=== PATIENT | female | born 1940 | race Caucasian/White ===

== ENCOUNTER 2016-07-31 11:21 | Inpatient (IN) | payer MEDICARE ==
[~2016-07-31] VITALS: Ht 157.5 cm; Wt 71.5 kg
[~2016-07-31 11:21] MED LIST: *ANUSOI PR; /MOM400 PO; ACET65TA OR; ALTA10CA OR; ALTA10CA PO; ALTA5CAP OR; ANALCR TOP; ASPI81TA83 OR; CALCTAB93 OR; CARI350T OR; CIPR250T3 OR; CLOP75TA2 PO; COLA100C2 OR; COLA50CA3 PO; CYCL5TA PO; CYCLOBENZAPRINE PO; DIABETES PILL; DULC10SU2 PO; DULC10SU9 PR; FLEEENE4 PR; FLEXERIL OR; GLUC500T PO; LEVO100T OR; LIPI10TA OR; LIPI20TA OR; LOPR50TA OR; LOPR50TA PO; LYRI100C10 PO; LYRI200C PO; METH4PACK PO; MIRA255PW PO; MIRALEX PO; NEUR300C OR; OMEP40CA2 PO; OXY IR PO; OXYC-274 PO; OXYC10TA97 OR; OXYC20TA2 PO; OXYC20TA21 PO; OXYC30TA4 PO; OXYC5CAP4 OR; OXYCO5TA PO; PERCOCET PO; PLAV75TA2 OR; PREG100CA OR; PRIL40CA OR; PROT1TAB2 PO; RANI150T PO; ROBA500T OR; ROBA500T PO; SENO8.6T5 PO; SENO8.6T9 PO; SOMA350T PO; TYLE325T5 PO; VICODINES TAB OR; ZOFR4TAB3 PO; [UNRECOGNIZED DRUG - CODE] PO; morphine sulfate IR PO; pennsaid TOP; prochlorperazine OR
[2016-07-31 12:15] LABS: MEAN CORPUSCULAR HEMOGLOBIN 31.1 pg (27.0-33.0); MEAN CORPUSCULAR HGB CONC 33.2 g/dl (32.0-36.5); MEAN CORPUSCULAR VOLUME 93.8 fl (80.0-96.0); PLATELET COUNT, AUTOMATED 213 k/mm3 (150-450); RED CELL DISTRIBUTION WIDTH 13.3 % (11.5-14.5); WHITE BLOOD COUNT 13.1 K/mm3 (4.0-10.0)
[2016-07-31] MEDS ORDERED: ACETAMINOPHEN 325 MG TAB As Ordered ONE (12:22)
[2016-07-31] MEDS ORDERED: ONDANSETRON 4MG/2ML VIAL (J2405) As Ordered ONE (12:23)
[2016-07-31] MEDS ORDERED: MORPHINE 4 MG/ML 1ML SYRINGE As Ordered ONE ×6 (12:23→22:30)
[2016-07-31 12:53] LABS: ANION GAP 10 MEQ/L (8-16); BLOOD UREA NITROGEN 14 MG/DL (7-18); CALCIUM LEVEL 9.1 MG/DL (8.8-10.2); CARBON DIOXIDE LEVEL 25 MEQ/L (21-32); CHLORIDE LEVEL 105 MEQ/L (98-107); CREATININE FOR GFR 0.88 MG/DL (0.55-1.02); GLOMERULAR FILTRATION RATE > 60.0 (>39); GLUCOSE, FASTING 155 MG/DL (83-110); POTASSIUM SERUM 3.8 MEQ/L (3.5-5.1); SODIUM LEVEL 140 MEQ/L (136-145)
--- NOTE | 2016-07-31 15:08 | REP ---
RENAL AND BLADDER ULTRASOUND: Real-time sonographic evaluation of the kidneys performed and demonstrates both kidneys to be normal in size and echotexture, right kidney measuring 11.0 x 4.6 x 3.8 cm and left kidney 12.6 x 5.6 x 5.0 cm. There is no hydronephrosis. No renal stone is seen. Urinary bladder is mildly distended with no gross abnormality. IMPRESSION: Negative renal ultrasound. Signed by James Funez MD 07/31/2016 04:13 P
[2016-07-31] MEDS ORDERED: GASTROGRAFIN SOLUTION 30ML (Q9963) As Ordered ONE (16:38)
--- NOTE | 2016-07-31 17:15 | REP ---
Abdominal series: Three views: History: Abdominal pain. Comparison chest x-ray is from 03/22/2014. Findings: Upright chest radiograph shows no evidence of infiltrate or free subdiaphragmatic air. Heart is not enlarged. The aorta is calcific. The pleural angles are sharp. Supine erect views of the abdomen demonstrate air and stool in a nondistended colon. No evidence of obstruction is seen. Phleboliths are noted in the pelvis. No mass or organomegaly is seen. Impression: Negative abdominal series. Signed by Vj Clark MD 08/01/2016 09:39 A
[2016-07-31] MEDS ORDERED: ISOVUE-370 76% 100ML VIAL (Q9967) As Ordered ONE (17:54)
--- NOTE | 2016-07-31 19:20 | REPUSA ---
CLINICAL HISTORY: Abdominal pain. TECHNIQUE: Multiple axial, sagittal and coronal CT images were obtained through the abdomen and pelvi s after administration of oral and intravenous contrast material. COMMENTS: The liver is of uniform attenuation without mass or defect. There is no intra or extrahepatic biliary ductal dilatation. The spleen is normal. The gallbladder is within normal limits. The pancreas is at rophic and partially fatty-replaced.. There is no evidence of adrenal mass. Both kidneys demonstrate prompt and equal nephrograms. The kidneys are normal in size, shape and conf iguration. There is no evidence of renal or ureteral mass. No renal or ureteral calculi are identifie d. There is no hydroureter or hydronephrosis. No evidence for appendicitis. There is no bowel wall thickening. No evidence for small or large yevgeniy l obstruction. There is no evidence of abdominal ascites or lymphadenopathy. There is no evidence of intrinsic or extrinsic bladder mass. There is no pelvic ascites or lymphadeno dar. Status post complete hysterectomy. Images of the lung bases show no evidence of pleural or parenchymal mass. There are no pleural effusi ons. The bony structures are free of lytic or blastic lesions. Multilevel degenerative changes are seen in volving the thoracolumbar spine. Scattered calcifications are seen involving the aorta and major bran ches compatible with atherosclerosis. IMPRESSION: No evidence of acute abdominal or pelvic pathology. Thank you for your kind referral of this patient.
[2016-07-31] MEDS ORDERED: CIPROFLOXACIN/D5W 400 MG/200 ML BAG (J0744) As Ordered ONE (19:24)
[2016-07-31] MEDS ORDERED: RAMI10CA PO (19:44)
[2016-07-31] MEDS ORDERED: PRED10TA PO (19:44)
[2016-07-31] MEDS ORDERED: LEVO100T5 PO (19:44)
[2016-07-31] MEDS ORDERED: METF500T PO (19:44)
[2016-07-31] MEDS ORDERED: POTA99TA PO (19:44)
[2016-07-31] MEDS ORDERED: ACETAMINOPHEN TAB 650MG DOSE (2X325MG) PO PRN (20:30)
[2016-07-31] MEDS ORDERED: GLUCOSE 4 GM CHEW TABLET PO PRN (20:30)
[2016-07-31] MEDS ORDERED: DEXTROSE 50% 50 ML SYRINGE IV PRN (20:30)
[2016-07-31] MEDS ORDERED: GLUCAGON FOR INJ 1 MG VIAL (J1610) SC PRN (20:30)
[2016-07-31] MEDS ORDERED: PERCOCET 5MG/325MG TAB As Ordered ONE (20:36)
[2016-07-31] MEDS ORDERED: MORPHINE 2 MG/ML 1ML SYRINGE As Ordered ONE (20:38)
[2016-07-31] MEDS ORDERED: VENLAFAXINE 37.5 MG TAB PO SCH (21:00)
--- NOTE | 2016-07-31 23:56 | HPE ---
DATE OF ADMISSION: 07/31/2016 PRIMARY CARE PHYSICIAN: Dr. Jakub Burgess PAIN MANAGEMENT: Dr. Moreno CHIEF COMPLAINT: Severe lower back pain with radiation to the right lower extremity. HISTORY OF THE PRESENT ILLNESS: Ms. Pollard is a 75-year-old female with multiple past medical history who presented due to experiencing severe lower back pain with radiation to the right lower extremity. The patient expressed that she has been having back pain for the past year and has been following with Dr. Moreno for pain management. The patient expressed that she received a spine injection for pain control which was performed by Dr. Moreno about 10 days ago. The patient expressed that for the past 10 days she was asymptomatic. However, yesterday, when she was reading the newspaper, she noticed excruciating back pain which was about 10/10 sharp with radiation to the right lower extremity. The patient expressed that the pain was so severe that she cannot ambulate independently and she was walking with the help of her . The patient expressed that yesterday she did not come to the hospital because she thought that the pain would decrease. Patient denies losing bowel or bladder control or numbness in the medial side of her lower extremities bilaterally. The patient also had one episode of night sweats and also patient had chills and felt warm; however, she did not take her temperature. In the morning, the patient expressed that she could not tolerate the pain anymore and that is the reason she came to the hospital. The patient expressed that she does not drive and her brought her to the hospital. The patient also experienced nausea when the pain started, and the patient had two episodes of vomiting. However, the patient also denies seeing any blood in the vomit. The patient denies lightheadedness and dizziness. The patient also denies any sick contact. The patient expressed that any movement increased her pain tremendously. However, if the patient laid down, the pain will be constant and nothing decreases it. At the emergency room (ER), the patient received acetaminophen and four doses of morphine 4 mg IV. The patient also received one dose of ceftriaxone due to having abnormal UA and hospitalist was called to admit the patient. ALLERGIES: SULFA. HOME MEDICATIONS: - Synthroid 100 mcg by mouth daily - metformin 500 mg by mouth twice a day - potassium 99 mg by mouth twice a day - prednisone 10 mg by mouth daily - ramipril 10mg by mouth daily PAST MEDICAL HISTORY: Diabetes mellitus, type 2. Transient ischemic attack (TIA). Hypertension. Vertebral artery stenosis. MRA which was done on 04/18 shows vertebral and basilar pattern, mild intracranial stenosis. Hypothyroidism. Recurrent nephrolithiasis since she was 17 years old. 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 The patient is following with Dr. Moreno (pain management). The patient was followed with [facility] 06/18. Continue conservative management. Peptic ulcer disease. Left ophthalmic artery aneurysm. MRA of the brain shows 1.8 mm on 02/18/2012. MRA of 04/18, no changes. Mild aneurysmal dilation. Cataract surgery in both eyes performed in 2012. T12 compression fracture. PAST SURGICAL HISTORY: Left wrist fracture when she was a child. Appendectomy at 16 years old. Open removal of the kidney stones two times. Left tibia fracture in 1970. Exploratory laparotomy. Hysterectomy. Left breast lumpectomy, benign. Right carpal tunnel release. Both eyes cataract lens implantation in 2012. Colonoscopy, unremarkable, which was done 12/2011. Esophagogastroduodenoscopy (EGD). Pyloric channel mentions of ulcer in 2011. SOCIAL HISTORY: The patient lives with her . The patient has not traveled outside of the [place]. The patient had five children. However, her daughter . However, she does not know what caused her . The patient, at this moment, has two sons and three daughters who are healthy for their age. The patient denies alcohol use. The patient denies history of illicit drug use or smoking. The patient has one dog. FAMILY HISTORY: The patient had one brother who had a massive heart attack and 15 years ago. The patient's father due to laryngeal cancer. The patient's mother due to heart failure at age 86. REVIEW OF SYSTEMS: The patient expressed that she has been experiencing night sweats and chills and the patient expressed that she feels warm; however, she did not take her temperature. HEENT: The patient denies acute vision or hearing changes. However, the patient expressed that she has been sensitive to light for many years. The patient denies problems with chewing food. The patient denies sinusitis. NECK: The patient denies lumps, bumps, or decreased range of motion of her neck. However, the patient expressed that she has neck pain every time that she has back pain and this is a problem for the past year. HEART: The patient denies chest pain, palpitations, racing or skipping heartbeat. LUNGS: The patient denies shortness of breath, wheezing. BACK: The patient experienced severe back pain on the lower back bilaterally with radiation to the right lower extremity. The patient expressed that palpation of the area as well as any movement increases the pain. However, the pain does not decrease by anything. ABDOMEN: The patient expressed that she has been nauseated since yesterday, possibly secondary to pain. The patient had two episodes of vomiting. However, the patient denies emesis, hemoptysis. The patient also denies melena, hematochezia. NEUROLOGIC: The patient had a history of transient ischemic attack (TIA). However, the patient denies a history of seizure-type activities. PHYSICAL EXAMINATION: VITAL SIGNS: Blood pressure 175/102, pulse 132, respiratory rate 20, temperature 101.6, pulse oximetry 94% on room air. Weight 72.57 kg. Height 157.48 cm. Body mass index (BMI) 29.26. GENERAL APPEARANCE: The patient was lying in bed in acute distress due to pain. The patient was awake, alert and oriented to time, place and person. HEENT: Normocephalic, atraumatic. Pupils are equal. Oral mucosa is moist. NECK: Soft, supple. No lymphadenopathy. No thyromegaly. The patient has mild pain with the palpation of the neck, posterior side of the neck. HEART: Tachycardia. Normal S1, S2. LUNGS: Clear breath sounds bilaterally. Good air movement. ABDOMEN: Soft, nontender. Positive bowel sounds in all quadrants. BACK: The patient has tenderness to palpation in the thoracic and lumbar area. The patient has mild range of motion of her back secondary to the pain. EXTREMITIES: No lower extremity edema. +2 pulses in both lower extremities. 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 The patient has normal left lower extremity range of motion; however, range of motion of the right lower extremity was decreased secondary to pain. Also, the patient has 5/5 strength of the left lower extremity and 4/5 strength in the right lower extremity. However, the patient has normal sensation in both lower extremities. NEUROLOGIC: Cranial nerves II-XII intact. Kernig and Brudzinski sign was negative. LABORATORY DATA: White blood cells 13.1, red blood cells 4.16, hemoglobin 12.9, hematocrit 39, MCV 93.8, MCH 31.1, MCHC 33.2, RDW 13.3, platelet count 213, neutrophils 68, lymphocytes 28, monocytes 4, platelet estimate normal, red blood cell morphology normal. Sodium 140, potassium 3.8, chloride 105, carbon dioxide 25, anion gap 10, BUN 14, creatinine 0.88, glomerular filtration rate more than 60, fasting glucose 155, lactic acid 109, calcium 9.1, C-reactive protein 6.76. Urine color yellow, urine appearance hazy, urine pH 0, urine specific gravity 1.019, urine protein 1+, urine glucose 1+, urine ketones negative, urine blood 2+, urine nitrite negative, urine bilirubin negative, urine urobilinogen 0.2, urine leukocyte esterase 3+, urine white blood cells 141, urine red blood cells 27, urine hyaline cast 0, urine bacteria 2+, urine squamous epithelial cells 1. Blood culture is pending. Urine culture is pending. Renal ultrasound: Negative. Abdomen and chest x-ray: Negative abdominal series. CT of the abdomen and pelvis with contrast, which shows no evidence of acute abdominal or pelvic pathology. ASSESSMENT AND PLAN: 1. Lower back pain with radiation to the right lower extremity. The patient has been diagnosed with spinal stenosis and has been following with Dr. Moreno (pain management) for the past year. The patient received a spine injection about 10 days ago. Due to possibility of epidural abscess versus neuropathy I have ordered MRI and the result is pending at this time. Also, we are managing the pain with Percocet, morphine. Due to the patient having a history of recurrent nephrolithiasis, renal ultrasound as well as abdominal x-ray and abdomen and pelvic CT were performed and they were negative for any new findings. Patient denies acute photophobia however has been having sensitivity to light for the past year. Also, the patient expressed that she has neck pain every time that she has back pain. The patient's Kernig and Brudzinski sign were negative. However, we have started the patient on ceftriaxone due to possibility of urinary tract infection (UTI). Also, the patient is on prednisone 10 mg by mouth daily. The patient expressed that she has been taking this medication. She has been taking it for back pain. This is a questionable medication. However, I did not stop this medication since the patient has been taking it for a long time. Further investigation required. 2. Abnormal urinalysis. The urine result indicating UTI; however, the urine culture is pending. Therefore, we have started the patient on ceftriaxone and we will continue to monitor the patient for any abnormal symptoms. 3. Diabetes mellitus, type 2. At home, the patient is on metformin. However, we have stopped metformin and started the patient on sliding scale and continue with a consistent carbohydrate diet. 4. Deep vein thrombosis (DVT) prophylaxis. We will continue the patient on heparin 5000 units subcu every 8 hours. 5. Hypothyroidism. We will continue the patient on Synthroid. 6. Hypertension. We will continue the patient on ramipril 10 mg by mouth daily. 7. Recurrent nephrolithiasis. This is a chronic issue. Abdominal x-ray, renal US and abdomen and pelvis CT were negative for new finding. My preceptor for this patient encounter was Dr. Ag Peraza. The preceptor was physically present in the building during the encounter and was fully available. As needed, all aspects of the patient interview, examination, medical decision making process, and medical care plan development were reviewed and approved by the preceptor. The preceptor is aware and concurs with the plan as stated in the body of this note and will attest to such by his/her cosignature. I, Jessica Peraza, have both independently examined this patient as well as reviewed the documentation. I have discussed in detail with the resident the findings and plan of treatment as documented in the residents documentation. I will continue to follow the patient and offer further guidance to the patients care as necessary during this hospital stay. FELICIA
[2016-08-01] VITALS (8 sets, daily range): BP systolic 100–194; BP diastolic 42–99
[2016-08-01] MEDS ORDERED: cefTRIAXone SOD 1 GM in D5W MINI-BAG PLUS 50 ML IV SCH ×2
[2016-08-01] MEDS ORDERED: PERCOCET 5MG/325MG TAB As Ordered ONE (00:04)
[2016-08-01] MEDS ORDERED: MORPHINE 2 MG/ML 1ML SYRINGE As Ordered ONE (00:04)
--- NOTE | 2016-08-01 00:43 | EDDOCDS ---
Physician Documentation [facility] Name: Ynes Pollard Age: 75 yrs Sex: Female : 1940 Arrival Date: 07/31/2016 Time: 11:21 Bed 17 Private MD: Jakub Burgess Disposition: 07/31 19:22 Critical Care: Critical care not applicable. pc Disposition: 07/31/16 19:29 Hospitalization ordered by Joselito Peraza for Inpatient Admission. 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 - Bed requested for 5 Vizcarra. - Status is Inpatient Admission. cf2 - Condition is Stable. - Problem is new. - Symptoms have improved. HPI: 12:24 This 75 yrs old Female presents to ER via Wheelchair with complaints of pc Abdominal Pain. 12:24 The history is obtained from the patient. The patient presents with abdominal pain, pc right lower quadrant. 12:29 The symptoms began gradually 17 hr. ago, and became worse this morning. Symptoms are pc ongoing and are worsening. She developed right sided abdominal pain last night, without any nausea, vomiting or bowel changes. She developed chills throughout the night, which has caused her chronic low back pain to flare up. She was seen at her [facility] today and was sent here for evaluation. She is one week s/p epidural injection by Dr. Moreno, with no post-procedure complications and with improved back pain. At its worst, the symptoms were a 10 out of 10. In the emergency department, the symptoms are a 10 out of 10. The pain is described as "pain". The is primarily located right lower quadrant. It does not radiate. The pain was associated with fever, chills, loss of appetite. The symptoms are aggravated by movement, are alleviated by nothing. The patient has not experienced similar symptoms in the past. Historical: - Allergies: SULFA (SULFONAMIDES); - Home Meds: 1. metformin 500 mg Oral tab 2 times per day 2. Ramipril Oral once daily 3. prednisone 10 mg Oral tab once daily 4. levothyroxine 100 mcg Oral cap 1 cap once daily 5. 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 - Social history: Smoking status: Patient states was never smoker of tobacco. No barriers to communication noted, The patient speaks fluent Kiswahili. - : The pt / caregiver states he / she is not on anticoagulants. Home medication list is obtained from the patient, family members. - Hospitalizations: : No recent hospitalization is reported. - Exposure Risk Screening:: None identified. - Immunization history:: All immunizations up-to-date. - Family history: Not pertinent. - Social history:: the patient is a non-smoker, the patient does not drink alcohol. ROS: 12:29 All systems are negative except if listed. The constitutional, cardiovascular, pc respiratory and neurological components are also addressed in the HPI. Exam: 12:29 General Appearance: alert, moderate distress, anxious. pc 12:29 ENT: ear, nose and throat normal, pharynx normal. 12:29 Neck: The exam reveals no acute abnormalities. ROM is normal and painless. No nuchal rigidity is noted.. 12:29 Respiratory: no respiratory distress, normal breath sounds. 12:29 Cardiovascular: regular pulse rate, regular heart rhythm, normal heart sounds, equal and full pulses bilaterally. 12:29 Abdomen: soft, no organomegaly, normal bowel sounds, moderate tenderness in the right upper quadrant, severe tenderness in the right lower quadrant, with rebound, voluntary guarding is not appreciated, involuntary guarding is elicited in the right upper quadrant and right lower quadrant. 12:29 Back: Pain is noted in the lumbar area, There is no skin color changes or swelling to suggest post injection infection. 12:29 Skin: skin color is normal, warm, dry. 12:29 Extremities: The extremities have a grossly normal appearance, are non-tender, without acute ROM abnormalities. 12:29 Neuro: oriented x 3, cranial nerves normal as tested, no motor deficits, no sensory deficits. 12:29 Psych: mood is normal. Vital Signs: 11:23 BP 175 / 102; Pulse 132; Resp 20 S; Temp 101.6(O); Pulse Ox 94% on R/A; Weight 72.57 kg dd6 / 159.99 lbs (R); Height 5 ft. 2 in. (157.48 cm) (R); 15:04 BP 146 / 65 (auto/); nr1 15:57 Resp 22; Pulse Ox 90% on R/A; Pain 7/10; nr1 16:26 BP 152 / 70 (auto/); nr1 16:26 Resp 16; Pulse Ox 97% ; nr1 17:21 BP 171 / 73 (auto/); nr1 17:21 Pulse 101; Resp 20; Temp 98.4(O); Pulse Ox 97% ; nr1 18:19 BP 164 / 74; Pulse 115; Resp 16; Temp 98.4(O); Pulse Ox 95% on R/A; Pain 10/10; nr1 20:45 Pulse Ox 94% ; cf2 20:45 BP 142 / 88; Pulse 92; Resp 20; Temp 98.0; Pain 8/10; cf2 21:04 Pulse Ox 95% ; cf2 22:01 Pulse Ox 95% ; cf2 22:18 Pulse Ox 94% ; cf2 22:29 Pulse Ox 92% ; cf2 22:40 Pulse Ox 92% ; cf2 22:49 Pulse Ox 94% ; cf2 22:59 Pulse Ox 94% ; cf2 23:08 Pulse Ox 95% ; cf2 23:19 Pulse Ox 95% ; cf2 23:28 Pulse Ox 96% ; cf2 23:38 Pulse Ox 96% ; cf2 23:45 Pulse Ox 96% ; cf2 23:53 Pulse Ox 95% ; cf2 23:58 Pulse Ox 95% ; cf2 11:23 Body Mass Index 29.26 (72.57 kg, 157.48 cm) dd6 MDM: 11:41 IV Saline Lock ordered. pc 11:41 -Blood Culture (Adults Only), peripheral from different site, or from device/port/PICC pc etc. if present ordered. 11:41 CBC with Diff Ordered. EDMS 11:41 MED Profile Ordered. EDMS 11:41 Lactic Acid (Funez tube on ice) Ordered. EDMS 11:42 C Reactive Protein Ordered. EDMS 11:42 -Blood Culture Ordered. EDMS 11:43 NOTHING BY MOUTH+DIET ordered. EDMS 11:50 -Blood Culture (Adults Only), peripheral from different site, or from device/port/PICC lbd etc. if present complete. 11:52 BLOOD CULTURES Ordered. EDMS 12:16 DIFFERENTIAL NO CHARGE Ordered. EDMS 12:16 PLATELET ESTIMATE Ordered. EDMS 12:20 Acetaminophen Tablet 650 mg PO once ordered. pc 12:21 Urinalysis Ordered. EDMS 12:21 Urine Culture Ordered. EDMS 12:21 morphine 4 mg IVP once ordered. pc 12:21 Ondansetron 4 mg IVP once ordered. pc 12:22 CBC with Diff Reviewed. pc 12:29 Differential diagnosis: cholecystitis, perforated viscous, Peritonitis, pc Ureterolithiasis, chronic back pain with acute exacerbation. Plan: meds, labs, imaging. 12:52 CBC with Diff Reviewed. pc 12:52 Lactic Acid (Funez tube on ice) Reviewed. pc 12:52 PLATELET ESTIMATE Reviewed. pc 13:30 MED Profile Reviewed. pc 13:30 C Reactive Protein Reviewed. pc 13:43 Urinalysis Reviewed. pc 13:44 morphine 4 mg IVP every 30 minutes; Document pain score/vitals after each dose (Hold if pc SBP < 90mmHg) x2 ordered. 13:46 Ultrasound, Renal Ordered. EDMS 13:58 Financial registration complete. jls1 13:59 [facility] Payment Agreement was scanned into [employer] and attached to record. jls1 14:37 Abdomen, Flat\\E\\Upright,PA Chest Ordered. EDMS 16:08 Ultrasound, Renal Reviewed. pc 16:10 CT ABD & PELVIS: IV and Oral Contrast Ordered. EDMS 18:22 morphine 4 mg IVP every 30 minutes; Document pain score/vitals after each dose (Hold if pc SBP < 90mmHg) x2 ordered. 19:17 Ultrasound, Renal Reviewed. pc 19:17 Abdomen, Flat\\E\\Upright,PA Chest Reviewed. pc 19:21 Ciprofloxacin 400 mg IVPB at 200 mL/hr once over 60 mins ordered. pc 19:22 BED REQUEST+ADM ordered. EDMS 19:22 Data reviewed: old medical records, vital signs, nurses notes. Test interpretation: LAB pc - all labs as ordered have been reviewed, interpreted and considered in the overall management of the clinical presentation; X-RAY - Test interpretation: interpreted by Radiologist and personally reviewed, Abdomen/Pelvis CT; no acute disease. The patient has been re-examined and re-evaluated. The patient's symptoms have mildly improved after treatment. Disposition: The historical points, examination findings, and any diagnostic results supporting the provided diagnosis, were discussed with the patient or legal guardian. The need for further work-up and/or treatment in the hospital was explained. 19:28 Physician consultation: Dr. Joselito Peraza MD was contacted at 19:28, regarding admission, mm11 and will see patient in ED, shortly. 19:29 NS 0.9% 1000 ml IV at 100 mL/hr continuous ordered. mm11 20:17 MRI Screening Tool - Place on chart, inform RN ordered. ss12 20:18 -MRI-Spine, Lumbar with contrast Ordered. EDMS 20:22 PHYSICAL THERAPY EVAL & TREAT ordered. EDMS 20:22 CONSISTENT CARBOHYDRATES ordered. EDMS 20:24 CBC WITH DIFFERENTIAL Ordered. EDMS 20:24 COMPLETE COMPHRENSIVE METABOLI Ordered. EDMS 20:25 -MRI-Spine, Lumbar without contrast Ordered. EDMS 20:53 MRI Screening Tool - Place on chart, inform RN complete. tmm1 21:31 oxyCODONE-acetaminophen 5 mg-325 mg 1 tabs PO once ordered. cf2 21:32 morphine 2 mg IVP once ordered. cf2 22:27 Admission / Observation Status ordered. EDMS 22:28 Written Provider Order was scanned into [employer] and attached to record. tmm1 22:51 morphine 5 mg IVP once ordered. cf2 08/01 00:13 oxyCODONE-acetaminophen 5 mg-325 mg 1 tabs PO once ordered. cf2 00:13 morphine 2 mg IVP once ordered. cf2 Administered Medications: 07/31 12:54 Drug: Acetaminophen 650 mg [acetaminophen 325 mg tablet (2 tabs)] Route: PO; nr1 12:54 Drug: morphine 4 mg [morphine 4 mg/mL intravenous cartridge (1 mL)] Route: IVP; Site: nr1 left antecubital; 12:54 Drug: Ondansetron 4 mg [ondansetron HCl 2 mg/mL intravenous solution (2 mL)] Route: nr1 IVP; Site: left antecubital; 13:51 Drug: morphine 4 mg [morphine 4 mg/mL intravenous cartridge (1 mL)] Route: IVP; Site: nr1 left antecubital; 15:09 Drug: morphine 4 mg [morphine 4 mg/mL intravenous cartridge (1 mL)] Route: IVP; Site: nr1 left forearm; 18:32 Drug: morphine 4 mg [morphine 4 mg/mL intravenous cartridge (1 mL)] Route: IVP; Site: nr1 left antecubital; 19:27 Drug: Ciprofloxacin 400 mg [ciprofloxacin 400 mg/200 mL in 5 % dextrose intravenous cf2 piggyback] Route: IVPB; Rate: 200 mL/hr; Infused Over: 60 mins; Site: left antecubital; 19:54 Drug: morphine 4 mg [morphine 4 mg/mL intravenous cartridge (1 mL)] Route: IVP; Site: cf2 left antecubital; 19:54 Drug: NS 0.9% 1000 ml [sodium chloride 0.9 % intravenous solution] Route: IV; Rate: 100 cf2 mL/hr; Site: left antecubital; 20:40 Drug: oxyCODONE-acetaminophen 1 tabs [oxycodone-acetaminophen 5 mg-325 mg tablet (1 cf2 tabs)] Route: PO; 21:33 Follow up: Response: Pain is resolved cf2 20:40 Drug: morphine 2 mg [morphine 2 mg/mL intravenous cartridge (1 mL)] Route: IVP; Site: cf2 left antecubital; 21:33 Follow up: Response: Pain is increased cf2 22:35 Drug: morphine 5 mg [morphine 4 mg/mL intravenous cartridge (1.25 mL)] Route: IVP; cf2 Site: left antecubital; 08/01 00:13 Drug: morphine 2 mg Route: IVP; Site: left antecubital; cf2 00:14 Follow up: Response: Pain is decreased cf2 00:14 Drug: oxyCODONE-acetaminophen 1 tabs [oxycodone-acetaminophen 5 mg-325 mg tablet (1 cf2 tabs)] Route: PO; 00:14 Follow up: Response: Pain is decreased cf2 Signatures: Dispatcher [employer] EDMS Andrea Cali MD MD pc Daly, Linda, Crime Scene Technician Unit lbd Tony Pinzon DO DO mm11 Haris Alejandre ss12 McLDiana sanchez, INDEPENDENT CONTRACTOR INDEPENDENT CONTRACTOR tmm1 Yeny An RN RN mk4 Tierra Pitt RN RN [place] jls1 Adele Perales RN RN cf2 Jamaal Saravia RN RN sa The chart was reviewed and I authenticate all verbal orders and agree with the evaluation and treatment provided.Attachments: 07/31 13:59 [facility] Payment Agreement jls1 22:28 Written Provider Order tmm1 MTDD
[2016-08-01] MEDS: HEPARIN SOD (PORCINE) 5000 UNITS/ML VIAL SC SCH ×4 (01:18→21:16)
[2016-08-01] MEDS: MORPHINE 2 MG/ML 1ML SYRINGE IV PRN ×6 (01:18→23:45)
[2016-08-01] MEDS: HumaLOG INSULIN (NovoLOG) PER UNIT SC SCH ×5 (01:22→20:43)
[2016-08-01] MEDS: LEVOTHYROXINE 0.1 MG TAB (100 MCG) PO SCH (05:36)
[2016-08-01 06:59] LABS: BASO # 0.2 K/mm3 (0.0-0.2); EOS # 0.1 K/mm3 (0.0-0.50); EOS % 0.4 % (0.0-3.0); LARGE UNSTAINED CELL # 0.3 K/mm3 (0.0-0.4); LARGE UNSTAINED CELL % 1.9 % (0.0-4.0); LYMPH # 2.9 K/mm3 (1.5-4.5); LYMPH % 16.8 % (24.0-44.0); MEAN CORPUSCULAR HEMOGLOBIN 30.3 pg (27.0-33.0); MEAN CORPUSCULAR HGB CONC 33.6 g/dl (32.0-36.5); MEAN CORPUSCULAR VOLUME 90.3 fl (80.0-96.0); MONO # 1.1 K/mm3 (0.0-0.8); MONO % 7.3 % (0.0-5.0); NEUTROPHILS # 11.2 K/mm3 (1.8-7.7); NEUTROPHILS % 72.6 % (36.0-66.0); PLATELET COUNT, AUTOMATED 167 k/mm3 (150-450); RED CELL DISTRIBUTION WIDTH 14.2 % (11.5-14.5); WHITE BLOOD COUNT 15.4 K/mm3 (4.0-10.0)
[2016-08-01 07:16] LABS: ALBUMIN 3.1 GM/DL (3.2-5.2); ALBUMIN/GLOBULIN RATIO 0.82 (1.00-1.93); ALKALINE PHOSPHATASE 48 U/L (45-117); ALT/SGPT 19 U/L (12-78); ANION GAP 9 MEQ/L (8-16); AST/SGOT 11 U/L (15-37); BILIRUBIN,TOTAL 0.5 MG/DL (0.2-1.0); BLOOD UREA NITROGEN 9 MG/DL (7-18); CARBON DIOXIDE LEVEL 26 MEQ/L (21-32); CHLORIDE LEVEL 104 MEQ/L (98-107); CREATININE FOR GFR 0.66 MG/DL (0.55-1.02); GLOMERULAR FILTRATION RATE > 60.0 (>39); GLUCOSE, FASTING 153 MG/DL (83-110); POTASSIUM SERUM 3.7 MEQ/L (3.5-5.1); SODIUM LEVEL 139 MEQ/L (136-145); TOTAL PROTEIN 6.9 GM/DL (6.4-8.2)
[2016-08-01] MEDS: RAMIPRIL 5 MG CAP PO SCH (08:04)
[2016-08-01] MEDS: predniSONE 10 MG TAB PO SCH (08:05)
[2016-08-01] MEDS: PERCOCET 5MG/325MG TAB PO PRN ×2 (08:06→13:23)
[2016-08-01] MEDS ORDERED: SODIUM CHLORIDE 0.9% 1000 ML IV SCH (08:15)
--- NOTE | 2016-08-01 08:56 | PHACANCOPD ---
PHARMACY VANCOMYCIN DOSING Pt Demographics Demographics Patient Age:75 , Weight:72.300 , Gender: female Adjusted Body Weight Date: 08/01/16, Adjusted Body Weight: Kg Events Past 24 Hours Events Past 24 Hours: YES: Elevation in WBC, NO: Change in CrCl, Dialysis, Diuretic Therapy, Fever, Other, Pending Diagnostics, Pending Procedures Vancomycin Vancomycin indication: SEPSIS Vancomycin Target Ranges: 15-20 mcg/ml Vancomycin Load Y/N: Yes Load Dose Date Time Vancomycin Load Dose: 1500MG Date: 08/01 Time: 0900 Vancomycin Dose Date: 08/01/16. Current Vancomycin Dose: Intermittent Dosing?: No Labs Labs Vital Signs Label Value Date Time Patient Temperature 98.7 degrees F 08/01/16 0600 Temperature Source Tympanic 08/01/16 0600 Item Value Date Time White Blood Count 13.1 K/mm3 H 07/31/16 1158 White Blood Count 15.4 K/mm3 H 08/01/16 0640 Creatinine 0.66 MG/DL 08/01/16 0640 Micro Microbiology 08/01/16 Blood Culture, Received Pending 07/31/16 Blood Culture - Preliminary, Resulted 07/31/16 Blood Culture, Received Pending 07/31/16 Urine Culture, Received Pending Creatinine Clearance Date:08/01/16. Creatinine Clearance: . Assessment and Plan Maintaining Current Dose?: Yes Reason for dose change: No Dose Change Pharmacist Note Pharmacist Note Date: 08/01/16. Pharmacist note: Patient was started on Vancomycin for sepsis. She has no history of Vancomycin use at our facility and no history of MRSA. She has 1 set of blood cultures that are showing preliminary gram + cocci in clusters. Patient was loaded on Vancomycin 1500mg then continued on 1 gram q18h. We will continue to monitor and make adjustments as necessary. KENJI POE PHARMACY Aug 01, 2016 08:56
[2016-08-01] MEDS: PIPERACILLIN/TAZOBACTAM SOD 3.375 GM in D5W MINI-BAG PLUS 50 ML IV SCH ×3 (08:57→21:15)
[2016-08-01 09:35] LABS: VENOUS BASE EXCESS -1.8 (-2.0-2.0); VENOUS O2 SATURATION 52.2 % (60.0-80.0); VENOUS PARTIAL PRESSURE CO2 58.1 mmHg (38.0-50.0); VENOUS PARTIAL PRESSURE O2 29.1 mmHg (30.0-50.0); VENOUS TOTAL CO2 27.8 MEQ/L (24.0-28.0)
[2016-08-01] MEDS: VANCOMYCIN HCL 1,000 MG, VIAL MATE ADAPTER 1 EACH in D5W 250 ML IV SCH (09:41)
[2016-08-01] MEDS ORDERED: VANCOMYCIN HCL 500 MG in D5W MINI-BAG PLUS 100 ML IV ONE (10:00)
--- NOTE | 2016-08-01 10:28 | REP ---
PORTABLE CHEST X-RAY: Single view. HISTORY: Possible pneumonia. Comparison chest x-ray July 31, 2016. FINDINGS: The lungs are symmetrically aerated and remain clear. The pleural angles are sharp. Cardiomediastinal silhouette is unchanged. There is a dextroconvex thoracic curvature again noted. IMPRESSION: No infiltrate seen. Signed by Vj Clark MD 08/01/2016 02:42 P
[2016-08-01] MEDS: SODIUM CHLORIDE 0.9% 1000 ML IV SCH (10:37)
[2016-08-01] MEDS ORDERED: NYSTATIN 100,000 UNITS/GM TOPICAL PWD 15 GM TOP PRN (12:30)
[2016-08-01] MEDS ORDERED: LORazepam 2 MG/ML VIAL (J2060) IV ONE (13:45)
--- NOTE | 2016-08-01 15:45 | IPNPDOC ---
Text Note Date of Service The patient was seen on 08/01/16 at 15:35. NOTE Subjective: Pt states she still has lumbar pain with radiculopathy to the RLE. Objective: Vitals: (see below) General: No acute distress, laying comfortably in bed. HEENT: Moist mucous membranes. Neck: No JVD or lymphadenopathy Cardiac: Tachycardic. regular rhythm. No murmurs Pulm: Clear to auscultation b/l. No wheezing, rhonchi Abd: RLQ tenderness. No rebound/guarding/rigidity. ND + BS. Obese Ext: No edema or cyanosis. Neuro: Strength 5/5 LUE/LLE. 3/5 RLE/RUE. Tremor in b/l upper extremities. CN 2-12 intact. Negative pronator drift. Negative Babinki. DTR 2+ throughout. Labs (see below) Images: Renal u/s 07/31/16 IMPRESSION: Negative renal ultrasound. CT abd/pelvis 07/31/16 The liver is of uniform attenuation without mass or defect. There is no intra or extrahepatic biliary ductal dilatation. The spleen is normal. The gallbladder is within normal limits. The pancreas is atrophic and partially fatty-replaced.. There is no evidence of adrenal mass. Both kidneys demonstrate prompt and equal nephrograms. The kidneys are normal in size, shape and configuration. There is no evidence of renal or ureteral mass. No renal or ureteral calculi are identified. There is no hydroureter or hydronephrosis. No evidence for appendicitis. There is no bowel wall thickening. No evidence for small or large bowel obstruction. There is no evidence of abdominal ascites or lymphadenopathy. There is no evidence of intrinsic or extrinsic bladder mass. There is no pelvic ascites or lymphadenopathy. Status post complete hysterectomy. Images of the lung bases show no evidence of pleural or parenchymal mass. There are no pleural effusions. The bony structures are free of lytic or blastic lesions. Multilevel degenerative changes are seen involving the thoracolumbar spine. Scattered calcifications are seen involving the aorta and major branches compatible with atherosclerosis. IMPRESSION: No evidence of acute abdominal or pelvic pathology. CXR 07/31/16 IMPRESSION: No infiltrate seen. Assessment/Plan 1. Sepsis 2/2 Gram + bacteremia. Recent spine injection 1.5 weeks ago. Patient also has a positive UA. Cultures are pending. Given that the patient is complaining of pretty significant lumbar pain with tremors in the upper extremities, and right-sided weakness, we will obtain MRIs of the spine with contrast to rule out abscess. Patient states she also has history of CVA however she appears weaker on the right than she normally is. Patient will also be having an MRI of the brain to rule out acute/subacute CVA. In the meantime patient is on broad-spectrum antibiotics. IV fluids. 2. Diabetes mellitus - continue to hold metformin. Sliding scale insulin 3. Hypothyroidism- continue Synthroid 4. Hypertension- continue ramipril 5. History of Recurrent nephrolithiasis CT negative- DVT prophy: Heparin subcutaneous VS,Fishbone, I+O VS, Fishbone, I+O Laboratory Tests 08/01/16 06:40 Calcium Level 8.0 L, Aspartate Amino Transf (AST/SGOT) 11 L, Alanine Aminotransferase (ALT/SGPT) 19, Alkaline Phosphatase 48, Total Bilirubin 0.5, Total Protein 6.9, Albumin 3.1 L, Red Blood Count 3.60 L, Mean Corpuscular Volume 90.3, Mean Corpuscular Hemoglobin 30.3, Mean Corpuscular Hemoglobin Concent 33.6, Red Cell Distribution Width 14.2, Neutrophils (%) (Auto) 72.6 H, Lymphocytes (%) (Auto) 16.8 L, Monocytes (%) (Auto) 7.3 H, Eosinophils (%) (Auto ) 0.4, Basophils (%) (Auto) 1.0, Neutrophils # (Auto) 11.2 H, Lymphocytes # ( Auto) 2.9, Monocytes # (Auto) 1.1 H, Eosinophils # (Auto) 0.1, Basophils # (Auto ) 0.2 Vital Signs Date Time Temp Pulse Resp B/P Pulse Ox O2 Delivery O2 Flow Rate FiO2 08/01/16 14:53 Room Air 08/01/16 13:53 16 08/01/16 13:16 99.2 106 127/58 96 08/01/16 06:00 2.0 I&O- Last 24 Hours up to 6 AM 08/01/16 05:59 Output Total 100 ml Balance -100 ml ARABELLA PULLIAM MD Aug 01, 2016 15:45
[2016-08-01] MEDS: CYCLOBENZAPRINE 5MG TABLET PO PRN (20:32)
--- NOTE | 2016-08-01 20:40 | REPUSA ---
CLINICAL HISTORY: Headaches. CVA. TECHNIQUE: MRI of the brain was performed without administration of intravenous contrast material. T1 spine echo, T2 fast spin echo, DWI and FLAIR sequences were obtained in sagittal, axial and coronal planes. FINDINGS: The sella and parasellar regions are unremarkable in appearance. The corpus callosum and cerebellar t onsils are of normal configuration and position. There are no intra or extra-axial collections. There is no mass effect or midline shift. There is no evidence of hematoma formation. There is no hydrocep halus. The brain stem shows no mass effects, infarcts or hemorrhage. There are no cerebellopontine tumors. T he acoustic nerves are symmetrical. No cerebellar intra-axial pathology delineated. The fourth ventri rahul and aqueduct are normal. No abnormalities of the optic nerves are identified. No dural or subdura l masses or collections are detected. No evidence of restricted diffusion. There is evidence for generalized symmetrical dilatation of the ventricles and cortical sulci consist ent with parenchymal atrophy. There are bilateral periventricular and subcortical T2 and FLAIR hyperintensities compatible with chr onic white matter ischemic disease. The visualized arterial structures demonstrate normal appearing flow voids. The VII and VIII nerve bu ndles are visualized and are unremarkable in appearance. Mucosal thickening is seen involving bilateral ethmoid and maxillary sinuses compatible with chronic sinusitis. IMPRESSION: 1. Generalized age-appropriate parenchymal atrophy. 2. Bilateral periventricular and subcortical white matter chronic ischemic changes. 3. Chronic ethmoid and maxillary sinusitis. 4. No evidence of acute intracranial pathology. Thank you for your kind referral of this patient.
--- NOTE | 2016-08-01 21:00 | REPUSA ---
CLINICAL HISTORY: Rule out abscess. TECHNIQUE: MRI of the cervical spine was performed utilizing multiple sequences in axial and sagitta l planes without and with IV contrast material. COMMENTS: The visualized osseous elements are intact with no evidence of fracture or dislocation. The marrow s ignals are within normal limits. The cervical cord is of normal uniform signal intensity without gavin dence of focal expansion. There is no evidence for tonsilar herniation. Limited views of the unarmed security guard ior fossa reveal no abnormalities. Post gadolinium sequences reveal no evidence for abnormal enhancement. Straightening of cervical lordosis is compatible with muscle spasm. Grade 1 anterolisthesis of C3 ov er C4 measures 2.5 mm. Grade 1 retrolisthesis of C5 over C6 measures 2 mm. There is moderate loss o f disc space height noted at C5-C6. Evaluation of individual levels presents the following: At C2-C3, there is no disc herniation or bulge present. Canal and foramina are patent. At C3-C4, 1 mm bulge indents the ventral thecal sac. Canal and foramina are patent. At C4-C5, central herniated disc measures 7 x 1.5 mm indent the ventral thecal sac. Canal and forami na are patent. At C5-C6, broad based herniated disc is seen across the disc space measures 20 x 3 mm in contact with the cord. Canal is stenotic. There is moderate bilateral foraminal stenosis. Spondylolisthesis an d uncovertebral joint hypertrophy contribute. At C6-C7, 1 mm bulge indents the ventral thecal sac. Canal and foramina are patent. C7-T1 level is unremarkable. There is no evidence of an abscess or abnormal enhancement. IMPRESSION: 1. At C3-C4, 1 mm bulge indents the ventral thecal sac. Canal and foramina are patent. 2. At C4-C5, central herniated disc measures 7 x 1.5 mm indent the ventral thecal sac. Canal and fo ramina are patent. 3. At C5-C6, broad based herniated disc is seen across the disc space measures 20 x 3 mm in contact with the cord. Canal is stenotic. There is moderate bilateral foraminal stenosis. Spondylolisthesi s and uncovertebral joint hypertrophy contribute. 4. At C6-C7, 1 mm bulge indents the ventral thecal sac. Canal and foramina are patent. 5. Multilevel spondylolisthesis. 6. Straightening of cervical lordosis is compatible with muscle spasm. Thank you for your kind referral of this patient. We appreciate the opportunity to participate in thi s patient's care.
--- NOTE | 2016-08-01 21:20 | REPUSA ---
CLINICAL HISTORY: Rule out abscess. TECHNIQUE: MRI of the thoracic spine was performed utilizing multiple sequences in axial, coronal an d sagittal planes without and with IV contrast material. COMMENTS: The visualized osseous elements are intact and in normal alignment with no evidence of dislocation. The marrow signals are within normal limits. The visualized posterior elements are normal and the th oracic curvature is well maintained. The thoracic cord is of uniform signal intensity without eviden ce of focal expansion. There is no attenuation of disc agent. The discs appear normally hydrated wi thout evidence of desiccation. There is no evidence of herniation or bulge. Advanced degenerative spondylosis is present. There is multilevel desiccation, Schmorl's nodes and M odic change is present. There is evidence of a mild compression fracture deformity involving L1 vertebral body likely chronic . No acute fractures. Note is made of herniated discs at T11-T12 and T12-L1 centrally which in cont act with the cord with canal stenosis. Foramina are patent. Mild bulging is present in mid to lower thoracic levels without canal or foraminal stenosis. There is no evidence of abnormal enhancement a nd no evidence of an abscess. IMPRESSION: 1. There is evidence of a mild compression fracture deformity involving L1 vertebral body likely chr onic. 2. Herniated discs at T11-T12 and T12-L1 centrally which in contact with the cord with canal stenosi s. Foramina are patent. 3. There is no evidence of abnormal enhancement and no evidence of an abscess. Thank you for your kind referral of this patient. We appreciate the opportunity to participate in thi s patient's care.
--- NOTE | 2016-08-01 21:30 | REPUSA ---
CLINICAL HISTORY: Rule out abscess. TECHNIQUE: MRI of the lumbar spine was performed utilizing multiple sequences in axial and sagittal planes without and with IV contrast material. COMMENTS: The visualized osseous elements are intact with no evidence of spondylolisthesis. The marrow signals are within normal limits. The normal lordotic curvature of the lumbar spine is well maintained. Th e conus medullaris and cauda equina are within normal limits. There is mild chronic anterior posterior compression fracture deformity noted involving L1 vertebral body. No acute fractures are present. Multilevel degenerative spondylosis is present. Evaluation of individual levels presents the following: At L5-S1, central herniated disc indents the ventral thecal sac. There is superimposed bulge. Both foramina are narrowed. Canal is mildly stenotic. Hypertrophic facet disease and ligamentum flavum h ypertrophy contribute. Left facet joint effusion is present. At L4-L5, diffuse bulge is seen. There is mild to moderate bilateral foraminal stenosis and mild to moderate central canal stenosis. Hypertrophic facet disease and ligamentum flavum hypertrophy contri bute. Left facet joint effusion is present. At L3-L4, bilobed bulge is seen. Both foramina are narrowed. Canal is patent. Hypertrophic facet d isease is seen. L1-L2 and L2-L3 levels are unremarkable. No evidence of an abscess. No abnormal enhancement is demonstrated. IMPRESSION: 1. Chronic compression fracture involving L1 vertebral body. No acute fractures. 2. No evidence of an abscess. No abnormal enhancement is demonstrated. 3. At L5-S1, central herniated disc indents the ventral thecal sac. There is superimposed bulge. B oth foramina are narrowed. Canal is mildly stenotic. Hypertrophic facet disease and ligamentum flav um hypertrophy contribute. Left facet joint effusion is present. 4. At L4-L5, diffuse bulge is seen. There is mild to moderate bilateral foraminal stenosis and mild to moderate central canal stenosis. Hypertrophic facet disease and ligamentum flavum hypertrophy co ntribute. Left facet joint effusion is present. 5. At L3-L4, bilobed bulge is seen. Both foramina are narrowed. Canal is patent. Hypertrophic fac et disease is seen. Thank you for your kind referral of this patient. We appreciate the opportunity to participate in thi s patient's care.
[2016-08-02] VITALS (7 sets, daily range): BP systolic 112–142; BP diastolic 53–70
[2016-08-02] MEDS: VANCOMYCIN HCL 1,000 MG, VIAL MATE ADAPTER 1 EACH in D5W 250 ML IV SCH ×2 (03:27→21:53)
[2016-08-02] MEDS: MORPHINE 2 MG/ML 1ML SYRINGE IV PRN (04:28)
[2016-08-02] MEDS: PIPERACILLIN/TAZOBACTAM SOD 3.375 GM in D5W MINI-BAG PLUS 50 ML IV SCH ×4 (05:04→20:28)
[2016-08-02 05:56] LABS: BASO % 0.3 % (0.0-1.0); EOS # 0.1 K/mm3 (0.0-0.50); EOS % 0.7 % (0.0-3.0); LARGE UNSTAINED CELL # 0.2 K/mm3 (0.0-0.4); LARGE UNSTAINED CELL % 2.4 % (0.0-4.0); LYMPH # 1.8 K/mm3 (1.5-4.5); LYMPH % 18.9 % (24.0-44.0); MEAN CORPUSCULAR HEMOGLOBIN 30.6 pg (27.0-33.0); MEAN CORPUSCULAR HGB CONC 32.7 g/dl (32.0-36.5); MEAN CORPUSCULAR VOLUME 93.6 fl (80.0-96.0); MONO # 0.5 K/mm3 (0.0-0.8); MONO % 5.3 % (0.0-5.0); NEUTROPHILS % 72.5 % (36.0-66.0); PLATELET COUNT, AUTOMATED 148 k/mm3 (150-450); WHITE BLOOD COUNT 9.7 K/mm3 (4.0-10.0)
[2016-08-02 06:11] LABS: ALBUMIN 2.5 GM/DL (3.2-5.2); ALBUMIN/GLOBULIN RATIO 0.74 (1.00-1.93); ALKALINE PHOSPHATASE 40 U/L (45-117); ALT/SGPT 16 U/L (12-78); ANION GAP 6 MEQ/L (8-16); AST/SGOT 10 U/L (15-37); BILIRUBIN,TOTAL 0.3 MG/DL (0.2-1.0); BLOOD UREA NITROGEN 9 MG/DL (7-18); CALCIUM LEVEL 7.7 MG/DL (8.8-10.2); CARBON DIOXIDE LEVEL 29 MEQ/L (21-32); CHLORIDE LEVEL 106 MEQ/L (98-107); CREATININE FOR GFR 0.78 MG/DL (0.55-1.02); GLOMERULAR FILTRATION RATE > 60.0 (>39); GLUCOSE, FASTING 170 MG/DL (83-110); POTASSIUM SERUM 3.4 MEQ/L (3.5-5.1); SODIUM LEVEL 141 MEQ/L (136-145); TOTAL PROTEIN 5.9 GM/DL (6.4-8.2)
[2016-08-02] MEDS: HEPARIN SOD (PORCINE) 5000 UNITS/ML VIAL SC SCH ×3 (06:31→21:54)
[2016-08-02] MEDS: LEVOTHYROXINE 0.1 MG TAB (100 MCG) PO SCH (06:31)
[2016-08-02] MEDS: HumaLOG INSULIN (NovoLOG) PER UNIT SC SCH ×4 (07:51→20:28)
[2016-08-02] MEDS ORDERED: POTASSIUM CHLORIDE 10 MEQ SR TABLET PO ONE (09:00)
[2016-08-02] MEDS ORDERED: PNEUMOCOCCAL VACCINE 0.5ML SYRINGE(90732) PNEUMOVAX 23 IM SCH (09:00)
[2016-08-02] MEDS: RAMIPRIL 5 MG CAP PO SCH (09:43)
[2016-08-02] MEDS: predniSONE 10 MG TAB PO SCH (09:43)
[2016-08-02] MEDS: PERCOCET 5MG/325MG TAB PO PRN ×2 (12:15→18:43)
[2016-08-02] MEDS: CYCLOBENZAPRINE 5MG TABLET PO PRN ×2 (12:15→18:43)
--- NOTE | 2016-08-02 15:11 | REP ---
ABDOMINAL WALL ULTRASOUND: Real-time sonographic evaluation of the abdominal wall performed in the region of redness. There is no underlying fluid collection. No other underlying soft tissue abnormality is seen. Signed by James Funez MD 08/02/2016 04:55 P
--- NOTE | 2016-08-02 16:30 | IPNPDOC ---
Text Note Date of Service The patient was seen on 08/02/16 at 16:19. NOTE Subjective: Pt states she still has lumbar pain, however it is improved. She also notes that she's been having some purulent drainage from the prior hysterectomy site. Objective: Vitals: (see below) General: No acute distress, laying comfortably in bed. HEENT: Moist mucous membranes. Neck: No JVD or lymphadenopathy Cardiac: Tachycardic. regular rhythm. No murmurs Pulm: Clear to auscultation b/l. No wheezing, rhonchi Abd: Mild RLQ tenderness and erythema alongside a horizontal scar that appears to have purulent drainage. This was the region of her prior hysterectomy. No rebound/guarding/rigidity. ND + BS. Obese Ext: No edema or cyanosis. Neuro: Strength 5/5 LUE/LLE. 3/5 RLE/RUE. Tremor in b/l upper extremities. CN 2-12 intact. Negative pronator drift. Negative Babinki. DTR 2+ throughout. Labs (see below) Images: Renal u/s 07/31/16 IMPRESSION: Negative renal ultrasound. CT abd/pelvis 07/31/16 The liver is of uniform attenuation without mass or defect. There is no intra or extrahepatic biliary ductal dilatation. The spleen is normal. The gallbladder is within normal limits. The pancreas is atrophic and partially fatty-replaced.. There is no evidence of adrenal mass. Both kidneys demonstrate prompt and equal nephrograms. The kidneys are normal in size, shape and configuration. There is no evidence of renal or ureteral mass. No renal or ureteral calculi are identified. There is no hydroureter or hydronephrosis. No evidence for appendicitis. There is no bowel wall thickening. No evidence for small or large bowel obstruction. There is no evidence of abdominal ascites or lymphadenopathy. There is no evidence of intrinsic or extrinsic bladder mass. There is no pelvic ascites or lymphadenopathy. Status post complete hysterectomy. Images of the lung bases show no evidence of pleural or parenchymal mass. There are no pleural effusions. The bony structures are free of lytic or blastic lesions. Multilevel degenerative changes are seen involving the thoracolumbar spine. Scattered calcifications are seen involving the aorta and major branches compatible with atherosclerosis. IMPRESSION: No evidence of acute abdominal or pelvic pathology. CXR 07/31/16 IMPRESSION: No infiltrate seen. Abd wall u/s 08/02/16 ABDOMINAL WALL ULTRASOUND: Real-time sonographic evaluation of the abdominal wall performed in the region of redness. There is no underlying fluid collection. No other underlying soft tissue abnormality is seen. MRI Brain 08/01/16 FINDINGS: The sella and parasellar regions are unremarkable in appearance. The corpus callosum and cerebellar tonsils are of normal configuration and position. There are no intra or extra-axial collections. There is no mass effect or midline shift. There is no evidence of hematoma formation. There is no hydrocephalus. The brain stem shows no mass effects, infarcts or hemorrhage. There are no cerebellopontine tumors. The acoustic nerves are symmetrical. No cerebellar intra-axial pathology delineated. The fourth ventricle and aqueduct are normal. No abnormalities of the optic nerves are identified. No dural or subdural masses or collections are detected. No evidence of restricted diffusion. There is evidence for generalized symmetrical dilatation of the ventricles and cortical sulci consistent with parenchymal atrophy. There are bilateral periventricular and subcortical T2 and FLAIR hyperintensities compatible with chronic white matter ischemic disease. The visualized arterial structures demonstrate normal appearing flow voids. The VII and VIII nerve bundles are visualized and are unremarkable in appearance. Mucosal thickening is seen involving bilateral ethmoid and maxillary sinuses compatible with chronic sinusitis. IMPRESSION: 1. Generalized age-appropriate parenchymal atrophy. 2. Bilateral periventricular and subcortical white matter chronic ischemic changes. 3. Chronic ethmoid and maxillary sinusitis. 4. No evidence of acute intracranial pathology. MRI Cervical spine 08/01/16 IMPRESSION: 1. At C3-C4, 1 mm bulge indents the ventral thecal sac. Canal and foramina are patent. 2. At C4-C5, central herniated disc measures 7 x 1.5 mm indent the ventral thecal sac. Canal and foramina are patent. 3. At C5-C6, broad based herniated disc is seen across the disc space measures 20 x 3 mm in contact with the cord. Canal is stenotic. There is moderate bilateral foraminal stenosis. Spondylolisthesis and uncovertebral joint hypertrophy contribute. 4. At C6-C7, 1 mm bulge indents the ventral thecal sac. Canal and foramina are patent. 5. Multilevel spondylolisthesis. 6. Straightening of cervical lordosis is compatible with muscle spasm. MRI Lumbar spine 08/01/16 IMPRESSION: 1. Chronic compression fracture involving L1 vertebral body. No acute fractures. 2. No evidence of an abscess. No abnormal enhancement is demonstrated. 3. At L5-S1, central herniated disc indents the ventral thecal sac. There is superimposed bulge. Both foramina are narrowed. Canal is mildly stenotic. Hypertrophic facet disease and ligamentum flavum hypertrophy contribute. Left facet joint effusion is present. 4. At L4-L5, diffuse bulge is seen. There is mild to moderate bilateral foraminal stenosis and mild to moderate central canal stenosis. Hypertrophic facet disease and ligamentum flavum hypertrophy contribute. Left facet joint effusion is present. 5. At L3-L4, bilobed bulge is seen. Both foramina are narrowed. Canal is patent. Hypertrophic facet disease is seen. MRI Thoracic spine 08/01/16 IMPRESSION: 1. There is evidence of a mild compression fracture deformity involving L1 vertebral body likely chronic. 2. Herniated discs at T11-T12 and T12-L1 centrally which in contact with the cord with canal stenosis. Foramina are patent. 3. There is no evidence of abnormal enhancement and no evidence of an abscess. Assessment/Plan 1. Sepsis 2/2 staph aureus. Final cultures are pending. MRIs of the cervical/ lumbar/thoracic spine negative for abscess. Echocardiogram pending. I did speak with Dr. Arnold regarding her CAT scan of the abdomen and pelvis however he does not notes an abscess adjacent to the hysterectomy scar. He does note that there is a possible carbuncle versus cyst on the left kidney which will need a repeat CAT scan once the patient's bacteremia has resolved. I also spoke with Dr. Segura who also believes that this may be a cyst however a repeat CAT scan would be warranted to ensure resolution. 2. History of CVA with baseline weakness on the right side. MRI of the brain negative for acute cva. In the meantime patient is on broad-spectrum antibiotics. IV fluids. 3. Diabetes mellitus - continue to hold metformin. Sliding scale insulin 4. Hypothyroidism- continue Synthroid 5. Hypertension- continue ramipril 6. History of Recurrent nephrolithiasis 7. 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 DVT prophy: Heparin subcutaneous VS,Fishbone, I+O VS, Fishbone, I+O Laboratory Tests 08/02/16 05:40 Calcium Level 7.7 L, Aspartate Amino Transf (AST/SGOT) 10 L, Alanine Aminotransferase (ALT/SGPT) 16, Alkaline Phosphatase 40 L, Total Bilirubin 0.3, Total Protein 5.9 L, Albumin 2.5 L, Red Blood Count 3.14 L, Mean Corpuscular Volume 93.6, Mean Corpuscular Hemoglobin 30.6, Mean Corpuscular Hemoglobin Concent 32.7, Red Cell Distribution Width 13.0, Neutrophils (%) (Auto) 72.5 H, Lymphocytes (%) (Auto) 18.9 L, Monocytes (%) (Auto) 5.3 H, Eosinophils (%) (Auto ) 0.7, Basophils (%) (Auto) 0.3, Neutrophils # (Auto) 7.0, Lymphocytes # (Auto) 1.8, Monocytes # (Auto) 0.5, Eosinophils # (Auto) 0.1, Basophils # (Auto) 0.0 Vital Signs Date Time Temp Pulse Resp B/P Pulse Ox O2 Delivery O2 Flow Rate FiO2 08/02/16 13:00 18 Room Air 08/02/16 09:43 126/60 08/02/16 08:00 98.1 109 100 2.0 I&O- Last 24 Hours up to 6 AM 08/02/16 05:59 Intake Total 3776 ml Output Total 2625 ml Balance 1151 ml ARABELLA PULLIAM MD Aug 02, 2016 16:30
--- NOTE | 2016-08-02 21:10 | ECHO ---
DATE OF PROCEDURE: 08/02/2016 REFERRING PHYSICIAN: Dr. Russell Maria PATIENT LOCATION: Room 3230 REASON FOR ECHOCARDIOGRAM: Bacteremia. 2D MEASUREMENTS: IVS: 0.98 cm LV: 4.0 cm LVPW: 1.0 cm LA: 3.7 cm Aorta: 2.9 cm DOPPLER MEASUREMENTS: Peak velocity across the aortic valve: 1.7 m/s Peak velocity across the LVOT: 0.97 m/s Mitral E: 0.88, Mitral A: 0.83, with a ratio of 1.1 Maximum tricuspid valve velocity: 2.5 m/s 2D COMMENTS: 1. Normal left ventricular size, wall thickness and normal global left ventricular systolic function. The estimated global left ventricular systolic ejection fraction is 65 to 70%. 2. Normal left atrium. Normal right atrium and right ventricle. 3. The atrial septum appeared to be normal without evidence of defect or shunt. 4. Normal aortic root. 5. No pericardial effusion seen. 6. Minimally calcified aortic valve. Leaflet excursion appeared to be normal. Mildly calcified mitral annulus with normal anterior mitral valve leaflet motion. Normal tricuspid valve and pulmonic valve. The proximal pulmonary artery branches were not well visualized. 7. The inferior vena cava appeared to be mildly enlarged in limited views. DOPPLER: It detects trace mitral regurgitation and trace to mild tricuspid regurgitation. The calculated pulmonary artery systolic pressure varies between 30 to 40 mmHg. Abnormal relaxation pattern was noted across the mitral valve annulus consistent with a pseudo-normal pattern, left ventricular end-diastolic pressure might be elevated. IMPRESSION: 1. Normal global left ventricular systolic function. There are some features of left ventricular diastolic dysfunction that might be related to artifact. 2. Aortic valve sclerosis with trivial aortic stenosis, but no aortic regurgitation. 2. Mitral annulus calcification with trace mitral regurgitation. 3. Trace to mild tricuspid regurgitation with mild pulmonary hypertension. 4. No vegetations was noted in this transthoracic echocardiogram. If any concern , consider a transesophageal echocardiogram. MTDD
--- NOTE | 2016-08-03 01:43 | EDDOCDS ---
Nurse's Notes [facility] Name: Ynes Pollard Age: 75 yrs Sex: Female : 1940 Arrival Date: 07/31/2016 Time: 11:21 Bed 17 Private MD: Jakub Burgess Diagnosis: Acute tubulo-interstitial nephritis Presentation: 07/31 11:24 Red Flag criteria, patient assessed and taken directly to a bed. dy 11:28 Presenting complaint: Patient states: last evening she started with tremors and pain in mk4 lower back excruciating , buttock and down legs which has been well controlled at Pain clinic with injections , was sent here for eval. Adult Sepsis Screening: The patient does not have new or worsening altered mentation. Patient's respiratory rate is less than 22. Systolic blood pressure is greater than 100. Patient has a qSOFA score of 0- Negative Sepsis Screen. Suicide/Homicide risk assessment- the patient denies having any suicidal and/or homicidal ideations and does not present with any other emotional, behavioral or mental health complaints. Status: Patient is not a resident services manager or dependent. Transition of care: patient was not received from another setting of care. 11:28 Acuity: PEDRO PABLO Level 3 mk4 11:28 Method Of Arrival: Wheelchair mk4 Triage Assessment: 11:34 General: Appears distressed, ill. Pain: Location: left lower back and right lower back. mk4 Historical: - Allergies: SULFA (SULFONAMIDES); - Home Meds: 1. metformin 500 mg Oral tab 2 times per day 2. Ramipril Oral once daily 3. prednisone 10 mg Oral tab once daily 4. levothyroxine 100 mcg Oral cap 1 cap once daily 5. 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 - Social history: Smoking status: Patient states was never smoker of tobacco. No barriers to communication noted, The patient speaks fluent Uzbek. - : The pt / caregiver states he / she is not on anticoagulants. Home medication list is obtained from the patient, family members. - Hospitalizations: : No recent hospitalization is reported. - Exposure Risk Screening:: None identified. - Immunization history:: All immunizations up-to-date. - Family history: Not pertinent. - Social history:: the patient is a non-smoker, the patient does not drink alcohol. Screenin:21 Screening information is obtained from the patient. Fall risk: At risk due to age. nr1 Assistance ADL's: requires no assistance with activities of daily living. Abuse/DV Screen: The patient / caregiver reports he/she is: not in a situation that causes fear, pain or injury. Nutritional screening: No deficits noted. Advance Directives: There is no active DNR order. home support is adequate. Assessment: 12:17 General: Appears distressed, uncomfortable, Behavior is crying, restless. Pain: nr1 Location: right lower quadrant Pain currently is 10 out of 10 on a pain scale. Respiratory: Airway is patent Respiratory effort is even, unlabored, Respiratory pattern is regular, symmetrical. GI: Abdomen is obese, Abd is soft Abd is tender to palpation. Derm: Skin is intact, is healthy with good turgor, Skin is pink, warm & dry. 13:30 General: Patient restless in bed with right arm tremor. Per patient "this is worse pain nr1 I have ever been in." MD aware. New medication ordered. requesting to use BSC. One person assist. UA collected. Tolerated well. Back to bed without incidence. Will continue to monitor patient. . 14:43 Reassessment: Patient states symptoms have not improved. nr1 15:52 Reassessment: Patient asleep in bed resting. Respirations even and unlabored. No signs nr1 or symptoms of distress noted. Will continue to monitor patient. . 16:21 General: Appears to be sleeping. Behavior is. Respiratory: Airway is patent Respiratory nr1 effort is even, unlabored, Respiratory pattern is regular, symmetrical, Breath sounds are clear bilaterally. Patient SpO2 86% RA. Patient sleeping. 2L O2 applied. Will continue to monitor patient. 17:32 General: Appears comfortable, Behavior is pleasant. Pain: Location: lumbar area and nr1 right upper quadrant and right lower quadrant Pain currently is 7 out of 10 on a pain scale. Neurological: Level of Consciousness is alert, obeys commands, Oriented to person, place, time, Cardiovascular: Rhythm is sinus tachycardia No ectopy. Chest pain is denied. Respiratory: Airway is patent Respiratory effort is even, unlabored, Respiratory pattern is regular, symmetrical. GI: Abdomen is obese, Abd is soft Abd is tender to palpation. Derm: Skin is intact, is healthy with good turgor, Skin is pink, warm & dry. 18:33 General: Appears distressed, uncomfortable, Behavior is crying, restless. Pain: nr1 Location: abdomen Pain currently is 10 out of 10 on a pain scale. back, Quality of pain is described as shooting, stabbing. Neurological: Level of Consciousness is awake, alert, obeys commands, Oriented to person, place, time, Cardiovascular: Rhythm is sinus tachycardia No ectopy. Chest pain. 18:33 Respiratory: Airway is patent Respiratory effort is even, unlabored, Respiratory nr1 pattern is regular, symmetrical, Breath sounds are clear bilaterally. GI: Abdomen is obese, Bowel sounds present X 4 quads. Abd is soft Abd is tender to palpation Reports nausea, Denies. Derm: Skin is intact, is healthy with good turgor, Skin is pink, warm & dry. 20:40 General: Patient crying and rocking back and for the with tremors noted. Patient states cf2 increased pain to back and abdomen. States normally gets epidural pain shots for increased pain and has not received them in approx 6 months. Patient was medicated per md admission orders with Morphine 2mg IVP and Percocet 5/325 1 tab. . 22:52 General: Patient calmer at present time. Tremors have decreased. Patient able to talk cf2 better. Will continue to monitor. Awaiting arrival of MRI . 22:55 General: Patient with no relief in symptoms. Dr Peraza was paged. Per Dr Peraza, he will cf2 assess patient. No new orders were received. 22:56 General: Dr Peraza again called as patient continues to cry and rock back and for the cf2 with tremors. Orders received for Morphine Sulfate 5mg IVP. Patient medicated per MD orders. . 08/01 00:15 General: Patient with pain increasing, patient with tremors again and crying out. cf2 Patient medicated with Morphine 2 mg IVP and Percocet 5/325 1 tab po per admission orders. . 00:15 Adult Sepsis Screening: The patient does not have new or worsening altered mentation. cf2 Patient's respiratory rate is less than 22. Systolic blood pressure is greater than 100. Patient has a qSOFA score of 0- Negative Sepsis Screen. Vital Signs: 07/31 11:23 BP 175 / 102; Pulse 132; Resp 20 S; Temp 101.6(O); Pulse Ox 94% on R/A; Weight 72.57 kg dd6 (R); Height 5 ft. 2 in. (157.48 cm) (R); 15:04 BP 146 / 65 (auto/); nr1 15:57 Resp 22; Pulse Ox 90% on R/A; Pain 7/10; nr1 16:26 BP 152 / 70 (auto/); nr1 16:26 Resp 16; Pulse Ox 97% ; nr1 17:21 BP 171 / 73 (auto/); nr1 17:21 Pulse 101; Resp 20; Temp 98.4(O); Pulse Ox 97% ; nr1 18:19 BP 164 / 74; Pulse 115; Resp 16; Temp 98.4(O); Pulse Ox 95% on R/A; Pain 10/10; nr1 20:45 Pulse Ox 94% ; cf2 20:45 BP 142 / 88; Pulse 92; Resp 20; Temp 98.0; Pain 8/10; cf2 21:04 Pulse Ox 95% ; cf2 22:01 Pulse Ox 95% ; cf2 22:18 Pulse Ox 94% ; cf2 22:29 Pulse Ox 92% ; cf2 22:40 Pulse Ox 92% ; cf2 22:49 Pulse Ox 94% ; cf2 22:59 Pulse Ox 94% ; cf2 23:08 Pulse Ox 95% ; cf2 23:19 Pulse Ox 95% ; cf2 23:28 Pulse Ox 96% ; cf2 23:38 Pulse Ox 96% ; cf2 23:45 Pulse Ox 96% ; cf2 23:53 Pulse Ox 95% ; cf2 23:58 Pulse Ox 95% ; cf2 11:23 Body Mass Index 29.26 (72.57 kg, 157.48 cm) dd6 Vitals: 11:23 Log In Time: July 31, 2016 at 11:21. RN notified that patient meets Red Flag dd6 criteria. ED Course: 11: Patient visited by Jorge Reza PCA. dd6 11:23 Jakub Burgess is Private Physician. dd6 11:23 Patient moved to Waiting dd6 11: Patient moved to Pre RCE dd6 11:31 Tierra Pitt RN is Primary Nurse. dy 11:31 Triage Initiated mk4 11:31 Patient moved to 17 dy 11:36 Andrea Cali MD is Attending Physician. pc 11:50 Patient visited by Andrea Cali MD. pc 12:18 Inserted saline lock: 20 gauge in left forearm and blood collected. The patient mlb1 tolerated the procedure well. 12:22 DIFFERENTIAL NO CHARGE Sent. pc 12:52 Patient visited by Andrea Cali MD. pc 12:54 Urine Culture Sent. nr1 12:54 Urinalysis Sent. nr1 13:59 [facility] Payment Agreement was scanned into [employer] and attached to record. jls1 14:10 Patient visited by Andrea Cali MD. pc 14:19 Patient moved to Ultrasound am10 14:31 Patient moved to 17 am10 14:46 Patient visited by Tierra Pitt RN. nr1 15:17 Ultrasound, Renal Returned. EDMS 15:54 Patient visited by Tierra Pitt RN. nr1 16:28 Patient visited by Tierra Pitt RN. nr1 16:41 Ultrasound, Renal Returned. EDMS 17:21 The patient / caregiver is instructed regarding the plan of care and ED course. Patient nr1 has correct armband on for positive identification. Placed in gown. Bed in low position. Call light in reach. Side rails up X 1. Pulse ox on. NIBP on. 17:25 Abdomen, Flat\\E\\Upright,PA Chest Returned. EDMS 17:35 Patient visited by Tierra Pitt RN. nr1 18:37 Patient visited by Andrea Cali MD. pc 19:20 Primary Nurse role handed off by Tierra Pitt RN cf2 19:20 Adele Perales,SHERRI is Primary Nurse. cf2 19:20 Patient visited by Adele Perales RN. cf2 19:28 Joselito Peraza MD is Hospitalizing Provider. mm11 19:42 CT ABD & PELVIS: IV and Oral Contrast Returned. EDMS 19:54 Patient visited by Adele Perales,SHERRI. cf2 19:55 Patient visited by Adele Perales,SHERRI. cf2 20:09 Patient visited by Adele Perales RN. cf2 20:20 Patient visited by Adele Perales RN. cf2 20:30 Patient visited by Adele Perales RN. cf2 20:34 Patient visited by Adele Perales RN. cf2 20:45 No procedures done that require assistance. cf2 21:29 Patient visited by Adele Perales RN. cf2 22:28 Written Provider Order was scanned into [employer] and attached to record. tmm1 22:50 Patient visited by Adele Perales RN. cf2 22:55 Patient visited by Adele Perales RN. cf2 23:55 Patient visited by Adele Perales RN. cf2 08/01 00:12 Patient visited by Adele Perales RN. cf2 Administered Medications: 07/31 12:54 Drug: Acetaminophen 650 mg [acetaminophen 325 mg tablet (2 tabs)] Route: PO; nr1 12:54 Drug: morphine 4 mg [morphine 4 mg/mL intravenous cartridge (1 mL)] Route: IVP; Site: nr1 left antecubital; 12:54 Drug: Ondansetron 4 mg [ondansetron HCl 2 mg/mL intravenous solution (2 mL)] Route: nr1 IVP; Site: left antecubital; 13:51 Drug: morphine 4 mg [morphine 4 mg/mL intravenous cartridge (1 mL)] Route: IVP; Site: nr1 left antecubital; 15:09 Drug: morphine 4 mg [morphine 4 mg/mL intravenous cartridge (1 mL)] Route: IVP; Site: nr1 left forearm; 18:32 Drug: morphine 4 mg [morphine 4 mg/mL intravenous cartridge (1 mL)] Route: IVP; Site: nr1 left antecubital; 19:27 Drug: Ciprofloxacin 400 mg [ciprofloxacin 400 mg/200 mL in 5 % dextrose intravenous cf2 piggyback] Route: IVPB; Rate: 200 mL/hr; Infused Over: 60 mins; Site: left antecubital; 19:54 Drug: morphine 4 mg [morphine 4 mg/mL intravenous cartridge (1 mL)] Route: IVP; Site: cf2 left antecubital; 19:54 Drug: NS 0.9% 1000 ml [sodium chloride 0.9 % intravenous solution] Route: IV; Rate: 100 cf2 mL/hr; Site: left antecubital; 20:40 Drug: oxyCODONE-acetaminophen 1 tabs [oxycodone-acetaminophen 5 mg-325 mg tablet (1 cf2 tabs)] Route: PO; 21:33 Follow up: Response: Pain is resolved cf2 20:40 Drug: morphine 2 mg [morphine 2 mg/mL intravenous cartridge (1 mL)] Route: IVP; Site: cf2 left antecubital; 21:33 Follow up: Response: Pain is increased cf2 22:35 Drug: morphine 5 mg [morphine 4 mg/mL intravenous cartridge (1.25 mL)] Route: IVP; cf2 Site: left antecubital; 08/01 00:13 Drug: morphine 2 mg Route: IVP; Site: left antecubital; cf2 00:14 Follow up: Response: Pain is decreased cf2 00:14 Drug: oxyCODONE-acetaminophen 1 tabs [oxycodone-acetaminophen 5 mg-325 mg tablet (1 cf2 tabs)] Route: PO; 00:14 Follow up: Response: Pain is decreased cf2 Order Results: Lab Order: CBC with Diff; SPEC'M 07/31/16 11:58 Test: WHITE BLOOD COUNT; Value: 13.1; Range: 4.0-10.0; Abnormal: Above high normal; Units: K/mm3; Status: F Test: RED BLOOD COUNT; Value: 4.16; Range: 4.00-5.40; Units: M/mm3; Status: F Test: HEMOGLOBIN; Value: 12.9; Range: 12.0-16.0; Units: g/dl; Status: F Test: HEMATOCRIT; Value: 39.0; Range: 36.0-47.0; Units: %; Status: F Test: MEAN CORPUSCULAR VOLUME; Value: 93.8; Range: 80.0-96.0; Units: fl; Status: F Test: MEAN CORPUSCULAR HEMOGLOBIN; Value: 31.1; Range: 27.0-33.0; Units: pg; Status: F Test: MEAN CORPUSCULAR HGB CONC; Value: 33.2; Range: 32.0-36.5; Units: g/dl; Status: F Test: RED CELL DISTRIBUTION WIDTH; Value: 13.3; Range: 11.5-14.5; Units: %; Status: F Test: PLATELET COUNT, AUTOMATED; Value: 213; Range: 150-450; Units: k/mm3; Status: F Test: NEUTROPHILS; Value: 68; Range: 35-75; Units: %; Status: F Test: LYMPHOCYTES; Value: 28; Range: 16-52; Units: %; Status: F Test: MONOCYTES; Value: 4; Range: 0-8; Units: %; Status: F Test: RBC MORPHOLOGY; Value: NORMAL; Status: F Lab Order: MED Profile; SPEC'M 07/31/16 11:58 Test: GLUCOSE, FASTING; Value: 155; Range: 83-110; Abnormal: Above high normal; Units: MG/DL; Status: F Test: BLOOD UREA NITROGEN; Value: 14; Range: 7-18; Units: MG/DL; Status: F Test: CREATININE FOR GFR; Value: 0.88; Range: 0.55-1.02; Units: MG/DL; Status: F Test: GLOMERULAR FILTRATION RATE; Value: > 60.0; Range: >39; Status: F Test: SODIUM LEVEL; Value: 140; Range: 136-145; Units: MEQ/L; Status: F Test: POTASSIUM SERUM; Value: 3.8; Range: 3.5-5.1; Units: MEQ/L; Status: F Test: CHLORIDE LEVEL; Value: 105; Range: 98-107; Units: MEQ/L; Status: F Test: CARBON DIOXIDE LEVEL; Value: 25; Range: 21-32; Units: MEQ/L; Status: F Test: ANION GAP; Value: 10; Range: 8-16; Units: MEQ/L; Status: F Test: CALCIUM LEVEL; Value: 9.1; Range: 8.8-10.2; Units: MG/DL; Status: F Test Note: ; Units are mL/min/1.73 m2 Chronic Kidney Disease Staging per NKF: Stage I & II GFR >=60 Normal to Mildly Decreased Stage III GFR 30-59 Moderately Decreased Stage IV GFR 15-29 Severely Decreased Stage V GFR <15 Very Little GFR Left ESRD GFR <15 on COUPLER Lab Order: Lactic Acid (Funez tube on ice); SPEC'M 07/31/16 11:58 Test: LACTIC ACID LEVEL, LACTATE; Value: 1.9; Range: 0.4-2.0; Units: MMOL/L; Status: F Lab Order: C Reactive Protein; [facility] 07/31/16 11:58 Test: C REACTIVE PROTEIN QUANTITATIV; Value: 6.76; Range: 0.00-0.30; Abnormal: Above high normal; Units: MG/DL; Status: F Lab Order: PLATELET ESTIMATE; [facility] 07/31/16 11:58 Test: PLATELET ESTIMATE; Value: NORMAL; Range: NORMAL; Status: F Lab Order: Urinalysis; [facility] 07/31/16 12:41 Test: APPEARANCE, URINE; Value: HAZY; Range: CLEAR; Status: F Test: COLOR, URINE; Value: YELLOW; Range: YELLOW; Status: F Test: PH,URINE; Value: 5.0; Range: 5.0-9.0; Units: UNITS; Status: F Test: SPECIFIC GRAVITY URINE AUTO; Value: 1.019; Range: 1.002-1.035; Status: F Test: PROTEIN, URINE AUTO; Value: 1+; Range: NEGATIVE; Abnormal: Above high normal; Units: mg/dL; Status: F Test: GLUCOSE, URINE (UA) AUTO; Value: 1+; Range: NEGATIVE; Abnormal: Above high normal; Units: mg/dL; Status: F Test: KETONE, URINE AUTO; Value: NEGATIVE; Range: NEGATIVE; Units: mg/dL; Status: F Test: UROBILINOGEN, URINE AUTO; Value: 0.2; Range: 0.0-2.0; Units: mg/dL; Status: F Test: BILIRUBIN, URINE AUTO; Value: NEGATIVE; Range: NEGATIVE; Status: F Test: NITRITE, URINE AUTO; Value: NEGATIVE; Range: NEGATIVE; Status: F Test: LEUKOCYTE ESTERASE, URINE AUTO; Value: 3+; Range: NEGATIVE; Abnormal: Above high normal; Status: F Test: BLOOD, URINE BLOOD; Value: 2+; Range: NEGATIVE; Abnormal: Above high normal; Status: F Test: WBC, URINE AUTO; Value: 141; Range: 0-3; Abnormal: Above high normal; Units: /HPF; Status: F Test: RBC, URINE AUTO; Value: 27; Range: 0-3; Abnormal: Above high normal; Units: /HPF; Status: F Test: BACTERIA, URINE AUTO; Value: 2+; Range: NEGATIVE; Abnormal: Above high normal; Status: F Test: SQUAMOUS EPITHELIAL CELL UR AU; Value: 1; Range: 0-6; Units: /HPF; Status: F Test: MUCUS, URINE; Value: SMALL; Range: NEGATIVE; Status: F Test: HYALINE CAST, URINE AUTO; Value: 0; Range: 0-1; Units: /LPF; Status: F Radiology Order: Ultrasound, Renal Test: Ultrasound, Renal REASON FOR EXAMINATION: ?right hydronephrosis; RENAL AND BLADDER ULTRASOUND:; ; Real-time sonographic evaluation of the kidneys performed and demonstrates both; kidneys to be normal in size and echotexture, right kidney measuring 11.0 x 4.6 x; 3.8 cm and left kidney 12.6 x 5.6 x 5.0 cm. There is no hydronephrosis. No renal; stone is seen. Urinary bladder is mildly distended with no gross abnormality.; ; IMPRESSION:; ; Negative renal ultrasound.; ; ; Signed by; James Funez MD 07/31/2016 04:13 P; Radiology Order: Abdomen, Flat\\E\\Upright,PA Chest Test: Abdomen, Flat\\E\\Upright,PA Chest REASON FOR EXAMINATION: Abdomen Pain; Abdominal series: Three views:; ; History: Abdominal pain.; ; Comparison chest x-ray is from 03/22/2014.; ; Findings: Upright chest radiograph shows no evidence of infiltrate or free; subdiaphragmatic air. Heart is not enlarged. The aorta is calcific. The; pleural angles are sharp.; ; Supine erect views of the abdomen demonstrate air and stool in a nondistended; colon. No evidence of obstruction is seen. Phleboliths are noted in the pelvis.; No mass or organomegaly is seen.; ; Impression:; Negative abdominal series.; ; ; ; ; ; Unreviewed; Radiology Order: CT ABD & PELVIS: IV and Oral Contrast Test: CT ABD & PELVIS: IV and Oral Contrast REASON FOR EXAMINATION: Diverticulitis; ; CLINICAL HISTORY: Abdominal pain.; TECHNIQUE: Multiple axial, sagittal and coronal CT images were obtained through the abdomen and pelvi; s after administration of oral and intravenous contrast material.; COMMENTS:; The liver is of uniform attenuation without mass or defect. There is no intra or extrahepatic biliary; ductal dilatation. The spleen is normal. The gallbladder is within normal limits. The pancreas is at; rophic and partially fatty-replaced.. There is no evidence of adrenal mass.; Both kidneys demonstrate prompt and equal nephrograms. The kidneys are normal in size, shape and conf; iguration. There is no evidence of renal or ureteral mass. No renal or ureteral calculi are identifie; d. There is no hydroureter or hydronephrosis.; No evidence for appendicitis. There is no bowel wall thickening. No evidence for small or large yevgeniy; l obstruction. There is no evidence of abdominal ascites or lymphadenopathy.; There is no evidence of intrinsic or extrinsic bladder mass. There is no pelvic ascites or lymphadeno; dar. Status post complete hysterectomy.; Images of the lung bases show no evidence of pleural or parenchymal mass. There are no pleural effusi; ons.; The bony structures are free of lytic or blastic lesions. Multilevel degenerative changes are seen in; volving the thoracolumbar spine. Scattered calcifications are seen involving the aorta and major bran; ches compatible with atherosclerosis.; IMPRESSION:; No evidence of acute abdominal or pelvic pathology.; Thank you for your kind referral of this patient.; ; Outcome: 07/31 19:29 Decision to Hospitalize by Provider. mm11 20:45 Discharge Assessment: Patient awake, alert and oriented x 3. No cognitive and/or cf2 functional deficits noted. Patient verbalized understanding of disposition instructions. Patient awake and alert. patient administered narcotics - yes. The following High Risk Discharge criteria are identified: None. Admitted to Floor via stretcher. Condition: unchanged. CT Study completed. Property :Personal belongings accompany Pt. 08/01 00:42 Patient left the ED. cf2 Signatures: Dispatcher [employer] EDMS Andrea Cali MD MD pc Youngs, David RN Luis Finley RN RN mlb1 Tony Pinzon DO DO mm11 Shital Peoples am10 Jorge Reza, JR. JAVA DEVELOPER JR. JAVA DEVELOPER dd6 Diana Hennessy, JR. JAVA DEVELOPER JR. JAVA DEVELOPER tmm1 Yeny An RN RN mk4 Tierra Pitt,RN RN nr1 Phyllis Sheehan jls1 Familetti-Manuel,Adele,RN RN cf2 Chart Complete MTDD
--- NOTE | 2016-08-03 01:43 | EDDOCDS ---
Physician Documentation [facility] Name: Ynes Pollard Age: 75 yrs Sex: Female : 1940 Arrival Date: 07/31/2016 Time: 11:21 Bed 17 Private MD: Jakub Burgess Disposition: 07/31 19:22 Critical Care: Critical care not applicable. pc Disposition: 07/31/16 19:29 Hospitalization ordered by Joselito Peraza for Inpatient Admission. 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 - Bed requested for 5 Vizcarra. - Status is Inpatient Admission. cf2 - Condition is Stable. - Problem is new. - Symptoms have improved. HPI: 12:24 This 75 yrs old Female presents to ER via Wheelchair with complaints of pc Abdominal Pain. 12:24 The history is obtained from the patient. The patient presents with abdominal pain, pc right lower quadrant. 12:29 The symptoms began gradually 17 hr. ago, and became worse this morning. Symptoms are pc ongoing and are worsening. She developed right sided abdominal pain last night, without any nausea, vomiting or bowel changes. She developed chills throughout the night, which has caused her chronic low back pain to flare up. She was seen at her [facility] today and was sent here for evaluation. She is one week s/p epidural injection by Dr. Moreno, with no post-procedure complications and with improved back pain. At its worst, the symptoms were a 10 out of 10. In the emergency department, the symptoms are a 10 out of 10. The pain is described as "pain". The is primarily located right lower quadrant. It does not radiate. The pain was associated with fever, chills, loss of appetite. The symptoms are aggravated by movement, are alleviated by nothing. The patient has not experienced similar symptoms in the past. Historical: - Allergies: SULFA (SULFONAMIDES); - Home Meds: 1. metformin 500 mg Oral tab 2 times per day 2. Ramipril Oral once daily 3. prednisone 10 mg Oral tab once daily 4. levothyroxine 100 mcg Oral cap 1 cap once daily 5. 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 - Social history: Smoking status: Patient states was never smoker of tobacco. No barriers to communication noted, The patient speaks fluent Hungarian. - : The pt / caregiver states he / she is not on anticoagulants. Home medication list is obtained from the patient, family members. - Hospitalizations: : No recent hospitalization is reported. - Exposure Risk Screening:: None identified. - Immunization history:: All immunizations up-to-date. - Family history: Not pertinent. - Social history:: the patient is a non-smoker, the patient does not drink alcohol. ROS: 12:29 All systems are negative except if listed. The constitutional, cardiovascular, pc respiratory and neurological components are also addressed in the HPI. Exam: 12:29 General Appearance: alert, moderate distress, anxious. pc 12:29 ENT: ear, nose and throat normal, pharynx normal. 12:29 Neck: The exam reveals no acute abnormalities. ROM is normal and painless. No nuchal rigidity is noted.. 12:29 Respiratory: no respiratory distress, normal breath sounds. 12:29 Cardiovascular: regular pulse rate, regular heart rhythm, normal heart sounds, equal and full pulses bilaterally. 12:29 Abdomen: soft, no organomegaly, normal bowel sounds, moderate tenderness in the right upper quadrant, severe tenderness in the right lower quadrant, with rebound, voluntary guarding is not appreciated, involuntary guarding is elicited in the right upper quadrant and right lower quadrant. 12:29 Back: Pain is noted in the lumbar area, There is no skin color changes or swelling to suggest post injection infection. 12:29 Skin: skin color is normal, warm, dry. 12:29 Extremities: The extremities have a grossly normal appearance, are non-tender, without acute ROM abnormalities. 12:29 Neuro: oriented x 3, cranial nerves normal as tested, no motor deficits, no sensory deficits. 12:29 Psych: mood is normal. Vital Signs: 11:23 BP 175 / 102; Pulse 132; Resp 20 S; Temp 101.6(O); Pulse Ox 94% on R/A; Weight 72.57 kg dd6 / 159.99 lbs (R); Height 5 ft. 2 in. (157.48 cm) (R); 15:04 BP 146 / 65 (auto/); nr1 15:57 Resp 22; Pulse Ox 90% on R/A; Pain 7/10; nr1 16:26 BP 152 / 70 (auto/); nr1 16:26 Resp 16; Pulse Ox 97% ; nr1 17:21 BP 171 / 73 (auto/); nr1 17:21 Pulse 101; Resp 20; Temp 98.4(O); Pulse Ox 97% ; nr1 18:19 BP 164 / 74; Pulse 115; Resp 16; Temp 98.4(O); Pulse Ox 95% on R/A; Pain 10/10; nr1 20:45 Pulse Ox 94% ; cf2 20:45 BP 142 / 88; Pulse 92; Resp 20; Temp 98.0; Pain 8/10; cf2 21:04 Pulse Ox 95% ; cf2 22:01 Pulse Ox 95% ; cf2 22:18 Pulse Ox 94% ; cf2 22:29 Pulse Ox 92% ; cf2 22:40 Pulse Ox 92% ; cf2 22:49 Pulse Ox 94% ; cf2 22:59 Pulse Ox 94% ; cf2 23:08 Pulse Ox 95% ; cf2 23:19 Pulse Ox 95% ; cf2 23:28 Pulse Ox 96% ; cf2 23:38 Pulse Ox 96% ; cf2 23:45 Pulse Ox 96% ; cf2 23:53 Pulse Ox 95% ; cf2 23:58 Pulse Ox 95% ; cf2 11:23 Body Mass Index 29.26 (72.57 kg, 157.48 cm) dd6 MDM: 11:41 IV Saline Lock ordered. pc 11:41 -Blood Culture (Adults Only), peripheral from different site, or from device/port/PICC pc etc. if present ordered. 11:41 CBC with Diff Ordered. EDMS 11:41 MED Profile Ordered. EDMS 11:41 Lactic Acid (Funez tube on ice) Ordered. EDMS 11:42 C Reactive Protein Ordered. EDMS 11:42 -Blood Culture Ordered. EDMS 11:43 NOTHING BY MOUTH+DIET ordered. EDMS 11:50 -Blood Culture (Adults Only), peripheral from different site, or from device/port/PICC lbd etc. if present complete. 11:52 BLOOD CULTURES Ordered. EDMS 12:16 DIFFERENTIAL NO CHARGE Ordered. EDMS 12:16 PLATELET ESTIMATE Ordered. EDMS 12:20 Acetaminophen Tablet 650 mg PO once ordered. pc 12:21 Urinalysis Ordered. EDMS 12:21 Urine Culture Ordered. EDMS 12:21 morphine 4 mg IVP once ordered. pc 12:21 Ondansetron 4 mg IVP once ordered. pc 12:22 CBC with Diff Reviewed. pc 12:29 Differential diagnosis: cholecystitis, perforated viscous, Peritonitis, pc Ureterolithiasis, chronic back pain with acute exacerbation. Plan: meds, labs, imaging. 12:52 CBC with Diff Reviewed. pc 12:52 Lactic Acid (Funez tube on ice) Reviewed. pc 12:52 PLATELET ESTIMATE Reviewed. pc 13:30 MED Profile Reviewed. pc 13:30 C Reactive Protein Reviewed. pc 13:43 Urinalysis Reviewed. pc 13:44 morphine 4 mg IVP every 30 minutes; Document pain score/vitals after each dose (Hold if pc SBP < 90mmHg) x2 ordered. 13:46 Ultrasound, Renal Ordered. EDMS 13:58 Financial registration complete. jls1 13:59 [facility] Payment Agreement was scanned into [employer] and attached to record. jls1 14:37 Abdomen, Flat\\E\\Upright,PA Chest Ordered. EDMS 16:08 Ultrasound, Renal Reviewed. pc 16:10 CT ABD & PELVIS: IV and Oral Contrast Ordered. EDMS 18:22 morphine 4 mg IVP every 30 minutes; Document pain score/vitals after each dose (Hold if pc SBP < 90mmHg) x2 ordered. 19:17 Ultrasound, Renal Reviewed. pc 19:17 Abdomen, Flat\\E\\Upright,PA Chest Reviewed. pc 19:21 Ciprofloxacin 400 mg IVPB at 200 mL/hr once over 60 mins ordered. pc 19:22 BED REQUEST+ADM ordered. EDMS 19:22 Data reviewed: old medical records, vital signs, nurses notes. Test interpretation: LAB pc - all labs as ordered have been reviewed, interpreted and considered in the overall management of the clinical presentation; X-RAY - Test interpretation: interpreted by Radiologist and personally reviewed, Abdomen/Pelvis CT; no acute disease. The patient has been re-examined and re-evaluated. The patient's symptoms have mildly improved after treatment. Disposition: The historical points, examination findings, and any diagnostic results supporting the provided diagnosis, were discussed with the patient or legal guardian. The need for further work-up and/or treatment in the hospital was explained. 19:28 Physician consultation: Dr. Joselito Peraza MD was contacted at 19:28, regarding admission, mm11 and will see patient in ED, shortly. 19:29 NS 0.9% 1000 ml IV at 100 mL/hr continuous ordered. mm11 20:17 MRI Screening Tool - Place on chart, inform RN ordered. ss12 20:18 -MRI-Spine, Lumbar with contrast Ordered. EDMS 20:22 PHYSICAL THERAPY EVAL & TREAT ordered. EDMS 20:22 CONSISTENT CARBOHYDRATES ordered. EDMS 20:24 CBC WITH DIFFERENTIAL Ordered. EDMS 20:24 COMPLETE COMPHRENSIVE METABOLI Ordered. EDMS 20:25 -MRI-Spine, Lumbar without contrast Ordered. EDMS 20:53 MRI Screening Tool - Place on chart, inform RN complete. tmm1 21:31 oxyCODONE-acetaminophen 5 mg-325 mg 1 tabs PO once ordered. cf2 21:32 morphine 2 mg IVP once ordered. cf2 22:27 Admission / Observation Status ordered. EDMS 22:28 Written Provider Order was scanned into [employer] and attached to record. tmm1 22:51 morphine 5 mg IVP once ordered. cf2 08/01 00:13 oxyCODONE-acetaminophen 5 mg-325 mg 1 tabs PO once ordered. cf2 00:13 morphine 2 mg IVP once ordered. cf2 Administered Medications: 07/31 12:54 Drug: Acetaminophen 650 mg [acetaminophen 325 mg tablet (2 tabs)] Route: PO; nr1 12:54 Drug: morphine 4 mg [morphine 4 mg/mL intravenous cartridge (1 mL)] Route: IVP; Site: nr1 left antecubital; 12:54 Drug: Ondansetron 4 mg [ondansetron HCl 2 mg/mL intravenous solution (2 mL)] Route: nr1 IVP; Site: left antecubital; 13:51 Drug: morphine 4 mg [morphine 4 mg/mL intravenous cartridge (1 mL)] Route: IVP; Site: nr1 left antecubital; 15:09 Drug: morphine 4 mg [morphine 4 mg/mL intravenous cartridge (1 mL)] Route: IVP; Site: nr1 left forearm; 18:32 Drug: morphine 4 mg [morphine 4 mg/mL intravenous cartridge (1 mL)] Route: IVP; Site: nr1 left antecubital; 19:27 Drug: Ciprofloxacin 400 mg [ciprofloxacin 400 mg/200 mL in 5 % dextrose intravenous cf2 piggyback] Route: IVPB; Rate: 200 mL/hr; Infused Over: 60 mins; Site: left antecubital; 19:54 Drug: morphine 4 mg [morphine 4 mg/mL intravenous cartridge (1 mL)] Route: IVP; Site: cf2 left antecubital; 19:54 Drug: NS 0.9% 1000 ml [sodium chloride 0.9 % intravenous solution] Route: IV; Rate: 100 cf2 mL/hr; Site: left antecubital; 20:40 Drug: oxyCODONE-acetaminophen 1 tabs [oxycodone-acetaminophen 5 mg-325 mg tablet (1 cf2 tabs)] Route: PO; 21:33 Follow up: Response: Pain is resolved cf2 20:40 Drug: morphine 2 mg [morphine 2 mg/mL intravenous cartridge (1 mL)] Route: IVP; Site: cf2 left antecubital; 21:33 Follow up: Response: Pain is increased cf2 22:35 Drug: morphine 5 mg [morphine 4 mg/mL intravenous cartridge (1.25 mL)] Route: IVP; cf2 Site: left antecubital; 08/01 00:13 Drug: morphine 2 mg Route: IVP; Site: left antecubital; cf2 00:14 Follow up: Response: Pain is decreased cf2 00:14 Drug: oxyCODONE-acetaminophen 1 tabs [oxycodone-acetaminophen 5 mg-325 mg tablet (1 cf2 tabs)] Route: PO; 00:14 Follow up: Response: Pain is decreased cf2 Signatures: Dispatcher [employer] EDMS Andrea Cali MD MD pc Daly, Linda, Personal Injury Legal Assistant Unit lbd Tony Pinzon DO DO mm11 Haris Alejandre ss12 McLDiana sanchez, LENS GRINDER APPRENTICE LENS GRINDER APPRENTICE tmm1 Yeny An RN RN mk4 Tierra Pitt RN RN [place] jls1 Adele Perales RN RN cf2 Jamaal Saravia RN RN sa The chart was reviewed and I authenticate all verbal orders and agree with the evaluation and treatment provided.Attachments: 07/31 13:59 [facility] Payment Agreement [email or web address] 22:28 Written Provider Order tmm1 Chart Complete MTDD
[2016-08-03] MEDS: CYCLOBENZAPRINE 5MG TABLET PO PRN ×3 (02:34→23:31)
[2016-08-03] MEDS: PIPERACILLIN/TAZOBACTAM SOD 3.375 GM in D5W MINI-BAG PLUS 50 ML IV SCH ×2 (02:34→09:22)
[2016-08-03] MEDS: PERCOCET 5MG/325MG TAB PO PRN ×3 (02:35→23:31)
[2016-08-03 04:45] VITALS: BP 141/75
[2016-08-03 05:41] LABS: BASO % 0.3 % (0.0-1.0); EOS # 0.1 K/mm3 (0.0-0.50); EOS % 0.9 % (0.0-3.0); LARGE UNSTAINED CELL # 0.2 K/mm3 (0.0-0.4); LARGE UNSTAINED CELL % 2.3 % (0.0-4.0); LYMPH # 2.4 K/mm3 (1.5-4.5); LYMPH % 29.5 % (24.0-44.0); MEAN CORPUSCULAR HEMOGLOBIN 30.9 pg (27.0-33.0); MEAN CORPUSCULAR VOLUME 90.9 fl (80.0-96.0); MONO # 0.5 K/mm3 (0.0-0.8); MONO % 5.5 % (0.0-5.0); NEUTROPHILS % 61.4 % (36.0-66.0); PLATELET COUNT, AUTOMATED 156 k/mm3 (150-450); RED CELL DISTRIBUTION WIDTH 12.9 % (11.5-14.5); WHITE BLOOD COUNT 8.1 K/mm3 (4.0-10.0)
[2016-08-03 06:14] LABS: ALBUMIN 2.5 GM/DL (3.2-5.2); ALBUMIN/GLOBULIN RATIO 0.69 (1.00-1.93); ALKALINE PHOSPHATASE 45 U/L (45-117); ALT/SGPT 22 U/L (12-78); ANION GAP 7 MEQ/L (8-16); AST/SGOT 12 U/L (15-37); BILIRUBIN,TOTAL 0.4 MG/DL (0.2-1.0); BLOOD UREA NITROGEN 13 MG/DL (7-18); CARBON DIOXIDE LEVEL 28 MEQ/L (21-32); CHLORIDE LEVEL 107 MEQ/L (98-107); CREATININE FOR GFR 0.78 MG/DL (0.55-1.02); GLOMERULAR FILTRATION RATE > 60.0 (>39); GLUCOSE, FASTING 111 MG/DL (83-110); POTASSIUM SERUM 3.8 MEQ/L (3.5-5.1); SODIUM LEVEL 142 MEQ/L (136-145); TOTAL PROTEIN 6.1 GM/DL (6.4-8.2)
[2016-08-03] MEDS: HEPARIN SOD (PORCINE) 5000 UNITS/ML VIAL SC SCH ×3 (07:43→21:56)
[2016-08-03] MEDS: HumaLOG INSULIN (NovoLOG) PER UNIT SC SCH ×4 (07:45→20:25)
[2016-08-03 08:00] VITALS: BP 134/70
[2016-08-03] MEDS: predniSONE 10 MG TAB PO SCH (08:10)
[2016-08-03] MEDS: RAMIPRIL 5 MG CAP PO SCH (08:11)
[2016-08-03] MEDS: SLF 3 ML SYR IV PRN ×2 (09:21→18:04)
[2016-08-03] MEDS: LEVOTHYROXINE 0.1 MG TAB (100 MCG) PO SCH (10:12)
[2016-08-03 12:00] VITALS: BP 130/70
--- NOTE | 2016-08-03 14:50 | IPNPDOC ---
Text Note Date of Service The patient was seen on 08/03/16 at 14:43. NOTE Subjective: Pt denies any current complaints. States the drainage from her lower abdomen has significantly improved. Objective: Vitals: (see below) General: No acute distress, laying comfortably in bed. HEENT: Moist mucous membranes. Neck: No JVD or lymphadenopathy Cardiac: RRR. 3/6 Systolic murmur loudest at the 2nd RICS. Pulm: Clear to auscultation b/l. No wheezing, rhonchi Abd: Horizontal scar of prior hysterectomy with no drainage today. NT/ND + BS. Obese Ext: No edema or cyanosis. Neuro: Strength 5/5 LUE/LLE. 3/5 RLE/RUE. Tremor in b/l upper extremities. CN 2-12 intact. Negative pronator drift. Negative Babinki. DTR 2+ throughout. Labs (see below) Images: Renal u/s 07/31/16 IMPRESSION: Negative renal ultrasound. CT abd/pelvis 07/31/16 The liver is of uniform attenuation without mass or defect. There is no intra or extrahepatic biliary ductal dilatation. The spleen is normal. The gallbladder is within normal limits. The pancreas is atrophic and partially fatty-replaced.. There is no evidence of adrenal mass. Both kidneys demonstrate prompt and equal nephrograms. The kidneys are normal in size, shape and configuration. There is no evidence of renal or ureteral mass. No renal or ureteral calculi are identified. There is no hydroureter or hydronephrosis. No evidence for appendicitis. There is no bowel wall thickening. No evidence for small or large bowel obstruction. There is no evidence of abdominal ascites or lymphadenopathy. There is no evidence of intrinsic or extrinsic bladder mass. There is no pelvic ascites or lymphadenopathy. Status post complete hysterectomy. Images of the lung bases show no evidence of pleural or parenchymal mass. There are no pleural effusions. The bony structures are free of lytic or blastic lesions. Multilevel degenerative changes are seen involving the thoracolumbar spine. Scattered calcifications are seen involving the aorta and major branches compatible with atherosclerosis. IMPRESSION: No evidence of acute abdominal or pelvic pathology. CXR 07/31/16 IMPRESSION: No infiltrate seen. Abd wall u/s 08/02/16 ABDOMINAL WALL ULTRASOUND: Real-time sonographic evaluation of the abdominal wall performed in the region of redness. There is no underlying fluid collection. No other underlying soft tissue abnormality is seen. MRI Brain 08/01/16 FINDINGS: The sella and parasellar regions are unremarkable in appearance. The corpus callosum and cerebellar tonsils are of normal configuration and position. There are no intra or extra-axial collections. There is no mass effect or midline shift. There is no evidence of hematoma formation. There is no hydrocephalus. The brain stem shows no mass effects, infarcts or hemorrhage. There are no cerebellopontine tumors. The acoustic nerves are symmetrical. No cerebellar intra-axial pathology delineated. The fourth ventricle and aqueduct are normal. No abnormalities of the optic nerves are identified. No dural or subdural masses or collections are detected. No evidence of restricted diffusion. There is evidence for generalized symmetrical dilatation of the ventricles and cortical sulci consistent with parenchymal atrophy. There are bilateral periventricular and subcortical T2 and FLAIR hyperintensities compatible with chronic white matter ischemic disease. The visualized arterial structures demonstrate normal appearing flow voids. The VII and VIII nerve bundles are visualized and are unremarkable in appearance. Mucosal thickening is seen involving bilateral ethmoid and maxillary sinuses compatible with chronic sinusitis. IMPRESSION: 1. Generalized age-appropriate parenchymal atrophy. 2. Bilateral periventricular and subcortical white matter chronic ischemic changes. 3. Chronic ethmoid and maxillary sinusitis. 4. No evidence of acute intracranial pathology. MRI Cervical spine 08/01/16 IMPRESSION: 1. At C3-C4, 1 mm bulge indents the ventral thecal sac. Canal and foramina are patent. 2. At C4-C5, central herniated disc measures 7 x 1.5 mm indent the ventral thecal sac. Canal and foramina are patent. 3. At C5-C6, broad based herniated disc is seen across the disc space measures 20 x 3 mm in contact with the cord. Canal is stenotic. There is moderate bilateral foraminal stenosis. Spondylolisthesis and uncovertebral joint hypertrophy contribute. 4. At C6-C7, 1 mm bulge indents the ventral thecal sac. Canal and foramina are patent. 5. Multilevel spondylolisthesis. 6. Straightening of cervical lordosis is compatible with muscle spasm. MRI Lumbar spine 08/01/16 IMPRESSION: 1. Chronic compression fracture involving L1 vertebral body. No acute fractures. 2. No evidence of an abscess. No abnormal enhancement is demonstrated. 3. At L5-S1, central herniated disc indents the ventral thecal sac. There is superimposed bulge. Both foramina are narrowed. Canal is mildly stenotic. Hypertrophic facet disease and ligamentum flavum hypertrophy contribute. Left facet joint effusion is present. 4. At L4-L5, diffuse bulge is seen. There is mild to moderate bilateral foraminal stenosis and mild to moderate central canal stenosis. Hypertrophic facet disease and ligamentum flavum hypertrophy contribute. Left facet joint effusion is present. 5. At L3-L4, bilobed bulge is seen. Both foramina are narrowed. Canal is patent. Hypertrophic facet disease is seen. MRI Thoracic spine 08/01/16 IMPRESSION: 1. There is evidence of a mild compression fracture deformity involving L1 vertebral body likely chronic. 2. Herniated discs at T11-T12 and T12-L1 centrally which in contact with the cord with canal stenosis. Foramina are patent. 3. There is no evidence of abnormal enhancement and no evidence of an abscess. Assessment/Plan 1. Sepsis 2/2 MSSA. Abx changed to Nafcillin. MRIs of the cervical/lumbar/ thoracic spine negative for abscess. Echocardiogram negative for vegetations. However, given murmur that is new and prominent today, I have spoken to Dr. Hernandes who will eval for possible GAIL. CT abdomen and pelvis with possible carbuncle versus cyst on the left kidney which will need a repeat CAT scan once the patient's bacteremia has resolved. I also spoke with Dr. Segura who also believes that this may be a cyst however a repeat CAT scan would be warranted to ensure resolution. 2. History of CVA with baseline weakness on the right side. MRI of the brain negative for acute cva. In the meantime patient is on broad-spectrum antibiotics. IV fluids. 3. Diabetes mellitus - continue to hold metformin. Sliding scale insulin 4. Hypothyroidism- continue Synthroid 5. Hypertension- continue ramipril 6. History of Recurrent nephrolithiasis 7. 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 DVT prophy: Heparin subcutaneous VS,Fishbone, I+O VS, Fishbone, I+O Laboratory Tests 08/03/16 05:30 Calcium Level 8.0 L, Aspartate Amino Transf (AST/SGOT) 12 L, Alanine Aminotransferase (ALT/SGPT) 22, Alkaline Phosphatase 45, Total Bilirubin 0.4, Total Protein 6.1 L, Albumin 2.5 L, Red Blood Count 3.26 L, Mean Corpuscular Volume 90.9, Mean Corpuscular Hemoglobin 30.9, Mean Corpuscular Hemoglobin Concent 34.0, Red Cell Distribution Width 12.9, Neutrophils (%) (Auto) 61.4, Lymphocytes (%) (Auto) 29.5, Monocytes (%) (Auto) 5.5 H, Eosinophils (%) (Auto) 0.9, Basophils (%) (Auto) 0.3, Neutrophils # (Auto) 5.0, Lymphocytes # (Auto) 2.4, Monocytes # (Auto) 0.5, Eosinophils # (Auto) 0.1, Basophils # (Auto) 0.0 Vital Signs Date Time Temp Pulse Resp B/P Pulse Ox O2 Delivery O2 Flow Rate FiO2 08/03/16 08:11 141/75 08/03/16 08:00 96.8 88 18 95 Room Air 08/02/16 08:00 2.0 I&O- Last 24 Hours up to 6 AM 08/03/16 06:00 Intake Total 1070 ml Output Total 2325 ml Balance -1255 ml ARABELLA PULLIAM MD Aug 03, 2016 14:50
[2016-08-03] MEDS: NAFCILLIN SOD 2 GM in D5W MINI-BAG PLUS 100 ML IV SCH ×3 (15:15→21:56)
[2016-08-03] MEDS: SLF 3 ML SYR IV SCH ×2 (15:17→21:56)
[2016-08-03 16:00] VITALS: BP 160/78
[2016-08-03 20:00] VITALS: BP 164/75
[2016-08-03 23:59] VITALS: BP 136/87
[2016-08-04] VITALS (7 sets, daily range): BP systolic 146–180; BP diastolic 62–89
[2016-08-04] MEDS: NAFCILLIN SOD 2 GM in D5W MINI-BAG PLUS 100 ML IV SCH ×6 (01:26→21:13)
[2016-08-04] MEDS: PERCOCET 5MG/325MG TAB PO PRN ×3 (04:02→21:21)
[2016-08-04] MEDS: SLF 3 ML SYR IV SCH ×3 (05:25→19:43)
[2016-08-04] MEDS: HEPARIN SOD (PORCINE) 5000 UNITS/ML VIAL SC SCH ×3 (05:25→21:13)
[2016-08-04] MEDS: LEVOTHYROXINE 0.1 MG TAB (100 MCG) PO SCH (05:25)
[2016-08-04 05:32] LABS: BASO # 0.1 K/mm3 (0.0-0.2); EOS # 0.1 K/mm3 (0.0-0.50); EOS % 1.1 % (0.0-3.0); LARGE UNSTAINED CELL # 0.2 K/mm3 (0.0-0.4); LARGE UNSTAINED CELL % 2.4 % (0.0-4.0); LYMPH # 3.8 K/mm3 (1.5-4.5); LYMPH % 41.2 % (24.0-44.0); MEAN CORPUSCULAR HEMOGLOBIN 31.1 pg (27.0-33.0); MEAN CORPUSCULAR HGB CONC 34.2 g/dl (32.0-36.5); MONO # 0.6 K/mm3 (0.0-0.8); MONO % 6.9 % (0.0-5.0); NEUTROPHILS # 4.1 K/mm3 (1.8-7.7); NEUTROPHILS % 47.3 % (36.0-66.0); PLATELET COUNT, AUTOMATED 188 k/mm3 (150-450); WHITE BLOOD COUNT 8.7 K/mm3 (4.0-10.0)
[2016-08-04 05:48] LABS: ALBUMIN 2.7 GM/DL (3.2-5.2); ALBUMIN/GLOBULIN RATIO 0.73 (1.00-1.93); ALKALINE PHOSPHATASE 54 U/L (45-117); ALT/SGPT 36 U/L (12-78); ANION GAP 10 MEQ/L (8-16); AST/SGOT 26 U/L (15-37); BILIRUBIN,TOTAL 0.6 MG/DL (0.2-1.0); BLOOD UREA NITROGEN 15 MG/DL (7-18); CALCIUM LEVEL 8.5 MG/DL (8.8-10.2); CARBON DIOXIDE LEVEL 29 MEQ/L (21-32); CHLORIDE LEVEL 104 MEQ/L (98-107); CREATININE FOR GFR 0.75 MG/DL (0.55-1.02); GLOMERULAR FILTRATION RATE > 60.0 (>39); GLUCOSE, FASTING 119 MG/DL (83-110); POTASSIUM SERUM 3.6 MEQ/L (3.5-5.1); SODIUM LEVEL 143 MEQ/L (136-145); TOTAL PROTEIN 6.4 GM/DL (6.4-8.2)
[2016-08-04] MEDS: CYCLOBENZAPRINE 5MG TABLET PO PRN ×3 (06:52→23:09)
[2016-08-04] MEDS: predniSONE 10 MG TAB PO SCH (08:25)
[2016-08-04] MEDS: HumaLOG INSULIN (NovoLOG) PER UNIT SC SCH ×4 (08:25→21:00)
[2016-08-04] MEDS: RAMIPRIL 5 MG CAP PO SCH (08:25)
--- NOTE | 2016-08-04 10:28 | IPNPDOC ---
Text Note Date of Service The patient was seen on 08/04/16 at 10:24. NOTE Subjective: Pt denies any current complaints. No acute changes overnight. Objective: Vitals: (see below) General: No acute distress, laying comfortably in bed. HEENT: Moist mucous membranes. Neck: No JVD or lymphadenopathy Cardiac: RRR. 3/6 Systolic murmur loudest at the 2nd RICS. Pulm: Clear to auscultation b/l. No wheezing, rhonchi Abd: Horizontal scar of prior hysterectomy with no drainage today. NT/ND + BS. Obese Ext: No edema or cyanosis. Neuro: Strength 5/5 LUE/LLE. 4/5 RLE/RUE. Tremor in b/l upper extremities. CN 2-12 intact. Negative pronator drift. Negative Babinki. DTR 2+ throughout. Labs (see below) Images: Renal u/s 07/31/16 IMPRESSION: Negative renal ultrasound. CT abd/pelvis 07/31/16 The liver is of uniform attenuation without mass or defect. There is no intra or extrahepatic biliary ductal dilatation. The spleen is normal. The gallbladder is within normal limits. The pancreas is atrophic and partially fatty-replaced.. There is no evidence of adrenal mass. Both kidneys demonstrate prompt and equal nephrograms. The kidneys are normal in size, shape and configuration. There is no evidence of renal or ureteral mass. No renal or ureteral calculi are identified. There is no hydroureter or hydronephrosis. No evidence for appendicitis. There is no bowel wall thickening. No evidence for small or large bowel obstruction. There is no evidence of abdominal ascites or lymphadenopathy. There is no evidence of intrinsic or extrinsic bladder mass. There is no pelvic ascites or lymphadenopathy. Status post complete hysterectomy. Images of the lung bases show no evidence of pleural or parenchymal mass. There are no pleural effusions. The bony structures are free of lytic or blastic lesions. Multilevel degenerative changes are seen involving the thoracolumbar spine. Scattered calcifications are seen involving the aorta and major branches compatible with atherosclerosis. IMPRESSION: No evidence of acute abdominal or pelvic pathology. CXR 07/31/16 IMPRESSION: No infiltrate seen. Abd wall u/s 08/02/16 ABDOMINAL WALL ULTRASOUND: Real-time sonographic evaluation of the abdominal wall performed in the region of redness. There is no underlying fluid collection. No other underlying soft tissue abnormality is seen. MRI Brain 08/01/16 FINDINGS: The sella and parasellar regions are unremarkable in appearance. The corpus callosum and cerebellar tonsils are of normal configuration and position. There are no intra or extra-axial collections. There is no mass effect or midline shift. There is no evidence of hematoma formation. There is no hydrocephalus. The brain stem shows no mass effects, infarcts or hemorrhage. There are no cerebellopontine tumors. The acoustic nerves are symmetrical. No cerebellar intra-axial pathology delineated. The fourth ventricle and aqueduct are normal. No abnormalities of the optic nerves are identified. No dural or subdural masses or collections are detected. No evidence of restricted diffusion. There is evidence for generalized symmetrical dilatation of the ventricles and cortical sulci consistent with parenchymal atrophy. There are bilateral periventricular and subcortical T2 and FLAIR hyperintensities compatible with chronic white matter ischemic disease. The visualized arterial structures demonstrate normal appearing flow voids. The VII and VIII nerve bundles are visualized and are unremarkable in appearance. Mucosal thickening is seen involving bilateral ethmoid and maxillary sinuses compatible with chronic sinusitis. IMPRESSION: 1. Generalized age-appropriate parenchymal atrophy. 2. Bilateral periventricular and subcortical white matter chronic ischemic changes. 3. Chronic ethmoid and maxillary sinusitis. 4. No evidence of acute intracranial pathology. MRI Cervical spine 08/01/16 IMPRESSION: 1. At C3-C4, 1 mm bulge indents the ventral thecal sac. Canal and foramina are patent. 2. At C4-C5, central herniated disc measures 7 x 1.5 mm indent the ventral thecal sac. Canal and foramina are patent. 3. At C5-C6, broad based herniated disc is seen across the disc space measures 20 x 3 mm in contact with the cord. Canal is stenotic. There is moderate bilateral foraminal stenosis. Spondylolisthesis and uncovertebral joint hypertrophy contribute. 4. At C6-C7, 1 mm bulge indents the ventral thecal sac. Canal and foramina are patent. 5. Multilevel spondylolisthesis. 6. Straightening of cervical lordosis is compatible with muscle spasm. MRI Lumbar spine 08/01/16 IMPRESSION: 1. Chronic compression fracture involving L1 vertebral body. No acute fractures. 2. No evidence of an abscess. No abnormal enhancement is demonstrated. 3. At L5-S1, central herniated disc indents the ventral thecal sac. There is superimposed bulge. Both foramina are narrowed. Canal is mildly stenotic. Hypertrophic facet disease and ligamentum flavum hypertrophy contribute. Left facet joint effusion is present. 4. At L4-L5, diffuse bulge is seen. There is mild to moderate bilateral foraminal stenosis and mild to moderate central canal stenosis. Hypertrophic facet disease and ligamentum flavum hypertrophy contribute. Left facet joint effusion is present. 5. At L3-L4, bilobed bulge is seen. Both foramina are narrowed. Canal is patent. Hypertrophic facet disease is seen. MRI Thoracic spine 08/01/16 IMPRESSION: 1. There is evidence of a mild compression fracture deformity involving L1 vertebral body likely chronic. 2. Herniated discs at T11-T12 and T12-L1 centrally which in contact with the cord with canal stenosis. Foramina are patent. 3. There is no evidence of abnormal enhancement and no evidence of an abscess. Assessment/Plan 1. Sepsis 2/2 MSSA. Abx changed to Nafcillin. MRIs of the cervical/lumbar/ thoracic spine negative for abscess. Echocardiogram negative for vegetations. However, given murmur that is new, I have spoken to Dr. Hernandes who will eval for possible GAIL. CT abdomen and pelvis with possible carbuncle versus cyst on the left kidney which will need a repeat CAT scan once the patient's bacteremia has resolved. I also spoke with Dr. Segura who also believes that this may be a cyst however a repeat CAT scan would be warranted to ensure resolution. 2. History of CVA with baseline weakness on the right side. MRI of the brain negative for acute cva. In the meantime patient is on broad-spectrum antibiotics. IV fluids. 3. Diabetes mellitus - continue to hold metformin. Sliding scale insulin 4. Hypothyroidism- continue Synthroid 5. Hypertension- continue ramipril 6. History of Recurrent nephrolithiasis 7. 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 DVT prophy: Heparin subcutaneous VS,Fishbone, I+O VS, Fishbone, I+O Laboratory Tests 08/04/16 04:32 Calcium Level 8.5 L, Aspartate Amino Transf (AST/SGOT) 26, Alanine Aminotransferase (ALT/SGPT) 36, Alkaline Phosphatase 54, Total Bilirubin 0.6, Total Protein 6.4, Albumin 2.7 L, Red Blood Count 3.45 L, Mean Corpuscular Volume 91.0, Mean Corpuscular Hemoglobin 31.1, Mean Corpuscular Hemoglobin Concent 34.2, Red Cell Distribution Width 14.0, Neutrophils (%) (Auto) 47.3, Lymphocytes (%) (Auto) 41.2, Monocytes (%) (Auto) 6.9 H, Eosinophils (%) (Auto) 1.1, Basophils (%) (Auto) 1.0, Neutrophils # (Auto) 4.1, Lymphocytes # (Auto) 3.8, Monocytes # (Auto) 0.6, Eosinophils # (Auto) 0.1, Basophils # (Auto) 0.1 Vital Signs Date Time Temp Pulse Resp B/P Pulse Ox O2 Delivery O2 Flow Rate FiO2 08/04/16 08:25 166/89 08/04/16 05:27 20 08/04/16 04:00 96.6 67 95 Room Air 08/02/16 08:00 2.0 I&O- Last 24 Hours up to 6 AM 08/04/16 06:00 Intake Total 1730 ml Output Total 1000 ml Balance 730 ml ARABELLA PULLIAM MD Aug 04, 2016 10:28
[2016-08-04] MEDS: MORPHINE 2 MG/ML 1ML SYRINGE IV PRN (19:42)
[2016-08-05] MEDS: NAFCILLIN SOD 2 GM in D5W MINI-BAG PLUS 100 ML IV SCH ×6 (00:42→20:22)
[2016-08-05] MEDS: PERCOCET 5MG/325MG TAB PO PRN ×4 (01:29→16:48)
[2016-08-05 04:00] VITALS: BP 144/63
[2016-08-05 05:09] LABS: BASO % 0.4 % (0.0-1.0); EOS # 0.1 K/mm3 (0.0-0.50); EOS % 1.1 % (0.0-3.0); LARGE UNSTAINED CELL # 0.2 K/mm3 (0.0-0.4); LARGE UNSTAINED CELL % 3.2 % (0.0-4.0); LYMPH # 3.1 K/mm3 (1.5-4.5); LYMPH % 47.5 % (24.0-44.0); MEAN CORPUSCULAR HEMOGLOBIN 30.4 pg (27.0-33.0); MEAN CORPUSCULAR VOLUME 91.9 fl (80.0-96.0); MONO # 0.4 K/mm3 (0.0-0.8); MONO % 6.1 % (0.0-5.0); NEUTROPHILS # 2.7 K/mm3 (1.8-7.7); NEUTROPHILS % 41.8 % (36.0-66.0); PLATELET COUNT, AUTOMATED 199 k/mm3 (150-450); RED CELL DISTRIBUTION WIDTH 13.4 % (11.5-14.5); WHITE BLOOD COUNT 6.4 K/mm3 (4.0-10.0)
[2016-08-05] MEDS: HEPARIN SOD (PORCINE) 5000 UNITS/ML VIAL SC SCH ×3 (05:15→20:22)
[2016-08-05] MEDS: LEVOTHYROXINE 0.1 MG TAB (100 MCG) PO SCH (05:15)
[2016-08-05] MEDS: CYCLOBENZAPRINE 5MG TABLET PO PRN ×3 (05:16→18:13)
[2016-08-05] MEDS: SLF 3 ML SYR IV SCH ×3 (05:16→20:23)
[2016-08-05 05:25] LABS: ALBUMIN 2.7 GM/DL (3.2-5.2); ALBUMIN/GLOBULIN RATIO 0.68 (1.00-1.93); ALKALINE PHOSPHATASE 60 U/L (45-117); ALT/SGPT 43 U/L (12-78); ANION GAP 10 MEQ/L (8-16); AST/SGOT 26 U/L (15-37); BILIRUBIN,TOTAL 0.5 MG/DL (0.2-1.0); BLOOD UREA NITROGEN 16 MG/DL (7-18); CALCIUM LEVEL 8.2 MG/DL (8.8-10.2); CARBON DIOXIDE LEVEL 27 MEQ/L (21-32); CHLORIDE LEVEL 106 MEQ/L (98-107); CREATININE FOR GFR 0.82 MG/DL (0.55-1.02); GLOMERULAR FILTRATION RATE > 60.0 (>39); GLUCOSE, FASTING 116 MG/DL (83-110); POTASSIUM SERUM 3.4 MEQ/L (3.5-5.1); SODIUM LEVEL 143 MEQ/L (136-145); TOTAL PROTEIN 6.7 GM/DL (6.4-8.2)
[2016-08-05] MEDS: RAMIPRIL 5 MG CAP PO SCH (08:31)
[2016-08-05] MEDS: predniSONE 10 MG TAB PO SCH (08:35)
[2016-08-05] MEDS: HumaLOG INSULIN (NovoLOG) PER UNIT SC SCH ×4 (08:35→21:00)
[2016-08-05] MEDS ORDERED: POTASSIUM CHLORIDE 10 MEQ SR TABLET PO ONE (09:00)
[2016-08-05] MEDS: MORPHINE 2 MG/ML 1ML SYRINGE IV PRN ×2 (09:09→20:23)
[2016-08-05] MEDS: KETOROLAC 30 MG/ML VIAL (J1885) IV PRN ×2 (10:45→16:48)
--- NOTE | 2016-08-05 11:12 | IPNPDOC ---
Text Note Date of Service The patient was seen on 08/05/16 at 11:03. NOTE Subjective: Pt c/o increased lower back pain and upper extremities and right sided spasms. Objective: Vitals: (see below) General: No acute distress, laying comfortably in bed. HEENT: Moist mucous membranes. Neck: No JVD or lymphadenopathy Cardiac: RRR. 3/6 Systolic murmur loudest at the 2nd RICS. Pulm: Clear to auscultation b/l. No wheezing, rhonchi Abd: Horizontal scar of prior hysterectomy with no drainage today. NT/ND + BS. Obese Ext: No edema or cyanosis. Neuro: Strength 5/5 LUE/LLE. 4/5 RLE/RUE. Spasms in b/l upper extremities have increased today. CN 2-12 intact. Negative pronator drift. Negative Babinki. DTR 2+ throughout. Labs (see below) Images: Renal u/s 07/31/16 IMPRESSION: Negative renal ultrasound. CT abd/pelvis 07/31/16 The liver is of uniform attenuation without mass or defect. There is no intra or extrahepatic biliary ductal dilatation. The spleen is normal. The gallbladder is within normal limits. The pancreas is atrophic and partially fatty-replaced.. There is no evidence of adrenal mass. Both kidneys demonstrate prompt and equal nephrograms. The kidneys are normal in size, shape and configuration. There is no evidence of renal or ureteral mass. No renal or ureteral calculi are identified. There is no hydroureter or hydronephrosis. No evidence for appendicitis. There is no bowel wall thickening. No evidence for small or large bowel obstruction. There is no evidence of abdominal ascites or lymphadenopathy. There is no evidence of intrinsic or extrinsic bladder mass. There is no pelvic ascites or lymphadenopathy. Status post complete hysterectomy. Images of the lung bases show no evidence of pleural or parenchymal mass. There are no pleural effusions. The bony structures are free of lytic or blastic lesions. Multilevel degenerative changes are seen involving the thoracolumbar spine. Scattered calcifications are seen involving the aorta and major branches compatible with atherosclerosis. IMPRESSION: No evidence of acute abdominal or pelvic pathology. CXR 07/31/16 IMPRESSION: No infiltrate seen. Abd wall u/s 08/02/16 ABDOMINAL WALL ULTRASOUND: Real-time sonographic evaluation of the abdominal wall performed in the region of redness. There is no underlying fluid collection. No other underlying soft tissue abnormality is seen. MRI Brain 08/01/16 FINDINGS: The sella and parasellar regions are unremarkable in appearance. The corpus callosum and cerebellar tonsils are of normal configuration and position. There are no intra or extra-axial collections. There is no mass effect or midline shift. There is no evidence of hematoma formation. There is no hydrocephalus. The brain stem shows no mass effects, infarcts or hemorrhage. There are no cerebellopontine tumors. The acoustic nerves are symmetrical. No cerebellar intra-axial pathology delineated. The fourth ventricle and aqueduct are normal. No abnormalities of the optic nerves are identified. No dural or subdural masses or collections are detected. No evidence of restricted diffusion. There is evidence for generalized symmetrical dilatation of the ventricles and cortical sulci consistent with parenchymal atrophy. There are bilateral periventricular and subcortical T2 and FLAIR hyperintensities compatible with chronic white matter ischemic disease. The visualized arterial structures demonstrate normal appearing flow voids. The VII and VIII nerve bundles are visualized and are unremarkable in appearance. Mucosal thickening is seen involving bilateral ethmoid and maxillary sinuses compatible with chronic sinusitis. IMPRESSION: 1. Generalized age-appropriate parenchymal atrophy. 2. Bilateral periventricular and subcortical white matter chronic ischemic changes. 3. Chronic ethmoid and maxillary sinusitis. 4. No evidence of acute intracranial pathology. MRI Cervical spine 08/01/16 IMPRESSION: 1. At C3-C4, 1 mm bulge indents the ventral thecal sac. Canal and foramina are patent. 2. At C4-C5, central herniated disc measures 7 x 1.5 mm indent the ventral thecal sac. Canal and foramina are patent. 3. At C5-C6, broad based herniated disc is seen across the disc space measures 20 x 3 mm in contact with the cord. Canal is stenotic. There is moderate bilateral foraminal stenosis. Spondylolisthesis and uncovertebral joint hypertrophy contribute. 4. At C6-C7, 1 mm bulge indents the ventral thecal sac. Canal and foramina are patent. 5. Multilevel spondylolisthesis. 6. Straightening of cervical lordosis is compatible with muscle spasm. MRI Lumbar spine 08/01/16 IMPRESSION: 1. Chronic compression fracture involving L1 vertebral body. No acute fractures. 2. No evidence of an abscess. No abnormal enhancement is demonstrated. 3. At L5-S1, central herniated disc indents the ventral thecal sac. There is superimposed bulge. Both foramina are narrowed. Canal is mildly stenotic. Hypertrophic facet disease and ligamentum flavum hypertrophy contribute. Left facet joint effusion is present. 4. At L4-L5, diffuse bulge is seen. There is mild to moderate bilateral foraminal stenosis and mild to moderate central canal stenosis. Hypertrophic facet disease and ligamentum flavum hypertrophy contribute. Left facet joint effusion is present. 5. At L3-L4, bilobed bulge is seen. Both foramina are narrowed. Canal is patent. Hypertrophic facet disease is seen. MRI Thoracic spine 08/01/16 IMPRESSION: 1. There is evidence of a mild compression fracture deformity involving L1 vertebral body likely chronic. 2. Herniated discs at T11-T12 and T12-L1 centrally which in contact with the cord with canal stenosis. Foramina are patent. 3. There is no evidence of abnormal enhancement and no evidence of an abscess. Assessment/Plan 1. Sepsis 2/2 MSSA. Abx changed to Nafcillin. MRIs of the cervical/lumbar/ thoracic spine negative for abscess. Echocardiogram negative for vegetations. I have spoken to Dr. Hernandes given murmur, with recommended holding off on a GAIL as pt is afebrile with negative repeat blood cx. CT abdomen and pelvis with possible carbuncle versus cyst on the left kidney which will need a repeat CAT scan once the patient's bacteremia has resolved. I also spoke with Dr. Segura who also believes that this may be a cyst however a repeat CAT scan would be warranted to ensure resolution. 2. History of CVA with baseline weakness on the right side. MRI of the brain negative for acute cva. In the meantime patient is on broad-spectrum antibiotics. IV fluids. 3. Diabetes mellitus - continue to hold metformin. Sliding scale insulin 4. Hypothyroidism- continue Synthroid 5. Hypertension- continue ramipril 6. History of Recurrent nephrolithiasis 7. 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 I have placed a call out to Dr. Will, the orthopedic senior engineering specialist who review the MRI's and requested a repeat MRI cervical spine without contrast, however would like to hold off until tomorrow, and would like our sample case porter to check and see if her insurance will approve it. DVT prophy: Heparin subcutaneous VS,Fishbone, I+O VS, Fishbone, I+O Laboratory Tests 08/05/16 04:38 Calcium Level 8.2 L, Aspartate Amino Transf (AST/SGOT) 26, Alanine Aminotransferase (ALT/SGPT) 43, Alkaline Phosphatase 60, Total Bilirubin 0.5, Total Protein 6.7, Albumin 2.7 L, Red Blood Count 3.36 L, Mean Corpuscular Volume 91.9, Mean Corpuscular Hemoglobin 30.4, Mean Corpuscular Hemoglobin Concent 33.0, Red Cell Distribution Width 13.4, Neutrophils (%) (Auto) 41.8, Lymphocytes (%) (Auto) 47.5 H, Monocytes (%) (Auto) 6.1 H, Eosinophils (%) (Auto ) 1.1, Basophils (%) (Auto) 0.4, Neutrophils # (Auto) 2.7, Lymphocytes # (Auto) 3.1, Monocytes # (Auto) 0.4, Eosinophils # (Auto) 0.1, Basophils # (Auto) 0.0 Vital Signs Date Time Temp Pulse Resp B/P Pulse Ox O2 Delivery O2 Flow Rate FiO2 08/05/16 09:20 18 08/05/16 08:31 144/63 08/05/16 04:00 97.6 78 94 Room Air 08/02/16 08:00 2.0 I&O- Last 24 Hours up to 6 AM 08/05/16 06:00 Intake Total 2060 ml Output Total 1475 ml Balance 585 ml ARABELLA PULLIAM MD Aug 05, 2016 11:12
[2016-08-05 12:00] VITALS: BP 120/78
[2016-08-05 16:00] VITALS: BP 140/64
[2016-08-05 20:00] VITALS: BP 145/69
[2016-08-06] VITALS (7 sets, daily range): BP systolic 131–177; BP diastolic 58–84
[2016-08-06] MEDS: NAFCILLIN SOD 2 GM in D5W MINI-BAG PLUS 100 ML IV SCH ×6 (00:03→21:06)
[2016-08-06] MEDS: KETOROLAC 30 MG/ML VIAL (J1885) IV PRN ×3 (00:04→21:07)
[2016-08-06] MEDS: PERCOCET 5MG/325MG TAB PO PRN ×5 (00:04→22:43)
[2016-08-06 05:21] LABS: BASO # 0.1 K/mm3 (0.0-0.2); BASO % 0.9 % (0.0-1.0); EOS # 0.2 K/mm3 (0.0-0.50); EOS % 2.1 % (0.0-3.0); LARGE UNSTAINED CELL # 0.2 K/mm3 (0.0-0.4); LARGE UNSTAINED CELL % 2.8 % (0.0-4.0); LYMPH # 3.7 K/mm3 (1.5-4.5); LYMPH % 46.7 % (24.0-44.0); MEAN CORPUSCULAR HEMOGLOBIN 30.2 pg (27.0-33.0); MEAN CORPUSCULAR HGB CONC 32.6 g/dl (32.0-36.5); MEAN CORPUSCULAR VOLUME 92.5 fl (80.0-96.0); MONO # 0.5 K/mm3 (0.0-0.8); NEUTROPHILS % 40.6 % (36.0-66.0); PLATELET COUNT, AUTOMATED 211 k/mm3 (150-450); RED CELL DISTRIBUTION WIDTH 14.3 % (11.5-14.5); WHITE BLOOD COUNT 7.5 K/mm3 (4.0-10.0)
[2016-08-06 05:37] LABS: ALBUMIN 2.6 GM/DL (3.2-5.2); ALBUMIN/GLOBULIN RATIO 0.72 (1.00-1.93); ALKALINE PHOSPHATASE 60 U/L (45-117); ALT/SGPT 39 U/L (12-78); ANION GAP 9 MEQ/L (8-16); AST/SGOT 18 U/L (15-37); BILIRUBIN,TOTAL 0.3 MG/DL (0.2-1.0); BLOOD UREA NITROGEN 14 MG/DL (7-18); CALCIUM LEVEL 7.9 MG/DL (8.8-10.2); CARBON DIOXIDE LEVEL 27 MEQ/L (21-32); CHLORIDE LEVEL 108 MEQ/L (98-107); CREATININE FOR GFR 0.82 MG/DL (0.55-1.02); GLOMERULAR FILTRATION RATE > 60.0 (>39); GLUCOSE, FASTING 113 MG/DL (83-110); POTASSIUM SERUM 3.8 MEQ/L (3.5-5.1); SODIUM LEVEL 144 MEQ/L (136-145); TOTAL PROTEIN 6.2 GM/DL (6.4-8.2)
[2016-08-06] MEDS: HEPARIN SOD (PORCINE) 5000 UNITS/ML VIAL SC SCH ×3 (05:48→21:06)
[2016-08-06] MEDS: SLF 3 ML SYR IV SCH ×3 (05:48→21:08)
[2016-08-06] MEDS: CYCLOBENZAPRINE 5MG TABLET PO PRN ×2 (05:48→17:21)
[2016-08-06] MEDS: LEVOTHYROXINE 0.1 MG TAB (100 MCG) PO SCH (05:48)
[2016-08-06] MEDS: HumaLOG INSULIN (NovoLOG) PER UNIT SC SCH ×4 (07:30→21:00)
[2016-08-06] MEDS: predniSONE 10 MG TAB PO SCH (08:00)
[2016-08-06] MEDS: RAMIPRIL 5 MG CAP PO SCH (08:00)
[2016-08-06] MEDS ORDERED: LORazepam 2 MG/ML VIAL (J2060) IV ONE (10:15)
[2016-08-06] MEDS ORDERED: POTASSIUM CHLORIDE 10 MEQ SR TABLET PO ONE (10:45)
[2016-08-06 10:55] LABS: MAGNESIUM LEVEL 2.1 MG/DL (1.8-2.4)
[2016-08-06] MEDS: METOPROLOL TART 25 MG TABLET PO SCH ×2 (12:17→21:06)
--- NOTE | 2016-08-06 14:47 | IPNPDOC ---
Text Note Date of Service The patient was seen on 08/06/16 at 14:43. NOTE Subjective: Pt has right sided spasms, which are increasing today Objective: Vitals: (see below) General: No acute distress, laying comfortably in bed. HEENT: Moist mucous membranes. Neck: No JVD or lymphadenopathy Cardiac: RRR. 3/6 Systolic murmur loudest at the 2nd RICS. Pulm: Clear to auscultation b/l. No wheezing, rhonchi Abd: Horizontal scar of prior hysterectomy with no drainage today. NT/ND + BS. Obese Ext: No edema or cyanosis. Neuro: Strength 5/5 LUE/LLE. 4/5 RLE/RUE. Spasms in Right upper extremity. CN 2-12 intact. Negative pronator drift. Negative Babinki. DTR 2+ throughout. RUE dysmetria. Labs (see below) Images: Renal u/s 07/31/16 IMPRESSION: Negative renal ultrasound. CT abd/pelvis 07/31/16 The liver is of uniform attenuation without mass or defect. There is no intra or extrahepatic biliary ductal dilatation. The spleen is normal. The gallbladder is within normal limits. The pancreas is atrophic and partially fatty-replaced.. There is no evidence of adrenal mass. Both kidneys demonstrate prompt and equal nephrograms. The kidneys are normal in size, shape and configuration. There is no evidence of renal or ureteral mass. No renal or ureteral calculi are identified. There is no hydroureter or hydronephrosis. No evidence for appendicitis. There is no bowel wall thickening. No evidence for small or large bowel obstruction. There is no evidence of abdominal ascites or lymphadenopathy. There is no evidence of intrinsic or extrinsic bladder mass. There is no pelvic ascites or lymphadenopathy. Status post complete hysterectomy. Images of the lung bases show no evidence of pleural or parenchymal mass. There are no pleural effusions. The bony structures are free of lytic or blastic lesions. Multilevel degenerative changes are seen involving the thoracolumbar spine. Scattered calcifications are seen involving the aorta and major branches compatible with atherosclerosis. IMPRESSION: No evidence of acute abdominal or pelvic pathology. CXR 07/31/16 IMPRESSION: No infiltrate seen. Abd wall u/s 08/02/16 ABDOMINAL WALL ULTRASOUND: Real-time sonographic evaluation of the abdominal wall performed in the region of redness. There is no underlying fluid collection. No other underlying soft tissue abnormality is seen. MRI Brain 08/01/16 FINDINGS: The sella and parasellar regions are unremarkable in appearance. The corpus callosum and cerebellar tonsils are of normal configuration and position. There are no intra or extra-axial collections. There is no mass effect or midline shift. There is no evidence of hematoma formation. There is no hydrocephalus. The brain stem shows no mass effects, infarcts or hemorrhage. There are no cerebellopontine tumors. The acoustic nerves are symmetrical. No cerebellar intra-axial pathology delineated. The fourth ventricle and aqueduct are normal. No abnormalities of the optic nerves are identified. No dural or subdural masses or collections are detected. No evidence of restricted diffusion. There is evidence for generalized symmetrical dilatation of the ventricles and cortical sulci consistent with parenchymal atrophy. There are bilateral periventricular and subcortical T2 and FLAIR hyperintensities compatible with chronic white matter ischemic disease. The visualized arterial structures demonstrate normal appearing flow voids. The VII and VIII nerve bundles are visualized and are unremarkable in appearance. Mucosal thickening is seen involving bilateral ethmoid and maxillary sinuses compatible with chronic sinusitis. IMPRESSION: 1. Generalized age-appropriate parenchymal atrophy. 2. Bilateral periventricular and subcortical white matter chronic ischemic changes. 3. Chronic ethmoid and maxillary sinusitis. 4. No evidence of acute intracranial pathology. MRI Cervical spine 08/01/16 IMPRESSION: 1. At C3-C4, 1 mm bulge indents the ventral thecal sac. Canal and foramina are patent. 2. At C4-C5, central herniated disc measures 7 x 1.5 mm indent the ventral thecal sac. Canal and foramina are patent. 3. At C5-C6, broad based herniated disc is seen across the disc space measures 20 x 3 mm in contact with the cord. Canal is stenotic. There is moderate bilateral foraminal stenosis. Spondylolisthesis and uncovertebral joint hypertrophy contribute. 4. At C6-C7, 1 mm bulge indents the ventral thecal sac. Canal and foramina are patent. 5. Multilevel spondylolisthesis. 6. Straightening of cervical lordosis is compatible with muscle spasm. MRI Lumbar spine 08/01/16 IMPRESSION: 1. Chronic compression fracture involving L1 vertebral body. No acute fractures. 2. No evidence of an abscess. No abnormal enhancement is demonstrated. 3. At L5-S1, central herniated disc indents the ventral thecal sac. There is superimposed bulge. Both foramina are narrowed. Canal is mildly stenotic. Hypertrophic facet disease and ligamentum flavum hypertrophy contribute. Left facet joint effusion is present. 4. At L4-L5, diffuse bulge is seen. There is mild to moderate bilateral foraminal stenosis and mild to moderate central canal stenosis. Hypertrophic facet disease and ligamentum flavum hypertrophy contribute. Left facet joint effusion is present. 5. At L3-L4, bilobed bulge is seen. Both foramina are narrowed. Canal is patent. Hypertrophic facet disease is seen. MRI Thoracic spine 08/01/16 IMPRESSION: 1. There is evidence of a mild compression fracture deformity involving L1 vertebral body likely chronic. 2. Herniated discs at T11-T12 and T12-L1 centrally which in contact with the cord with canal stenosis. Foramina are patent. 3. There is no evidence of abnormal enhancement and no evidence of an abscess. Assessment/Plan 1. Sepsis 2/2 MSSA. Abx changed to Nafcillin. MRIs of the cervical/lumbar/ thoracic spine negative for abscess. Echocardiogram negative for vegetations. I have spoken to Dr. Hernandes given murmur, with recommended holding off on a GAIL as pt is afebrile with negative repeat blood cx. CT abdomen and pelvis with possible carbuncle versus cyst on the left kidney which will need a repeat CAT scan once the patient's bacteremia has resolved. I also spoke with Dr. Segura who also believes that this may be a cyst however a repeat CAT scan would be warranted to ensure resolution. Will need ID consult, which will be available tomorrow. 2. History of CVA with baseline weakness on the right side. MRI of the brain negative for acute cva. In the meantime patient is on broad-spectrum antibiotics. IV fluids. 3. Diabetes mellitus - continue to hold metformin. Sliding scale insulin 4. Hypothyroidism- continue Synthroid 5. Hypertension- continue ramipril 6. History of Recurrent nephrolithiasis 7. 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 I have placed a call out to Dr. Will, the orthopedic water rights specialist who review the MRI's and requested a repeat MRI cervical spine without contrast, which will be done. 8. RUE spasms, pt was already on Flexeril. Dysmetria on exam. Recent MRI brain negative. I have called Dr. Dyson (neuro) who will evaluate patient today. DVT prophy: Heparin subcutaneous VS,Fishbone, I+O VS, Fishbone, I+O Laboratory Tests 08/06/16 04:20 Calcium Level 7.9 L, Aspartate Amino Transf (AST/SGOT) 18, Alanine Aminotransferase (ALT/SGPT) 39, Alkaline Phosphatase 60, Total Bilirubin 0.3, Total Protein 6.2 L, Albumin 2.6 L, Red Blood Count 3.28 L, Mean Corpuscular Volume 92.5, Mean Corpuscular Hemoglobin 30.2, Mean Corpuscular Hemoglobin Concent 32.6, Red Cell Distribution Width 14.3, Neutrophils (%) (Auto) 40.6, Lymphocytes (%) (Auto) 46.7 H, Monocytes (%) (Auto) 7.0 H, Eosinophils (%) (Auto ) 2.1, Basophils (%) (Auto) 0.9, Neutrophils # (Auto) 3.0, Lymphocytes # (Auto) 3.7, Monocytes # (Auto) 0.5, Eosinophils # (Auto) 0.2, Basophils # (Auto) 0.1 Vital Signs Date Time Temp Pulse Resp B/P Pulse Ox O2 Delivery O2 Flow Rate FiO2 08/06/16 12:47 18 08/06/16 12:17 94 174/82 08/06/16 11:44 97.5 94 Room Air 08/02/16 08:00 2.0 I&O- Last 24 Hours up to 6 AM 08/06/16 06:00 Intake Total 1960 ml Output Total 1000 ml Balance 960 ml ARABELLA PULLIAM MD Aug 06, 2016 14:47
[2016-08-06] MEDS: MORPHINE 2 MG/ML 1ML SYRINGE IV PRN ×2 (16:26→21:07)
[2016-08-06] MEDS: amLODIPine 5 MG TAB PO SCH (16:26)
[2016-08-07 00:07] VITALS: BP 154/69
[2016-08-07] MEDS: NAFCILLIN SOD 2 GM in D5W MINI-BAG PLUS 100 ML IV SCH ×6 (00:09→21:37)
--- NOTE | 2016-08-07 03:21 | CR ---
DATE OF CONSULTATION: 08/05/2016 CONSULTATION REPORT FOR: Russell Maria MD. REASON FOR CONSULTATION: Bacteremia, possible endocarditis. HISTORY OF PRESENT ILLNESS: 75-year-old woman well known by the office with a history of hypertension, hyperlipidemia, diabetes mellitus, and peripheral artery disease, as well as arthritis, has been doing well from a cardiac point of view. She has been seeing Dr. Moreno for pain management for her arthritis, degenerative joint disease and degenerative disc disease. About 10 days prior to the hospitalization, she had an injection and after that became asymptomatic, but on the day prior to admission, she started with excruciating back pain with radiation to the legs and on a scale of 0-10, it was a 10. At the same time, she was having chills at home. Because she was not getting better, she came to the hospital for further evaluation. Upon arrival, her vital signs revealed a blood pressure of 175/102, pulse 132, respirations 20, temperature 101.6 degrees Fahrenheit and her oxygen saturation was 94% on room air. She weighed 72.57 kg and she is 5.2. She was admitted for further management and monitoring and culture workup. On 07/31, grew Staphylococcus aureus, methicillin sensitive. She had an echocardiogram done and no vegetation was seen. Cardiology consult was called for possible transesophageal echocardiogram (GAIL) looking for vegetations. When I saw Mrs. Ynes Pollard, she was resting supine in bed in no acute distress. She was having back pain, but her symptoms have improved. She has not been having any fever and other blood work done on 08/01 has been negative. She denies any chest pain or palpitations. No nausea, vomiting, diarrhea, melena or hematemesis. She has no focal manifestation. 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 She has also had a compression fracture at the level of T12. There is no history of coronary artery disease, significant valvular heart disease, cardiomyopathy, sudden cardiac , lung disease. PAST SURGICAL HISTORY: Positive for appendectomy at the age of 16, exploratory laparotomy, hysterectomy, left breast lumpectomy, as well as left wrist fracture as a child, abdominal surgery for kidney stones, left carpal tunnel release, bilateral cataract extraction in 2012. MEDICATIONS AT HOME: - metformin 500 mg by mouth twice a day - ramipril 10 mg by mouth daily - prednisone 10 mg by mouth daily - Synthroid 100 mcg by mouth daily - metoprolol tartrate 25 mg by mouth twice a day FAMILY HISTORY: Positive for coronary artery disease and heart failure. SOCIAL HISTORY: Patient lives with her and she is a former smoker. She denies any ethyl alcohol (EtOH) abuse. She has five children, healthy. She has one dog. ADVANCED DIRECTIVES: The patient is FULL CODE. PHYSICAL EXAMINATION: Patient is alert and oriented, in no acute distress at rest. Examination of the head, ears, eyes, nose and throat: Atraumatic. Neck is supple. No jugular venous distention (JVD). No carotid bruits. The lungs were clear bilaterally on auscultation without any wheezing or crackles. Heart examination revealed normal S1 and S2 without gallops. The point of maximal impulse (PMI) is not displaced. There is no rub. There was a systolic murmur grade 1-2 over 6 at the lower left sternal border without any radiation. Abdomen is soft and nontender. Bowel sounds are active. Extremities reveal trace ankle edema. No cyanosis or clubbing. Neurological examination was limited, but no focal deficit noted in the upper extremities. LABORATORIES: CBC on 08/04/2016 revealed a WBC of 8.7, hemoglobin 10.7, hematocrit 31.4, and platelets 188,000. BMP on 08/04/2016 revealed a sodium of 143, potassium 3.6, chloride 104, CO2 29, BUN 15, creatinine 0.75, GFR 60, fasting glucose 119, calcium 8.5. Liver enzymes reveal a total bilirubin of 0.6, AST 26, ALT 36, alkaline phosphatase 54, total protein 6.4, albumin 2.7. Urinalysis on admission was positive for protein, glucose, blood, WBCs and RBCs, bacteria, and leukocyte esterase. Urine culture grew Staphylococcus aureus on 07/31/2016. Blood culture also grew Staphylococcus aureus, both methicillin sensitive. Echocardiogram done on 08/02/2016 revealed a normal global ventricular systolic function at 65-70%, mildly calcified aortic valve and mitral annulus, trace mitral regurgitation, trace to mild tricuspid regurgitation, mild pulmonary hypertension. There are some features of left ventricular diastolic dysfunction. No vegetations noted in that transthoracic echocardiogram. Renal ultrasound on admission was a negative study. Bladder was mildly distended, but no gross abnormalities. Chest x-ray on admission revealed no acute disease. CT of the abdomen and pelvis revealed no evidence of acute abdominal or pelvic pathology. Lumbar spine MRI revealed compression fracture at the level of L1, no evidence of abscess. Herniated disc was noted at the level of L5 and S1, diffuse bulge noted at the level of L4 and L5 and bilevel bulge noted at level of L3 and L4. Cervical spine MRI revealed multilevel spondylolisthesis, herniated disc and disc bulging. No evidence of abscess. Thoracic spine MRI revealed mild compression fracture at the level of L1, herniated disc at multi levels, but no evidence of abscess or abnormal enhancement. Brain MRI on 08/01/2016 revealed generalized atrophy, chronic ethmoidal and maxillary sinusitis and no evidence of acute intracranial pathology. Abdominal ultrasound on 08/02/2016 was negative. IMPRESSION: 75-year-old woman with above medical problems admitted with back pain and was found to have urosepsis with urine and blood positive for methicillin-susceptible Staphylococcus aureus. Patient has been stable and has been afebrile. Repeated culture, blood culture have been negative. Her transthoracic echocardiogram was not convincing of vegetation and there was a concern that patient would be having endocarditis. Infectious disease (ID) consult is pending until this coming 08/07/2016. Due to the fact that patient seems to be improving, I recommend to hold on the transesophageal echocardiogram until after being seen and evaluated by ID, Dr. Charles. This has been discussed with Dr. Leija and he will follow all that when he is back this coming Saturday. In the meantime, I will continue to monitor this admission as needed. Case was discussed with hospitalist and also the patient.
[2016-08-07] MEDS: ONDANSETRON 4MG/2ML VIAL (J2405) IV PRN (03:55)
[2016-08-07] MEDS: SLF 3 ML SYR IV SCH ×3 (03:56→21:38)
[2016-08-07] MEDS: CYCLOBENZAPRINE 5MG TABLET PO PRN ×2 (03:56→15:12)
[2016-08-07] MEDS: HEPARIN SOD (PORCINE) 5000 UNITS/ML VIAL SC SCH ×3 (03:56→21:38)
[2016-08-07] MEDS: LEVOTHYROXINE 0.1 MG TAB (100 MCG) PO SCH (03:56)
[2016-08-07 05:35] LABS: BASO # 0.1 K/mm3 (0.0-0.2); BASO % 1.5 % (0.0-1.0); EOS # 0.1 K/mm3 (0.0-0.50); EOS % 1.6 % (0.0-3.0); LARGE UNSTAINED CELL # 0.3 K/mm3 (0.0-0.4); LARGE UNSTAINED CELL % 4.5 % (0.0-4.0); LYMPH # 3.4 K/mm3 (1.5-4.5); LYMPH % 46.8 % (24.0-44.0); MEAN CORPUSCULAR HEMOGLOBIN 30.8 pg (27.0-33.0); MEAN CORPUSCULAR HGB CONC 32.4 g/dl (32.0-36.5); MEAN CORPUSCULAR VOLUME 94.9 fl (80.0-96.0); MONO # 0.4 K/mm3 (0.0-0.8); MONO % 6.4 % (0.0-5.0); NEUTROPHILS # 2.6 K/mm3 (1.8-7.7); NEUTROPHILS % 39.2 % (36.0-66.0); PLATELET COUNT, AUTOMATED 189 k/mm3 (150-450); RED CELL DISTRIBUTION WIDTH 14.4 % (11.5-14.5); WHITE BLOOD COUNT 6.5 K/mm3 (4.0-10.0)
[2016-08-07 05:58] VITALS: BP 140/67
[2016-08-07] MEDS: PERCOCET 5MG/325MG TAB PO PRN ×3 (06:08→20:35)
[2016-08-07 06:49] LABS: ALBUMIN 2.8 GM/DL (3.2-5.2); ALBUMIN/GLOBULIN RATIO 0.85 (1.00-1.93); ALKALINE PHOSPHATASE 50 U/L (45-117); ALT/SGPT 35 U/L (12-78); ANION GAP 10 MEQ/L (8-16); AST/SGOT 22 U/L (15-37); BILIRUBIN,TOTAL 0.7 MG/DL (0.2-1.0); BLOOD UREA NITROGEN 15 MG/DL (7-18); CALCIUM LEVEL 8.1 MG/DL (8.8-10.2); CARBON DIOXIDE LEVEL 27 MEQ/L (21-32); CHLORIDE LEVEL 102 MEQ/L (98-107); CREATININE FOR GFR 0.88 MG/DL (0.55-1.02); GLOMERULAR FILTRATION RATE > 60.0 (>39); GLUCOSE, FASTING 133 MG/DL (83-110); POTASSIUM SERUM 4.1 MEQ/L (3.5-5.1); SODIUM LEVEL 139 MEQ/L (136-145); TOTAL PROTEIN 6.1 GM/DL (6.4-8.2)
[2016-08-07] MEDS: HumaLOG INSULIN (NovoLOG) PER UNIT SC SCH ×4 (07:30→21:00)
[2016-08-07 08:00] VITALS: BP 162/68
[2016-08-07] MEDS: RAMIPRIL 5 MG CAP PO SCH (09:40)
[2016-08-07] MEDS: amLODIPine 5 MG TAB PO SCH (09:40)
[2016-08-07] MEDS: predniSONE 10 MG TAB PO SCH (09:40)
[2016-08-07] MEDS: METOPROLOL TART 25 MG TABLET PO SCH ×2 (09:40→21:37)
[2016-08-07 11:48] VITALS: BP 108/58
[2016-08-07] MEDS: KETOROLAC 30 MG/ML VIAL (J1885) IV PRN (12:18)
--- NOTE | 2016-08-07 14:25 | IPNPDOC ---
Text Note Date of Service The patient was seen on 08/07/16 at 14:07. NOTE Subjective: Patient is a 75 year old female with a PMHx of DM2, TIA, HTN, Hypothyroidism, Recurrent Nephrolithiasis, DDD, PUD who presented to the Er wtih severe lower back pain radiating to the R lower extremity. Patient follows Dr. Moreno for pain management. 10 days ago she received a corticosteroid injection which provided relief. She noted that after the effects wore off, her pain returned and was excruciating - preventing her from ambulating. Patient was also suspected of having a UTI in the ER and was given a dose of Ceftriaxone. Patient was found to have MSSA bacteremia from a urinary tract infection. TT ECHO was done and was negative. Repeat blood cultures were negative. Patient was seen and examined at the bedside. Has no acute complaints today. Objective Vitals (See below) General: Lying in bed, no acute distress, AAOx3 HEENT: NC, AT CVS: RRR, + S1S2 Lungs: Fair air entry b/l, - W/R/R Abdomen: Soft, ND, NT, +BSx4 Extremities: + PPx4, - edema, - calf tenderness Assessment and plan: 1. Sepsis 2/2 MSSA bacteremai 2/2 Urinary tract infection, vs. possible carbuncle? on L kidney - Clinically has no complaints, no fever / chills - MRI of cervical / lumbar / thoracic spine reveals no abscess - Blood culture 07/31: MSSA; Urine culture 07/31: Staph aureus - TT ECHO is negative for vegetations - Dr. Cecilio scott - no need for TE ECHO at this time, given patient is afebrile and repeat cultures negative - Repeat blood cultures 08/01 negative - CT abdomen / pelvis after infection clears to evaluate renal carbuncle vs. cyst - c/w Nafcillin - Will consult ID (Dr. Charles) today 2. History of CVA - baseline weakness on right side 3. DM2 - c/w insulin sliding scale 4. Hypothyroidism - c/w synthroid 5. HTN - c/w BP medications with holding parameters 6. History of recurrent nephrolithiasis 7. Spinal stenosis - Patient states she does know about her stenosis which was noted on the MRIs a - She prefers to follow-up outpatient with her spine surgeon rather than consulting our neurosurgeon - Discussed with Dr. Will, the orthopedic video production specialist who review the MRI; may need MRI with sedation or CT myelogram 8. RUE spasms - possibly 2/2 essential tremor or radiculopathy - evaluated by Neurology (Dr. Dyson) - appreciate their input 9. DVT prophylaxis - c/w heparin VS,Fishbone, I+O VS, Fishbone, I+O Laboratory Tests 08/07/16 04:59 Red Blood Count 3.22 L, Mean Corpuscular Volume 94.9, Mean Corpuscular Hemoglobin 30.8, Mean Corpuscular Hemoglobin Concent 32.4, Red Cell Distribution Width 14.4, Neutrophils (%) (Auto) 39.2, Lymphocytes (%) (Auto) 46.8 H, Monocytes (%) (Auto) 6.4 H, Eosinophils (%) (Auto) 1.6, Basophils (%) ( Auto) 1.5 H, Neutrophils # (Auto) 2.6, Lymphocytes # (Auto) 3.4, Monocytes # ( Auto) 0.4, Eosinophils # (Auto) 0.1, Basophils # (Auto) 0.1 08/07/16 06:14 Calcium Level 8.1 L, Aspartate Amino Transf (AST/SGOT) 22, Alanine Aminotransferase (ALT/SGPT) 35, Alkaline Phosphatase 50, Total Bilirubin 0.7 #, Total Protein 6.1 L, Albumin 2.8 L Vital Signs Date Time Temp Pulse Resp B/P Pulse Ox O2 Delivery O2 Flow Rate FiO2 08/07/16 12:17 20 08/07/16 11:48 97.0 88 108/58 94 Room Air 08/02/16 08:00 2.0 I&O- Last 24 Hours up to 6 AM 08/07/16 06:00 Intake Total 1080 ml Output Total 1625 ml Balance -545 ml KEON HERNANDEZ MD Aug 07, 2016 14:09
--- NOTE | 2016-08-07 15:08 | REP ---
MRI CERVICAL SPINE WITHOUT CONTRAST: HISTORY: Rule out abscess. COMPARISON: 08/01/2016 A disc bulge is present at the C3-4 level. There are 1.5 mm of anterior subluxation of C3 on C4. There is minimal effacement of the thecal sac without spinal cord compression. The C3 neural foramina are patent. A disc bulge is present at the C4-5 level. There is minimal effacement of the thecal sac without spinal cord compression. The C4 neural foramina are patent. A disc bulge with associated osteophyte formation is present at the C5-6 level. There is moderate effacement of the thecal sac without spinal cord compression. Bilateral uncinate process hypertrophy is present. This produces minimal and mild narrowing of the right and left C5 neural foramina respectively. A disc bulge is present at the C6-7 level. There is minimal effacement of the thecal sac without spinal cord compression. Uncinate process hypertrophy is present on the left. This produces minimal narrowing on the left C6 neural foramen. The right C6 neural foramen is patent. There is no other disc bulge or herniation. The remaining neural foramina are patent. The spinal cord is normal in signal intensity. There is no intradural extramedullary lesion. The C5-6 intervertebral disc is decreased in height consistent with disc degeneration. Normal signal intensity is present in the cervical vertebral bodies. IMPRESSION: There is cervical spondylosis at the C3-4 through C6-7 levels without spinal cord compression. There is no change compared to the previous study. Signed by Kingsley Blackmon MD 08/07/2016 03:11 P
[2016-08-07 16:00] VITALS: BP 136/62
[2016-08-07] MEDS: MORPHINE 2 MG/ML 1ML SYRINGE IV PRN ×2 (17:58→21:37)
--- NOTE | 2016-08-07 19:53 | CR ---
DATE OF CONSULTATION: August 06, 2016. REFERRING PHYSICIAN: Dr. Russell Maria. REASON FOR CONSULTATION: Right arm spasms. HISTORY OF PRESENT ILLNESS: Ynes Pollard is a 75-year-old woman with history of chronic low back pain and pain radiating down her right leg, who had epidural injection by Dr. Moreno 10 days ago. The patient stated that for 10 days she was asymptomatic. However, yesterday she was reading newspaper and felt 10/10 back pain radiating down her right leg. Her back pain has been going on for the last two years. She felt that pain was so severe that she could not walk. The patient denies any urinary or bowel incontinence. She denies any neck pain. She has occasional mild headaches. For the last one year, she has spasms of her right arm along with shaking. Her right arm spasm and shaking are aggravated by pain and stress. Her right arm spasm and shaking have been getting worse. She had on a daily basis for the last one week. She denies any falls or loss of consciousness, head injuries, dysphagia, dysarthria, diplopia or urinary incontinence. DIAGNOSTIC STUDIES: Her MRI scan of brain showed small vessel ischemic disease of brain. MRI cervical spine, thoracic spine and lumbosacral spine showed multilevel degenerative disc disease and mild to moderate cervical stenosis and lumbosacral stenosis. She has bilateral foraminal narrowing at C5-C6, L4-L5 levels. PAST MEDICAL/SURGICAL HISTORY: 1. Type 2 diabetes. 2. History of stroke four years ago which affected right side of her body. 3. Hypertension. 4. Kidney stones. 5. Chronic low back pain due to thoracic and lumbosacral disc disease for which she was seen by pain management and [facility]. 6. Peptic ulcer disease. 7. Left ophthalmic artery aneurysm. 8. T12 compression fracture. 9. Left wrist fracture. 10. Appendectomy. 11. Removal of kidney stones by surgery. 12. Left tibial fracture. 13. Hysterectomy. 14. Breast lumpectomy on left side. 15. Cataract surgery. SOCIAL HISTORY: She lives with . She denies smoking, alcohol or illicit drugs. FAMILY HISTORY: Brother had heart disease. Father had laryngeal cancer. Mother had congestive heart failure. ALLERGIES: SULFA. HOME MEDICATIONS: - Synthroid 100 mcg by mouth daily - metformin 500 mg by mouth twice a day - prednisone 10 mg by mouth daily - ramipril 10 mg by mouth daily - potassium 99 mg by mouth twice a day per electronic medical record, but I am not sure about this dose REVIEW OF SYSTEMS: All systems were reviewed and found to be noncontributory except as mentioned in history of present illness. PHYSICAL EXAMINATION: VITAL SIGNS: Temperature 98.1, pulse 101, respiratory 18, blood pressure 177/74, 94% saturation on room air. HEART: Regular rate and rhythm. LUNGS: Clear to auscultation. ABDOMEN: Soft, nontender, nondistended. NEUROLOGIC EXAMINATION: The patient is awake, alert, oriented to place, person and time. Normal speech comprehension and repetition. Extraocular muscles are intact. No facial weakness. Tongue and uvula are midline. 5/5 strength in all four extremities except right upper extremity and lower extremity where she has intermittent activation with pain. Deeper reflexes 2+ throughout except ankles where they are absent. She has decreased cold, pinprick, vibration sensation. There is no dysmetria. She has bilateral arm postural and action tremor. ASSESSMENT: 1. Benign essential tremor. 2. Multilevel cervical, thoracic and lumbosacral degenerative disc disease. 3. Possible right cervical and lumbosacral radiculopathy. 4. Suspected peripheral neuropathy. 5. Chronic low back pain. 6. History of stroke which affected her right side of her body four years ago. She may have mild residual symptoms. PLAN 1. The patient will see orthopedic surgery for her cervical spine. She is already follows at pain management and has seen orthopedics at [facility] in the past. 2. If her essential tremor persists despite adequate treatment of her pain, we may consider primidone 25 mg by mouth twice a day and this dose can be slowly increased. 3. Aspirin 81 mg by mouth daily should be considered due to history of her previous stroke and transient ischemic attack (TIA). She also has history of diabetes. 4.Physical and occupational therapy. She should continue pain management with Dr. Moreno.
[2016-08-07 20:55] VITALS: BP 144/65
[2016-08-08 00:45] VITALS: BP 154/67
[2016-08-08] MEDS: NAFCILLIN SOD 2 GM in D5W MINI-BAG PLUS 100 ML IV SCH ×4 (00:45→12:59)
[2016-08-08] MEDS: MORPHINE 2 MG/ML 1ML SYRINGE IV PRN ×8 (00:46→23:52)
[2016-08-08] MEDS: ONDANSETRON 4MG/2ML VIAL (J2405) IV PRN (00:53)
[2016-08-08] MEDS: CYCLOBENZAPRINE 5MG TABLET PO PRN ×3 (01:54→21:11)
[2016-08-08 04:05] VITALS: BP 141/64
--- NOTE | 2016-08-08 04:32 | CR ---
DATE OF CONSULTATION: 08/07/2016 CONSULTATION REPORT FOR: Hospitalist Service REASON FOR CONSULTATION: Evaluation of Staphylococcus aureus bacteremia with severe low back pain radiating to right lower extremity. HISTORY OF PRESENT ILLNESS: Mrs. Pollard is a 75-year-old female with a history of degenerative disc disease and chronic pain who follows up at the pain clinic with Dr. Moreno and received epidural injections. Most recently about 10 days ago, she had received from what she describes to me an injection into her right hip, seems to me like it is a sacroiliac joint. She had complete relief for about six days of pain, but the day of admission the patient had excruciating pain along with fever and pain was radiating down to her right leg and was 10/ 10. It was worse than any pain she has had before. She could not ambulate. She had some fevers. The patient denied any loss of bladder or bowel control. No numbness. She complained of chills, sweats and had a fever of 101.1. The patient was started on IV antibiotic on admission. Blood cultures were obtained, they were positive for MSSA on 07/31. Urine cultures were positive as well. Urinalysis had 141 white cells. On 08/01, the next day, blood cultures were repeated and were negative. Her white count the first two days of admission ranged between 13 and 15,000, but then has normalized since then. CRP was 6.76. The patient was switched from vancomycin and Zosyn on admission to nafcillin on 08/03 which she has received since then. She has had multiple imaging studies including a lumbar MRI, thoracic MRI, cervical MRI all showed surgical spondylosis, degenerative disc disease, but no evidence of infection. The patient also complains of a new tremor of the right arm which she states was not there before her hospitalization although she has had a stroke in the past, but she has no control over her right arm, myoclonic jerks, and tremors. She has not been seen by neurology although she sees Dr. Garvey as an outpatient for her stroke. She has been treated for a renal carbuncle. According to review of a CT abdomen done an addendum was added by Dr. Clark who felt that she had a 2.7 cm left kidney low-density lesion that could be an abscess or pyelonephritis and a followup was recommended. She denied any fever or chills or pain in the left flank. She states she has had kidney stones on the right side. PAST MEDICAL HISTORY: Significant for hypertension, diabetes, hypothyroidism, history of TIA, vertebral artery stenosis, MRA done on 04/18 shows vertebral and basilar intracranial stenosis, hypothyroidism, recurrent nephrolithiasis since the age of 17, degenerative disc disease, thoracic and lumbar spine, peptic ulcer disease, left ophthalmic artery aneurysm, MRA in 2011 shows a 1.8 mm aneurysm, and cataract surgery both eyes in 2012. PAST SURGICAL HISTORY: T12 compression fracture, left wrist fracture, appendectomy, removal of kidney stones, left tibia fracture, exploratory laparotomy and hysterectomy, left breast lumpectomy, right carpal tunnel release. Colonoscopy 2012 and endoscopy unremarkable. SOCIAL HISTORY: She lives with her has not traveled. She has five children. She does not smoke or drink. FAMILY HISTORY: Coronary artery disease in a brother and laryngeal cancer in the father. REVIEW OF SYSTEMS: The patient complains still of severe back pain mostly in the sacroiliac joint radiating to the right leg to the ankle which seems to be worse for her than her usual. She denies any flank pain, urinary symptoms. No nausea , vomiting or diarrhea. No abdominal pain. She also complained of significant tremor of the right hand. PHYSICAL EXAMINATION: VITAL SIGNS: Temperature is 97.9, pulse 83, respirations 18, blood pressure 132/62, O2 sat 93% on room air. T-max on 08/01 was 101.1. Heart: Normal S1-S2 with a faint systolic ejection murmur 1/6. Lungs are clear. No wheezes or rhonchi. Abdomen: Soft, obese, nontender. No visceromegaly. Back: No CVA or lumbosacral tenderness. She has excruciating right sacral iliac tenderness. Extremities: Trace ankle edema. Hip joint normal range of motion. Knee joints normal range of motion. Neurologic: Exam she has a faint tight facial droop. She has a significant tremor of the right upper extremity. She has a right weak grasp. A mild stutter. LABORATORY DATA: O 07/31, two sets of blood cultures were positive for MSSA. Urine culture was positive for MSSA on . Two sets of blood cultures were negative. Transthoracic echocardiogram was done by Dr. Hernandes showed normal left ventricular size, normal left atrial size. No pericardial effusion and minimal calcified aortic valve and superior vena cava mildly enlarged. There was no suggestion of vegetation and he saw the patient in consultation and he did not feel that a transesophageal echo was needed. ALLERGIES: SULFA. MEDICATIONS: - metoprolol 25 mg by mouth twice a day - Norvasc 5 mg by mouth daily - Percocet two tablets by mouth every four hours as needed - nafcillin 2 grams IV every four hours - cyclobenzaprine 5 mg by mouth every six hours as needed - nystatin to the abdominal area twice a day - prednisone 10 mg by mouth daily - ramipril 10 mg daily - insulin sliding scale - thyroxine 0.1 mg daily - Tylenol as needed - Zofran as needed Urinalysis had 141 white cells on admission, and 27 red cells. IMAGING STUDIES: Brain MRI shows generalized age appropriate atrophy, bilateral periventricular and subcortical white matter changes, chronic ethmoid and maxillary sinusitis no evidence of acute pathology. Abdominal ultrasound done on 08/02 shows no underlying focal election and no other soft tissue abnormalities. Cervical MRI shows multiple disc bulges C3-C4, 1 mm bulge C4-C5, broad-based herniated disc C6-7, 1 mL bulge multiple level spondylosis. MRI of the lumbar spine showed no evidence of diskitis. No abscess noted. Normal enhancement; was done with contrast. There is chronic compression fracture at L1 and the central herniated disc at L5-S1 and some disc bulge at L3, L4 and L5. IMPRESSION: This is a 75-year-old female who was admitted with sepsis Staphylococcus aureus positive cultures on urine and blood MSSA. The patient has responded appropriately to IV antibiotics currently on nafcillin 2 grams every four hours. The source of infection is felt to be related to a carbuncle on the right kidney, although her pain is mostly localized to her right hip, and at this infection happened after she had an injection into her possibly sacral iliac joint. She describes the injections in her right hip at Dr. Moreno's office. This is a place of tenderness that she still has significant symptoms. She has been on IV antibiotics for seven days with marked improvement. Her CRP has dropped to from 62 and her blood cultures have returned negative. Her white count is normal. She is afebrile. PLAN: I am still concerned about the hip pain and the source of infection there. I would continue with IV nafcillin. I would suggest continuing two weeks of antibiotics intravenously and the patient is ready for discharge. She could be switched to Rocephin 2 grams daily or Kefzol 2 grams IV every eight hours if more convenient for home IV antibiotics OR She could be kept on nafcillin to a continuous infusion with a PICC line. I will discuss that with her primary care provider or the hospitalist on board. I will review CT imaging and MRI with radiology tomorrow as I am still worried about the source of infection on her back pain. I will obtain records from Dr. Moreno of her most recent visit regarding what kind of injection she has received at her last visit. Obtain sed rate in the morning. MTDD
[2016-08-08] MEDS: HEPARIN SOD (PORCINE) 5000 UNITS/ML VIAL SC SCH ×3 (05:41→21:11)
[2016-08-08] MEDS: LEVOTHYROXINE 0.1 MG TAB (100 MCG) PO SCH (05:41)
[2016-08-08] MEDS: SLF 3 ML SYR IV SCH ×3 (05:42→21:12)
[2016-08-08 07:30] VITALS: BP 159/70
[2016-08-08] MEDS: HumaLOG INSULIN (NovoLOG) PER UNIT SC SCH ×4 (07:30→21:00)
[2016-08-08] MEDS: KETOROLAC 30 MG/ML VIAL (J1885) IV PRN (08:12)
[2016-08-08] MEDS: predniSONE 10 MG TAB PO SCH (09:06)
[2016-08-08] MEDS: RAMIPRIL 5 MG CAP PO SCH (09:07)
[2016-08-08] MEDS: amLODIPine 5 MG TAB PO SCH (09:07)
[2016-08-08] MEDS: METOPROLOL TART 25 MG TABLET PO SCH ×2 (09:07→21:12)
[2016-08-08 12:00] VITALS: BP 148/70
[2016-08-08] MEDS: PERCOCET 5MG/325MG TAB PO PRN ×3 (12:10→19:53)
--- NOTE | 2016-08-08 13:53 | IPNPDOC ---
Text Note Date of Service The patient was seen on 08/08/16 at 13:48. NOTE Subjective: Patient is a 75 year old female with a PMHx of DM2, TIA, HTN, Hypothyroidism, Recurrent Nephrolithiasis, DDD, PUD who presented to the Er wtih severe lower back pain radiating to the R lower extremity. Patient follows Dr. Moreno for pain management. 10 days ago she received a corticosteroid injection which provided relief. She noted that after the effects wore off, her pain returned and was excruciating - preventing her from ambulating. Patient was also suspected of having a UTI in the ER and was given a dose of Ceftriaxone. Patient was found to have MSSA bacteremia from a urinary tract infection. TT ECHO was done and was negative. Repeat blood cultures were negative. Patient was seen and examined at the bedside. Is complaining of right back / buttock pain that is radiating down her leg. Objective Vitals (See below) General: Lying in bed, no acute distress, AAOx3 HEENT: NC, AT CVS: RRR, + S1S2 Lungs: Fair air entry b/l, - W/R/R Abdomen: Soft, ND, NT, +BSx4 Extremities: + PPx4, - edema, - calf tenderness Back: no paravertebral tenderness, tenderness at spinous process of L5, tenderness at right ischial tuberosity, Assessment and plan: 1. Sepsis 2/2 MSSA bacteremia 2/2 Urinary tract infection, possibly 2/2 diskitis ? - Complaints of back pain, no fever / chills - MRI of cervical / lumbar / thoracic spine reveals no abscess - Blood culture 07/31: MSSA; Urine culture 07/31: Staph aureus - TT ECHO is negative for vegetations - Dr. Hernandes following - no need for TE ECHO at this time, given patient is afebrile and repeat cultures negative - Repeat blood cultures 08/01 negative - CT abdomen / pelvis after infection clears to evaluate renal carbuncle vs. cyst - c/w Nafcillin - ID on consult (Dr. Charles) - appreciate their input --- Plan for review of radiology with Dr. Moreno and if not signs of infection, will need to get GAIL --- will need Antibiotics for 2 weeks with Ceftriaxone 2g q24h --- will need PICC line placement; awaiting possibility of GAIL 2. History of CVA - baseline weakness on right side 3. DM2 - c/w insulin sliding scale 4. Hypothyroidism - c/w synthroid 5. HTN - c/w BP medications with holding parameters 6. History of recurrent nephrolithiasis 7. Spinal stenosis - Patient states she does know about her stenosis which was noted on the MRIs a - She prefers to follow-up outpatient with her spine surgeon rather than consulting our neurosurgeon - Discussed with Dr. Will, the orthopedic credit risk specialist who review the MRI; may need MRI with sedation or CT myelogram 8. RUE spasms - possibly 2/2 essential tremor or radiculopathy - evaluated by Neurology (Dr. Dyson) - appreciate their input 9. DVT prophylaxis - c/w heparin VS,Fishbone, I+O VS, Fishbone, I+O Vital Signs Date Time Temp Pulse Resp B/P Pulse Ox O2 Delivery O2 Flow Rate FiO2 08/08/16 12:10 20 08/08/16 09:07 84 08/08/16 09:07 157/74 08/08/16 07:52 Room Air 08/08/16 07:30 97.0 97 08/02/16 08:00 2.0 I&O- Last 24 Hours up to 6 AM 08/08/16 06:00 Intake Total 1360 ml Output Total 1250 ml Balance 110 ml KEON HERNANDEZ MD Aug 08, 2016 13:53
[2016-08-08 16:00] VITALS: BP 162/68
[2016-08-08] MEDS: levETIRAcetam 750 MG in D5W 100 ML IV SCH (16:12)
[2016-08-08 20:00] VITALS: BP 138/61
--- NOTE | 2016-08-08 20:00 | IPN ---
DATE: 08/08/2015 Mrs. Pollard was very upset today because she was supposed to have a peripherally inserted central catheter (PICC) line for home intravenous (IV) antibiotics. That was cancelled. Her transesophageal echocardiogram (GAIL) was also cancelled. She was upset about her plan of care. Not sure about her treatment. She also is having uncontrollable hand movement. While Dr. Garvey was rounding, I asked him to see the patient again for a second opinion. He felt that that could be related to a partial seizure and therefore has ordered an electroencephalogram (EEG) and IV Keppra. The patient lost her IV and has been a difficult venous access. A PICC line has been ordered. The patient continues complaining of severe right hip pain, which has gotten worse through this admission over the past week. I have obtained her records from Dr. Moreno's office. The patient had a sacroiliac injection of the right hip joint on July 20. 40 mg of Solu-Medrol and 5 mL of bupivacaine were injected into the right hip joint. Patient stated that she had 1 week of relief, but then the pain has come back excruciating worse than ever before. She was seen in followup on July [address] Moreno's physician client account assistant, who asked her to go to the emergency room. That pain has continued to get worse. PHYSICAL EXAMINATION: Temperature is 96.8, respirations 28, blood pressure stable. HEART: Normal S1, S2. No murmurs. LUNGS: Clear. No wheezes, rales, or rhonchi. ABDOMEN: Obese, soft, nontender. Right buttock: severe tenderness along the sacroiliac joint. Hip flexion is normal. Knee flexion is normal. EXTREMITIES: Trace edema right arm. Uncontrollable tremors with myoclonic jerks. LABORATORY DATA: Sed rate is 58. Sodium was 39, potassium 4.1, chloride 102, bicarbonate 27, BUN 15, creatinine 0.8, CRP 2.46. IMPRESSION: 1. Staphylococcus aureus sepsis. Methicillin-sensitive Staphylococcus aureus (MSSA) with positive urine culture, but the patient did not have urinary symptoms. I doubt the patient has pyelonephritis. I am still very concerned about her right buttock pain and a possibility of an abscess, possibly in the sacroiliac joint. I have discussed case with Dr. Clark, who has reviewed her CT abdomen and pelvis as well as MRI of the lumbar spine, and he recommended a followup MRI of the sacroiliac joint to rule out this possibility. 2. Right arm tremors and myoclonic jerks, rule out partial seizure. Dr. Garvey has ordered an electroencephalogram (EEG) and intravenous (IV) Keppra PLAN: PICC line was ordered for today. IV nafcillin was switched to cephazolin 2 grams every 8 hours in case she goes home. That would make it easier for discharge and more convenient for the patient and less costly. Transesophageal echo is currently on hold, as I am not convinced the patient has endocarditis but more of sacroiliac source of the infection. The bacteremia was transient and resolved within less than 24 hours, which is not consistent with endocarditis. MRI of the sacroiliac joint will be scheduled for tomorrow
[2016-08-08] MEDS: PREPARATION H SUPP (HEMORRHOID) PR SCH (21:00)
[2016-08-09] VITALS (7 sets, daily range): BP systolic 134–180; BP diastolic 59–92
[2016-08-09] MEDS: PERCOCET 5MG/325MG TAB PO PRN ×4 (00:51→20:56)
[2016-08-09] MEDS: MORPHINE 2 MG/ML 1ML SYRINGE IV PRN ×7 (01:49→19:43)
[2016-08-09] MEDS: levETIRAcetam 750 MG in D5W 100 ML IV SCH ×2 (03:58→15:22)
[2016-08-09] MEDS: CYCLOBENZAPRINE 5MG TABLET PO PRN ×2 (03:59→19:43)
[2016-08-09] MEDS: LEVOTHYROXINE 0.1 MG TAB (100 MCG) PO SCH (05:28)
[2016-08-09] MEDS: HEPARIN SOD (PORCINE) 5000 UNITS/ML VIAL SC SCH ×3 (05:29→20:57)
[2016-08-09] MEDS: SLF 3 ML SYR IV SCH ×3 (05:30→20:57)
[2016-08-09] MEDS ORDERED: LORazepam 2 MG/ML VIAL (J2060) IV ONE (08:00)
[2016-08-09 08:14] LABS: BASO # 0.1 K/mm3 (0.0-0.2); BASO % 1.2 % (0.0-1.0); EOS # 0.2 K/mm3 (0.0-0.50); EOS % 1.8 % (0.0-3.0); LARGE UNSTAINED CELL # 0.5 K/mm3 (0.0-0.4); LARGE UNSTAINED CELL % 5.5 % (0.0-4.0); LYMPH # 4.3 K/mm3 (1.5-4.5); LYMPH % 47.3 % (24.0-44.0); MEAN CORPUSCULAR VOLUME 93.8 fl (80.0-96.0); MONO # 0.4 K/mm3 (0.0-0.8); MONO % 4.4 % (0.0-5.0); NEUTROPHILS # 3.3 K/mm3 (1.8-7.7); NEUTROPHILS % 39.9 % (36.0-66.0); PLATELET COUNT, AUTOMATED 250 k/mm3 (150-450); RED CELL DISTRIBUTION WIDTH 14.9 % (11.5-14.5); WHITE BLOOD COUNT 8.2 K/mm3 (4.0-10.0)
[2016-08-09] MEDS: HumaLOG INSULIN (NovoLOG) PER UNIT SC SCH ×4 (08:28→20:56)
[2016-08-09] MEDS: METOPROLOL TART 25 MG TABLET PO SCH ×2 (08:29→20:56)
[2016-08-09] MEDS: amLODIPine 5 MG TAB PO SCH (08:29)
[2016-08-09] MEDS: RAMIPRIL 5 MG CAP PO SCH (08:29)
[2016-08-09] MEDS: predniSONE 10 MG TAB PO SCH (08:30)
[2016-08-09] MEDS: PREPARATION H SUPP (HEMORRHOID) PR SCH ×3 (08:30→20:56)
[2016-08-09 08:35] LABS: ALBUMIN 2.6 GM/DL (3.2-5.2); ALBUMIN/GLOBULIN RATIO 0.72 (1.00-1.93); ALKALINE PHOSPHATASE 51 U/L (45-117); ALT/SGPT 28 U/L (12-78); ANION GAP 8 MEQ/L (8-16); AST/SGOT 16 U/L (15-37); BILIRUBIN,TOTAL 0.3 MG/DL (0.2-1.0); BLOOD UREA NITROGEN 13 MG/DL (7-18); CALCIUM LEVEL 8.2 MG/DL (8.8-10.2); CARBON DIOXIDE LEVEL 28 MEQ/L (21-32); CHLORIDE LEVEL 105 MEQ/L (98-107); CREATININE FOR GFR 0.86 MG/DL (0.55-1.02); GLOMERULAR FILTRATION RATE > 60.0 (>39); GLUCOSE, FASTING 114 MG/DL (83-110); MAGNESIUM LEVEL 2.1 MG/DL (1.8-2.4); SODIUM LEVEL 141 MEQ/L (136-145); TOTAL PROTEIN 6.2 GM/DL (6.4-8.2)
--- NOTE | 2016-08-09 12:22 | IPNPDOC ---
Text Note Date of Service The patient was seen on 08/09/16 at 12:10. NOTE Subjective: Patient is a 75 year old female with a PMHx of DM2, TIA, HTN, Hypothyroidism, Recurrent Nephrolithiasis, DDD, PUD who presented to the Er wtih severe lower back pain radiating to the R lower extremity. Patient follows Dr. Moreno for pain management. 10 days ago she received a corticosteroid injection which provided relief. She noted that after the effects wore off, her pain returned and was excruciating - preventing her from ambulating. Patient was also suspected of having a UTI in the ER and was given a dose of Ceftriaxone. Patient was found to have MSSA bacteremia from a urinary tract infection. TT ECHO was done and was negative. Repeat blood cultures were negative. Patient was seen and examined at the bedside. Today she noted she has been starting to experience R lower abdominal pain in addition to her right back / buttock pain. Objective Vitals (See below) General: Lying in bed, no acute distress, AAOx3 HEENT: NC, AT CVS: RRR, + S1S2 Lungs: Fair air entry b/l, - W/R/R Abdomen: Soft, ND, Tenderness at R lower quadrant, +BSx4 Extremities: + PPx4, - edema, - calf tenderness Back: no paravertebral tenderness, tenderness at spinous process of L5, tenderness at right ischial tuberosity, Assessment and plan: 1. Sepsis 2/2 MSSA bacteremia 2/2 Urinary tract infection, possibly 2/2 diskitis / abscess - from injection - Complaints of back pain, no fever / chills - MRI of cervical / thoracic / lumbar spine reveals no abscess - Blood culture 07/31: MSSA; Urine culture 07/31: Staph aureus - TT ECHO is negative for vegetations - Dr. Hernandes following - no need for TE ECHO at this time, given patient is afebrile and repeat cultures negative - Repeat blood cultures 08/01 negative - CT abdomen / pelvis after infection clears to evaluate renal carbuncle vs. cyst - c/w Nafcillin - ID on consult (Dr. Charles) - appreciate their input --- Imaging was reviewed; will go for MRI of right sacroiliac joint for evaluation of abscess --- If imaging negative will repeat CT abdomen with contrast (re: R lower quadrant abdominal pain) --- will need Antibiotics for 2 weeks with Ceftriaxone 2g q24h / Cefazolin 2g IV q8h --- will have PICC line placed today 2. History of CVA - baseline weakness on right side 3. DM2 - c/w insulin sliding scale 4. Hypothyroidism - c/w Synthroid 5. HTN - BP elevated today; possibly 2/2 pain - c/w metoprolol and ramipril with holding parameters - will re-assess BP after morning doses and adjust if still elevated 6. History of recurrent nephrolithiasis - complains of R lower quadrant pain - will check urinalysis for RBC 7. Spinal stenosis - Patient states she does know about her stenosis which was noted on the MRIs a - She prefers to follow-up outpatient with her spine surgeon rather than consulting our neurosurgeon - Discussed with Dr. Will, the orthopedic economic specialist who review the MRI; may need MRI with sedation or CT myelogram 8. RUE spasms - possibly 2/2 partial seizure, essential tremor or radiculopathy - evaluated by Neurology (Dr. Dyson) - appreciate their input - will go for EEG 9. DVT prophylaxis - c/w heparin VS,Fishbone, I+O VS, Fishbone, I+O Laboratory Tests 08/09/16 07:59 Calcium Level 8.2 L, Aspartate Amino Transf (AST/SGOT) 16, Alanine Aminotransferase (ALT/SGPT) 28, Alkaline Phosphatase 51, Total Bilirubin 0.3 #, Total Protein 6.2 L, Albumin 2.6 L, Red Blood Count 3.13 L, Mean Corpuscular Volume 93.8, Mean Corpuscular Hemoglobin 30.0, Mean Corpuscular Hemoglobin Concent 32.0, Red Cell Distribution Width 14.9 H, Neutrophils (%) (Auto) 39.9, Lymphocytes (%) (Auto) 47.3 H, Monocytes (%) (Auto) 4.4, Eosinophils (%) (Auto) 1.8, Basophils (%) (Auto) 1.2 H, Neutrophils # (Auto) 3.3, Lymphocytes # (Auto) 4.3, Monocytes # (Auto) 0.4, Eosinophils # (Auto) 0.2, Basophils # (Auto) 0.1 Vital Signs Date Time Temp Pulse Resp B/P Pulse Ox O2 Delivery O2 Flow Rate FiO2 08/09/16 10:42 18 Room Air 08/09/16 09:00 166/65 08/09/16 08:29 80 08/09/16 08:00 97.5 95 I&O- Last 24 Hours up to 6 AM 08/09/16 06:00 Intake Total 970 ml Output Total 600 ml Balance 370 ml KEON HERNANDEZ MD Aug 09, 2016 12:19
--- NOTE | 2016-08-09 15:07 | REP ---
MRI PELVIS WITH AND WITHOUT CONTRAST: TECHNIQUE: Axial T1, T2, fat sat, coronal T1, STIR, Sagittal T2 fat sat, post IV gadolinium axial and coronal T1 fat sat with the intravenous administration of 14 mL of gadolinium. The visualized osseous structures demonstrate normal marrow signal There is no bone marrow edema. Minimal increased signal is seen at the sacroiliac joints without significant enhancement compatible with mild arthritic change. I do not see abnormal enhancement of any of the pelvic bones, with no evidence of osteomyelitis. There is mild to moderate soft tissue edema posterior to the lower lumbar spine and sacrum with some mild scattered subtle enhancement suggesting dependent edema. No abscess is seen. No pelvic adenopathy or mass is seen. . The urinary bladder appears unremarkable. No free fluid is seen in the pelvis. IMPRESSION: Mild to moderate soft tissue edema in a subcutaneous location posterior to the lower lumbar spine and sacrum. No abscess or evidence of osteomyelitis. Signed by James Funez MD 08/09/2016 03:25 P
[2016-08-09] MEDS ORDERED: NS 1,000 ML IV SCH (16:30)
[2016-08-09] MEDS ORDERED: GASTROGRAFIN SOLUTION 30ML PO ONE (16:30)
[2016-08-09] MEDS: SODIUM CHLORIDE 0.9% INJ 10 ML SYR IV SCH (16:53)
[2016-08-09] MEDS ORDERED: GASTROGRAFIN SOLUTION 30ML (Q9963) PO ONE (17:00)
--- NOTE | 2016-08-09 17:16 | IPN ---
DATE: 08/09/2016 INFECTIOUS DISEASE PROGRESS NOTE Mrs. Pollard is doing much better today. She went down for a peripherally inserted central catheter (PICC) line insertion which was uneventful and had also a pelvic MRI which only showed dependent edema. There was no evidence of infection or abscess. The patient still complains of significant low back pain, mostly in the right hip area radiating to the leg. She states that she is not able to go home with this significant amount of pain. Usually at the pain clinic she does not receive any narcotics. She is not on any chronic pain medication except for muscle relaxant and anti-inflammatories as needed. She does not take gabapentin or Lyrica. Here, she has taken at least 3-4 Percocet a day and morphine 12 mg along with Flexeril 5 mg four times a day. Since she has been started on Keppra IV, her right arm myoclonic jerks have greatly improved. She has no fever or chills. No nausea, vomiting or diarrhea. LABORATORY DATA: White count is 8.2, hemoglobin 9.4, hematocrit 29.4, platelets 250. Sodium 141, potassium 4, chloride 105, bicarbonate 28, BUN 13, creatinine 0.86, glucose 114, calcium 8.2, AST 16, ALT 28, total protein 6.2, albumin 2.6. Blood cultures on 07/31/2016 were positive at 12:41, and they were negative at 9:00 a.m. on 08/01/2016. Pelvic MRI showed mild to moderate soft tissue edema in a subcutaneous location posterior to the lower lumbar spine and sacrum, more suggestive of dependent edema. No abscess or evidence of osteomyelitis. IMPRESSION: 1. Staphylococcus aureus sepsis, methicillin-sensitive Staphylococcus aureus (MSSA) with positive urine culture and evidence of a renal carbuncle, most likely source is kidney. At this point, there is no evidence of infection in the lower back in spite of this significant back pain. Transient bacteremia for less than 24 hours does not suggest endocarditis. The patient had cultures that were negative within 18 hours of admission. 2. History of degenerative disc disease and sacroiliac joint pain with worsening pain since the past 2 weeks when she had a steroid injection in the right sacroiliac joint. I would suggest consulting with the pain clinic for pain management and add gabapentin to her medication as the patient has needed a lot of narcotics, which is something she does not usually take and wants to avoid. 3. 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 On Keppra, followed up by neurology. 4. History of recurrent nephrolithiasis with increasing abdominal pain. Today, she states that this is similar to her pain that she gets with kidney stones. PLAN: Continue IV Kefzol; end of treatment if everything continues to be negative would be 08/15/2016. Will obtain CRP and sedimentation rate in the morning. I would not pursue a transesophageal echocardiogram (GAIL) as her bacteremia was transient, especially if ESR and CRP continued to improve. MTDD
[2016-08-10] VITALS (7 sets, daily range): BP systolic 137–173; BP diastolic 62–80
[2016-08-10] MEDS: MORPHINE 2 MG/ML 1ML SYRINGE IV PRN ×7 (00:19→20:48)
[2016-08-10] MEDS: PERCOCET 5MG/325MG TAB PO PRN ×4 (01:28→23:24)
[2016-08-10] MEDS: levETIRAcetam 750 MG in D5W 100 ML IV SCH ×2 (04:25→15:17)
[2016-08-10] MEDS: SLF 3 ML SYR IV SCH ×3 (06:06→20:47)
[2016-08-10] MEDS: LEVOTHYROXINE 0.1 MG TAB (100 MCG) PO SCH (06:06)
[2016-08-10] MEDS: HEPARIN SOD (PORCINE) 5000 UNITS/ML VIAL SC SCH ×3 (06:07→20:47)
[2016-08-10] MEDS: SODIUM CHLORIDE 0.9% INJ 10 ML SYR IV SCH ×2 (06:07→17:23)
[2016-08-10 06:23] LABS: BASO # 0.1 K/mm3 (0.0-0.2); BASO % 0.7 % (0.0-1.0); EOS # 0.2 K/mm3 (0.0-0.50); EOS % 2.6 % (0.0-3.0); LARGE UNSTAINED CELL # 0.4 K/mm3 (0.0-0.4); LYMPH # 3.9 K/mm3 (1.5-4.5); LYMPH % 46.7 % (24.0-44.0); MEAN CORPUSCULAR HGB CONC 32.1 g/dl (32.0-36.5); MEAN CORPUSCULAR VOLUME 93.7 fl (80.0-96.0); MONO # 0.4 K/mm3 (0.0-0.8); MONO % 5.1 % (0.0-5.0); NEUTROPHILS # 3.3 K/mm3 (1.8-7.7); NEUTROPHILS % 39.9 % (36.0-66.0); PLATELET COUNT, AUTOMATED 237 k/mm3 (150-450); RED CELL DISTRIBUTION WIDTH 14.2 % (11.5-14.5); WHITE BLOOD COUNT 8.4 K/mm3 (4.0-10.0)
[2016-08-10 06:40] LABS: ERYTHROCYTE SEDIMENTATION RATE 44 mm/hr (0-30)
[2016-08-10 06:46] LABS: ALBUMIN 2.7 GM/DL (3.2-5.2); ALBUMIN/GLOBULIN RATIO 0.79 (1.00-1.93); ALKALINE PHOSPHATASE 47 U/L (45-117); ALT/SGPT 20 U/L (12-78); ANION GAP 5 MEQ/L (8-16); AST/SGOT 9 U/L (15-37); BILIRUBIN,TOTAL 0.3 MG/DL (0.2-1.0); BLOOD UREA NITROGEN 12 MG/DL (7-18); CALCIUM LEVEL 7.7 MG/DL (8.8-10.2); CARBON DIOXIDE LEVEL 32 MEQ/L (21-32); CHLORIDE LEVEL 104 MEQ/L (98-107); CREATININE FOR GFR 0.71 MG/DL (0.55-1.02); GLOMERULAR FILTRATION RATE > 60.0 (>39); GLUCOSE, FASTING 109 MG/DL (83-110); MAGNESIUM LEVEL 1.7 MG/DL (1.8-2.4); POTASSIUM SERUM 3.9 MEQ/L (3.5-5.1); SODIUM LEVEL 141 MEQ/L (136-145); TOTAL PROTEIN 6.1 GM/DL (6.4-8.2)
[2016-08-10] MEDS: HumaLOG INSULIN (NovoLOG) PER UNIT SC SCH ×4 (08:02→22:42)
[2016-08-10] MEDS: SODIUM CHLORIDE 0.9% INJ 10 ML SYR IV PRN (08:03)
[2016-08-10] MEDS: RAMIPRIL 5 MG CAP PO SCH (08:10)
[2016-08-10] MEDS: predniSONE 10 MG TAB PO SCH (08:10)
[2016-08-10] MEDS: amLODIPine 5 MG TAB PO SCH (08:10)
[2016-08-10] MEDS: METOPROLOL TART 25 MG TABLET PO SCH ×2 (08:10→20:47)
[2016-08-10] MEDS: CYCLOBENZAPRINE 5MG TABLET PO PRN ×2 (08:14→15:17)
[2016-08-10] MEDS: PREPARATION H SUPP (HEMORRHOID) PR SCH ×2 (08:18→20:47)
--- NOTE | 2016-08-10 13:33 | REP ---
Procedure: PICC line insertion with Ange-Regis The procedure was performed under the direct supervision of Dr. Funez. The risks and benefits of the procedure were explained to the patient and informed consent was obtained. The right basilic vein was localized using ultrasound guidance. The skin was prepped and draped in a sterile fashion. 2% lidocaine was used as a local anesthetic. Using ultrasound guidance the basilic vein was cannulated and a 0.018 guidewire was inserted and advanced to the SVC using fluoroscopic guidance. The needle was removed and a 4.5 [place] dilator and peel-away sheath was inserted over the guide wire. A 4.5 [place] single lumen catheter was cut to length of 40 cm. The dilator was removed and the catheter was inserted over the guide wire with the tip ending in the SVC. The peel-away sheath was removed and the catheter was flushed with heparinized saline as per Hospital protocol. The catheter was affixed to the skin and a sterile dressing was applied. The the patient tolerated the procedure well and there were no immediate complications. 14 seconds of fluoro time was utilized for this procedure. Reviewed by MARLIN Manzano 08/09/2016 04:28 PSigned by James Funez MD 08/10/2016 01:25 P
--- NOTE | 2016-08-10 14:26 | IPNPDOC ---
Text Note Date of Service The patient was seen on 08/10/16 at 14:16. NOTE Subjective: Patient is a 75 year old female with a PMHx of DM2, TIA, HTN, Hypothyroidism, Recurrent Nephrolithiasis, DDD, PUD who presented to the Er wtih severe lower back pain radiating to the R lower extremity. Patient follows Dr. Moreno for pain management. 10 days ago she received a corticosteroid injection which provided relief. She noted that after the effects wore off, her pain returned and was excruciating - preventing her from ambulating. Patient was also suspected of having a UTI in the ER and was given a dose of Ceftriaxone. Patient was found to have MSSA bacteremia from a urinary tract infection. TT ECHO was done and was negative. Repeat blood cultures were negative. Patient was seen and examined at the bedside. She notes that her Right abdominal pain has shown some improvement. Objective Vitals (See below) General: Lying in bed, no acute distress, AAOx3 HEENT: NC, AT CVS: RRR, + S1S2 Lungs: Fair air entry b/l, - W/R/R Abdomen: Soft, ND, Tenderness at R lower quadrant, +BSx4 Extremities: + PPx4, - edema, - calf tenderness Back: no paravertebral tenderness, tenderness at spinous process of L5, tenderness at right ischial tuberosity, Assessment and plan: 1. Sepsis 2/2 MSSA bacteremia 2/2 Urinary tract infection vs. carbuncle on left kidney - Complaints of back pain, no fever / chills - MRI of cervical / thoracic / lumbar spine reveals no abscess - Blood culture 07/31: MSSA; Urine culture 07/31: Staph aureus - TT ECHO is negative for vegetations - Dr. Cecilio scott - no need for TE ECHO at this time, given patient is afebrile and repeat cultures negative - Repeat blood cultures 08/01 negative - CT abdomen / pelvis after infection clears to evaluate renal carbuncle vs. cyst - MRI of R sacroiliac joint does not reveal any osteomyelitis or abscess - c/w Cefazolin 2g IV q8h - s/p PICC line placement - ID on consult (Dr. Charles) - appreciate their input 2. Severe Right lower back pain - possibly 2/2 foraminal stenosis and herniated disc - as an outpatient is usually not on any narcotics - currently requiring high dose narcotics - will get pain management consult 3. History of CVA - baseline weakness on right side 4. DM2 - c/w insulin sliding scale 5. Hypothyroidism - c/w Synthroid 6. HTN - BP elevated today; possibly 2/2 pain - c/w metoprolol and ramipril with holding parameters - will re-assess BP after morning doses and adjust if still elevated 7. History of recurrent nephrolithiasis - complains of R lower quadrant pain - will check urinalysis for RBC 8. Spinal stenosis - Patient states she does know about her stenosis which was noted on the MRIs a - She prefers to follow-up outpatient with her spine surgeon rather than consulting our neurosurgeon - Discussed with Dr. Will, the orthopedic helpdesk specialist who review the MRI; may need MRI with sedation or CT myelogram 9. RUE spasms - possibly 2/2 partial seizure, essential tremor or radiculopathy - evaluated by Neurology (Dr. Dyson) - appreciate their input - s/p EEG - official report pending 10. DVT prophylaxis - c/w heparin VS,Fishbone, I+O VS, Fishbone, I+O Laboratory Tests 08/10/16 06:11 Calcium Level 7.7 L, Aspartate Amino Transf (AST/SGOT) 9 L, Alanine Aminotransferase (ALT/SGPT) 20, Alkaline Phosphatase 47, Total Bilirubin 0.3, Total Protein 6.1 L, Albumin 2.7 L, Red Blood Count 3.04 L, Mean Corpuscular Volume 93.7, Mean Corpuscular Hemoglobin 30.0, Mean Corpuscular Hemoglobin Concent 32.1, Red Cell Distribution Width 14.2, Neutrophils (%) (Auto) 39.9, Lymphocytes (%) (Auto) 46.7 H, Monocytes (%) (Auto) 5.1 H, Eosinophils (%) (Auto ) 2.6, Basophils (%) (Auto) 0.7, Neutrophils # (Auto) 3.3, Lymphocytes # (Auto) 3.9, Monocytes # (Auto) 0.4, Eosinophils # (Auto) 0.2, Basophils # (Auto) 0.1 Vital Signs Date Time Temp Pulse Resp B/P Pulse Ox O2 Delivery O2 Flow Rate FiO2 08/10/16 13:19 20 Room Air 08/10/16 08:10 73 08/10/16 08:10 148/82 08/10/16 08:00 97.8 96 I&O- Last 24 Hours up to 6 AM 08/10/16 05:59 Intake Total 1777.5 ml Output Total 1500 ml Balance 277.5 ml KEON HERNANDEZ MD Aug 10, 2016 14:26
--- NOTE | 2016-08-10 17:29 | CR ---
DATE OF CONSULTATION: 08/10/2016 CHIEF COMPLAINT: 1. Right low back pain. 2. Right leg pain. REFERRING PROVIDER: Dr. Peraza HISTORY OF PRESENT ILLNESS: Ynes is a 75-year-old female with a long history of chronic right-sided low back pain, right leg pain who has been responding well to injection therapy at Dr. Moreno's pain practice here locally. Had a right sacroiliac joint injection approximately 10 days prior to admission and states that she had no pain postprocedure. Approximately 6 days postprocedure, she developed severe pain just sitting in a chair at home and it became excruciating to the point where she was not able to walk. Presented to the emergency room. She was diagnosed with sepsis and admitted. Pain has not been under control during the hospital stay. This is despite morphine 2 mg IV every 2 hours as needed and Flexeril 5 mg as needed as well as Percocet 5-325 two tablets as needed. Reporting pain level as a 10 over 10. Also having right arm tremors and dyskinetic movements. The patient states that she has been having this over the past month. States it is worse when her pain is uncontrolled. Has been evaluated by neurology. MRI imaging this hospital stay of her brain, cervical, and lumbar sacral spine without evidence of mass lesion etc. She has chronic degenerative changes of the spine. Denies bowel or bladder incontinence. Reporting normal bowel and bladder movements today. Does report recent fever and shaking episodes at home prior to admission. Denies sudden weight loss. PAST MEDICAL HISTORY: Diabetes mellitus, type 2. Transient ischemic attack (TIA). Hypertension. Vertebral artery stenosis. MRA which was done on 04/2014 shows vertebral and basilar pattern, mild intracranial stenosis. Hypothyroidism. Recurrent nephrolithiasis since she was 17 years old. Degenerative disc disease of thoracic and lumbar spine. Patient following with Dr. Moreno, Pain Management, locally. Follows with [facility]. Peptic ulcer disease. Left ophthalmic artery aneurysm. MRA of the brain shows 1.8 mm on 02/18/2012. MRA of 04/2014, no changes. Mild aneurysmal dilation. Cataract surgery on both eyes performed in 2012. T12 compression fracture. PAST SURGICAL HISTORY: Left wrist fracture when she was a child. Appendectomy at age 16. Open removal of kidney stones times two. Left tibial fracture 1970. Exploratory lap. Hysterectomy. Left breast lumpectomy, benign. Right carpal tunnel release. Both cataract lens implantations in 2013. Colonoscopy. Esophagogastroduodenoscopy (EGD). SOCIAL HISTORY: Lives with her who is basically wheelchair dependent. She has not traveled outside of the [place]. She has five children. One daughter . Denies alcohol use. Denies smoking history. FAMILY HISTORY: One brother who had a massive myocardial infarction ([place]) and 15 years ago. Father due to laryngeal cancer. Mother heart failure, age 86. REVIEW OF SYSTEMS: Constitutional - denies recent weight loss. Reports recent episode of shaking and fever. HEENT - denies double vision or hearing disturbance. Neck - Reports chronic neck pain. Cardiac - denies chest pain or shortness of breath. History of TIA. Lungs - denies shortness of breath. Denies chronic cough. Gastrointestinal - denies bowel incontinence. Denies chronic diarrhea. Denies nausea. Neurologic - denies history of seizures. Denies chronic headaches. The patient reports onset of right arm tremors and dyskinetic movements times 1 month. PHYSICAL EXAMINATION: Awake, alert, pleasant. Appears in no acute distress. Vital signs: Temperature 98.8, pulse 97, respiratory rate 18, blood pressure 170/80, oxygen saturation 94% on room air. Cardiac - S1-S2. Normal rate and rhythm. Respiratory - lung sounds clear. Respirations nonlabored. Abdomen - soft and nontender. Musculoskeleta: Inspection of spine - marked tenderness to light palpation over LS axis. Specific exquisite tenderness noted over right lumbar paraspinal right sacroiliac joint, right piriformis musculature. Nontender over right hip joint. Lower extremities - warm to touch. No swelling noted. No redness. Pedal pulses palpable bilaterally. Neuromuscular - muscle strength of the upper and lower extremities is 5/5. Reporting normal sensation to light touch upper and lower extremities. It should be noted that during the visit, the patient's right arm with tremors noted. DIAGNOSTIC DATA: Thoracic spine MRI 08/01/2016: Chronic mild compression fracture deformity involving L1 vertebral body. T11-12/T12-L1 herniated discs centrally which are in contact with the cord with canal stenosis. Foramen are patent. There is no evidence of abnormal enhancement and no evidence of an abscess. Lumbar spine MRI 08/01/2016: Chronic compression fracture involving L1 vertebral body. No acute fractures. No evidence of an abscess. No abnormal enhancement is demonstrated. L5-S1 central herniated disc noted. Hypertrophic facet disease noted. At L4-5, diffuse bulge. Hypertrophic facet disease noted. L3-4 showing facet disease. Cervical spine MRI dated 08/01/2016: Large central herniated disc at C4-5 measuring 7 x 1.5 mm. At C5-6, broad-based herniated disc is seen across the disc space measuring 20 x 30 mm in contact with the cord. Multilevel spondylolisthesis. Brain MRI 08/01/2016: No significant abnormalities noted. Cervical spine without contrast 08/06/2016: Cervical spondylosis at the C3-4 through C6-7 levels without spinal cord compression. No change compared to the previous study. ASSESSMENT: 1. Acute on chronic right low back pain. 2. Right sacroiliac joint pain. 3. Right piriformis musculature pain. PLAN: Due to the fact that the patient is receiving antibiotics for sepsis, injection therapy would be contraindicated. Recommend discontinuing Flexeril 5 mg as needed and a trial of Soma 350 mg three times a day. May consider a trial of Lyrica 50 mg to 100 mg twice a day. Continue current use of morphine 2 mg every 2 hours as needed and Percocet 5-325 two tablets as needed for acute pain flare-ups. Would recommend that she continues to follow with Dr. Moreno after discharge for pain management. Continue with physical and occupational therapy efforts. May consider acute rehabilitation as an inpatient. Thank you for allowing us to participate in the care of your patient Ynes Pollard. Should you have any questions or concerns, please do not hesitate to contact me. Sincerely, Jillian Hernandez, Family Nurse Practitioner [facility], [facility]
--- NOTE | 2016-08-10 19:46 | IPN ---
DATE: 08/10/2016 SUBJECTIVE: Ynes seems to be doing better today. She still complains of significant low back pain mostly on the right side. Tremor of the right arm has improved. She has remained afebrile. OBJECTIVE: VITAL SIGNS: Temperature is 97.8, pulse 80, respirations 18, blood of pressure 166/78, oxygen saturation 96% on room air. HEART: Normal S1, S2 with no murmurs. LUNGS: Clear. No wheezes, rales or rhonchi. ABDOMEN: Obese, soft, tender in the right lower quadrant. BACK: Right costovertebral angle tenderness. Right hip tenderness especially in the sacroiliac joint. EXTREMITIES: No clubbing, cyanosis or edema. No calf tenderness. LABORATORY DATA: White count is 8.4, hemoglobin 9.1, hematocrit 28.5, platelets 237, 40% neutrophils, 47% lymphocytes, 5% monocytes. ESR is 44 down from 58. Sodium 141, potassium 3.9, chloride 104, bicarb 32, BUN 12, creatinine 0.7, glucose 109, calcium 7.6, magnesium 1.7. CRP 1.18 down from 6.76. Total protein 6.1, albumin 2.7. IMPRESSION: 1. Staphylococcus aureus sepsis, methicillin-sensitive with positive urine culture and renal carbuncle most likely source is of kidney origin. Continue intravenous (IV) cefazolin for total of two weeks. End of therapy would be 08/15. If the patient is not able to go home with IV cephazolin because every eight hours infusion, she could be switched to IV Rocephin 2 grams daily. 2. History of degenerative disc disease and severe sacroiliitis with worsening pain since she had a steroid injection. I have reviewed her medical record and in 2013, she had a similar admission for intractable pain. I suggest adding gabapentin for pain management, possibly obtaining a pain management consult. 3. History of cerebrovascular accident (CVA) and right arm tremor. Again this seems to have been a problem in the past. In 2013, she had an MRI, MRA for similar symptoms. 4. History of recurrent nephrolithiasis with increasing abdominal pain that could be passing of a stone. PLAN: Continue IV Kefzol or Rocephin until 08/15. C-reactive protein and sedimentation rate are improving. There is no need for transesophageal echocardiogram.
[2016-08-10] MEDS: SLF 3 ML SYR IV PRN (23:24)
[2016-08-11] VITALS (7 sets, daily range): BP systolic 108–165; BP diastolic 53–80
[2016-08-11] MEDS: LEVOTHYROXINE 0.1 MG TAB (100 MCG) PO SCH (05:22)
[2016-08-11] MEDS: HEPARIN SOD (PORCINE) 5000 UNITS/ML VIAL SC SCH ×3 (05:23→20:32)
[2016-08-11] MEDS: levETIRAcetam 750 MG in D5W 100 ML IV SCH ×2 (05:23→16:41)
[2016-08-11] MEDS: PERCOCET 5MG/325MG TAB PO PRN ×2 (05:23→16:41)
[2016-08-11] MEDS: SLF 3 ML SYR IV SCH ×2 (05:24→14:00)
[2016-08-11] MEDS: SODIUM CHLORIDE 0.9% INJ 10 ML SYR IV SCH ×2 (05:24→17:26)
[2016-08-11 05:44] LABS: BASO % 0.6 % (0.0-1.0); EOS # 0.2 K/mm3 (0.0-0.50); LARGE UNSTAINED CELL # 0.4 K/mm3 (0.0-0.4); LARGE UNSTAINED CELL % 4.2 % (0.0-4.0); LYMPH # 4.3 K/mm3 (1.5-4.5); LYMPH % 45.7 % (24.0-44.0); MEAN CORPUSCULAR HEMOGLOBIN 30.7 pg (27.0-33.0); MEAN CORPUSCULAR HGB CONC 32.7 g/dl (32.0-36.5); MONO # 0.4 K/mm3 (0.0-0.8); MONO % 4.5 % (0.0-5.0); NEUTROPHILS # 4.1 K/mm3 (1.8-7.7); NEUTROPHILS % 43.1 % (36.0-66.0); PLATELET COUNT, AUTOMATED 299 k/mm3 (150-450); RED CELL DISTRIBUTION WIDTH 14.4 % (11.5-14.5); WHITE BLOOD COUNT 9.4 K/mm3 (4.0-10.0)
[2016-08-11] MEDS: MORPHINE 2 MG/ML 1ML SYRINGE IV PRN ×3 (05:54→21:51)
[2016-08-11 06:07] LABS: ALBUMIN 2.8 GM/DL (3.2-5.2); ALBUMIN/GLOBULIN RATIO 0.72 (1.00-1.93); ALKALINE PHOSPHATASE 56 U/L (45-117); ALT/SGPT 21 U/L (12-78); ANION GAP 8 MEQ/L (8-16); AST/SGOT 11 U/L (15-37); BILIRUBIN,TOTAL 0.4 MG/DL (0.2-1.0); BLOOD UREA NITROGEN 12 MG/DL (7-18); CALCIUM LEVEL 8.7 MG/DL (8.8-10.2); CARBON DIOXIDE LEVEL 29 MEQ/L (21-32); CHLORIDE LEVEL 104 MEQ/L (98-107); CREATININE FOR GFR 0.78 MG/DL (0.55-1.02); GLOMERULAR FILTRATION RATE > 60.0 (>39); GLUCOSE, FASTING 127 MG/DL (83-110); MAGNESIUM LEVEL 1.8 MG/DL (1.8-2.4); POTASSIUM SERUM 3.7 MEQ/L (3.5-5.1); SODIUM LEVEL 141 MEQ/L (136-145); TOTAL PROTEIN 6.7 GM/DL (6.4-8.2)
[2016-08-11] MEDS: HumaLOG INSULIN (NovoLOG) PER UNIT SC SCH ×4 (07:39→20:49)
[2016-08-11] MEDS: predniSONE 10 MG TAB PO SCH (07:40)
[2016-08-11] MEDS: METOPROLOL TART 25 MG TABLET PO SCH ×2 (07:40→20:31)
[2016-08-11] MEDS: amLODIPine 5 MG TAB PO SCH (07:40)
[2016-08-11] MEDS: RAMIPRIL 5 MG CAP PO SCH (07:41)
[2016-08-11] MEDS: PREPARATION H SUPP (HEMORRHOID) PR SCH ×2 (07:41→20:32)
[2016-08-11] MEDS: ONDANSETRON 4MG/2ML VIAL (J2405) IV PRN (09:09)
[2016-08-11] MEDS: CARISOPRODOL 350 MG TAB PO SCH ×3 (09:09→20:31)
--- NOTE | 2016-08-11 14:36 | IPNPDOC ---
Text Note Date of Service The patient was seen on 08/11/16 at 14:31. NOTE Subjective: Patient is a 75 year old female with a PMHx of DM2, TIA, HTN, Hypothyroidism, Recurrent Nephrolithiasis, DDD, PUD who presented to the Er wtih severe lower back pain radiating to the R lower extremity. Patient follows Dr. Moreno for pain management. 10 days ago she received a corticosteroid injection which provided relief. She noted that after the effects wore off, her pain returned and was excruciating - preventing her from ambulating. Patient was also suspected of having a UTI in the ER and was given a dose of Ceftriaxone. Patient was found to have MSSA bacteremia from a urinary tract infection. TT ECHO was done and was negative. Repeat blood cultures were negative. Patient was seen and examined at the bedside. She reports her abdominal pain remains, but has become more tolerable Objective Vitals (See below) General: Lying in bed, no acute distress, AAOx3 HEENT: NC, AT CVS: RRR, + S1S2 Lungs: Fair air entry b/l, - W/R/R Abdomen: Soft, ND, Tenderness at R lower quadrant, +BSx4 Extremities: + PPx4, - edema, - calf tenderness Back: no paravertebral tenderness, tenderness at spinous process of L5, tenderness at right ischial tuberosity, Assessment and plan: 1. Sepsis 2/2 MSSA bacteremia 2/2 Urinary tract infection vs. carbuncle on left kidney - Complaints of back pain, no fever / chills - MRI of cervical / thoracic / lumbar spine reveals no abscess - Blood culture 07/31: MSSA; Urine culture 07/31: Staph aureus - TT ECHO is negative for vegetations - Dr. Cecilio scott - no need for TE ECHO at this time, given patient is afebrile and repeat cultures negative - Repeat blood cultures 08/01 negative - CT abdomen / pelvis after infection clears to evaluate renal carbuncle vs. cyst - MRI of R sacroiliac joint does not reveal any osteomyelitis or abscess - c/w Cefazolin 2g IV q8h - s/p PICC line placement - ID on consult (Dr. Charles) - appreciate their input 2. Severe Right lower back pain - possibly 2/2 foraminal stenosis and herniated disc - as an outpatient is usually not on any narcotics - currently requiring high dose narcotics - Pain management evaluation - will change Flexeril to Soma - Will c/w physical therapy as tolerated 3. History of CVA - baseline weakness on right side 4. DM2 - c/w insulin sliding scale 5. Hypothyroidism - c/w Synthroid 6. HTN - BP elevated today; possibly 2/2 pain - c/w metoprolol and ramipril with holding parameters - will re-assess BP after morning doses and adjust if still elevated 7. History of recurrent nephrolithiasis - complains of R lower quadrant pain - UA with few RBCs 8. Spinal stenosis - Patient states she does know about her stenosis which was noted on the MRIs a - She prefers to follow-up outpatient with her spine surgeon rather than consulting our neurosurgeon - Discussed with Dr. Will, the orthopedic accreditation specialist who review the MRI; may need MRI with sedation or CT myelogram 9. RUE spasms - possibly 2/2 partial seizure, essential tremor or radiculopathy - evaluated by Neurology (Dr. Dyson) - appreciate their input - s/p EEG - official report pending 10. DVT prophylaxis - c/w heparin VS,Fishbone, I+O VS, Fishbone, I+O Laboratory Tests 08/11/16 05:29 Calcium Level 8.7 L, Aspartate Amino Transf (AST/SGOT) 11 L, Alanine Aminotransferase (ALT/SGPT) 21, Alkaline Phosphatase 56, Total Bilirubin 0.4, Total Protein 6.7, Albumin 2.8 L, Red Blood Count 3.17 L, Mean Corpuscular Volume 94.0, Mean Corpuscular Hemoglobin 30.7, Mean Corpuscular Hemoglobin Concent 32.7, Red Cell Distribution Width 14.4, Neutrophils (%) (Auto) 43.1, Lymphocytes (%) (Auto) 45.7 H, Monocytes (%) (Auto) 4.5, Eosinophils (%) (Auto) 2.0, Basophils (%) (Auto) 0.6, Neutrophils # (Auto) 4.1, Lymphocytes # (Auto) 4.3, Monocytes # (Auto) 0.4, Eosinophils # (Auto) 0.2, Basophils # (Auto) 0.0 Vital Signs Date Time Temp Pulse Resp B/P Pulse Ox O2 Delivery O2 Flow Rate FiO2 08/11/16 14:23 18 Room Air 08/11/16 12:00 97.9 86 108/53 96 I&O- Last 24 Hours up to 6 AM 08/11/16 06:00 Intake Total 890 ml Output Total 2750 ml Balance -1860 ml KEON HERNANDEZ MD Aug 11, 2016 14:36
[2016-08-11] MEDS: SODIUM CHLORIDE 0.9% INJ 10 ML SYR IV PRN (21:52)
[2016-08-12] MEDS: PERCOCET 5MG/325MG TAB PO PRN (01:00)
[2016-08-12] MEDS: MORPHINE 2 MG/ML 1ML SYRINGE IV PRN ×3 (04:29→19:26)
[2016-08-12] MEDS: levETIRAcetam 750 MG in D5W 100 ML IV SCH ×2 (04:30→16:49)
[2016-08-12] MEDS: SODIUM CHLORIDE 0.9% INJ 10 ML SYR IV SCH ×2 (04:30→17:29)
[2016-08-12] MEDS: HEPARIN SOD (PORCINE) 5000 UNITS/ML VIAL SC SCH ×3 (04:30→20:46)
[2016-08-12] MEDS: LEVOTHYROXINE 0.1 MG TAB (100 MCG) PO SCH (04:30)
[2016-08-12 04:45] VITALS: BP 135/62
[2016-08-12 04:50] LABS: BASO # 0.1 K/mm3 (0.0-0.2); BASO % 0.8 % (0.0-1.0); EOS # 0.2 K/mm3 (0.0-0.50); EOS % 1.8 % (0.0-3.0); LARGE UNSTAINED CELL # 0.3 K/mm3 (0.0-0.4); LARGE UNSTAINED CELL % 2.7 % (0.0-4.0); LYMPH # 4.3 K/mm3 (1.5-4.5); LYMPH % 41.1 % (24.0-44.0); MEAN CORPUSCULAR HEMOGLOBIN 30.5 pg (27.0-33.0); MEAN CORPUSCULAR VOLUME 95.2 fl (80.0-96.0); MONO # 0.4 K/mm3 (0.0-0.8); MONO % 4.5 % (0.0-5.0); NEUTROPHILS # 4.9 K/mm3 (1.8-7.7); NEUTROPHILS % 49.2 % (36.0-66.0); PLATELET COUNT, AUTOMATED 292 k/mm3 (150-450); RED CELL DISTRIBUTION WIDTH 15.6 % (11.5-14.5); WHITE BLOOD COUNT 9.9 K/mm3 (4.0-10.0)
[2016-08-12 05:08] LABS: ALBUMIN 2.7 GM/DL (3.2-5.2); ALBUMIN/GLOBULIN RATIO 0.73 (1.00-1.93); ALKALINE PHOSPHATASE 58 U/L (45-117); ALT/SGPT 15 U/L (12-78); ANION GAP 9 MEQ/L (8-16); AST/SGOT 13 U/L (15-37); BILIRUBIN,TOTAL 0.3 MG/DL (0.2-1.0); BLOOD UREA NITROGEN 17 MG/DL (7-18); CALCIUM LEVEL 8.3 MG/DL (8.8-10.2); CARBON DIOXIDE LEVEL 30 MEQ/L (21-32); CHLORIDE LEVEL 105 MEQ/L (98-107); CREATININE FOR GFR 0.82 MG/DL (0.55-1.02); GLOMERULAR FILTRATION RATE > 60.0 (>39); GLUCOSE, FASTING 125 MG/DL (83-110); MAGNESIUM LEVEL 1.8 MG/DL (1.8-2.4); POTASSIUM SERUM 3.7 MEQ/L (3.5-5.1); SODIUM LEVEL 144 MEQ/L (136-145); TOTAL PROTEIN 6.4 GM/DL (6.4-8.2)
[2016-08-12] MEDS: ONDANSETRON 4MG/2ML VIAL (J2405) IV PRN (07:41)
[2016-08-12] MEDS: HumaLOG INSULIN (NovoLOG) PER UNIT SC SCH ×4 (07:44→20:36)
[2016-08-12] MEDS: predniSONE 10 MG TAB PO SCH (07:46)
[2016-08-12] MEDS: PREPARATION H SUPP (HEMORRHOID) PR SCH ×3 (07:46→21:00)
[2016-08-12] MEDS: amLODIPine 5 MG TAB PO SCH (07:47)
[2016-08-12] MEDS: METOPROLOL TART 25 MG TABLET PO SCH ×2 (07:47→20:46)
[2016-08-12] MEDS: RAMIPRIL 5 MG CAP PO SCH (07:47)
[2016-08-12] MEDS: CARISOPRODOL 350 MG TAB PO SCH ×3 (07:48→20:46)
[2016-08-12 08:00] VITALS: BP 140/70
[2016-08-12] MEDS: PREGABALIN 50 MG CAP (LYRICA) PO SCH ×2 (10:32→20:46)
[2016-08-12 11:55] VITALS: BP 133/66
[2016-08-12] MEDS: SINEMET 25-100 MG TAB PO SCH ×3 (12:09→20:45)
--- NOTE | 2016-08-12 15:33 | IPNPDOC ---
Text Note Date of Service The patient was seen on 08/12/16 at 15:30. NOTE Subjective: Patient is a 75 year old female with a PMHx of DM2, TIA, HTN, Hypothyroidism, Recurrent Nephrolithiasis, DDD, PUD who presented to the Er wtih severe lower back pain radiating to the R lower extremity. Patient follows Dr. Moreno for pain management. 10 days ago she received a corticosteroid injection which provided relief. She noted that after the effects wore off, her pain returned and was excruciating - preventing her from ambulating. Patient was also suspected of having a UTI in the ER and was given a dose of Ceftriaxone. Patient was found to have MSSA bacteremia from a urinary tract infection. TT ECHO was done and was negative. Repeat blood cultures were negative. Patient was seen and examined at the bedside. She notes that she has been making progress with physical therapy. Objective Vitals (See below) General: Lying in bed, no acute distress, AAOx3 HEENT: NC, AT CVS: RRR, + S1S2 Lungs: Fair air entry b/l, - W/R/R Abdomen: Soft, ND, Tenderness at R lower quadrant, +BSx4 Extremities: + PPx4, - edema, - calf tenderness Back: no paravertebral tenderness, tenderness at spinous process of L5, tenderness at right ischial tuberosity, Assessment and plan: 1. Sepsis 2/2 MSSA bacteremia 2/2 Urinary tract infection vs. carbuncle on left kidney - Complaints of back pain, no fever / chills - MRI of cervical / thoracic / lumbar spine reveals no abscess - Blood culture 07/31: MSSA; Urine culture 07/31: Staph aureus - TT ECHO is negative for vegetations - Dr. Cecilio scott - no need for TE ECHO at this time, given patient is afebrile and repeat cultures negative - Repeat blood cultures 08/01 negative - CT abdomen / pelvis after infection clears to evaluate renal carbuncle vs. cyst - MRI of R sacroiliac joint does not reveal any osteomyelitis or abscess - c/w Cefazolin 2g IV q8h - s/p PICC line placement - ID on consult (Dr. Charles) - appreciate their input 2. Severe Right lower back pain - possibly 2/2 foraminal stenosis and herniated disc - as an outpatient is usually not on any narcotics - currently requiring high dose narcotics - but has been going down on frequency - Pain management evaluation - c/w Soma, will add Lyrica - Will c/w physical therapy as tolerated - has been making advances 3. History of CVA - baseline weakness on right side 4. DM2 - c/w insulin sliding scale 5. Hypothyroidism - c/w Synthroid 6. HTN - BP well controlled - c/w metoprolol and ramipril with holding parameters 7. History of recurrent nephrolithiasis - complains of R lower quadrant pain - UA with few RBCs 8. Spinal stenosis - Patient states she does know about her stenosis which was noted on the MRIs a - She prefers to follow-up outpatient with her spine surgeon rather than consulting our neurosurgeon - Discussed with Dr. Will, the orthopedic podiatric foot and ankle specialist who review the MRI; may need MRI with sedation or CT myelogram 9. RUE spasms - possibly 2/2 partial seizure, essential tremor or radiculopathy - evaluated by Neurology (Dr. Dyson) - appreciate their input - s/p EEG - official report pending 10. DVT prophylaxis - c/w heparin VS,Fishbone, I+O VS, Fishbone, I+O Laboratory Tests 08/12/16 04:35 Calcium Level 8.3 L, Aspartate Amino Transf (AST/SGOT) 13 L, Alanine Aminotransferase (ALT/SGPT) 15, Alkaline Phosphatase 58, Total Bilirubin 0.3, Total Protein 6.4, Albumin 2.7 L, Red Blood Count 3.17 L, Mean Corpuscular Volume 95.2, Mean Corpuscular Hemoglobin 30.5, Mean Corpuscular Hemoglobin Concent 32.0, Red Cell Distribution Width 15.6 H, Neutrophils (%) (Auto) 49.2, Lymphocytes (%) (Auto) 41.1, Monocytes (%) (Auto) 4.5, Eosinophils (%) (Auto) 1.8, Basophils (%) (Auto) 0.8, Neutrophils # (Auto) 4.9, Lymphocytes # (Auto) 4.3, Monocytes # (Auto) 0.4, Eosinophils # (Auto) 0.2, Basophils # (Auto) 0.1 Vital Signs Date Time Temp Pulse Resp B/P Pulse Ox O2 Delivery O2 Flow Rate FiO2 08/12/16 14:58 18 Room Air 1/8/17 11:55 97.7 111 133/66 94 I&O- Last 24 Hours up to 6 AM 08/12/16 05:59 Intake Total 1928 ml Output Total 1700 ml Balance 228 ml KEON HERNANDEZ MD Aug 12, 2016 15:33
[2016-08-12 16:00] VITALS: BP 123/56
[2016-08-12 19:45] VITALS: BP 142/65
[2016-08-12] MEDS: PRIMIDONE 50 MG TAB PO SCH (20:45)
[2016-08-12 23:59] VITALS: BP 145/69
[2016-08-13 04:00] VITALS: BP 139/61
[2016-08-13] MEDS: levETIRAcetam 750 MG in D5W 100 ML IV SCH ×2 (04:02→15:14)
[2016-08-13] MEDS: HEPARIN SOD (PORCINE) 5000 UNITS/ML VIAL SC SCH ×3 (04:59→20:56)
[2016-08-13] MEDS: SODIUM CHLORIDE 0.9% INJ 10 ML SYR IV SCH ×2 (04:59→14:02)
[2016-08-13] MEDS: LEVOTHYROXINE 0.1 MG TAB (100 MCG) PO SCH (05:00)
[2016-08-13 05:32] LABS: BASO % 0.3 % (0.0-1.0); EOS # 0.1 K/mm3 (0.0-0.50); EOS % 1.4 % (0.0-3.0); LARGE UNSTAINED CELL # 0.3 K/mm3 (0.0-0.4); LARGE UNSTAINED CELL % 3.2 % (0.0-4.0); LYMPH # 3.8 K/mm3 (1.5-4.5); LYMPH % 39.9 % (24.0-44.0); MEAN CORPUSCULAR HEMOGLOBIN 31.5 pg (27.0-33.0); MEAN CORPUSCULAR HGB CONC 33.5 g/dl (32.0-36.5); MONO # 0.5 K/mm3 (0.0-0.8); MONO % 5.2 % (0.0-5.0); NEUTROPHILS # 4.8 K/mm3 (1.8-7.7); NEUTROPHILS % 50.1 % (36.0-66.0); PLATELET COUNT, AUTOMATED 269 k/mm3 (150-450); RED CELL DISTRIBUTION WIDTH 14.9 % (11.5-14.5); WHITE BLOOD COUNT 9.6 K/mm3 (4.0-10.0)
[2016-08-13] MEDS: MORPHINE 2 MG/ML 1ML SYRINGE IV PRN ×4 (05:35→20:55)
[2016-08-13 05:51] LABS: ALBUMIN 2.7 GM/DL (3.2-5.2); ALBUMIN/GLOBULIN RATIO 0.73 (1.00-1.93); ALKALINE PHOSPHATASE 51 U/L (45-117); ALT/SGPT 8 U/L (12-78); ANION GAP 9 MEQ/L (8-16); AST/SGOT 12 U/L (15-37); BILIRUBIN,TOTAL 0.4 MG/DL (0.2-1.0); BLOOD UREA NITROGEN 14 MG/DL (7-18); CALCIUM LEVEL 7.9 MG/DL (8.8-10.2); CARBON DIOXIDE LEVEL 29 MEQ/L (21-32); CHLORIDE LEVEL 103 MEQ/L (98-107); CREATININE FOR GFR 0.73 MG/DL (0.55-1.02); GLOMERULAR FILTRATION RATE > 60.0 (>39); GLUCOSE, FASTING 104 MG/DL (83-110); MAGNESIUM LEVEL 1.8 MG/DL (1.8-2.4); POTASSIUM SERUM 4.1 MEQ/L (3.5-5.1); SODIUM LEVEL 141 MEQ/L (136-145); TOTAL PROTEIN 6.4 GM/DL (6.4-8.2)
[2016-08-13 08:00] VITALS: BP 153/72
[2016-08-13] MEDS: HumaLOG INSULIN (NovoLOG) PER UNIT SC SCH ×4 (08:14→22:15)
[2016-08-13] MEDS: PREPARATION H SUPP (HEMORRHOID) PR SCH ×2 (09:22→20:54)
[2016-08-13] MEDS: METOPROLOL TART 25 MG TABLET PO SCH ×2 (09:23→20:55)
[2016-08-13] MEDS: predniSONE 10 MG TAB PO SCH (09:23)
[2016-08-13] MEDS: SINEMET 25-100 MG TAB PO SCH ×4 (09:23→20:56)
[2016-08-13] MEDS: RAMIPRIL 5 MG CAP PO SCH (09:23)
[2016-08-13] MEDS: PREGABALIN 50 MG CAP (LYRICA) PO SCH ×2 (09:24→20:56)
[2016-08-13] MEDS: amLODIPine 5 MG TAB PO SCH (09:24)
[2016-08-13] MEDS: CARISOPRODOL 350 MG TAB PO SCH ×3 (09:24→20:56)
[2016-08-13] MEDS: ONDANSETRON 4MG/2ML VIAL (J2405) IV PRN ×2 (10:30→17:14)
[2016-08-13 12:00] VITALS: BP 156/62
[2016-08-13] MEDS: PERCOCET 5MG/325MG TAB PO PRN (15:14)
[2016-08-13 16:00] VITALS: BP 133/61
--- NOTE | 2016-08-13 16:06 | IPNPDOC ---
Text Note Date of Service The patient was seen on 08/13/16 at 16:03. NOTE Subjective: Patient is a 75 year old female with a PMHx of DM2, TIA, HTN, Hypothyroidism, Recurrent Nephrolithiasis, DDD, PUD who presented to the Er wtih severe lower back pain radiating to the R lower extremity. Patient follows Dr. Moreno for pain management. 10 days ago she received a corticosteroid injection which provided relief. She noted that after the effects wore off, her pain returned and was excruciating - preventing her from ambulating. Patient was also suspected of having a UTI in the ER and was given a dose of Ceftriaxone. Patient was found to have MSSA bacteremia from a urinary tract infection. TT ECHO was done and was negative. Repeat blood cultures were negative. Patient was seen and examined at the bedside. She reports that she continues to ambulate. Objective Vitals (See below) General: Lying in bed, no acute distress, AAOx3 HEENT: NC, AT CVS: RRR, + S1S2 Lungs: Fair air entry b/l, - W/R/R Abdomen: Soft, ND, Tenderness at R lower quadrant, +BSx4 Extremities: + PPx4, - edema, - calf tenderness Assessment and plan: 1. Sepsis 2/2 MSSA bacteremia 2/2 Urinary tract infection vs. carbuncle on left kidney - Complaints of back pain, no fever / chills - MRI of cervical / thoracic / lumbar spine reveals no abscess - Blood culture 07/31: MSSA; Urine culture 07/31: Staph aureus - TT ECHO is negative for vegetations - Dr. Hernandes following - no need for TE ECHO at this time, given patient is afebrile and repeat cultures negative - Repeat blood cultures 08/01 negative - CT abdomen / pelvis after infection clears to evaluate renal carbuncle vs. cyst - MRI of R sacroiliac joint does not reveal any osteomyelitis or abscess - c/w Cefazolin 2g IV q8h - completion of therapy will be 08/15 - s/p PICC line placement - ID on consult (Dr. Charles) - appreciate their input 2. Severe Right lower back pain - possibly 2/2 foraminal stenosis and herniated disc - as an outpatient is usually not on any narcotics - currently requiring high dose narcotics - but has been going down on frequency - Pain management evaluation - c/w Soma, will add Lyrica - c/w physical therapy as tolerated - has been making advances 3. History of CVA - baseline weakness on right side 4. DM2 - c/w insulin sliding scale 5. Hypothyroidism - c/w Synthroid 6. HTN - BP well controlled - c/w metoprolol and ramipril with holding parameters 7. History of recurrent nephrolithiasis - complains of R lower quadrant pain - UA with few RBCs 8. Spinal stenosis - Patient states she does know about her stenosis which was noted on the MRIs a - She prefers to follow-up outpatient with her spine surgeon rather than consulting our neurosurgeon 9. RUE spasms - possibly 2/2 partial seizure, essential tremor or radiculopathy - evaluated by Neurology (Dr. Dyson) - appreciate their input - s/p EEG - official report pending 10. DVT prophylaxis - c/w heparin Disposition - Will require completion of antibiotics on 08/15 - Awaiting clearance by PT/OT VS,Alice, I+O VS, Alice I+O Laboratory Tests 08/13/16 05:01 Calcium Level 7.9 L, Aspartate Amino Transf (AST/SGOT) 12 L, Alanine Aminotransferase (ALT/SGPT) 8 L, Alkaline Phosphatase 51, Total Bilirubin 0.4, Total Protein 6.4, Albumin 2.7 L, Red Blood Count 3.02 L, Mean Corpuscular Volume 94.0, Mean Corpuscular Hemoglobin 31.5, Mean Corpuscular Hemoglobin Concent 33.5, Red Cell Distribution Width 14.9 H, Neutrophils (%) (Auto) 50.1, Lymphocytes (%) (Auto) 39.9, Monocytes (%) (Auto) 5.2 H, Eosinophils (%) (Auto) 1.4, Basophils (%) (Auto) 0.3, Neutrophils # (Auto) 4.8, Lymphocytes # (Auto) 3.8, Monocytes # (Auto) 0.5, Eosinophils # (Auto) 0.1, Basophils # (Auto) 0.0 Vital Signs Date Time Temp Pulse Resp B/P Pulse Ox O2 Delivery O2 Flow Rate FiO2 08/13/16 15:14 98.5 80 20 156/62 99 Room Air 2.0 I&O- Last 24 Hours up to 6 AM 08/13/16 06:00 Intake Total 170 ml Output Total 700 ml Balance -530 ml KEON HERNANDEZ MD Aug 13, 2016 16:06
[2016-08-13 20:20] VITALS: BP 132/61
[2016-08-13] MEDS: PRIMIDONE 50 MG TAB PO SCH (20:56)
--- NOTE | 2016-08-13 22:37 | IPN ---
DATE: 08/13/2016 Mrs. Pollard seems to be doing much better. She still complained of significant pain in her right hip this morning but she is doing better. She is ambulating, she gets out of bed with her walker, walks around the nurses station. She is anxious to go home. She has no nausea, vomiting or diarrhea. She was seen by the pain clinic who adjusted her medication. She was started on Lyrica 50 mg twice a day, Mysoline 50 mg by mouth nightly, Sinemet 0.5 by mouth four times a day, Soma 350 mg by mouth three times a day. She continues on cefazolin 2 grams IV every 8 hours. LABORATORY DATA: White count is 9.6, hemoglobin 9.5, hematocrit 28.4, platelets 269, 50% neutrophils, 40% lymphocytes, 5% monocytes. Sodium 141, potassium 4.1, chloride 103, bicarbonate 29, BUN 14, creatinine 0.73, glucose 104, calcium 7.9, magnesium 1.8, AST 12, ALT 18, CRP 0.72. Blood culture and urine culture were positive on 07/31/2016, negative on 08/01/2016. IMPRESSION: 1. Staphylococcus aureus sepsis, most likely of renal origin, CT showed a carbuncle. 2. Severe sacroiliitis on the right side status post Depo-Medrol injection with improving pain with pain management. Most recent pelvis MRI was done on 08/09/2016, showed mild to moderate soft tissue edema in a subcutaneous location with no evidence of abscess or osteomyelitis. PLAN: Antibiotic will be discontinued after three doses tomorrow, and if the patient is stable and ambulatory and independent with physical therapy (PT), she could be discharged home from an infectious disease standpoint.
[2016-08-13 23:59] VITALS: BP 121/58
[2016-08-14 04:00] VITALS: BP 149/62
[2016-08-14] MEDS: levETIRAcetam 750 MG in D5W 100 ML IV SCH ×2 (04:24→15:48)
[2016-08-14] MEDS: SODIUM CHLORIDE 0.9% INJ 10 ML SYR IV SCH ×2 (04:53→16:47)
[2016-08-14 05:08] LABS: BASO % 0.3 % (0.0-1.0); EOS # 0.1 K/mm3 (0.0-0.50); EOS % 1.1 % (0.0-3.0); LARGE UNSTAINED CELL # 0.2 K/mm3 (0.0-0.4); LARGE UNSTAINED CELL % 2.8 % (0.0-4.0); LYMPH # 3.4 K/mm3 (1.5-4.5); LYMPH % 40.7 % (24.0-44.0); MEAN CORPUSCULAR HEMOGLOBIN 32.7 pg (27.0-33.0); MEAN CORPUSCULAR HGB CONC 34.7 g/dl (32.0-36.5); MEAN CORPUSCULAR VOLUME 94.2 fl (80.0-96.0); MONO # 0.4 K/mm3 (0.0-0.8); MONO % 5.1 % (0.0-5.0); NEUTROPHILS # 4.1 K/mm3 (1.8-7.7); NEUTROPHILS % 49.9 % (36.0-66.0); PLATELET COUNT, AUTOMATED 274 k/mm3 (150-450); RED CELL DISTRIBUTION WIDTH 14.8 % (11.5-14.5); WHITE BLOOD COUNT 8.2 K/mm3 (4.0-10.0)
[2016-08-14 05:35] LABS: ALBUMIN 2.8 GM/DL (3.2-5.2); ALBUMIN/GLOBULIN RATIO 0.78 (1.00-1.93); ALKALINE PHOSPHATASE 54 U/L (45-117); ALT/SGPT 6 U/L (12-78); ANION GAP 9 MEQ/L (8-16); AST/SGOT 11 U/L (15-37); BILIRUBIN,TOTAL 0.4 MG/DL (0.2-1.0); BLOOD UREA NITROGEN 14 MG/DL (7-18); CALCIUM LEVEL 8.2 MG/DL (8.8-10.2); CARBON DIOXIDE LEVEL 30 MEQ/L (21-32); CHLORIDE LEVEL 101 MEQ/L (98-107); CREATININE FOR GFR 0.72 MG/DL (0.55-1.02); GLOMERULAR FILTRATION RATE > 60.0 (>39); GLUCOSE, FASTING 125 MG/DL (83-110); MAGNESIUM LEVEL 1.7 MG/DL (1.8-2.4); POTASSIUM SERUM 3.9 MEQ/L (3.5-5.1); SODIUM LEVEL 140 MEQ/L (136-145); TOTAL PROTEIN 6.4 GM/DL (6.4-8.2)
[2016-08-14] MEDS: HEPARIN SOD (PORCINE) 5000 UNITS/ML VIAL SC SCH ×3 (06:34→22:54)
[2016-08-14] MEDS: ONDANSETRON 4MG/2ML VIAL (J2405) IV PRN ×3 (06:35→20:19)
[2016-08-14] MEDS: LEVOTHYROXINE 0.1 MG TAB (100 MCG) PO SCH (06:35)
[2016-08-14] MEDS: MORPHINE 2 MG/ML 1ML SYRINGE IV PRN ×5 (06:35→20:19)
[2016-08-14] MEDS: SODIUM CHLORIDE 0.9% INJ 10 ML SYR IV PRN ×2 (06:36→20:20)
--- NOTE | 2016-08-14 07:33 | EEG ---
DATE OF PROCEDURE: 08/10/2016 REFERRING PHYSICIAN: Dr. Russell Maria EEG NUMBER: [id number] DIAGNOSIS: Tremor. HISTORY: Patient is a 75-year-old woman with history of chronic back pain who was admitted at [facility] due to severe back pain and was also noted to have right arm spasms and shaking. She has tremor of both hands. This EEG was done to rule out epileptic potential and partial seizures. She is currently on Kefzol, Keppra, ramipril, prednisone, amlodipine, Sinemet, primidone etc. TECHNICAL DESCRIPTION: This digital EEG was recorded by 21 scalp, ear and two EKG electrodes and was reviewed in bipolar and referential montages following reformatting in 10-20 international electrode placement system. INTERPRETATION: Patient was noted to be in awake and drowsy states during this EEG. Resting awake background consisted of well-formed posterior dominant rhythm with anterior/posterior gradient comprising of 9 Hz alpha activity measuring 15-40 microvolts in amplitude, which was symmetric and reactive to eye opening. Attenuation of posterior dominant rhythm was seen during transition into drowsiness. Stage I and II sleep was reviewed and were symmetric bilaterally. Hyperventilation could not be performed. Photic stimulation remained unremarkable. EKG revealed normal sinus rhythm with few PACs. No focal, lateralizing or epileptiform abnormalities were seen. No clinical or electrographic seizures were recorded. CONCLUSION: This EEG in awake, drowsy states, stage I and II sleep is within normal limits.
[2016-08-14] MEDS: HumaLOG INSULIN (NovoLOG) PER UNIT SC SCH ×4 (07:43→22:00)
[2016-08-14] MEDS: PERCOCET 5MG/325MG TAB PO PRN (07:44)
[2016-08-14 08:00] VITALS: BP 163/75
[2016-08-14] MEDS: RAMIPRIL 5 MG CAP PO SCH (09:23)
[2016-08-14] MEDS: amLODIPine 5 MG TAB PO SCH (09:23)
[2016-08-14] MEDS: PREGABALIN 50 MG CAP (LYRICA) PO SCH ×2 (09:23→20:17)
[2016-08-14] MEDS: predniSONE 10 MG TAB PO SCH (09:23)
[2016-08-14] MEDS: CARISOPRODOL 350 MG TAB PO SCH ×3 (09:23→20:17)
[2016-08-14] MEDS: METOPROLOL TART 25 MG TABLET PO SCH ×2 (09:23→20:18)
[2016-08-14] MEDS: PREPARATION H SUPP (HEMORRHOID) PR SCH ×2 (09:24→20:17)
[2016-08-14] MEDS: SINEMET 25-100 MG TAB PO SCH ×4 (09:24→20:18)
[2016-08-14 12:00] VITALS: BP 148/76
[2016-08-14 16:00] VITALS: BP 150/70
--- NOTE | 2016-08-14 16:37 | IPNPDOC ---
Text Note Date of Service The patient was seen on 08/14/16 at 16:32. NOTE Subjective: Patient states her right upper extremity spasms have significantly improved since she was started on the antiepileptic agent. Objective: Vitals: (see below) General: No acute distress, laying comfortably in bed. HEENT: Moist mucous membranes. Neck: No JVD or lymphadenopathy Cardiac: RRR. 3/6 Systolic murmur loudest at the 2nd RICS. Pulm: Clear to auscultation b/l. No wheezing, rhonchi Abd: Horizontal scar of prior hysterectomy with no drainage today. NT/ND + BS. Obese Ext: No edema or cyanosis. Neuro: Strength 5/5 LUE/LLE. 4/5 RLE/RUE. CN 2-12 intact. Negative pronator drift. Negative Babinki. DTR 2+ throughout. Laboratory with the lady was having spasm Labs (see below) Images: Renal u/s 07/31/16 IMPRESSION: Negative renal ultrasound. CT abd/pelvis 07/31/16 The liver is of uniform attenuation without mass or defect. There is no intra or extrahepatic biliary ductal dilatation. The spleen is normal. The gallbladder is within normal limits. The pancreas is atrophic and partially fatty-replaced.. There is no evidence of adrenal mass. Both kidneys demonstrate prompt and equal nephrograms. The kidneys are normal in size, shape and configuration. There is no evidence of renal or ureteral mass. No renal or ureteral calculi are identified. There is no hydroureter or hydronephrosis. No evidence for appendicitis. There is no bowel wall thickening. No evidence for small or large bowel obstruction. There is no evidence of abdominal ascites or lymphadenopathy. There is no evidence of intrinsic or extrinsic bladder mass. There is no pelvic ascites or lymphadenopathy. Status post complete hysterectomy. Images of the lung bases show no evidence of pleural or parenchymal mass. There are no pleural effusions. The bony structures are free of lytic or blastic lesions. Multilevel degenerative changes are seen involving the thoracolumbar spine. Scattered calcifications are seen involving the aorta and major branches compatible with atherosclerosis. IMPRESSION: No evidence of acute abdominal or pelvic pathology. CXR 07/31/16 IMPRESSION: No infiltrate seen. Abd wall u/s 08/02/16 ABDOMINAL WALL ULTRASOUND: Real-time sonographic evaluation of the abdominal wall performed in the region of redness. There is no underlying fluid collection. No other underlying soft tissue abnormality is seen. MRI Brain 08/01/16 FINDINGS: The sella and parasellar regions are unremarkable in appearance. The corpus callosum and cerebellar tonsils are of normal configuration and position. There are no intra or extra-axial collections. There is no mass effect or midline shift. There is no evidence of hematoma formation. There is no hydrocephalus. The brain stem shows no mass effects, infarcts or hemorrhage. There are no cerebellopontine tumors. The acoustic nerves are symmetrical. No cerebellar intra-axial pathology delineated. The fourth ventricle and aqueduct are normal. No abnormalities of the optic nerves are identified. No dural or subdural masses or collections are detected. No evidence of restricted diffusion. There is evidence for generalized symmetrical dilatation of the ventricles and cortical sulci consistent with parenchymal atrophy. There are bilateral periventricular and subcortical T2 and FLAIR hyperintensities compatible with chronic white matter ischemic disease. The visualized arterial structures demonstrate normal appearing flow voids. The VII and VIII nerve bundles are visualized and are unremarkable in appearance. Mucosal thickening is seen involving bilateral ethmoid and maxillary sinuses compatible with chronic sinusitis. IMPRESSION: 1. Generalized age-appropriate parenchymal atrophy. 2. Bilateral periventricular and subcortical white matter chronic ischemic changes. 3. Chronic ethmoid and maxillary sinusitis. 4. No evidence of acute intracranial pathology. MRI Cervical spine 08/01/16 IMPRESSION: 1. At C3-C4, 1 mm bulge indents the ventral thecal sac. Canal and foramina are patent. 2. At C4-C5, central herniated disc measures 7 x 1.5 mm indent the ventral thecal sac. Canal and foramina are patent. 3. At C5-C6, broad based herniated disc is seen across the disc space measures 20 x 3 mm in contact with the cord. Canal is stenotic. There is moderate bilateral foraminal stenosis. Spondylolisthesis and uncovertebral joint hypertrophy contribute. 4. At C6-C7, 1 mm bulge indents the ventral thecal sac. Canal and foramina are patent. 5. Multilevel spondylolisthesis. 6. Straightening of cervical lordosis is compatible with muscle spasm. MRI Lumbar spine 08/01/16 IMPRESSION: 1. Chronic compression fracture involving L1 vertebral body. No acute fractures. 2. No evidence of an abscess. No abnormal enhancement is demonstrated. 3. At L5-S1, central herniated disc indents the ventral thecal sac. There is superimposed bulge. Both foramina are narrowed. Canal is mildly stenotic. Hypertrophic facet disease and ligamentum flavum hypertrophy contribute. Left facet joint effusion is present. 4. At L4-L5, diffuse bulge is seen. There is mild to moderate bilateral foraminal stenosis and mild to moderate central canal stenosis. Hypertrophic facet disease and ligamentum flavum hypertrophy contribute. Left facet joint effusion is present. 5. At L3-L4, bilobed bulge is seen. Both foramina are narrowed. Canal is patent. Hypertrophic facet disease is seen. MRI Thoracic spine 08/01/16 IMPRESSION: 1. There is evidence of a mild compression fracture deformity involving L1 vertebral body likely chronic. 2. Herniated discs at T11-T12 and T12-L1 centrally which in contact with the cord with canal stenosis. Foramina are patent. 3. There is no evidence of abnormal enhancement and no evidence of an abscess. Assessment/Plan 1. Sepsis 2/2 MSSA. Patient will be completing her antibiotics today. Appreciate Dr. Charles's input. MRIs of the cervical/lumbar/thoracic spine negative for abscess. Echocardiogram negative for vegetations. I have spoken to Dr. Hernandes given murmur, with recommended holding off on a GAIL as pt is afebrile with negative repeat blood cx. CT abdomen and pelvis with possible carbuncle left kidney which will need a repeat CAT scan once the patient's bacteremia has resolved. I also spoke with Dr. Segura who also believes that this may be a cyst however a repeat CAT scan would be warranted to ensure resolution. 2. History of CVA with baseline weakness on the right side. MRI of the brain negative for acute cva. In the meantime patient is on broad-spectrum antibiotics. IV fluids. 3. Diabetes mellitus - continue to hold metformin. Sliding scale insulin 4. Hypothyroidism- continue Synthroid 5. Hypertension- continue ramipril 6. History of Recurrent nephrolithiasis 7. 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 I have placed a call out to Dr. Will, the orthopedic sales product specialist who review the MRI's and requested a repeat MRI cervical spine without contrast, which will be done. 8. Seizures- patient was having right upper extremity spasm-like motions which have since subsided since starting Keppra. Patient's currently on Sinemet and Keppra per neurology DVT prophy: Heparin subcutaneous Patient's the lower back pain is improving however is not optimized. Will increase her pain medications in the hopes that she will have increased participation with physical therapy. Plan to discharge the 24-48 hours. VS,Fishbone, I+O VS, Fishbone, I+O Laboratory Tests 08/14/16 04:52 Calcium Level 8.2 L, Aspartate Amino Transf (AST/SGOT) 11 L, Alanine Aminotransferase (ALT/SGPT) 6 L, Alkaline Phosphatase 54, Total Bilirubin 0.4, Total Protein 6.4, Albumin 2.8 L, Red Blood Count 3.06 L, Mean Corpuscular Volume 94.2, Mean Corpuscular Hemoglobin 32.7, Mean Corpuscular Hemoglobin Concent 34.7, Red Cell Distribution Width 14.8 H, Neutrophils (%) (Auto) 49.9, Lymphocytes (%) (Auto) 40.7, Monocytes (%) (Auto) 5.1 H, Eosinophils (%) (Auto) 1.1, Basophils (%) (Auto) 0.3, Neutrophils # (Auto) 4.1, Lymphocytes # (Auto) 3.4, Monocytes # (Auto) 0.4, Eosinophils # (Auto) 0.1, Basophils # (Auto) 0.0 Vital Signs Date Time Temp Pulse Resp B/P Pulse Ox O2 Delivery O2 Flow Rate FiO2 08/14/16 14:09 18 Room Air 08/14/16 12:00 96.6 72 148/76 97 08/13/16 15:45 2.0 I&O- Last 24 Hours up to 6 AM 08/14/16 06:00 Intake Total 1815 ml Output Total 820 ml Balance 995 ml ARABELLA PULLIAM MD Aug 14, 2016 16:37
[2016-08-14 20:00] VITALS: BP 150/70
[2016-08-14] MEDS: PRIMIDONE 50 MG TAB PO SCH (20:17)
[2016-08-15] VITALS (7 sets, daily range): BP systolic 103–155; BP diastolic 55–87
[2016-08-15] MEDS: PERCOCET 5MG/325MG TAB PO PRN ×5 (00:55→22:34)
[2016-08-15] MEDS: levETIRAcetam 750 MG in D5W 100 ML IV SCH ×2 (03:37→18:04)
[2016-08-15] MEDS: MORPHINE 2 MG/ML 1ML SYRINGE IV PRN ×4 (03:37→21:14)
[2016-08-15] MEDS: ONDANSETRON 4MG/2ML VIAL (J2405) IV PRN ×2 (03:38→12:29)
[2016-08-15] MEDS: SODIUM CHLORIDE 0.9% INJ 10 ML SYR IV SCH ×2 (05:12→18:04)
[2016-08-15] MEDS: LEVOTHYROXINE 0.1 MG TAB (100 MCG) PO SCH (05:12)
[2016-08-15] MEDS: HEPARIN SOD (PORCINE) 5000 UNITS/ML VIAL SC SCH ×3 (05:12→21:11)
[2016-08-15 05:39] LABS: BASO % 0.2 % (0.0-1.0); EOS # 0.1 K/mm3 (0.0-0.50); EOS % 1.2 % (0.0-3.0); LARGE UNSTAINED CELL # 0.2 K/mm3 (0.0-0.4); LARGE UNSTAINED CELL % 2.4 % (0.0-4.0); LYMPH # 3.5 K/mm3 (1.5-4.5); LYMPH % 39.9 % (24.0-44.0); MEAN CORPUSCULAR HEMOGLOBIN 31.1 pg (27.0-33.0); MEAN CORPUSCULAR VOLUME 94.1 fl (80.0-96.0); MONO # 0.5 K/mm3 (0.0-0.8); NEUTROPHILS # 4.4 K/mm3 (1.8-7.7); NEUTROPHILS % 50.2 % (36.0-66.0); PLATELET COUNT, AUTOMATED 274 k/mm3 (150-450); WHITE BLOOD COUNT 8.8 K/mm3 (4.0-10.0)
[2016-08-15 05:55] LABS: ALBUMIN/GLOBULIN RATIO 0.86 (1.00-1.93); ALKALINE PHOSPHATASE 57 U/L (45-117); ALT/SGPT 7 U/L (12-78); ANION GAP 10 MEQ/L (8-16); AST/SGOT 6 U/L (15-37); BILIRUBIN,TOTAL 0.4 MG/DL (0.2-1.0); BLOOD UREA NITROGEN 15 MG/DL (7-18); CALCIUM LEVEL 8.2 MG/DL (8.8-10.2); CARBON DIOXIDE LEVEL 30 MEQ/L (21-32); CHLORIDE LEVEL 100 MEQ/L (98-107); GLOMERULAR FILTRATION RATE > 60.0 (>39); GLUCOSE, FASTING 113 MG/DL (83-110); MAGNESIUM LEVEL 1.9 MG/DL (1.8-2.4); POTASSIUM SERUM 4.4 MEQ/L (3.5-5.1); SODIUM LEVEL 140 MEQ/L (136-145); TOTAL PROTEIN 6.5 GM/DL (6.4-8.2)
[2016-08-15] MEDS: amLODIPine 5 MG TAB PO SCH (08:21)
[2016-08-15] MEDS: SINEMET 25-100 MG TAB PO SCH ×4 (08:21→21:13)
[2016-08-15] MEDS: RAMIPRIL 5 MG CAP PO SCH (08:21)
[2016-08-15] MEDS: predniSONE 10 MG TAB PO SCH (08:22)
[2016-08-15] MEDS: CARISOPRODOL 350 MG TAB PO SCH ×3 (08:22→21:11)
[2016-08-15] MEDS: HumaLOG INSULIN (NovoLOG) PER UNIT SC SCH ×4 (08:22→21:00)
[2016-08-15] MEDS: PREGABALIN 50 MG CAP (LYRICA) PO SCH ×2 (08:22→21:13)
[2016-08-15] MEDS: PREPARATION H SUPP (HEMORRHOID) PR SCH ×2 (08:23→21:00)
[2016-08-15] MEDS: METOPROLOL TART 25 MG TABLET PO SCH (08:25)
[2016-08-15] MEDS ORDERED: MAG SULF 1GM/100ML (MAG RUN) 1 GM in APPROPRIATE DILUENT 1 EA IV ONE (13:45)
--- NOTE | 2016-08-15 15:58 | IPNPDOC ---
Text Note Date of Service The patient was seen on 08/15/16 at 15:53. NOTE Subjective: Patient states her right upper extremity spasm has increased today. Objective: Vitals: (see below) General: No acute distress, laying comfortably in bed. HEENT: Moist mucous membranes. Neck: No JVD or lymphadenopathy Cardiac: RRR. 3/6 Systolic murmur loudest at the 2nd RICS. Pulm: Clear to auscultation b/l. No wheezing, rhonchi Abd: Horizontal scar of prior hysterectomy with no drainage today. NT/ND + BS. Obese Ext: No edema or cyanosis. Neuro: Strength 5/5 LUE/LLE. 4/5 RLE/RUE. RUE spasm. CN 2-12 intact. Negative pronator drift. Negative Babinki. DTR 2+ throughout. Laboratory with the lady was having spasm Labs (see below) Images: Renal u/s 07/31/16 IMPRESSION: Negative renal ultrasound. CT abd/pelvis 07/31/16 The liver is of uniform attenuation without mass or defect. There is no intra or extrahepatic biliary ductal dilatation. The spleen is normal. The gallbladder is within normal limits. The pancreas is atrophic and partially fatty-replaced.. There is no evidence of adrenal mass. Both kidneys demonstrate prompt and equal nephrograms. The kidneys are normal in size, shape and configuration. There is no evidence of renal or ureteral mass. No renal or ureteral calculi are identified. There is no hydroureter or hydronephrosis. No evidence for appendicitis. There is no bowel wall thickening. No evidence for small or large bowel obstruction. There is no evidence of abdominal ascites or lymphadenopathy. There is no evidence of intrinsic or extrinsic bladder mass. There is no pelvic ascites or lymphadenopathy. Status post complete hysterectomy. Images of the lung bases show no evidence of pleural or parenchymal mass. There are no pleural effusions. The bony structures are free of lytic or blastic lesions. Multilevel degenerative changes are seen involving the thoracolumbar spine. Scattered calcifications are seen involving the aorta and major branches compatible with atherosclerosis. IMPRESSION: No evidence of acute abdominal or pelvic pathology. CXR 07/31/16 IMPRESSION: No infiltrate seen. Abd wall u/s 08/02/16 ABDOMINAL WALL ULTRASOUND: Real-time sonographic evaluation of the abdominal wall performed in the region of redness. There is no underlying fluid collection. No other underlying soft tissue abnormality is seen. MRI Brain 08/01/16 FINDINGS: The sella and parasellar regions are unremarkable in appearance. The corpus callosum and cerebellar tonsils are of normal configuration and position. There are no intra or extra-axial collections. There is no mass effect or midline shift. There is no evidence of hematoma formation. There is no hydrocephalus. The brain stem shows no mass effects, infarcts or hemorrhage. There are no cerebellopontine tumors. The acoustic nerves are symmetrical. No cerebellar intra-axial pathology delineated. The fourth ventricle and aqueduct are normal. No abnormalities of the optic nerves are identified. No dural or subdural masses or collections are detected. No evidence of restricted diffusion. There is evidence for generalized symmetrical dilatation of the ventricles and cortical sulci consistent with parenchymal atrophy. There are bilateral periventricular and subcortical T2 and FLAIR hyperintensities compatible with chronic white matter ischemic disease. The visualized arterial structures demonstrate normal appearing flow voids. The VII and VIII nerve bundles are visualized and are unremarkable in appearance. Mucosal thickening is seen involving bilateral ethmoid and maxillary sinuses compatible with chronic sinusitis. IMPRESSION: 1. Generalized age-appropriate parenchymal atrophy. 2. Bilateral periventricular and subcortical white matter chronic ischemic changes. 3. Chronic ethmoid and maxillary sinusitis. 4. No evidence of acute intracranial pathology. MRI Cervical spine 08/01/16 IMPRESSION: 1. At C3-C4, 1 mm bulge indents the ventral thecal sac. Canal and foramina are patent. 2. At C4-C5, central herniated disc measures 7 x 1.5 mm indent the ventral thecal sac. Canal and foramina are patent. 3. At C5-C6, broad based herniated disc is seen across the disc space measures 20 x 3 mm in contact with the cord. Canal is stenotic. There is moderate bilateral foraminal stenosis. Spondylolisthesis and uncovertebral joint hypertrophy contribute. 4. At C6-C7, 1 mm bulge indents the ventral thecal sac. Canal and foramina are patent. 5. Multilevel spondylolisthesis. 6. Straightening of cervical lordosis is compatible with muscle spasm. MRI Lumbar spine 08/01/16 IMPRESSION: 1. Chronic compression fracture involving L1 vertebral body. No acute fractures. 2. No evidence of an abscess. No abnormal enhancement is demonstrated. 3. At L5-S1, central herniated disc indents the ventral thecal sac. There is superimposed bulge. Both foramina are narrowed. Canal is mildly stenotic. Hypertrophic facet disease and ligamentum flavum hypertrophy contribute. Left facet joint effusion is present. 4. At L4-L5, diffuse bulge is seen. There is mild to moderate bilateral foraminal stenosis and mild to moderate central canal stenosis. Hypertrophic facet disease and ligamentum flavum hypertrophy contribute. Left facet joint effusion is present. 5. At L3-L4, bilobed bulge is seen. Both foramina are narrowed. Canal is patent. Hypertrophic facet disease is seen. MRI Thoracic spine 08/01/16 IMPRESSION: 1. There is evidence of a mild compression fracture deformity involving L1 vertebral body likely chronic. 2. Herniated discs at T11-T12 and T12-L1 centrally which in contact with the cord with canal stenosis. Foramina are patent. 3. There is no evidence of abnormal enhancement and no evidence of an abscess. Assessment/Plan 1. Sepsis 2/2 MSSA. Patient will be completing her antibiotics 08/14/16. Appreciate Dr. Charles's input. MRIs of the cervical/lumbar/thoracic spine negative for abscess. Echocardiogram negative for vegetations. I have spoken to Dr. Hernandes given murmur, with recommended holding off on a GAIL as pt is afebrile with negative repeat blood cx. CT abdomen and pelvis with possible carbuncle left kidney which will need a repeat CAT scan once the patient's bacteremia has resolved. I also spoke with Dr. Segura who also believes that this may be a cyst however a repeat CAT scan would be warranted to ensure resolution. 2. History of CVA with baseline weakness on the right side. MRI of the brain negative for acute cva. 3. Diabetes mellitus - continue to hold metformin. Sliding scale insulin 4. Hypothyroidism- continue Synthroid 5. Hypertension- continue ramipril 6. History of Recurrent nephrolithiasis 7. 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 8. Seizures- patient was having right upper extremity spasm-like increased today. On sinemet, Keppra, and primidone per neurology. Spoke with Dr. Dyson, with rec. to increase primidone to 50mg BID and he will see pt today. DVT prophy: Heparin subcutaneous VS,Fishbone, I+O VS, Fishbone, I+O Laboratory Tests 08/15/16 05:20 Calcium Level 8.2 L, Aspartate Amino Transf (AST/SGOT) 6 L, Alanine Aminotransferase (ALT/SGPT) 7 L, Alkaline Phosphatase 57, Total Bilirubin 0.4, Total Protein 6.5, Albumin 3.0 L, Red Blood Count 3.26 L, Mean Corpuscular Volume 94.1, Mean Corpuscular Hemoglobin 31.1, Mean Corpuscular Hemoglobin Concent 33.0, Red Cell Distribution Width 15.0 H, Neutrophils (%) (Auto) 50.2, Lymphocytes (%) (Auto) 39.9, Monocytes (%) (Auto) 6.0 H, Eosinophils (%) (Auto) 1.2, Basophils (%) (Auto) 0.2, Neutrophils # (Auto) 4.4, Lymphocytes # (Auto) 3.5, Monocytes # (Auto) 0.5, Eosinophils # (Auto) 0.1, Basophils # (Auto) 0.0 Vital Signs Date Time Temp Pulse Resp B/P Pulse Ox O2 Delivery O2 Flow Rate FiO2 08/15/16 15:24 18 08/15/16 12:00 97.5 72 120/63 94 Room Air 08/13/16 15:45 2.0 I&O- Last 24 Hours up to 6 AM 08/15/16 05:59 Intake Total 2640 ml Output Total 1590 ml Balance 1050 ml ARABELLA PULLIAM MD Aug 15, 2016 15:58
[2016-08-15] MEDS: METOPROLOL TART 50 MG TAB PO SCH (21:12)
[2016-08-15] MEDS: PRIMIDONE 50 MG TAB PO SCH (21:13)
[2016-08-16 04:41] VITALS: BP 129/61
[2016-08-16] MEDS: levETIRAcetam 750 MG in D5W 100 ML IV SCH (05:03)
[2016-08-16] MEDS: HEPARIN SOD (PORCINE) 5000 UNITS/ML VIAL SC SCH ×2 (05:05→12:32)
[2016-08-16] MEDS: SODIUM CHLORIDE 0.9% INJ 10 ML SYR IV SCH (05:06)
[2016-08-16] MEDS: PERCOCET 5MG/325MG TAB PO PRN ×3 (05:07→15:41)
[2016-08-16] MEDS: LEVOTHYROXINE 0.1 MG TAB (100 MCG) PO SCH (05:07)
[2016-08-16 06:21] LABS: BASO % 0.3 % (0.0-1.0); EOS # 0.1 K/mm3 (0.0-0.50); EOS % 1.6 % (0.0-3.0); LARGE UNSTAINED CELL # 0.2 K/mm3 (0.0-0.4); LARGE UNSTAINED CELL % 2.3 % (0.0-4.0); LYMPH # 3.8 K/mm3 (1.5-4.5); LYMPH % 47.9 % (24.0-44.0); MEAN CORPUSCULAR HEMOGLOBIN 31.6 pg (27.0-33.0); MEAN CORPUSCULAR HGB CONC 33.5 g/dl (32.0-36.5); MEAN CORPUSCULAR VOLUME 94.2 fl (80.0-96.0); MONO # 0.5 K/mm3 (0.0-0.8); MONO % 6.6 % (0.0-5.0); NEUTROPHILS # 3.3 K/mm3 (1.8-7.7); NEUTROPHILS % 41.4 % (36.0-66.0); PLATELET COUNT, AUTOMATED 265 k/mm3 (150-450); RED CELL DISTRIBUTION WIDTH 15.1 % (11.5-14.5); WHITE BLOOD COUNT 7.9 K/mm3 (4.0-10.0)
[2016-08-16 06:26] LABS: ALBUMIN/GLOBULIN RATIO 0.75 (1.00-1.93); ALKALINE PHOSPHATASE 53 U/L (45-117); ALT/SGPT 10 U/L (12-78); ANION GAP 7 MEQ/L (8-16); AST/SGOT 16 U/L (15-37); BILIRUBIN,TOTAL 0.6 MG/DL (0.2-1.0); BLOOD UREA NITROGEN 13 MG/DL (7-18); CALCIUM LEVEL 8.1 MG/DL (8.8-10.2); CARBON DIOXIDE LEVEL 31 MEQ/L (21-32); CHLORIDE LEVEL 99 MEQ/L (98-107); CREATININE FOR GFR 0.78 MG/DL (0.55-1.02); GLOMERULAR FILTRATION RATE > 60.0 (>39); GLUCOSE, FASTING 118 MG/DL (83-110); MAGNESIUM LEVEL 1.9 MG/DL (1.8-2.4); POTASSIUM SERUM 3.7 MEQ/L (3.5-5.1); SODIUM LEVEL 137 MEQ/L (136-145)
[2016-08-16 07:52] VITALS: BP 182/79
[2016-08-16 08:07] VITALS: BP 148/74
[2016-08-16] MEDS: METOPROLOL TART 50 MG TAB PO SCH (08:07)
[2016-08-16] MEDS: amLODIPine 5 MG TAB PO SCH (08:07)
[2016-08-16] MEDS: PREGABALIN 50 MG CAP (LYRICA) PO SCH (08:07)
[2016-08-16] MEDS: predniSONE 10 MG TAB PO SCH (08:07)
[2016-08-16] MEDS: CARISOPRODOL 350 MG TAB PO SCH ×2 (08:07→15:40)
[2016-08-16] MEDS: RAMIPRIL 5 MG CAP PO SCH (08:08)
[2016-08-16] MEDS: HumaLOG INSULIN (NovoLOG) PER UNIT SC SCH ×2 (08:08→12:32)
[2016-08-16] MEDS: PREPARATION H SUPP (HEMORRHOID) PR SCH (08:08)
[2016-08-16] MEDS: SINEMET 25-100 MG TAB PO SCH ×2 (08:08→13:00)
[2016-08-16] MEDS: PRIMIDONE 50 MG TAB PO SCH (08:08)
[2016-08-16 10:19] VITALS: BP 142/68
[2016-08-16 12:00] VITALS: BP 110/57
[2016-08-16] MEDS ORDERED: CARB25TA PO (13:53)
[2016-08-16] MEDS ORDERED: MYSO50TA5 PO (13:53)
[2016-08-16] MEDS ORDERED: KEPP1TAB2 PO (13:53)
[2016-08-16] MEDS ORDERED: LOPR50TA PO (13:53)
[2016-08-16] MEDS ORDERED: PERCOCET PO (13:53)
[2016-08-16] MEDS ORDERED: AMLO5TAB2 PO (13:53)
--- NOTE | 2016-08-16 18:15 | DS.PDOC ---
Discharge Summary General Date of Admission Jul 31, 2016 at 22:24 Date of Discharge Aug 16, 2016 at 16:33 Attending Physician: ARABELLA PULLIAM MD Specialist/Consultants Involve: Yuliya Charles MD Specialist/Consultants Involve Dr. Yuko Larkin Discharge Summary PROCEDURES PERFORMED DURING STAY: None. COMPLICATIONS/CHIEF COMPLAINT: Hypotension,Low Back Pain ADMISSION/DISCHARGE DIAGNOSES: 1. Sepsis secondary to MSSA bacteremia likely from renal carbuncle 2. Likely partial seizure with right upper extremity spasms 3. History of CVA with baseline right-sided weakness 4. Diabetes mellitus 5. Hypothyroidism 6. Hypertension 7. Recurrent nephrolithiasis 8. Spinal stenosis with degenerative disc disease HISTORY OF PRESENT ILLNESS/HOSPITAL COURSE: This is a 75-year-old female with a past medical history of CVA with baseline right-sided weakness, diabetes, hypothyroidism, degenerative disc disease and stenosis who presents with intractable back pain after recently having a spinal injection for pain control by Dr. Moreno 10 days prior to admission. Patient had been noted to have sepsis secondary to MSSA bacteremia. On closer look of further imaging of the patient was noted to likely have a renal carbuncle. Dr. Charles's input was appreciated and the patient completed her course of antibiotics. The patient also had MRIs of her spine which were negative for abscess. During the course of hospitalization patient also had tremors of her right upper extremity, evaluated by neurology and thought to be possibly secondary to partial seizure. Patient was maintained on Keppra as well as primidone, and Sinemet per neurology. Her doses were increased and the tremor has significantly resolved. The patient's dyspnea with physical therapy and has been cleared for discharge. DISCHARGE MEDICATIONS: Please see below. ALLERGIES: Please see below. PHYSICAL EXAMINATION ON DISCHARGE: VITAL SIGNS: Please see below. General: No acute distress, laying comfortably in bed. HEENT: Moist mucous membranes. Neck: No JVD or lymphadenopathy Cardiac: RRR. 3/6 Systolic murmur loudest at the 2nd RICS. Pulm: Clear to auscultation b/l. No wheezing, rhonchi Abd: Horizontal scar of prior hysterectomy with no drainage today. NT/ND + BS. Obese Ext: No edema or cyanosis. Neuro: Strength 5/5 LUE/LLE. 4/5 RLE/RUE. No RUE spasm. CN 2-12 intact. Negative pronator drift. Negative Babinki. DTR 2+ throughout. LABORATORY DATA: Please see below. IMAGING: Renal u/s 07/31/16 IMPRESSION: Negative renal ultrasound. CT abd/pelvis 07/31/16 The liver is of uniform attenuation without mass or defect. There is no intra or extrahepatic biliary ductal dilatation. The spleen is normal. The gallbladder is within normal limits. The pancreas is atrophic and partially fatty-replaced.. There is no evidence of adrenal mass. Both kidneys demonstrate prompt and equal nephrograms. The kidneys are normal in size, shape and configuration. There is no evidence of renal or ureteral mass. No renal or ureteral calculi are identified. There is no hydroureter or hydronephrosis. No evidence for appendicitis. There is no bowel wall thickening. No evidence for small or large bowel obstruction. There is no evidence of abdominal ascites or lymphadenopathy. There is no evidence of intrinsic or extrinsic bladder mass. There is no pelvic ascites or lymphadenopathy. Status post complete hysterectomy. Images of the lung bases show no evidence of pleural or parenchymal mass. There are no pleural effusions. The bony structures are free of lytic or blastic lesions. Multilevel degenerative changes are seen involving the thoracolumbar spine. Scattered calcifications are seen involving the aorta and major branches compatible with atherosclerosis. IMPRESSION: No evidence of acute abdominal or pelvic pathology. CXR 07/31/16 IMPRESSION: No infiltrate seen. Abd wall u/s 08/02/16 ABDOMINAL WALL ULTRASOUND: Real-time sonographic evaluation of the abdominal wall performed in the region of redness. There is no underlying fluid collection. No other underlying soft tissue abnormality is seen. MRI Brain 08/01/16 FINDINGS: The sella and parasellar regions are unremarkable in appearance. The corpus callosum and cerebellar tonsils are of normal configuration and position. There are no intra or extra-axial collections. There is no mass effect or midline shift. There is no evidence of hematoma formation. There is no hydrocephalus. The brain stem shows no mass effects, infarcts or hemorrhage. There are no cerebellopontine tumors. The acoustic nerves are symmetrical. No cerebellar intra-axial pathology delineated. The fourth ventricle and aqueduct are normal. No abnormalities of the optic nerves are identified. No dural or subdural masses or collections are detected. No evidence of restricted diffusion. There is evidence for generalized symmetrical dilatation of the ventricles and cortical sulci consistent with parenchymal atrophy. There are bilateral periventricular and subcortical T2 and FLAIR hyperintensities compatible with chronic white matter ischemic disease. The visualized arterial structures demonstrate normal appearing flow voids. The VII and VIII nerve bundles are visualized and are unremarkable in appearance. Mucosal thickening is seen involving bilateral ethmoid and maxillary sinuses compatible with chronic sinusitis. IMPRESSION: 1. Generalized age-appropriate parenchymal atrophy. 2. Bilateral periventricular and subcortical white matter chronic ischemic changes. 3. Chronic ethmoid and maxillary sinusitis. 4. No evidence of acute intracranial pathology. MRI Cervical spine 08/01/16 IMPRESSION: 1. At C3-C4, 1 mm bulge indents the ventral thecal sac. Canal and foramina are patent. 2. At C4-C5, central herniated disc measures 7 x 1.5 mm indent the ventral thecal sac. Canal and foramina are patent. 3. At C5-C6, broad based herniated disc is seen across the disc space measures 20 x 3 mm in contact with the cord. Canal is stenotic. There is moderate bilateral foraminal stenosis. Spondylolisthesis and uncovertebral joint hypertrophy contribute. 4. At C6-C7, 1 mm bulge indents the ventral thecal sac. Canal and foramina are patent. 5. Multilevel spondylolisthesis. 6. Straightening of cervical lordosis is compatible with muscle spasm. MRI Lumbar spine 08/01/16 IMPRESSION: 1. Chronic compression fracture involving L1 vertebral body. No acute fractures. 2. No evidence of an abscess. No abnormal enhancement is demonstrated. 3. At L5-S1, central herniated disc indents the ventral thecal sac. There is superimposed bulge. Both foramina are narrowed. Canal is mildly stenotic. Hypertrophic facet disease and ligamentum flavum hypertrophy contribute. Left facet joint effusion is present. 4. At L4-L5, diffuse bulge is seen. There is mild to moderate bilateral foraminal stenosis and mild to moderate central canal stenosis. Hypertrophic facet disease and ligamentum flavum hypertrophy contribute. Left facet joint effusion is present. 5. At L3-L4, bilobed bulge is seen. Both foramina are narrowed. Canal is patent. Hypertrophic facet disease is seen. MRI Thoracic spine 08/01/16 IMPRESSION: 1. There is evidence of a mild compression fracture deformity involving L1 vertebral body likely chronic. 2. Herniated discs at T11-T12 and T12-L1 centrally which in contact with the cord with canal stenosis. Foramina are patent. 3. There is no evidence of abnormal enhancement and no evidence of an abscess. VTE Prophylaxis ordered?: Yes DISCHARGE CONDITION: Stable DISPOSITION: Home Health Service ACTIVITY: As tolerated DIET: As tolerated DISCHARGE PLAN AND INSTRUCTIONS: 1. Follow-up with PCP, cardiology, orthopedics, in 1-2 weeks. TIME SPENT ON DISCHARGE: Greater than 30 minutes. Vital Signs/I&Os Vital Signs Date Time Temp Pulse Resp B/P Pulse Ox O2 Delivery O2 Flow Rate FiO2 08/16/16 16:11 18 08/16/16 12:00 97.1 64 110/57 92 Room Air 08/13/16 15:45 2.0 I&O- Last 24 Hours up to 6 AM 08/16/16 06:00 Intake Total 1050 ml Output Total 550 ml Balance 500 ml Laboratory Data Labs 24H Laboratory Tests 2 08/15/16 20:54: Bedside Glucose (Misc Panel) 156H 08/16/16 05:48: Blood Urea Nitrogen 13, Creatinine 0.78, Sodium Level 137, Potassium Level 3.7, Chloride Level 99, Carbon Dioxide Level 31, Calcium Level 8.1L, Aspartate Amino Transf (AST/SGOT) 16, Alanine Aminotransferase (ALT/SGPT) 10L, Alkaline Phosphatase 53, Total Bilirubin 0.6, Total Protein 7.0, Albumin 3.0L, Albumin/ Globulin Ratio 0.75L, Anion Gap 7L, White Blood Count 7.9, Red Blood Count 3.08L , Hemoglobin 9.7L, Hematocrit 29.1L, Mean Corpuscular Volume 94.2, Mean Corpuscular Hemoglobin 31.6, Mean Corpuscular Hemoglobin Concent 33.5, Red Cell Distribution Width 15.1H, Platelet Count 265, Neutrophils (%) (Auto) 41.4, Lymphocytes (%) (Auto) 47.9H, Monocytes (%) (Auto) 6.6H, Eosinophils (%) (Auto) 1.6, Basophils (%) (Auto) 0.3, Neutrophils # (Auto) 3.3, Lymphocytes # (Auto) 3.8, Monocytes # (Auto) 0.5, Eosinophils # (Auto) 0.1, Basophils # (Auto) 0.0, C -Reactive Protein, Quantitative 0.88H, Glomerular Filtration Rate > 60.0, Large Unclassified Cells # 0.2, Large Unclassified Cells % 2.3, Magnesium Level 1.9 08/16/16 11:49: Bedside Glucose (Misc Panel) 170H CBC/BMP Laboratory Tests 08/16/16 05:48 Calcium Level 8.1 L, Aspartate Amino Transf (AST/SGOT) 16, Alanine Aminotransferase (ALT/SGPT) 10 L, Alkaline Phosphatase 53, Total Bilirubin 0.6, Total Protein 7.0, Albumin 3.0 L, Red Blood Count 3.08 L, Mean Corpuscular Volume 94.2, Mean Corpuscular Hemoglobin 31.6, Mean Corpuscular Hemoglobin Concent 33.5, Red Cell Distribution Width 15.1 H, Neutrophils (%) (Auto) 41.4, Lymphocytes (%) (Auto) 47.9 H, Monocytes (%) (Auto) 6.6 H, Eosinophils (%) (Auto ) 1.6, Basophils (%) (Auto) 0.3, Neutrophils # (Auto) 3.3, Lymphocytes # (Auto) 3.8, Monocytes # (Auto) 0.5, Eosinophils # (Auto) 0.1, Basophils # (Auto) 0.0 FSBS Laboratory Tests Test 08/15/16 20:54 08/16/16 11:49 Range/Units Bedside Glucose (Misc Panel) 156 170 83-110 MG/DL Medications Scheduled Amlodipine Besylate (Amlodipine Besylate) 5 Mg Tab 5 MG PO DAILY Carbidopa/Levodopa (Carbidopa/Levodopa 25-100 mg) 1 Tab Tab 0.5 TAB PO QID Levetiracetam (Keppra) 750 Mg Tab 750 MG PO BID Levothyroxine Sodium (Synthroid) 100 Mcg Tab 100 MCG PO DAILY Metformin Hydrochloride (Metformin HCl) 500 Mg Tab 500 MG PO BID Metoprolol Tartrate (Lopressor) 50 Mg Tab 50 MG PO BID Prednisone (Prednisone) 10 Mg Tab 10 MG PO DAILY Primidone (Mysoline) 50 Mg Tab 50 MG PO BID Ramipril (Ramipril) 10 Mg Cap 10 MG PO DAILY Scheduled PRN Oxycodone/Acetaminophen (Percocet 5MG/325MG Tablet) 1 Tab Tab 2 TAB PO Q4HP PRN PRN MILD/MODERATE PAIN (PS 1-7) Allergies Coded Allergies: Sulfa Drugs (Verified Allergy, Intermediate, HIVES, 11/10/12) Sulfa Drugs Cross Reactors (Verified Allergy, Intermediate, HIVES, 11/10/12) ARABELLA PULLIAM MD Aug 16, 2016 18:15
== END 2016-08-16 16:33 | disposition home health service (06) | DRG 871 ==
LOC: M ED 11:21 → M ED INP 22:24 → M MS5PR 08-01 00:45 → M PCU 08-01 14:35 → M RR INP 08-07 13:49 → M PCU 08-07 13:57
PROVIDERS: ADMIT Internal Medicine; ATTEND Internal Medicine
PROC: 05HB33Z Insertion of Infusion Device into Right Basilic Vein, Percutaneous Approach (ICD-10-PCS; principal; 2016-08-09)
DX: A41.01 Sepsis due to Methicillin susceptible Staphylococcus aureus (principal); N15.1 Renal and perinephric abscess; N39.0 Urinary tract infection, site not specified; I69.351 Hemiplegia and hemiparesis following cerebral infarction affecting right dominant side; M48.56XA Collapsed vertebra, not elsewhere classified, lumbar region, initial encounter for fracture; M48.06 Spinal stenosis, lumbar region; I10 Essential (primary) hypertension; E03.9 Hypothyroidism, unspecified; M51.34 Other intervertebral disc degeneration, thoracic region; I67.2 Cerebral atherosclerosis; I73.9 Peripheral vascular disease, unspecified; M51.14 Intervertebral disc disorders with radiculopathy, thoracic region; M51.16 Intervertebral disc disorders with radiculopathy, lumbar region; J01.01 Acute recurrent maxillary sinusitis; I72.8 Aneurysm of other specified arteries; E66.9 Obesity, unspecified; J01.21 Acute recurrent ethmoidal sinusitis; G25.0 Essential tremor; M50.10 Cervical disc disorder with radiculopathy, unspecified cervical region; G25.3 Myoclonus; M46.1 Sacroiliitis, not elsewhere classified; I27.2 Other secondary pulmonary hypertension; E11.9 Type 2 diabetes mellitus without complications; Z87.442 Personal history of urinary calculi; Z79.84 Long term (current) use of oral hypoglycemic drugs; Z79.899 Other long term (current) drug therapy; Z79.52 Long term (current) use of systemic steroids; Z90.710 Acquired absence of both cervix and uterus; Z68.29 Body mass index [BMI] 29.0-29.9, adult

== ENCOUNTER → 2016-10-01 | Outpatient (REF) | payer MEDICARE ==
[~2016-10-01] MED LIST changes: +AMLO5TAB2 PO; +CARB25TA PO; +KEPP1TAB2 PO; +LEVO100T5 PO; +LOPR1TAB6 PO; +METF500T PO; +MYSO50TA5 PO; +OXYC-517 PO; -OXYCO5TA PO; +POTA99TA PO; +PRED10TA PO; +RAMI10CA PO
[2016-10-01 17:40] LABS: BASO % 0.4 % (0.0-1.0); EOS # 0.1 K/mm3 (0.0-0.50); EOS % 2.2 % (0.0-3.0); LARGE UNSTAINED CELL # 0.1 K/mm3 (0.0-0.4); LARGE UNSTAINED CELL % 2.2 % (0.0-4.0); LYMPH # 3.2 K/mm3 (1.5-4.5); LYMPH % 56.7 % (24.0-44.0); MEAN CORPUSCULAR HEMOGLOBIN 31.9 pg (27.0-33.0); MEAN CORPUSCULAR VOLUME 93.9 fl (80.0-96.0); MONO # 0.4 K/mm3 (0.0-0.8); NEUTROPHILS # 1.8 K/mm3 (1.8-7.7); NEUTROPHILS % 31.6 % (36.0-66.0); PLATELET COUNT, AUTOMATED 201 k/mm3 (150-450); RED CELL DISTRIBUTION WIDTH 13.3 % (11.5-14.5); WHITE BLOOD COUNT 5.6 K/mm3 (4.0-10.0)
[2016-10-01 17:57] LABS: ALBUMIN 3.9 GM/DL (3.2-5.2); ALBUMIN/GLOBULIN RATIO 1.05 (1.00-1.93); ALKALINE PHOSPHATASE 68 U/L (45-117); ALT/SGPT 18 U/L (12-78); ANION GAP 11 MEQ/L (8-16); AST/SGOT 16 U/L (15-37); BILIRUBIN,TOTAL 0.2 MG/DL (0.2-1.0); BLOOD UREA NITROGEN 11 MG/DL (7-18); CALCIUM LEVEL 8.9 MG/DL (8.8-10.2); CARBON DIOXIDE LEVEL 25 MEQ/L (21-32); CHLORIDE LEVEL 106 MEQ/L (98-107); CREATININE FOR GFR 0.83 MG/DL (0.55-1.02); GLOMERULAR FILTRATION RATE > 60.0 (>39); GLUCOSE, FASTING 103 MG/DL (83-110); SODIUM LEVEL 142 MEQ/L (136-145); TOTAL PROTEIN 7.6 GM/DL (6.4-8.2)
== END ==
LOC: M SFHCPLAZ 15:25
PROVIDERS: ATTEND Nurse Practitioner Family
DX: G25.2 Other specified forms of tremor (principal); A09 Infectious gastroenteritis and colitis, unspecified

== ENCOUNTER 2016-10-10 17:49 | Inpatient (IN) | payer MEDICARE ==
[~2016-10-10] VITALS: Ht 157.5 cm; Wt 68.2 kg
[2016-10-10] MEDS ORDERED: CITA20TA4 PO (18:15)
[2016-10-10] MEDS ORDERED: RISP0.5T3 PO (18:15)
[2016-10-10] MEDS ORDERED: LORazepam 2 MG/ML VIAL (J2060) IM STA (19:45)
[2016-10-10] MEDS ORDERED: diphenhydrAMINE INJ 50MG/ML VIAL (J1200) IM STA ×2 (19:45→22:32)
--- NOTE | 2016-10-10 20:50 | REPUSA ---
CLINICAL HISTORY: AMS. TECHNIQUE: Multiple axial CT images were obtained through the brain without IV contrast material. COMMENTS: There is normal configuration of sella turcica. There are no intra or extra-axial collections. There is no mass effect or midline shift. There is no evidence of hematoma formation. No hydrocephalus is p resent. The ventricles are symmetrical. No abnormal calcifications are present. There is diffuse age-appropriate cerebellar and cerebral atrophy with proportionally dilated ventricl es and cortical sulci. There are bilateral periventricular and subcortical white matter hypolucencies compatible with mild c hronic microvascular disease. Otherwise, no significant focal abnormalities are seen either in the posterior fossa or supratentoria l compartment. IMPRESSION: 1. Age-appropriate cerebellar and cerebral atrophy. 2. Mild chronic microvascular disease. 3. No evidence of acute intracranial pathology. Thank you for your kind referral of this patient.
[2016-10-10 21:12] LABS: ALBUMIN 3.9 GM/DL (3.2-5.2); ALBUMIN/GLOBULIN RATIO 1.11 (1.00-1.93); ALKALINE PHOSPHATASE 69 U/L (45-117); ALT/SGPT 18 U/L (12-78); ANION GAP 11 MEQ/L (8-16); AST/SGOT 17 U/L (15-37); BILIRUBIN,DIRECT < 0.1 MG/DL (0.0-0.2); BILIRUBIN,TOTAL 0.2 MG/DL (0.2-1.0); BLOOD UREA NITROGEN 12 MG/DL (7-18); CALCIUM LEVEL 8.4 MG/DL (8.8-10.2); CARBON DIOXIDE LEVEL 25 MEQ/L (21-32); CHLORIDE LEVEL 107 MEQ/L (98-107); GLOMERULAR FILTRATION RATE > 60.0 (>39); GLUCOSE, FASTING 113 MG/DL (83-110); POTASSIUM SERUM 3.5 MEQ/L (3.5-5.1); SODIUM LEVEL 143 MEQ/L (136-145); TOTAL PROTEIN 7.4 GM/DL (6.4-8.2)
[2016-10-10 21:22] LABS: MEAN CORPUSCULAR HEMOGLOBIN 31.8 pg (27.0-33.0); MEAN CORPUSCULAR HGB CONC 34.1 g/dl (32.0-36.5); MEAN CORPUSCULAR VOLUME 93.2 fl (80.0-96.0); WHITE BLOOD COUNT 7.7 K/mm3 (4.0-10.0)
[2016-10-10] MEDS ORDERED: METOCLOPRAMIDE 10 MG TAB PO ONE (23:00)
[2016-10-10] MEDS ORDERED: PRIM50TA6 PO (23:27)
[2016-10-11 00:41] LABS: METHADONE URINE NEGATIVE (NEGATIVE)
[2016-10-11 01:14] LABS: ANION GAP 11 MEQ/L (8-16); BLOOD UREA NITROGEN 10 MG/DL (7-18); CALCIUM LEVEL 8.3 MG/DL (8.8-10.2); CARBON DIOXIDE LEVEL 26 MEQ/L (21-32); CHLORIDE LEVEL 104 MEQ/L (98-107); CREATININE FOR GFR 0.71 MG/DL (0.55-1.02); GLOMERULAR FILTRATION RATE > 60.0 (>39); GLUCOSE, FASTING 101 MG/DL (83-110); POTASSIUM SERUM 3.4 MEQ/L (3.5-5.1); SODIUM LEVEL 141 MEQ/L (136-145)
[2016-10-11] MEDS ORDERED: ONDANSETRON 4MG/2ML VIAL (J2405) IV PRN (02:30)
--- NOTE | 2016-10-11 02:31 | HPEPDOC ---
General Date of Admission 10/11/2016 Primary Care Physician: Jakub Burgess MD Attending Physician: JF DOUGHERTY MD Chief Complaint The patient is a 76-year-old female admitted with a reason for visit of Psych Problem. Source: Patient, Family, RN notes reviewed, Old records Exam Limitations: Clinical conditions Timing/Duration: This afternoon Severity: Moderate Associated Symptoms: Headaches, Nausea History of Present Illness Ms. Pollard is a 76 year old female who presents to [facility]'s emergency Department with increasing tremors. She is accompanied by her and grandson. Her provides much of the history. Past medical history significant for chronic pain, arthritis, hypothyroidism, hypertension, tremors (likely partial seizures), diabetes mellitus, depression, vertebral artery stenosis, transient ischemic attack resulting in persistent right-sided weakness, degenerative disc disease, and MSSA septicemia secondary to carbuncle on her kidney. states that patient is having worsening of her tremors that started today. Patient was recently started on risperidone and started taking the medication on Saturday. notes that patient's tremors decreased significantly starting on Saturday and into Saturday at noon. However, tremors seemed to worsen Saturday afternoon. states that patient called him and her grandson and they could tell that something was not bright and that the patient was not herself. states that he manages patient's daily medications and organizes them in a pill counter. They both take her daily medicines in the morning and evening. Patient states that she did have a fall this afternoon while trying to put on her trousers. She states that she did not bump her head or lose consciousness. The family seems to indicate that they think the tremors are secondary to a multitude of reasons, including her transient ischemic attack, her spinal stenosis from degenerative disc disease, and the stress of losing her daughters (one to suicide and one to an apparent drug interaction). Patient admits to a headache, nausea, abdominal pain described as a "hurt like pain" that radiates from her back around her right flank, diarrhea, painful bowel movements, and restlessness. Other review of systems not listed above are negative. Hospitalist was consulted and patient was subsequently admitted to the hospital. Home Medications Scheduled (Risperidone) 0.5 Mg Tab 0.25 MG PO BID (Reported) TAKES HALF A TABLET BID UNTIL SATURDAY, THEN DOSE INCREASES 1 TABLET BID Citalopram Hydrobromide (Citalopram Hydrobromide) 20 Mg Tab 20 MG PO DAILY ( Reported) Levothyroxine Sodium (Synthroid) 100 Mcg Tab 100 MCG PO QAM (Reported) Metformin Hydrochloride (Metformin HCl) 500 Mg Tab 500 MG PO BID (Reported) Primidone (Primidone) 50 Mg Tab 100 MG PO BID (Reported) Ramipril (Ramipril) 10 Mg Cap 10 MG PO DAILY (Reported) Allergies Coded Allergies: Sulfa Drugs (Verified Allergy, Intermediate, HIVES, 11/10/12) Sulfa Drugs Cross Reactors (Verified Allergy, Intermediate, HIVES, 11/10/12) Past Medical History Medical History 1. Chronic pain 2. Arthritis 3. Degenerative disc disease 4. Hypothyroidism 5. Hypertension 6. 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 Diabetes mellitus 8. Depression 9. History of MSSA septicemia secondary to carbuncle and kidney 10. Vertebral artery stenosis 11. Transient ischemic attack with persistent right-sided weakness 12. Recurrent nephrolithiasis 13. Spinal stenosis Surgical History 1. Left wrist fracture 2. Appendectomy 3. Urinary cystoscopy 4. Tibia fracture 5. Exploratory laparotomy 6. Left breast lumpectomy 7. Right carpal tunnel release 8. Bilateral cataracts Family History Significant Family History: Cancer (father, esophageal), Heart disease (mother , myocardial infarction) Social History * Smoker: Denies Alcohol: Denies Drugs: denies Recent Travel/Sick Contacts: Denies: Recent sick contacts, Recent travel Review of Symptoms Constitutional: Denies: Chills, Fever, Night Sweats Eyes: Denies: Vision change ENT: Reports: Head Aches, Denies: Sore Throat Skin: Denies: Lesions, Rash Pulmonary: Denies: Cough, Dyspnea Cardiovascular: Denies: Chest Pain, Edema Gastrointestinal: Reports: Abdominal Pain, Diarrhea, Nausea, Denies: Constipation, Hematochezia, Melena, Vomiting Genitourinary: Reports: Other Symptoms (urinary urgency), Denies: Hematuria Musculoskeletal: Reports: Back Pain Physical Examination General Exam: Positive: Cooperative Eye Exam: Positive: Conjunctiva & lids normal, Other Eye Symptoms (ocular hyperreflexia) ENT Exam: Positive: Atraumatic, Tongue Midline, Negative: Mucous membr. moist/pink Neck Exam: Positive: Supple, Negative: JVD, Lymphadenopathy, thyromegaly Chest Exam: Positive: Clear to auscultation, Normal air movement Heart Exam: Positive: Normal S1, Normal S2, Tachycardic Telemetry: Positive: Tachycardia Abdomen Exam: Positive: Normal bowel sounds, Soft, Tenderness (right lower quadrant) Extremity Exam: Positive: Normal pulses, Other (random, involuntary tremulous motions of upper and lower extremities), Negative: Clubbing, Cyanosis, Edema, Swelling Skin Exam: Positive: Nl turgor and temperature Neuro Exam: Negative: Normal Speech, Normal Tone Vital Signs T 98.4 HR 101 RR 22 BP 171/79 O2 94% on room air Height (in): 62 Weight (kg): 70.307 BMI (kg): 28.3 Laboratory Data Labs 24H Laboratory Tests 2 10/10/16 20:32: Acetaminophen Level < 2.0L, Aspartate Amino Transf (AST/SGOT) 17, Alanine Aminotransferase (ALT/SGPT) 18, Alkaline Phosphatase 69, Total Bilirubin 0.2, Direct Bilirubin < 0.1, Albumin 3.9, Albumin/Globulin Ratio 1.11, Anion Gap 11, Calcium Level 8.4L, Ethyl Alcohol Level < 0.003, Glomerular Filtration Rate > 60.0, Salicylates Level < 1.7L, Thyroid Stimulating Hormone (TSH) 0.691, Total Protein 7.4 10/10/16 23:49: Urine Amphetamines Screen NEGATIVE, Urine Benzodiazepines Screen NEGATIVE, Urine Opiates Screen NEGATIVE, Urine Barbiturates Screen POSITIVEH, Urine Cannabinoids Screen NEGATIVE, Urine Cocaine Metabolite Screen NEGATIVE, Urine Methadone Screen NEGATIVE, Urine Phencyclidine Screen NEGATIVE CBC/BMP Laboratory Tests 10/10/16 20:32 Red Blood Count 3.51 L, Mean Corpuscular Volume 93.2, Mean Corpuscular Hemoglobin 31.8, Mean Corpuscular Hemoglobin Concent 34.1, Red Cell Distribution Width 13.0 RAD Interpretation STUDY: head CT: Age-related atrophy and microvascular disease Rad Actions: Report Reviewed Assessment/Plan 76-year-old female who initially presents with worsening involuntary tremors likely secondary to medication interaction, adverse medication reaction , or serotonin syndrome Problems (1) Abnormal involuntary movement Status: Acute Problem Text: Patient is tachycardic with heart rate of 101, tachypnea with respiratory rate of 22, and hypertensive with a blood pressure 171/79 Patient is hyperreflexive with ocular hyperreflexia Patient was recently started on risperidone and citalopram - Question adverse drug reaction to risperidone - Question possible serotonin syndrome Other possibilities include underlying Parkinson's disease - Consult neurology Prescribed Ativan 1 mg every 6 hours as needed for agitation Prescribe Benadryl Continue patient on home medication - Primidone (2) Diabetes mellitus Status: Chronic Problem Text: Patient's blood glucose at presentation was 113 Will manage while inpatient with sliding scale and fingersticks before meals and at night (3) Hypothyroidism Status: Chronic Problem Text: Continue patient on home medication - Levothyroxine (4) Hypertension Status: Chronic Problem Text: Patient's blood pressure was 171/79 Continue patient on her medication - Ramipril Plan / VTE VTE Prophylaxis Ordered?: Yes (Lovenox 40 mg subcutaneous daily) Plan Plan Discontinue risperidone and citalopram Prescribe Benadryl Prescribe Ativan 1 mg every 6 when necessary for agitation Monitor vital signs and adjust Ativan dosage if tachycardia, tachypnea, hypertension arise Consult neurology Question about whether or not there is underlying Parkinson's disease I have both independently examined this patient as well as reviewed the record. I have discussed in detail with the resident the findings and plan of treatment as documented in the resident's note and discussed with the patient. Disposition Admit to PCU Anticipated hospitalization: 2 nights Diet: Continue Current Activity: Continue Current Diagnostics: Check Labs, Repeat Labs in AM Anticipated Discharge: Home CRISTOFER CARCAMO Oct 11, 2016 02:01 JF DOUGHERTY MD Oct 27, 2016 13:26
[2016-10-11 07:35] VITALS: BP 121/56
[2016-10-11] MEDS: PRIMIDONE 50 MG TAB PO SCH ×2 (09:00→20:54)
[2016-10-11 11:45] VITALS: BP 178/80
[2016-10-11] MEDS: RAMIPRIL 5 MG CAP PO SCH (12:38)
[2016-10-11] MEDS: LEVOTHYROXINE 0.1 MG TAB (100 MCG) PO SCH (12:38)
[2016-10-11] MEDS: ENOXAPARIN 40 MG/0.4 ML SYRINGE (J1650) SC SCH (12:38)
[2016-10-11] MEDS: ACETAMINOPHEN 500 MG TAB PO PRN (12:39)
[2016-10-11] MEDS: LIDOCAINE 5% (LIDODERM) PATCH TD SCH (13:19)
--- NOTE | 2016-10-11 14:29 | IPNPDOC ---
Subjective Date Seen The patient was seen on 10/11/16. Subjective Chief Complaint/HPI The patient is a 76-year-old female admitted with a reason for visit of Serotonin Syndrome. Events since last encounter Patient states she feels better today than upon presentation to ED yesterday. She denies falling. She states that she has a baseline tremor that was being treated with risperidone - this worked very well for 4 days, and then yesterday her tremor became suddenly much worse. She states tremor today is much worse than baseline. She follows with Dr. Dyson for this. She is also c/o worsening of her chronic lower back pain. General: Denies: Chills Constitutional: Denies: Fever, Malaise ENT: Denies: Head Aches Skin: Denies: Rash Pulmonary: Denies: Cough, Dyspnea Cardiovascular: Denies: Chest Pain, Palpitations Gastrointestinal: Denies: Abdominal Pain, Nausea, Vomiting Genitourinary: Denies: Dysuria Musculoskeletal: Reports: Back Pain (chronic low back pain) Neurological: Reports: Incoordination, Other Symptoms (full body tremors), Denies: Change in speech, Confusion, Numbness, Weakness Psych: Reports: Mood Normal Objective Physical Examination General Exam: Positive: Cooperative Eye Exam: Positive: Conjunctiva & lids normal ENT Exam: Positive: Atraumatic, Tongue Midline, Negative: Mucous membr. moist/pink Neck Exam: Positive: Supple, Negative: JVD, thyromegaly Chest Exam: Positive: Clear to auscultation, Normal air movement Heart Exam: Positive: Normal S1, Normal S2, Rate Normal, Regular Rhythm, Negative: Murmurs Telemetry: Positive: Tachycardia Abdomen Exam: Positive: Normal bowel sounds, Soft, Negative: Tenderness Extremity Exam: Positive: Normal pulses, Other (random, involuntary tremulous motions of upper and lower extremities at rest; occasional head bobbing motions) , Negative: Clubbing, Cyanosis, Edema, Swelling Skin Exam: Positive: Nl turgor and temperature Neuro Exam: Negative: Normal Speech, Normal Tone Assessment /Plan Problems (1) Abnormal involuntary movement Status: Acute Problem Text: Patient was recently started on risperidone and citalopram - Question adverse drug reaction to risperidone - Question possible serotonin syndrome Other possibilities include underlying Parkinson's disease - Neurology is consulted and will see patient today Prescribed Ativan 1 mg every 6 hours as needed for agitation; has not needed this since last night Prescribe Benadryl Continue patient on home medication - Primidone (2) Diabetes mellitus Status: Chronic Problem Text: Continue sliding scale insulin and chemsticks QACHS (3) Hypothyroidism Status: Chronic Problem Text: Continue patient on home medication - Levothyroxine (4) Hypertension Status: Chronic Problem Text: Patient's blood pressure better controlled this afternoon. Continue patient on her medication - Ramipril (5) Chronic low back pain Status: Chronic Problem Text: Made worse by tremor and hospital bed; acetaminophen added and lidoderm 5% patch ordered. Plan/VTE VTE Prophylaxis Ordered?: Yes (Lovenox 40 mg subcutaneous daily) Plan Diet: Continue Current Activity: Continue Current Diagnostics: Check Labs, Repeat Labs in AM Anticipated Discharge: Home VS, I&O, 24H, [facility] Vital Signs/I&O Vital Signs Date Time Temp Pulse Resp B/P Pulse Ox O2 Delivery O2 Flow Rate FiO2 10/11/16 12:38 148/78 10/11/16 11:45 97.6 109 20 92 Room Air Laboratory Data 24H LABS Laboratory Tests 2 10/10/16 20:32: Acetaminophen Level < 2.0L, Aspartate Amino Transf (AST/SGOT) 17, Alanine Aminotransferase (ALT/SGPT) 18, Alkaline Phosphatase 69, Total Bilirubin 0.2, Direct Bilirubin < 0.1, Albumin 3.9, Albumin/Globulin Ratio 1.11, Anion Gap 11, Calcium Level 8.4L, Ethyl Alcohol Level < 0.003, Glomerular Filtration Rate > 60.0, Salicylates Level < 1.7L, Thyroid Stimulating Hormone (TSH) 0.691, Total Protein 7.4 10/10/16 23:49: Urine Amphetamines Screen NEGATIVE, Urine Benzodiazepines Screen NEGATIVE, Urine Opiates Screen NEGATIVE, Urine Barbiturates Screen POSITIVEH, Urine Cannabinoids Screen NEGATIVE, Urine Cocaine Metabolite Screen NEGATIVE, Urine Methadone Screen NEGATIVE, Urine Phencyclidine Screen NEGATIVE CBC/BMP Laboratory Tests 10/10/16 20:32 Red Blood Count 3.51 L, Mean Corpuscular Volume 93.2, Mean Corpuscular Hemoglobin 31.8, Mean Corpuscular Hemoglobin Concent 34.1, Red Cell Distribution Width 13.0 TAMIKA TRAN MD Oct 11, 2016 14:29
[2016-10-11 16:00] VITALS: BP 137/68
[2016-10-11] MEDS ORDERED: QUEtiapine FUMARATE 25 MG TAB PO ONE (18:45)
[2016-10-11] MEDS ORDERED: PERCOCET 5MG/325MG TAB PO ONE (20:00)
[2016-10-11 20:11] VITALS: BP 128/80
[2016-10-11] MEDS: **NOTE PATIENT COMMENT** MISC XX SCH (21:00)
[2016-10-11 23:41] VITALS: BP 122/64
[2016-10-12] MEDS ORDERED: SLF 3 ML SYR IV PRN (00:30)
[2016-10-12] MEDS ORDERED: GLUCAGON FOR INJ 1 MG VIAL (J1610) SC PRN (03:00)
[2016-10-12] MEDS ORDERED: DEXTROSE 50% 50 ML SYRINGE IV PRN (03:00)
[2016-10-12] MEDS ORDERED: GLUCOSE 4 GM CHEW TABLET PO PRN (03:00)
[2016-10-12 04:47] VITALS: BP 142/70
[2016-10-12] MEDS: SLF 3 ML SYR IV SCH ×3 (05:03→22:26)
[2016-10-12] MEDS: LEVOTHYROXINE 0.1 MG TAB (100 MCG) PO SCH (05:03)
[2016-10-12 06:17] LABS: MEAN CORPUSCULAR HEMOGLOBIN 32.3 pg (27.0-33.0); MEAN CORPUSCULAR HGB CONC 34.5 g/dl (32.0-36.5); MEAN CORPUSCULAR VOLUME 93.7 fl (80.0-96.0); RED CELL DISTRIBUTION WIDTH 13.3 % (11.5-14.5); WHITE BLOOD COUNT 4.6 K/mm3 (4.0-10.0)
[2016-10-12 06:27] LABS: ANION GAP 10 MEQ/L (8-16); BLOOD UREA NITROGEN 11 MG/DL (7-18); CALCIUM LEVEL 8.1 MG/DL (8.8-10.2); CARBON DIOXIDE LEVEL 27 MEQ/L (21-32); CHLORIDE LEVEL 104 MEQ/L (98-107); CREATININE FOR GFR 0.74 MG/DL (0.55-1.02); GLOMERULAR FILTRATION RATE > 60.0 (>39); GLUCOSE, FASTING 115 MG/DL (83-110); POTASSIUM SERUM 3.2 MEQ/L (3.5-5.1); SODIUM LEVEL 141 MEQ/L (136-145)
[2016-10-12 07:55] VITALS: BP 136/78
--- NOTE | 2016-10-12 08:50 | IPNPDOC ---
Subjective Date Seen The patient was seen on 10/12/16. Subjective Chief Complaint/HPI Pt denies any improvement in her tremor overnight. She is quite discouraged. General: Denies: Fatigue Constitutional: Denies: Chills, Fever ENT: Denies: Head Aches Pulmonary: Denies: Cough, Dyspnea Cardiovascular: Denies: Chest Pain, Palpitations Gastrointestinal: Denies: Diarrhea, Nausea, Vomiting Neurological: Reports: Other Symptoms (tremor BUE), Weakness Psych: Reports: Depression Objective Physical Examination General Exam: Positive: Alert, Cooperative, Mild Distress Neck Exam: Positive: Supple Chest Exam: Positive: Clear to auscultation, Normal air movement Heart Exam: Positive: Normal S1, Normal S2, Rate Normal, Regular Rhythm, Negative: Murmurs Telemetry: Positive: Sinus Abdomen Exam: Positive: Normal bowel sounds, Soft, Negative: Tenderness Extremity Exam: Positive: Normal pulses, Other (random, involuntary tremulous motions of upper and lower extremities at rest; occasional head bobbing motions) , Negative: Clubbing, Cyanosis, Edema, Swelling Skin Exam: Positive: Nl turgor and temperature Neuro Exam: Negative: Normal Speech, Normal Tone Psych Exam: Positive: Oriented x 3, Other (depressed), Negative: Mood NL Assessment /Plan Problems (1) Abnormal involuntary movement Status: Acute Problem Text: 10/12 Attending Note: Tremor now significantly improved; no tremor in legs and tremor in arms and head improved somewhat. 10/12 - Neuro following, started on Seroquel 12.5 last night per Neuro, symptoms really are unchanged per pt 10/11 Patient was recently started on risperidone and citalopram - Question adverse drug reaction to risperidone - Question possible serotonin syndrome Other possibilities include underlying Parkinson's disease - Neurology is consulted and will see patient today Prescribed Ativan 1 mg every 6 hours as needed for agitation; has not needed this since last night Prescribe Benadryl Continue patient on home medication - Primidone (2) Diabetes mellitus Status: Chronic Problem Text: Continue sliding scale insulin and FSBS QACHS (3) Hypothyroidism Status: Chronic Problem Text: Continue patient on home medication - Levothyroxine (4) Hypertension Status: Chronic Problem Text: Patient's blood pressure better controlled this afternoon. Continue ramipril. (5) Chronic low back pain Status: Chronic Problem Text: Made worse by tremor and hospital bed; currently receiving oxycodone/acetaminophen Q6H PRN and lidoderm 5% patch. Plan/VTE VTE Prophylaxis Ordered?: Yes (Lovenox 40 mg subcutaneous daily) Plan/Urinary Catheter Reason for insertion/continuin: Other-document below Plan Diet: Continue Current Activity: Continue Current Diagnostics: Check Labs, Repeat Labs in AM Anticipated Discharge: Home Family Medicine Attending Note: Patient seen and examined this afternoon; I d/w RICHARD Jamison and I agree with her note above. Patient states tremor is much better this afternoon - leg tremor has resolved; head and arm tremors have improved but are still present. This could be related to seroquel or to risperidone washing out of her system. Continue seroquel per neurology recommendations. IVF started this morning due to concern that patient could develop rhabdo with significant tremors; CK was normal - will recheck in the morning. K+ was a bit low this morning - she is receiving KCl in her IVF and I will also add PO potassium. (KES) VS, I&O, 24H, [facility] Vital Signs/I&O Vital Signs Date Time Temp Pulse Resp B/P Pulse Ox O2 Delivery O2 Flow Rate FiO2 10/12/16 07:59 Room Air 10/12/16 04:47 97.0 88 18 142/70 92 I&O- Last 24 Hours up to 6 AM 10/12/16 05:59 Intake Total 600 ml Output Total 1975 ml Balance -1375 ml Laboratory Data 24H LABS Laboratory Tests 2 10/12/16 04:50: Bedside Glucose (Misc Panel) 123H 10/12/16 05:40: Anion Gap 10, Blood Urea Nitrogen 11, Creatinine 0.74, Sodium Level 141, Potassium Level 3.2L, Chloride Level 104, Carbon Dioxide Level 27, Calcium Level 8.1L, Glomerular Filtration Rate > 60.0 CBC/BMP Laboratory Tests 10/12/16 05:40 Calcium Level 8.1 L 10/12/16 05:41 Red Blood Count 3.41 L, Mean Corpuscular Volume 93.7, Mean Corpuscular Hemoglobin 32.3, Mean Corpuscular Hemoglobin Concent 34.5, Red Cell Distribution Width 13.3 ARIELLA BURRIS PA-C Oct 12, 2016 08:49 TAMIKA TRAN MD Oct 12, 2016 15:00
[2016-10-12] MEDS ORDERED: QUEtiapine FUMARATE 12.5 MG HALF-TAB PO SCH (09:00)
[2016-10-12] MEDS: HumaLOG INSULIN (NovoLOG) PER UNIT SC SCH ×4 (09:21→21:00)
[2016-10-12] MEDS: PRIMIDONE 50 MG TAB PO SCH ×2 (09:21→22:25)
[2016-10-12] MEDS: RAMIPRIL 5 MG CAP PO SCH (09:21)
[2016-10-12] MEDS: ENOXAPARIN 40 MG/0.4 ML SYRINGE (J1650) SC SCH (09:22)
[2016-10-12] MEDS: LIDOCAINE 5% (LIDODERM) PATCH TD SCH (09:22)
[2016-10-12] MEDS: KCL 20MEQ in NS 1000ML 1,000 ML IV SCH (11:45)
[2016-10-12] MEDS: PERCOCET 5MG/325MG TAB PO PRN ×2 (12:38→18:40)
[2016-10-12 14:00] VITALS: BP 110/58
[2016-10-12 22:00] VITALS: BP 128/77
[2016-10-12] MEDS: POTASSIUM CHLORIDE 10 MEQ SR TABLET PO SCH (22:25)
[2016-10-12] MEDS: QUEtiapine FUMARATE 25 MG TAB PO SCH (22:25)
[2016-10-12] MEDS: **NOTE PATIENT COMMENT** MISC XX SCH (22:26)
[2016-10-13 00:06] LABS: CK TOTAL 119 U/L (24-173)
[2016-10-13] MEDS: KCL 20MEQ in NS 1000ML 1,000 ML IV SCH ×2 (01:23→14:10)
[2016-10-13] MEDS: PERCOCET 5MG/325MG TAB PO PRN ×3 (03:22→17:18)
[2016-10-13 05:55] LABS: MEAN CORPUSCULAR HEMOGLOBIN 32.3 pg (27.0-33.0); MEAN CORPUSCULAR HGB CONC 33.9 g/dl (32.0-36.5); MEAN CORPUSCULAR VOLUME 95.3 fl (80.0-96.0); RED CELL DISTRIBUTION WIDTH 12.9 % (11.5-14.5); WHITE BLOOD COUNT 4.3 K/mm3 (4.0-10.0)
[2016-10-13 06:00] VITALS: BP 152/67
[2016-10-13] MEDS: SLF 3 ML SYR IV SCH ×3 (06:05→21:05)
[2016-10-13] MEDS: LEVOTHYROXINE 0.1 MG TAB (100 MCG) PO SCH (06:05)
[2016-10-13 06:12] LABS: ANION GAP 10 MEQ/L (8-16); BLOOD UREA NITROGEN 11 MG/DL (7-18); CALCIUM LEVEL 7.6 MG/DL (8.8-10.2); CARBON DIOXIDE LEVEL 23 MEQ/L (21-32); CHLORIDE LEVEL 111 MEQ/L (98-107); CREATININE FOR GFR 0.65 MG/DL (0.55-1.02); GLOMERULAR FILTRATION RATE > 60.0 (>39); GLUCOSE, FASTING 107 MG/DL (83-110); POTASSIUM SERUM 4.3 MEQ/L (3.5-5.1); SODIUM LEVEL 144 MEQ/L (136-145)
[2016-10-13] MEDS: LIDOCAINE 5% (LIDODERM) PATCH TD SCH (10:05)
[2016-10-13] MEDS: ENOXAPARIN 40 MG/0.4 ML SYRINGE (J1650) SC SCH (10:06)
[2016-10-13] MEDS: PRIMIDONE 50 MG TAB PO SCH (10:06)
[2016-10-13] MEDS: HumaLOG INSULIN (NovoLOG) PER UNIT SC SCH ×4 (10:06→21:00)
[2016-10-13] MEDS: QUEtiapine FUMARATE 25 MG TAB PO SCH ×2 (10:07→21:04)
[2016-10-13] MEDS: POTASSIUM CHLORIDE 10 MEQ SR TABLET PO SCH ×2 (10:07→21:04)
[2016-10-13] MEDS: RAMIPRIL 5 MG CAP PO SCH (10:07)
--- NOTE | 2016-10-13 11:30 | IPNPDOC ---
Subjective Date Seen The patient was seen on 10/13/16. Subjective Chief Complaint/HPI The patient is a 76-year-old female admitted with a reason for visit of Seretonin Syndrome. General: Reports: Other Symptoms (believes her tremor is a bit better than yesterday) Objective Physical Examination General Exam: Positive: Alert, Cooperative, No Acute Distress Neck Exam: Positive: Supple Chest Exam: Positive: Clear to auscultation, Normal air movement Heart Exam: Positive: Normal S1, Normal S2, Rate Normal, Regular Rhythm, Negative: Murmurs Telemetry: Positive: Sinus Extremity Exam: Positive: Normal pulses, Other (random, involuntary tremulous motions of upper and lower extremities at rest; occasional head bobbing motions) , Negative: Clubbing, Cyanosis, Edema, Swelling Skin Exam: Positive: Nl turgor and temperature Neuro Exam: Positive: Other (large motor tremor of Right upper extremity and also left, but left is much less notable than right. strength seems to be normal.), Sensation Intact, Negative: Normal Speech, Normal Tone Psych Exam: Positive: Oriented x 3, Other (does not vocalize low mood today.), Negative: Mood NL Assessment /Plan Problems (1) Abnormal involuntary movement Status: Acute Problem Text: 10/12 Attending Note: Tremor now significantly improved; no tremor in legs and tremor in arms and head improved somewhat. 10/12 - Neuro following, started on Seroquel 12.5 last night per Neuro, symptoms really are unchanged per pt 10/11 Patient was recently started on risperidone and citalopram - Question adverse drug reaction to risperidone - Question possible serotonin syndrome Other possibilities include underlying Parkinson's disease - Neurology is consulted and will see patient today Prescribed Ativan 1 mg every 6 hours as needed for agitation; has not needed this since last night Prescribe Benadryl Continue patient on home medication - Primidone (2) Diabetes mellitus Status: Chronic Problem Text: Continue sliding scale insulin and FSBS QACHS (3) Hypothyroidism Status: Chronic Problem Text: Continue patient on home medication - Levothyroxine (4) Hypertension Status: Chronic Problem Text: Patient's blood pressure better controlled this afternoon. Continue ramipril. (5) Chronic low back pain Status: Chronic Problem Text: Made worse by tremor and hospital bed; currently receiving oxycodone/acetaminophen Q6H PRN and lidoderm 5% patch. Plan/VTE VTE Prophylaxis Ordered?: Yes (Josuéx 40 mg subcutaneous daily) Plan/Urinary Catheter Reason for insertion/continuin: Other-document below Plan Diet: Continue Current Activity: Continue Current Diagnostics: Check Labs, Repeat Labs in AM Anticipated Discharge: Home VS, I&O, 24H, [facility] Vital Signs/I&O Vital Signs Date Time Temp Pulse Resp B/P Pulse Ox O2 Delivery O2 Flow Rate FiO2 10/13/16 10:52 Room Air 10/13/16 10:38 18 10/13/16 10:07 152/67 10/13/16 06:00 97.4 80 92 I&O- Last 24 Hours up to 6 AM 10/13/16 06:00 Intake Total 600 ml Output Total 900 ml Balance -300 ml Laboratory Data 24H LABS Laboratory Tests 2 10/12/16 11:44: Total Creatine Kinase 92 10/12/16 12:30: Bedside Glucose (Misc Panel) 122H 10/12/16 16:50: Bedside Glucose (Misc Panel) 149H 10/12/16 19:28: Bedside Glucose (Misc Panel) 140H 10/13/16 05:36: Anion Gap 10, Blood Urea Nitrogen 11, Creatinine 0.65, Sodium Level 144, Potassium Level 4.3#, Chloride Level 111H, Carbon Dioxide Level 23, Calcium Level 7.6L, Glomerular Filtration Rate > 60.0 CBC/BMP Laboratory Tests 10/13/16 05:36 Calcium Level 7.6 L, Red Blood Count 3.14 L, Mean Corpuscular Volume 95.3, Mean Corpuscular Hemoglobin 32.3, Mean Corpuscular Hemoglobin Concent 33.9, Red Cell Distribution Width 12.9 Bruno Hollingsworth MD Oct 13, 2016 11:30
[2016-10-13 14:00] VITALS: BP 136/77
[2016-10-13] MEDS: **NOTE PATIENT COMMENT** MISC XX SCH (21:00)
[2016-10-13] MEDS: PRIMIDONE 125MG PER 1/2 TABLET PO SCH (21:04)
[2016-10-13 22:00] VITALS: BP 165/74
[2016-10-14] MEDS: KCL 20MEQ in NS 1000ML 1,000 ML IV SCH (03:30)
[2016-10-14] MEDS: LEVOTHYROXINE 0.1 MG TAB (100 MCG) PO SCH (05:15)
[2016-10-14] MEDS: SLF 3 ML SYR IV SCH ×3 (05:16→20:13)
[2016-10-14 06:00] VITALS: BP 153/78
[2016-10-14 06:01] LABS: ANION GAP 7 MEQ/L (8-16); BLOOD UREA NITROGEN 7 MG/DL (7-18); CALCIUM LEVEL 7.8 MG/DL (8.8-10.2); CARBON DIOXIDE LEVEL 28 MEQ/L (21-32); CHLORIDE LEVEL 109 MEQ/L (98-107); CREATININE FOR GFR 0.65 MG/DL (0.55-1.02); GLOMERULAR FILTRATION RATE > 60.0 (>39); GLUCOSE, FASTING 116 MG/DL (83-110); POTASSIUM SERUM 4.1 MEQ/L (3.5-5.1); SODIUM LEVEL 144 MEQ/L (136-145)
[2016-10-14 06:06] LABS: MEAN CORPUSCULAR HEMOGLOBIN 32.5 pg (27.0-33.0); MEAN CORPUSCULAR HGB CONC 33.7 g/dl (32.0-36.5); MEAN CORPUSCULAR VOLUME 96.3 fl (80.0-96.0); RED CELL DISTRIBUTION WIDTH 13.2 % (11.5-14.5)
[2016-10-14] MEDS: POTASSIUM CHLORIDE 10 MEQ SR TABLET PO SCH ×2 (07:55→20:13)
[2016-10-14] MEDS: HumaLOG INSULIN (NovoLOG) PER UNIT SC SCH ×4 (07:55→20:13)
[2016-10-14] MEDS: ENOXAPARIN 40 MG/0.4 ML SYRINGE (J1650) SC SCH (07:55)
[2016-10-14] MEDS: LIDOCAINE 5% (LIDODERM) PATCH TD SCH (07:55)
[2016-10-14] MEDS: RAMIPRIL 5 MG CAP PO SCH (07:56)
[2016-10-14] MEDS: PERCOCET 5MG/325MG TAB PO PRN ×2 (07:56→15:17)
[2016-10-14] MEDS: QUEtiapine FUMARATE 25 MG TAB PO SCH ×2 (07:56→20:13)
[2016-10-14] MEDS: PRIMIDONE 125MG PER 1/2 TABLET PO SCH ×2 (07:56→20:12)
[2016-10-14 14:00] VITALS: BP 148/86
--- NOTE | 2016-10-14 14:07 | IPNPDOC ---
Subjective Date Seen The patient was seen on 10/14/16. Subjective Chief Complaint/HPI Pt with resolution of her tremors as of 3 AM today. She is feeling well. Pulmonary: Denies: Dyspnea Cardiovascular: Denies: Chest Pain, Palpitations Psych: Reports: Mood Normal Objective Physical Examination General Exam: Positive: Alert, Cooperative, No Acute Distress Neck Exam: Positive: Supple Chest Exam: Positive: Clear to auscultation, Normal air movement Heart Exam: Positive: Normal S1, Normal S2, Rate Normal, Regular Rhythm, Negative: Murmurs Telemetry: Positive: Sinus Extremity Exam: Positive: Clubbing, Cyanosis, Normal pulses, Negative: Edema Skin Exam: Positive: Nl turgor and temperature Neuro Exam: Positive: Sensation Intact, Negative: Normal Speech Psych Exam: Positive: Oriented x 3, Other (does not vocalize low mood today.), Negative: Mood NL Assessment /Plan Problems (1) Abnormal involuntary movement Status: Acute Problem Text: 10/14 - Tremor resolved, Per Neuro Seroquel 25 mg po BID, anticipate d/c in AM. 10/12 Attending Note: Tremor now significantly improved; no tremor in legs and tremor in arms and head improved somewhat. 10/12 - Neuro following, started on Seroquel 12.5 last night per Neuro, symptoms really are unchanged per pt 10/11 Patient was recently started on risperidone and citalopram - Question adverse drug reaction to risperidone - Question possible serotonin syndrome Other possibilities include underlying Parkinson's disease - Neurology is consulted and will see patient today Prescribed Ativan 1 mg every 6 hours as needed for agitation; has not needed this since last night Prescribe Benadryl Continue patient on home medication - Primidone (2) Diabetes mellitus Status: Chronic Problem Text: Continue sliding scale insulin and FSBS QACHS (3) Hypothyroidism Status: Chronic Problem Text: Continue patient on home medication - Levothyroxine (4) Hypertension Status: Chronic Problem Text: Patient's blood pressure better controlled this afternoon. Continue ramipril. (5) Chronic low back pain Status: Chronic Problem Text: Made worse by tremor and hospital bed; currently receiving oxycodone/acetaminophen Q6H PRN and lidoderm 5% patch. Plan/VTE VTE Prophylaxis Ordered?: Yes (Lovenox 40 mg subcutaneous daily) Plan/Urinary Catheter Reason for insertion/continuin: Other-document below Plan Diet: Continue Current Activity: Continue Current Diagnostics: Check Labs, Repeat Labs in AM Anticipated Discharge: Home VS, I&O, 24H, [facility] Vital Signs/I&O Vital Signs Date Time Temp Pulse Resp B/P Pulse Ox O2 Delivery O2 Flow Rate FiO2 10/14/16 08:45 18 10/14/16 07:56 153/78 10/14/16 07:45 Room Air 10/14/16 06:00 97.0 80 96 I&O- Last 24 Hours up to 6 AM 10/14/16 06:00 Intake Total 1080 ml Output Total 0 ml Balance 1080 ml Laboratory Data 24H LABS Laboratory Tests 2 10/13/16 16:31: Bedside Glucose (Misc Panel) 179H 10/13/16 20:24: Bedside Glucose (Misc Panel) 138H 10/14/16 05:28: Anion Gap 7L, Blood Urea Nitrogen 7, Creatinine 0.65, Sodium Level 144, Potassium Level 4.1, Chloride Level 109H, Carbon Dioxide Level 28, Calcium Level 7.8L, Glomerular Filtration Rate > 60.0 10/14/16 11:28: Bedside Glucose (Misc Panel) 128H CBC/BMP Laboratory Tests 10/14/16 05:28 Calcium Level 7.8 L, Red Blood Count 3.33 L, Mean Corpuscular Volume 96.3 H, Mean Corpuscular Hemoglobin 32.5, Mean Corpuscular Hemoglobin Concent 33.7, Red Cell Distribution Width 13.2 Attending Note Attending Note Patient doing well. Dyskinesia has stopped. Will plan D/C in am if symptoms remain controlled overnight. ARIELLA BURRIS PA-C Oct 14, 2016 14:07 Bruno Hollingsworth MD Oct 14, 2016 14:08
[2016-10-14] MEDS: **NOTE PATIENT COMMENT** MISC XX SCH (20:13)
[2016-10-14 22:00] VITALS: BP 179/84
[2016-10-15] MEDS: LEVOTHYROXINE 0.1 MG TAB (100 MCG) PO SCH (05:10)
[2016-10-15] MEDS: SLF 3 ML SYR IV SCH ×3 (05:11→20:13)
[2016-10-15 06:00] VITALS: BP 161/75
[2016-10-15 07:18] LABS: MEAN CORPUSCULAR HEMOGLOBIN 32.7 pg (27.0-33.0); MEAN CORPUSCULAR HGB CONC 34.2 g/dl (32.0-36.5); MEAN CORPUSCULAR VOLUME 95.7 fl (80.0-96.0); RED CELL DISTRIBUTION WIDTH 13.2 % (11.5-14.5); WHITE BLOOD COUNT 5.6 K/mm3 (4.0-10.0)
[2016-10-15 07:29] LABS: ANION GAP 8 MEQ/L (8-16); BLOOD UREA NITROGEN 9 MG/DL (7-18); CALCIUM LEVEL 8.2 MG/DL (8.8-10.2); CARBON DIOXIDE LEVEL 27 MEQ/L (21-32); CHLORIDE LEVEL 105 MEQ/L (98-107); GLOMERULAR FILTRATION RATE > 60.0 (>39); GLUCOSE, FASTING 111 MG/DL (83-110); POTASSIUM SERUM 4.1 MEQ/L (3.5-5.1); SODIUM LEVEL 140 MEQ/L (136-145)
[2016-10-15] MEDS: HumaLOG INSULIN (NovoLOG) PER UNIT SC SCH ×4 (07:55→20:13)
[2016-10-15] MEDS: PRIMIDONE 125MG PER 1/2 TABLET PO SCH ×2 (07:59→20:12)
[2016-10-15] MEDS: RAMIPRIL 5 MG CAP PO SCH (07:59)
[2016-10-15] MEDS: ENOXAPARIN 40 MG/0.4 ML SYRINGE (J1650) SC SCH (08:00)
[2016-10-15] MEDS: QUEtiapine FUMARATE 25 MG TAB PO SCH (08:00)
[2016-10-15] MEDS: LIDOCAINE 5% (LIDODERM) PATCH TD SCH (08:01)
[2016-10-15] MEDS: POTASSIUM CHLORIDE 10 MEQ SR TABLET PO SCH ×2 (08:01→20:13)
[2016-10-15] MEDS: PERCOCET 5MG/325MG TAB PO PRN ×2 (08:06→16:53)
[2016-10-15] MEDS: LORazepam 1 MG TAB PO PRN (12:00)
--- NOTE | 2016-10-15 12:06 | IPNPDOC ---
Subjective Date Seen The patient was seen on 10/15/16. Subjective Chief Complaint/HPI The patient is a 76-year-old female admitted with a reason for visit of Seretonin Syndrome. Events since last encounter started with involuntary movements within the last 45 minutes. unable to recall precipitating factor. Prior to this, was tremor free for approximately 24 hours. Constitutional: Denies: Chills, Fever, Night Sweats ENT: Denies: Dysphagia, Ear Pain, Head Aches Pulmonary: Denies: Cough, Dyspnea Cardiovascular: Denies: Chest Pain, Lt Headedness, Orthopnea, Palpitations, Paroxysmal Noc. Dyspnea Gastrointestinal: Denies: Abdominal Pain, Constipation, Diarrhea, Nausea, Vomiting Neurological: Reports: Other Symptoms (tremor, involuntary movements of limbs: upper and lower extremties) Psych: Reports: Mood Normal, Denies: Depression, Memory Issues Objective Physical Examination General Exam: Positive: Alert, Cooperative, No Acute Distress Neck Exam: Positive: Supple Chest Exam: Positive: Clear to auscultation, Normal air movement Heart Exam: Positive: Normal S1, Normal S2, Rate Normal, Regular Rhythm, Negative: Murmurs Telemetry: Positive: Sinus Extremity Exam: Positive: Clubbing, Cyanosis, Normal pulses, Negative: Edema Skin Exam: Positive: Nl turgor and temperature Neuro Exam: Positive: Other (noted involuntary movement of BUE and BLE. Legs kicking, moving, posturing. ), Sensation Intact, Negative: Normal Speech Psych Exam: Positive: Oriented x 3, Other (does not vocalize low mood today.), Negative: Mood NL Assessment /Plan Problems (1) Abnormal involuntary movement Status: Acute Problem Text: 10/15/2016: recurrence of episode. HOLD DC. call placed into on- call Neurology: Dr. Dyson. 10/14 - Tremor resolved, Per Neuro Seroquel 25 mg po BID, anticipate d/c in AM. 10/12 Attending Note: Tremor now significantly improved; no tremor in legs and tremor in arms and head improved somewhat. 10/12 - Neuro following, started on Seroquel 12.5 last night per Neuro, symptoms really are unchanged per pt 10/11 Patient was recently started on risperidone and citalopram - Question adverse drug reaction to risperidone - Question possible serotonin syndrome Other possibilities include underlying Parkinson's disease - Neurology is consulted and will see patient today Prescribed Ativan 1 mg every 6 hours as needed for agitation; has not needed this since last night Prescribe Benadryl Continue patient on home medication - Primidone (2) Diabetes mellitus Status: Chronic Problem Text: Continue sliding scale insulin and FSBS QACHS (3) Hypothyroidism Status: Chronic Problem Text: Continue patient on home medication - Levothyroxine (4) Hypertension Status: Chronic Problem Text: Patient's blood pressure better controlled this afternoon. Continue ramipril. (5) Chronic low back pain Status: Chronic Problem Text: Made worse by tremor and hospital bed; currently receiving oxycodone/acetaminophen Q6H PRN and lidoderm 5% patch. Plan/VTE VTE Prophylaxis Ordered?: Yes (Lovenox 40 mg subcutaneous daily) Plan/Urinary Catheter Reason for insertion/continuin: Other-document below Plan Diet: Continue Current Activity: Continue Current Diagnostics: Check Labs, Repeat Labs in AM Anticipated [facility] Vital Signs Date Time Temp Pulse Resp B/P Pulse Ox O2 Delivery O2 Flow Rate FiO2 10/15/16 10:11 16 10/15/16 08:00 Room Air 10/15/16 07:59 161/75 10/15/16 06:00 98.5 74 90 I&O- Last 24 Hours up to 6 AM 10/15/16 06:00 Intake Total 1980 ml Output Total 600 ml Balance 1380 ml Laboratory Data 24H LABS Laboratory Tests 2 10/14/16 16:27: Bedside Glucose (Misc Panel) 89 10/14/16 20:01: Bedside Glucose (Misc Panel) 166H 10/15/16 06:46: Anion Gap 8, Blood Urea Nitrogen 9, Creatinine 0.70, Sodium Level 140, Potassium Level 4.1, Chloride Level 105, Carbon Dioxide Level 27, Calcium Level 8.2L, Glomerular Filtration Rate > 60.0 CBC/BMP Laboratory Tests 10/15/16 06:46 Calcium Level 8.2 L, Red Blood Count 3.25 L, Mean Corpuscular Volume 95.7, Mean Corpuscular Hemoglobin 32.7, Mean Corpuscular Hemoglobin Concent 34.2, Red Cell Distribution Width 13.2 Sherlyn Moore [employer] Oct 15, 2016 12:06
[2016-10-15 12:43] LABS: FREE T4 0.94 NG/DL (0.76-1.46)
[2016-10-15 14:00] VITALS: BP 139/75
[2016-10-15] MEDS: **NOTE PATIENT COMMENT** MISC XX SCH (20:13)
[2016-10-15] MEDS: QUEtiapine FUMARATE 50 MG TAB PO SCH (20:13)
[2016-10-15 22:00] VITALS: BP 163/78
[2016-10-16] MEDS: LEVOTHYROXINE 0.1 MG TAB (100 MCG) PO SCH (05:11)
[2016-10-16] MEDS: SLF 3 ML SYR IV SCH ×3 (05:11→20:42)
[2016-10-16 06:00] VITALS: BP 134/86
[2016-10-16 07:11] LABS: MEAN CORPUSCULAR HEMOGLOBIN 33.1 pg (27.0-33.0); MEAN CORPUSCULAR HGB CONC 34.9 g/dl (32.0-36.5); RED CELL DISTRIBUTION WIDTH 13.1 % (11.5-14.5); WHITE BLOOD COUNT 5.1 K/mm3 (4.0-10.0)
[2016-10-16 07:35] LABS: ANION GAP 8 MEQ/L (8-16); BLOOD UREA NITROGEN 12 MG/DL (7-18); CALCIUM LEVEL 8.4 MG/DL (8.8-10.2); CARBON DIOXIDE LEVEL 28 MEQ/L (21-32); CHLORIDE LEVEL 102 MEQ/L (98-107); CREATININE FOR GFR 0.73 MG/DL (0.55-1.02); GLOMERULAR FILTRATION RATE > 60.0 (>39); GLUCOSE, FASTING 118 MG/DL (83-110); POTASSIUM SERUM 4.4 MEQ/L (3.5-5.1); SODIUM LEVEL 138 MEQ/L (136-145)
[2016-10-16] MEDS: RAMIPRIL 5 MG CAP PO SCH (08:07)
[2016-10-16] MEDS: POTASSIUM CHLORIDE 10 MEQ SR TABLET PO SCH ×2 (08:08→20:41)
[2016-10-16] MEDS: PRIMIDONE 125MG PER 1/2 TABLET PO SCH ×2 (08:08→20:41)
[2016-10-16] MEDS: QUEtiapine FUMARATE 25 MG TAB PO SCH (08:08)
[2016-10-16] MEDS: LIDOCAINE 5% (LIDODERM) PATCH TD SCH (08:09)
[2016-10-16] MEDS: HumaLOG INSULIN (NovoLOG) PER UNIT SC SCH ×4 (08:10→20:43)
[2016-10-16] MEDS ORDERED: HYDROCORTISONE 0.5% EXT PRN (08:15)
[2016-10-16] MEDS: PERCOCET 5MG/325MG TAB PO PRN ×3 (08:16→20:41)
--- NOTE | 2016-10-16 08:18 | IPNPDOC ---
Subjective Date Seen The patient was seen on 10/16/16. Subjective Chief Complaint/HPI The patient is a 76-year-old female admitted with a reason for visit of Seretonin Syndrome. Events since last encounter Medications adjusted by Neurology. Patient noting significant slowing of tremors , yet feelign sluggish, fatigued. Also c/o hemorrhoids relieved at home with suppository medication. Noting rash to chest and back related to anxiety/ nervousness. + itching. Constitutional: Denies: Chills, Fever, Night Sweats Skin: Denies: Breakdown, Lesions, Rash Pulmonary: Denies: Cough, Dyspnea Cardiovascular: Denies: Chest Pain, Lt Headedness, Orthopnea, Palpitations, Paroxysmal Noc. Dyspnea Gastrointestinal: Denies: Abdominal Pain, Constipation, Diarrhea, Nausea, Vomiting Genitourinary: Denies: Dysuria, Frequency, Incontinence, Retention Psych: Reports: Mood Normal, Denies: Depression, Memory Issues Objective Physical Examination General Exam: Positive: Alert, Cooperative, No Acute Distress Neck Exam: Positive: Supple Chest Exam: Positive: Clear to auscultation, Normal air movement Heart Exam: Positive: Normal S1, Normal S2, Rate Normal, Regular Rhythm, Negative: Murmurs Telemetry: Positive: Sinus Extremity Exam: Positive: Clubbing, Cyanosis, Normal pulses, Negative: Edema Skin Exam: Positive: Nl turgor and temperature Neuro Exam: Positive: Other (finer tremors. sluggish in repsonse and ambulation. mildly shuffling gait. Sitting on her right hand and arm to restrain unwanted movements.), Sensation Intact, Negative: Normal Speech Psych Exam: Positive: Oriented x 3, Other (does not vocalize low mood today.), Negative: Mood NL Assessment /Plan Problems (1) Abnormal involuntary movement Status: Acute Problem Text: 10/16/16: improved with Change in medication dosing. Continue with neuro. Consider DC home in am if tremors remain fine and stable. 10/15/2016: recurrence of episode. HOLD DC. call placed into on-call Neurology: Dr. Dyson. 10/14 - Tremor resolved, Per Neuro Seroquel 25 mg po BID, anticipate d/c in AM. 10/12 Attending Note: Tremor now significantly improved; no tremor in legs and tremor in arms and head improved somewhat. 10/12 - Neuro following, started on Seroquel 12.5 last night per Neuro, symptoms really are unchanged per pt 10/11 Patient was recently started on risperidone and citalopram - Question adverse drug reaction to risperidone - Question possible serotonin syndrome Other possibilities include underlying Parkinson's disease - Neurology is consulted and will see patient today Prescribed Ativan 1 mg every 6 hours as needed for agitation; has not needed this since last night Prescribe Benadryl Continue patient on home medication - Primidone (2) Diabetes mellitus Status: Chronic Problem Text: Continue sliding scale insulin and FSBS QACHS (3) Hypothyroidism Status: Chronic Problem Text: Continue patient on home medication - Levothyroxine (4) Hypertension Status: Chronic Problem Text: Patient's blood pressure better controlled this afternoon. Continue ramipril. (5) Chronic low back pain Status: Chronic Problem Text: Made worse by tremor and hospital bed; currently receiving oxycodone/acetaminophen Q6H PRN and lidoderm 5% patch. Plan/VTE VTE Prophylaxis Ordered?: Yes (Lovenox 40 mg subcutaneous daily) Plan/Urinary Catheter Reason for insertion/continuin: Other-document below Plan Diet: Continue Current Activity: Continue Current Diagnostics: Check Labs, Repeat Labs in AM Anticipated Discharge: Home VS, I&O, 24H, [facility] Vital Signs/I&O Vital Signs Date Time Temp Pulse Resp B/P Pulse Ox O2 Delivery O2 Flow Rate FiO2 10/16/16 06:00 100.0 79 18 134/86 93 Room Air I&O- Last 24 Hours up to 6 AM 10/16/16 06:00 Intake Total 900 ml Output Total 2300 ml Balance -1400 ml Laboratory Data 24H LABS Laboratory Tests 2 10/15/16 11:49: Bedside Glucose (Misc Panel) 105 10/15/16 16:38: Bedside Glucose (Misc Panel) 107 10/15/16 20:02: Bedside Glucose (Misc Panel) 155H 10/16/16 06:33: Anion Gap 8, Blood Urea Nitrogen 12, Creatinine 0.73, Sodium Level 138, Potassium Level 4.4, Chloride Level 102, Carbon Dioxide Level 28, Calcium Level 8.4L, Glomerular Filtration Rate > 60.0 CBC/BMP Laboratory Tests 10/16/16 06:33 Calcium Level 8.4 L, Red Blood Count 3.34 L, Mean Corpuscular Volume 95.0, Mean Corpuscular Hemoglobin 33.1 H, Mean Corpuscular Hemoglobin Concent 34.9, Red Cell Distribution Width 13.1 Attending Note Attending Note Patient examined. Agree with findings and plan as noted by Ms. Moore. Primary management per Dr. Garvey. Should be able to discharge once she is safe. Sherlyn Moore Oct 16, 2016 08:18 Bruno Hollingsworth MD Oct 16, 2016 09:29
[2016-10-16] MEDS: ENOXAPARIN 40 MG/0.4 ML SYRINGE (J1650) SC SCH (09:00)
[2016-10-16] MEDS: ANUSOL HC 25MG SUPP PR SCH ×3 (11:16→20:42)
[2016-10-16 14:00] VITALS: BP 127/63
[2016-10-16] MEDS: LORazepam 1 MG TAB PO PRN (19:39)
[2016-10-16] MEDS: QUEtiapine FUMARATE 50 MG TAB PO SCH (20:41)
[2016-10-16] MEDS: **NOTE PATIENT COMMENT** MISC XX SCH (20:43)
[2016-10-16 22:00] VITALS: BP 158/74
[2016-10-17] MEDS: SLF 3 ML SYR IV SCH ×3 (05:44→21:52)
[2016-10-17] MEDS: LEVOTHYROXINE 0.1 MG TAB (100 MCG) PO SCH (05:45)
[2016-10-17] MEDS: ANUSOL HC 25MG SUPP PR SCH ×3 (05:45→20:14)
[2016-10-17] MEDS: PERCOCET 5MG/325MG TAB PO PRN ×3 (05:48→20:15)
[2016-10-17 06:00] VITALS: BP 162/74
[2016-10-17 07:09] LABS: MEAN CORPUSCULAR HEMOGLOBIN 31.6 pg (27.0-33.0); MEAN CORPUSCULAR HGB CONC 33.1 g/dl (32.0-36.5); MEAN CORPUSCULAR VOLUME 95.4 fl (80.0-96.0); RED CELL DISTRIBUTION WIDTH 12.9 % (11.5-14.5); WHITE BLOOD COUNT 5.2 K/mm3 (4.0-10.0)
[2016-10-17] MEDS: LORazepam 1 MG TAB PO PRN ×3 (07:27→20:13)
[2016-10-17] MEDS: HumaLOG INSULIN (NovoLOG) PER UNIT SC SCH ×4 (07:30→20:20)
[2016-10-17 07:37] LABS: ANION GAP 10 MEQ/L (8-16); BLOOD UREA NITROGEN 18 MG/DL (7-18); CALCIUM LEVEL 8.5 MG/DL (8.8-10.2); CARBON DIOXIDE LEVEL 28 MEQ/L (21-32); CHLORIDE LEVEL 101 MEQ/L (98-107); CREATININE FOR GFR 0.79 MG/DL (0.55-1.02); GLOMERULAR FILTRATION RATE > 60.0 (>39); GLUCOSE, FASTING 123 MG/DL (83-110); POTASSIUM SERUM 4.6 MEQ/L (3.5-5.1); SODIUM LEVEL 139 MEQ/L (136-145)
[2016-10-17] MEDS: PRIMIDONE 125MG PER 1/2 TABLET PO SCH ×2 (09:05→20:14)
[2016-10-17] MEDS: QUEtiapine FUMARATE 25 MG TAB PO SCH (09:05)
[2016-10-17] MEDS: POTASSIUM CHLORIDE 10 MEQ SR TABLET PO SCH ×2 (09:06→20:13)
[2016-10-17] MEDS: LIDOCAINE 5% (LIDODERM) PATCH TD SCH (09:06)
[2016-10-17] MEDS: RAMIPRIL 5 MG CAP PO SCH (09:07)
[2016-10-17] MEDS: ENOXAPARIN 40 MG/0.4 ML SYRINGE (J1650) SC SCH (09:07)
--- NOTE | 2016-10-17 10:19 | IPNPDOC ---
Subjective Date Seen The patient was seen on 10/17/16. Subjective Chief Complaint/HPI The patient is a 76-year-old female admitted with a reason for visit of Seretonin Syndrome. Events since last encounter Tremors continue to improve on Current medications. Had new RX ordered by Neurology that comes in to [facility] today. PT eval completed today, not safe for DC home. Constitutional: Denies: Chills, Fever, Night Sweats Skin: Denies: Breakdown, Lesions, Rash Pulmonary: Denies: Cough, Dyspnea Cardiovascular: Denies: Chest Pain, Lt Headedness, Orthopnea, Palpitations, Paroxysmal Noc. Dyspnea Gastrointestinal: Denies: Abdominal Pain, Constipation, Diarrhea, Nausea, Vomiting Genitourinary: Denies: Dysuria, Frequency, Incontinence, Retention Psych: Reports: Mood Normal, Denies: Depression, Memory Issues Objective Physical Examination General Exam: Positive: Alert, Cooperative, No Acute Distress Neck Exam: Positive: Supple Chest Exam: Positive: Clear to auscultation, Normal air movement Heart Exam: Positive: Normal S1, Normal S2, Rate Normal, Regular Rhythm, Negative: Murmurs Telemetry: Positive: Sinus Extremity Exam: Positive: Clubbing, Cyanosis, Normal pulses, Negative: Edema Skin Exam: Positive: Nl turgor and temperature Neuro Exam: Positive: Other (fine tremors. mostly to right side. Ambulating with PT. RIght foot shows lag when ambulating. ), Sensation Intact, Negative: Normal Speech Psych Exam: Positive: Oriented x 3, Other (does not vocalize low mood today.), Negative: Mood NL Assessment /Plan Problems (1) Abnormal involuntary movement Status: Acute Problem Text: 10/17/2016: nursing staff to attempt to have medication from Pharmacy delivered to statr today. Unsafe for DC home, re-eval in am. 10/16/16: improved with Change in medication dosing. Continue with neuro. Consider DC home in am if tremors remain fine and stable. 10/15/2016: recurrence of episode. HOLD DC. call placed into on-call Neurology: Dr. Dyson. 10/14 - Tremor resolved, Per Neuro Seroquel 25 mg po BID, anticipate d/c in AM. 10/12 Attending Note: Tremor now significantly improved; no tremor in legs and tremor in arms and head improved somewhat. 10/12 - Neuro following, started on Seroquel 12.5 last night per Neuro, symptoms really are unchanged per pt 10/11 Patient was recently started on risperidone and citalopram - Question adverse drug reaction to risperidone - Question possible serotonin syndrome Other possibilities include underlying Parkinson's disease - Neurology is consulted and will see patient today Prescribed Ativan 1 mg every 6 hours as needed for agitation; has not needed this since last night Prescribe Benadryl Continue patient on home medication - Primidone (2) Diabetes mellitus Status: Chronic Problem Text: Continue sliding scale insulin and FSBS QACHS (3) Hypothyroidism Status: Chronic Problem Text: Continue patient on home medication - Levothyroxine (4) Hypertension Status: Chronic Problem Text: Patient's blood pressure better controlled this afternoon. Continue ramipril. (5) Chronic low back pain Status: Chronic Problem Text: Made worse by tremor and hospital bed; currently receiving oxycodone/acetaminophen Q6H PRN and lidoderm 5% patch. Plan/VTE VTE Prophylaxis Ordered?: Yes (Lovenox 40 mg subcutaneous daily) Plan/Urinary Catheter Reason for insertion/continuin: Other-document below Plan Diet: Continue Current Activity: Continue Current Diagnostics: Check Labs, Repeat Labs in AM Anticipated Discharge: Home VS, I&O, 24H, [facility] Vital Signs/I&O Vital Signs Date Time Temp Pulse Resp B/P Pulse Ox O2 Delivery O2 Flow Rate FiO2 10/17/16 09:07 162/74 10/17/16 06:18 18 Room Air 10/17/16 06:00 98.5 78 95 I&O- Last 24 Hours up to 6 AM 10/17/16 06:00 Intake Total 1160 ml Output Total 1900 ml Balance -740 ml Laboratory Data 24H LABS Laboratory Tests 2 10/16/16 12:08: Bedside Glucose (Misc Panel) 105 10/16/16 16:55: Bedside Glucose (Misc Panel) 125H 10/16/16 20:35: Bedside Glucose (Misc Panel) 136H 10/17/16 06:46: Anion Gap 10, Blood Urea Nitrogen 18, Creatinine 0.79, Sodium Level 139, Potassium Level 4.6, Chloride Level 101, Carbon Dioxide Level 28, Calcium Level 8.5L, Glomerular Filtration Rate > 60.0 CBC/BMP Laboratory Tests 10/17/16 06:46 Calcium Level 8.5 L, Red Blood Count 3.48 L, Mean Corpuscular Volume 95.4, Mean Corpuscular Hemoglobin 31.6, Mean Corpuscular Hemoglobin Concent 33.1, Red Cell Distribution Width 12.9 Sherlyn Moore [facility] Oct 17, 2016 10:19
[2016-10-17 14:00] VITALS: BP 121/58
[2016-10-17] MEDS: QUEtiapine FUMARATE 50 MG TAB PO SCH (20:13)
[2016-10-17] MEDS: **NOTE PATIENT COMMENT** MISC XX SCH (20:20)
[2016-10-17 22:00] VITALS: BP 132/61
[2016-10-18] MEDS: PERCOCET 5MG/325MG TAB PO PRN ×3 (05:11→20:50)
[2016-10-18] MEDS: LORazepam 1 MG TAB PO PRN ×2 (05:11→19:24)
[2016-10-18] MEDS: ANUSOL HC 25MG SUPP PR SCH ×3 (05:11→20:48)
[2016-10-18] MEDS: LEVOTHYROXINE 0.1 MG TAB (100 MCG) PO SCH (05:11)
[2016-10-18 06:00] VITALS: BP 110/56
[2016-10-18] MEDS: SLF 3 ML SYR IV SCH ×3 (06:00→20:48)
[2016-10-18 07:24] LABS: MEAN CORPUSCULAR HEMOGLOBIN 32.2 pg (27.0-33.0); MEAN CORPUSCULAR HGB CONC 33.7 g/dl (32.0-36.5); MEAN CORPUSCULAR VOLUME 95.6 fl (80.0-96.0); RED CELL DISTRIBUTION WIDTH 13.1 % (11.5-14.5); WHITE BLOOD COUNT 5.5 K/mm3 (4.0-10.0)
[2016-10-18 07:38] LABS: ANION GAP 9 MEQ/L (8-16); BLOOD UREA NITROGEN 18 MG/DL (7-18); CALCIUM LEVEL 8.7 MG/DL (8.8-10.2); CARBON DIOXIDE LEVEL 27 MEQ/L (21-32); CHLORIDE LEVEL 102 MEQ/L (98-107); CREATININE FOR GFR 0.77 MG/DL (0.55-1.02); GLOMERULAR FILTRATION RATE > 60.0 (>39); GLUCOSE, FASTING 118 MG/DL (83-110); POTASSIUM SERUM 4.5 MEQ/L (3.5-5.1); SODIUM LEVEL 138 MEQ/L (136-145)
[2016-10-18 07:53] VITALS: BP 179/59
[2016-10-18] MEDS: QUEtiapine FUMARATE 25 MG TAB PO SCH (08:26)
[2016-10-18] MEDS: HumaLOG INSULIN (NovoLOG) PER UNIT SC SCH ×4 (08:27→20:48)
[2016-10-18] MEDS: RAMIPRIL 5 MG CAP PO SCH (08:28)
[2016-10-18] MEDS: ENOXAPARIN 40 MG/0.4 ML SYRINGE (J1650) SC SCH (08:28)
[2016-10-18] MEDS: LIDOCAINE 5% (LIDODERM) PATCH TD SCH (08:29)
[2016-10-18] MEDS: PRIMIDONE 125MG PER 1/2 TABLET PO SCH ×2 (08:29→20:48)
[2016-10-18] MEDS: POTASSIUM CHLORIDE 10 MEQ SR TABLET PO SCH ×2 (08:29→20:47)
[2016-10-18 08:45] LABS: VENOUS BASE EXCESS 2.2 (-2.0-2.0); VENOUS PARTIAL PRESSURE CO2 44.4 mmHg (38.0-50.0); VENOUS PARTIAL PRESSURE O2 81.8 mmHg (30.0-50.0); VENOUS STANDARD HCO3 26.4 MEQ/L; VENOUS TOTAL CO2 28.7 MEQ/L (24.0-28.0)
--- NOTE | 2016-10-18 09:17 | IPNPDOC ---
Subjective Date Seen The patient was seen on 10/18/16. Subjective Chief Complaint/HPI The patient is a 76-year-old female admitted with a reason for visit of Seretonin Syndrome. Events since last encounter Called by nursing staff: patient with right leg weakness: "giving out" of RLE with OT this am. Vital signs taken, patient hypertensive with tachycardia and irregular HR. EKG ordered. CIP and troponin ordered. Patient c/o midsternal CP. States has been present on and off, never admitted to it, thought it was anxiety. Admits to Right side weakness since this am. Denies difficulty swallowing. + slight confusion. STAT CT ordered. VBG, CIP with troponin, prolactin, serotonin level, all pending. CBC and CMP from this am negative. Constitutional: Denies: Chills, Fever, Night Sweats Eyes: Denies: Pain, Vision change ENT: Denies: Dysphagia, Ear Pain, Head Aches Pulmonary: Denies: Cough, Dyspnea Cardiovascular: Reports: Chest Pain, Denies: Edema, Lt Headedness, Orthopnea, Other Symptoms, Palpitations, Paroxysmal Noc. Dyspnea Gastrointestinal: Denies: Abdominal Pain, Constipation, Diarrhea, Nausea, Vomiting Genitourinary: Denies: Dysuria, Frequency, Incontinence, Retention Musculoskeletal: Reports: Spasms (involuntary movements to RUE, RLE), Denies: Back Pain, Joint Pain, Muscle Pain, Neck Pain Neurological: Reports: Change in speech, Confusion, Incoordination, Weakness ( RUE and RLE), Denies: Numbness, Seizures Psych: Reports: Anxiety, Memory Issues, Denies: Thoughts of Self Harm Objective Physical Examination General Exam: Positive: Cooperative Eye Exam: Positive: Conjunctiva & lids normal, Other Eye Symptoms (ocular hyperreflexia) ENT Exam: Positive: Atraumatic, Tongue Midline, Negative: Mucous membr. moist/pink Neck Exam: Positive: Supple, Negative: JVD, Lymphadenopathy, thyromegaly Chest Exam: Positive: Clear to auscultation, Normal air movement Heart Exam: Positive: Normal S1, Normal S2, Tachycardic Telemetry: Positive: Tachycardia Abdomen Exam: Positive: Normal bowel sounds, Soft, Tenderness (right lower quadrant) Extremity Exam: Positive: Normal pulses, Other (random, involuntary tremulous motions of upper and lower extremities), Negative: Clubbing, Cyanosis, Edema, Swelling Skin Exam: Positive: Nl turgor and temperature Neuro Exam: Positive: Normal Speech, Normal Tone, Other (tongue deviates to right side, RUE and RLE 1-2/5 in strength, answers questions, appears vague) Psych Exam: Positive: Oriented x 3, Other (does not vocalize low mood today.), Negative: Mood NL Assessment /Plan Problems (1) Abnormal involuntary movement Status: Acute Problem Text: 10/17/2016: nursing staff to attempt to have medication from Pharmacy delivered to statr today. Unsafe for DC home, re-eval in am. 10/16/16: improved with Change in medication dosing. Continue with neuro. Consider DC home in am if tremors remain fine and stable. 10/15/2016: recurrence of episode. HOLD DC. call placed into on-call Neurology: Dr. Dyson. 10/14 - Tremor resolved, Per Neuro Seroquel 25 mg po BID, anticipate d/c in AM. 10/12 Attending Note: Tremor now significantly improved; no tremor in legs and tremor in arms and head improved somewhat. 10/12 - Neuro following, started on Seroquel 12.5 last night per Neuro, symptoms really are unchanged per pt 10/11 Patient was recently started on risperidone and citalopram - Question adverse drug reaction to risperidone - Question possible serotonin syndrome Other possibilities include underlying Parkinson's disease - Neurology is consulted and will see patient today Prescribed Ativan 1 mg every 6 hours as needed for agitation; has not needed this since last night Prescribe Benadryl Continue patient on home medication - Primidone (2) Diabetes mellitus Status: Chronic Problem Text: Continue sliding scale insulin and FSBS QACHS (3) Hypothyroidism Status: Chronic Problem Text: Continue patient on home medication - Levothyroxine (4) Hypertension Status: Chronic Problem Text: Patient's blood pressure better controlled this afternoon. Continue ramipril. (5) Chronic low back pain Status: Chronic Problem Text: Made worse by tremor and hospital bed; currently receiving oxycodone/acetaminophen Q6H PRN and lidoderm 5% patch. (6) Chest pain Status: Acute Problem Text: EKG: CIP pending. Transfer to PCU for monitoring 10/18 1015: CIP negative. repeat q 6 hrs with EKG (7) Right sided weakness Status: Acute Problem Specific Plan: Consult Specialist Problem Text: D/W Dr. Dyson. Plan for CT scan brain. Will call [facility] Neuro for stroke consult pending CT results. Received Lovenox at 0830 this am. [employer]CH[employer]ICIAN will have increased bleeding risk. 1015: S/p telemed with Campbell Becerra,Dr. Kalyani Ulrich. Patient with low NIH stroke scale. Patient seems to be improving. TPA not indicated at this time. MRI /MRA of brain ordered. MRA carotids ordered. Patient to be transferred to PCU for monitoring to r/o cardiac arrhythmia. Echo is up to date. Neurology will follow patient. Plan/VTE VTE Prophylaxis Ordered?: Yes (Lovenox 40 mg subcutaneous daily) Plan/Urinary Catheter Reason for insertion/continuin: Other-document below Plan Diet: Continue Current Activity: Continue Current Diagnostics: Check Labs, Repeat Labs in AM Anticipated Discharge: Home VS, I&O, 24H, [facility] Vital Signs/I&O Vital Signs Date Time Temp Pulse Resp B/P Pulse Ox O2 Delivery O2 Flow Rate FiO2 10/18/16 08:28 150/80 10/18/16 07:53 99.2 64 20 92 Room Air I&O- Last 24 Hours up to 6 AM 10/18/16 05:59 Intake Total 1320 ml Output Total 1100 ml Balance 220 ml Laboratory Data 24H LABS Laboratory Tests 2 10/17/16 11:44: Bedside Glucose (Misc Panel) 116H 10/17/16 17:04: Bedside Glucose (Misc Panel) 155H 10/17/16 20:11: Bedside Glucose (Misc Panel) 157H 10/18/16 07:00: Anion Gap 9, Blood Urea Nitrogen 18, Creatinine 0.77, Sodium Level 138, Potassium Level 4.5, Chloride Level 102, Carbon Dioxide Level 27, Calcium Level 8.7L, Glomerular Filtration Rate > 60.0 10/18/16 08:37: Blood Gas Bicarbonate Standard 26.4, Venous Blood Base Excess 2.2H, Venous Blood pH 7.407, Venous Blood Partial Pressure CO2 44.4, Venous Blood Partial Pressure O2 81.8H, Venous Blood Total Carbon Dioxide 28.7H, Venous Blood HCO3 27.3H, Venous Blood Oxygen Saturation 96.0H 10/18/16 08:46: CBC/BMP Laboratory Tests 10/18/16 07:00 Calcium Level 8.7 L, Red Blood Count 3.43 L, Mean Corpuscular Volume 95.6, Mean Corpuscular Hemoglobin 32.2, Mean Corpuscular Hemoglobin Concent 33.7, Red Cell Distribution Width 13.1 Sherlyn Moore [facility] Oct 18, 2016 09:17
[2016-10-18 09:28] LABS: INR 1.04
--- NOTE | 2016-10-18 09:52 | REP ---
CT BRAIN WITHOUT CONTRAST: 10/18/2016 COMPARISON: CT brain 10/10/2016, MRI brain 08/01/2016. CLINICAL HISTORY: Altered mental status, possible stroke. FINDINGS: Ventricles are midline, symmetric and their size proportionate to the diffuse cerebral atrophy which is all age appropriate. No midline shift. The third and fourth ventricles also intact. There is some mild heterogeneous appearance to the white matter tracts bilaterally suggesting some chronic small vessel white matter ischemic change and stable appearance. Basal ganglia is symmetric and intact. Cortical stripe shows atrophy but no vascular territory infarct, hemorrhage, mass or mass effect. Brainstem preserved. The cerebellum shows no bleed or mass. There is some mild cerebellar atrophy. The basal cisterns are intact. Mastoids and visualized sinuses intact. The calvarium and skull base are without fracture or focal lesion. There are vascular calcifications in the carotid siphons. IMPRESSION: 1. Chronic small vessel white matter ischemic changes of aging and mild cerebral atrophy and proportionate ventricular size normal for age. 2. No intracranial hemorrhage, acute infarct, mass or edema. No mass effect. 3. Vascular calcifications in the carotid siphons with the visualized sinuses and mastoids clear. Skull base and calvarium intact. Stable exam. Signed by Edwardo Mota MD 10/18/2016 10:46 A
[2016-10-18 11:00] VITALS: BP 133/69
[2016-10-18 17:00] VITALS: BP 120/74
--- NOTE | 2016-10-18 18:27 | ECGEPIP ---
Stationary ECG Study [facility] Test Date: 2016-10-18 Pat Name: MARIAH BARAJAS Department: Room: [place] [address] Gender: F Gluten Settling Tender: DOLORES : 1940 Requested By: Sherlyn MCGRATH Order Number: [id number] Reading MD: Santosh Hernandes Measurements Intervals [place] Rate: 127 P: 69 SD: 158 QRS: 8 QRSD: 79 T: 28 QT: 296 QTc: 432 Interpretive Statements SINUS TACHYCARDIA WITH FREQUENT VENTRICULAR PREMATURE COMPLEXES IN TRIGEMINY LOW QRS VOLTAGE IN PRECORDIAL LEADS PROBABLE INFERIOR MYOCARDIAL INFARCTION, PROBABLY OLD WITH POSTERIOR EXTENSION INTERPRETATION BASED ON A DEFAULT AGE OF 40 YEARS COMPARED TO THE LAST 2 TRACINGS IN 2012, PVCs ARE NEW. THERE WAS ARTIFACT MASKING THE BASELINE Electronically Signed On 10-18-2016 18:26:57 EDT by Santosh Hernandes
--- NOTE | 2016-10-18 18:36 | ECGEPIP ---
Stationary ECG Study [facility] Test Date: 2016-10-18 Pat Name: MARIAH BARAJAS Department: Room: [place] [address] Gender: F Licensed Home Inspector: DOLORES : 1940 Requested By: Sherlyn MCGRATH Order Number: [id number] Reading MD: Santosh Hernandes Measurements Intervals [place] Rate: 97 P: 54 ME: 153 QRS: -4 QRSD: 78 T: 21 QT: 313 QTc: 398 Interpretive Statements SINUS RHYTHM WITH FREQUENT VENTRICULAR PREMATURE COMPLEXES. MICKYINRowan NOW NOTED LOW QRS VOLTAGE IN PRECORDIAL LEADS POSSIBLE INFERIOR MYOCARDIAL INFARCTION, PROBABLY OLD WITH POSTERIOR EXTENSION LAST TRACING ON 10/18/2016 AT 8:20:52, HEART RATE IS NOW SLOWER OTHERWISE NO SIGNIFICANT CHANGES Electronically Signed On 10-18-2016 18:36:29 EDT by Santosh Hernandes
--- NOTE | 2016-10-18 18:47 | ECGEPIP ---
Stationary ECG Study [facility] Test Date: 2016-10-18 Pat Name: MARIAH BARAJAS Department: Room: [place] [address] Gender: F Clinical Supervisor: ANGELICA : 1940 Requested By: Sherlyn MCGRATH Order Number: [id number] Reading MD: Santosh Hernandes Measurements Intervals [place] Rate: 91 P: 64 DE: 151 QRS: 1 QRSD: 81 T: 40 QT: 367 QTc: 453 Interpretive Statements SINUS RHYTHM WITH FREQUENT VENTRICULAR PREMATURE COMPLEXES LOW QRS VOLTAGE IN PRECORDIAL LEADS ABNORMAL RHYTHM ECG NO DEFINITIVE MANIFESTATION OF PRIOR INFERIOR WALL INFARCT IN THIS TRACING COMPARED TO THE LAST 2 TRACINGS DONE EARLIER ON THE SAME DAY, PREMATURE VENTRICULAR CONTRACTIONS ARE NEW PER TODAY Electronically Signed On 10-18-2016 18:47:24 EDT by Santosh Hernandes
[2016-10-18] MEDS: ASPIRIN 81 MG ENTERIC TAB PO SCH (18:57)
[2016-10-18 20:00] VITALS: BP 151/80
[2016-10-18] MEDS: METOPROLOL TART 25 MG TABLET PO SCH (20:47)
[2016-10-18] MEDS: ISOSORBIDE MON. (IMDUR) 30 MG XR TAB PO SCH (20:47)
[2016-10-18] MEDS: QUEtiapine FUMARATE 50 MG TAB PO SCH (20:47)
[2016-10-18] MEDS: **NOTE PATIENT COMMENT** MISC XX SCH (20:48)
[2016-10-18 23:42] LABS: MAGNESIUM LEVEL 1.8 MG/DL (1.8-2.4)
--- NOTE | 2016-10-18 23:49 | ECGEPIP ---
Stationary ECG Study [facility] Test Date: 2016-10-18 Pat Name: MARIAH BARAJAS Department: Room: [place] [address] Gender: F Material Movers: BULL : 1940 Requested By: Sherlyn MCGRATH Order Number: [id number] Reading MD: Santosh Hernandes Measurements Intervals [place] Rate: 89 P: 60 PA: 145 QRS: 11 QRSD: 77 T: 42 QT: 360 QTc: 440 Interpretive Statements SINUS RHYTHM WITH FREQUENT VENTRICULAR PREMATURE COMPLEXES ABNORMAL RHYTHM ECG Compared to the last tracing on 10/18/2016 at 17:27:04, No significant changes Electronically Signed On 10-18-2016 23:48:39 EDT by Santosh Hernandes
[2016-10-19] VITALS (7 sets, daily range): BP systolic 101–154; BP diastolic 63–85
[2016-10-19] MEDS: PERCOCET 5MG/325MG TAB PO PRN ×3 (04:35→20:29)
[2016-10-19] MEDS: ANUSOL HC 25MG SUPP PR SCH ×3 (05:41→20:31)
[2016-10-19] MEDS: LEVOTHYROXINE 0.1 MG TAB (100 MCG) PO SCH (05:42)
[2016-10-19] MEDS: SLF 3 ML SYR IV SCH ×3 (05:42→20:30)
[2016-10-19 06:05] LABS: MEAN CORPUSCULAR HEMOGLOBIN 31.9 pg (27.0-33.0); MEAN CORPUSCULAR HGB CONC 33.2 g/dl (32.0-36.5); WHITE BLOOD COUNT 5.9 K/mm3 (4.0-10.0)
--- NOTE | 2016-10-19 08:41 | REP ---
MRI BRAIN WITHOUT AND WITH CONTRAST: 10/19/2015 CLINICAL HISTORY: Right-sided weakness. COMPARISON: CT brain 10/18/2016, MRI brain 08/01/2016. TECHNIQUE: Sagittal T1 with axial T1, T2, FLAIR, gradient echo, diffusion-weighted images and ADC mapping sequences. After infusion of 20 mL of ProHance, axial and coronal T1 sequences were provided. Ventricles are midline and symmetric and without displacement. Their size is proportionate to the mild diffuse cerebral atrophy. Basal ganglia are symmetric and grossly intact. There are some periventricular white matter changes and punctate hyperintense T2 and FLAIR foci in the subcortical and deep centrum semiovale white matter. There also two small foci of hyperintense signal in the thalami, one on each side. None of these show T1 hypointensity. There is no signal abnormality on the diffusion weighted images or ADC mapping sequences that would clearly define acute ischemia. Brainstem and cerebellum show no signal abnormality, hemorrhage or mass. There is atrophy in both cerebral hemispheres, age appropriate. Basal cisterns are intact. Seventh/eighth cranial nerve complexes and mastoids are intact. The ethmoid sinuses are clear. The orbits and contents are symmetric and normal. The corpus callosum, optic chiasm and suprasellar cistern are intact. There is a partially empty sella evident. There is no evidence of cerebellar tonsillar ectopia. After contrast administration, there is no abnormal meningeal enhancement, gyriform enhancement or vascular lesion. No enhancing mass. There is hyperostosis frontalis interna as a benign finding in this age group. IMPRESSION: 1. Chronic small vessel ischemic changes in the periventricular, subcortical and some in the deep white matter tracts unchanged. There is no enhancement of any of these areas. 2. No acute infarct, hemorrhage, mass or mass effect. 3. Mild atrophy with ventricular size in proportion and all age appropriate. Stable exam compared to the 08/01/2016 study. Signed by Edwardo Mota MD 10/19/2016 10:47 A
[2016-10-19] MEDS: LIDOCAINE 5% (LIDODERM) PATCH TD SCH (08:51)
[2016-10-19] MEDS: HumaLOG INSULIN (NovoLOG) PER UNIT SC SCH ×4 (08:52→20:21)
[2016-10-19] MEDS: ENOXAPARIN 40 MG/0.4 ML SYRINGE (J1650) SC SCH (08:52)
[2016-10-19] MEDS: LORazepam 1 MG TAB PO PRN (08:53)
[2016-10-19] MEDS: QUEtiapine FUMARATE 25 MG TAB PO SCH (08:53)
[2016-10-19] MEDS: PRIMIDONE 125MG PER 1/2 TABLET PO SCH ×2 (08:53→20:28)
[2016-10-19] MEDS: RAMIPRIL 5 MG CAP PO SCH (08:53)
[2016-10-19] MEDS: ASPIRIN 81 MG ENTERIC TAB PO SCH (08:54)
[2016-10-19] MEDS: ISOSORBIDE MON. (IMDUR) 30 MG XR TAB PO SCH (08:54)
[2016-10-19] MEDS: POTASSIUM CHLORIDE 10 MEQ SR TABLET PO SCH ×2 (08:54→20:30)
[2016-10-19] MEDS: METOPROLOL TART 25 MG TABLET PO SCH (08:55)
--- NOTE | 2016-10-19 08:56 | REP ---
MRA CAROTID WITHOUT AND WITH CONTRAST: 10/18/2016 CLINICAL HISTORY: right-sided weakness. COMPARISON: 02/18/2012 TECHNIQUE: 3D rkvq-kv-slznlq gradient echo by infusion of 20 mL ProHance with the rescanning and MIP reformatting of the volume acquisition rotated about the longitudinal axis of the neck. All source images are reviewed. FINDINGS: The study again shows mild stenosis of the origin of the right internal carotid, less than 30%. The remainder of the internal carotid artery is unremarkable. The right common carotid artery shows no stenosis or aneurysm. The course of the right ICA to the skull base was intact. The left common carotid artery was also unremarkable. Left internal carotid shows no significant stenosis or plaque at its origin. The course of the left internal carotid is unremarkable and without aneurysm. Left common carotid artery grossly unremarkable. There are fairly symmetric contributions to the basilar artery from the bilateral vertebral arteries. The caliber of those vessels are symmetric. There is some mild stenosis of the distal right vertebral near the junction. There were no acute findings. IMPRESSION: 1. Mild stenosis less than 30% at the origin of the right ICA. The left ICA unremarkable. No significant stenosis or aneurysm. 2. The bilateral vertebral arteries are symmetric in size and contribution of the basilar artery with some stenosis distal right vertebral artery noted at the junction. No significant change from 2011. Signed by Edwardo Mota MD 10/19/2016 10:49 A
--- NOTE | 2016-10-19 09:43 | REP ---
MRA BRAIN WITHOUT CONTRAST: 10/18/2016 CLINICAL HISTORY: Right-sided weakness. TECHNIQUE: 3D occy-rh-nbusan gradient echo MR images with MIP reformatting rotated about the longitudinal and horizontal axis of the brain. All source images are reviewed. COMPARISON: 04/27/2014, 02/18/2012. FINDINGS: The bilateral vertebral artery shows symmetric contribution to the basilar artery. The mild stenosis suggested on the MR carotids at the junction of the vertebrals is less apparent on the direct MRA brain. There is no basilar stenosis or aneurysm. There is symmetric normal origin of the posterior cerebral arteries from the basilar tip. On the right internal carotid through the skull base to the carotid siphon shows no stenosis or aneurysm. There is some atherosclerotic plaque in the siphon. Supraclinoid carotid was intact. The A1 segment on the right is smaller than on the left as on the previous study but has an anatomic variant. The M1 segment and trifurcation vessels on the right are normal. The anterior cerebral branches on the right are unremarkable on this image set. The left internal carotid from the skull base to the carotid siphon is grossly intact with small amounts of plaque in the carotid siphon. There is a tiny schwartz aneurysm at the origin of the ophthalmic artery from the internal carotid less than 2 mm, unchanged. The A1 segment on the left is slightly larger than on the right and the anterior cerebral branches on the left are unremarkable. The M1 segment and branches are unchanged. IMPRESSION: 1. 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 No significant finding. Otherwise and no interval change of any of the intracranial circulation. Signed by Edwardo Mota MD 10/19/2016 10:50 A
--- NOTE | 2016-10-19 12:02 | IPNPDOC ---
Subjective Date Seen The patient was seen on 10/19/16. Subjective Chief Complaint/HPI The patient is a 76-year-old female admitted with a reason for visit of Seretonin Syndrome. Events since last encounter tremors now limited to fine in nature. States feeling better. Continues with Right sided weakness. Constitutional: Denies: Chills, Fever, Night Sweats Skin: Denies: Breakdown, Lesions, Rash Pulmonary: Denies: Cough, Dyspnea Cardiovascular: Denies: Chest Pain, Lt Headedness, Orthopnea, Palpitations, Paroxysmal Noc. Dyspnea Gastrointestinal: Denies: Abdominal Pain, Constipation, Diarrhea, Nausea, Vomiting Neurological: Denies: Change in speech, Confusion, Numbness, Weakness Psych: Reports: Mood Normal, Denies: Depression, Memory Issues Objective Physical Examination General Exam: Positive: Cooperative Eye Exam: Positive: Conjunctiva & lids normal, Other Eye Symptoms (ocular hyperreflexia) ENT Exam: Positive: Atraumatic, Tongue Midline, Negative: Mucous membr. moist/pink Neck Exam: Positive: Supple, Negative: JVD, Lymphadenopathy, thyromegaly Chest Exam: Positive: Clear to auscultation, Normal air movement Heart Exam: Positive: Normal S1, Normal S2, Tachycardic Telemetry: Positive: Tachycardia Abdomen Exam: Positive: Normal bowel sounds, Soft, Tenderness (right lower quadrant) Extremity Exam: Positive: Normal pulses, Other (random, involuntary tremulous motions of upper and lower extremities), Negative: Clubbing, Cyanosis, Edema, Swelling Skin Exam: Positive: Nl turgor and temperature Neuro Exam: Positive: Normal Speech, Normal Tone, Other (tongue deviates to right side, RUE and RLE 1-2/5 in strength, answers questions, appears vague) Psych Exam: Positive: Oriented x 3, Other (does not vocalize low mood today.), Negative: Mood NL Assessment /Plan Problems (1) Abnormal involuntary movement Status: Acute Problem Text: 10/19/16: per Neuro. 10/17/2016: nursing staff to attempt to have medication from Pharmacy delivered to statr today. Unsafe for DC home, re-eval in am. 10/16/16: improved with Change in medication dosing. Continue with neuro. Consider DC home in am if tremors remain fine and stable. 10/15/2016: recurrence of episode. HOLD DC. call placed into on-call Neurology: Dr. Dyson. 10/14 - Tremor resolved, Per Neuro Seroquel 25 mg po BID, anticipate d/c in AM. 10/12 Attending Note: Tremor now significantly improved; no tremor in legs and tremor in arms and head improved somewhat. 10/12 - Neuro following, started on Seroquel 12.5 last night per Neuro, symptoms really are unchanged per pt 10/11 Patient was recently started on risperidone and citalopram - Question adverse drug reaction to risperidone - Question possible serotonin syndrome Other possibilities include underlying Parkinson's disease - Neurology is consulted and will see patient today Prescribed Ativan 1 mg every 6 hours as needed for agitation; has not needed this since last night Prescribe Benadryl Continue patient on home medication - Primidone (2) Diabetes mellitus Status: Chronic Problem Text: Continue sliding scale insulin and FSBS QACHS (3) Hypothyroidism Status: Chronic Problem Text: Continue patient on home medication - Levothyroxine (4) Hypertension Status: Chronic Problem Text: Patient's blood pressure better controlled this afternoon. Continue ramipril. (5) Chronic low back pain Status: Chronic Problem Text: Made worse by tremor and hospital bed; currently receiving oxycodone/acetaminophen Q6H PRN and lidoderm 5% patch. (6) Chest pain Status: Acute Problem Text: EKG: bigeminy CIP pending. Transfer to PCU for monitoring 10/18 1015: CIP negative. repeat q 6 hrs with EKG (7) Right sided weakness Status: Acute Problem Specific Plan: Consult Specialist Problem Text: 10/19/16: MRI/MRA negative. Monitor symptoms. D/W Dr. Dyson. Plan for CT scan brain. Will call [facility] for stroke consult pending CT results. Received Lovenox at 0830 this am. FULFILLMENT MAIL CLERK will have increased bleeding risk. 1015: S/p telemed with [facility],Dr. Kalyani Ulrich. Patient with low NIH stroke scale. Patient seems to be improving. TPA not indicated at this time. MRI /MRA of brain ordered. MRA carotids ordered. Patient to be transferred to PCU for monitoring to r/o cardiac arrhythmia. Echo is up to date. Neurology will follow patient. (8) Arrhythmia Status: Acute Problem Specific Plan: Consult Specialist Problem Text: Sinus tachycardia with PVCs noted. Cardiology consulted. Consult note unavailable. Plan/VTE VTE Prophylaxis Ordered?: Yes (Lovenox 40 mg subcutaneous daily) Plan/Urinary Catheter Reason for insertion/continuin: Other-document below Plan Diet: Continue Current Activity: Continue Current Diagnostics: Check Labs, Repeat Labs in AM Anticipated Discharge[facility] VS[facility] Signs/I&O Vital Signs Date Time Temp Pulse Resp B/P Pulse Ox O2 Delivery O2 Flow Rate FiO2 10/19/16 08:55 76 123/68 10/19/16 08:16 Nasal Cannula 2.0 10/19/16 07:15 96.9 20 100 I&O- Last 24 Hours up to 6 AM 10/19/16 06:00 Intake Total 640 ml Output Total 2200 ml Balance -1560 ml Laboratory Data 24H LABS Laboratory Tests 2 10/18/16 17:10: Creatine Kinase MB 1.0, Creatine Kinase MB Relative Index 2.94, Total Creatine Kinase 34, Troponin I 0.05 10/18/16 17:11: 10/18/16 22:39: Creatine Kinase MB 1.0, Creatine Kinase MB Relative Index 1.28, Total Creatine Kinase 78#, Troponin I 0.04, Magnesium Level 1.8 CBC/BMP Laboratory Tests 10/19/16 05:39 Red Blood Count 3.41 L, Mean Corpuscular Volume 96.0, Mean Corpuscular Hemoglobin 31.9, Mean Corpuscular Hemoglobin Concent 33.2, Red Cell Distribution Width 13.0 Sherlyn Moore LOSS CONTROL MANAGER Oct 19, 2016 12:01
[2016-10-19] MEDS: QUEtiapine FUMARATE 50 MG TAB PO SCH (20:29)
[2016-10-19] MEDS: METOPROLOL TART 50 MG TAB PO SCH (20:29)
[2016-10-19] MEDS: **NOTE PATIENT COMMENT** MISC XX SCH (20:30)
--- NOTE | 2016-10-19 20:47 | IPN ---
DATE: 10/19/2016 SUBJECTIVE: Mrs. Ynes Pollard was seen initially yesterday in the evening because of cardiac arrhythmias and also she was complaining of chest pain. She was started on small dose of metoprolol tartrate and a small dose of long-acting nitrate. She was evaluated last fall because of chest pain, and at that time, she had an echocardiogram as well as a nuclear stress test, they were benign. This time, she was admitted on 10/11/2016, with increasing tremors, and she is being monitored by neurology. 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 The immediate plan is to refer her to [facility] for movement disorders clinic. Yesterday, she developed right lower extremity weakness, but patient thinks that she was having the same problem she was having in the right upper extremity. At the same time, she was complaining of chest pain and she was found to have isolated premature ventricular contractions (PVCs) and some were in bigeminy. When I saw Mrs. Ynes Pollard, she was lying supine in bed in no acute distress at rest, and she thinks she is feeling better. She denies any chest pain at this present time, and she has no orthopnea or paroxysmal nocturnal dyspnea (PND). She continued to have isolated PVCs on telemetry and sometimes in bigeminy. Her serum magnesium was normal. There is no report of bleeding. OBJECTIVE: On physical examination, the patient is alert and oriented, in no acute distress at rest, and her vital signs early this afternoon were reported to be 139/63 and when I was at bedside and it was checked by the nurse, it was reported to be 154/85 with a pulse of about 100 including the PVCs, respirations 18, and her maximum temperature was 98.6 degrees Fahrenheit with an oxygen saturation of 92% on room air. HEENT: Examination of the head, ears, eyes, nose and throat: Atraumatic. NECK: Supple, no jugular venous distention (JVD) or carotid bruits. LUNGS: Did not reveal any wheezing or crackles. HEART: The heart examination revealed normal S1, S2 without gallops. The point of maximum impulse (PMI) is not displaced. There is no rub. ABDOMEN: Soft and nontender. EXTREMITIES: Reveal no pedal edema. Peripheral pulses, dorsalis pedis are +2 on ankle. NEUROLOGIC: Negative for focal deficit. IMPRESSION: 1. Chest pain in this 76-year-old woman with multiple risk factors for coronary artery disease (CAD) including family history. The patient seems to be stable and her serum troponin remains negative. She continues to have PVCs, and I will increase the beta debo, this also will help with her blood pressure. As mentioned above, she had a nuclear stress test as well as an echocardiogram last fall, and there was no ischemia or infarction, left ventricular ejection fraction (LVEF) was normal. She will need further cardiac workup such as a cardiac catheterization once her symptoms improve, and that can be arranged as outpatient. 2. Isolated premature ventricular contractions (PVCs), symptomatic at times, and will continue current medications and as mentioned above, I have today increased the beta debo, and she will be monitored. We will keep her on telemetry. 3. Hypertension. We will see how she responds to the higher dose of the beta debo. She is also on angiotension-converting enzyme (CHRISTINA) inhibitor/Ramipril. As mentioned above, long-acting nitrate/Imdur can be increased if she complains of chest pain. 4. Diabetes mellitus, is being addressed. 5. Choreoathetosis/hemiballismus, and she is being monitored by her primary and neurology. It was a pleasure to participate in the care of Mrs. Ynes Polalrd for her underlying cardiac condition. I will continue to monitor her along with you as needed while in the hospital. Dr. Ramon Germain will be covering this weekend. Please do not hesitate to call if any questions. FELICIA
[2016-10-20 04:29] VITALS: BP 148/73
[2016-10-20] MEDS: PERCOCET 5MG/325MG TAB PO PRN ×2 (04:47→17:28)
[2016-10-20] MEDS: SLF 3 ML SYR IV SCH ×3 (06:40→20:47)
[2016-10-20] MEDS: LORazepam 1 MG TAB PO PRN ×3 (06:40→17:27)
[2016-10-20] MEDS: LEVOTHYROXINE 0.1 MG TAB (100 MCG) PO SCH (06:40)
[2016-10-20] MEDS: ANUSOL HC 25MG SUPP PR SCH ×3 (06:40→22:48)
[2016-10-20 08:00] VITALS: BP 144/73
[2016-10-20] MEDS: HumaLOG INSULIN (NovoLOG) PER UNIT SC SCH ×4 (08:00→21:00)
[2016-10-20] MEDS: ENOXAPARIN 40 MG/0.4 ML SYRINGE (J1650) SC SCH (08:00)
[2016-10-20] MEDS: QUEtiapine FUMARATE 25 MG TAB PO SCH (08:01)
[2016-10-20] MEDS: POTASSIUM CHLORIDE 10 MEQ SR TABLET PO SCH ×2 (08:02→20:45)
[2016-10-20] MEDS: RAMIPRIL 5 MG CAP PO SCH (08:04)
[2016-10-20] MEDS: PRIMIDONE 125MG PER 1/2 TABLET PO SCH ×2 (08:04→22:48)
[2016-10-20] MEDS: ISOSORBIDE MON. (IMDUR) 30 MG XR TAB PO SCH (08:04)
[2016-10-20] MEDS: ASPIRIN 81 MG ENTERIC TAB PO SCH (08:04)
[2016-10-20] MEDS: LIDOCAINE 5% (LIDODERM) PATCH TD SCH (08:05)
[2016-10-20] MEDS: METOPROLOL TART 50 MG TAB PO SCH ×2 (08:05→20:46)
--- NOTE | 2016-10-20 10:01 | IPNPDOC ---
Subjective Date Seen The patient was seen on 10/20/16. Subjective Chief Complaint/HPI The patient is a 76-year-old female admitted with a reason for visit of Seretonin Syndrome. Events since last encounter no tremors overnight. per nursing, patient developed significant anxiety with worsening of RUE tremor. Tremors completely resolved with Ativan prn. Deemed unsafe for DC home yesterday with PT. Constitutional: Denies: Chills, Fever, Night Sweats Pulmonary: Denies: Cough, Dyspnea Cardiovascular: Denies: Chest Pain, Lt Headedness, Orthopnea, Palpitations, Paroxysmal Noc. Dyspnea Gastrointestinal: Denies: Abdominal Pain, Constipation, Diarrhea, Nausea, Vomiting Neurological: Reports: Incoordination (RLE, RUE) Psych: Reports: Anxiety (relieved with ativan prn) Objective Physical Examination General Exam: Positive: Cooperative Eye Exam: Positive: Conjunctiva & lids normal, Other Eye Symptoms (ocular hyperreflexia) ENT Exam: Positive: Atraumatic, Tongue Midline, Negative: Mucous membr. moist/pink Neck Exam: Positive: Supple, Negative: JVD, Lymphadenopathy, thyromegaly Chest Exam: Positive: Clear to auscultation, Normal air movement Heart Exam: Positive: Normal S1, Normal S2, Tachycardic Telemetry: Positive: Tachycardia Abdomen Exam: Positive: Normal bowel sounds, Soft, Negative: Tenderness Extremity Exam: Positive: Normal pulses, Other (random, involuntary tremulous motions of upper and lower extremities), Negative: Clubbing, Cyanosis, Edema, Swelling Skin Exam: Positive: Nl turgor and temperature Neuro Exam: Positive: Normal Speech, Normal Tone, Other (tongue deviates to right side, RUE and RLE 1-2/5 in strength, answers questions, appears vague) Psych Exam: Positive: Oriented x 3, Other (does not vocalize low mood today.), Negative: Mood NL Assessment /Plan Problems (1) Abnormal involuntary movement Status: Acute Problem Text: 10/20/16: no visible tremor today. Will have HSE completed and decide on DC home. If deemed unsafe, consider SNF and plan for potential rehab. 10/19/16: per Neuro. 10/17/2016: nursing staff to attempt to have medication from Pharmacy delivered to statr today. Unsafe for DC home, re-eval in am. 3/14/17: improved with Change in medication dosing. Continue with neuro. Consider DC home in am if tremors remain fine and stable. 10/15/2016: recurrence of episode. HOLD DC. call placed into on-call Neurology: Dr. Dyson. 10/14 - Tremor resolved, Per Neuro Seroquel 25 mg po BID, anticipate d/c in AM. 10/12 Attending Note: Tremor now significantly improved; no tremor in legs and tremor in arms and head improved somewhat. 10/12 - Neuro following, started on Seroquel 12.5 last night per Neuro, symptoms really are unchanged per pt 10/11 Patient was recently started on risperidone and citalopram - Question adverse drug reaction to risperidone - Question possible serotonin syndrome Other possibilities include underlying Parkinson's disease - Neurology is consulted and will see patient today Prescribed Ativan 1 mg every 6 hours as needed for agitation; has not needed this since last night Prescribe Benadryl Continue patient on home medication - Primidone (2) Diabetes mellitus Status: Chronic Problem Text: Continue sliding scale insulin and FSBS QACHS (3) Hypothyroidism Status: Chronic Problem Text: Continue patient on home medication - Levothyroxine (4) Hypertension Status: Chronic Problem Text: Patient's blood pressure better controlled this afternoon. Continue ramipril. (5) Chronic low back pain Status: Chronic Problem Text: Made worse by tremor and hospital bed; currently receiving oxycodone/acetaminophen Q6H PRN and lidoderm 5% patch. (6) Chest pain Status: Acute Problem Text: EKG: bigeminy CIP pending. Transfer to PCU for monitoring 10/18 1015: CIP negative. repeat q 6 hrs with EKG (7) Right sided weakness Status: Acute Problem Specific Plan: Consult Specialist Problem Text: 10/19/16: MRI/MRA negative. Monitor symptoms. D/W Dr. Dyson. Plan for CT scan brain. Will call [facility] for stroke consult pending CT results. Received Lovenox at [address] [employer] will have increased bleeding risk. 1015: S/p telemed with Campbell Becerra,Dr. Kalyani Ulrich. Patient with low NIH stroke scale. Patient seems to be improving. TPA not indicated at this time. MRI /MRA of brain ordered. MRA carotids ordered. Patient to be transferred to PCU for monitoring to r/o cardiac arrhythmia. Echo is up to date. Neurology will follow patient. (8) Arrhythmia Status: Acute Problem Specific Plan: Consult Specialist Problem Text: Sinus tachycardia with PVCs noted. Cardiology consulted. Consult note unavailable. Plan/VTE VTE Prophylaxis Ordered?: Yes (Lovenox 40 mg subcutaneous daily) Plan/Urinary Catheter Reason for insertion/continuin: Other-document below Plan Diet: Continue Current Activity: Continue Current Diagnostics: Check Labs, Repeat Labs in AM Anticipated Discharge: Home VS, I&O, 24H, [facility] Vital Signs/I&O Vital Signs Date Time Temp Pulse Resp B/P Pulse Ox O2 Delivery O2 Flow Rate FiO2 10/20/16 08:05 89 144/73 10/20/16 08:00 98.1 18 94 Room Air 10/19/16 12:30 I&O- Last 24 Hours up to 6 AM 10/20/16 06:00 Intake Total 1200 ml Output Total 1075 ml Balance 125 ml Laboratory Data 24H LABS Laboratory Tests 2 10/19/16 11:59: Bedside Glucose (Misc Panel) 106 10/19/16 12:11: 10/19/16 16:49: Bedside Glucose (Misc Panel) 130H 10/19/16 20:15: Bedside Glucose (Misc Panel) 130H Sherlyn Moore [employer] Oct 20, 2016 10:01
[2016-10-20 12:00] VITALS: BP 117/60
[2016-10-20 12:18] LABS: BASO % 0.4 % (0.0-1.0); EOS # 0.2 K/mm3 (0.0-0.50); EOS % 3.7 % (0.0-3.0); LARGE UNSTAINED CELL # 0.2 K/mm3 (0.0-0.4); LARGE UNSTAINED CELL % 2.9 % (0.0-4.0); LYMPH # 2.5 K/mm3 (1.5-4.5); LYMPH % 46.3 % (24.0-44.0); MEAN CORPUSCULAR HEMOGLOBIN 31.7 pg (27.0-33.0); MEAN CORPUSCULAR HGB CONC 32.8 g/dl (32.0-36.5); MEAN CORPUSCULAR VOLUME 96.5 fl (80.0-96.0); MONO # 0.4 K/mm3 (0.0-0.8); MONO % 7.3 % (0.0-5.0); NEUTROPHILS % 39.6 % (36.0-66.0); PLATELET COUNT, AUTOMATED 211 k/mm3 (150-450); WHITE BLOOD COUNT 5.1 K/mm3 (4.0-10.0)
[2016-10-20 12:57] LABS: ALBUMIN 3.5 GM/DL (3.2-5.2); ALBUMIN/GLOBULIN RATIO 0.97 (1.00-1.93); ALKALINE PHOSPHATASE 61 U/L (45-117); ALT/SGPT 18 U/L (12-78); ANION GAP 10 MEQ/L (8-16); AST/SGOT 14 U/L (15-37); BILIRUBIN,TOTAL 0.3 MG/DL (0.2-1.0); BLOOD UREA NITROGEN 19 MG/DL (7-18); CALCIUM LEVEL 8.5 MG/DL (8.8-10.2); CARBON DIOXIDE LEVEL 28 MEQ/L (21-32); CHLORIDE LEVEL 101 MEQ/L (98-107); CREATININE FOR GFR 0.94 MG/DL (0.55-1.02); GLOMERULAR FILTRATION RATE > 60.0 (>39); GLUCOSE, FASTING 135 MG/DL (83-110); POTASSIUM SERUM 4.2 MEQ/L (3.5-5.1); SODIUM LEVEL 139 MEQ/L (136-145); TOTAL PROTEIN 7.1 GM/DL (6.4-8.2)
[2016-10-20 17:45] VITALS: BP 128/72
[2016-10-20] MEDS: QUEtiapine FUMARATE 50 MG TAB PO SCH (20:46)
[2016-10-20] MEDS: **NOTE PATIENT COMMENT** MISC XX SCH (20:47)
[2016-10-20 22:00] VITALS: BP 139/93
[2016-10-21 00:06] LABS: IgG P18 AB Absent (.); IgG P23 AB Absent (.); IgG P28 AB Absent (.); IgG P30 AB Absent (.); IgG P41 AB Present (.); IgG P45 AB Absent (.); IgG P58 AB Absent (.); IgG P66 AB Absent (.); IgG P93 AB Absent (.); IgM P39 AB Absent (.); IgM P41 AB Absent (.)
[2016-10-21] MEDS: LEVOTHYROXINE 0.1 MG TAB (100 MCG) PO SCH (05:32)
[2016-10-21] MEDS: ANUSOL HC 25MG SUPP PR SCH ×3 (05:32→21:11)
[2016-10-21] MEDS: SLF 3 ML SYR IV SCH ×3 (05:38→20:27)
[2016-10-21 06:00] VITALS: BP 131/58
[2016-10-21] MEDS: HumaLOG INSULIN (NovoLOG) PER UNIT SC SCH ×4 (07:30→20:52)
[2016-10-21] MEDS: ISOSORBIDE MON. (IMDUR) 30 MG XR TAB PO SCH (08:48)
[2016-10-21] MEDS: PERCOCET 5MG/325MG TAB PO PRN ×2 (08:49→20:26)
[2016-10-21] MEDS: PRIMIDONE 125MG PER 1/2 TABLET PO SCH ×2 (08:49→20:20)
[2016-10-21] MEDS: POTASSIUM CHLORIDE 10 MEQ SR TABLET PO SCH ×2 (08:49→20:20)
[2016-10-21] MEDS: ASPIRIN 81 MG ENTERIC TAB PO SCH (08:50)
[2016-10-21] MEDS: RAMIPRIL 5 MG CAP PO SCH (08:50)
[2016-10-21] MEDS: LIDOCAINE 5% (LIDODERM) PATCH TD SCH (08:50)
[2016-10-21] MEDS: LORazepam 1 MG TAB PO PRN ×2 (08:50→20:20)
[2016-10-21] MEDS: METOPROLOL TART 50 MG TAB PO SCH ×2 (08:50→20:25)
[2016-10-21] MEDS: QUEtiapine FUMARATE 25 MG TAB PO SCH (08:50)
[2016-10-21] MEDS: ENOXAPARIN 40 MG/0.4 ML SYRINGE (J1650) SC SCH (08:51)
--- NOTE | 2016-10-21 10:09 | IPNPDOC ---
Subjective Date Seen The patient was seen on 10/21/16. Subjective Chief Complaint/HPI The patient is a 76-year-old female admitted with a reason for visit of Seretonin Syndrome. Events since last encounter Progressively worsening in physical function. Dragging RLE. 2 assist with a walker to BR. Per nursing: very weak, plans on bedside commode for better safety. patient c/o RLQ pain and difficulty initiating urine stream and feels incomplete emptying of bladder. Constitutional: Denies: Chills, Fever, Night Sweats ENT: Denies: Dysphagia, Ear Pain, Head Aches Pulmonary: Denies: Cough, Dyspnea Cardiovascular: Denies: Chest Pain, Lt Headedness, Orthopnea, Palpitations, Paroxysmal Noc. Dyspnea Gastrointestinal: Reports: Abdominal Pain, Denies: Constipation, Diarrhea, Nausea, Vomiting Genitourinary: Reports: Dysuria, Other Symptoms (difficulty initiating urine stream) Musculoskeletal: Denies: Back Pain, Joint Pain, Muscle Pain, Neck Pain, Spasms Psych: Reports: Mood Normal, Denies: Depression, Memory Issues Objective Physical Examination General Exam: Positive: Cooperative Eye Exam: Positive: Conjunctiva & lids normal, Other Eye Symptoms (ocular hyperreflexia) ENT Exam: Positive: Atraumatic, Tongue Midline, Negative: Mucous membr. moist/pink Neck Exam: Positive: Supple, Negative: JVD, Lymphadenopathy, thyromegaly Chest Exam: Positive: Clear to auscultation, Normal air movement Heart Exam: Positive: Normal S1, Normal S2, Tachycardic Telemetry: Positive: Tachycardia Abdomen Exam: Positive: Normal bowel sounds, Soft, Tenderness (RLQ and right flank pain) Extremity Exam: Positive: Normal pulses, Other (random, involuntary tremulous motions of upper and lower extremities), Negative: Clubbing, Cyanosis, Edema, Swelling Skin Exam: Positive: Nl turgor and temperature Neuro Exam: Positive: Normal Speech, Normal Tone, Other (fine tremor noted. ) Psych Exam: Positive: Oriented x 3, Other (does not vocalize low mood today.), Negative: Mood NL Assessment /Plan Problems (1) Abnormal involuntary movement Status: Acute Problem Text: 10/21/2016: fine tremor today. progressive dysfunction in RLE, dragging Right foot. Plan for potential LTC placement for rehab. 10/20/16: no visible tremor today. Will have HSE completed and decide on DC home. If deemed unsafe, consider SNF and plan for potential rehab. 10/19/16: per Neuro. 10/17/2016: nursing staff to attempt to have medication from Pharmacy delivered to statr today. Unsafe for DC home, re-eval in am. 10/16/16: improved with Change in medication dosing. Continue with neuro. Consider DC home in am if tremors remain fine and stable. 10/15/2016: recurrence of episode. HOLD DC. call placed into on-call Neurology: Dr. Dyson. 10/14 - Tremor resolved, Per Neuro Seroquel 25 mg po BID, anticipate d/c in AM. 10/12 Attending Note: Tremor now significantly improved; no tremor in legs and tremor in arms and head improved somewhat. 10/12 - Neuro following, started on Seroquel 12.5 last night per Neuro, symptoms really are unchanged per pt 10/11 Patient was recently started on risperidone and citalopram - Question adverse drug reaction to risperidone - Question possible serotonin syndrome Other possibilities include underlying Parkinson's disease - Neurology is consulted and will see patient today Prescribed Ativan 1 mg every 6 hours as needed for agitation; has not needed this since last night Prescribe Benadryl Continue patient on home medication - Primidone (2) Diabetes mellitus Status: Chronic Problem Text: Continue sliding scale insulin and FSBS QACHS (3) Hypothyroidism Status: Chronic Problem Text: Continue patient on home medication - Levothyroxine (4) Hypertension Status: Chronic Problem Text: Patient's blood pressure better controlled this afternoon. Continue ramipril. (5) Chronic low back pain Status: Chronic Problem Text: Made worse by tremor and hospital bed; currently receiving oxycodone/acetaminophen Q6H PRN and lidoderm 5% patch. (6) Chest pain Status: Acute Problem Text: EKG: bigeminy CIP pending. Transfer to PCU for monitoring 10/18 1015: CIP negative. repeat q 6 hrs with EKG (7) Right sided weakness Status: Acute Problem Specific Plan: Consult Specialist Problem Text: 10/19/16: MRI/MRA negative. Monitor symptoms. D/W Dr. Dyson. Plan for CT scan brain. Will call [facility] for stroke consult pending CT results. Received Lovenox at 0830 this am. [employer] will have increased bleeding risk. 1015: S/p telemed with Campbell Becerra,Dr. Kalyani Ulrich. Patient with low NIH stroke scale. Patient seems to be improving. TPA not indicated at this time. MRI /MRA of brain ordered. MRA carotids ordered. Patient to be transferred to PCU for monitoring to r/o cardiac arrhythmia. Echo is up to date. Neurology will follow patient. (8) Arrhythmia Status: Acute Problem Specific Plan: Consult Specialist Problem Text: Sinus tachycardia with PVCs noted. Cardiology consulted. Consult note unavailable. (9) Abdominal pain Status: Acute Problem Text: Eval renal US today. Plan/VTE VTE Prophylaxis Ordered?: Yes (Lovenox 40 mg subcutaneous daily) Plan/Urinary Catheter Reason for insertion/continuin: Other-document below Plan Diet: Continue Current Activity: Continue Current Diagnostics: Check Labs, Repeat Labs in AM Anticipated Discharge: Home VS, I&O, 24H, [facility] Vital Signs/I&O Vital Signs Date Time Temp Pulse Resp B/P Pulse Ox O2 Delivery O2 Flow Rate FiO2 10/21/16 08:49 18 10/21/16 08:48 131/58 10/21/16 06:00 97.8 64 96 Room Air 10/19/16 12:30 I&O- Last 24 Hours up to 6 AM 10/21/16 06:00 Intake Total 1195 ml Output Total 200 ml Balance 995 ml Laboratory Data 24H LABS Laboratory Tests 2 10/20/16 11:48: Bedside Glucose (Misc Panel) 149H 10/20/16 12:02: Blood Urea Nitrogen 19H, Creatinine 0.94, Sodium Level 139, Potassium Level 4.2 , Chloride Level 101, Carbon Dioxide Level 28, Calcium Level 8.5L, Aspartate Amino Transf (AST/SGOT) 14L, Alanine Aminotransferase (ALT/SGPT) 18, Alkaline Phosphatase 61, Total Bilirubin 0.3, Total Protein 7.1, Albumin 3.5, Albumin/ Globulin Ratio 0.97L, Anion Gap 10, White Blood Count 5.1, Red Blood Count 3.56L , Hemoglobin 11.3L, Hematocrit 34.4L, Mean Corpuscular Volume 96.5H, Mean Corpuscular Hemoglobin 31.7, Mean Corpuscular Hemoglobin Concent 32.8, Red Cell Distribution Width 13.0, Platelet Count 211, Neutrophils (%) (Auto) 39.6, Lymphocytes (%) (Auto) 46.3H, Monocytes (%) (Auto) 7.3H, Eosinophils (%) (Auto) 3.7H, Basophils (%) (Auto) 0.4, Neutrophils # (Auto) 2.0, Lymphocytes # (Auto) 2.5, Monocytes # (Auto) 0.4, Eosinophils # (Auto) 0.2, Basophils # (Auto) 0.0, Glomerular Filtration Rate > 60.0, Large Unclassified Cells # 0.2, Large Unclassified Cells % 2.9 10/20/16 17:21: Bedside Glucose (Misc Panel) 120H 10/20/16 20:26: Bedside Glucose (Misc Panel) 124H 10/21/16 07:30: Bedside Glucose (Misc Panel) 108 CBC/BMP Laboratory Tests 10/20/16 12:02 Calcium Level 8.5 L, Aspartate Amino Transf (AST/SGOT) 14 L, Alanine Aminotransferase (ALT/SGPT) 18, Alkaline Phosphatase 61, Total Bilirubin 0.3, Total Protein 7.1, Albumin 3.5, Red Blood Count 3.56 L, Mean Corpuscular Volume 96.5 H, Mean Corpuscular Hemoglobin 31.7, Mean Corpuscular Hemoglobin Concent 32.8, Red Cell Distribution Width 13.0, Neutrophils (%) (Auto) 39.6, Lymphocytes (%) (Auto) 46.3 H, Monocytes (%) (Auto) 7.3 H, Eosinophils (%) (Auto ) 3.7 H, Basophils (%) (Auto) 0.4, Neutrophils # (Auto) 2.0, Lymphocytes # (Auto ) 2.5, Monocytes # (Auto) 0.4, Eosinophils # (Auto) 0.2, Basophils # (Auto) 0.0 Sherlyn Moore [facility] Oct 21, 2016 10:09
[2016-10-21 11:08] LABS: ALBUMIN 3.5 GM/DL (3.2-5.2); ALBUMIN/GLOBULIN RATIO 0.92 (1.00-1.93); ALKALINE PHOSPHATASE 64 U/L (45-117); ALT/SGPT 22 U/L (12-78); ANION GAP 11 MEQ/L (8-16); AST/SGOT 21 U/L (15-37); BILIRUBIN,TOTAL 0.2 MG/DL (0.2-1.0); BLOOD UREA NITROGEN 18 MG/DL (7-18); CALCIUM LEVEL 8.7 MG/DL (8.8-10.2); CARBON DIOXIDE LEVEL 28 MEQ/L (21-32); CHLORIDE LEVEL 100 MEQ/L (98-107); CREATININE FOR GFR 0.88 MG/DL (0.55-1.02); GLOMERULAR FILTRATION RATE > 60.0 (>39); GLUCOSE, FASTING 138 MG/DL (83-110); POTASSIUM SERUM 4.2 MEQ/L (3.5-5.1); SODIUM LEVEL 139 MEQ/L (136-145); TOTAL PROTEIN 7.3 GM/DL (6.4-8.2)
--- NOTE | 2016-10-21 12:15 | REP ---
Urinary tract sonography: History: Right lower quadrant pain. History of renal calculi. Comparison is made with CT study of the abdomen and pelvis from July 31, 2016. Findings: Scanning at the level of the urinary bladder shows no abnormality. Emptying ureteral jets are confirmed on color Doppler interrogation of the bladder lumen bilaterally. There is normal renal cortical echogenicity pattern. Renal contours are smooth. No hydronephrosis is seen on either side. The right kidney measures 11.4 x 4.0 x 4.4 cm. Left renal dimensions are 11.2 x 5.1 x 4.7 cm. There is some lobation visible in the left lower pole region. No cyst or mass is appreciated. Impression: No cyst, mass, or calculus. No hydronephrosis seen. No significant abnormality. Signed by Vj Clark MD 10/21/2016 01:14 P
[2016-10-21 14:00] VITALS: BP 115/60
[2016-10-21] MEDS: QUEtiapine FUMARATE 50 MG TAB PO SCH (20:21)
[2016-10-21] MEDS: **NOTE PATIENT COMMENT** MISC XX SCH (20:27)
[2016-10-21 22:00] VITALS: BP 160/70
[2016-10-21] MEDS ORDERED: MORPHINE 2 MG/ML 1ML SYRINGE IV ONE (23:30)
[2016-10-22] MEDS: ACETAMINOPHEN 500 MG TAB PO PRN (00:39)
[2016-10-22] MEDS: PERCOCET 5MG/325MG TAB PO PRN ×3 (02:45→20:05)
[2016-10-22 06:00] VITALS: BP 142/71
[2016-10-22] MEDS: SLF 3 ML SYR IV SCH ×3 (06:14→21:44)
[2016-10-22] MEDS: LEVOTHYROXINE 0.1 MG TAB (100 MCG) PO SCH (06:14)
[2016-10-22 06:15] LABS: MEAN CORPUSCULAR HEMOGLOBIN 31.8 pg (27.0-33.0); MEAN CORPUSCULAR HGB CONC 32.7 g/dl (32.0-36.5); MEAN CORPUSCULAR VOLUME 97.4 fl (80.0-96.0); WHITE BLOOD COUNT 6.5 K/mm3 (4.0-10.0)
[2016-10-22] MEDS: ANUSOL HC 25MG SUPP PR SCH ×3 (06:15→21:42)
--- NOTE | 2016-10-22 08:00 | CR ---
DATE OF CONSULTATION: 10/18/2016 REFERRING PHYSICIAN: Sherlyn Moore NP REASON FOR CONSULTATION: Abnormal EKG, chest pain. HISTORY OF PRESENT ILLNESS: 76-year-old woman well known by the office with a history of hypertension, hyperlipidemia, diabetes mellitus, arthritis, hypothyroidism and history of CVA was admitted on 10/11/2016 with increasing tremor that was thought to be related to side effects of her medications. She is being monitored by neurology and the plan was to discharge home, but this morning, she developed right-sided weakness and she did complain of chest pain. Her EKG revealed isolated premature ventricular contractions (PVCs). Cardiology consult was called. When I saw Mrs. Ynes Pollard this evening she was supine in bed, in no acute distress. It seems that lately she has been having palpitations on and off which she describes as isolated heart beats and she also complained of chest discomfort with activities, relieved with rest. She underwent an echocardiogram as well as a nuclear stress test in June of 2016 and there was no ischemia or infarction, left ventricular ejection fraction (LVEF) was reported to be 64%. There was no significant valvular heart disease. She denies any orthopnea or paroxysmal nocturnal dyspnea (PND), syncope or near-syncope. Lately her neurological condition has deteriorating as well as her arthritis with frequent hospitalizations. There is no report of bleeding. There is no nausea, vomiting, diarrhea, melena or hematemesis. Regarding her tremors and involuntary movements , the immediate plan is to refer to a special neurologic clinic in [place], [place]. PAST SURGICAL HISTORY: Positive for appendectomy, repair of left wrist and tibia fracture, exploratory laparotomy, left breast lumpectomy, right carpal tunnel release surgery, bilateral cataract extraction, and urinary cystoscopy. FAMILY HISTORY: Positive for cancer and heart disease. She recently lost a daughter who is about 50 years old from sudden cardiac . CURRENT MEDICATIONS: - aspirin 81 mg by mouth daily - Seroquel 25 mg by mouth every a.m. - Lovenox 40 mg subcutaneous daily - hydrocortisone cream applied to the chest every 4 hours as needed for itching - Anusol HC suppository 25 mg every 8 hours as needed - Seroquel 50 mg by mouth nightly - primidone 125 mg by mouth twice a day - regular insulin coverage - potassium chloride 10 mEq by mouth twice a day - oxycodone/acetaminophen 5/325 mg tablet, two tablets every 6 hours as needed for severe pain - Tylenol 1000 mg every 6 hours as needed for pain or fever - ramipril 10 mg by mouth daily - lidocaine patch daily - levothyroxine 0.1 mg by mouth daily - ondansetron 4 mg IV every 6 hours for nausea or vomiting - lorazepam 1 mg by mouth every 6 hours as needed for agitation SOCIAL HISTORY: The patient lives with her and there is no report of smoking or ETOH abuse. ALLERGIES: SULFA. ADVANCED DIRECTIVES: The patient is a FULL CODE. PHYSICAL EXAMINATION: The patient is alert and oriented, in no acute distress. Her vital signs when I saw her revealed a blood pressure of 161/80 with a pulse of 94, respiratory rate 18 and her maximum temperature was 97.9 degrees Fahrenheit with an oxygen saturation of 96% on 2 liters nasal cannula. She was in positive fluid balance of about 620 mL on 10/17/2016. Examination of the head is normocephalic, atraumatic. Neck is supple. No jugular venous distention (JVD) or carotid bruits. The lungs were clear bilaterally without any wheezing or crackles. The heart examination revealed normal S1, S2, without gallops. Premature beats heard. The point of maximal impulse (PMI) is not displaced. There is no rub. There is a systolic murmur, grade 1/6 at the base at the heart/aortic valve without any significant radiation. Abdomen is unremarkable. Extremities reveal no acute edema. Neurological examination is negative for focal deficit. LABS: CBC done today revealed a WBC of 5.5, hemoglobin 11.0, hematocrit 32.8, and platelet 190,000. BMP revealed a sodium of 138, potassium 4.5, chloride 102, CO2 27, BUN 18, creatinine 0.77. GFR more than 60, fasting glucose 118, and calcium 8.7. Serum troponin was 0.05 and 0.5, respectively, #1 and #2. Total cholesterol revealed a lipid profile elevated with cholesterol of 239 with a total cholesterol of 464, LDL 158, HDL 50. PT today was 13.7 with an INR of 1.04 and PTT of 25.7. EKG was reviewed and revealed normal sinus rhythm with isolated premature atrial contractions (PACs) and at times was in bigeminy as well as trigeminy and possible prior inferior-posterior infarct. Telemetry was reviewed and revealed normal sinus rhythm with isolated PVCs, in trigeminy. IMPRESSION: 76-year-old woman with above medical problems was thought to be having a left CVA this morning with right-sided weakness that upon talking to her it seemed that her symptoms were related to the same involuntary movements she is having in her right upper extremity. She does complain of chest pain and shortness of breath with activities and her EKG revealed normal sinus rhythm with isolated PVCs. She has a family story of sudden cardiac , she has recently lost her daughter suddenly, who was a 50 year old. She might be having underlying coronary artery disease even though her nuclear stress test last June was negative for ischemia or infarction and her LVEF is normal. Her blood pressure is not quite under control and she was started on small dose of short acting beta debo with metoprolol tartrate and this can be increased as needed in order to better control her blood pressure and also control her angina as well as her premature beats. She also was started on a small dose of long-acting nitrate. She will be monitored. Her serum troponin so far has been negative. I will continue to monitor her along with you while in the hospital and upon discharge as necessary. She may need a cardiac catheterization in the future. It is a pleasure to participate in the care in the Mrs. Ynes Pollard for her underlying cardiac condition. Once again, I will continue to monitor her along with you. She appears to be stable from a cardiac point of view. Please do not hesitate to call if any questions. FELICIA
[2016-10-22] MEDS: ISOSORBIDE MON. (IMDUR) 30 MG XR TAB PO SCH (08:17)
[2016-10-22] MEDS: QUEtiapine FUMARATE 50 MG TAB PO SCH ×2 (08:17→21:44)
[2016-10-22] MEDS: PRIMIDONE 125MG PER 1/2 TABLET PO SCH ×2 (08:17→21:43)
[2016-10-22] MEDS: RAMIPRIL 5 MG CAP PO SCH (08:17)
[2016-10-22] MEDS: POTASSIUM CHLORIDE 10 MEQ SR TABLET PO SCH ×2 (08:17→21:43)
[2016-10-22] MEDS: METOPROLOL TART 50 MG TAB PO SCH ×2 (08:18→21:43)
[2016-10-22] MEDS: ENOXAPARIN 40 MG/0.4 ML SYRINGE (J1650) SC SCH (08:18)
[2016-10-22] MEDS: LIDOCAINE 5% (LIDODERM) PATCH TD SCH (08:19)
[2016-10-22] MEDS: HumaLOG INSULIN (NovoLOG) PER UNIT SC SCH ×4 (08:19→21:34)
[2016-10-22] MEDS: ASPIRIN 81 MG ENTERIC TAB PO SCH (08:19)
--- NOTE | 2016-10-22 09:53 | IPNPDOC ---
Subjective Date Seen The patient was seen on 10/22/16. Subjective Chief Complaint/HPI The patient is a 76-year-old female admitted with a reason for visit of Seretonin Syndrome. Events since last encounter Pt states she is about the same. States some abdominal discomfort about the same. Constitutional: Denies: Chills, Fever Pulmonary: Denies: Dyspnea Cardiovascular: Denies: Chest Pain Gastrointestinal: Reports: Abdominal Pain, Denies: Nausea, Vomiting Objective Physical Examination General Exam: Positive: Cooperative Eye Exam: Positive: Conjunctiva & lids normal, Other Eye Symptoms (ocular hyperreflexia) ENT Exam: Positive: Atraumatic, Tongue Midline, Negative: Mucous membr. moist/pink Neck Exam: Positive: Supple, Negative: JVD, Lymphadenopathy, thyromegaly Chest Exam: Positive: Clear to auscultation, Normal air movement Heart Exam: Positive: Normal S1, Normal S2, Tachycardic Telemetry: Positive: Tachycardia Abdomen Exam: Positive: Normal bowel sounds, Soft, Negative: Tenderness Extremity Exam: Positive: Normal pulses, Other (random, involuntary tremulous motions of upper and lower extremities), Negative: Clubbing, Cyanosis, Edema, Swelling Skin Exam: Positive: Nl turgor and temperature Neuro Exam: Positive: Normal Speech, Normal Tone, Other (fine tremor noted. ) Psych Exam: Positive: Oriented x 3, Other (does not vocalize low mood today.), Negative: Mood NL Assessment /Plan Problems (1) Abnormal involuntary movement Status: Acute Problem Text: 10/22 - Tremor RUE 10/21/2016: fine tremor today. progressive dysfunction in RLE, dragging Right foot. Plan for potential LTC placement for rehab. 10/20/16: no visible tremor today. Will have HSE completed and decide on DC home. If deemed unsafe, consider SNF and plan for potential rehab. 10/19/16: per Neuro. 10/17/2016: nursing staff to attempt to have medication from Pharmacy delivered to statr today. Unsafe for DC home, re-eval in am. 10/16/16: improved with Change in medication dosing. Continue with neuro. Consider DC home in am if tremors remain fine and stable. 10/15/2016: recurrence of episode. HOLD DC. call placed into on-call Neurology: Dr. Dyson. 10/14 - Tremor resolved, Per Neuro Seroquel 25 mg po BID, anticipate d/c in AM. 10/12 Attending Note: Tremor now significantly improved; no tremor in legs and tremor in arms and head improved somewhat. 10/12 - Neuro following, started on Seroquel 12.5 last night per Neuro, symptoms really are unchanged per pt 10/11 Patient was recently started on risperidone and citalopram - Question adverse drug reaction to risperidone - Question possible serotonin syndrome Other possibilities include underlying Parkinson's disease - Neurology is consulted and will see patient today Prescribed Ativan 1 mg every 6 hours as needed for agitation; has not needed this since last night Prescribe Benadryl Continue patient on home medication - Primidone (2) Diabetes mellitus Status: Chronic Problem Text: Continue sliding scale insulin and FSBS QACHS (3) Hypothyroidism Status: Chronic Problem Text: Continue patient on home medication - Levothyroxine (4) Hypertension Status: Chronic Problem Text: Patient's blood pressure better controlled this afternoon. Continue ramipril. (5) Chronic low back pain Status: Chronic Problem Text: Made worse by tremor and hospital bed; currently receiving oxycodone/acetaminophen Q6H PRN and lidoderm 5% patch. (6) Chest pain Status: Acute Problem Text: EKG: bigeminy CIP pending. Transfer to PCU for monitoring 10/18 1015: CIP negative. repeat q 6 hrs with EKG (7) Right sided weakness Status: Acute Problem Specific Plan: Consult Specialist Problem Text: 10/19/16: MRI/MRA negative. Monitor symptoms. D/W Dr. Dyson. Plan for CT scan brain. Will call [facility] for stroke consult pending CT results. Received Lovenox at 0830 this am. [facility] will have increased bleeding risk. 1015: S/p telemed with [facility],Dr. Kalyani Ulrich. Patient with low NIH stroke scale. Patient seems to be improving. TPA not indicated at this time. MRI /MRA of brain ordered. MRA carotids ordered. Patient to be transferred to PCU for monitoring to r/o cardiac arrhythmia. Echo is up to date. Neurology will follow patient. (8) Arrhythmia Status: Acute Problem Specific Plan: Consult Specialist Problem Text: Sinus tachycardia with PVCs noted. Cardiology consulted. Consult note unavailable. (9) Abdominal pain Status: Acute Problem Text: Eval renal US today. Plan/VTE VTE Prophylaxis Ordered?: Yes (Lovenox 40 mg subcutaneous daily) Plan/Urinary Catheter Reason for insertion/continuin: Other-document below Plan Diet: Continue Current Activity: Continue Current Diagnostics: Check Labs, Repeat Labs in AM Anticipated Discharge: Home VS, I&O, 24H, [facility] Vital Signs/I&O Vital Signs Date Time Temp Pulse Resp B/P Pulse Ox O2 Delivery O2 Flow Rate FiO2 10/22/16 08:17 142/71 10/22/16 06:00 97.4 70 18 94 Room Air 10/19/16 12:30 I&O- Last 24 Hours up to 6 AM 10/22/16 06:00 Intake Total 960 ml Output Total 750 ml Balance 210 ml Laboratory Data 24H LABS Laboratory Tests 2 10/21/16 10:15: Blood Urea Nitrogen 18, Creatinine 0.88, Sodium Level 139, Potassium Level 4.2, Chloride Level 100, Carbon Dioxide Level 28, Calcium Level 8.7L, Aspartate Amino Transf (AST/SGOT) 21, Alanine Aminotransferase (ALT/SGPT) 22, Alkaline Phosphatase 64, Total Bilirubin 0.2, Total Protein 7.3, Albumin 3.5, Albumin/ Globulin Ratio 0.92L, Anion Gap 11, Glomerular Filtration Rate > 60.0 10/21/16 11:27: Bedside Glucose (Misc Panel) 118H 10/21/16 16:23: Bedside Glucose (Misc Panel) 107 10/21/16 20:48: Bedside Glucose (Misc Panel) 144H 10/22/16 06:45: Bedside Glucose (Misc Panel) 121H CBC/BMP Laboratory Tests 10/21/16 10:15 Calcium Level 8.7 L, Aspartate Amino Transf (AST/SGOT) 21, Alanine Aminotransferase (ALT/SGPT) 22, Alkaline Phosphatase 64, Total Bilirubin 0.2, Total Protein 7.3, Albumin 3.5 10/22/16 05:33 Red Blood Count 3.67 L, Mean Corpuscular Volume 97.4 H, Mean Corpuscular Hemoglobin 31.8, Mean Corpuscular Hemoglobin Concent 32.7, Red Cell Distribution Width 13.0 Jae Lee RPA-C Oct 22, 2016 09:53
--- NOTE | 2016-10-22 13:59 | CR ---
DATE OF CONSULTATION: 10/22/2016 I was consulted on 10/21/2016 on Ms. Pollard, and the following information was given to me. This patient is a 76-year-old female with numerous neurological symptoms, who has been hospitalized for the last [address]. [address] Yu, she developed right-sided tremors since July. She has had numerous stressors. She had a citalopram 2 days prior to admission started by her PA. In treating her neurologic symptoms, she was also given Risperdal due to her tremor, choreoathetosis, and hemiballismus. She was admitted with uncontrolled movements of all extremities. Her symptoms have changed in the last 10 days. She had had a movement of all extremities, which changed to movement mostly of her right extremities, her arm swinging around. In addition, as discharge was mentioned and rehabilitation, she developed what appeared to be stroke-like symptoms. She has had residual weakness in her right arm and right leg. She also developed following discussion of rehabilitation, some belly pain. She is presently on doses of Seroquel and Ativan. I gained the following history from the patient. This is a 76-year-old white female, who stated her present symptoms as we spoke were that her right arm shakes and is out of control. She demonstrated it for me. Her right arm was demonstrating a tremor ; and then when she releases that right arm, it flies out of control. She also stated that her right leg drags and goes in the opposite direction that she intends it to go. She states it is difficult for her to get in and out of bed; and although she has used walkers erratically due to two previous strokes, she has had some difficulty using a walker. She described her two previous strokes occurring in perhaps 2003 and 2010. She was not quite sure of the dates. Following her 2003 stroke, she had lost upper right arm movement. Her speech was slurred. Her face was droopy, and she developed back pain after hitting her back on a coffee table. Her right arm use was returned following rehabilitation in 2010. Her next stroke resulted in loss of her right arm movement, a little slurring, some loss of sensory perception in her right arm, and that she was not moving as fast or rehabilitating as quickly. In this admission, she states the following. She states that in July during a [employer] dinner, she had some tremor and wild arm movements. She did not seek immediate attention, but when she did, she was treated, she states, by Dr. Dyson with Risperdal. She states Risperdal stopped the movements from flying around and that she felt significantly improved for 9 days. When the symptoms returned, he then placed her on citalopram. This differs from the historical information on the chart concerning her PA placing her on it 2 days prior to admission. She was admitted following uncontrolled movements of her arms and legs flying around. Apparently, Dr. Garvey, who was substituting for Dr. Dyson, saw a video of her with uncontrolled laughing and arms flailing around; and this is why she was admitted. She states when she sleeps, she has none of this movement. PSYCHIATRIC HISTORY: She has never had a psychiatric hospitalization or seen a psychiatrist. Stressors: The patient has five children. In March of 2016, her 42-year-old daughter for unknown reasons shot herself, and the patient has no information on that. Her 42-year-old daughter was but had no children. She has no information from her son-in-law on why that occurred. Her 50-year- old daughter in her sleep in September 2016, and had had an enlarged heart. As mentioned, 2015, the patient did have symptoms of shaking and right arm movement. This occurred prior to any of the medications previously mentioned. In examining the patient's mental state, the patient states her mood is a 2/10. She denies suicidal ideation. Although she denies auditory or visual hallucinations, she states she has not told anybody but is able to smell her daughter who , that being her 42-year-old daughter, who had shot herself. The patient was very tearful throughout the interview and expressed poor self-esteem. She expressed feelings of significant guilt about her first daughter's and has significant ruminations concerning that. The patient states she is frightened of losing her other children, who are far away. The patient seems to confuse some dates but states that she is on medication for memory. 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 She states that after her first daughter , she was reasonably strong, but after the of the second daughter, she has not been able to recover. Her appetite is poor. She states "I put on a good face." PRESENT MEDICATIONS: The patient is on: - Ativan for anxiety as an as needed - Seroquel 50 mg twice a day I read her neurological consult and her cardiology consult. IMPRESSION: This patient has a past history of numerous strokes and has an ongoing cardiac condition. In addition, she is demonstrating a number of symptoms of major depressive illness. RECOMMENDATIONS: The patient's hemiballismus should be treated as per neurology. The patient's tremors should be treated as per neurology. The patient's rather wild arm movements do not seem to be of a neurological nature and may be associated with the patient's depression or, as mentioned by Dr. Yu, could be seen as a conversion disorder. The suggestion, rehabilitation, as mentioned, should most likely still be continued; and I think this patient should be once again treated for major depressive illness, as I did not see any significant symptoms of serotonin syndrome. A choice of antidepressants can be discussed, perhaps renewal of citalopram at a significant and effective dose. PSYCHIATRIC DIAGNOSIS: Major depression. MTDD
[2016-10-22 14:00] VITALS: BP 126/70
[2016-10-22] MEDS: LORazepam 1 MG TAB PO PRN (21:43)
[2016-10-22] MEDS: **NOTE PATIENT COMMENT** MISC XX SCH (21:44)
[2016-10-22 22:00] VITALS: BP 141/67
[2016-10-22] MEDS ORDERED: MORPHINE 2 MG/ML 1ML SYRINGE IV ONE ×2 (23:15)
[2016-10-23] MEDS: PERCOCET 5MG/325MG TAB PO PRN ×3 (04:06→22:01)
[2016-10-23] MEDS: ANUSOL HC 25MG SUPP PR SCH ×3 (05:35→22:01)
[2016-10-23] MEDS: LEVOTHYROXINE 0.1 MG TAB (100 MCG) PO SCH (05:36)
[2016-10-23] MEDS: SLF 3 ML SYR IV SCH ×3 (05:36→22:02)
[2016-10-23 05:56] LABS: BASO % 0.3 % (0.0-1.0); EOS # 0.1 K/mm3 (0.0-0.50); LARGE UNSTAINED CELL # 0.2 K/mm3 (0.0-0.4); LARGE UNSTAINED CELL % 2.7 % (0.0-4.0); LYMPH # 3.2 K/mm3 (1.5-4.5); LYMPH % 55.2 % (24.0-44.0); MEAN CORPUSCULAR HEMOGLOBIN 31.8 pg (27.0-33.0); MEAN CORPUSCULAR HGB CONC 32.9 g/dl (32.0-36.5); MEAN CORPUSCULAR VOLUME 96.6 fl (80.0-96.0); MONO # 0.4 K/mm3 (0.0-0.8); MONO % 7.1 % (0.0-5.0); NEUTROPHILS # 1.8 K/mm3 (1.8-7.7); NEUTROPHILS % 32.8 % (36.0-66.0); PLATELET COUNT, AUTOMATED 226 k/mm3 (150-450); RED CELL DISTRIBUTION WIDTH 12.9 % (11.5-14.5); WHITE BLOOD COUNT 5.5 K/mm3 (4.0-10.0)
[2016-10-23 06:00] VITALS: BP 130/70
[2016-10-23 06:11] LABS: ALBUMIN 3.4 GM/DL (3.2-5.2); ALBUMIN/GLOBULIN RATIO 0.83 (1.00-1.93); ALKALINE PHOSPHATASE 67 U/L (45-117); ALT/SGPT 30 U/L (12-78); ANION GAP 8 MEQ/L (8-16); AST/SGOT 26 U/L (15-37); BILIRUBIN,TOTAL 0.1 MG/DL (0.2-1.0); BLOOD UREA NITROGEN 22 MG/DL (7-18); CALCIUM LEVEL 8.5 MG/DL (8.8-10.2); CARBON DIOXIDE LEVEL 26 MEQ/L (21-32); CHLORIDE LEVEL 104 MEQ/L (98-107); CREATININE FOR GFR 0.81 MG/DL (0.55-1.02); GLOMERULAR FILTRATION RATE > 60.0 (>39); GLUCOSE, FASTING 113 MG/DL (83-110); POTASSIUM SERUM 4.3 MEQ/L (3.5-5.1); SODIUM LEVEL 138 MEQ/L (136-145); TOTAL PROTEIN 7.5 GM/DL (6.4-8.2)
[2016-10-23] MEDS: HumaLOG INSULIN (NovoLOG) PER UNIT SC SCH ×4 (08:42→21:55)
[2016-10-23] MEDS: POTASSIUM CHLORIDE 10 MEQ SR TABLET PO SCH ×2 (08:43→22:01)
[2016-10-23] MEDS: QUEtiapine FUMARATE 50 MG TAB PO SCH ×2 (08:43→22:00)
[2016-10-23] MEDS: PRIMIDONE 125MG PER 1/2 TABLET PO SCH ×2 (08:43→21:59)
[2016-10-23] MEDS: LORazepam 1 MG TAB PO PRN ×2 (08:43→17:48)
[2016-10-23] MEDS: ASPIRIN 81 MG ENTERIC TAB PO SCH (08:44)
[2016-10-23] MEDS: RAMIPRIL 5 MG CAP PO SCH (08:45)
[2016-10-23] MEDS: METOPROLOL TART 50 MG TAB PO SCH ×2 (08:45→22:00)
[2016-10-23] MEDS: ISOSORBIDE MON. (IMDUR) 30 MG XR TAB PO SCH (08:45)
[2016-10-23] MEDS: LIDOCAINE 5% (LIDODERM) PATCH TD SCH (08:46)
[2016-10-23] MEDS: ENOXAPARIN 40 MG/0.4 ML SYRINGE (J1650) SC SCH (08:46)
[2016-10-23] MEDS: CitaloPRAM (CeleXA) 10 MG TABLET PO SCH (09:00)
[2016-10-23 14:00] VITALS: BP 130/63
--- NOTE | 2016-10-23 18:53 | IPNPDOC ---
Subjective Date Seen The patient was seen on 10/23/16. Subjective Chief Complaint/HPI The patient is a 76-year-old female admitted with a reason for visit of Seretonin Syndrome. Events since last encounter Evaluated by psychiatry. Recommending restarting SSRI, such as prev citalopram. Patient does not recall taking his medication in the past. However, she is amenable to starting treatment. She states that PT went well today, and the tremor in her right arm is better. Her only complaint today is abdominal and back pain. She states she has a history of kidney stones, and would like something for the pain. She states that she has previously been given something containing "hydrocodone and Tylenol." Nursing notes that she has Percocet ordered every 6 hours as needed. Constitutional: Denies: Chills, Fever, Malaise Pulmonary: Denies: Cough, Dyspnea Cardiovascular: Denies: Chest Pain Gastrointestinal: Reports: Abdominal Pain, Denies: Constipation, Nausea, Vomiting Genitourinary: Denies: Dysuria Psych: Reports: Depression, Denies: Thoughts of Harming Other, Thoughts of Self Harm Other systems 10 point review systems otherwise negative Objective Physical Examination General Exam: Positive: Cooperative, No Acute Distress Eye Exam: Positive: Conjunctiva & lids normal ENT Exam: Positive: Atraumatic, Negative: Mucous membr. moist/pink Neck Exam: Negative: JVD, Lymphadenopathy, thyromegaly Chest Exam: Positive: Clear to auscultation, Normal air movement Heart Exam: Positive: Normal S1, Normal S2, Rate Normal, Negative: Gallops, Murmurs, Rubs Abdomen Exam: Positive: Normal bowel sounds, Soft, Negative: Tenderness Extremity Exam: Positive: Normal pulses, Other (random, involuntary tremulous motions of upper and lower extremities), Negative: Clubbing, Cyanosis, Edema, Swelling Skin Exam: Positive: Nl turgor and temperature Neuro Exam: Positive: Normal Tone, Other (mild intention tremor of right hand) , Negative: Normal Speech (speech is slowed) Psych Exam: Positive: Oriented x 3, Other (decreased mood, denies suicidal ideations), Negative: Mood NL Assessment /Plan Problems (1) Abnormal involuntary movement Status: Acute Problem Text: 10-23 patient to spitting with rehabilitation and seems to be improving. Not yet safe for discharge. Plan for home with services 10/22 - Tremor RUE 10/21/2016: fine tremor today. progressive dysfunction in RLE, dragging Right foot. Plan for potential LTC placement for rehab. 10/20/16: no visible tremor today. Will have HSE completed and decide on DC home. If deemed unsafe, consider SNF and plan for potential rehab. 10/19/16: per Neuro. 10/17/2016: nursing staff to attempt to have medication from Pharmacy delivered to statr today. Unsafe for DC home, re-eval in am. 10/16/16: improved with Change in medication dosing. Continue with neuro. Consider DC home in am if tremors remain fine and stable. 10/15/2016: recurrence of episode. HOLD DC. call placed into on-call Neurology: Dr. Dyson. 10/14 - Tremor resolved, Per Neuro Seroquel 25 mg po BID, anticipate d/c in AM. 10/12 Attending Note: Tremor now significantly improved; no tremor in legs and tremor in arms and head improved somewhat. 10/12 - Neuro following, started on Seroquel 12.5 last night per Neuro, symptoms really are unchanged per pt 10/11 Patient was recently started on risperidone and citalopram - Question adverse drug reaction to risperidone - Question possible serotonin syndrome Other possibilities include underlying Parkinson's disease - Neurology is consulted and will see patient today Prescribed Ativan 1 mg every 6 hours as needed for agitation; has not needed this since last night Prescribe Benadryl Continue patient on home medication - Primidone (2) Diabetes mellitus Status: Chronic Problem Text: Continue sliding scale insulin and FSBS QACHS (3) Hypothyroidism Status: Chronic Problem Text: Continue patient on home medication - Levothyroxine (4) Hypertension Status: Chronic Problem Text: Blood pressure controlled. -Continue ramipril. (5) Chronic low back pain Status: Chronic Problem Text: Made worse by tremor and hospital bed; currently receiving oxycodone/acetaminophen Q6H PRN and lidoderm 5% patch. Would not recommend escalating any narcotic treatment. (6) Chest pain Status: Acute Problem Text: Previous EKG shows bigeminy. Patient also has bigeminy on exam. (7) Right sided weakness Status: Acute Problem Specific Plan: Consult Specialist Problem Text: Psychiatry consulted. Recommended continued physical therapy. : MRI/MRA negative. Stable 2 mm ophthalmic schwartz aneurysm. -Continue PT (8) Arrhythmia Status: Acute Problem Specific Plan: Consult Specialist Problem Text: Bigeminy on EKG, and on exam. Patient is currently asymmetric. -Cardiology started on low-dose metoprolol tartrate, and long-acting nitrate (9) Abdominal pain Status: Acute Problem Text: Eval renal US showed no stones Plan/VTE VTE Prophylaxis Ordered?: Yes (Lovenox 40 mg subcutaneous daily) Plan/Urinary Catheter Reason for insertion/continuin: Other-document below Plan Diet: Continue Current Activity: Continue Current Diagnostics: Check Labs, Repeat Labs in AM Anticipated Discharge: Home Disposition Discharge planning VS, I&O, 24H, [facility] Vital Signs/I&O Vital Signs Date Time Temp Pulse Resp B/P Pulse Ox O2 Delivery O2 Flow Rate FiO2 10/23/16 15:45 18 Room Air 10/23/16 14:00 98.3 60 130/63 99 10/19/16 12:30 I&O- Last 24 Hours up to 6 AM 10/23/16 06:00 Intake Total 600 ml Output Total 600 ml Balance 0 ml Laboratory Data 24H LABS Laboratory Tests 2 10/22/16 20:39: Bedside Glucose (Misc Panel) 141H 10/23/16 04:19: Urine Amorphous Sediment , Urine Appearance CLOUDYH, Urine Color YELLOW, Urine pH 5.0, Urine Specific [place] 1.019, Urine Protein NEGATIVE, Urine Glucose (UA ) NEGATIVE, Urine Ketones NEGATIVE, Urine Urobilinogen 0.2, Urine Bilirubin NEGATIVE, Urine Leukocyte Esterase 3+H, Urine Bacteria (Auto) 3+H, Urine Blood NEGATIVE, Urine Calcium Carbonate Cryst(Auto) , Urine Calcium Oxalate Cryst ( Auto) , Urine Calcium Phosphate [place] (Auto) , Urine Cellular Casts , Urine Cystine Crystals , Urine Granular Casts (Auto) , Urine Hyaline Casts (Auto) 0, Urine Leucine Crystals , Urine Mucus (Auto) SMALL, Urine Nitrite POSITIVE, Urine Oval Fat Bodies (Auto) , Urine RBC (Auto) 11H, Urine Renal Epithelial Cells , Urine Sperm (Auto) , Urine Squamous Epithelial Cells 1, Urine Transitional Epithelial Cells 1, Urine Trichomonas (Auto) , Urine Triple Phosphate Cryst (Auto) , Urine Tyrosine Crystals , Urine Uric Acid Crystals ( Auto) , Urine WBC (Auto) TNTCH, Urine Waxy Casts (Auto) , Urine Yeast-Like Cells (Auto) 10/23/16 05:04: Blood Urea Nitrogen 22H, Creatinine 0.81, Sodium Level 138, Potassium Level 4.3 , Chloride Level 104, Carbon Dioxide Level 26, Calcium Level 8.5L, Aspartate Amino Transf (AST/SGOT) 26, Alanine Aminotransferase (ALT/SGPT) 30, Alkaline Phosphatase 67, Total Bilirubin 0.1L, Total Protein 7.5, Albumin 3.4, Albumin/ Globulin Ratio 0.83L, Anion Gap 8, White Blood Count 5.5, Red Blood Count 3.57L , Hemoglobin 11.4L, Hematocrit 34.5L, Mean Corpuscular Volume 96.6H, Mean Corpuscular Hemoglobin 31.8, Mean Corpuscular Hemoglobin Concent 32.9, Red Cell Distribution Width 12.9, Platelet Count 226, Neutrophils (%) (Auto) 32.8L, Lymphocytes (%) (Auto) 55.2H, Monocytes (%) (Auto) 7.1H, Eosinophils (%) (Auto) 2.0, Basophils (%) (Auto) 0.3, Neutrophils # (Auto) 1.8, Lymphocytes # (Auto) 3.2, Monocytes # (Auto) 0.4, Eosinophils # (Auto) 0.1, Basophils # (Auto) 0.0, Glomerular Filtration Rate > 60.0, Large Unclassified Cells # 0.2, Large Unclassified Cells % 2.7 10/23/16 11:24: Bedside Glucose (Misc Panel) 137H 10/23/16 16:22: Bedside Glucose (Misc Panel) 121H CBC/BMP Laboratory Tests 10/23/16 05:04 Calcium Level 8.5 L, Aspartate Amino Transf (AST/SGOT) 26, Alanine Aminotransferase (ALT/SGPT) 30, Alkaline Phosphatase 67, Total Bilirubin 0.1 L, Total Protein 7.5, Albumin 3.4, Red Blood Count 3.57 L, Mean Corpuscular Volume 96.6 H, Mean Corpuscular Hemoglobin 31.8, Mean Corpuscular Hemoglobin Concent 32.9, Red Cell Distribution Width 12.9, Neutrophils (%) (Auto) 32.8 L, Lymphocytes (%) (Auto) 55.2 H, Monocytes (%) (Auto) 7.1 H, Eosinophils (%) (Auto ) 2.0, Basophils (%) (Auto) 0.3, Neutrophils # (Auto) 1.8, Lymphocytes # (Auto) 3.2, Monocytes # (Auto) 0.4, Eosinophils # (Auto) 0.1, Basophils # (Auto) 0.0 Microbiology Microbiology 10/23/16 Urine Culture, Received Pending IVELISSE VILLARREAL MD Oct 23, 2016 18:53
[2016-10-23 22:00] VITALS: BP 141/67
[2016-10-23] MEDS: **NOTE PATIENT COMMENT** MISC XX SCH (22:01)
[2016-10-24 06:00] VITALS: BP 157/75
[2016-10-24] MEDS: LEVOTHYROXINE 0.1 MG TAB (100 MCG) PO SCH (06:00)
[2016-10-24] MEDS: LORazepam 1 MG TAB PO PRN (06:00)
[2016-10-24] MEDS: ANUSOL HC 25MG SUPP PR SCH ×3 (06:00→21:22)
[2016-10-24] MEDS: SLF 3 ML SYR IV SCH ×3 (06:01→20:31)
[2016-10-24] MEDS: PERCOCET 5MG/325MG TAB PO PRN ×2 (06:02→21:22)
[2016-10-24] MEDS: HumaLOG INSULIN (NovoLOG) PER UNIT SC SCH ×4 (07:30→21:00)
[2016-10-24] MEDS: QUEtiapine FUMARATE 50 MG TAB PO SCH ×2 (10:07→20:29)
[2016-10-24] MEDS: METOPROLOL TART 50 MG TAB PO SCH ×2 (10:07→20:30)
[2016-10-24] MEDS: ASPIRIN 81 MG ENTERIC TAB PO SCH (10:07)
[2016-10-24] MEDS: PRIMIDONE 125MG PER 1/2 TABLET PO SCH ×2 (10:07→20:29)
[2016-10-24] MEDS: POTASSIUM CHLORIDE 10 MEQ SR TABLET PO SCH ×2 (10:08→20:30)
[2016-10-24] MEDS: CitaloPRAM (CeleXA) 10 MG TABLET PO SCH (10:08)
[2016-10-24] MEDS: RAMIPRIL 5 MG CAP PO SCH (10:08)
[2016-10-24] MEDS: LIDOCAINE 5% (LIDODERM) PATCH TD SCH (10:09)
[2016-10-24] MEDS: ENOXAPARIN 40 MG/0.4 ML SYRINGE (J1650) SC SCH (10:09)
[2016-10-24] MEDS: ISOSORBIDE MON. (IMDUR) 30 MG XR TAB PO SCH (10:09)
[2016-10-24 14:00] VITALS: BP 110/56
[2016-10-24] MEDS: **NOTE PATIENT COMMENT** MISC XX SCH (20:31)
[2016-10-24 22:00] VITALS: BP 111/58
--- NOTE | 2016-10-25 00:16 | IPNPDOC ---
Subjective Date Seen The patient was seen on 10/25/16. Subjective Chief Complaint/HPI The patient is a 76-year-old female admitted with a reason for visit of movement disorder. Events since last encounter Tremor improving today. Patient is doing a bit better with PT, though she seems to be transitioning to wheelchair more than ambulating. Reports that she moved her bowels well. Notes that her diet has ground meat, and wonders if her diet might be changed. Constitutional: Denies: Chills, Fever Pulmonary: Denies: Cough, Dyspnea Cardiovascular: Denies: Chest Pain, Palpitations Gastrointestinal: Reports: Abdominal Pain, Denies: Nausea, Vomiting Objective Physical Examination General Exam: Positive: Cooperative, No Acute Distress Eye Exam: Positive: Conjunctiva & lids normal ENT Exam: Positive: Atraumatic, Negative: Mucous membr. moist/pink Neck Exam: Negative: JVD, Lymphadenopathy, thyromegaly Chest Exam: Positive: Clear to auscultation, Normal air movement Heart Exam: Positive: Normal S1, Normal S2, Rate Normal, Negative: Gallops, Murmurs, Rubs Abdomen Exam: Positive: Normal bowel sounds, Soft, Negative: Tenderness Extremity Exam: Positive: Normal pulses, Other, Negative: Clubbing, Cyanosis, Edema, Swelling Skin Exam: Positive: Nl turgor and temperature Neuro Exam: Positive: Normal Tone, Other (mild intention tremor of right hand) , Negative: Normal Speech (speech is slowed) Psych Exam: Positive: Oriented x 3, Other (decreased mood, denies suicidal ideations), Negative: Mood NL Assessment /Plan Problems (1) Abnormal involuntary movement Status: Acute Problem Text: 10/24 --tremor RUE. Making progress with rehab, PT plans home with services at this time. If her daughter can, at least temporarily, move in with her mother, it would facilitate this. She may still require inpatient rehab. 10-23 patient to spitting with rehabilitation and seems to be improving. Not yet safe for discharge. Plan for home with services 10/22 - Tremor RUE 10/21/2016: fine tremor today. progressive dysfunction in RLE, dragging Right foot. Plan for potential LTC placement for rehab. 10/20/16: no visible tremor today. Will have HSE completed and decide on DC home. If deemed unsafe, consider SNF and plan for potential rehab. 10/19/16: per Neuro. 10/17/2016: nursing staff to attempt to have medication from Pharmacy delivered to statr today. Unsafe for DC home, re-eval in am. 10/16/16: improved with Change in medication dosing. Continue with neuro. Consider DC home in am if tremors remain fine and stable. 10/15/2016: recurrence of episode. HOLD DC. call placed into on-call Neurology: Dr. Dyson. 10/14 - Tremor resolved, Per Neuro Seroquel 25 mg po BID, anticipate d/c in AM. 10/12 Attending Note: Tremor now significantly improved; no tremor in legs and tremor in arms and head improved somewhat. 10/12 - Neuro following, started on Seroquel 12.5 last night per Neuro, symptoms really are unchanged per pt 10/11 Patient was recently started on risperidone and citalopram - Question adverse drug reaction to risperidone - Question possible serotonin syndrome Other possibilities include underlying Parkinson's disease - Neurology is consulted and will see patient today Prescribed Ativan 1 mg every 6 hours as needed for agitation; has not needed this since last night Prescribe Benadryl Continue patient on home medication - Primidone (2) Diabetes mellitus Status: Chronic Problem Text: Continue sliding scale insulin and FSBS QACHS (3) Hypothyroidism Status: Chronic Problem Text: Continue patient on home medication - Levothyroxine (4) Hypertension Status: Chronic Problem Text: Blood pressure controlled. -Continue ramipril. (5) Chronic low back pain Status: Chronic Problem Text: Made worse by tremor and hospital bed; currently receiving oxycodone/acetaminophen Q6H PRN and lidoderm 5% patch. Would not recommend escalating any narcotic treatment. (6) Chest pain Status: Resolved Problem Text: Previous EKG shows bigeminy. Patient also has bigeminy on exam. (7) Right sided weakness Status: Acute Problem Specific Plan: Consult Specialist Problem Text: Psychiatry consulted. Recommended continued physical therapy. 10/19/16: MRI/MRA negative. Stable 2 mm ophthalmic schwartz aneurysm. -Continue PT (8) Arrhythmia Status: Acute Problem Specific Plan: Consult Specialist Problem Text: Bigeminy on EKG, and on exam. Patient is currently asymmetric. -Cardiology started on low-dose metoprolol tartrate, and long-acting nitrate (9) Abdominal pain Status: Acute Problem Text: Eval renal US showed no stones Plan/VTE VTE Prophylaxis Ordered?: Yes (Lovenox 40 mg subcutaneous daily) Plan/Urinary Catheter Reason for insertion/continuin: Other-document below Plan Diet: Continue Current Activity: Continue Current Diagnostics: Check Labs, Repeat Labs in AM Anticipated Discharge: Home VS, I&O, 24H, [facility] Vital Signs/I&O Vital Signs Date Time Temp Pulse Resp B/P Pulse Ox O2 Delivery O2 Flow Rate FiO2 10/24/16 22:00 98.9 89 16 111/58 95 Room Air 10/19/16 12:30 I&O- Last 24 Hours up to 6 AM 10/25/16 06:00 Intake Total 600 ml Output Total 700 ml Balance -100 ml Laboratory Data 24H LABS Laboratory Tests 2 10/24/16 07:03: Bedside Glucose (Misc Panel) 113H 10/24/16 11:52: Bedside Glucose (Misc Panel) 112H 10/24/16 17:05: Bedside Glucose (Misc Panel) 135H 10/24/16 20:14: Bedside Glucose (Misc Panel) 159H Microbiology Microbiology 10/23/16 Urine Culture, Received Pending AFSANEH REILLY DO Oct 25, 2016 00:16
[2016-10-25] MEDS: ANUSOL HC 25MG SUPP PR SCH ×3 (05:39→21:42)
[2016-10-25] MEDS: LEVOTHYROXINE 0.1 MG TAB (100 MCG) PO SCH (05:39)
[2016-10-25] MEDS: SLF 3 ML SYR IV SCH ×3 (05:40→20:19)
[2016-10-25 06:00] VITALS: BP 125/56
[2016-10-25 06:14] LABS: BASO % 0.2 % (0.0-1.0); EOS # 0.2 K/mm3 (0.0-0.50); EOS % 2.9 % (0.0-3.0); LARGE UNSTAINED CELL # 0.2 K/mm3 (0.0-0.4); LARGE UNSTAINED CELL % 3.1 % (0.0-4.0); LYMPH # 3.2 K/mm3 (1.5-4.5); LYMPH % 56.4 % (24.0-44.0); MEAN CORPUSCULAR HEMOGLOBIN 31.2 pg (27.0-33.0); MEAN CORPUSCULAR HGB CONC 32.9 g/dl (32.0-36.5); MEAN CORPUSCULAR VOLUME 95.1 fl (80.0-96.0); MONO # 0.4 K/mm3 (0.0-0.8); MONO % 6.9 % (0.0-5.0); NEUTROPHILS # 1.7 K/mm3 (1.8-7.7); NEUTROPHILS % 30.5 % (36.0-66.0); PLATELET COUNT, AUTOMATED 233 k/mm3 (150-450); RED CELL DISTRIBUTION WIDTH 12.8 % (11.5-14.5); WHITE BLOOD COUNT 5.6 K/mm3 (4.0-10.0)
[2016-10-25 06:38] LABS: ALBUMIN 3.5 GM/DL (3.2-5.2); ALKALINE PHOSPHATASE 61 U/L (45-117); ALT/SGPT 25 U/L (12-78); ANION GAP 6 MEQ/L (8-16); AST/SGOT 17 U/L (15-37); BILIRUBIN,TOTAL 0.2 MG/DL (0.2-1.0); BLOOD UREA NITROGEN 23 MG/DL (7-18); CALCIUM LEVEL 8.6 MG/DL (8.8-10.2); CARBON DIOXIDE LEVEL 29 MEQ/L (21-32); CHLORIDE LEVEL 104 MEQ/L (98-107); CREATININE FOR GFR 0.77 MG/DL (0.55-1.02); GLOMERULAR FILTRATION RATE > 60.0 (>39); GLUCOSE, FASTING 101 MG/DL (83-110); POTASSIUM SERUM 4.3 MEQ/L (3.5-5.1); SODIUM LEVEL 139 MEQ/L (136-145); TOTAL PROTEIN 7.4 GM/DL (6.4-8.2)
[2016-10-25] MEDS: HumaLOG INSULIN (NovoLOG) PER UNIT SC SCH ×4 (08:50→21:00)
[2016-10-25] MEDS: ENOXAPARIN 40 MG/0.4 ML SYRINGE (J1650) SC SCH (08:51)
[2016-10-25] MEDS: PRIMIDONE 125MG PER 1/2 TABLET PO SCH ×2 (08:51→20:17)
[2016-10-25] MEDS: METOPROLOL TART 50 MG TAB PO SCH ×2 (08:52→20:19)
[2016-10-25] MEDS: CitaloPRAM (CeleXA) 10 MG TABLET PO SCH (08:53)
[2016-10-25] MEDS: POTASSIUM CHLORIDE 10 MEQ SR TABLET PO SCH ×2 (08:53→20:18)
[2016-10-25] MEDS: ASPIRIN 81 MG ENTERIC TAB PO SCH (08:54)
[2016-10-25] MEDS: QUEtiapine FUMARATE 50 MG TAB PO SCH ×2 (08:54→20:18)
[2016-10-25] MEDS: ISOSORBIDE MON. (IMDUR) 30 MG XR TAB PO SCH (08:54)
[2016-10-25] MEDS: RAMIPRIL 5 MG CAP PO SCH (08:54)
[2016-10-25] MEDS: LIDOCAINE 5% (LIDODERM) PATCH TD SCH (08:55)
[2016-10-25] MEDS: PERCOCET 5MG/325MG TAB PO PRN ×2 (10:26→20:18)
[2016-10-25] MEDS: **NOTE PATIENT COMMENT** MISC XX SCH (20:19)
--- NOTE | 2016-10-26 02:57 | IPNPDOC ---
Subjective Date Seen The patient was seen on 10/25/16. Subjective Chief Complaint/HPI The patient is a 76-year-old female admitted with a reason for visit of movement disorder. Events since last encounter States she did well with PT today, not just navigating in a wheelchair but walking. She states that she felt good walking, and thinks that she could have walked even further. She has also been ambulating to the bathroom. Nursing staff agree that she has been doing well, and will try to do some walking with her too. Constitutional: Denies: Chills, Fever Skin: Denies: Rash Pulmonary: Denies: Cough, Dyspnea Cardiovascular: Denies: Chest Pain Gastrointestinal: Denies: Constipation, Diarrhea, Nausea, Vomiting Objective Physical Examination General Exam: Positive: Cooperative, No Acute Distress Eye Exam: Positive: Conjunctiva & lids normal ENT Exam: Positive: Atraumatic, Negative: Mucous membr. moist/pink Neck Exam: Negative: JVD, Lymphadenopathy, thyromegaly Chest Exam: Positive: Clear to auscultation, Normal air movement Heart Exam: Positive: Normal S1, Normal S2, Rate Normal, Negative: Gallops, Murmurs, Rubs Abdomen Exam: Positive: Normal bowel sounds, Soft, Negative: Tenderness Extremity Exam: Positive: Normal pulses, Other, Negative: Clubbing, Cyanosis, Edema, Swelling Skin Exam: Positive: Nl turgor and temperature Neuro Exam: Positive: Normal Tone, Other (mild intention tremor of right hand) , Negative: Normal Speech (speech is slowed) Psych Exam: Positive: Oriented x 3, Other (decreased mood, denies suicidal ideations), Negative: Mood NL Assessment /Plan Problems (1) Abnormal involuntary movement Status: Acute Problem Text: 10/25 -- tremor RUE. improved ambulation today suggests better likelihood of DC to home. 10/24 --tremor RUE. Making progress with rehab, PT plans home with services at this time. If her daughter can, at least temporarily, move in with the patient , it would facilitate this. She may still require inpatient rehab. 10-23 patient to spitting with rehabilitation and seems to be improving. Not yet safe for discharge. Plan for home with services 10/22 - Tremor RUE 10/21/2016: fine tremor today. progressive dysfunction in RLE, dragging Right foot. Plan for potential LTC placement for rehab. 10/20/16: no visible tremor today. Will have HSE completed and decide on DC home. If deemed unsafe, consider SNF and plan for potential rehab. 10/19/16: per Neuro. 10/17/2016: nursing staff to attempt to have medication from Pharmacy delivered to statr today. Unsafe for DC home, re-eval in am. 10/16/16: improved with Change in medication dosing. Continue with neuro. Consider DC home in am if tremors remain fine and stable. 10/15/2016: recurrence of episode. HOLD DC. call placed into on-call Neurology: Dr. Dyson. 10/14 - Tremor resolved, Per Neuro Seroquel 25 mg po BID, anticipate d/c in AM. 10/12 Attending Note: Tremor now significantly improved; no tremor in legs and tremor in arms and head improved somewhat. 10/12 - Neuro following, started on Seroquel 12.5 last night per Neuro, symptoms really are unchanged per pt 10/11 Patient was recently started on risperidone and citalopram - Question adverse drug reaction to risperidone - Question possible serotonin syndrome Other possibilities include underlying Parkinson's disease - Neurology is consulted and will see patient today Prescribed Ativan 1 mg every 6 hours as needed for agitation; has not needed this since last night Prescribe Benadryl Continue patient on home medication - Primidone (2) Diabetes mellitus Status: Chronic Problem Text: Continue sliding scale insulin and FSBS QACHS (3) Hypothyroidism Status: Chronic Problem Text: Continue patient on home medication - Levothyroxine (4) Hypertension Status: Chronic Problem Text: Blood pressure controlled. -Continue ramipril. (5) Chronic low back pain Status: Chronic Problem Text: Made worse by tremor and hospital bed; currently receiving oxycodone/acetaminophen Q6H PRN and lidoderm 5% patch. Would not recommend escalating any narcotic treatment. (6) Chest pain Status: Resolved Problem Text: Previous EKG shows bigeminy. Patient also has bigeminy on exam. (7) Right sided weakness Status: Acute Problem Specific Plan: Consult Specialist Problem Text: Psychiatry consulted. Recommended continued physical therapy. 10/19/16: MRI/MRA negative. Stable 2 mm ophthalmic schwartz aneurysm. -Continue PT (8) Arrhythmia Status: Acute Problem Specific Plan: Consult Specialist Problem Text: Bigeminy on EKG, and on exam. Patient is currently asymmetric. -Cardiology started on low-dose metoprolol tartrate, and long-acting nitrate (9) Abdominal pain Status: Acute Problem Text: Eval renal US showed no stones Plan/VTE VTE Prophylaxis Ordered?: Yes (Lovenox 40 mg subcutaneous daily) Plan/Urinary Catheter Reason for insertion/continuin: Other-document below Plan Diet: Continue Current Activity: Continue Current Diagnostics: Check Labs, Repeat Labs in AM Anticipated Discharge: Home VS, I&O, 24H, [facility] Vital Signs/I&O Vital Signs Date Time Temp Pulse Resp B/P Pulse Ox O2 Delivery O2 Flow Rate FiO2 10/25/16 20:48 18 94 Room Air 10/25/16 20:19 84 130/80 10/25/16 06:00 97.1 I&O- Last 24 Hours up to 6 AM 10/26/16 06:00 Intake Total 895 ml Output Total 400 ml Balance 495 ml Laboratory Data 24H LABS Laboratory Tests 2 10/25/16 05:52: Blood Urea Nitrogen 23H, Creatinine 0.77, Sodium Level 139, Potassium Level 4.3 , Chloride Level 104, Carbon Dioxide Level 29, Calcium Level 8.6L, Aspartate Amino Transf (AST/SGOT) 17, Alanine Aminotransferase (ALT/SGPT) 25, Alkaline Phosphatase 61, Total Bilirubin 0.2#, Total Protein 7.4, Albumin 3.5, Albumin/ Globulin Ratio 0.90L, Anion Gap 6L, White Blood Count 5.6, Red Blood Count 3.58L , Hemoglobin 11.2L, Hematocrit 34.1L, Mean Corpuscular Volume 95.1, Mean Corpuscular Hemoglobin 31.2, Mean Corpuscular Hemoglobin Concent 32.9, Red Cell Distribution Width 12.8, Platelet Count 233, Neutrophils (%) (Auto) 30.5L, Lymphocytes (%) (Auto) 56.4H, Monocytes (%) (Auto) 6.9H, Eosinophils (%) (Auto) 2.9, Basophils (%) (Auto) 0.2, Neutrophils # (Auto) 1.7L, Lymphocytes # (Auto) 3.2, Monocytes # (Auto) 0.4, Eosinophils # (Auto) 0.2, Basophils # (Auto) 0.0, Glomerular Filtration Rate > 60.0, Large Unclassified Cells # 0.2, Large Unclassified Cells % 3.1 10/25/16 11:40: Bedside Glucose (Misc Panel) 113H 10/25/16 17:12: Bedside Glucose (Misc Panel) 136H CBC/BMP Laboratory Tests 10/25/16 05:52 Calcium Level 8.6 L, Aspartate Amino Transf (AST/SGOT) 17, Alanine Aminotransferase (ALT/SGPT) 25, Alkaline Phosphatase 61, Total Bilirubin 0.2 #, Total Protein 7.4, Albumin 3.5, Red Blood Count 3.58 L, Mean Corpuscular Volume 95.1, Mean Corpuscular Hemoglobin 31.2, Mean Corpuscular Hemoglobin Concent 32.9 , Red Cell Distribution Width 12.8, Neutrophils (%) (Auto) 30.5 L, Lymphocytes ( %) (Auto) 56.4 H, Monocytes (%) (Auto) 6.9 H, Eosinophils (%) (Auto) 2.9, Basophils (%) (Auto) 0.2, Neutrophils # (Auto) 1.7 L, Lymphocytes # (Auto) 3.2, Monocytes # (Auto) 0.4, Eosinophils # (Auto) 0.2, Basophils # (Auto) 0.0 Microbiology Microbiology 10/23/16 Urine Culture - Final, Complete Klebsiella Oxytoca AFSANEH REILLY DO Oct 26, 2016 02:57
[2016-10-26] MEDS: PERCOCET 5MG/325MG TAB PO PRN ×2 (03:18→21:37)
[2016-10-26] MEDS: ANUSOL HC 25MG SUPP PR SCH ×3 (05:53→21:38)
[2016-10-26] MEDS: LEVOTHYROXINE 0.1 MG TAB (100 MCG) PO SCH (05:53)
[2016-10-26] MEDS: SLF 3 ML SYR IV SCH ×3 (05:54→21:39)
[2016-10-26 06:00] VITALS: BP 135/71
[2016-10-26 06:35] LABS: BASO % 0.4 % (0.0-1.0); EOS # 0.2 K/mm3 (0.0-0.50); EOS % 3.4 % (0.0-3.0); LARGE UNSTAINED CELL # 0.1 K/mm3 (0.0-0.4); LARGE UNSTAINED CELL % 2.2 % (0.0-4.0); LYMPH # 2.8 K/mm3 (1.5-4.5); LYMPH % 50.5 % (24.0-44.0); MEAN CORPUSCULAR HEMOGLOBIN 31.2 pg (27.0-33.0); MEAN CORPUSCULAR HGB CONC 32.4 g/dl (32.0-36.5); MEAN CORPUSCULAR VOLUME 96.4 fl (80.0-96.0); MONO # 0.4 K/mm3 (0.0-0.8); MONO % 7.2 % (0.0-5.0); NEUTROPHILS # 1.9 K/mm3 (1.8-7.7); NEUTROPHILS % 36.3 % (36.0-66.0); PLATELET COUNT, AUTOMATED 237 k/mm3 (150-450); RED CELL DISTRIBUTION WIDTH 12.9 % (11.5-14.5); WHITE BLOOD COUNT 5.3 K/mm3 (4.0-10.0)
[2016-10-26 06:57] LABS: ALBUMIN 3.3 GM/DL (3.2-5.2); ALBUMIN/GLOBULIN RATIO 0.87 (1.00-1.93); ALKALINE PHOSPHATASE 64 U/L (45-117); ALT/SGPT 23 U/L (12-78); ANION GAP 8 MEQ/L (8-16); AST/SGOT 13 U/L (15-37); BILIRUBIN,TOTAL < 0.1 MG/DL (0.2-1.0); BLOOD UREA NITROGEN 20 MG/DL (7-18); CALCIUM LEVEL 8.5 MG/DL (8.8-10.2); CARBON DIOXIDE LEVEL 27 MEQ/L (21-32); CHLORIDE LEVEL 106 MEQ/L (98-107); CREATININE FOR GFR 0.75 MG/DL (0.55-1.02); GLOMERULAR FILTRATION RATE > 60.0 (>39); GLUCOSE, FASTING 117 MG/DL (83-110); POTASSIUM SERUM 4.5 MEQ/L (3.5-5.1); SODIUM LEVEL 141 MEQ/L (136-145); TOTAL PROTEIN 7.1 GM/DL (6.4-8.2)
[2016-10-26] MEDS: HumaLOG INSULIN (NovoLOG) PER UNIT SC SCH ×4 (09:49→21:28)
[2016-10-26] MEDS: ENOXAPARIN 40 MG/0.4 ML SYRINGE (J1650) SC SCH (09:51)
[2016-10-26] MEDS: POTASSIUM CHLORIDE 10 MEQ SR TABLET PO SCH ×2 (09:51→21:37)
[2016-10-26] MEDS: QUEtiapine FUMARATE 50 MG TAB PO SCH ×2 (09:52→21:38)
[2016-10-26] MEDS: CitaloPRAM (CeleXA) 10 MG TABLET PO SCH (09:52)
[2016-10-26] MEDS: ASPIRIN 81 MG ENTERIC TAB PO SCH (09:52)
[2016-10-26] MEDS: LIDOCAINE 5% (LIDODERM) PATCH TD SCH (09:55)
[2016-10-26] MEDS: RAMIPRIL 5 MG CAP PO SCH (09:55)
[2016-10-26] MEDS: ISOSORBIDE MON. (IMDUR) 30 MG XR TAB PO SCH (09:56)
[2016-10-26] MEDS: METOPROLOL TART 50 MG TAB PO SCH ×2 (09:56→21:38)
[2016-10-26] MEDS: PRIMIDONE 125MG PER 1/2 TABLET PO SCH ×2 (09:57→21:36)
[2016-10-26 14:00] VITALS: BP 128/64
--- NOTE | 2016-10-26 16:36 | IPN ---
DATE: 10/26/2016 Ynes is getting out of bed and progressing with physical therapy. They think her strength is improving. She feels the best today that she has "in a long time." PHYSICAL EXAMINATION: Afebrile, blood pressure 120/80. Lungs clear. Heart regular rhythm. Abdomen soft, nontender. She is working with physical therapist so I did not do a further exam. LABORATORY DATA: White count 5.3, hemoglobin 10.9, platelets 237. Sodium 141, potassium 4.5, BUN 20, creatinine 0.7, glucose 117. I note that she had a urine culture that is positive for Klebsiella 100,000 colonies. IMPRESSION: 1. Klebsiella urinary tract infection (UTI). Will start her on an oral antibiotic, Keflex, for this. 2. Neurologic event, questionable serotonin syndrome/abnormal movement. Waiting for neurology to reevaluate her. She is progressing in physical therapy. She will have apparently consideration of acute rehabilitation for which an assessment is planned on Saturday. The rest of her medical problems are stable.
[2016-10-26] MEDS: CEPHALEXIN 500 MG CAP PO SCH (21:36)
[2016-10-26] MEDS: **NOTE PATIENT COMMENT** MISC XX SCH (21:38)
[2016-10-26 22:00] VITALS: BP 145/65
[2016-10-27 05:59] LABS: BASO % 0.4 % (0.0-1.0); EOS # 0.1 K/mm3 (0.0-0.50); EOS % 2.2 % (0.0-3.0); LARGE UNSTAINED CELL # 0.2 K/mm3 (0.0-0.4); LARGE UNSTAINED CELL % 3.1 % (0.0-4.0); LYMPH # 3.4 K/mm3 (1.5-4.5); LYMPH % 50.9 % (24.0-44.0); MEAN CORPUSCULAR HEMOGLOBIN 32.4 pg (27.0-33.0); MEAN CORPUSCULAR HGB CONC 32.8 g/dl (32.0-36.5); MEAN CORPUSCULAR VOLUME 98.6 fl (80.0-96.0); MONO # 0.4 K/mm3 (0.0-0.8); MONO % 6.6 % (0.0-5.0); NEUTROPHILS # 2.3 K/mm3 (1.8-7.7); NEUTROPHILS % 36.8 % (36.0-66.0); PLATELET COUNT, AUTOMATED 246 k/mm3 (150-450); RED CELL DISTRIBUTION WIDTH 12.9 % (11.5-14.5); WHITE BLOOD COUNT 6.2 K/mm3 (4.0-10.0)
[2016-10-27 06:00] VITALS: BP 110/54
[2016-10-27] MEDS: SLF 3 ML SYR IV SCH ×3 (06:24→21:45)
[2016-10-27] MEDS: ANUSOL HC 25MG SUPP PR SCH ×3 (06:24→21:43)
[2016-10-27] MEDS: LEVOTHYROXINE 0.1 MG TAB (100 MCG) PO SCH (06:24)
[2016-10-27] MEDS: PERCOCET 5MG/325MG TAB PO PRN ×2 (06:24→21:44)
[2016-10-27 06:31] LABS: ALBUMIN 3.2 GM/DL (3.2-5.2); ALBUMIN/GLOBULIN RATIO 0.89 (1.00-1.93); ALKALINE PHOSPHATASE 66 U/L (45-117); ALT/SGPT 21 U/L (12-78); ANION GAP 4 MEQ/L (8-16); AST/SGOT 10 U/L (15-37); BILIRUBIN,TOTAL < 0.1 MG/DL (0.2-1.0); BLOOD UREA NITROGEN 21 MG/DL (7-18); CALCIUM LEVEL 8.4 MG/DL (8.8-10.2); CARBON DIOXIDE LEVEL 28 MEQ/L (21-32); CHLORIDE LEVEL 109 MEQ/L (98-107); CREATININE FOR GFR 0.73 MG/DL (0.55-1.02); GLOMERULAR FILTRATION RATE > 60.0 (>39); GLUCOSE, FASTING 111 MG/DL (83-110); POTASSIUM SERUM 4.4 MEQ/L (3.5-5.1); SODIUM LEVEL 141 MEQ/L (136-145); TOTAL PROTEIN 6.8 GM/DL (6.4-8.2)
[2016-10-27] MEDS: LIDOCAINE 5% (LIDODERM) PATCH TD SCH (08:04)
[2016-10-27] MEDS: ENOXAPARIN 40 MG/0.4 ML SYRINGE (J1650) SC SCH (08:04)
[2016-10-27] MEDS: HumaLOG INSULIN (NovoLOG) PER UNIT SC SCH ×4 (08:04→21:31)
[2016-10-27] MEDS: PRIMIDONE 125MG PER 1/2 TABLET PO SCH ×2 (08:05→21:43)
[2016-10-27] MEDS: QUEtiapine FUMARATE 50 MG TAB PO SCH ×2 (08:08→21:45)
[2016-10-27] MEDS: RAMIPRIL 5 MG CAP PO SCH (08:08)
[2016-10-27] MEDS: METOPROLOL TART 50 MG TAB PO SCH ×2 (08:08→21:45)
[2016-10-27] MEDS: CEPHALEXIN 500 MG CAP PO SCH ×2 (08:08→21:43)
[2016-10-27] MEDS: ISOSORBIDE MON. (IMDUR) 30 MG XR TAB PO SCH (08:09)
[2016-10-27] MEDS: ASPIRIN 81 MG ENTERIC TAB PO SCH (08:09)
[2016-10-27] MEDS: CitaloPRAM (CeleXA) 10 MG TABLET PO SCH (08:09)
[2016-10-27] MEDS: POTASSIUM CHLORIDE 10 MEQ SR TABLET PO SCH ×2 (08:09→21:45)
--- NOTE | 2016-10-27 13:30 | IPN ---
DATE: 10/27/2016 Ynes is seen [facility]. No real change from yesterday. She feels that she is getting stronger and is not sure that she wants to go to physical medicine and rehabilitation (PM and R) now. She is willing to stay through the weekend. PHYSICAL EXAMINATION: She still has a tremor; it is more the right hand than the left. She is alert, conversant, in no distress. Lungs are clear. Heart: Regular rhythm. Abdomen: Soft and nontender. PLAN: Continue physical therapy, make a decision about physical medicine and rehabilitation after their assessment. She is willing to wait until Saturday for them to see her.
[2016-10-27 14:00] VITALS: BP 148/78
[2016-10-27 20:00] VITALS: BP 165/71
[2016-10-27] MEDS: **NOTE PATIENT COMMENT** MISC XX SCH (21:45)
[2016-10-28 05:54] LABS: BASO % 0.3 % (0.0-1.0); EOS # 0.1 K/mm3 (0.0-0.50); EOS % 2.6 % (0.0-3.0); LARGE UNSTAINED CELL # 0.1 K/mm3 (0.0-0.4); LARGE UNSTAINED CELL % 2.5 % (0.0-4.0); LYMPH # 2.9 K/mm3 (1.5-4.5); LYMPH % 52.3 % (24.0-44.0); MEAN CORPUSCULAR HEMOGLOBIN 31.1 pg (27.0-33.0); MEAN CORPUSCULAR HGB CONC 32.9 g/dl (32.0-36.5); MEAN CORPUSCULAR VOLUME 94.8 fl (80.0-96.0); MONO # 0.4 K/mm3 (0.0-0.8); MONO % 7.8 % (0.0-5.0); NEUTROPHILS # 1.9 K/mm3 (1.8-7.7); NEUTROPHILS % 34.4 % (36.0-66.0); PLATELET COUNT, AUTOMATED 236 k/mm3 (150-450); RED CELL DISTRIBUTION WIDTH 12.8 % (11.5-14.5); WHITE BLOOD COUNT 5.5 K/mm3 (4.0-10.0)
[2016-10-28] MEDS: PERCOCET 5MG/325MG TAB PO PRN (05:56)
[2016-10-28] MEDS: LEVOTHYROXINE 0.1 MG TAB (100 MCG) PO SCH (05:56)
[2016-10-28] MEDS: ANUSOL HC 25MG SUPP PR SCH ×3 (05:56→21:01)
[2016-10-28] MEDS: SLF 3 ML SYR IV SCH ×3 (05:56→20:42)
[2016-10-28 06:00] VITALS: BP_SYST 137; BP_SYST 162; BP_DIAS 64; BP_DIAS 72
[2016-10-28 06:12] LABS: ALBUMIN 3.1 GM/DL (3.2-5.2); ALBUMIN/GLOBULIN RATIO 0.86 (1.00-1.93); ALKALINE PHOSPHATASE 59 U/L (45-117); ALT/SGPT 18 U/L (12-78); ANION GAP 7 MEQ/L (8-16); AST/SGOT 10 U/L (15-37); BILIRUBIN,TOTAL 0.1 MG/DL (0.2-1.0); BLOOD UREA NITROGEN 19 MG/DL (7-18); CALCIUM LEVEL 8.2 MG/DL (8.8-10.2); CARBON DIOXIDE LEVEL 27 MEQ/L (21-32); CHLORIDE LEVEL 108 MEQ/L (98-107); CREATININE FOR GFR 0.65 MG/DL (0.55-1.02); GLOMERULAR FILTRATION RATE > 60.0 (>39); GLUCOSE, FASTING 114 MG/DL (83-110); POTASSIUM SERUM 4.4 MEQ/L (3.5-5.1); SODIUM LEVEL 142 MEQ/L (136-145); TOTAL PROTEIN 6.7 GM/DL (6.4-8.2)
[2016-10-28] MEDS: HumaLOG INSULIN (NovoLOG) PER UNIT SC SCH ×4 (08:19→20:45)
[2016-10-28] MEDS: ENOXAPARIN 40 MG/0.4 ML SYRINGE (J1650) SC SCH (08:20)
[2016-10-28] MEDS: LIDOCAINE 5% (LIDODERM) PATCH TD SCH (08:20)
[2016-10-28] MEDS: ISOSORBIDE MON. (IMDUR) 30 MG XR TAB PO SCH (08:20)
[2016-10-28] MEDS: QUEtiapine FUMARATE 50 MG TAB PO SCH ×2 (08:21→20:39)
[2016-10-28] MEDS: PRIMIDONE 125MG PER 1/2 TABLET PO SCH ×2 (08:21→20:39)
[2016-10-28] MEDS: ASPIRIN 81 MG ENTERIC TAB PO SCH (08:21)
[2016-10-28] MEDS: CEPHALEXIN 500 MG CAP PO SCH ×2 (08:21→20:41)
[2016-10-28] MEDS: CitaloPRAM (CeleXA) 10 MG TABLET PO SCH (08:21)
[2016-10-28] MEDS: RAMIPRIL 5 MG CAP PO SCH (08:21)
[2016-10-28] MEDS: METOPROLOL TART 50 MG TAB PO SCH ×2 (08:22→20:41)
[2016-10-28] MEDS: POTASSIUM CHLORIDE 10 MEQ SR TABLET PO SCH ×2 (08:22→20:41)
[2016-10-28 14:00] VITALS: BP 103/55
--- NOTE | 2016-10-28 15:15 | IPN ---
DATE: 10/28/2016 Ynes is unchanged from yesterday. She is ambulating well. She thinks she can go home. PHYSICAL EXAMINATION: Vital signs are stable. She was not examined today. LABORATORIES: Her laboratory work was all stable. PLAN: Home safety evaluation tomorrow. Decide on Physical Medicine and Rehabilitation (PM R) versus discharge home. At this point, it looks as though she will probably be able to go home. Klebsiella urinary tract infection (UTI). She is on Keflex and responding well. Neurologic event, question serotonin syndrome. This is resolved. She has a tremor, which is at her baseline.
[2016-10-28] MEDS: **NOTE PATIENT COMMENT** MISC XX SCH (20:41)
[2016-10-28 22:00] VITALS: BP 145/67
[2016-10-29 05:43] LABS: BASO % 0.3 % (0.0-1.0); EOS # 0.2 K/mm3 (0.0-0.50); EOS % 2.6 % (0.0-3.0); LARGE UNSTAINED CELL # 0.1 K/mm3 (0.0-0.4); LARGE UNSTAINED CELL % 2.3 % (0.0-4.0); LYMPH # 2.9 K/mm3 (1.5-4.5); LYMPH % 51.5 % (24.0-44.0); MEAN CORPUSCULAR HEMOGLOBIN 31.3 pg (27.0-33.0); MEAN CORPUSCULAR HGB CONC 32.7 g/dl (32.0-36.5); MEAN CORPUSCULAR VOLUME 95.6 fl (80.0-96.0); MONO # 0.4 K/mm3 (0.0-0.8); MONO % 7.2 % (0.0-5.0); NEUTROPHILS % 36.1 % (36.0-66.0); PLATELET COUNT, AUTOMATED 226 k/mm3 (150-450); RED CELL DISTRIBUTION WIDTH 12.8 % (11.5-14.5); WHITE BLOOD COUNT 5.6 K/mm3 (4.0-10.0)
[2016-10-29 05:58] LABS: ALBUMIN 3.1 GM/DL (3.2-5.2); ALBUMIN/GLOBULIN RATIO 0.86 (1.00-1.93); ALKALINE PHOSPHATASE 55 U/L (45-117); ALT/SGPT 24 U/L (12-78); ANION GAP 8 MEQ/L (8-16); AST/SGOT 15 U/L (15-37); BILIRUBIN,TOTAL 0.1 MG/DL (0.2-1.0); BLOOD UREA NITROGEN 18 MG/DL (7-18); CALCIUM LEVEL 8.2 MG/DL (8.8-10.2); CARBON DIOXIDE LEVEL 26 MEQ/L (21-32); CHLORIDE LEVEL 107 MEQ/L (98-107); CREATININE FOR GFR 0.65 MG/DL (0.55-1.02); GLOMERULAR FILTRATION RATE > 60.0 (>39); GLUCOSE, FASTING 103 MG/DL (83-110); POTASSIUM SERUM 4.4 MEQ/L (3.5-5.1); SODIUM LEVEL 141 MEQ/L (136-145); TOTAL PROTEIN 6.7 GM/DL (6.4-8.2)
[2016-10-29] MEDS: ANUSOL HC 25MG SUPP PR SCH (05:59)
[2016-10-29] MEDS: LEVOTHYROXINE 0.1 MG TAB (100 MCG) PO SCH (05:59)
[2016-10-29 06:00] VITALS: BP 128/68
[2016-10-29] MEDS: SLF 3 ML SYR IV SCH (06:01)
[2016-10-29] MEDS ORDERED: PRIM125TAB PO (08:51)
[2016-10-29] MEDS ORDERED: CEPH500C PO (08:51)
[2016-10-29] MEDS ORDERED: ASPI81TAEC PO (08:51)
[2016-10-29] MEDS ORDERED: POTA10CA PO (08:51)
[2016-10-29] MEDS ORDERED: LIDO5TD TD (08:51)
[2016-10-29] MEDS ORDERED: QUET5TAB PO (08:51)
[2016-10-29] MEDS ORDERED: CELE10TA PO (08:51)
[2016-10-29] MEDS ORDERED: ISOS30TA4 PO (08:51)
[2016-10-29] MEDS ORDERED: ACET50TA PO (08:51)
[2016-10-29] MEDS ORDERED: LOPR1TAB6 PO (08:51)
[2016-10-29] MEDS: HumaLOG INSULIN (NovoLOG) PER UNIT SC SCH ×2 (09:05→12:00)
--- NOTE | 2016-10-29 09:24 | DSES ---
DATE OF ADMISSION: 10/11/2016 DATE OF DISCHARGE: 10/29/2016 PRIMARY CARE PROVIDER: Dr. Jakub Burgess ATTENDING PHYSICIAN: Dr. Sallie Johansen CONSULTANTS: Dr. Garvey HISTORY OF PRESENT ILLNESS: Ynes Pollard is a 76-year-old female patient of Dr. Burgess who presented to [facility] emergency department with increasing tremor. She had recently been started on risperidone and initially the tremors improved, but then started to become worse. She was admitted for further evaluation and treatment. Neurology was consulted. There was a question of adverse reaction to the risperidone or possible serotonin syndrome. She was initially started on Seroquel. Discharge was being planned; however, her tremor recurred. Neurology continued to titrate her medication and her primidone was increased to 125 mg twice a day. As noted, Seroquel was added. The patient was started back on a lower dose of Celexa. She was seen by psychiatry who felt the patient's symptoms should be treated as per neurology. The psychiatrist did feel the patient should be treated for depression and as noted Celexa was restarted, but at a lower dose. Plans initially were to discharge home versus physical medicine and rehabilitation (PM and R) and the patient did well over the weekend and it was felt most likely she would be able to be discharged home. She does have a home safety evaluation scheduled for today and will be discharged home if she passes the home safety evaluation. The patient had developed a urinary tract infection (UTI) and was started on Keflex. She will be discharged home on continued Keflex if she is discharged home today. It is noted the patient does have a history of hypertension and she was continued on metoprolol; however, Imdur was started. She was also continued on her home dose of ramipril. PHYSICAL EXAMINATION: Temperature 96.7, pulse 67, respiratory rate is 15, blood pressure is 128/68, pulse oximetry 94% on room air. The patient is alert and oriented times three in no acute distress. Chest: Clear to auscultation bilaterally. No wheezes, rales or rhonchi. Heart: Regular rate and rhythm. Abdomen: Positive bowel sounds, soft, nontender. Extremities: No edema. Neurologic: No tremor appreciated. LABORATORIES: WBC 5.6, hemoglobin 10.5, hematocrit 32.1, platelets 226. Sodium 141, potassium 4.4, chloride 107, carbon dioxide 26, BUN 18, creatinine 0.65, glucose 103, calcium 8.2, total bilirubin 0.1, AST 15, ALT 24, alkaline phosphatase 55, total protein 6.7, albumin 3.1. Urine culture with Klebsiella oxytoca. MEDICATIONS: - acetaminophen 1000 mg by mouth every 6 hours as needed pain or fever - aspirin 81 mg by mouth daily - Keflex 500 mg by mouth twice a day times 7 days - Celexa 10 mg by mouth daily - isosorbide mononitrate ER 30 mg by mouth daily - lidocaine patches one patch apply to affected area - can leave on for up to 12 hours, must remove for 12 hours - Lopressor 50 mg by mouth twice a day - potassium chloride 10 mEq by mouth twice a day - primidone 125 mg by mouth twice a day - Seroquel 50 mg by mouth twice a day - Synthroid 100 mcg by mouth daily - metformin 500 mg by mouth twice a day - ramipril 10 mg by mouth daily DISCHARGE INSTRUCTIONS: Followup with Dr. Burgess in a week. Followup with Dr. Garvey/Dr. Dyson in a week. Diet is consistent carbohydrate. Activity as tolerated. DISCHARGE DIAGNOSES: 1. Abnormal involuntary movements/tremor/neurologic event/question serotonin syndrome. 2. Diabetes mellitus. 3. Hypothyroidism. 4. Hypertension. 5. Chronic low back pain. 6. Klebsiella urinary tract infection. FELICIA
[2016-10-29] MEDS: CEPHALEXIN 500 MG CAP PO SCH (10:09)
[2016-10-29] MEDS: RAMIPRIL 5 MG CAP PO SCH (10:09)
[2016-10-29] MEDS: ASPIRIN 81 MG ENTERIC TAB PO SCH (10:10)
[2016-10-29] MEDS: CitaloPRAM (CeleXA) 10 MG TABLET PO SCH (10:10)
[2016-10-29] MEDS: ISOSORBIDE MON. (IMDUR) 30 MG XR TAB PO SCH (10:10)
[2016-10-29 10:11] VITALS: BP 144/70
[2016-10-29] MEDS: METOPROLOL TART 50 MG TAB PO SCH (10:11)
[2016-10-29] MEDS: POTASSIUM CHLORIDE 10 MEQ SR TABLET PO SCH (10:11)
[2016-10-29] MEDS: PRIMIDONE 125MG PER 1/2 TABLET PO SCH (10:12)
[2016-10-29] MEDS: QUEtiapine FUMARATE 50 MG TAB PO SCH (10:12)
[2016-10-29] MEDS: ENOXAPARIN 40 MG/0.4 ML SYRINGE (J1650) SC SCH (10:12)
[2016-10-29] MEDS: LIDOCAINE 5% (LIDODERM) PATCH TD SCH (10:13)
== END 2016-10-29 13:25 | disposition home health service (06) | DRG 57 ==
LOC: M ED 20:01 → M ED INP 10-11 02:01 → M PCU 10-11 11:45 → M MS5PR 10-12 13:22 → M PCU 10-18 10:51 → M MSPAV 10-20 17:38
PROVIDERS: ADMIT Internal Medicine; ATTEND Family Medicine
DX: G25.5 Other chorea (principal); N39.0 Urinary tract infection, site not specified; G89.29 Other chronic pain; E03.9 Hypothyroidism, unspecified; I10 Essential (primary) hypertension; E11.9 Type 2 diabetes mellitus without complications; F32.9 Major depressive disorder, single episode, unspecified; R19.7 Diarrhea, unspecified; M54.5 Low back pain; R21 Rash and other nonspecific skin eruption; R00.0 Tachycardia, unspecified; G25.0 Essential tremor; I49.3 Ventricular premature depolarization; B96.1 Klebsiella pneumoniae [K. pneumoniae] as the cause of diseases classified elsewhere; M62.81 Muscle weakness (generalized); R00.8 Other abnormalities of heart beat; I67.2 Cerebral atherosclerosis; T43.595A Adverse effect of other antipsychotics and neuroleptics, initial encounter; T41.3X5A Adverse effect of local anesthetics, initial encounter; M19.90 Unspecified osteoarthritis, unspecified site; Z79.84 Long term (current) use of oral hypoglycemic drugs; Z79.899 Other long term (current) drug therapy; Z88.2 Allergy status to sulfonamides; Z87.442 Personal history of urinary calculi

== ENCOUNTER → 2017-05-16 | Outpatient (REF) | payer MEDICARE ==
[~2017-05-16] MED LIST changes: +ACET50TA PO; +ASPI81TAEC PO; +CELE10TA PO; +CEPH500C PO; +CITA20TA4 PO; +ISOS30TA4 PO; +LIDO5TD TD; -LYRI100C10 PO; -METF500T PO; +METF500T13 PO; -OXYC20TA21 PO; +OXYC20TA40 PO; +POTA10CA PO; -PRED10TA PO; +PRED10TA2 PO; +PREG100CA PO; +PRIM125TAB PO; +PRIM50TA6 PO; +QUET5TAB PO; +RISP0.5T3 PO
== END ==
LOC: M SFHCPLAZ 13:15
PROVIDERS: ATTEND Family Medicine
DX: R30.0 Dysuria (principal)

== ENCOUNTER → 2017-05-22 | Outpatient (REF) | payer MEDICARE ==
[2017-05-22 16:01] LABS: BASO % 0.5 % (0.0-1.0); EOS # 0.1 10^3/uL (0.0-0.50); EOS % 2.3 % (0.0-3.0); IMMATURE GRANULOCYTE % 0.2 % (0-0); LYMPH # 3.3 10^3/uL (1.5-4.5); LYMPH % 52.8 % (24.0-44.0); MEAN CORPUSCULAR HEMOGLOBIN 31.2 pg (27.0-33.0); MEAN CORPUSCULAR HGB CONC 32.9 g/dl (32.0-36.5); MEAN CORPUSCULAR VOLUME 94.8 fl (80.0-96.0); MONO # 0.6 10^3/uL (0.0-0.8); MONO % 9.1 % (0.0-5.0); NEUTROPHILS # 2.2 10^3/uL (1.8-7.7); NEUTROPHILS % 35.1 % (36.0-66.0); PLATELET COUNT, AUTOMATED 222 10^3/uL (150-450); RED CELL DISTRIBUTION WIDTH 13.6 % (11.5-14.5); WHITE BLOOD COUNT 6.2 10^3/uL (4.0-10.0)
[2017-05-22 16:17] LABS: ALBUMIN 3.6 GM/DL (3.2-5.2); BILIRUBIN,TOTAL 0.1 MG/DL (0.2-1.0); CALCIUM LEVEL 8.8 MG/DL (8.8-10.2); CREATININE FOR GFR 1.05 MG/DL (0.55-1.02); GLOMERULAR FILTRATION RATE 54.2 (>39); POTASSIUM SERUM 4.1 MEQ/L (3.5-5.1); TOTAL PROTEIN 7.2 GM/DL (6.4-8.2)
== END ==
LOC: M SFHCPLAZ 13:56
PROVIDERS: ATTEND Nurse Practitioner Family
DX: R19.7 Diarrhea, unspecified (principal); R10.31 Right lower quadrant pain

== ENCOUNTER → 2017-12-05 | Outpatient (REF) | payer MEDICARE ==
[2017-12-05 13:33] LABS: BASO % 0.4 % (0.0-1.0); EOS # 0.2 10^3/uL (0.0-0.50); EOS % 2.6 % (0.0-3.0); HEMATOCRIT 32.1 % (36.0-47.0); HEMOGLOBIN 10.5 g/dl (12.0-15.5); IMMATURE GRANULOCYTE % 0.2 % (0-3.0); LYMPH # 4.1 10^3/uL (1.5-4.5); LYMPH % 51.6 % (24.0-44.0); MEAN CORPUSCULAR HEMOGLOBIN 30.4 pg (27.0-33.0); MEAN CORPUSCULAR HGB CONC 32.7 g/dl (32.0-36.5); MONO # 0.8 10^3/uL (0.0-0.8); MONO % 9.6 % (0.0-5.0); NEUTROPHILS # 2.9 10^3/uL (1.8-7.7); NEUTROPHILS % 35.6 % (36.0-66.0); PLATELET COUNT, AUTOMATED 198 10^3/uL (150-450); RED BLOOD COUNT 3.45 10^6/uL (4.00-5.40); RED CELL DISTRIBUTION WIDTH 14.3 % (11.5-14.5)
[2017-12-05 14:15] LABS: ALBUMIN 3.9 GM/DL (3.2-5.2); ALBUMIN/GLOBULIN RATIO 0.95 (1.00-1.93); ALKALINE PHOSPHATASE 76 U/L (45-117); ALT/SGPT 17 U/L (12-78); ANION GAP 8 MEQ/L (8-16); AST/SGOT 15 U/L (7-37); BILIRUBIN,TOTAL 0.1 MG/DL (0.2-1.0); BLOOD UREA NITROGEN 17 MG/DL (7-18); CALCIUM LEVEL 8.5 MG/DL (8.8-10.2); CARBON DIOXIDE LEVEL 26 MEQ/L (21-32); CHLORIDE LEVEL 105 MEQ/L (98-107); CREATININE FOR GFR 0.82 MG/DL (0.55-1.30); FERRITIN 20 NG/ML (8-252); GLOMERULAR FILTRATION RATE > 60.0 (>39); GLUCOSE, FASTING 96 MG/DL (70-100); IRON (FE) 70 UG/DL (50-170); PERCENT SATURATION 16.8 % (13.2-45.0); POTASSIUM SERUM 4.5 MEQ/L (3.5-5.1); SODIUM LEVEL 139 MEQ/L (136-145); TOTAL IRON BINDING CAPACITY 417 UG/DL (250-450)
== END ==
LOC: M SFHCPLAZ 11:39
DX: R19.7 Diarrhea, unspecified (principal); R35.0 Frequency of micturition; K64.8 Other hemorrhoids; K62.5 Hemorrhage of anus and rectum; N20.0 Calculus of kidney; N15.1 Renal and perinephric abscess; L08.9 Local infection of the skin and subcutaneous tissue, unspecified
CPT/HCPCS: 83550

== ENCOUNTER → 2017-12-11 | Outpatient (CLI) | payer MEDICARE | LOC: M RAD 15:58 | DX: N15.1 Renal and perinephric abscess (principal); N20.0 Calculus of kidney | CPT/HCPCS: 76775 ==

== ENCOUNTER → 2018-01-06 | Outpatient (REF) | payer MEDICARE | LOC: M SFHCPLAZ 09:20 | DX: R30.0 Dysuria (principal); R19.7 Diarrhea, unspecified ==

== ENCOUNTER → 2018-01-08 | Outpatient (CLI) | payer MEDICARE | LOC: M RAD 17:19 | DX: M16.11 Unilateral primary osteoarthritis, right hip (principal); R19.7 Diarrhea, unspecified; R30.0 Dysuria | CPT/HCPCS: 73502 ==

== ENCOUNTER → 2018-01-08 | Outpatient (REF) | payer MEDICARE ==
[2018-01-08 18:53] LABS: APPEARANCE, URINE HAZY (CLEAR); BACTERIA, URINE AUTO NEGATIVE (NEGATIVE); BILIRUBIN, URINE AUTO NEGATIVE (NEGATIVE); BLOOD, URINE BLOOD NEGATIVE (NEGATIVE); COLOR, URINE YELLOW (YELLOW); GLUCOSE, URINE (UA) AUTO NEGATIVE (NEGATIVE); KETONE, URINE AUTO NEGATIVE (NEGATIVE); LEUKOCYTE ESTERASE, URINE AUTO 2+ (NEGATIVE); MUCUS, URINE SMALL (NEGATIVE); NITRITE, URINE AUTO NEGATIVE (NEGATIVE); PROTEIN, URINE AUTO NEGATIVE (NEGATIVE); RBC, URINE AUTO 2 /HPF (0-3); SPECIFIC GRAVITY URINE AUTO 1.025 (1.002-1.035); SQUAMOUS EPITHELIAL CELL UR AU 3 /HPF (0-6); TRANSITIONAL EPITHELIAL AUTO <1 /HPF; UROBILINOGEN, URINE AUTO 0.2 mg/dL (0.0-2.0); WBC, URINE AUTO 4 /HPF (0-3)
== END ==
LOC: M SFHCPLAZ 17:33
DX: R19.7 Diarrhea, unspecified (principal); R30.0 Dysuria

== ENCOUNTER 2018-08-15 15:36 | Inpatient (IN) | payer MEDICARE ==
[~2018-08-15] VITALS: Ht 157.5 cm; Wt 72.4 kg
[~2018-08-15 15:36] MED LIST changes: -ACET50TA PO; -AMLO5TAB2 PO; +AMLO5TAB6 PO; -CARB25TA PO; +CARB25TA9 PO; +KLOR10TA76 PO; +MAPA500T2 PO; +NORCOTAB PO; -POTA10CA PO; -RAMI10CA PO; +RAMI1CAP26 PO; +ZOFR4TAB14 PO
[2018-08-15] MEDS ORDERED: diphenhydrAMINE INJ 50MG/ML VIAL (J1200) IV PRN (16:00)
[2018-08-15] MEDS ORDERED: NALBUPHINE HCL 10 MG/ML AMP (J2300) IV PRN (16:00)
[2018-08-15] MEDS ORDERED: ONDANSETRON 4MG/2ML VIAL (J2405) IV PRN (16:00)
[2018-08-15] MEDS ORDERED: NALOXONE INJ 0.4 MG/1 ML VIAL (J2310) IV PRN (16:00)
[2018-08-15] MEDS ORDERED: EPIDURAL/PCA KEYS XX PRN (16:00)
[2018-08-15] MEDS ORDERED: ACETAMINOPHEN 500 MG TAB PO PRN (16:15)
[2018-08-15 16:45] VITALS: BP 136/65
[2018-08-15] MEDS: GABAPENTIN 300 MG CAP PO SCH ×2 (17:09→23:01)
[2018-08-15] MEDS: KETOROLAC 30 MG/ML VIAL (J1885) IV SCH ×2 (17:09→23:02)
[2018-08-15] MEDS ORDERED: GLUCAGON FOR INJ 1 MG VIAL (J1610) SC PRN (17:30)
[2018-08-15] MEDS: HumaLOG INSULIN (NovoLOG) PER UNIT SC SCH ×2 (17:30→21:00)
[2018-08-15] MEDS ORDERED: DEXTROSE 50% 50 ML SYRINGE IV PRN (17:30)
[2018-08-15] MEDS ORDERED: NS 500 ML IV ONE (17:30)
[2018-08-15] MEDS ORDERED: GLUCOSE 4 GM CHEW TABLET PO PRN (17:30)
[2018-08-15] MEDS: MORPHINE 1MG/ML IN 0.9% NACL 100ML IV BAG IV PRN (17:31)
[2018-08-15] MEDS: NS 1,000 ML IV SCH ×2 (17:31→17:37)
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
[2018-08-15 17:54] LABS: BASO % 0.3 % (0.0-1.0); EOS # 0.2 10^3/uL (0.0-0.50); EOS % 2.3 % (0.0-3.0); HEMATOCRIT 33.7 % (36.0-47.0); HEMOGLOBIN 11.2 g/dl (12.0-15.5); LYMPH # 4.3 10^3/uL (1.5-4.5); LYMPH % 56.5 % (24.0-44.0); MEAN CORPUSCULAR HEMOGLOBIN 30.9 pg (27.0-33.0); MEAN CORPUSCULAR HGB CONC 33.2 g/dl (32.0-36.5); MEAN CORPUSCULAR VOLUME 93.1 fl (80.0-96.0); MONO # 0.7 10^3/uL (0.0-0.8); MONO % 8.6 % (0.0-5.0); NEUTROPHILS # 2.5 10^3/uL (1.8-7.7); PLATELET COUNT, AUTOMATED 202 10^3/uL (150-450); RED BLOOD COUNT 3.62 10^6/uL (4.00-5.40); WHITE BLOOD COUNT 7.7 10^3/uL (4.0-10.0)
[2018-08-15 18:00] VITALS: BP 142/78
[2018-08-15 18:26] LABS: ALBUMIN 3.6 GM/DL (3.2-5.2); ALT/SGPT 22 U/L (12-78); BILIRUBIN,TOTAL 0.2 MG/DL (0.2-1.0); BLOOD UREA NITROGEN 15 MG/DL (7-18); C REACTIVE PROTEIN QUANTITATIV 0.76 MG/DL (0.00-0.30); CALCIUM LEVEL 8.6 MG/DL (8.8-10.2); CARBON DIOXIDE LEVEL 24 MEQ/L (21-32); CHLORIDE LEVEL 104 MEQ/L (98-107); CREATININE FOR GFR 0.84 MG/DL (0.55-1.30); GLOMERULAR FILTRATION RATE > 60.0 (>39); GLUCOSE, FASTING 96 MG/DL (70-100); POTASSIUM SERUM 4.4 MEQ/L (3.5-5.1); SODIUM LEVEL 138 MEQ/L (136-145); TOTAL PROTEIN 7.2 GM/DL (6.4-8.2)
[2018-08-15 18:30] VITALS: BP 142/72
[2018-08-15 18:45] LABS: ERYTHROCYTE SEDIMENTATION RATE 27 mm/hr (0-30)
[2018-08-15 20:30] VITALS: BP 124/86
[2018-08-15] MEDS ORDERED: SYNT112T2 PO (20:55)
[2018-08-15] MEDS ORDERED: CITA-229 PO (20:55)
[2018-08-15] MEDS ORDERED: ASPI1TAB PO (20:55)
[2018-08-15] MEDS ORDERED: ISOS30TA4 PO (20:56)
[2018-08-15] MEDS ORDERED: OXYC1TAB23 PO (21:00)
[2018-08-15] MEDS ORDERED: POTA10TA16 PO (21:00)
[2018-08-15] MEDS ORDERED: PRIM50TA6 PO (21:00)
[2018-08-15] MEDS ORDERED: QUET5TAB PO (21:02)
[2018-08-15 21:30] VITALS: BP 130/80
[2018-08-15] MEDS ORDERED: LIDOCAINE 5% (LIDODERM) PATCH TD SCH (21:30)
[2018-08-15 22:30] VITALS: BP 135/85
--- NOTE | 2018-08-15 23:11 | REPVR ---
EXAM: MR Lumbar Spine Without Contrast. EXAM DATE/TIME: 08/15/2018 10:45 PM CLINICAL HISTORY: 77 years old, female; Pain; Lumbago with sciatica; Right; Patient HX: Intractable low back pain; RT sided sciatica, call dr partida [phone]. ; Additional info: Right sided sciatica, intractable, call dr. Partida [phone] TECHNIQUE: Multiplanar magnetic resonance images of the lumbar spine without intravenous contrast. COMPARISON: MRI-LS SPINE W/O FOLL WITH CON 08/01/2016 5:26 PM FINDINGS: There appear to be 5 lumbar type vertebral bodies with partial lumbarization of the S1 vertebral body. There is normal lumbar lordosis. There is an anterior and central compression deformity of L1 with loss of vertebral body height approximately 35%. This is similar to previous examination and likely chronic. Lumbar vertebral body heights are otherwise maintained. Disc spaces are maintained with prominent disc material at S1-S2. There is disc desiccation throughout the lumbar spine. Mild degenerative anterior osteophyte formation with no AP malalignment. Axial images are moderately degraded by patient motion. At the level of L1-L2 there is a small posterior disc osteophyte complex with no definite evidence of significant central canal or neural foraminal stenosis. At the level of L2-L3 there is a small posterior disc osteophyte complex. No definite evidence of significant central canal or neural foraminal stenosis. At the level of L3-L4, there is a diffuse disc bulge with superimposed broad-based disc protrusion measuring up to 3.5 mm in AP diameter. There is facet and ligamentous hypertrophy with overall mild to moderate central canal stenosis. Probable proximal right neural foraminal stenosis on the exiting L3 nerve root. At the level L4-L5, there is a diffuse disc bulge with superimposed broad-based disc protrusion measuring 4 mm in AP diameter. There is facet and ligamentous hypertrophy with overall moderate central canal stenosis. Probable proximal bilateral neural foraminal stenosis on the exiting L4 nerve roots. At the level of L5-S1, there is a broad-based disc protrusion measuring nearly 4.5 mm in AP diameter. Facet and ligamentous hypertrophy overall moderate central canal stenosis. Probable proximal neural foraminal stenosis on the exiting right L5 nerve root. IMPRESSION: Examination is moderately limited by patient motion. Multilevel spondylotic changes as described above. These have shown interval progression compared to previous examination. Electronically signed by: Ramon Santos On 08/15/2018 23:11:05 PM
[2018-08-16] VITALS (7 sets, daily range): BP systolic 111–175; BP diastolic 54–86
[2018-08-16] MEDS: KETOROLAC 30 MG/ML VIAL (J1885) IV SCH ×2 (05:41→11:11)
[2018-08-16] MEDS: LEVOTHYROXINE 112MCG TABLET (0.112MG) PO SCH (05:42)
[2018-08-16 06:03] LABS: HEMATOCRIT 33.4 % (36.0-47.0); HEMOGLOBIN 10.8 g/dl (12.0-15.5); MEAN CORPUSCULAR HGB CONC 32.3 g/dl (32.0-36.5); PLATELET COUNT, AUTOMATED 184 10^3/uL (150-450); RED BLOOD COUNT 3.48 10^6/uL (4.00-5.40); WHITE BLOOD COUNT 8.1 10^3/uL (4.0-10.0)
[2018-08-16 06:33] LABS: BLOOD UREA NITROGEN 19 MG/DL (7-18); CALCIUM LEVEL 7.9 MG/DL (8.8-10.2); CARBON DIOXIDE LEVEL 25 MEQ/L (21-32); CHLORIDE LEVEL 102 MEQ/L (98-107); CREATININE FOR GFR 0.88 MG/DL (0.55-1.30); GLOMERULAR FILTRATION RATE > 60.0 (>39); GLUCOSE, FASTING 119 MG/DL (70-100); POTASSIUM SERUM 4.6 MEQ/L (3.5-5.1); SODIUM LEVEL 137 MEQ/L (136-145)
[2018-08-16 06:40] LABS: FREE T4 0.7 NG/DL (0.76-1.46); MAGNESIUM LEVEL 1.8 MG/DL (1.8-2.4); THYROID STIMULATING HORMONE 3.66 uIU/ML (0.358-3.740)
[2018-08-16 06:46] LABS: ERYTHROCYTE SEDIMENTATION RATE 18 mm/hr (0-30)
[2018-08-16] MEDS: HumaLOG INSULIN (NovoLOG) PER UNIT SC SCH ×4 (07:30→20:54)
[2018-08-16] MEDS ORDERED: PREVNAR 13 VACCINE SYRINGE (CPT CODE:90670) IM ONE (09:00)
[2018-08-16] MEDS: RAMIPRIL 5 MG CAP PO SCH (09:00)
[2018-08-16] MEDS: **NOTE PATIENT COMMENT** MISC XX SCH (09:00)
[2018-08-16] MEDS: ISOSORBIDE MON. (IMDUR) 30 MG XR TAB PO SCH (09:10)
[2018-08-16] MEDS: CitaloPRAM (CeleXA) 10 MG TABLET PO SCH (09:10)
[2018-08-16] MEDS: GABAPENTIN 300 MG CAP PO SCH ×3 (09:11→20:15)
[2018-08-16] MEDS: QUEtiapine FUMARATE 50 MG TAB PO SCH ×2 (09:11→20:15)
[2018-08-16] MEDS: PRIMIDONE 50 MG TAB PO SCH ×2 (09:11→20:15)
[2018-08-16] MEDS: LIDOCAINE 5% (LIDODERM) PATCH TD SCH (20:15)
[2018-08-16] MEDS: NORCO, ANEXSIA 5/325MG TABLET (HYDROcodone/ACETAMINOPHEN) PO PRN (20:54)
[2018-08-16] MEDS: NS 1,000 ML IV SCH (22:44)
[2018-08-17 02:00] VITALS: BP 117/57
[2018-08-17] MEDS: NORCO, ANEXSIA 5/325MG TABLET (HYDROcodone/ACETAMINOPHEN) PO PRN (05:32)
[2018-08-17] MEDS: LEVOTHYROXINE 112MCG TABLET (0.112MG) PO SCH (05:33)
[2018-08-17 06:00] VITALS: BP 123/66
[2018-08-17] MEDS: RAMIPRIL 5 MG CAP PO SCH (07:35)
[2018-08-17] MEDS: QUEtiapine FUMARATE 50 MG TAB PO SCH ×2 (08:07→20:40)
[2018-08-17] MEDS: GABAPENTIN 300 MG CAP PO SCH ×3 (08:07→20:40)
[2018-08-17] MEDS: CitaloPRAM (CeleXA) 10 MG TABLET PO SCH (08:07)
[2018-08-17] MEDS: PRIMIDONE 50 MG TAB PO SCH ×2 (08:07→20:40)
[2018-08-17] MEDS: ISOSORBIDE MON. (IMDUR) 30 MG XR TAB PO SCH (08:07)
[2018-08-17] MEDS: HumaLOG INSULIN (NovoLOG) PER UNIT SC SCH ×2 (08:08→12:00)
[2018-08-17] MEDS: **NOTE PATIENT COMMENT** MISC XX SCH (08:08)
[2018-08-17 10:00] VITALS: BP 116/72
[2018-08-17 14:00] VITALS: BP 126/68
[2018-08-17] MEDS: metFORMIN (GLUCOPHAGE) 500 MG TAB PO SCH (17:05)
[2018-08-17 18:00] VITALS: BP 146/65
[2018-08-17] MEDS: LIDOCAINE 5% (LIDODERM) PATCH TD SCH (20:40)
[2018-08-17 22:00] VITALS: BP 138/65
[2018-08-18] VITALS (7 sets, daily range): BP systolic 78–149; BP diastolic 52–71
[2018-08-18] MEDS: LEVOTHYROXINE 112MCG TABLET (0.112MG) PO SCH (05:24)
[2018-08-18] MEDS: metFORMIN (GLUCOPHAGE) 500 MG TAB PO SCH ×2 (08:16→17:26)
[2018-08-18] MEDS: CitaloPRAM (CeleXA) 10 MG TABLET PO SCH (08:16)
[2018-08-18] MEDS: GABAPENTIN 300 MG CAP PO SCH ×3 (08:16→20:11)
[2018-08-18] MEDS: ISOSORBIDE MON. (IMDUR) 30 MG XR TAB PO SCH (08:17)
[2018-08-18] MEDS: **NOTE PATIENT COMMENT** MISC XX SCH (08:17)
[2018-08-18] MEDS: QUEtiapine FUMARATE 50 MG TAB PO SCH ×2 (08:17→20:10)
[2018-08-18] MEDS: PRIMIDONE 50 MG TAB PO SCH ×2 (08:17→20:11)
[2018-08-18] MEDS: RAMIPRIL 5 MG CAP PO SCH (08:18)
--- NOTE | 2018-08-18 11:03 | IPNPDOC ---
Subjective Date Seen The patient was seen on 08/18/18. Subjective Chief Complaint/HPI Pt this morning reports that her pain is better controlled. She wanted to reach her arm to where the pain was most bothersome to her. She has no other concerns today. She has family at bedside. General: Denies: Fatigue Constitutional: Denies: Chills, Fever ENT: Denies: Head Aches Pulmonary: Denies: Dyspnea, Cough Cardiovascular: Denies: Chest Pain, Palpitations Gastrointestinal: Denies: Nausea, Vomiting, Diarrhea Musculoskeletal: Reports: Back Pain, Leg Pain Neurological: Reports: Weakness; Denies: Numbness Psych: Reports: Anxiety Objective Physical Examination General Exam: Positive: Alert, No Acute Distress ENT Exam: Positive: Mucous membr. moist/pink Chest Exam: Positive: Clear to auscultation, Normal air movement Heart Exam: Positive: Rate Normal, Normal S1, Normal S2 Abdomen Exam: Positive: Normal bowel sounds, Soft; Negative: Tenderness Extremity Exam: Negative: Edema Neuro Exam: Positive: Normal Speech Psych Exam: Positive: Mental status NL, Mood NL Other physical findings Pain with gentle palpation at L spine paraspinal muscles as well as over the buttocks. Assessment /Plan Problems (1) Intractable low back pain Onset Date: 03/22/2014 Status: Acute Response to Treatment: Stable, Improving Problem Specific Plan: Monitor Clinically, Repeat Labs Problem Text: Pt no longer using SUPERVISOR BLAST FURNACE but controlled with [place]. Enc continued use, will start PT, pt and nursing aware. (2) Hypotension, iatrogenic Onset Date: 03/22/2014 Status: Acute Problem Specific Plan: Monitor Clinically Problem Text: asymptomatic, monitor. Plan/VTE VTE Prophylaxis Ordered?: Yes Plan Family Medicine Attending Note: I saw and examined Ms. Pollard, discussed with ANTOLIN Jamison. Agree with her note as documented. Unfortunately she had a setback from when Ariella saw her earlier in the day. She was hurting a lot more by noon time and was relying heavily on the SUPERVISOR BLAST FURNACE again. In fact I was called urgently to the floor to evaluate her because of an irregular heartbeat and hypotension. I believe that this was another vasovagal episode. I reviewed the sales and events coordinator strips and she was always in a sinus mechanism with reasonably frequent premature contractions. To confirm this I ordered a 12-lead EKG which showed normal sinus rhythm and a PVC. This patient has a history of vagaling down when she is in a lot of pain. I saw her again a second time at the end of the day. Her BP and heart rate were more steady. She had been able to take a nap for a few hours in the afternoon. It looked like she had actuated her SUPERVISOR BLAST FURNACE 5 ti mes in the previous 3 hours when I saw her. We will continue her current regimen and monitor. Perhaps we need to increase either the SUPERVISOR BLAST FURNACE dose or the basal rate, but I'd rather use orals as she was doing before today if it is possible. (electronic specialist) VS, I&O, 24H, Fishbone Vital Signs/I&O Vital Signs Date Time Temp Pulse Resp B/P (MAP) Pulse Ox O2 Delivery O2 Flow Rate FiO2 08/18/18 10:44 2.0 08/18/18 10:27 78/58 (65) 08/18/18 06:00 98.7 98 11 99 Nasal Cannula I&O- Last 24 Hours up to 6 AM 08/18/18 06:00 Intake Total 1690 ml Output Total 250 ml Balance 1440 ml Laboratory Data 24H LABS Laboratory Tests 2 08/17/18 11:33: Bedside Glucose (Misc Panel) 121H 08/17/18 16:41: Bedside Glucose (Misc Panel) 126H Microbiology Microbiology 08/15/18 Blood Culture - Preliminary, Resulted No Growth after 48 hours. All Specime... 08/15/18 Blood Culture - Preliminary, Resulted No Growth after 48 hours. All Specime... ARIELLA BURRIS PA-C Aug 18, 2018 11:03 Jakub Burgess MD Aug 18, 2018 21:31
--- NOTE | 2018-08-18 11:33 | IPN ---
DATE: 08/16/2018 Ynes was admitted with intractable back pain. She says her pain is now "workable 02/11" on patient controlled analgesia (WOOD FLOOR LAYER). PHYSICAL EXAM: Lying on her side, visiting with her son on the phone. Lungs clear. Heart: Regular rate and rhythm. Abdomen: Soft, nontender. Low back: As noted above. Moves arms and legs with equal strength. LABS: MRI scan showed no abscess, degenerative changes. IMPRESSION: Intractable back pain. PLAN: Continue WOOD FLOOR LAYER. Start physical therapy. She will probably be discharged early in a week.
--- NOTE | 2018-08-18 11:51 | IPN ---
DATE: 08/17/2018 Ynes is seen in [address] [place] [address]. She was admitted with intractable back pain. I do not know where the dictation from yesterday is, but the situation is unchanged today. I did get a call yesterday from the nursing staff. They were indicating that the patient did not seem capable of using her patient controlled analgesia (WRAPPER HAND). I asked the patient about this. She says that she knows how to use it, that she just "didn't need it." She then said she was having 8/10 pain. I met with the family, specifically the . He seemed puzzled about why she was having back pain. We had a discussion about her MRI scan that showed compression deformities, degenerative disc disease, degenerative joint disease, osteophyte formation, moderate spinal canal stenosis, and all of this is chronic and going to be a lifelong issue for her. He seemed unaware of her back problem. PHYSICAL EXAMINATION: She is resting comfortably. Family was in the room. VITAL SIGNS: Stable. When I went to examine her, I parted her gown on her lower back. She cried out in pain and arched her back. At this point, the only thing that I had touched was the garment and not her body, so I thought that was interesting. Full back does have tender spastic paravertebral muscles. IMPRESSION: Intractable back pain. PLAN: Patient wants to keep her patient controlled analgesia (WRAPPER HAND). I did start her on oral pain medicine tomorrow. Will order a home safety evaluation for tomorrow. Her behavior makes me think it might be hard to get her motivated to leave the hospital. Her blood sugars have remained under good control. She has required almost no insulin coverage, so we will stop the insulin coverage and fingersticks and just put her back on her metformin that she was taking as an outpatient.
[2018-08-18] MEDS: NS 1,000 ML IV SCH (16:12)
[2018-08-18] MEDS: LIDOCAINE 5% (LIDODERM) PATCH TD SCH (20:11)
[2018-08-18] MEDS: MORPHINE 1MG/ML IN 0.9% NACL 100ML IV BAG IV PRN (21:11)
[2018-08-19 02:00] VITALS: BP 144/64
[2018-08-19 06:00] VITALS: BP 145/66
[2018-08-19] MEDS: LEVOTHYROXINE 112MCG TABLET (0.112MG) PO SCH (06:00)
[2018-08-19 06:04] LABS: HEMATOCRIT 28.2 % (36.0-47.0); HEMOGLOBIN 8.9 g/dl (12.0-15.5); MEAN CORPUSCULAR HEMOGLOBIN 30.3 pg (27.0-33.0); MEAN CORPUSCULAR HGB CONC 31.6 g/dl (32.0-36.5); MEAN CORPUSCULAR VOLUME 95.9 fl (80.0-96.0); PLATELET COUNT, AUTOMATED 144 10^3/uL (150-450); RED BLOOD COUNT 2.94 10^6/uL (4.00-5.40); WHITE BLOOD COUNT 8.1 10^3/uL (4.0-10.0)
[2018-08-19 06:33] LABS: BLOOD UREA NITROGEN 13 MG/DL (7-18); CALCIUM LEVEL 8.1 MG/DL (8.8-10.2); CARBON DIOXIDE LEVEL 31 MEQ/L (21-32); CHLORIDE LEVEL 100 MEQ/L (98-107); CREATININE FOR GFR 0.81 MG/DL (0.55-1.30); GLOMERULAR FILTRATION RATE > 60.0 (>39); GLUCOSE, FASTING 128 MG/DL (70-100); POTASSIUM SERUM 3.9 MEQ/L (3.5-5.1); SODIUM LEVEL 137 MEQ/L (136-145)
[2018-08-19] MEDS: PRIMIDONE 50 MG TAB PO SCH ×2 (08:44→20:03)
[2018-08-19] MEDS: RAMIPRIL 5 MG CAP PO SCH (08:45)
[2018-08-19] MEDS: QUEtiapine FUMARATE 50 MG TAB PO SCH ×2 (08:46→20:03)
[2018-08-19] MEDS: ISOSORBIDE MON. (IMDUR) 30 MG XR TAB PO SCH (08:46)
[2018-08-19] MEDS: metFORMIN (GLUCOPHAGE) 500 MG TAB PO SCH ×2 (08:46→17:38)
[2018-08-19] MEDS: CitaloPRAM (CeleXA) 10 MG TABLET PO SCH (08:46)
[2018-08-19] MEDS: GABAPENTIN 300 MG CAP PO SCH ×3 (08:46→20:03)
[2018-08-19] MEDS: **NOTE PATIENT COMMENT** MISC XX SCH (08:50)
--- NOTE | 2018-08-19 09:02 | IPNPDOC ---
Subjective Date Seen The patient was seen on 08/19/18. Subjective Chief Complaint/HPI Pt this morning cont to c/o low back pain radiating into her bottom and leg. Her nurse reports that the pt is heavily dependent on her SOLDER MAKING LABORER. Yest I asked nursing to work to transition to more routine use of oral norco which wasn't done. General: Reports: Fatigue Constitutional: Denies: Chills, Fever ENT: Denies: Head Aches Skin: Denies: Rash Pulmonary: Denies: Dyspnea, Cough Cardiovascular: Denies: Chest Pain, Palpitations Gastrointestinal: Denies: Nausea, Vomiting, Diarrhea Neurological: Reports: Weakness Psych: Reports: Mood Normal Objective Physical Examination General Exam: Positive: Alert, No Acute Distress ENT Exam: Positive: Mucous membr. moist/pink Chest Exam: Positive: Clear to auscultation, Normal air movement Heart Exam: Positive: Rate Normal, Normal S1, Normal S2 Abdomen Exam: Positive: Normal bowel sounds, Soft; Negative: Tenderness Extremity Exam: Positive: Other (pain with palpation of L spine as well as L paraspinal muscles); Negative: Edema Neuro Exam: Positive: Normal Speech Psych Exam: Positive: Mental status NL, Mood NL Assessment /Plan Problems (1) Intractable low back pain Onset Date: 03/22/2014 Status: Acute Response to Treatment: Stable, Improving Problem Specific Plan: Monitor Clinically, Repeat Labs Problem Text: 08/19 pts SOLDER MAKING LABORER use increased yesterday and she wasn't given [place]. Will d/c SOLDER MAKING LABORER, and enc nursing to utilize [place]. PT to see today. 08/18 Pt no longer using SOLDER MAKING LABORER but controlled with [place]. Enc continued use, will start PT, pt and nursing aware. (2) Hypotension, iatrogenic Onset Date: 03/22/2014 Status: Acute Problem Specific Plan: Monitor Clinically Problem Text: asymptomatic, monitor. Plan/VTE VTE Prophylaxis Ordered?: Yes Plan Family Medicine Attending Note: I saw and examined Ms. Pollard, discussed with ANTOLIN Jamison. Agree with her note as documented. She seems to be tolerating the oral narcotics only just fine. Nursing staff reports they think she has been more motivated to move around the room once the SOLDER MAKING LABORER was d iscontinued. (transmission rebuilder) VS, I&O, 24H, Fishbone Vital Signs/I&O Vital Signs Date Time Temp Pulse Resp B/P (MAP) Pulse Ox O2 Delivery O2 Flow Rate FiO2 08/19/18 08:46 140/65 08/19/18 06:00 97.5 92 16 99 Nasal Cannula 2.0 I&O- Last 24 Hours up to 6 AM 08/19/18 06:00 Intake Total 1025 ml Output Total 495 ml Balance 530 ml Laboratory Data 24H LABS Laboratory Tests 2 08/18/18 11:41: Bedside Glucose (Misc Panel) 131H 08/18/18 16:56: Bedside Glucose (Misc Panel) 123H 08/18/18 20:00: Bedside Glucose (Misc Panel) 135H 08/19/18 05:27: Nucleated Red Blood Cells % (auto) 0.0, Anion Gap 6L, Glomerular Filtration Rate > 60.0, Blood Urea Nitrogen 13, Creatinine 0.81, Sodium Level 137, Potassium Level 3.9, Chloride Level 100, Carbon Dioxide Level 31, Calcium Level 8.1L CBC/BMP Laboratory Tests 08/19/18 05:27 Red Blood Count 2.94 L, Mean Corpuscular Volume 95.9, Mean Corpuscular Hemoglobin 30.3, Mean Corpuscular Hemoglobin Concent 31.6 L, Red Cell Distribution Width 14.0, Calcium Level 8.1 L Microbiology Microbiology 08/15/18 Blood Culture - Preliminary, Resulted No Growth after 72 hours. All specime... 08/15/18 Blood Culture - Preliminary, Resulted No Growth after 72 hours. All specime... ARIELLA BURRIS PA-C Aug 19, 2018 9:02 am Jakub Burgess MD Aug 19, 2018 11:34 pm
[2018-08-19] MEDS: NORCO, ANEXSIA 5/325MG TABLET (HYDROcodone/ACETAMINOPHEN) PO PRN (13:23)
[2018-08-19 14:00] VITALS: BP 98/47
[2018-08-19 18:00] VITALS: BP 143/68
[2018-08-19] MEDS: LIDOCAINE 5% (LIDODERM) PATCH TD SCH (20:03)
[2018-08-19 22:00] VITALS: BP 141/81
[2018-08-20] MEDS: NORCO, ANEXSIA 5/325MG TABLET (HYDROcodone/ACETAMINOPHEN) PO PRN ×4 (03:21→22:58)
[2018-08-20] MEDS: LEVOTHYROXINE 112MCG TABLET (0.112MG) PO SCH (05:14)
[2018-08-20 06:00] VITALS: BP 118/87
[2018-08-20] MEDS: GABAPENTIN 300 MG CAP PO SCH ×3 (08:03→20:21)
[2018-08-20] MEDS: CitaloPRAM (CeleXA) 10 MG TABLET PO SCH (08:04)
[2018-08-20] MEDS: PRIMIDONE 50 MG TAB PO SCH ×2 (08:04→20:21)
[2018-08-20] MEDS: ISOSORBIDE MON. (IMDUR) 30 MG XR TAB PO SCH (08:05)
[2018-08-20] MEDS: QUEtiapine FUMARATE 50 MG TAB PO SCH ×2 (08:05→20:21)
[2018-08-20] MEDS: metFORMIN (GLUCOPHAGE) 500 MG TAB PO SCH ×2 (08:05→17:43)
--- NOTE | 2018-08-20 08:05 | ECGEPIP ---
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
[2018-08-20] MEDS: **NOTE PATIENT COMMENT** MISC XX SCH (08:06)
[2018-08-20] MEDS: RAMIPRIL 5 MG CAP PO SCH (08:17)
--- NOTE | 2018-08-20 09:48 | IPNPDOC ---
Subjective Date Seen The patient was seen on 08/20/18. Subjective Chief Complaint/HPI [place] had been controlling her back pain, but this morning she reports severe right kidney pain. She states she passes some small gravel stones a few days ago. She states she has h/o kidney stones inthe past She also reports severe left great toe pain since admission. Unable to bear weight on this. Has had gout one other time and responded well to [place] Pulmonary: Denies: Dyspnea, Cough Cardiovascular: Denies: Chest Pain, Palpitations, Orthopnea Gastrointestinal: Denies: Nausea, Vomiting, Abdominal Pain, Diarrhea, Constipation Genitourinary: Reports: Dysuria, Other Symptoms (right kidney pain) Musculoskeletal: Reports: Back Pain, Foot Pain Objective Physical Examination General Exam: Positive: Alert, Mild Distress (pain tan movement -laying flat in bed this morning) ENT Exam: Positive: Mucous membr. moist/pink Chest Exam: Positive: Clear to auscultation, Normal air movement Heart Exam: Positive: Rate Normal, Irregular Rhythm (Frequent ectopic beats in regular pattern suggesting bigeminy), Normal S1, Normal S2 Abdomen Exam: Positive: Normal bowel sounds, Soft, Other (Right CVA tenderness); Negative: Tenderness Extremity Exam: Positive: Tenderness (Slightly swollen, erythematous, exquisitely tender, ); Negative: Edema Neuro Exam: Positive: Normal Speech Psych Exam: Positive: Mental status NL, Mood NL Assessment /Plan Problems (1) Intractable low back pain Onset Date: 03/22/2014 Status: Acute Response to Treatment: Stable, Improving Problem Specific Plan: Monitor Clinically, Repeat Labs Problem Text: 08/20 - Her back pain was working fairly well for her back pain. Getting PT later this am. May need pain management to revisit if [place] not co ntrolled 08/19 pts SCHEDULING ANALYST use increased yesterday and she wasn't given [place]. Will d/c SCHEDULING ANALYST, and enc nursing to utilize [place]. PT to see today. 08/18 Pt no longer using SCHEDULING ANALYST but controlled with [place]. Enc continued use, will start PT, pt and nursing aware. (2) Acute gout Status: Acute Problem Text: 08/20 - Acute Right great toe pain, tenderness, swelling, erythema - consistent with acute gout Start Colchicine (3) Kidney pain Status: Acute Problem Text: Right kidney pain, dysuria - h/o stones Get U/A, U/C Get labs today and consider renal US (4) Hypotension, iatrogenic Onset Date: 03/22/2014 Status: Resolved Problem Specific Plan: Monitor Clinically Problem Text: Lisinopril held - d/C this for now (5) Diabetes mellitus Status: Chronic Response to Treatment: Stable Problem Text: Metformin B/S stable - d/c FSBS (6) Irregular cardiac rhythm Status: Acute Problem Text: rate controlled - Exam suggests frequent ectopic beats - possibly bigeminy - Get EKG. labs including electrolytes ordered Plan/VTE VTE Prophylaxis Ordered?: Yes (start Lovenox) Plan Therapy: PT, OT Family Medicine Attending Note: I saw and examined Ms. Pollard, discussed with Rosa Ward PA-C agree with her note as documented. Her back may be getting a little better, she seems to have developed acute gout since yesterday. This is not too much is surprised that she has frequent uric acid kidney stones. We are treating her for gout and we'll see where we go from there. 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) VS, I&O, 24H, Fishbone Vital Signs/I&O Vital Signs Date Time Temp Pulse Resp B/P (MAP) Pulse Ox O2 Delivery O2 Flow Rate FiO2 08/20/18 08:17 120/82 08/20/18 08:04 18 08/20/18 06:00 96.9 84 99 Nasal Cannula 2.0 I&O- Last 24 Hours up to 6 AM 08/20/18 06:00 Intake Total 220 ml Output Total 650 ml Balance -430 ml Laboratory Data 24H LABS Laboratory Tests 2 08/19/18 12:13: Bedside Glucose (Misc Panel) 118H 08/19/18 16:54: Bedside Glucose (Misc Panel) 124H 08/19/18 20:03: Bedside Glucose (Misc Panel) 130H 08/20/18 05:50: Bedside Glucose (Misc Panel) 126H Microbiology Microbiology 08/15/18 Blood Culture - Preliminary, Resulted No Growth after 72 hours. All specime... 08/15/18 Blood Culture - Preliminary, Resulted No Growth after 72 hours. All specime... CORIN COX PA-C Aug 20, 2018 9:48 am Jakub Burgess MD Aug 22, 2018 2:39 pm
[2018-08-20 10:40] LABS: HEMATOCRIT 31.4 % (36.0-47.0); HEMOGLOBIN 10.2 g/dl (12.0-15.5); MEAN CORPUSCULAR HEMOGLOBIN 30.7 pg (27.0-33.0); MEAN CORPUSCULAR HGB CONC 32.5 g/dl (32.0-36.5); MEAN CORPUSCULAR VOLUME 94.6 fl (80.0-96.0); PLATELET COUNT, AUTOMATED 184 10^3/uL (150-450); RED BLOOD COUNT 3.32 10^6/uL (4.00-5.40); WHITE BLOOD COUNT 7.4 10^3/uL (4.0-10.0)
[2018-08-20] MEDS: COLCHICINE 0.6 MG TAB PO SCH ×2 (11:00→20:21)
[2018-08-20 11:09] LABS: ALBUMIN 3.2 GM/DL (3.2-5.2); ALT/SGPT 25 U/L (12-78); BILIRUBIN,TOTAL 0.6 MG/DL (0.2-1.0); BLOOD UREA NITROGEN 14 MG/DL (7-18); CALCIUM LEVEL 8.8 MG/DL (8.8-10.2); CARBON DIOXIDE LEVEL 32 MEQ/L (21-32); CHLORIDE LEVEL 98 MEQ/L (98-107); CREATININE FOR GFR 0.78 MG/DL (0.55-1.30); GLOMERULAR FILTRATION RATE > 60.0 (>39); GLUCOSE, FASTING 177 MG/DL (70-100); POTASSIUM SERUM 3.9 MEQ/L (3.5-5.1); SODIUM LEVEL 136 MEQ/L (136-145); TOTAL PROTEIN 6.8 GM/DL (6.4-8.2)
[2018-08-20 12:02] LABS: URIC ACID 4.5 MG/DL (2.6-6.0)
[2018-08-20 14:00] VITALS: BP 128/69
[2018-08-20] MEDS: LIDOCAINE 5% (LIDODERM) PATCH TD SCH (20:21)
[2018-08-20 22:00] VITALS: BP 154/69
[2018-08-21] MEDS: LEVOTHYROXINE 112MCG TABLET (0.112MG) PO SCH (05:34)
[2018-08-21] MEDS: NORCO, ANEXSIA 5/325MG TABLET (HYDROcodone/ACETAMINOPHEN) PO PRN ×3 (05:34→18:35)
[2018-08-21 06:00] VITALS: BP 144/63
[2018-08-21 06:25] LABS: BASO % 0.3 % (0.0-1.0); EOS # 0.3 10^3/uL (0.0-0.50); HEMATOCRIT 28.3 % (36.0-47.0); HEMOGLOBIN 9.1 g/dl (12.0-15.5); LYMPH # 2.8 10^3/uL (1.5-4.5); LYMPH % 47.1 % (24.0-44.0); MEAN CORPUSCULAR HGB CONC 32.2 g/dl (32.0-36.5); MEAN CORPUSCULAR VOLUME 93.4 fl (80.0-96.0); MONO # 0.8 10^3/uL (0.0-0.8); MONO % 12.7 % (0.0-5.0); NEUTROPHILS # 2.1 10^3/uL (1.8-7.7); NEUTROPHILS % 34.6 % (36.0-66.0); PLATELET COUNT, AUTOMATED 175 10^3/uL (150-450); RED BLOOD COUNT 3.03 10^6/uL (4.00-5.40)
[2018-08-21 06:47] LABS: ALBUMIN 2.7 GM/DL (3.2-5.2); BLOOD UREA NITROGEN 14 MG/DL (7-18); CALCIUM LEVEL 8.4 MG/DL (8.8-10.2); CARBON DIOXIDE LEVEL 31 MEQ/L (21-32); CHLORIDE LEVEL 100 MEQ/L (98-107); CREATININE FOR GFR 0.68 MG/DL (0.55-1.30); GLOMERULAR FILTRATION RATE > 60.0 (>39); GLUCOSE, FASTING 105 MG/DL (70-100); PHOSPHORUS LEVEL 2.9 MG/DL (2.5-4.9); POTASSIUM SERUM 3.7 MEQ/L (3.5-5.1); SODIUM LEVEL 138 MEQ/L (136-145); URIC ACID 3.7 MG/DL (2.6-6.0)
[2018-08-21] MEDS: **NOTE PATIENT COMMENT** MISC XX SCH (09:00)
[2018-08-21] MEDS: PRIMIDONE 50 MG TAB PO SCH ×2 (09:39→20:06)
[2018-08-21] MEDS: GABAPENTIN 300 MG CAP PO SCH ×3 (09:39→20:06)
[2018-08-21] MEDS: CitaloPRAM (CeleXA) 10 MG TABLET PO SCH (09:39)
[2018-08-21] MEDS: COLCHICINE 0.6 MG TAB PO SCH ×2 (09:39→20:06)
[2018-08-21] MEDS: QUEtiapine FUMARATE 50 MG TAB PO SCH ×2 (09:40→20:06)
[2018-08-21] MEDS: ISOSORBIDE MON. (IMDUR) 30 MG XR TAB PO SCH (09:40)
[2018-08-21] MEDS: metFORMIN (GLUCOPHAGE) 500 MG TAB PO SCH ×2 (09:40→17:10)
--- NOTE | 2018-08-21 09:47 | IPNPDOC ---
Subjective Date Seen The patient was seen on 08/21/18. Subjective Chief Complaint/HPI Pt reports that she is about the same today as yesterday. Her pain is better controlled than it was when she came in. She is also getting around a little better. She states that she did pretty well getting washed up in her bedside chair this morning. General: Denies: Fatigue Constitutional: Denies: Chills, Fever Skin: Denies: Rash Pulmonary: Denies: Dyspnea, Cough Cardiovascular: Denies: Chest Pain, Palpitations Gastrointestinal: Denies: Nausea, Vomiting, Diarrhea Musculoskeletal: Reports: Back Pain, Leg Pain; Denies: Neck Pain Neurological: Reports: Weakness Objective Physical Examination General Exam: Positive: Alert, Cooperative, No Acute Distress; Negative: Mild Distress ENT Exam: Positive: Mucous membr. moist/pink Chest Exam: Positive: Clear to auscultation, Normal air movement Heart Exam: Positive: Rate Normal, Irregular Rhythm (Frequent ectopic beats in regular pattern suggesting bigeminy), Normal S1, Normal S2 Abdomen Exam: Positive: Normal bowel sounds, Soft, Other (Right CVA tenderness); Negative: Tenderness Extremity Exam: Negative: Edema Neuro Exam: Positive: Normal Speech Psych Exam: Positive: Mental status NL, Mood NL Assessment /Plan Problems (1) Intractable low back pain Onset Date: 03/22/2014 Status: Acute Response to Treatment: Stable, Improving Problem Specific Plan: Monitor Clinically, Repeat Labs Problem Text: 08/21 Cont with [place] PO, she looks good this morning. She did well with PT yesterday who will see her again today. She has a ways to go in regards to strength recovery for d/c as she lives with her disabled , they have minimal home support. 08/20 - Her back pain was working fairly well for her back pain. Getting PT later this am. May need pain management to revisit if [place] not controlled 08/19 pts CASHIER HOST/HOSTESS use increased yesterday and she wasn't given [place]. Will d/c CASHIER HOST/HOSTESS, and enc nursing to utilize [place]. PT to see today. 08/18 Pt no longer using CASHIER HOST/HOSTESS but controlled with [place]. Enc continued use, will start PT, pt and nursing aware. (2) Acute gout Status: Acute Problem Text: 08/21 improved today. 08/20 - Acute Right great toe pain, tenderness, swelling, erythema - consistent with acute gout Start Colchicine (3) Kidney pain Status: Acute Problem Text: Right kidney pain, dysuria - h/o stones Get U/A, U/C Get labs today and consider renal US (4) Hypotension, iatrogenic Onset Date: 03/22/2014 Status: Resolved Problem Specific Plan: Monitor Clinically Problem Text: Lisinopril held - d/C this for now (5) Diabetes mellitus Status: Chronic Response to Treatment: Stable Problem Text: Metformin B/S stable - d/c FSBS (6) Irregular cardiac rhythm Status: Acute Problem Text: 08/21 she was on tele with frequent ectopy 08/20 rate controlled - Exam suggests frequent ectopic beats - possibly bigeminy - Get EKG. labs including electrolytes ordered Plan/VTE VTE Prophylaxis Ordered?: Yes (start Lovenox) Plan Therapy: PT, OT Family Medicine Attending Note: I saw and examined Ms. Pollard, discussed with ANTOLIN Tello. Agree with her note as documented. The patient's gout seems to be coming under control with the colchicine. She continues to have significant back pain, but is working through this to participate with therapy. The nurses are pleased with her functional improvement. I am concerned because the patient lives at home with her disabled . I do think she may need some rehabilitation before she goes home. 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) VS, I&O, 24H, Fishbone Vital Signs/I&O Vital Signs Date Time Temp Pulse Resp B/P (MAP) Pulse Ox O2 Delivery O2 Flow Rate FiO2 08/21/18 06:04 18 08/21/18 06:00 96.8 73 144/63 (90) 95 Room Air 08/20/18 14:00 2.0 I&O- Last 24 Hours up to 6 AM 08/21/18 05:59 Intake Total 1500 ml Output Total 1100 ml Balance 400 ml Laboratory Data 24H LABS Laboratory Tests 2 08/20/18 10:21: Nucleated Red Blood Cells % (auto) 0.0, Anion Gap 6L, Glomerular Filtration Rate > 60.0, Blood Urea Nitrogen 14, Creatinine 0.78, Sodium Level 136, Potassium Level 3.9, Chloride Level 98, Carbon Dioxide Level 32, Calcium Level 8.8, Aspa rtate Amino Transf (AST/SGOT) 23, Alanine Aminotransferase (ALT/SGPT) 25, Alkaline Phosphatase 71, Total Bilirubin 0.6, Uric Acid 4.5, Total Protein 6.8, Albumin 3.2, Albumin/Globulin Ratio 0.89L 08/20/18 11:44: Bedside Glucose (Misc Panel) 145H 08/20/18 16:55: Bedside Glucose (Misc Panel) 132H 08/21/18 05:36: Nucleated Red Blood Cells % (auto) 0.0, Anion Gap 7L, Glomerular Filtration Rate > 60.0, Blood Urea Nitrogen 14, Creatinine 0.68, Sodium Level 138, Potassium Level 3.7, Chloride Level 100, Carbon Dioxide Level 31, Calcium Level 8.4L, Uric Acid 3.7, Albumin 2.7L, Immature Granulocyte % (Auto) 0.3, White Blood Count 6.0, Red Blood Count 3.03L, Hemoglobin 9.1L, Hematocrit 28.3L, Mean Corpuscular Volume 93.4, Mean Corpuscular Hemoglobin 30.0, Mean Corpuscular Hemoglobin Concent 32.2, Red Cell Distribution Width 13.4, Platelet Count 175, Neutrophils (%) (Auto) 34.6L, Lymphocytes (%) (Auto) 47.1H, Monocytes (%) (Auto) 12.7H, Eosinophils (%) (Auto) 5.0H, Basophils (%) (Auto) 0.3, Neutrophils # (Auto) 2.1, Lymphocytes # (Auto) 2.8, Monocytes # (Auto) 0.8, Eosinophils # (Auto) 0.3, Basophils # (Auto) 0.0, Phosphorus Level 2.9 CBC/BMP Laboratory Tests 08/20/18 10:21 Red Blood Count 3.32 L, Mean Corpuscular Volume 94.6, Mean Corpuscular Hemoglobin 30.7, Mean Corpuscular Hemoglobin Concent 32.5, Red Cell Distribution Width 13.6, Calcium Level 8.8, Aspartate Amino Transf (AST/SGOT) 23, Alanine Aminotransferase (ALT/SGPT) 25, Alkaline Phosphatase 71, Total Bilirubin 0.6, Uric Acid 4.5, Total Protein 6.8, Albumin 3.2 08/21/18 05:36 Red Blood Count 3.03 L, Mean Corpuscular Volume 93.4, Mean Corpuscular Hemoglobin 30.0, Mean Corpuscular Hemoglobin Concent 32.2, Red Cell Distribution Width 13.4, Uric Acid 3.7, Neutrophils (%) (Auto) 34.6 L, Lymphocytes (%) (Auto) 47.1 H, Monocytes (%) (Auto) 12.7 H, Eosinophils (%) (Auto) 5.0 H, Basophils (%) (Auto) 0.3, Neutrophils # (Auto) 2.1, Lymphocytes # (Auto) 2.8, Monocytes # (Auto) 0.8, Eosinophils # (Auto) 0.3, Basophils # (Auto) 0.0, Anion Gap 7 L Microbiology Microbiology 08/15/18 Blood Culture - Final, Complete NO GROWTH AFTER 5 DAYS 08/15/18 Blood Culture - Final, Complete NO GROWTH AFTER 5 DAYS ARIELLA BURRIS PA-C Aug 21, 2018 9:47 am Jakub Burgess MD Aug 22, 2018 2:41 pm
--- NOTE | 2018-08-21 12:14 | ECGEPIP ---
Stationary ECG Study [facility] Test Date: 2018-08-20 Pat Name: MARIAH BARAJAS Department: Room: [place] [address] Gender: F Hand Tile Maker: julian : 1940 Requested By: Jakub Ambrose Order Number: [id number] Reading MD: Joe Mackenzie Measurements Intervals [place] Rate: 119 P: 81 [place]: 167 QRS: 56 QRSD: 79 T: 55 QT: 306 QTc: 431 Interpretive Statements SINUS TACHYCARDIA WITH FREQUENT SUPRAVENTRICULAR PREMATURE COMPLEXES rate increased from tracing done 08-20-18 No ventricular ectopy noted Nonspecific ST-T wave abnormalities Electronically Signed On 08-21-2018 12:07:09 EST by Joe Mackenzie
--- NOTE | 2018-08-21 12:14 | ECGEPIP ---
Stationary ECG Study [facility] Test Date: 2018-08-20 Pat Name: MARIAH BARAJAS Department: Room: [place] [address] Gender: F Addiction Specialist: ANGELICA : 1940 Requested By: CORIN Marx PA-C Order Number: [id number] Reading MD: Joe Mackenzie Measurements Intervals [place] Rate: 103 P: 54 [place]: 149 QRS: 25 QRSD: 84 T: 50 QT: 333 QTc: 436 Interpretive Statements SINUS TACHYCARDIA WITH FREQUENT VENTRICULAR PREMATURE COMPLEXES ABNORMAL RHYTHM ECG Lead V6 absent on tracing Electronically Signed On 08-21-2018 11:53:06 EST by Joe Mackenzie
[2018-08-21 14:00] VITALS: BP 154/92
[2018-08-21] MEDS: ENOXAPARIN 40 MG/0.4 ML SYRINGE (J1650) SC SCH (16:26)
[2018-08-21] MEDS: LIDOCAINE 5% (LIDODERM) PATCH TD SCH (20:06)
[2018-08-21 22:00] VITALS: BP 128/63
[2018-08-22] MEDS: NORCO, ANEXSIA 5/325MG TABLET (HYDROcodone/ACETAMINOPHEN) PO PRN ×4 (00:25→20:18)
[2018-08-22] MEDS: LEVOTHYROXINE 112MCG TABLET (0.112MG) PO SCH (05:02)
[2018-08-22 05:36] LABS: BILIRUBIN, URINE MANUAL NEGATIVE (NEGATIVE); GLUCOSE, URINE (UA) MANUAL NEGATIVE (NEGATIVE); KETONE, URINE MANUAL NEGATIVE (NEGATIVE); UROBILINOGEN, URINE MANUAL NORMAL (NORMAL)
[2018-08-22 05:46] LABS: BACTERIA, URINE LARGE AMOUNT; HYALINE CAST, URINE NONE SEEN /lpf (0-1); SQUAMOUS EPITHELIAL CELL URINE SMALL AMOUNT /hpf (SMALL AMT)
[2018-08-22 05:47] LABS: TRANSITIONAL EPI CELLS, URINE SMALL AMOUNT /hpf
[2018-08-22 06:00] VITALS: BP 138/60
[2018-08-22 07:01] LABS: HEMATOCRIT 28.4 % (36.0-47.0); HEMOGLOBIN 9.4 g/dl (12.0-15.5); MEAN CORPUSCULAR HEMOGLOBIN 31.4 pg (27.0-33.0); MEAN CORPUSCULAR HGB CONC 33.1 g/dl (32.0-36.5); PLATELET COUNT, AUTOMATED 203 10^3/uL (150-450); RED BLOOD COUNT 2.99 10^6/uL (4.00-5.40); WHITE BLOOD COUNT 5.8 10^3/uL (4.0-10.0)
[2018-08-22 07:11] LABS: BLOOD UREA NITROGEN 15 MG/DL (7-18); CALCIUM LEVEL 8.4 MG/DL (8.8-10.2); CARBON DIOXIDE LEVEL 31 MEQ/L (21-32); CHLORIDE LEVEL 101 MEQ/L (98-107); CREATININE FOR GFR 0.72 MG/DL (0.55-1.30); GLOMERULAR FILTRATION RATE > 60.0 (>39); GLUCOSE, FASTING 114 MG/DL (70-100); POTASSIUM SERUM 3.8 MEQ/L (3.5-5.1); SODIUM LEVEL 138 MEQ/L (136-145)
[2018-08-22] MEDS: metFORMIN (GLUCOPHAGE) 500 MG TAB PO SCH ×2 (08:10→17:39)
[2018-08-22] MEDS: ENOXAPARIN 40 MG/0.4 ML SYRINGE (J1650) SC SCH (08:10)
[2018-08-22] MEDS: COLCHICINE 0.6 MG TAB PO SCH ×3 (08:10→20:06)
[2018-08-22] MEDS: PRIMIDONE 50 MG TAB PO SCH ×2 (08:11→20:03)
[2018-08-22] MEDS: CitaloPRAM (CeleXA) 10 MG TABLET PO SCH (08:11)
[2018-08-22] MEDS: GABAPENTIN 300 MG CAP PO SCH ×3 (08:11→20:03)
[2018-08-22] MEDS: **NOTE PATIENT COMMENT** MISC XX SCH (08:12)
[2018-08-22] MEDS: ISOSORBIDE MON. (IMDUR) 30 MG XR TAB PO SCH (08:12)
[2018-08-22] MEDS: QUEtiapine FUMARATE 50 MG TAB PO SCH ×2 (08:14→20:05)
[2018-08-22] MEDS: CEPHALEXIN 500 MG CAP PO SCH ×2 (12:13→20:05)
[2018-08-22] MEDS: LIDOCAINE 5% (LIDODERM) PATCH TD SCH (20:06)
[2018-08-23] MEDS: LEVOTHYROXINE 112MCG TABLET (0.112MG) PO SCH (05:33)
[2018-08-23] MEDS: NORCO, ANEXSIA 5/325MG TABLET (HYDROcodone/ACETAMINOPHEN) PO PRN ×3 (05:35→23:12)
[2018-08-23 06:00] VITALS: BP 164/70
[2018-08-23] MEDS: CEPHALEXIN 500 MG CAP PO SCH ×2 (08:32→20:37)
[2018-08-23] MEDS: CitaloPRAM (CeleXA) 10 MG TABLET PO SCH (08:32)
[2018-08-23] MEDS: PRIMIDONE 50 MG TAB PO SCH ×2 (08:32→20:37)
[2018-08-23] MEDS: GABAPENTIN 300 MG CAP PO SCH ×3 (08:32→20:38)
[2018-08-23] MEDS: QUEtiapine FUMARATE 50 MG TAB PO SCH ×2 (08:32→20:37)
[2018-08-23] MEDS: **NOTE PATIENT COMMENT** MISC XX SCH (08:33)
[2018-08-23] MEDS: metFORMIN (GLUCOPHAGE) 500 MG TAB PO SCH ×2 (08:33→18:12)
[2018-08-23] MEDS: COLCHICINE 0.6 MG TAB PO SCH ×2 (08:33→20:37)
[2018-08-23] MEDS: ENOXAPARIN 40 MG/0.4 ML SYRINGE (J1650) SC SCH (08:33)
[2018-08-23] MEDS: ISOSORBIDE MON. (IMDUR) 30 MG XR TAB PO SCH (08:33)
[2018-08-23] MEDS ORDERED: NORCO, ANEXSIA 5/325MG TABLET (HYDROcodone/ACETAMINOPHEN) PO PRN (18:30)
[2018-08-23] MEDS ORDERED: NORCO, ANEXSIA 5/325MG TABLET (HYDROcodone/ACETAMINOPHEN) As Ordered ONE (18:43)
[2018-08-23] MEDS: LIDOCAINE 5% (LIDODERM) PATCH TD SCH (20:36)
[2018-08-24] MEDS: NORCO, ANEXSIA 5/325MG TABLET (HYDROcodone/ACETAMINOPHEN) PO PRN ×4 (05:46→20:01)
[2018-08-24] MEDS: LEVOTHYROXINE 112MCG TABLET (0.112MG) PO SCH (05:46)
[2018-08-24 06:00] VITALS: BP 117/56
[2018-08-24 06:43] LABS: HEMATOCRIT 30.2 % (36.0-47.0); HEMOGLOBIN 9.8 g/dl (12.0-15.5); MEAN CORPUSCULAR HEMOGLOBIN 30.8 pg (27.0-33.0); MEAN CORPUSCULAR HGB CONC 32.5 g/dl (32.0-36.5); PLATELET COUNT, AUTOMATED 243 10^3/uL (150-450); RED BLOOD COUNT 3.18 10^6/uL (4.00-5.40); WHITE BLOOD COUNT 6.5 10^3/uL (4.0-10.0)
[2018-08-24] MEDS: CitaloPRAM (CeleXA) 10 MG TABLET PO SCH (09:24)
[2018-08-24] MEDS: GABAPENTIN 300 MG CAP PO SCH ×3 (09:24→20:00)
[2018-08-24] MEDS: CEPHALEXIN 500 MG CAP PO SCH ×2 (09:25→20:01)
[2018-08-24] MEDS: QUEtiapine FUMARATE 50 MG TAB PO SCH ×2 (09:25→20:01)
[2018-08-24] MEDS: metFORMIN (GLUCOPHAGE) 500 MG TAB PO SCH ×2 (09:25→18:06)
[2018-08-24] MEDS: PRIMIDONE 50 MG TAB PO SCH ×2 (09:25→20:00)
[2018-08-24] MEDS: **NOTE PATIENT COMMENT** MISC XX SCH (09:26)
[2018-08-24] MEDS: ENOXAPARIN 40 MG/0.4 ML SYRINGE (J1650) SC SCH (09:26)
[2018-08-24] MEDS: ISOSORBIDE MON. (IMDUR) 30 MG XR TAB PO SCH (09:28)
[2018-08-24] MEDS: LIDOCAINE 5% (LIDODERM) PATCH TD SCH (20:00)
[2018-08-25] MEDS: NORCO, ANEXSIA 5/325MG TABLET (HYDROcodone/ACETAMINOPHEN) PO PRN ×6 (05:50→21:59)
[2018-08-25] MEDS: LEVOTHYROXINE 112MCG TABLET (0.112MG) PO SCH (05:50)
[2018-08-25 06:00] VITALS: BP 146/65
[2018-08-25 06:22] LABS: IRON (FE) 45 UG/DL (50-170); PERCENT SATURATION 14.7 % (13.2-45.0); TOTAL IRON BINDING CAPACITY 307 UG/DL (250-450); TOTAL PROTEIN 6.4 GM/DL (6.4-8.2)
[2018-08-25] MEDS: metFORMIN (GLUCOPHAGE) 500 MG TAB PO SCH ×2 (08:16→17:30)
[2018-08-25] MEDS: GABAPENTIN 300 MG CAP PO SCH ×3 (08:16→20:02)
[2018-08-25] MEDS: CEPHALEXIN 500 MG CAP PO SCH ×2 (08:16→20:02)
[2018-08-25] MEDS: ENOXAPARIN 40 MG/0.4 ML SYRINGE (J1650) SC SCH (08:16)
[2018-08-25] MEDS: PRIMIDONE 50 MG TAB PO SCH ×2 (08:17→20:02)
[2018-08-25] MEDS: ISOSORBIDE MON. (IMDUR) 30 MG XR TAB PO SCH (08:17)
[2018-08-25] MEDS: CitaloPRAM (CeleXA) 10 MG TABLET PO SCH (08:17)
[2018-08-25] MEDS: QUEtiapine FUMARATE 50 MG TAB PO SCH ×2 (08:17→20:02)
[2018-08-25] MEDS: **NOTE PATIENT COMMENT** MISC XX SCH (08:17)
--- NOTE | 2018-08-25 13:40 | DSES ---
[facility]AC[facility] (SNF) SUMMARY DATE OF ADMISSION: 08/15/2018 DATE OF SNF: 08/22/2018 DATE OF DISCHARGE: PRIMARY CARE PROVIDER: Jakub Burgess MD ATTENDING: Today is Jakub Burgess MD. HISTORY: This is a 77-year-old female patient who has a history of chronic back pain who presented to [facility] Emergency Room with intractable low back pain. She was seen in [place] [facility] over and Years for right-sided sciatica. She received Valium, morphine, promethazine and subsequently discharged with those prescriptions. She was then seen on 08/02/2018 for those same symptoms. This time, she was given Valium, intramuscular (IM) Toradol and prednisone, as well as Roxicet. She was sent home for further management and referral with Dr. Moreno. She had an appointment with him on 08/23/2018, although she was unable to remain home with adequate pain control and presented to [facility] Emergency Room, where she was admitted for intractable low back pain. She was continued on gabapentin and started on a patient-controlled analgesia (SAND CAR WORKER), as well as [place] during her hospitalization. She has remained mental status. Her pain has improved. She is actively working with physical therapy. Her SAND CAR WORKER has been discontinued, and she is on oral pain management. She is being placed alternate level of care (ALC) until she is safe to return home. She lives at home with her , who is wheelchair-bound, and she has limited supports at home. Her discharge diagnoses include intractable low back pain with degenerative disc disease, acute gout, kidney pain, hypotension, diabetes mellitus type 2. Discharge medications and plan will be summarized at time of discharge from the hospital. edited: 08/26/2018 0825 tkf MTDD
[2018-08-25] MEDS: LIDOCAINE 5% (LIDODERM) PATCH TD SCH (20:02)
[2018-08-26] MEDS: NORCO, ANEXSIA 5/325MG TABLET (HYDROcodone/ACETAMINOPHEN) PO PRN ×5 (03:59→22:26)
[2018-08-26] MEDS: LEVOTHYROXINE 112MCG TABLET (0.112MG) PO SCH (05:34)
[2018-08-26 06:00] VITALS: BP 99/53
[2018-08-26] MEDS: metFORMIN (GLUCOPHAGE) 500 MG TAB PO SCH ×2 (08:00→17:58)
[2018-08-26] MEDS: CitaloPRAM (CeleXA) 10 MG TABLET PO SCH (08:24)
[2018-08-26] MEDS: CEPHALEXIN 500 MG CAP PO SCH ×2 (08:24→19:46)
[2018-08-26] MEDS: GABAPENTIN 300 MG CAP PO SCH ×3 (08:24→19:46)
[2018-08-26] MEDS: PRIMIDONE 50 MG TAB PO SCH ×2 (08:24→19:47)
[2018-08-26] MEDS: QUEtiapine FUMARATE 50 MG TAB PO SCH ×2 (08:25→19:47)
[2018-08-26] MEDS: **NOTE PATIENT COMMENT** MISC XX SCH (08:25)
[2018-08-26] MEDS: ENOXAPARIN 40 MG/0.4 ML SYRINGE (J1650) SC SCH (08:25)
[2018-08-26] MEDS: ISOSORBIDE MON. (IMDUR) 30 MG XR TAB PO SCH (08:26)
[2018-08-26 10:23] LABS: ALBUMIN 3.23 GM/DL (3.29-5.55); ALBUMIN % 50.5 % (55.8-66.1); ALPHA-1-GLOBULIN % 5.7 % (2.9-4.9); ALPHA-1-GLOBULINS 0.36 GM/DL (0.17-0.41); ALPHA-2-GLOBULINS 1.02 GM/DL (0.42-0.99); BETA-1-GLOBULINS 0.44 GM/DL (0.28-0.60); BETA-1-GLOBULINS % 6.8 % (4.7-7.2); BETA-2-GLOBULINS 0.42 GM/DL (0.19-0.55); BETA-2-GLOBULINS % 6.5 % (3.2-6.5); GAMMA GLOBULIN % 14.5 % (11.1-18.8); GAMMA GLOBULINS 0.93 GM/DL (0.65-1.58)
--- NOTE | 2018-08-26 11:11 | IPNPDOC ---
Subjective Date Seen The patient was seen on 08/26/18. Subjective Chief Complaint/HPI Patient reports her pain remains 8-10/10. Severe in right low back and right hip radiating into buttock Constitutional: Denies: Chills, Fever Cardiovascular: Denies: Chest Pain, Palpitations Gastrointestinal: Denies: Nausea, Vomiting, Abdominal Pain, Diarrhea, Constipation Genitourinary: Reports: Dysuria (chronic intermittent dysuria - unchanged from baseline) Objective Physical Examination General Exam: Positive: Alert, Moderate Distress (laying on her side unable to move due to pain) ENT Exam: Positive: Mucous membr. moist/pink Chest Exam: Positive: Clear to auscultation, Normal air movement Heart Exam: Positive: Rate Normal, Irregular Rhythm (Frequent ectopic beats in regular pattern suggesting bigeminy), Normal S1, Normal S2 Abdomen Exam: Positive: Normal bowel sounds, Soft, Other (Right CVA tenderness); Negative: Tenderness Extremity Exam: Positive: Other (Tender right lower parispinal muscles and right hip and buttock. ) Skin Exam: Negative: Rash Neuro Exam: Positive: Normal Speech Psych Exam: Positive: Mental status NL, Mood NL Assessment /Plan Problems (1) Intractable low back pain Onset Date: 03/22/2014 Status: Acute Response to Treatment: Stable, Improving Problem Specific Plan: Monitor Clinically, Repeat Labs Problem Text: 08/26 - Right lower back pain severe this morning - Not controlled with [place] x 2 this am. ESR has risen to 60 (was normal 08/25) SPEP suggests inflammation GEt CBCD and follow ESR trend - consider B/C and repeat MRI spine I have requested pain clinic consult as her pain seems to be an exacerbation of her usual acute back pain issues 08/21 Cont with [place] PO, she looks good this morning. She did well with PT yesterday who will see her again today. She has a ways to go in regards to strength recovery for d/c as she lives with her disabled , they have minimal home support. 08/20 - Her back pain was working fairly well for her back pain. Getting PT later this am. May need pain management to revisit if [place] not controlled 08/19 pts ESTIMATING MANAGER use increased yesterday and she wasn't given [place]. Will d/c ESTIMATING MANAGER, and enc nursing to utilize [place]. PT to see today. 08/18 Pt no longer using ESTIMATING MANAGER but controlled with [place]. Enc continued use, will start PT, pt and nursing aware. (2) Acute gout Status: Acute Problem Text: 08/26 - Treated with Col[place]icine with improvment in toe pain 08/21 improved today. 08/20 - Acute Right great toe pain, tenderness, swelling, erythema - consistent with acute gout Start Colchicine (3) Kidney pain Status: Acute Problem Text: Right kidney pain, dysuria - h/o stones Get U/A, U/C Get labs today and consider renal US (4) Hypotension, iatrogenic Onset Date: 03/22/2014 Status: Resolved Problem Specific Plan: Monitor Clinically Problem Text: Imdur held this am Lisinopril held - d/C this for now (5) Diabetes mellitus Status: Chronic Response to Treatment: Stable Problem Text: Metformin B/S stable - d/c FSBS (6) Irregular cardiac rhythm Status: Acute Problem Text: 08/21 she was on tele with frequent ectopy 08/20 rate controlled - Exam suggests frequent ectopic beats - possibly bigeminy - Get EKG. labs including electrolytes ordered Plan/VTE VTE Prophylaxis Ordered?: Yes (start Lovenox) Plan Therapy: PT, OT VS, I&O, 24H, Fishbone Vital Signs/I&O Vital Signs Date Time Temp Pulse Resp B/P (MAP) Pulse Ox O2 Delivery O2 Flow Rate FiO2 08/26/18 08:55 16 08/26/18 08:26 99/53 08/26/18 06:00 96.6 74 95 Room Air 08/22/18 09:00 2.0 I&O- Last 24 Hours up to 6 AM 08/26/18 06:00 Intake Total 1890 ml Output Total 600 ml Balance 1290 ml Laboratory Data Microbiology Microbiology 08/22/18 Urine Culture - Final, Complete Escherichia Coli CORIN COX PA-C Aug 26, 2018 11:11
[2018-08-26 12:10] LABS: BASO % 0.2 % (0.0-1.0); EOS # 0.2 10^3/uL (0.0-0.50); EOS % 4.1 % (0.0-3.0); HEMATOCRIT 29.1 % (36.0-47.0); HEMOGLOBIN 9.6 g/dl (12.0-15.5); LYMPH # 2.8 10^3/uL (1.5-4.5); MEAN CORPUSCULAR HEMOGLOBIN 31.2 pg (27.0-33.0); MEAN CORPUSCULAR VOLUME 94.5 fl (80.0-96.0); MONO # 0.4 10^3/uL (0.0-0.8); MONO % 8.2 % (0.0-5.0); NEUTROPHILS # 1.9 10^3/uL (1.8-7.7); NEUTROPHILS % 35.3 % (36.0-66.0); PLATELET COUNT, AUTOMATED 258 10^3/uL (150-450); RED BLOOD COUNT 3.08 10^6/uL (4.00-5.40); WHITE BLOOD COUNT 5.4 10^3/uL (4.0-10.0)
[2018-08-26 12:34] LABS: ALBUMIN 2.9 GM/DL (3.2-5.2); ALT/SGPT 25 U/L (12-78); BILIRUBIN,TOTAL 0.1 MG/DL (0.2-1.0); BLOOD UREA NITROGEN 14 MG/DL (7-18); CALCIUM LEVEL 8.3 MG/DL (8.8-10.2); CARBON DIOXIDE LEVEL 29 MEQ/L (21-32); CHLORIDE LEVEL 103 MEQ/L (98-107); CREATININE FOR GFR 0.65 MG/DL (0.55-1.30); GLOMERULAR FILTRATION RATE > 60.0 (>39); GLUCOSE, FASTING 110 MG/DL (70-100); POTASSIUM SERUM 3.9 MEQ/L (3.5-5.1); SODIUM LEVEL 139 MEQ/L (136-145); TOTAL PROTEIN 6.6 GM/DL (6.4-8.2)
[2018-08-26 12:35] LABS: ERYTHROCYTE SEDIMENTATION RATE 58 mm/hr (0-30)
[2018-08-26 12:48] VITALS: BP 150/70
[2018-08-26] MEDS: LIDOCAINE 5% (LIDODERM) PATCH TD SCH (19:47)
[2018-08-27 00:06] LABS: ANA (HEP2) Negative (.); CYCLIC CITRULLINATED PEPTIDE 121 units (0-19)
[2018-08-27] MEDS: NORCO, ANEXSIA 5/325MG TABLET (HYDROcodone/ACETAMINOPHEN) PO PRN ×4 (03:31→17:03)
[2018-08-27] MEDS: LEVOTHYROXINE 112MCG TABLET (0.112MG) PO SCH (05:15)
[2018-08-27 06:00] VITALS: BP 164/70
[2018-08-27 06:01] LABS: HEMATOCRIT 30.3 % (36.0-47.0); HEMOGLOBIN 9.6 g/dl (12.0-15.5); MEAN CORPUSCULAR HEMOGLOBIN 30.6 pg (27.0-33.0); MEAN CORPUSCULAR HGB CONC 31.7 g/dl (32.0-36.5); MEAN CORPUSCULAR VOLUME 96.5 fl (80.0-96.0); PLATELET COUNT, AUTOMATED 266 10^3/uL (150-450); RED BLOOD COUNT 3.14 10^6/uL (4.00-5.40); WHITE BLOOD COUNT 5.6 10^3/uL (4.0-10.0)
[2018-08-27] MEDS: CEPHALEXIN 500 MG CAP PO SCH (08:20)
[2018-08-27] MEDS: QUEtiapine FUMARATE 50 MG TAB PO SCH ×2 (08:20→21:15)
[2018-08-27] MEDS: GABAPENTIN 300 MG CAP PO SCH ×3 (08:20→21:15)
[2018-08-27] MEDS: PRIMIDONE 50 MG TAB PO SCH ×2 (08:20→21:15)
[2018-08-27] MEDS: ENOXAPARIN 40 MG/0.4 ML SYRINGE (J1650) SC SCH (08:20)
[2018-08-27] MEDS: metFORMIN (GLUCOPHAGE) 500 MG TAB PO SCH ×2 (08:20→17:03)
[2018-08-27] MEDS: CitaloPRAM (CeleXA) 10 MG TABLET PO SCH (08:20)
[2018-08-27] MEDS: ISOSORBIDE MON. (IMDUR) 30 MG XR TAB PO SCH (08:21)
[2018-08-27] MEDS: **NOTE PATIENT COMMENT** MISC XX SCH (08:22)
--- NOTE | 2018-08-27 08:59 | IPNPDOC ---
Subjective Date Seen The patient was seen on 08/27/18. Subjective Chief Complaint/HPI Patient is examined at bedside. She reports she still has 10/10 sharp lower back pain on right lumbar region radiating all the way down to right buttock and right ankle. Reports pain at baseline only at lower back region rating 8-10 out of 10. Said movement makes pain worse; reports no medication helped with pain before. Upon questioning, she stated she received a back injection from Dr. Cobb a few years ago, pain decreased to 2/10, but only helped for about 2 months then pain returns. She also reports pain radiating to inguinal area. She reports the pain is similar to when she had nephrolithiasis before. Reports chills, urinary urgency, frequency, an dysuria. Denies fever, nausea, vomiting, abdominal pain.Pt also denies dysphagia General: Reports: Chills, Other Symptoms (Decreased appetitie); Denies: Normal Appetite Constitutional: Reports: Chills ENT: Reports: Head Aches (reports think it's d/t body pain); Denies: Dysphagia Pulmonary: Denies: Dyspnea, Pleuritic Chest Pain Cardiovascular: Denies: Chest Pain, Palpitations Gastrointestinal: Denies: Nausea, Vomiting, Abdominal Pain, Diarrhea Genitourinary: Reports: Dysuria, Frequency, Other Symptoms (urgency. Suprapbic pain) Musculoskeletal: Reports: Back Pain, Leg Pain, Foot Pain (bilateral) Neurological: Reports: Weakness (left upper and lower extremity weakness. LUE weakness d/t CVA sequalae; RLE weakness d/t pain); Denies: Change in speech Objective Physical Examination General Exam: Positive: Alert, Moderate Distress (laying on her side, minimal movement due to pain) Eye Exam: Positive: Conjunctiva & lids normal; Negative: Sclera icteric ENT Exam: Positive: Atraumatic, Mucous membr. moist/pink Chest Exam: Positive: Clear to auscultation, Normal air movement; Negative: Rales, Rhonchi, Wheezing Heart Exam: Positive: Rate Normal, Regular Rhythm, Normal S1, Normal S2; Negative: Irregular Rhythm Abdomen Exam: Positive: Normal bowel sounds, Soft, Other; Negative: Tenderness Extremity Exam: Positive: Other (Tender right lower parispinal muscles and right hip and buttock. ); Negative: Edema, Swelling Skin Exam: Positive: Nl turgor and temperature, Other skin issue (exposed tophi on left big toe. No erythema or warmth noted in bilateral lower extremities); Negative: Rash Neuro Exam: Positive: Normal Speech, Sensation Intact, Other (Numbness in right ankle region); Negative: Strength at 5/5 X4 ext (+4/5 in right upper extrmities. +4/5 in right lower extremity d/t pain. ) Psych Exam: Positive: Mental status NL, Mood NL, Memory Intact Other physical findings Right CVA tenderness. Tenderness to palpation in right gluteal region Assessment /Plan Problems (1) Intractable low back pain Onset Date: 03/22/2014 Status: Acute Response to Treatment: Stable, Improving Problem Specific Plan: Monitor Clinically, Repeat Labs Problem Text: 08/27 Maybe 09/06 to radiculopathy vs pyelonephritis vs nephrolithiasis. [facility] consult pending. ESR ordered for today to f/u. SPEP pattern indicates acute inflammation. On K-pad, [place], lidoderm patch, and gabapentin. F/u with ESR. Kidney US December 2017 no nephrolithiasis. Consider US kidney d/t UTI with right sided, CVA tenderness, and questionable nephrolithiasis. Not safe for d/c per PT; when safe, d/c to home with services and need home PT. 08/26 - Right lower back pain severe this morning - Not controlled with [place] x 2 this am. ESR has risen to 60 (was normal 08/25) SPEP suggests inflammation GEt CBCD and follow ESR trend - consider B/C and repeat MRI spine I have requested pain clinic consult as her pain seems to be an exacerbation of her usual acute back pain issues 08/21 Cont with [place] PO, she looks good this morning. She did well with PT yesterday who will see her again today. She has a ways to go in regards to strength recovery for d/c as she lives with her disabled , they have minimal home support. 08/20 - Her back pain was working fairly well for her back pain. Getting PT later this am. May need pain management to revisit if [place] not controlled 08/19 pts SENIOR INSPECTOR use increased yesterday and she wasn't given [place]. Will d/c SENIOR INSPECTOR, and enc nursing to utilize [place]. PT to see today. 08/18 Pt no longer using SENIOR INSPECTOR but controlled with [place]. Enc continued use, will start PT, pt and nursing aware. (2) Acute gout Status: Acute Response to Treatment: Controlled Problem Text: 08/27 Continue Colchicine. Tophi exposed. Non erythematous or warm noted. No to minimal swelling in left big toe. ESR ordered; cont to trend 08/26 - Treated with Colchicine with improvment in toe pain 08/21 improved today. 08/20 - Acute Right great toe pain, tenderness, swelling, erythema - consistent with acute gout Start Colchicine (3) Pyelonephritis Status: Acute Problem Text: 08/26 Right CVA tenderness with low back pain; with dysuria. Afebirle w/o leukocytosis; ESR elevated. UA and urine cx 08/22/18 indicates E- coli infection. Blood Cx ordered. Pt already on PO Cephalexin since 08/23/18. Discussed with lab and no Ca Oxalate crystal noted. PMH of recurrent nephrolithiasis since ; renal US December 2017 neg for stone. Day 6 Cephalexin. Renal US as pt questionable for nephrolithiasis. Repeat urine Cx (4) Hypotension, iatrogenic Onset Date: 03/22/2014 Status: Resolved Problem Specific Plan: Monitor Clinically Problem Text: BP 155/65 this morning. Imdur given. Will continue to f/u with vital signs. Lisinopril d/c 08/26 (5) Diabetes mellitus Status: Chronic Response to Treatment: Stable Problem Text: 08/27 Blood glucose stable on BMP, continue home med Metformin 08/26 Metformin B/S stable - d/c FSBS (6) Irregular cardiac rhythm Status: Resolved Response to Treatment: Stable Problem Text: 08/27 HR wnl. Regular rate and rhythm on physical exam 08/21 she was on tele with frequent ectopy 08/20 rate controlled - Exam suggests frequent ectopic beats - possibly bigeminy - Get EKG. labs including electrolytes ordered (7) Hypothyroidism Status: Chronic Problem Text: Free T4 low at 0.77 on08/17/18 with prior T4 wnl; TSH within nor mal range. PMH of hypothyroidism on home med 100 mcg daily since 2011, last picked up 2016. HPt reported being on 112mcg for about a year. Pt on 112 mcg currently. Recheck TSH and T4 Plan/VTE VTE Prophylaxis Ordered?: Yes (Lovenox) Plan Therapy: PT, OT Diagnostics: Repeat Labs in AM, Obtain Cultures Disposition Pain clinic consult pending. Renal US and urine Cx ordered. Still 10/10 lower back pain radiating down to left lower extremity; also radiating to left inguinal region. Exposed tophi on left great toe stable w/o erythema/warmth. VS, I&O, 24H, Fishbone Vital Signs/I&O Vital Signs Date Time Temp Pulse Resp B/P (MAP) Pulse Ox O2 Delivery O2 Flow Rate FiO2 08/27/18 08:22 19 08/27/18 08:21 155/65 08/27/18 06:00 97.0 69 93 08/27/18 04:01 Room Air 08/22/18 09:00 2.0 I&O- Last 24 Hours up to 6 AM 08/27/18 06:00 Intake Total 1050 ml Output Total 1000 ml Balance 50 ml Laboratory Data 24H LABS Laboratory Tests 2 08/26/18 11:40: Immature Granulocyte % (Auto) 0.2, White Blood Count 5.4, Red Blood Count 3.08L, Hemoglobin 9.6L, Hematocrit 29.1L, Mean Corpuscular Volume 94.5, Mean Corpuscular Hemoglobin 31.2, Mean Corpuscular Hemoglobin Concent 33.0, Red Cell Distribution Width 13.6, Platelet Count 258, Neutrophils (%) (Auto) 35.3L, Lymphocytes (%) (Auto) 52.0H, Monocytes (%) (Auto) 8.2H, Eosinophils (%) (Auto) 4.1H, Basophils (%) (Auto) 0.2, Neutrophils # (Auto) 1.9, Lymphocytes # (Auto) 2.8, Monocytes # (Auto) 0.4, Eosinophils # (Auto) 0.2, Basophils # (Auto) 0.0, Nucleated Red Blood Cells % (auto) 0.0, Erythrocyte Sedimentation Rate 58H, Anion Gap 7L, Glomerular Filtration Rate > 60.0, Blood Urea Nitrogen 14, Creatinine 0.65, Sodium Level 139, Potassium Level 3.9, Chloride Level 103, Carbon Dioxide Level 29, Calcium Level 8.3L, Aspartate Amino Transf (AST/SGOT) 19, Alanine Aminotransferase (ALT/SGPT) 25, Alkaline Phosphatase 70, Total Bilirubin 0.1L, Total Protein 6.6, Albumin 2.9L, Albumin/Globulin Ratio 0.78L 08/27/18 05:25: Nucleated Red Blood Cells % (auto) 0.0 CBC/BMP Laboratory Tests 08/26/18 11:40 Red Blood Count 3.08 L, Mean Corpuscular Volume 94.5, Mean Corpuscular Hemoglobin 31.2, Mean Corpuscular Hemoglobin Concent 33.0, Red Cell Distribution Width 13.6, Neutrophils (%) (Auto) 35.3 L, Lymphocytes (%) (Auto) 52.0 H, Monocytes (%) (Auto) 8.2 H, Eosinophils (%) (Auto) 4.1 H, Basophils (%) (Auto) 0.2, Neutrophils # (Auto) 1.9, Lymphocytes # (Auto) 2.8, Monocytes # (Auto) 0.4, Eosinophils # (Auto) 0.2, Basophils # (Auto) 0.0, Calcium Level 8.3 L, Aspartate Amino Transf (AST/SGOT) 19, Alanine Aminotransferase (ALT/SGPT) 25, Alkaline Phosphatase 70, Total Bilirubin 0.1 L, Total Protein 6.6, Albumin 2.9 L 08/27/18 05:25 Red Blood Count 3.14 L, Mean Corpuscular Volume 96.5 H, Mean Corpuscular Hemoglobin 30.6, Mean Corpuscular Hemoglobin Concent 31.7 L, Red Cell Distrib ution Width 13.6 Microbiology Microbiology 08/22/18 Urine Culture - Final, Complete Escherichia Coli SONIYA LILLY DO Aug 27, 2018 08:59
[2018-08-27 09:44] LABS: VITAMIN B12 LEVEL 297 PG/ML (232-1245)
[2018-08-27 10:24] LABS: FREE T4 0.92 NG/DL (0.76-1.46); THYROID STIMULATING HORMONE 0.458 uIU/ML (0.358-3.740)
[2018-08-27 10:43] LABS: ERYTHROCYTE SEDIMENTATION RATE 52 mm/hr (0-30)
--- NOTE | 2018-08-27 17:07 | REP ---
RENAL AND BLADDER ULTRASOUND: Real-time sonographic evaluation of the kidneys is performed and demonstrate both kidneys to be normal in size and echotexture, right kidney measuring 10.1 x 4.7 x 4.1 cm and left kidney 11.5 x 3.5 x 4.8 cm. There is no hydronephrosis bilaterally. There is an extrarenal pelvis on the left. No renal stones or mass seen. The urinary bladder is distended with no mass or calculus. There are bilateral ureteral jets in the urinary bladder with Doppler color evaluation. IMPRESSION: No hydronephrosis. Electronically Signed by James Funez MD 08/27/2018 05:22 P
--- NOTE | 2018-08-27 17:33 | CR ---
DATE OF CONSULTATION: 08/27/2018 REFERRING PHYSICIAN: RICHARD Ward CHIEF COMPLAINT: 1. Right low back pain. 2. Right leg pain. HISTORY OF PRESENT ILLNESS: Ynes is a 77-year-old female who was admitted for acute disabling right low back pain on 08/15/2018. The patient has a long history of chronic low back pain that was well controlled for the most part after having injection therapy with Dr. Moreno a few years ago, until she fell approximately 1 month ago and hit her low back on the bathtub. She was actually scheduled to be seen by Dr. Moreno this past week. She is very uncomfortable today. She reports only a half hour of improvement in pain with her current regimen of hydrocodone 10 mg every 4 hours. She is exquisitely tender over the right sacroiliac joint (SIJ). I did review her MRI imaging that was done recently. She has multilevel disc problems with subsequent spinal stenosis. Discussed medication and treatment options. REVIEW OF SYSTEMS: Denies recent fever or illness. She does report recent diagnosis of urinary tract infection (UTI). History of kidney stones. Has ultrasound of kidneys pending that was done today. CARDIAC: Denies chest pains or shortness of breath. RESPIRATORY: Denies cough or wheeze. GASTROINTESTINAL: Reporting normal bowel movements. GENITOURINARY: Reporting normal urination. NEUROLOGIC: Chronic tremor, right arm. Denies seizure disorder. Remaining 11-point review of systems is negative except as mentioned in history of present illness (HPI). PHYSICAL EXAMINATION: Awake, alert. Appears very uncomfortable. Pain is aggravated with movement. VITAL SIGNS: 97, 69, 20, blood pressure (BP) 164/70, oxygen saturation 93% on room air. CARDIAC: S1, S2, normal rate and rhythm. RESPIRATORY: Lung sounds are clear. Respirations nonlabored. Inspection of spine: Marked tenderness noted over right SIJ area. Muscle strength over right leg markedly weak compared to left. Reporting normal sensation to light touch, lower extremities. ASSESSMENT: 1. Right sacroiliitis. 2. Lumbar disc displacement. 3. Lumbar sacral spondylosis with subsequent spinal stenosis. PLAN: The patient will be nothing by mouth after breakfast on August 28. Hold Lovenox dose for August 28 at 9 a.m.. Have her to pain clinic for right sacroiliac joint steroid block at 2:30 p.m.. May have her morning medications with a sip of water. I have asked for a preoperative checklist to be sent along with the patient's medication listing to the pain center tomorrow. I at this point, due to her uncontrolled pain, would suggest a trial of morphine sulfate instant release 15 mg, one every 6 hours as needed for severe pain. Stop the hydrocodone. Consider addition of a muscle relaxer, i.e., Soma 350 morning and night. Thank you for allowing us to participate in the care of your patient, Ynes Pollard. Should you have any questions or concerns, please do not hesitate to contact me.
[2018-08-27] MEDS ORDERED: VITAMIN D 50,000 UNITS CAPSULE (ERGOCALCIFEROL 1.25MG) PO STA (17:35)
[2018-08-27] MEDS: LIDOCAINE 5% (LIDODERM) PATCH TD SCH (21:15)
[2018-08-28] MEDS: NORCO, ANEXSIA 5/325MG TABLET (HYDROcodone/ACETAMINOPHEN) PO PRN ×4 (02:54→20:34)
[2018-08-28] MEDS: LEVOTHYROXINE 112MCG TABLET (0.112MG) PO SCH (05:30)
[2018-08-28 06:00] VITALS: BP 122/56
[2018-08-28] MEDS: ISOSORBIDE MON. (IMDUR) 30 MG XR TAB PO SCH (08:46)
[2018-08-28] MEDS: QUEtiapine FUMARATE 50 MG TAB PO SCH ×2 (08:46→20:32)
[2018-08-28] MEDS: GABAPENTIN 300 MG CAP PO SCH ×3 (08:46→20:32)
[2018-08-28] MEDS: PRIMIDONE 50 MG TAB PO SCH ×2 (08:46→20:32)
[2018-08-28] MEDS: CitaloPRAM (CeleXA) 10 MG TABLET PO SCH (08:46)
[2018-08-28] MEDS: metFORMIN (GLUCOPHAGE) 500 MG TAB PO SCH ×2 (08:47→18:05)
[2018-08-28] MEDS: **NOTE PATIENT COMMENT** MISC XX SCH (08:48)
[2018-08-28] MEDS: ENOXAPARIN 40 MG/0.4 ML SYRINGE (J1650) SC SCH (08:48)
[2018-08-28] MEDS ORDERED: oxyCODONE 5MG TAB As Ordered ONE (15:52)
[2018-08-28] MEDS ORDERED: diazePAM 5 MG TAB As Ordered ONE (15:52)
[2018-08-28] MEDS ORDERED: LIDOCAINE 1% SDV INJ 30 ML VIAL As Ordered ONE (15:53)
[2018-08-28] MEDS ORDERED: ISOVUE-M 300 61% 15ML VIAL (Q9967) As Ordered ONE (15:53)
[2018-08-28] MEDS ORDERED: TRIAMCINOLONE ACETONIDE SUSP 40 MG/ML VIAL (J3301) As Ordered ONE (15:53)
[2018-08-28] MEDS ORDERED: BUPIVACAINE HCL 0.25% 30 ML VIAL As Ordered ONE (15:53)
[2018-08-28 18:09] VITALS: BP 165/82
[2018-08-28] MEDS: LIDOCAINE 5% (LIDODERM) PATCH TD SCH (20:32)
[2018-08-29] MEDS: NORCO, ANEXSIA 5/325MG TABLET (HYDROcodone/ACETAMINOPHEN) PO PRN ×3 (01:40→10:37)
[2018-08-29 02:55] VITALS: BP 121/78
[2018-08-29] MEDS: LEVOTHYROXINE 112MCG TABLET (0.112MG) PO SCH (05:40)
[2018-08-29 06:00] VITALS: BP 131/61
--- NOTE | 2018-08-29 08:49 | REP ---
PARTIAL SI JOINT SERIES: Four views. HISTORY: Injection procedure for pain. 17 seconds of fluoroscopy time is reported. FINDINGS: A sequence of four last image hold fluoroscopically obtained spot radiographs of the right SI joint document various needle positions associated with right SI joint injection. Electronically Signed by Vj Clark MD 08/29/2018 10:39 A
[2018-08-29] MEDS: metFORMIN (GLUCOPHAGE) 500 MG TAB PO SCH ×2 (08:53→17:05)
[2018-08-29] MEDS: QUEtiapine FUMARATE 50 MG TAB PO SCH ×2 (08:53→20:25)
[2018-08-29] MEDS: ENOXAPARIN 40 MG/0.4 ML SYRINGE (J1650) SC SCH (08:53)
[2018-08-29] MEDS: CitaloPRAM (CeleXA) 10 MG TABLET PO SCH (08:53)
[2018-08-29] MEDS: ISOSORBIDE MON. (IMDUR) 30 MG XR TAB PO SCH (08:54)
[2018-08-29] MEDS: GABAPENTIN 300 MG CAP PO SCH ×3 (08:54→20:25)
[2018-08-29] MEDS: **NOTE PATIENT COMMENT** MISC XX SCH (08:54)
[2018-08-29] MEDS: PRIMIDONE 50 MG TAB PO SCH ×2 (10:36→20:25)
--- NOTE | 2018-08-29 11:10 | IPNPDOC ---
Subjective Date Seen The patient was seen on 08/29/18. Subjective Chief Complaint/HPI Patient was examined at bedside. She reported that she was still having severe pain. She reported the pain in her lower back had improved after the injection, but her gluteal pain had not improved rating 10/10, and the pain radiates down posteriorly to her right lower extremity. General: Denies: Chills Constitutional: Denies: Chills, Fever Gastrointestinal: Denies: Nausea, Vomiting, Abdominal Pain Musculoskeletal: Reports: Other Symptoms (Low back pain, right sided gluteal pain, and right posterior thigh pain); Denies: Leg Pain Objective Physical Examination General Exam: Positive: Alert, Moderate Distress (laying on her side, minimal movement due to pain) Eye Exam: Positive: Conjunctiva & lids normal; Negative: Sclera icteric ENT Exam: Positive: Atraumatic, Mucous membr. moist/pink Chest Exam: Positive: Clear to auscultation, Normal air movement; Negative: Rales, Rhonchi, Wheezing Heart Exam: Positive: Rate Normal, Regular Rhythm, Normal S1, Normal S2; Negative: Irregular Rhythm Abdomen Exam: Positive: Normal bowel sounds, Soft, Other; Negative: Tenderness Extremity Exam: Positive: Other (Tender right lower parispinal muscles and right hip and buttock upon palpation); Negative: Edema, Swelling Skin Exam: Positive: Nl turgor and temperature, Other skin issue; Negative: Rash Neuro Exam: Positive: Normal Speech, Sensation Intact Psych Exam: Positive: Mental status NL, Mood NL, Memory Intact Assessment /Plan Problems (1) Intractable low back pain Onset Date: 03/22/2014 Status: Acute Response to Treatment: Stable, Improving Problem Specific Plan: Monitor Clinically, Repeat Labs Problem Text: 08/29 Start Soma and PO morphine; stop [place] per pain consult. Cont K-pad and lidoderm. Cont to f/u. Pt not cleared by PT to be d/c 08/27 Maybe 09/06 to radiculopathy vs pyelonephritis vs nephrolithiasis. [facility] consult pending. ESR ordered for today to f/u. SPEP pattern indicates acute inflammation. On K-pad, [place], lidoderm patch, and gabapentin. F/u with ESR. Kidney US December 2017 no nephrolithiasis. Consider US kidney d/t UTI with right sided, CVA tenderness, and questionable nephrolithiasis. Not safe for d/c per PT; when safe, d/c to home with services and need home PT. 08/26 - Right lower back pain severe this morning - Not controlled with [place] x 2 this am. ESR has risen to 60 (was normal 08/25) SPEP suggests inflammation GEt CBCD and follow ESR trend - consider B/C and repeat MRI spine I have requested pain clinic consult as her pain seems to be an exacerbation of her usual acute back pain issues 08/21 Cont with [place] PO, she looks good this morning. She did well with PT yesterday who will see her again today. She has a ways to go in regards to strength recovery for d/c as she lives with her disabled , they have minimal home support. 08/20 - Her back pain was working fairly well for her back pain. Getting PT later this am. May need pain management to revisit if [place] not controlled 08/19 pts RENAL TECHNICIAN use increased yesterday and she wasn't given [place]. Will d/c RENAL TECHNICIAN, and enc nursing to utilize [place]. PT to see today. 08/18 Pt no longer using RENAL TECHNICIAN but controlled with [place]. Enc continued use, will start PT, pt and nursing aware. (2) Acute gout Status: Acute Response to Treatment: Controlled Problem Text: 08/29 Colchicine d/c. Cont to monitor 08/27 Continue Colchicine. Tophi exposed. Non erythematous or warm noted. No to minimal swelling in left big toe. ESR ordered; cont to trend 08/26 - Treated with Colchicine with improvment in toe pain 08/21 improved today. 08/20 - Acute Right great toe pain, tenderness, swelling, erythema - consistent with acute gout Start Colchicine (3) Pyelonephritis Status: Resolved Problem Text: 08/29 S/P 6 days Cephalexin. Afebril w/o leukocytosis; Repeat urine Cx showed no growth 08/26 Right CVA tenderness with low back pain; with dysuria. Afebirle w/o leukocytosis; ESR elevated. UA and urine cx 08/22/18 indicates E-coli infection. Blood Cx ordered. Pt already on PO Cephalexin since 08/23/18. Discussed with lab and no Ca Oxalate crystal noted. PMH of recurrent nephrolithiasis since ; renal US December 2017 neg for stone. Day 6 Cephalexin. Renal US as pt questionable for nephrolithiasis. Repeat urine Cx (4) Hypotension, iatrogenic Onset Date: 03/22/2014 Status: Resolved Problem Specific Plan: Monitor Clinically Problem Text: BP 131/61 this morning. Will continue to f/u with vital signs. Lisinopril d/c 08/26 (5) Diabetes mellitus Status: Chronic Response to Treatment: Stable Problem Text: 08/29 No BMP; POC on 08/28 Wnl 08/27 Blood glucose stable on BMP, continue home med Metformin 08/26 Metformin B/S stable - d/c FSBS (6) Irregular cardiac rhythm Status: Resolved Response to Treatment: Stable Problem Text: 08/29 HR wnl. RRR on physical exam 08/27 HR wnl. Regular rate and rhythm on physical exam 08/21 she was on tele with frequent ectopy 08/20 rate controlled - Exam suggests frequent ectopic beats - possibly bigeminy - Get EKG. labs including electrolytes ordered (7) Hypothyroidism Status: Chronic Problem Text: Free T4 low at 0.77 on08/17/18 with prior T4 wnl; TSH within normal range. PMH of hypothyroidism on home med 100 mcg daily since 2011, last picked up 2016. HPt reported being on 112mcg for about a year. Pt on 112 mcg currently. Recheck TSH and T4 Plan/VTE VTE Prophylaxis Ordered?: Yes (Lovenox) Plan Therapy: PT, OT Diagnostics: Repeat Labs in AM, Obtain Cultures VS, I&O, 24H, Fishbone Vital Signs/I&O Vital Signs Date Time Temp Pulse Resp B/P (MAP) Pulse Ox O2 Delivery O2 Flow Rate FiO2 08/29/18 10:37 18 08/29/18 08:54 135/62 08/29/18 06:11 Room Air 08/29/18 06:00 98.0 83 95 I&O- Last 24 Hours up to 6 AM 08/29/18 06:00 Intake Total 600 ml Output Total 528 ml Balance 72 ml Laboratory Data 24H LABS Laboratory Tests 2 08/28/18 15:29: Bedside Glucose (Misc Panel) 101 08/29/18 05:30: Erythrocyte Sedimentation Rate 45H Microbiology Microbiology 08/27/18 Blood Culture - Preliminary, Resulted No Growth after 48 hours. All Specime... 08/27/18 Urine Culture - Final, Complete 08/22/18 Urine Culture - Final, Complete Escherichia Coli SONIYA LILLY DO Aug 29, 2018 11:09
[2018-08-29] MEDS ORDERED: PILL CRUSHER/CUTTER 1 EACH XX PRN (11:30)
[2018-08-29] MEDS: CARISOPRODOL 350 MG TAB PO SCH ×2 (12:09→20:25)
[2018-08-29] MEDS: MORPHINE 30 MG TAB **MSIR PO PRN ×2 (14:14→21:09)
[2018-08-29] MEDS: LIDOCAINE 5% (LIDODERM) PATCH TD SCH (20:24)
[2018-08-30] MEDS: MORPHINE 30 MG TAB **MSIR PO PRN ×4 (03:36→22:28)
[2018-08-30] MEDS: LEVOTHYROXINE 112MCG TABLET (0.112MG) PO SCH (05:34)
[2018-08-30 06:00] VITALS: BP 126/63
[2018-08-30 06:10] LABS: HEMATOCRIT 29.8 % (36.0-47.0); HEMOGLOBIN 9.4 g/dl (12.0-15.5); MEAN CORPUSCULAR HEMOGLOBIN 30.3 pg (27.0-33.0); MEAN CORPUSCULAR HGB CONC 31.5 g/dl (32.0-36.5); MEAN CORPUSCULAR VOLUME 96.1 fl (80.0-96.0); PLATELET COUNT, AUTOMATED 287 10^3/uL (150-450); WHITE BLOOD COUNT 7.2 10^3/uL (4.0-10.0)
[2018-08-30 06:53] LABS: ERYTHROCYTE SEDIMENTATION RATE 48 mm/hr (0-30)
[2018-08-30] MEDS: **NOTE PATIENT COMMENT** MISC XX SCH (09:00)
[2018-08-30] MEDS: ENOXAPARIN 40 MG/0.4 ML SYRINGE (J1650) SC SCH (09:07)
[2018-08-30] MEDS: ISOSORBIDE MON. (IMDUR) 30 MG XR TAB PO SCH (09:10)
[2018-08-30] MEDS: CARISOPRODOL 350 MG TAB PO SCH ×2 (09:11→20:50)
[2018-08-30] MEDS: PRIMIDONE 50 MG TAB PO SCH ×2 (09:11→20:50)
[2018-08-30] MEDS: QUEtiapine FUMARATE 50 MG TAB PO SCH ×2 (09:11→20:50)
[2018-08-30] MEDS: GABAPENTIN 300 MG CAP PO SCH ×3 (09:12→20:50)
[2018-08-30] MEDS: CitaloPRAM (CeleXA) 10 MG TABLET PO SCH (09:12)
[2018-08-30] MEDS: metFORMIN (GLUCOPHAGE) 500 MG TAB PO SCH ×2 (09:13→17:02)
[2018-08-30 14:00] VITALS: BP 138/62
[2018-08-30] MEDS: LIDOCAINE 5% (LIDODERM) PATCH TD SCH (20:50)
[2018-08-31] MEDS: LEVOTHYROXINE 112MCG TABLET (0.112MG) PO SCH (05:25)
[2018-08-31] MEDS: MORPHINE 30 MG TAB **MSIR PO PRN ×3 (05:25→18:07)
[2018-08-31 06:00] VITALS: BP 152/75
[2018-08-31] MEDS: metFORMIN (GLUCOPHAGE) 500 MG TAB PO SCH ×2 (08:28→16:54)
[2018-08-31] MEDS: GABAPENTIN 300 MG CAP PO SCH ×3 (08:28→21:20)
[2018-08-31] MEDS: CARISOPRODOL 350 MG TAB PO SCH ×2 (08:28→21:20)
[2018-08-31] MEDS: PRIMIDONE 50 MG TAB PO SCH ×2 (08:28→21:20)
[2018-08-31] MEDS: QUEtiapine FUMARATE 50 MG TAB PO SCH ×2 (08:30→21:20)
[2018-08-31] MEDS: **NOTE PATIENT COMMENT** MISC XX SCH (08:33)
[2018-08-31] MEDS: CitaloPRAM (CeleXA) 10 MG TABLET PO SCH (08:33)
[2018-08-31] MEDS: ISOSORBIDE MON. (IMDUR) 30 MG XR TAB PO SCH (08:33)
[2018-08-31] MEDS: ENOXAPARIN 40 MG/0.4 ML SYRINGE (J1650) SC SCH (08:33)
[2018-08-31] MEDS: LIDOCAINE 5% (LIDODERM) PATCH TD SCH (21:20)
[2018-09-01] MEDS: MORPHINE 30 MG TAB **MSIR PO PRN ×3 (01:05→17:18)
[2018-09-01] MEDS: LEVOTHYROXINE 112MCG TABLET (0.112MG) PO SCH (05:29)
[2018-09-01 06:00] VITALS: BP 123/63
[2018-09-01] MEDS: PRIMIDONE 50 MG TAB PO SCH ×2 (09:21→21:42)
[2018-09-01] MEDS: GABAPENTIN 300 MG CAP PO SCH ×3 (09:21→21:42)
[2018-09-01] MEDS: CitaloPRAM (CeleXA) 10 MG TABLET PO SCH (09:21)
[2018-09-01] MEDS: CARISOPRODOL 350 MG TAB PO SCH ×2 (09:21→21:43)
[2018-09-01] MEDS: QUEtiapine FUMARATE 50 MG TAB PO SCH ×2 (09:21→21:43)
[2018-09-01] MEDS: metFORMIN (GLUCOPHAGE) 500 MG TAB PO SCH ×2 (09:21→17:14)
[2018-09-01] MEDS: ENOXAPARIN 40 MG/0.4 ML SYRINGE (J1650) SC SCH (09:22)
[2018-09-01] MEDS: ISOSORBIDE MON. (IMDUR) 30 MG XR TAB PO SCH (09:22)
[2018-09-01] MEDS: **NOTE PATIENT COMMENT** MISC XX SCH (09:22)
[2018-09-01] MEDS ORDERED: HYDROMORPHONE HCL 0.5 MG/ 0.5 ML SYRINGE (J1170 PER 1) IV ONE (13:15)
[2018-09-01] MEDS ORDERED: HYDROmorphone HCL 2 MG/ML 1ML VIAL (J1170) IV ONE (13:15)
[2018-09-01] MEDS ORDERED: CARISOPRODOL 350 MG TAB PO ONE (13:15)
[2018-09-01] MEDS ORDERED: HYDROmorphone HCL 2 MG/ML 1ML VIAL (J1170) As Ordered ONE (13:23)
[2018-09-01] MEDS ORDERED: CARISOPRODOL 350 MG TAB PO SCH (16:00)
[2018-09-01] MEDS: LIDOCAINE 5% (LIDODERM) PATCH TD SCH (21:43)
[2018-09-02] MEDS: LEVOTHYROXINE 112MCG TABLET (0.112MG) PO SCH (05:43)
[2018-09-02] MEDS: MORPHINE 30 MG TAB **MSIR PO PRN ×3 (05:44→23:31)
[2018-09-02 06:13] LABS: HEMATOCRIT 28.7 % (36.0-47.0); MEAN CORPUSCULAR HGB CONC 31.4 g/dl (32.0-36.5); MEAN CORPUSCULAR VOLUME 95.7 fl (80.0-96.0); PLATELET COUNT, AUTOMATED 263 10^3/uL (150-450); WHITE BLOOD COUNT 6.6 10^3/uL (4.0-10.0)
[2018-09-02 06:34] LABS: ERYTHROCYTE SEDIMENTATION RATE 35 mm/hr (0-30)
[2018-09-02] MEDS: ENOXAPARIN 40 MG/0.4 ML SYRINGE (J1650) SC SCH (07:14)
[2018-09-02] MEDS: PRIMIDONE 50 MG TAB PO SCH ×2 (08:29→20:59)
[2018-09-02] MEDS: CitaloPRAM (CeleXA) 10 MG TABLET PO SCH (08:29)
[2018-09-02] MEDS: GABAPENTIN 300 MG CAP PO SCH ×3 (08:29→21:00)
[2018-09-02] MEDS: metFORMIN (GLUCOPHAGE) 500 MG TAB PO SCH ×2 (08:29→17:58)
[2018-09-02] MEDS: QUEtiapine FUMARATE 50 MG TAB PO SCH ×2 (08:29→21:00)
[2018-09-02] MEDS: CARISOPRODOL 350 MG TAB PO SCH ×3 (08:29→21:00)
[2018-09-02] MEDS: **NOTE PATIENT COMMENT** MISC XX SCH (08:30)
[2018-09-02] MEDS: ISOSORBIDE MON. (IMDUR) 30 MG XR TAB PO SCH (08:30)
--- NOTE | 2018-09-02 08:57 | CR ---
DATE OF CONSULTATION: 09/01/2018 CHIEF COMPLAINT: 1. Low back pain. 2. Right leg pain. We are seeing Ynes for a followup today. States that the right SIJ done last here at the pain center continues to help with low back pain but she is having unrelenting right leg pain especially with any ambulation. She is very uncomfortable at time of visit today. Rating pain level 10 over 10. States her pain feels like it did prior to hospital admission. Reviewed her MRI. Discussed coming over to the pain center tomorrow for ALAYNAAlysha. Imaging does reveal neural impingement that could be the cause of her right leg pain. She is receptive to this. PHYSICAL EXAMINATION: Awake, alert, sitting in a chair at bedside. Appears very, very uncomfortable. Weak over right leg. Normal sensation to light touch lower extremities. ASSESSMENT: 1. Lumbar disc displacement. 2. Lumbar radiculopathy. PLAN: The patient will be brought over to pain clinic on September 02 at the 9:00 a.m.. N.p.o. after midnight on 09/01. Today I have ordered a Dilaudid 0.6 mg IV dose stat for severe pain. I have also recommended that Soma be increased to every 8 hours three times daily. I have asked her to arrive at the pain clinic on a stretcher with preoperative checklist and medication list accompanying patient. Lovenox dose is to be held on September 02. cc: Svetlana Palomino PA-C
[2018-09-02] MEDS ORDERED: methylPREDNISolone SUSP 40 MG/ML (DEPO-medrol) VIAL (J1030) As Ordered ONE (10:07)
[2018-09-02] MEDS ORDERED: LIDOCAINE 1% SDV INJ 30 ML VIAL As Ordered ONE (10:07)
[2018-09-02] MEDS ORDERED: ISOVUE-M 300 61% 15ML VIAL (Q9967) As Ordered ONE (10:08)
[2018-09-02] MEDS ORDERED: oxyCODONE 5MG TAB As Ordered ONE (10:09)
[2018-09-02] MEDS ORDERED: diazePAM 5 MG TAB As Ordered ONE (10:10)
--- NOTE | 2018-09-02 12:56 | REP ---
C-ARM VIEW DURING PAIN INJECTION: Clinical history is pain. C-arm view is performed during injection by Dr. Bardales. Needle is seen at the L4-5 level and a small amount of contrast is injected. 17 seconds of fluoroscopy time utilized. Electronically Signed by James Funez MD 09/02/2018 01:45 P
[2018-09-02] MEDS: LIDOCAINE 5% (LIDODERM) PATCH TD SCH (21:00)
[2018-09-03 06:00] VITALS: BP 121/78
[2018-09-03] MEDS: LEVOTHYROXINE 112MCG TABLET (0.112MG) PO SCH (06:08)
[2018-09-03] MEDS: MORPHINE 30 MG TAB **MSIR PO PRN ×2 (06:10→14:21)
[2018-09-03] MEDS: **NOTE PATIENT COMMENT** MISC XX SCH (09:00)
--- NOTE | 2018-09-03 09:02 | IPNPDOC ---
Subjective Date Seen The patient was seen on 09/03/18. Subjective Chief Complaint/HPI Patient was examined at bedside. She reports still having 9/10 right sided gluteal pain radiating down all the way to her right ankle. Reported that the steroid injection helped relieved the back pain. She said she did not feel the epidural she received yesterday had helped yet. Described movement makes the pain 10/10. She also describes having dysuria(burning pain) with urgency that has been about the same for the past 2 months. Denies fever, chills, nausea, vomiting, or abdominal pain. Constitutional: Denies: Chills, Fever Gastrointestinal: Denies: Nausea, Vomiting, Abdominal Pain Objective Physical Examination General Exam: Positive: Alert, Moderate Distress (laying on her side, minimal movement due to pain) Eye Exam: Positive: Conjunctiva & lids normal; Negative: Sclera icteric ENT Exam: Positive: Atraumatic, Mucous membr. moist/pink Chest Exam: Positive: Clear to auscultation, Normal air movement; Negative: Rales, Rhonchi, Wheezing Heart Exam: Positive: Rate Normal, Regular Rhythm, Normal S1, Normal S2; Negative: Irregular Rhythm Abdomen Exam: Positive: Normal bowel sounds, Soft, Other; Negative: Tenderness Extremity Exam: Positive: Tenderness (Tenderness to palpation diffusely from right gluteal area to right ankle), Other (right great toe tophi not observed; healing wound); Negative: Edema, Swelling Skin Exam: Positive: Nl turgor and temperature; Negative: Rash Neuro Exam: Positive: Normal Speech, Strength at 5/5 X4 ext, Sensation Intact Psych Exam: Positive: Mental status NL, Mood NL, Memory Intact Assessment /Plan Problems (1) Intractable low back pain Onset Date: 03/22/2014 Status: Acute Response to Treatment: Stable, Improving Problem Specific Plan: Monitor Clinically, Repeat Labs Problem Text: 09/03 Pt s/p steroid injection and epidural; stating back pain relieved after steroid injection. Continue Morphine, Lidocaine, and Soma. Cont to monitor the pt 08/29 Start Soma and PO morphine; stop Prescott per pain consult. Cont K-pad and lidoderm. Cont to f/u. Pt not cleared by PT to be d/c 08/27 Maybe / to radiculopathy vs pyelonephritis vs nephrolithiasis. [facility] consult pending. ESR ordered for today to f/u. SPEP pattern indicates acute inflammation. On K-pad, Prescott, lidoderm patch, and gabapentin. F/u with ESR. Kidney US December 2017 no nephrolithiasis. Consider US kidney d/t UTI with right sided, CVA tenderness, and questionable nephrolithiasis. Not safe for d/c per PT; when safe, d/c to home with services and need home PT. 08/26 - Right lower back pain severe this morning - Not controlled with Prescott x 2 this am. ESR has risen to 60 (was normal 08/25) SPEP suggests inflammation GEt CBCD and follow ESR trend - consider B/C and repeat MRI spine I have requested pain clinic consult as her pain seems to be an exacerbation of her usual acute back pain issues 08/21 Cont with Prescott PO, she looks good this morning. She did well with PT yesterday who will see her again today. She has a ways to go in regards to [facility] for d/c as she lives with her disabled , they have minimal home support. 08/20 - Her back pain was working fairly well for her back pain. Getting PT later this am. May need pain management to revisit if Prescott not controlled 08/19 pts BILLPOSTER use increased yesterday and she wasn't given Prescott. Will d/c BILLPOSTER, and enc nursing to utilize Prescott. PT to see today. 08/18 Pt no longer using BILLPOSTER but controlled with Prescott. Enc continued use, will start PT, pt and nursing aware. (2) Acute gout Status: Acute Response to Treatment: Controlled Problem Text: 09/03Tophi not observed. Healing wound. Continue to monitor 08/29 Colchicine d/c. Cont to monitor 08/27 Continue Colchicine. Tophi exposed. Non erythematous or warm noted. No to minimal swelling in left big toe. ESR ordered; cont to trend 08/26 - Treated with Colchicine with improvment in toe pain 08/21 improved today. 08/20 - Acute Right great toe pain, tenderness, swelling, erythema - consistent with acute gout Start Colchicine (3) Pyelonephritis Status: Resolved Problem Text: 08/29 S/P 6 days Cephalexin. Afebril w/o leukocytosis; Repeat urine Cx showed no growth 08/26 Right CVA tenderness with low back pain; with dysuria. Afebirle w/o leukocytosis; ESR elevated. UA and urine cx 08/22/18 indicates E-coli infection. Blood Cx ordered. Pt already on PO Cephalexin since 08/23/18. Discussed with lab and no Ca Oxalate crystal noted. PMH of recurrent nephrolithiasis since ; renal US December 2017 neg for stone. Day 6 Cephalexin. Renal US as pt questionable for nephrolithiasis. Repeat urine Cx (4) Hypotension, iatrogenic Onset Date: 03/22/2014 Status: Resolved Problem Specific Plan: Monitor Clinically Problem Text: BP stable 121/78. Will continue to f/u with vital signs. Lisinopril d/c 08/26 (5) Diabetes mellitus Status: Chronic Response to Treatment: Stable Problem Text: 09/03 Most recent POC 125. On insulin sliding scale. Continue POC as scheduled. 08/29 No BMP; POC on 08/28 Wnl 08/27 Blood glucose stable on BMP, continue home med Metformin 08/26 Metformin B/S stable - d/c FSBS (6) Irregular cardiac rhythm Status: Resolved Response to Treatment: Stable Problem Text: 09/03 RRR on physical exam. 08/29 HR wnl. RRR on physical exam 08/27 HR wnl. Regular rate and rhythm on physical exam 08/21 she was on tele with frequent ectopy 08/20 rate controlled - Exam suggests frequent ectopic beats - possibly bigeminy - Get EKG. labs including electrolytes ordered (7) Hypothyroidism Status: Chronic Problem Text: Free T4 low at 0.77 on08/17/18 with prior T4 wnl; TSH within normal range. PMH of hypothyroidism on home med 100 mcg daily since 2011, last picked up 2016. HPt reported being on 112mcg for about a year. Pt on 112 mcg currently. Recheck TSH and T4 (8) Dysuria Status: Chronic Problem Text: Dysuria for about 2 months. Pt reported urgency today. Urine Cx pos for E-coli when first admitted questionable CVA tenderness; s/p 6 day Keflex. Will order UA to recheck. Vital signs as scheduled and cont to monitor pt. Plan/VTE VTE Prophylaxis Ordered?: Yes (Lovenox) Plan Therapy: PT, OT Diagnostics: Repeat Labs in AM, Obtain Cultures VS, I&O, 24H, Fishbone Vital Signs/I&O Vital Signs Date Time Temp Pulse Resp B/P (MAP) Pulse Ox O2 Delivery O2 Flow Rate FiO2 09/03/18 06:10 18 09/03/18 06:00 97.9 68 121/78 (92) 92 09/02/18 13:25 Room Air I&O- Last 24 Hours up to 6 AM 09/03/18 06:00 Intake Total 360 ml Output Total 850 ml Balance -490 ml Laboratory Data 24H LABS Laboratory Tests 2 09/03/18 05:38: Erythrocyte Sedimentation Rate 32H Microbiology Microbiology 08/27/18 Blood Culture - Final, Complete NO GROWTH AFTER 5 DAYS 08/27/18 Urine Culture - Final, Complete SONIYA LILLY DO Sep 03, 2018 09:02
[2018-09-03] MEDS: GABAPENTIN 300 MG CAP PO SCH ×3 (09:28→20:43)
[2018-09-03] MEDS: QUEtiapine FUMARATE 50 MG TAB PO SCH ×2 (09:28→20:43)
[2018-09-03] MEDS: CitaloPRAM (CeleXA) 10 MG TABLET PO SCH (09:28)
[2018-09-03] MEDS: ISOSORBIDE MON. (IMDUR) 30 MG XR TAB PO SCH (09:29)
[2018-09-03] MEDS: PRIMIDONE 50 MG TAB PO SCH ×2 (09:29→20:43)
[2018-09-03] MEDS: metFORMIN (GLUCOPHAGE) 500 MG TAB PO SCH ×2 (09:29→17:06)
[2018-09-03] MEDS: CARISOPRODOL 350 MG TAB PO SCH ×3 (09:29→20:43)
[2018-09-03] MEDS: ENOXAPARIN 40 MG/0.4 ML SYRINGE (J1650) SC SCH (09:30)
[2018-09-03] MEDS: LIDOCAINE 5% (LIDODERM) PATCH TD SCH (20:43)
[2018-09-03 22:00] VITALS: BP 125/74
[2018-09-04 06:00] VITALS: BP 123/94
[2018-09-04] MEDS: LEVOTHYROXINE 112MCG TABLET (0.112MG) PO SCH (06:00)
[2018-09-04] MEDS: MORPHINE 30 MG TAB **MSIR PO PRN ×2 (06:01→22:41)
[2018-09-04] MEDS: CARISOPRODOL 350 MG TAB PO SCH ×3 (08:14→20:52)
[2018-09-04] MEDS: metFORMIN (GLUCOPHAGE) 500 MG TAB PO SCH ×2 (08:14→17:10)
[2018-09-04] MEDS: GABAPENTIN 300 MG CAP PO SCH ×3 (08:14→20:52)
[2018-09-04] MEDS: PRIMIDONE 50 MG TAB PO SCH ×2 (08:14→20:52)
[2018-09-04] MEDS: CitaloPRAM (CeleXA) 10 MG TABLET PO SCH (08:14)
[2018-09-04] MEDS: QUEtiapine FUMARATE 50 MG TAB PO SCH ×2 (08:14→20:52)
[2018-09-04] MEDS: ENOXAPARIN 40 MG/0.4 ML SYRINGE (J1650) SC SCH (08:14)
[2018-09-04] MEDS: ISOSORBIDE MON. (IMDUR) 30 MG XR TAB PO SCH (08:14)
[2018-09-04] MEDS: **NOTE PATIENT COMMENT** MISC XX SCH (08:16)
--- NOTE | 2018-09-04 10:32 | IPNPDOC ---
Subjective Date Seen The patient was seen on 09/04/18. Subjective Chief Complaint/HPI Patient was examined at bedside. She reported that her right gluteal pain has improved, now 7/10 sharp pain. She stated that the pain now radiates from right gluteal region all the way down to her foot. She admitted that the back pain had resolved. General: Denies: Chills Constitutional: Denies: Chills, Fever ENT: Denies: Head Aches Pulmonary: Denies: Dyspnea, Cough Cardiovascular: Denies: Palpitations Gastrointestinal: Denies: Nausea, Abdominal Pain, Diarrhea, Constipation (right leg and foot pain) Musculoskeletal: Reports: Leg Pain, Foot Pain, Other Symptoms (Right gluteal pain) Neurological: Reports: Numbness Objective Physical Examination General Exam: Positive: Alert, Moderate Distress (laying supine, minimal movement due to pain) Eye Exam: Positive: Conjunctiva & lids normal; Negative: Sclera icteric ENT Exam: Positive: Atraumatic, Mucous membr. moist/pink Chest Exam: Positive: Clear to auscultation, Normal air movement; Negative: Rales, Rhonchi, Wheezing Heart Exam: Positive: Rate Normal, Regular Rhythm, Normal S1, Normal S2; Negative: Irregular Rhythm Abdomen Exam: Positive: Normal bowel sounds, Soft; Negative: Tenderness Extremity Exam: Positive: Tenderness (Tenderness to palpation diffusely from right gluteal area to right foot. At least 3 trigger point identified); Negative: Edema, Swelling Skin Exam: Positive: Nl turgor and temperature; Negative: Rash Neuro Exam: Positive: Normal Speech, Strength at 5/5 X4 ext, Sensation Intact Psych Exam: Positive: Mental status NL, Mood NL, Memory Intact Assessment /Plan Problems (1) Gluteal pain Status: Acute Response to Treatment: Improving Problem Text: 09/04 TENS ordered. Discussed with pain clinic, they will re- evaluate the pt for trigger point injection. Cont other current pain management. Cont to monitor the pt Right sided gluteal pain radiating down right lower extremity that had been present since admission. S/p spinal steroid injection and epidural. As of 09/03 she had been rating the pain 10/10 (2) Intractable low back pain Onset Date: 03/22/2014 Status: Resolved Response to Treatment: Stable, Improving Problem Specific Plan: Monitor Clinically, Repeat Labs Problem Text: 09/04 Discussed with pain clinic, they will re-evaluate the pt for trigger point injection. Cont current pain management. Cont to monitor the pt 09/03 Pt s/p steroid injection and epidural; stating back pain relieved after steroid injection. Continue Morphine, Lidocaine patch, and Soma. Cont to monitor the pt 08/29 Start Soma and PO morphine; stop Atkinson per pain consult. Cont K-pad and lidoderm. Cont to f/u. Pt not cleared by PT to be d/c 08/27 Maybe 2/2 to radiculopathy vs pyelonephritis vs nephrolithiasis. [facility] consult pending. ESR ordered for today to f/u. SPEP pattern indicates acute inflammation. On K-pad, Atkinson, lidoderm patch, and gabapentin. F/u with ESR. Kidney US December 2017 no nephrolithiasis. Consider US kidney d/t UTI with right sided, CVA tenderness, and questionable nephrolithiasis. Not safe for d/c per PT; when safe, d/c to home with services and need home PT. 08/26 - Right lower back pain severe this morning - Not controlled with Atkinson x 2 this am. ESR has risen to 60 (was normal 08/25) SPEP suggests inflammation GEt CBCD and follow ESR trend - consider B/C and repeat MRI spine I have requested pain clinic consult as her pain seems to be an exacerbation of her usual acute back pain issues 08/21 Cont with Atkinson PO, she looks good this morning. She did well with PT yesterday who will see her again today. She has a ways to go in regards to strength recovery for d/c as she lives with her disabled , they have minimal home support. 08/20 - Her back pain was working fairly well for her back pain. Getting PT later this am. May need pain management to revisit if Atkinson not controlled 08/19 pts COPYIST use increased yesterday and she wasn't given Atkinson. Will d/c COPYIST, and enc nursing to utilize Atkinson. PT to see today. 08/18 Pt no longer using COPYIST but controlled with Atkinson. Enc continued use, will start PT, pt and nursing aware. (3) Acute gout Status: Resolved Response to Treatment: Controlled Problem Text: 09/03Tophi not observed. Healing wound. Continue to monitor 08/29 Colchicine d/c. Cont to monitor 08/27 Continue Colchicine. Tophi exposed. Non erythematous or warm noted. No to minimal swelling in left big toe. ESR ordered; cont to trend 08/26 - Treated with Colchicine with improvment in toe pain 08/21 improved today. 08/20 - Acute Right great toe pain, tenderness, swelling, erythema - consistent with acute gout Start Colchicine (4) Pyelonephritis Status: Resolved Problem Text: 08/29 S/P 6 days Cephalexin. Afebril w/o leukocytosis; Repeat urine Cx showed no growth 08/26 Right CVA tenderness with low back pain; with dysuria. Afebirle w/o leukocytosis; ESR elevated. UA and urine cx 08/22/18 indicates E-coli infection. Blood Cx ordered. Pt already on PO Cephalexin since 08/23/18. Discussed with lab and no Ca Oxalate crystal noted. PMH of recurrent nephrolithiasis since ; renal US December 2017 neg for stone. Day 6 Cephalexin. Renal US as pt questionable for nephrolithiasis. Repeat urine Cx (5) Hypotension, iatrogenic Onset Date: 03/22/2014 Status: Resolved Problem Specific Plan: Monitor Clinically Problem Text: BP stable 121/78. Will continue to f/u with vital signs. Lisinopril d/c 08/26 (6) Diabetes mellitus Status: Chronic Response to Treatment: Stable Problem Text: 09/04 Most recent POC 125 on 09/02. Cont insulin sliding scale. Cont POC as scheduled 09/03 Most recent POC 125. On insulin sliding scale. Continue POC as scheduled. 08/29 No BMP; POC on 08/28 Wnl 08/27 Blood glucose stable on BMP, continue home med Metformin 08/26 Metformin B/S stable - d/c FSBS (7) Irregular cardiac rhythm Status: Resolved Response to Treatment: Stable Problem Text: 09/04 RRR on physical exam 09/03 RRR on physical exam. 08/29 HR wnl. RRR on physical exam 08/27 HR wnl. Regular rate and rhythm on physical exam 08/21 she was on tele with frequent ectopy 08/20 rate controlled - Exam suggests frequent ectopic beats - possibly bigeminy - Get EKG. labs including electrolytes ordered (8) Hypothyroidism Status: Chronic Problem Text: Free T4 low at 0.77 on08/17/18 with prior T4 wnl; TSH within normal range. PMH of hypothyroidism on home med 100 mcg daily since 2011, last picked up 2016. HPt reported being on 112mcg for about a year. Pt on 112 mcg currently. Recheck TSH and T4 (9) Dysuria Status: Chronic Problem Text: 09/04 Urine Cx neg. Continue to monitor the pt. Vital signs as scheduled 09/03 Dysuria for about 2 months. Pt reported urgency today. Urine Cx pos for E- coli when first admitted questionable CVA tenderness; s/p 6 day Keflex. Will order UA to recheck. Vital signs as scheduled and cont to monitor pt. Plan/VTE VTE Prophylaxis Ordered?: Yes (Lovenox) Plan Therapy: PT, OT Diagnostics: Repeat Labs in AM, Obtain Cultures VS, I&O, 24H, Fishbone Vital Signs/I&O Vital Signs Date Time Temp Pulse Resp B/P (MAP) Pulse Ox O2 Delivery O2 Flow Rate FiO2 09/04/18 08:14 123/94 09/04/18 06:31 18 09/04/18 06:00 98.4 68 93 09/02/18 13:25 Room Air I&O- Last 24 Hours up to 6 AM 09/04/18 06:00 Intake Total 810 ml Output Total 1950 ml Balance -1140 ml Laboratory Data Microbiology Microbiology 08/27/18 Blood Culture - Final, Complete NO GROWTH AFTER 5 DAYS 08/27/18 Urine Culture - Final, Complete SONIYA LILLY DO Sep 04, 2018 10:32
[2018-09-04] MEDS: VITAMIN D 50,000 UNITS CAPSULE (ERGOCALCIFEROL 1.25MG) PO SCH (17:10)
[2018-09-04] MEDS: LIDOCAINE 5% (LIDODERM) PATCH TD SCH (20:53)
[2018-09-05] MEDS: LEVOTHYROXINE 112MCG TABLET (0.112MG) PO SCH (05:52)
[2018-09-05] MEDS: MORPHINE 30 MG TAB **MSIR PO PRN ×4 (05:53→22:52)
[2018-09-05 06:00] VITALS: BP 173/80
[2018-09-05] MEDS: ISOSORBIDE MON. (IMDUR) 30 MG XR TAB PO SCH (07:54)
[2018-09-05] MEDS: ENOXAPARIN 40 MG/0.4 ML SYRINGE (J1650) SC SCH (08:31)
[2018-09-05] MEDS: metFORMIN (GLUCOPHAGE) 500 MG TAB PO SCH ×2 (08:31→18:11)
[2018-09-05] MEDS: **NOTE PATIENT COMMENT** MISC XX SCH (08:31)
[2018-09-05] MEDS: CARISOPRODOL 350 MG TAB PO SCH ×3 (08:31→20:53)
[2018-09-05] MEDS: GABAPENTIN 300 MG CAP PO SCH ×3 (08:31→20:53)
[2018-09-05] MEDS: QUEtiapine FUMARATE 50 MG TAB PO SCH ×2 (08:31→20:53)
[2018-09-05] MEDS: CitaloPRAM (CeleXA) 10 MG TABLET PO SCH (08:31)
[2018-09-05] MEDS: PRIMIDONE 50 MG TAB PO SCH ×2 (08:31→20:53)
[2018-09-05 08:36] VITALS: BP 148/88
[2018-09-05 14:00] VITALS: BP 145/75
--- NOTE | 2018-09-05 15:50 | IPNPDOC ---
Subjective Date Seen The patient was seen on 09/05/18. Subjective Chief Complaint/HPI Pt received 4 trigger point injections at right gluteal region at pain clinic. She reported that she felt the right gluteal sharp pain improved; right gluteal pain still radiates down to her right foot. She reported having right sided lower back pain 6/10 today, but reported that she feels the pain improved after the steroid injection General: Denies: Chills, Night Sweats Constitutional: Denies: Chills, Fever, Night Sweats Pulmonary: Denies: Dyspnea, Cough Cardiovascular: Denies: Chest Pain, Palpitations Gastrointestinal: Denies: Nausea, Vomiting, Abdominal Pain, Diarrhea, Constipation Musculoskeletal: Reports: Back Pain (low back pain), Leg Pain, Foot Pain, Other Symptoms (right gluteal pain) Neurological: Denies: Weakness, Numbness Objective Physical Examination General Exam: Positive: Alert, Mild Distress Eye Exam: Positive: Conjunctiva & lids normal; Negative: Sclera icteric ENT Exam: Positive: Atraumatic, Mucous membr. moist/pink Chest Exam: Positive: Clear to auscultation, Normal air movement; Negative: Rales, Rhonchi, Wheezing Heart Exam: Positive: Rate Normal, Regular Rhythm, Normal S1, Normal S2; Negative: Irregular Rhythm Abdomen Exam: Positive: Normal bowel sounds, Soft; Negative: Tenderness Extremity Exam: Positive: Tenderness (Tenderness to palpation diffusely from right gluteal area to right foot. Tenderness on right sided lumbar area upon palpation); Negative: Edema, Swelling Skin Exam: Positive: Nl turgor and temperature; Negative: Rash Neuro Exam: Positive: Normal Speech, Sensation Intact Psych Exam: Positive: Mental status NL, Mood NL, Memory Intact Assessment /Plan Problems (1) Gluteal pain Status: Acute Response to Treatment: Improving Problem Text: 09/05 s/p 4 trigger point injections on right gluteal region. Pt reported pain improved. Cont to monitor the pt 09/04 TENS ordered. Discussed with pain clinic, they will re-evaluate the pt for trigger point injection. Cont other current pain management. Cont to monitor the pt Right sided gluteal pain radiating down right lower extremity that had been present since admission. S/p spinal steroid injection and epidural. As of 09/03 she had been rating the pain 10/10 (2) Intractable low back pain Onset Date: 03/22/2014 Status: Acute Response to Treatment: Stable, Improving Problem Specific Plan: Monitor Clinically, Repeat Labs Problem Text: 09/05 S/p 4 trigger point injections at pain clinic. Cont to monitor the pt 09/04 Discussed with pain clinic, they will re-evaluate the pt for trigger point injection. Cont current pain management. Cont to monitor the pt 09/03 Pt s/p steroid injection and epidural; stating back pain relieved after steroid injection. Continue Morphine, Lidocaine patch, and Soma. Cont to monitor the pt 08/29 Start Soma and PO morphine; stop Paradise per pain consult. Cont K-pad and lidoderm. Cont to f/u. Pt not cleared by PT to be d/c 08/27 Maybe 09/06 to radiculopathy vs pyelonephritis vs nephrolithiasis. [facility] consult pending. ESR ordered for today to f/u. SPEP pattern indicates acute inflammation. On K-pad, Paradise, lidoderm patch, and gabapentin. F/u with ESR. Kidney US December 2017 no nephrolithiasis. Consider US kidney d/t UTI with right sided, CVA tenderness, and questionable nephrolithiasis. Not safe for d/c per PT; when safe, d/c to home with services and need home PT. 08/26 - Right lower back pain severe this morning - Not controlled with Paradise x 2 this am. ESR has risen to 60 (was normal 08/25) SPEP suggests inflammation GEt CBCD and follow ESR trend - consider B/C and repeat MRI spine I have requested pain clinic consult as her pain seems to be an exacerbation of her usual acute back pain issues 08/21 Cont with Paradise PO, she looks good this morning. She did well with PT yesterday who will see her again today. She has a ways to go in regards to strength recovery for d/c as she lives with her disabled , they have minimal home support. 08/20 - Her back pain was working fairly well for her back pain. Getting PT later this am. May need pain management to revisit if Paradise not controlled 08/19 pts CUT TOBACCO BULKER use increased yesterday and she wasn't given Paradise. Will d/c CUT TOBACCO BULKER, and enc nursing to utilize Paradise. PT to see today. 08/18 Pt no longer using CUT TOBACCO BULKER but controlled with Paradise. Enc continued use, will start PT, pt and nursing aware. (3) Acute gout Status: Resolved Response to Treatment: Controlled Problem Text: 09/03Tophi not observed. Healing wound. Continue to monitor 08/29 Colchicine d/c. Cont to monitor 08/27 Continue Colchicine. Tophi exposed. Non erythematous or warm noted. No to minimal swelling in left big toe. ESR ordered; cont to trend 08/26 - Treated with Colchicine with improvment in toe pain 08/21 improved today. 08/20 - Acute Right great toe pain, tenderness, swelling, erythema - consistent with acute gout Start Colchicine (4) Pyelonephritis Status: Resolved Problem Text: 08/29 S/P 6 days Cephalexin. Afebril w/o leukocytosis; Repeat urine Cx showed no growth 08/26 Right CVA tenderness with low back pain; with dysuria. Afebirle w/o leukocytosis; ESR elevated. UA and urine cx 08/22/18 indicates E-coli infection. Blood Cx ordered. Pt already on PO Cephalexin since 08/23/18. Discussed with lab and no Ca Oxalate crystal noted. PMH of recurrent nephrolithiasis since ; renal US December 2017 neg for stone. Day 6 Cephalexin. Renal US as pt questionable for nephrolithiasis. Repeat urine Cx (5) Hypotension, iatrogenic Onset Date: 03/22/2014 Status: Resolved Problem Specific Plan: Monitor Clinically Problem Text: BP elevated 170s/80s this morning, later decreased to 140s/80s w/o BP meds. Will continue to f/u with vital signs. Resume home med Ramipril with holding parameters (6) Diabetes mellitus Status: Chronic Response to Treatment: Stable Problem Text: 09/05 Most recent POC 109. Cont insulin sliding scale. Cont POC as scheduled 08/26 Metformin B/S stable - d/c FSBS (7) Irregular cardiac rhythm Status: Resolved Response to Treatment: Stable Problem Text: 09/05 RRR on physical exam 08/21 she was on tele with frequent ectopy 08/20 rate controlled - Exam suggests frequent ectopic beats - possibly bigeminy - Get EKG. labs including electrolytes ordered (8) Hypothyroidism Status: Chronic Problem Text: Free T4 low at 0.77 on08/17/18 with prior T4 wnl; TSH within normal range. PMH of hypothyroidism on home med 100 mcg daily since 2011, last picked up 2016. HPt reported being on 112mcg for about a year. Pt on 112 mcg currently. Recheck TSH and T4 (9) Dysuria Status: Chronic Response to Treatment: Stable Problem Text: 09/04 Urine Cx neg. Continue to monitor the pt. Vital signs as scheduled 09/03 Dysuria for about 2 months. Pt reported urgency today. Urine Cx pos for E- coli when first admitted questionable CVA tenderness; s/p 6 day Keflex. Will order UA to recheck. Vital signs as scheduled and cont to monitor pt. Plan/VTE VTE Prophylaxis Ordered?: Yes (Lovenox) Plan Therapy: PT, OT Diagnostics: Repeat Labs in AM, Obtain Cultures VS, I&O, 24H, Fishbone Vital Signs/I&O Vital Signs Date Time Temp Pulse Resp B/P (MAP) Pulse Ox O2 Delivery O2 Flow Rate FiO2 09/05/18 13:53 18 09/05/18 08:36 148/88 (108) 09/05/18 06:00 97.4 66 95 09/02/18 13:25 Room Air I&O- Last 24 Hours up to 6 AM 09/05/18 06:00 Intake Total 1160 ml Output Total 1250 ml Balance -90 ml Laboratory Data 24H LABS Laboratory Tests 2 09/05/18 05:45: Urine Color YELLOW, Urine Appearance CLEAR, Urine pH 7.0, Urine Specific [place] 1.018, Urine Protein NEGATIVE, Urine Glucose (UA) NEGATIVE, Urine Ketones NEGATIVE, Urine Blood NEGATIVE, Urine Nitrite NEGATIVE, Urine Bilirubin NEGATIVE, Urine Urobilinogen 0.2, Urine Leukocyte Esterase NEGATIVE, Urine WBC (Auto) 1, Urine RBC (Auto) 2, Urine Hyaline Casts (Auto) 0, Urine Bacteria (Auto) NEGATIVE, Urine Squamous Epithelial Cells 0, Urine Sperm (Auto) Microbiology Microbiology 08/27/18 Blood Culture - Final, Complete NO GROWTH AFTER 5 DAYS 08/27/18 Urine Culture - Final, Complete SONIYA LILLY DO Sep 05, 2018 15:50
[2018-09-05] MEDS: LIDOCAINE 5% (LIDODERM) PATCH TD SCH (20:53)
[2018-09-06] MEDS: MORPHINE 30 MG TAB **MSIR PO PRN ×4 (04:48→18:15)
[2018-09-06] MEDS: LEVOTHYROXINE 112MCG TABLET (0.112MG) PO SCH (05:42)
[2018-09-06 06:00] VITALS: BP 130/61
[2018-09-06] MEDS: ENOXAPARIN 40 MG/0.4 ML SYRINGE (J1650) SC SCH (08:21)
[2018-09-06] MEDS: RAMIPRIL 5 MG CAP PO SCH (08:21)
[2018-09-06] MEDS: QUEtiapine FUMARATE 50 MG TAB PO SCH ×2 (08:22→20:10)
[2018-09-06] MEDS: CARISOPRODOL 350 MG TAB PO SCH ×3 (08:22→20:10)
[2018-09-06] MEDS: GABAPENTIN 300 MG CAP PO SCH ×3 (08:22→20:10)
[2018-09-06] MEDS: PRIMIDONE 50 MG TAB PO SCH ×2 (08:22→20:10)
[2018-09-06] MEDS: metFORMIN (GLUCOPHAGE) 500 MG TAB PO SCH ×2 (08:22→17:18)
[2018-09-06] MEDS: CitaloPRAM (CeleXA) 10 MG TABLET PO SCH (08:22)
[2018-09-06] MEDS: ISOSORBIDE MON. (IMDUR) 30 MG XR TAB PO SCH (08:23)
[2018-09-06] MEDS: **NOTE PATIENT COMMENT** MISC XX SCH (08:24)
[2018-09-06 14:00] VITALS: BP 105/62
[2018-09-06] MEDS: LIDOCAINE 5% (LIDODERM) PATCH TD SCH (20:10)
[2018-09-07] MEDS: MORPHINE 30 MG TAB **MSIR PO PRN ×5 (02:09→21:24)
[2018-09-07 06:00] VITALS: BP 129/60
[2018-09-07] MEDS: LEVOTHYROXINE 112MCG TABLET (0.112MG) PO SCH (06:27)
[2018-09-07] MEDS: **NOTE PATIENT COMMENT** MISC XX SCH (09:00)
[2018-09-07] MEDS: PRIMIDONE 50 MG TAB PO SCH ×2 (09:03→20:01)
[2018-09-07] MEDS: GABAPENTIN 300 MG CAP PO SCH ×3 (09:03→20:01)
[2018-09-07] MEDS: RAMIPRIL 5 MG CAP PO SCH (09:04)
[2018-09-07] MEDS: metFORMIN (GLUCOPHAGE) 500 MG TAB PO SCH ×2 (09:05→17:21)
[2018-09-07] MEDS: QUEtiapine FUMARATE 50 MG TAB PO SCH ×2 (09:05→20:01)
[2018-09-07] MEDS: CARISOPRODOL 350 MG TAB PO SCH ×3 (09:06→20:01)
[2018-09-07] MEDS: ENOXAPARIN 40 MG/0.4 ML SYRINGE (J1650) SC SCH (09:06)
[2018-09-07] MEDS: ISOSORBIDE MON. (IMDUR) 30 MG XR TAB PO SCH (09:06)
[2018-09-07] MEDS: CitaloPRAM (CeleXA) 10 MG TABLET PO SCH (09:06)
[2018-09-07] MEDS: LIDOCAINE 5% (LIDODERM) PATCH TD SCH (20:01)
[2018-09-08] MEDS: MORPHINE 30 MG TAB **MSIR PO PRN ×4 (03:33→18:14)
[2018-09-08] MEDS: LEVOTHYROXINE 112MCG TABLET (0.112MG) PO SCH (05:14)
[2018-09-08 06:00] VITALS: BP 138/71
[2018-09-08] MEDS: metFORMIN (GLUCOPHAGE) 500 MG TAB PO SCH ×2 (08:28→18:14)
[2018-09-08] MEDS: QUEtiapine FUMARATE 50 MG TAB PO SCH ×2 (08:28→20:19)
[2018-09-08] MEDS: CARISOPRODOL 350 MG TAB PO SCH ×3 (08:28→20:19)
[2018-09-08] MEDS: RAMIPRIL 5 MG CAP PO SCH (08:29)
[2018-09-08] MEDS: GABAPENTIN 300 MG CAP PO SCH ×3 (08:29→20:19)
[2018-09-08] MEDS: ISOSORBIDE MON. (IMDUR) 30 MG XR TAB PO SCH (08:30)
[2018-09-08] MEDS: PRIMIDONE 50 MG TAB PO SCH ×2 (08:32→20:19)
[2018-09-08] MEDS: CitaloPRAM (CeleXA) 10 MG TABLET PO SCH (08:32)
[2018-09-08] MEDS: **NOTE PATIENT COMMENT** MISC XX SCH (08:33)
[2018-09-08] MEDS: ENOXAPARIN 40 MG/0.4 ML SYRINGE (J1650) SC SCH (08:33)
[2018-09-08 14:00] VITALS: BP 98/47
[2018-09-08 15:00] VITALS: BP 110/54
[2018-09-08] MEDS: LIDOCAINE 5% (LIDODERM) PATCH TD SCH (20:19)
[2018-09-09] MEDS: LEVOTHYROXINE 112MCG TABLET (0.112MG) PO SCH (05:04)
[2018-09-09] MEDS: MORPHINE 30 MG TAB **MSIR PO PRN ×4 (05:04→21:48)
[2018-09-09 06:00] VITALS: BP 130/59
[2018-09-09] MEDS: metFORMIN (GLUCOPHAGE) 500 MG TAB PO SCH ×2 (10:01→17:27)
[2018-09-09] MEDS: GABAPENTIN 300 MG CAP PO SCH ×3 (10:01→21:04)
[2018-09-09] MEDS: RAMIPRIL 5 MG CAP PO SCH (10:01)
[2018-09-09] MEDS: CitaloPRAM (CeleXA) 10 MG TABLET PO SCH (10:02)
[2018-09-09] MEDS: QUEtiapine FUMARATE 50 MG TAB PO SCH ×2 (10:02→21:04)
[2018-09-09] MEDS: ISOSORBIDE MON. (IMDUR) 30 MG XR TAB PO SCH (10:02)
[2018-09-09] MEDS: ENOXAPARIN 40 MG/0.4 ML SYRINGE (J1650) SC SCH (10:03)
[2018-09-09] MEDS: CARISOPRODOL 350 MG TAB PO SCH ×3 (10:06→21:04)
[2018-09-09] MEDS: PRIMIDONE 50 MG TAB PO SCH ×2 (10:07→21:04)
[2018-09-09] MEDS: **NOTE PATIENT COMMENT** MISC XX SCH (10:08)
[2018-09-09 14:00] VITALS: BP 132/58
[2018-09-09] MEDS: LIDOCAINE 5% (LIDODERM) PATCH TD SCH (21:04)
[2018-09-10] MEDS: LEVOTHYROXINE 112MCG TABLET (0.112MG) PO SCH (05:35)
[2018-09-10 06:00] VITALS: BP 130/71
[2018-09-10] MEDS: **NOTE PATIENT COMMENT** MISC XX SCH (09:00)
[2018-09-10] MEDS: CitaloPRAM (CeleXA) 10 MG TABLET PO SCH (09:14)
[2018-09-10] MEDS: MORPHINE 30 MG TAB **MSIR PO PRN ×3 (09:15→20:33)
[2018-09-10] MEDS: PRIMIDONE 50 MG TAB PO SCH ×2 (09:15→20:31)
[2018-09-10] MEDS: GABAPENTIN 300 MG CAP PO SCH ×3 (09:16→20:31)
[2018-09-10] MEDS: RAMIPRIL 5 MG CAP PO SCH (09:16)
[2018-09-10] MEDS: metFORMIN (GLUCOPHAGE) 500 MG TAB PO SCH ×2 (09:16→18:31)
[2018-09-10] MEDS: CARISOPRODOL 350 MG TAB PO SCH ×3 (09:16→20:32)
[2018-09-10] MEDS: VITAMIN D 50,000 UNITS CAPSULE (ERGOCALCIFEROL 1.25MG) PO SCH (09:16)
[2018-09-10] MEDS: QUEtiapine FUMARATE 50 MG TAB PO SCH ×2 (09:17→20:32)
[2018-09-10] MEDS: ENOXAPARIN 40 MG/0.4 ML SYRINGE (J1650) SC SCH (09:17)
[2018-09-10] MEDS: ISOSORBIDE MON. (IMDUR) 30 MG XR TAB PO SCH (09:17)
[2018-09-10] MEDS: LIDOCAINE 5% (LIDODERM) PATCH TD SCH (20:32)
[2018-09-11] MEDS: MORPHINE 30 MG TAB **MSIR PO PRN ×5 (00:59→21:05)
[2018-09-11 06:00] VITALS: BP 143/67
[2018-09-11] MEDS: LEVOTHYROXINE 112MCG TABLET (0.112MG) PO SCH (06:23)
[2018-09-11] MEDS: GABAPENTIN 300 MG CAP PO SCH ×3 (08:13→21:03)
[2018-09-11] MEDS: ENOXAPARIN 40 MG/0.4 ML SYRINGE (J1650) SC SCH (08:14)
[2018-09-11] MEDS: PRIMIDONE 50 MG TAB PO SCH ×2 (08:14→21:03)
[2018-09-11] MEDS: RAMIPRIL 5 MG CAP PO SCH (08:16)
[2018-09-11] MEDS: ISOSORBIDE MON. (IMDUR) 30 MG XR TAB PO SCH (08:17)
[2018-09-11] MEDS: metFORMIN (GLUCOPHAGE) 500 MG TAB PO SCH ×2 (08:17→18:07)
[2018-09-11] MEDS: CitaloPRAM (CeleXA) 10 MG TABLET PO SCH (08:17)
[2018-09-11] MEDS: QUEtiapine FUMARATE 50 MG TAB PO SCH ×2 (08:17→21:03)
[2018-09-11] MEDS: CARISOPRODOL 350 MG TAB PO SCH ×3 (08:17→21:03)
[2018-09-11] MEDS: **NOTE PATIENT COMMENT** MISC XX SCH (08:18)
[2018-09-11] MEDS: LIDOCAINE 5% (LIDODERM) PATCH TD SCH (21:04)
[2018-09-12] MEDS: LEVOTHYROXINE 112MCG TABLET (0.112MG) PO SCH (05:50)
[2018-09-12] MEDS: MORPHINE 30 MG TAB **MSIR PO PRN ×5 (05:51→22:40)
[2018-09-12 06:00] VITALS: BP 141/61
[2018-09-12 06:46] LABS: HEMATOCRIT 34.7 % (36.0-47.0); HEMOGLOBIN 10.9 g/dl (12.0-15.5); MEAN CORPUSCULAR HGB CONC 31.4 g/dl (32.0-36.5); MEAN CORPUSCULAR VOLUME 98.6 fl (80.0-96.0); PLATELET COUNT, AUTOMATED 171 10^3/uL (150-450); RED BLOOD COUNT 3.52 10^6/uL (4.00-5.40)
[2018-09-12 07:11] LABS: ALBUMIN 3.2 GM/DL (3.2-5.2); ALT/SGPT 20 U/L (12-78); BILIRUBIN,TOTAL 0.2 MG/DL (0.2-1.0); BLOOD UREA NITROGEN 29 MG/DL (7-18); CALCIUM LEVEL 8.6 MG/DL (8.8-10.2); CARBON DIOXIDE LEVEL 29 MEQ/L (21-32); CHLORIDE LEVEL 103 MEQ/L (98-107); CREATININE FOR GFR 0.82 MG/DL (0.55-1.30); GLOMERULAR FILTRATION RATE > 60.0 (>39); GLUCOSE, FASTING 149 MG/DL (70-100); POTASSIUM SERUM 4.9 MEQ/L (3.5-5.1); SODIUM LEVEL 138 MEQ/L (136-145); TOTAL PROTEIN 6.9 GM/DL (6.4-8.2)
[2018-09-12] MEDS: **NOTE PATIENT COMMENT** MISC XX SCH (09:00)
[2018-09-12] MEDS: QUEtiapine FUMARATE 50 MG TAB PO SCH ×2 (09:02→20:20)
[2018-09-12] MEDS: CARISOPRODOL 350 MG TAB PO SCH ×3 (09:02→20:20)
[2018-09-12] MEDS: ENOXAPARIN 40 MG/0.4 ML SYRINGE (J1650) SC SCH (09:02)
[2018-09-12] MEDS: metFORMIN (GLUCOPHAGE) 500 MG TAB PO SCH ×2 (09:02→17:38)
[2018-09-12] MEDS: PRIMIDONE 50 MG TAB PO SCH ×2 (09:03→20:20)
[2018-09-12] MEDS: CitaloPRAM (CeleXA) 10 MG TABLET PO SCH (09:03)
[2018-09-12] MEDS: ISOSORBIDE MON. (IMDUR) 30 MG XR TAB PO SCH (09:03)
[2018-09-12] MEDS: GABAPENTIN 300 MG CAP PO SCH ×3 (09:03→20:20)
[2018-09-12] MEDS: RAMIPRIL 5 MG CAP PO SCH (09:04)
--- NOTE | 2018-09-12 09:11 | IPNPDOC ---
Subjective Date Seen The patient was seen on 09/12/18. Subjective Chief Complaint/HPI Reports pain "9/10" this am, but appears comfortable and states that overall she thinks she is doing more. able to roll over in bed without significant signs of pain. c/O pain at site of epidural injection. No further left great toe pain where she previously had her gout attack. Constitutional: Denies: Chills, Fever Pulmonary: Denies: Dyspnea, Cough Cardiovascular: Denies: Chest Pain, Palpitations Gastrointestinal: Denies: Nausea, Vomiting, Abdominal Pain, Diarrhea, Constipation Objective Physical Examination General Exam: Positive: Alert, Mild Distress Eye Exam: Positive: Conjunctiva & lids normal; Negative: Sclera icteric ENT Exam: Positive: Atraumatic, Mucous membr. moist/pink Chest Exam: Positive: Clear to auscultation, Normal air movement; Negative: Rales, Rhonchi, Wheezing Heart Exam: Positive: Rate Normal, Regular Rhythm, Normal S1, Normal S2; Negative: Irregular Rhythm Abdomen Exam: Positive: Normal bowel sounds, Soft; Negative: Tenderness Extremity Exam: Positive: Tenderness (Tenderness to palpation diffusely from right gluteal area to right foot. Tenderness on right sided lumbar area upon palpation); Negative: Edema, Swelling Skin Exam: Positive: Nl turgor and temperature; Negative: Rash Neuro Exam: Positive: Normal Speech, Sensation Intact Psych Exam: Positive: Mental status NL, Mood NL, Memory Intact Other physical findings sacral fat pad firm and tender at site of epidural injection without warmth or erythema or drainage. Assessment /Plan Problems (1) Intractable low back pain Onset Date: 03/22/2014 Status: Acute Response to Treatment: Stable, Improving Problem Specific Plan: Monitor Clinically, Repeat Labs Problem Text: 09/12 - Now with pain at site of epidural injection - No fever. WBC normal. Sacral fat pad tender and firm - not flocculent. Get Us to r/o fluid collection but clinically abscess seems unlikely. Cont pain control otherwise with MSIR Q4P, Soma 350 TID, Gabapentin 300 TID, Lidoderm patches Cont PT/OT Remains stable for subacute rehab 09/05 S/p 4 trigger point injections at pain clinic. Cont to monitor the pt 09/04 Discussed with pain clinic, they will re-evaluate the pt for trigger point injection. Cont current pain management. Cont to monitor the pt 09/03 Pt s/p steroid injection and epidural; stating back pain relieved after steroid injection. Continue Morphine, Lidocaine patch, and Soma. Cont to monitor the pt 08/29 Start Soma and PO morphine; stop [place] per pain consult. Cont K-pad and lidoderm. Cont to f/u. Pt not cleared by PT to be d/c 08/27 Maybe 09/06 to radiculopathy vs pyelonephritis vs nephrolithiasis. [facility] consult pending. ESR ordered for today to f/u. SPEP pattern indicates acute inflammation. On K-pad, [place], lidoderm patch, and gabapentin. F/u with ESR. Kidney US December 2017 no nephrolithiasis. Consider US kidney d/t UTI with right sided, CVA tenderness, and questionable nephrolithiasis. Not safe for d/c per PT; when safe, d/c to home with services and need home PT. 08/26 - Right lower back pain severe this morning - Not controlled with [place] x 2 this am. ESR has risen to 60 (was normal 08/25) SPEP suggests inflammation GEt CBCD and follow ESR trend - consider B/C and repeat MRI spine I have requested pain clinic consult as her pain seems to be an exacerbation of her usual acute back pain issues 08/21 Cont with [place] PO, she looks good this morning. She did well with PT yesterday who will see her again today. She has a ways to go in regards to strength recovery for d/c as she lives with her disabled , they have minimal home support. 08/20 - Her back pain was working fairly well for her back pain. Getting PT later this am. May need pain management to revisit if [place] not controlled 08/19 pts SEPARATOR TENDER use increased yesterday and she wasn't given [place]. Will d/c SEPARATOR TENDER, and enc nursing to utilize [place]. PT to see today. 08/18 Pt no longer using SEPARATOR TENDER but controlled with [place]. Enc continued use, will start PT, pt and nursing aware. (2) Gluteal pain Status: Acute Response to Treatment: Improving Problem Text: 09/05 s/p 4 trigger point injections on right gluteal region. Pt reported pain improved. Cont to monitor the pt 09/04 TENS ordered. Discussed with pain clinic, they will re-evaluate the pt for trigger point injection. Cont other current pain management. Cont to monitor the pt Right sided gluteal pain radiating down right lower extremity that had been present since admission. S/p spinal steroid injection and epidural. As of 09/03 she had been rating the pain 10/10 (3) Acute gout Status: Resolved Response to Treatment: Controlled Problem Text: 09/03Tophi not observed. Healing wound. Continue to monitor 08/29 Colchicine d/c. Cont to monitor 08/27 Continue Colchicine. Tophi exposed. Non erythematous or warm noted. No to minimal swelling in left big toe. ESR ordered; cont to trend 08/26 - Treated with Colchicine with improvment in toe pain 08/21 improved today. 08/20 - Acute Right great toe pain, tenderness, swelling, erythema - consistent with acute gout Start Colchicine (4) Pyelonephritis Status: Resolved Problem Text: 08/29 S/P 6 days Cephalexin. Afebril w/o leukocytosis; Repeat urine Cx showed no growth 08/26 Right CVA tenderness with low back pain; with dysuria. Afebirle w/o leukocytosis; ESR elevated. UA and urine cx 08/22/18 indicates E-coli infection. Blood Cx ordered. Pt already on PO Cephalexin since 08/23/18. Discussed with lab and no Ca Oxalate crystal noted. PMH of recurrent nephrolithiasis since ; renal US December 2017 neg for stone. Day 6 Cephalexin. Renal US as pt questionable for nephrolithiasis. Repeat urine Cx (5) Hypotension, iatrogenic Onset Date: 03/22/2014 Status: Resolved Problem Specific Plan: Monitor Clinically Problem Text: BP elevated 170s/80s this morning, later decreased to 140s/80s w/o BP meds. Will continue to f/u with vital signs. Resume home med Ramipril with holding parameters (6) Diabetes mellitus Status: Chronic Response to Treatment: Stable Problem Text: 09/05 Most recent POC 109. Cont insulin sliding scale. Cont POC as scheduled 08/26 Metformin B/S stable - d/c FSBS (7) Irregular cardiac rhythm Status: Resolved Response to Treatment: Stable Problem Text: 2 RRR on physical exam 08/21 she was on tele with frequent ectopy 08/20 rate controlled - Exam suggests frequent ectopic beats - possibly bigeminy - Get EKG. labs including electrolytes ordered (8) Hypothyroidism Status: Chronic Problem Text: Free T4 low at 0.77 on08/17/18 with prior T4 wnl; TSH within normal range. PMH of hypothyroidism on home med 100 mcg daily since 2011, last picked up 2017. HPt reported being on 112mcg for about a year. Pt on 112 mcg currently. Recheck TSH and T4 (9) Dysuria Status: Chronic Response to Treatment: Stable Problem Text: 09/04 Urine Cx neg. Continue to monitor the pt. Vital signs as scheduled 09/03 Dysuria for about 2 months. Pt reported urgency today. Urine Cx pos for E- coli when first admitted questionable CVA tenderness; s/p 6 day Keflex. Will order UA to recheck. Vital signs as scheduled and cont to monitor pt. Plan/VTE VTE Prophylaxis Ordered?: Yes (Lovenox) Plan Therapy: PT, OT Diagnostics: Repeat Labs in AM, Obtain Cultures VS, I&O, 24H, Fishbone Vital Signs/I&O Vital Signs Date Time Temp Pulse Resp B/P (MAP) Pulse Ox O2 Delivery O2 Flow Rate FiO2 09/12/18 06:25 18 09/12/18 06:00 98.1 61 141/61 (87) 98 I&O- Last 24 Hours up to 6 AM 09/12/18 06:00 Intake Total 470 ml Output Total 700 ml Balance -230 ml Laboratory Data 24H LABS Laboratory Tests 2 09/12/18 06:20: Nucleated Red Blood Cells % (auto) 0.0, Anion Gap 6L, Glomerular Filtration Rate > 60.0, Blood Urea Nitrogen 29H, Creatinine 0.82, Sodium Level 138, Potassium Level 4.9, Chloride Level 103, Carbon Dioxide Level 29, Calcium Level 8.6L, Aspartate Amino Transf (AST/SGOT) 17, Alanine Aminotransferase (ALT/SGPT) 20, Alkaline Phosphatase 84, Total Bilirubin 0.2, Total Protein 6.9, Albumin 3.2, Albumin/Globulin Ratio 0.86L CBC/BMP Laboratory Tests 09/12/18 06:20 Red Blood Count 3.52 L, Mean Corpuscular Volume 98.6 H, Mean Corpuscular Hemoglobin 31.0, Mean Corpuscular Hemoglobin Concent 31.4 L, Red Cell Distribution Width 14.7 H, Calcium Level 8.6 L, Aspartate Amino Transf (AST/SGOT) 17, Alanine Aminotransferase (ALT/SGPT) 20, Alkaline Phosphatase 84, Total Bilirubin 0.2, Total Protein 6.9, Albumin 3.2 CORIN COX PA-C Sep 12, 2018 09:11
--- NOTE | 2018-09-12 11:28 | REP ---
Soft-tissue ultrasound posterior sacral region. History: Question abscess. Findings: Transverse and sagittal scanning is seen in the retro sacral region in the area pain and area of injection. No soft tissue fluid collection is seen. Normal subcutaneous and muscular tissues are noted. Impression: Negative ultrasound. No evidence of abscess or other abnormal fluid collection. Electronically Signed by Vj Clark MD 09/12/2018 11:20 A
[2018-09-12] MEDS: LIDOCAINE 5% (LIDODERM) PATCH TD SCH (20:20)
[2018-09-13] MEDS: MORPHINE 30 MG TAB **MSIR PO PRN ×4 (05:23→20:05)
[2018-09-13] MEDS: LEVOTHYROXINE 112MCG TABLET (0.112MG) PO SCH (05:23)
[2018-09-13 06:00] VITALS: BP 136/67
[2018-09-13] MEDS: **NOTE PATIENT COMMENT** MISC XX SCH (09:00)
[2018-09-13] MEDS: GABAPENTIN 300 MG CAP PO SCH ×3 (09:04→20:05)
[2018-09-13] MEDS: PRIMIDONE 50 MG TAB PO SCH ×2 (09:05→20:05)
[2018-09-13] MEDS: metFORMIN (GLUCOPHAGE) 500 MG TAB PO SCH ×2 (09:05→17:36)
[2018-09-13] MEDS: RAMIPRIL 5 MG CAP PO SCH (09:07)
[2018-09-13] MEDS: CitaloPRAM (CeleXA) 10 MG TABLET PO SCH (09:08)
[2018-09-13] MEDS: ISOSORBIDE MON. (IMDUR) 30 MG XR TAB PO SCH (09:08)
[2018-09-13] MEDS: QUEtiapine FUMARATE 50 MG TAB PO SCH ×2 (09:08→20:04)
[2018-09-13] MEDS: CARISOPRODOL 350 MG TAB PO SCH ×3 (09:09→20:04)
[2018-09-13] MEDS: ENOXAPARIN 40 MG/0.4 ML SYRINGE (J1650) SC SCH (09:09)
[2018-09-13] MEDS: LIDOCAINE 5% (LIDODERM) PATCH TD SCH (20:04)
[2018-09-14] MEDS: LEVOTHYROXINE 112MCG TABLET (0.112MG) PO SCH (05:14)
[2018-09-14] MEDS: MORPHINE 30 MG TAB **MSIR PO PRN ×5 (05:14→23:59)
[2018-09-14 06:00] VITALS: BP 149/70
[2018-09-14] MEDS: **NOTE PATIENT COMMENT** MISC XX SCH (09:00)
[2018-09-14] MEDS: ENOXAPARIN 40 MG/0.4 ML SYRINGE (J1650) SC SCH (09:07)
[2018-09-14] MEDS: PRIMIDONE 50 MG TAB PO SCH ×2 (09:07→19:58)
[2018-09-14] MEDS: QUEtiapine FUMARATE 50 MG TAB PO SCH ×2 (09:07→19:58)
[2018-09-14] MEDS: CitaloPRAM (CeleXA) 10 MG TABLET PO SCH (09:07)
[2018-09-14] MEDS: CARISOPRODOL 350 MG TAB PO SCH ×3 (09:07→19:58)
[2018-09-14] MEDS: ISOSORBIDE MON. (IMDUR) 30 MG XR TAB PO SCH (09:08)
[2018-09-14] MEDS: metFORMIN (GLUCOPHAGE) 500 MG TAB PO SCH ×2 (09:08→18:40)
[2018-09-14] MEDS: GABAPENTIN 300 MG CAP PO SCH ×3 (09:08→19:58)
[2018-09-14] MEDS: RAMIPRIL 5 MG CAP PO SCH (09:08)
[2018-09-14] MEDS: LIDOCAINE 5% (LIDODERM) PATCH TD SCH (19:58)
[2018-09-15] MEDS: MORPHINE 30 MG TAB **MSIR PO PRN ×4 (05:01→22:22)
[2018-09-15] MEDS: LEVOTHYROXINE 112MCG TABLET (0.112MG) PO SCH (05:01)
[2018-09-15 06:00] VITALS: BP 131/63
[2018-09-15] MEDS: **NOTE PATIENT COMMENT** MISC XX SCH (09:00)
[2018-09-15] MEDS: PRIMIDONE 50 MG TAB PO SCH ×2 (09:14→22:20)
[2018-09-15] MEDS: ENOXAPARIN 40 MG/0.4 ML SYRINGE (J1650) SC SCH (09:14)
[2018-09-15] MEDS: RAMIPRIL 5 MG CAP PO SCH (09:15)
[2018-09-15] MEDS: CARISOPRODOL 350 MG TAB PO SCH ×3 (09:15→22:20)
[2018-09-15] MEDS: GABAPENTIN 300 MG CAP PO SCH ×3 (09:16→22:20)
[2018-09-15] MEDS: QUEtiapine FUMARATE 50 MG TAB PO SCH ×2 (09:16→22:20)
[2018-09-15] MEDS: ISOSORBIDE MON. (IMDUR) 30 MG XR TAB PO SCH (09:16)
[2018-09-15] MEDS: CitaloPRAM (CeleXA) 10 MG TABLET PO SCH (09:16)
[2018-09-15] MEDS: metFORMIN (GLUCOPHAGE) 500 MG TAB PO SCH ×2 (09:16→17:49)
[2018-09-15] MEDS: LIDOCAINE 5% (LIDODERM) PATCH TD SCH (22:20)
[2018-09-16 06:00] VITALS: BP 130/61
[2018-09-16] MEDS: LEVOTHYROXINE 112MCG TABLET (0.112MG) PO SCH (06:09)
[2018-09-16] MEDS: GABAPENTIN 300 MG CAP PO SCH ×3 (08:53→21:58)
[2018-09-16] MEDS: PRIMIDONE 50 MG TAB PO SCH ×2 (08:53→21:58)
[2018-09-16] MEDS: QUEtiapine FUMARATE 50 MG TAB PO SCH ×2 (08:54→21:58)
[2018-09-16] MEDS: CitaloPRAM (CeleXA) 10 MG TABLET PO SCH (08:54)
[2018-09-16] MEDS: ISOSORBIDE MON. (IMDUR) 30 MG XR TAB PO SCH (08:54)
[2018-09-16] MEDS: RAMIPRIL 5 MG CAP PO SCH (08:55)
[2018-09-16] MEDS: CARISOPRODOL 350 MG TAB PO SCH ×3 (08:56→21:58)
[2018-09-16] MEDS: MORPHINE 30 MG TAB **MSIR PO PRN ×3 (08:56→17:28)
[2018-09-16] MEDS: metFORMIN (GLUCOPHAGE) 500 MG TAB PO SCH ×2 (08:56→17:02)
[2018-09-16] MEDS: ENOXAPARIN 40 MG/0.4 ML SYRINGE (J1650) SC SCH (08:57)
[2018-09-16] MEDS: **NOTE PATIENT COMMENT** MISC XX SCH (08:57)
--- NOTE | 2018-09-16 16:24 | IPN ---
DATE: 09/16/2018 CHIEF COMPLAINT: Right low back pain. REFERRING PROVIDER: Dr. Jakub Burgess HISTORY OF PRESENT ILLNESS: Ynes is a 78-year-old female, well known to our practice, who has been over on three occasions for three injection trials to try to help with her pain situation. She had trigger point injections, right low back, on 09/03/2018, lumbar epidural steroid injection on September 02, and a right sacroiliac joint (SIJ) injection on August 28. Continues with significant pain without reduction, although patient states that she did get better after each of these injections. Continues to require morphine 15 mg on a regular basis. The patient states that it only helps for about an hour. History of multiple medication trials, both narcotic and nonnarcotic, to help with her pain without improvement over the course of the past month. Dr. Burgess had noted a significant tender area over her right gluteal bursal region. Again, she is very tender over this area. We will bring her over tomorrow, on September 17, for a right gluteal bursal steroid injection. I would recommend a trial of Nucynta 50 mg every 6 hours if needed for severe pain as opposed to morphine 15 mg. Thank you for allowing us to participate in the care of your patient. FELICIA
[2018-09-16] MEDS ORDERED: TAPENTADOL 50 MG TABLET (NUCYNTA) PO PRN (21:00)
[2018-09-16] MEDS: LIDOCAINE 5% (LIDODERM) PATCH TD SCH (21:59)
[2018-09-17] MEDS: metFORMIN (GLUCOPHAGE) 500 MG TAB PO SCH ×2 (01:08→08:00)
[2018-09-17] MEDS: LEVOTHYROXINE 112MCG TABLET (0.112MG) PO SCH (05:42)
[2018-09-17 06:00] VITALS: BP 117/58
[2018-09-17] MEDS: RAMIPRIL 5 MG CAP PO SCH (08:44)
[2018-09-17] MEDS: CitaloPRAM (CeleXA) 10 MG TABLET PO SCH (08:45)
[2018-09-17] MEDS: VITAMIN D 50,000 UNITS CAPSULE (ERGOCALCIFEROL 1.25MG) PO SCH (08:45)
[2018-09-17] MEDS: ISOSORBIDE MON. (IMDUR) 30 MG XR TAB PO SCH (08:46)
[2018-09-17] MEDS: PRIMIDONE 50 MG TAB PO SCH ×2 (08:46→20:26)
[2018-09-17] MEDS: GABAPENTIN 300 MG CAP PO SCH ×3 (08:46→20:26)
[2018-09-17] MEDS: QUEtiapine FUMARATE 50 MG TAB PO SCH ×2 (08:46→20:26)
[2018-09-17] MEDS: CARISOPRODOL 350 MG TAB PO SCH ×3 (08:47→20:26)
[2018-09-17] MEDS: **NOTE PATIENT COMMENT** MISC XX SCH (09:00)
--- NOTE | 2018-09-17 09:00 | IPNPDOC ---
Subjective Date Seen The patient was seen on 09/17/18. Subjective Chief Complaint/HPI Patient sitting comfortably in bed as I entered the room. She denies any back pain at present. Constitutional: Denies: Chills, Fever Pulmonary: Denies: Dyspnea, Cough Cardiovascular: Denies: Chest Pain, Palpitations Gastrointestinal: Denies: Nausea, Vomiting, Diarrhea, Constipation Musculoskeletal: Reports: Other Symptoms (Chronic low back pain ) Psych: Reports: Mood Normal Objective Physical Examination General Exam: Positive: Alert, Mild Distress Eye Exam: Positive: Conjunctiva & lids normal; Negative: Sclera icteric ENT Exam: Positive: Atraumatic, Mucous membr. moist/pink Chest Exam: Positive: Clear to auscultation, Normal air movement; Negative: Rales, Rhonchi, Wheezing Heart Exam: Positive: Rate Normal, Regular Rhythm, Normal S1, Normal S2; Negative: Irregular Rhythm Abdomen Exam: Positive: Normal bowel sounds, Soft; Negative: Tenderness Extremity Exam: Negative: Edema, Tenderness, Swelling Skin Exam: Positive: Nl turgor and temperature; Negative: Rash Neuro Exam: Positive: Normal Speech, Sensation Intact Psych Exam: Positive: Mental status NL, Mood NL, Memory Intact Assessment /Plan Problems (1) Intractable low back pain Onset Date: 03/22/2014 Status: Acute Response to Treatment: Stable, Improving Problem Specific Plan: Monitor Clinically, Repeat Labs Problem Text: 09/17/18: Patient is scheduled for a right gluteal bursal steroid injection today by Jillian Hernandez. Patient is currently awaiting a bed for rehab. She will continue with pain control measures. Jillian Hernandez recommended Nucynta 50 mg every 6 hours if needed for severe pain as opposed to morphine 15 mg. This was started 09/16/18 with one dose administered yesterday at 23:00 09/12 - Now with pain at site of epidural injection - No fever. WBC normal. Sacral fat pad tender and firm - not flocculent. Get Us to r/o fluid collection but clinically abscess seems unlikely. Cont pain control otherwise with MSIR Q4P, Soma 350 TID, Gabapentin 300 TID, Lidoderm patches Cont PT/OT Remains stable for subacute rehab 09/05 S/p 4 trigger point injections at pain clinic. Cont to monitor the pt 09/04 Discussed with pain clinic, they will re-evaluate the pt for trigger point injection. Cont current pain management. Cont to monitor the pt 09/03 Pt s/p steroid injection and epidural; stating back pain relieved after steroid injection. Continue Morphine, Lidocaine patch, and Soma. Cont to monitor the pt 08/29 Start Soma and PO morphine; stop [place] per pain consult. Cont K-pad and lidoderm. Cont to f/u. Pt not cleared by PT to be d/c 08/27 Maybe / to radiculopathy vs pyelonephritis vs nephrolithiasis. [facility] consult pending. ESR ordered for today to f/u. SPEP pattern indicates acute inflammation. On K-pad, [place], lidoderm patch, and gabapentin. F/u with ESR. Ki dney US December 2017 no nephrolithiasis. Consider US kidney d/t UTI with right sided, CVA tenderness, and questionable nephrolithiasis. Not safe for d/c per PT; when safe, d/c to home with services and need home PT. 08/26 - Right lower back pain severe this morning - Not controlled with [place] x 2 this am. ESR has risen to 60 (was normal 08/25) SPEP suggests inflammation GEt CBCD and follow ESR trend - consider B/C and repeat MRI spine I have requested pain clinic consult as her pain seems to be an exacerbation of her usual acute back pain issues 08/21 Cont with [place] PO, she looks good this morning. She did well with PT yesterday who will see her again today. She has a ways to go in regards to strength recovery for d/c as she lives with her disabled , they have minimal home support. 08/20 - Her back pain was working fairly well for her back pain. Getting PT later this am. May need pain management to revisit if [place] not controlled 08/19 pts CAN FILLER use increased yesterday and she wasn't given [place]. Will d/c CAN FILLER, and enc nursing to utilize Brix[place]. PT to see today. 08/18 Pt no longer using CAN FILLER but controlled with Brix[place]. Enc continued use, will start PT, pt and nursing aware. (2) Gluteal pain Status: Acute Response to Treatment: Improving Problem Text: 09/17/18: Gluteal injections as discussed above 09/05 s/p 4 trigger point injections on right gluteal region. Pt reported pain improved. Cont to monitor the pt 09/04 TENS ordered. Discussed with pain clinic, they will re-evaluate the pt for trigger point injection. Cont other current pain management. Cont to monitor the pt Right sided gluteal pain radiating down right lower extremity that had been present since admission. S/p spinal steroid injection and epidural. As of 09/03 she had been rating the pain 10/10 (3) Acute gout Status: Resolved Response to Treatment: Controlled Problem Text: 09/03Tophi not observed. Healing wound. Continue to monitor 08/29 Colchicine d/c. Cont to monitor 08/27 Continue Colchicine. Tophi exposed. Non erythematous or warm noted. No to minimal swelling in left big toe. ESR ordered; cont to trend 08/26 - Treated with Colchicine with improvment in toe pain 08/21 improved today. 08/20 - Acute Right great toe pain, tenderness, swelling, erythema - consistent with acute gout Start Colchicine (4) Pyelonephritis Status: Resolved Problem Text: 08/29 S/P 6 days Cephalexin. Afebril w/o leukocytosis; Repeat urine Cx showed no growth 08/26 Right CVA tenderness with low back pain; with dysuria. Afebirle w/o leukocytosis; ESR elevated. UA and urine cx 08/22/18 indicates E-coli infection. Blood Cx ordered. Pt already on PO Cephalexin since 08/23/18. Discussed with lab and no Ca Oxalate crystal noted. PMH of recurrent nephrolithiasis since ; renal US December 2017 neg for stone. Day 6 Cephalexin. Renal US as pt questionable for nephrolithiasis. Repeat urine Cx (5) Hypotension, iatrogenic Onset Date: 03/22/2014 Status: Resolved Problem Specific Plan: Monitor Clinically Problem Text: BP elevated 170s/80s this morning, later decreased to 140s/80s w/o BP meds. Will continue to f/u with vital signs. Resume home med Ramipril with holding parameters (6) Diabetes mellitus Status: Chronic Response to Treatment: Stable Problem Text: 09/17/18: Remains on Metformin. Last BG 09/12/18 149 09/05 Most recent POC 109. Cont insulin sliding scale. Cont POC as scheduled 08/26 Metformin B/S stable - d/c FSBS (7) Irregular cardiac rhythm Status: Resolved Response to Treatment: Stable Problem Text: 09/05 RRR on physical exam 08/21 she was on tele with frequent ectopy 08/20 rate controlled - Exam suggests frequent ectopic beats - possibly bigeminy - Get EKG. labs including electrolytes ordered (8) Hypothyroidism Status: Chronic Problem Text: Free T4 low at 0.77 on08/17/18 with prior T4 wnl; TSH within normal range. PMH of hypothyroidism on home med 100 mcg daily since 2011, last picked up 2016. HPt reported being on 112mcg for about a year. Pt on 112 mcg currently. Recheck TSH and T4 (9) Dysuria Status: Chronic Response to Treatment: Stable Problem Text: 09/04 Urine Cx neg. Continue to monitor the pt. Vital signs as scheduled 09/03 Dysuria for about 2 months. Pt reported urgency today. Urine Cx pos for E- coli when first admitted questionable CVA tenderness; s/p 6 day Keflex. Will order UA to recheck. Vital signs as scheduled and cont to monitor pt. Plan/VTE VTE Prophylaxis Ordered?: Yes (Lovenox) Plan Therapy: PT, OT Diagnostics: Repeat Labs in AM, Obtain Cultures VS, I&O, 24H, Fishbone Vital Signs/I&O Vital Signs Date Time Temp Pulse Resp B/P (MAP) Pulse Ox O2 Delivery O2 Flow Rate FiO2 09/17/18 06:00 97.6 74 17 117/58 (60) 94 I&O- Last 24 Hours up to 6 AM 09/17/18 06:00 Intake Total 1450 ml Output Total 1100 ml Balance 350 ml JOLANTA DENTON Sep 17, 2018 09:00
[2018-09-17] MEDS ORDERED: BUPIVACAINE HCL 0.25% 30 ML VIAL As Ordered ONE (15:17)
[2018-09-17] MEDS ORDERED: TRIAMCINOLONE ACETONIDE SUSP 40 MG/ML VIAL (J3301) As Ordered ONE (15:17)
[2018-09-17] MEDS ORDERED: BUPIVACAINE HCL 0.25% 10 ML VIAL As Ordered ONE (15:17)
[2018-09-17] MEDS ORDERED: oxyCODONE 5MG TAB As Ordered ONE (15:56)
[2018-09-17] MEDS ORDERED: diazePAM 5 MG TAB As Ordered ONE (15:57)
[2018-09-17] MEDS: LIDOCAINE 5% (LIDODERM) PATCH TD SCH (20:26)
[2018-09-18] MEDS: LEVOTHYROXINE 112MCG TABLET (0.112MG) PO SCH (05:26)
[2018-09-18] MEDS: PRIMIDONE 50 MG TAB PO SCH ×2 (08:57→20:02)
[2018-09-18] MEDS: CitaloPRAM (CeleXA) 10 MG TABLET PO SCH (08:57)
[2018-09-18] MEDS: CARISOPRODOL 350 MG TAB PO SCH ×3 (08:57→20:02)
[2018-09-18] MEDS: GABAPENTIN 300 MG CAP PO SCH ×3 (08:58→20:02)
[2018-09-18] MEDS: metFORMIN (GLUCOPHAGE) 500 MG TAB PO SCH ×2 (08:58→17:09)
[2018-09-18] MEDS: QUEtiapine FUMARATE 50 MG TAB PO SCH ×2 (08:58→20:02)
[2018-09-18] MEDS: RAMIPRIL 5 MG CAP PO SCH (08:59)
[2018-09-18] MEDS: ISOSORBIDE MON. (IMDUR) 30 MG XR TAB PO SCH (08:59)
[2018-09-18] MEDS: **NOTE PATIENT COMMENT** MISC XX SCH (09:00)
[2018-09-18] MEDS: ENOXAPARIN 40 MG/0.4 ML SYRINGE (J1650) SC SCH (09:00)
[2018-09-18] MEDS: LIDOCAINE 5% (LIDODERM) PATCH TD SCH (20:03)
[2018-09-19 06:00] VITALS: BP 130/80
[2018-09-19] MEDS: LEVOTHYROXINE 112MCG TABLET (0.112MG) PO SCH (06:04)
[2018-09-19] MEDS: **NOTE PATIENT COMMENT** MISC XX SCH (09:00)
[2018-09-19] MEDS: GABAPENTIN 300 MG CAP PO SCH (09:37)
[2018-09-19] MEDS: ENOXAPARIN 40 MG/0.4 ML SYRINGE (J1650) SC SCH (09:37)
[2018-09-19] MEDS: CitaloPRAM (CeleXA) 10 MG TABLET PO SCH (09:37)
[2018-09-19] MEDS: RAMIPRIL 5 MG CAP PO SCH (09:39)
[2018-09-19] MEDS: CARISOPRODOL 350 MG TAB PO SCH (09:40)
[2018-09-19] MEDS: PRIMIDONE 50 MG TAB PO SCH (09:40)
[2018-09-19] MEDS: metFORMIN (GLUCOPHAGE) 500 MG TAB PO SCH (09:40)
[2018-09-19] MEDS: QUEtiapine FUMARATE 50 MG TAB PO SCH (09:40)
[2018-09-19 09:41] VITALS: BP 153/95
[2018-09-19] MEDS: ISOSORBIDE MON. (IMDUR) 30 MG XR TAB PO SCH (09:41)
[2018-09-19] MEDS ORDERED: NUCY50TA19 PO (10:30)
[2018-09-19] MEDS ORDERED: GABA-843 PO (10:30)
[2018-09-19] MEDS ORDERED: LIDO5TD TD (10:30)
[2018-09-19] MEDS ORDERED: CARI1TAB7 PO (10:30)
[2018-09-19] MEDS ORDERED: DRIS50003 PO (10:30)
[2018-09-19 14:00] VITALS: BP 113/69
[2018-09-20] MEDS ORDERED: DRIS50003 PO (16:51)
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
== END 2018-09-19 15:13 | disposition home health service (06) | DRG 552 ==
LOC: M MSPAV 16:17
PROVIDERS: ADMIT Family Medicine; ATTEND Family Medicine
PROC: 3E0R3BZ Introduction of Anesthetic Agent into Spinal Canal, Percutaneous Approach (ICD-10-PCS; principal; 2018-08-28)
PROC: 3E0U33Z Introduction of Anti-inflammatory into Joints, Percutaneous Approach (ICD-10-PCS; 2018-08-28)
PROC: 3E0R3KZ Introduction of Other Diagnostic Substance into Spinal Canal, Percutaneous Approach (ICD-10-PCS; 2018-09-02)
DX: M46.1 Sacroiliitis, not elsewhere classified (principal); N10 Acute pyelonephritis; E11.9 Type 2 diabetes mellitus without complications; I10 Essential (primary) hypertension; I67.2 Cerebral atherosclerosis; E03.9 Hypothyroidism, unspecified; M51.16 Intervertebral disc disorders with radiculopathy, lumbar region; M51.34 Other intervertebral disc degeneration, thoracic region; M48.061 Spinal stenosis, lumbar region without neurogenic claudication; I95.89 Other hypotension; B96.20 Unspecified Escherichia coli [E. coli] as the cause of diseases classified elsewhere; K27.9 Peptic ulcer, site unspecified, unspecified as acute or chronic, without hemorrhage or perforation; I49.9 Cardiac arrhythmia, unspecified; M1A.0721 Idiopathic chronic gout, left ankle and foot, with tophus (tophi); Z87.442 Personal history of urinary calculi; Z79.82 Long term (current) use of aspirin; Z79.899 Other long term (current) drug therapy; Z79.84 Long term (current) use of oral hypoglycemic drugs; Z90.49 Acquired absence of other specified parts of digestive tract; Z87.81 Personal history of (healed) traumatic fracture; Z98.49 Cataract extraction status, unspecified eye

== ENCOUNTER → 2018-09-04 | Outpatient (CLI) | payer MEDICARE ==
[~2018-09-04] MED LIST changes: +ASPI1TAB PO; +BUPIVACAINE HCL 0.25% 10 ML VIAL As Ordered ONE; +BUPIVACAINE HCL 0.25% 30 ML VIAL As Ordered ONE; +CARI1TAB7 PO; +CITA-229 PO; +DRIS50003 PO; +GABA-843 PO; +METO1TAB87 PO; +NUCY50TA19 PO; +OXYC1TAB23 PO; +POTA10TA16 PO; +SYNT112T2 PO; +TRIAMCINOLONE ACETONIDE SUSP 40 MG/ML VIAL (J3301) As Ordered ONE; +XARE10TA PO; +diazePAM 5 MG TAB As Ordered ONE; +oxyCODONE 5MG TAB As Ordered ONE
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
== END ==
LOC: M PAIN 13:00
PROVIDERS: ATTEND Anesthesiology
DX: M79.18 Myalgia, other site (principal); M54.5 Low back pain; E11.9 Type 2 diabetes mellitus without complications; I10 Essential (primary) hypertension; E03.9 Hypothyroidism, unspecified; Z79.01 Long term (current) use of anticoagulants; Z79.84 Long term (current) use of oral hypoglycemic drugs; Z79.899 Other long term (current) drug therapy; Z88.2 Allergy status to sulfonamides; Z86.73 Personal history of transient ischemic attack (TIA), and cerebral infarction without residual deficits
CPT/HCPCS: 20552; J3301

== ENCOUNTER 2018-09-20 14:54 | Inpatient (IN) | payer MEDICARE ==
[~2018-09-20] VITALS: Ht 157.5 cm; Wt 70.6 kg
[~2018-09-20 14:54] MED LIST changes: -BUPIVACAINE HCL 0.25% 10 ML VIAL As Ordered ONE; -BUPIVACAINE HCL 0.25% 30 ML VIAL As Ordered ONE; -METO1TAB87 PO; -TRIAMCINOLONE ACETONIDE SUSP 40 MG/ML VIAL (J3301) As Ordered ONE; -XARE10TA PO; -diazePAM 5 MG TAB As Ordered ONE; -oxyCODONE 5MG TAB As Ordered ONE
[2018-09-20] MEDS ORDERED: MORPHINE 4 MG/ML 1ML VIAL/SYRINGE (J2270) IV ONE ×3 (15:30→19:45)
[2018-09-20 15:43] LABS: BASO % 0.4 % (0.0-1.0); EOS % 0.5 % (0.0-3.0); HEMATOCRIT 34.6 % (36.0-47.0); HEMOGLOBIN 11.4 g/dl (12.0-15.5); LYMPH # 2.4 10^3/uL (1.5-4.5); MEAN CORPUSCULAR HEMOGLOBIN 31.1 pg (27.0-33.0); MEAN CORPUSCULAR HGB CONC 32.9 g/dl (32.0-36.5); MEAN CORPUSCULAR VOLUME 94.5 fl (80.0-96.0); MONO # 0.6 10^3/uL (0.0-0.8); NEUTROPHILS # 5.4 10^3/uL (1.8-7.7); NEUTROPHILS % 63.7 % (36.0-66.0); PLATELET COUNT, AUTOMATED 197 10^3/uL (150-450); RED BLOOD COUNT 3.66 10^6/uL (4.00-5.40); WHITE BLOOD COUNT 8.4 10^3/uL (4.0-10.0)
[2018-09-20] MEDS ORDERED: ONDANSETRON 4MG/2ML VIAL (J2405) IV ONE (15:45)
[2018-09-20] MEDS ORDERED: NS 1,000 ML IV SCH (15:45)
[2018-09-20 16:03] LABS: BLOOD UREA NITROGEN 23 MG/DL (7-18); CALCIUM LEVEL 8.4 MG/DL (8.8-10.2); CARBON DIOXIDE LEVEL 28 MEQ/L (21-32); CHLORIDE LEVEL 104 MEQ/L (98-107); CPK CREATINE PHOSPHOKINASE 62 U/L (26-192); CREATININE FOR GFR 0.87 MG/DL (0.55-1.30); GLOMERULAR FILTRATION RATE > 60.0 (>39); GLUCOSE, FASTING 121 MG/DL (70-100); MB/CK RELATIVE INDEX 3.39 (< OR =4); SODIUM LEVEL 138 MEQ/L (136-145); TROPONIN I 0.02 NG/ML (< 0.10)
[2018-09-20] MEDS ORDERED: LORazepam 2 MG/ML VIAL (J2060) IV STA (16:07)
[2018-09-20] MEDS ORDERED: DRIS50003 PO (16:51)
[2018-09-20] MEDS ORDERED: ACETAMINOPHEN TAB 650MG DOSE (2X325MG) PO PRN (20:30)
[2018-09-20] MEDS: NS 1,000 ML IV SCH (20:50)
[2018-09-20] MEDS ORDERED: GABAPENTIN 300 MG CAP PO SCH (21:00)
[2018-09-20] MEDS ORDERED: PRIMIDONE 50 MG TAB PO SCH (21:00)
[2018-09-20] MEDS ORDERED: CARISOPRODOL 350 MG TAB PO SCH (21:00)
[2018-09-20] MEDS: HYDROMORPHONE HCL 0.5 MG/ 0.5 ML SYRINGE (J1170 PER 1) IV PRN (21:00)
[2018-09-20] MEDS ORDERED: QUEtiapine FUMARATE 50 MG TAB PO SCH (21:00)
[2018-09-20] MEDS: **NOTE PATIENT COMMENT** MISC XX SCH (21:01)
[2018-09-20] MEDS: LIDOCAINE 5% (LIDODERM) PATCH TD SCH (21:45)
[2018-09-21] VITALS (13 sets, daily range): BP systolic 139–200; BP diastolic 69–110; O2SAT 96–98
[2018-09-21] MEDS: HYDROMORPHONE HCL 0.5 MG/ 0.5 ML SYRINGE (J1170 PER 1) IV PRN ×6 (00:19→22:24)
[2018-09-21] MEDS ORDERED: HYDROmorphone 2 MG TAB PO PRN ×2 (04:45→07:30)
[2018-09-21] MEDS: ONDANSETRON 4MG/2ML VIAL (J2405) IV PRN ×2 (04:50→17:23)
[2018-09-21] MEDS: LORazepam 2 MG/ML VIAL (J2060) IV PRN ×2 (04:50→12:40)
[2018-09-21] MEDS: LEVOTHYROXINE 112MCG TABLET (0.112MG) PO SCH (05:46)
--- NOTE | 2018-09-21 06:57 | ECGEPIP ---
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
[2018-09-21 07:01] LABS: HEMATOCRIT 34.1 % (36.0-47.0); HEMOGLOBIN 11.2 g/dl (12.0-15.5); MEAN CORPUSCULAR HEMOGLOBIN 30.9 pg (27.0-33.0); MEAN CORPUSCULAR HGB CONC 32.8 g/dl (32.0-36.5); MEAN CORPUSCULAR VOLUME 93.9 fl (80.0-96.0); PLATELET COUNT, AUTOMATED 177 10^3/uL (150-450); RED BLOOD COUNT 3.63 10^6/uL (4.00-5.40)
[2018-09-21 07:15] LABS: BLOOD UREA NITROGEN 19 MG/DL (7-18); CALCIUM LEVEL 8.5 MG/DL (8.8-10.2); CARBON DIOXIDE LEVEL 27 MEQ/L (21-32); CHLORIDE LEVEL 104 MEQ/L (98-107); GLOMERULAR FILTRATION RATE > 60.0 (>39); GLUCOSE, FASTING 148 MG/DL (70-100); POTASSIUM SERUM 4.1 MEQ/L (3.5-5.1); SODIUM LEVEL 138 MEQ/L (136-145)
[2018-09-21] MEDS ORDERED: HYDROmorphone HCL 2 MG/ML 1ML VIAL (J1170) As Ordered ONE (07:52)
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
--- NOTE | 2018-09-21 08:03 | REP ---
CT CERVICAL SPINE WITHOUT CONTRAST: 09/20/2018. COMPARISON: 03/04/2013 CLINICAL HISTORY: Trauma, patient fell. TECHNIQUE: Trauma protocol was utilized. Patient's head is slightly tilted in the gantry. The neck is straighter. FINDINGS: Cervical spondylosis with a few millimeters of anterolisthesis of C3 on C4. A few millimeters of retrolisthesis of C5 on C6. Posterior osteophytes C5 on C6. Disc space narrowing at those two levels, less at other levels, and no evidence of compression fracture or focal lesion within the bone. The dens and lateral masses of C1 are symmetric in their relationship, and there is sclerosis and narrowing along the dens articulation with the anterior arch of C1. The ring of C1 is intact. Craniocervical junction and cervical thoracic junction align normally. No prevertebral swelling. Spinous processes, lamina, pedicles, facets, transverse processes, and transverse foramina without fracture. There is some facet arthropathy at multiple levels. Central canal shows no significant central canal stenosis at any disc level. There is foraminal encroachment minimally on the left at C6-7, bilaterally at C5-6, more on the right at C3-4. IMPRESSION: 1. Diffuse degenerative disc changes with cervical spondylosis greatest at C5-6 and posterior osteophytes at that level. No compression deformity or destructive lesion. There is some foraminal encroachment due to uncinate spurring. No central canal stenosis. No acute compression fracture or malalignment. Electronically Signed by Edwardo Mota MD 09/21/2018 08:24 A
--- NOTE | 2018-09-21 08:06 | REP ---
AP PORTABLE CHEST: 09/20/2018. COMPARISON: 08/01/2016, 02/16/2012. CLINICAL HISTORY: Cough. FINDINGS: AP chest shows lungs adequately inflated. Some underlying interstitial fibrotic change. I do not see a dense consolidation or definite effusion. Lung detail is somewhat limited in over-penetrated exam. Heart has left atrial enlargement, but borderline for cardiomegaly. No vascular redistribution or rory edema. Calcified tortuous aorta, unchanged from previous studies. Airway midline. No gross widening of the mediastinum. Dextroconvex curve midthoracic spine, otherwise intact bony thorax. IMPRESSION: 1. Left atrial enlargement and borderline heart size without vascular redistribution or pulmonary edema. No definite effusion or dense consolidation visible. 2. Tortuous calcified aorta without gross aneurysm. Airway intact. 3. Dextroconvex curve in the thoracic spine without acute bony finding. Electronically Signed by Edwardo Mota MD 09/21/2018 08:24 A
--- NOTE | 2018-09-21 08:08 | REP ---
LEFT HIP TWO VIEWS: 09/20/2018. CLINICAL HISTORY: Trauma, patient fell. TECHNIQUE: AP and cross-table lateral views were obtained. FINDINGS: AP view is limited, but there appears to be overlap in the femoral neck. I am suspicion for nondisplaced fracture there. I cannot see a displaced fracture on the cross-table lateral view, but I do see a lucency at the base of the femoral neck on that cross-table lateral view without angulation or rotation. This may be near the lesser trochanter and at the neck/trochanteric junction. Regardless, I am suspicious for hip fracture. Further characterization needed, CT would likely be helpful. Electronically Signed by Edwardo Mota MD 09/21/2018 08:25 A
[2018-09-21] MEDS ORDERED: ONDANSETRON 4MG/2ML VIAL (J2405) IV ONE (08:15)
--- NOTE | 2018-09-21 08:28 | REP ---
CT LEFT FEMUR WITHOUT CONTRAST: 09/20/2018. CLINICAL HISTORY: Trauma, patient fell, suspicion for nondisplaced hip fracture on radiograph. FINDINGS: Noncontrast examination of the entire femur was ordered. Coronal and sagittal bone window reconstructions with axial soft-tissue and bone window settings reviewed. There is, in fact, a nondisplaced fracture of the hip which was suggested on the cross-table lateral view better than the frontal view. This extends obliquely from the inferior aspect of the intertrochanteric region at its junction with the base of the femoral neck towards the greater trochanter. It is only through the anterior 40% of the width of the bone from anterior to posterior, although it extends superior to inferior through the entire trochanter. Remainder of the femoral neck and femoral head are intact. No displaced or angulation. Hip joint space shows no acute finding. No avulsion of bone at the inferior aspect. At the superior aspect of the trochanter, there appears to be another nondisplaced fracture line or lucency in the greater trochanter superiorly and medially. The remainder of the intertrochanteric region posteriorly and the entire femoral shaft and condyles of the distal femur are intact. There is a soft tissue calcification adjacent to the anterior column of the acetabulum near the acetabular roof, likely chondrocalcinosis. No other findings. IMPRESSION: 1. Confirmation of a nondisplaced fracture intertrochanteric region anteriorly from the lesser trochanteric side in a vertical linear/oblique fashion towards the greater trochanter and a smaller nondisplaced fracture line at the greater trochanter perpendicular to this. There is no other fracture of the intertrochanteric region, femoral neck or head, and the shaft of the femur and distal femur are intact. This fracture is best seen on the coronal reconstructions, and I have placed arrows on several images. Electronically Signed by Edwardo Mota MD 09/21/2018 08:39 A
[2018-09-21 09:28] LABS: INR 1.13; PROTHROMBIN TIME 14.7 SECONDS (12.1-14.4)
[2018-09-21 09:29] LABS: PARTIAL THROMBOPLASTIN TIME 31.1 SECONDS (25.4-37.6)
--- NOTE | 2018-09-21 09:48 | HPE ---
DATE OF ADMISSION: 09/20/2018 CHIEF COMPLAINT: Fractured left hip. HISTORY OF PRESENT ILLNESS: This 78-year-old woman has a history of chronic back pain and was discharged from the hospital yesterday after 5 weeks in the hospital with intractable radiating low back pain. She was seen by the pain clinic and given a number of trigger points injections. She had had lumbar epidural steroids on September 02, sacroiliac joint injection on August 28, and a trigger point injection on the right on September 03, and on September 17 had a right gluteal bursal steroid injection which seemed to help her a lot, was discharged yesterday, however today around noontime, she tripped over her Bruno smith at home, went down on the floor with immediate left hip pain. X-rays confirmed fracture and is being admitted for pain control. Goal is to have surgical hip repair to maximize her speed of recovery. PAST HISTORY: She has diabetes mellitus. She says she has had two strokes in the past. She has had transient ischemic attacks (TIAs) in the past. She was diagnosed 4 years ago with some vertebral artery stenosis. She is treated for hypothyroidism. She has kidney stones. She has had some chronic back pain due to thoracic and lumbar spine degenerative disc disease. 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 She has had bilateral cataract extraction. She has had a T12 compression fracture. She had a fractured wrist on the left as a child. She has had an appendectomy. She has had open kidney stone removal 50 years ago. She had tibia fracture in 1970. She had laparotomy in 1974, hysterectomy in 1974, left breast lump lumpectomy in 1976. She has had right carpal tunnel release. She had a colonoscopy nearly 7 years ago and EGD also 7 years ago. CURRENT MEDICATION REGIMEN: Is supposed to be: - carisoprodol 350 mg three times a day - gabapentin 300 mg three times a day - lidocaine one patch at bedtime to her low back - Nucynta 50 mg every 6 hours p.r.n. - metformin 500 mg twice a day - ramipril 10 mg daily - levothyroxine 112 mcg daily - citalopram 10 mg daily - isosorbide 30 mg daily is on the list. She says she is taking it for a noncardiac indication, and she denies any sort of cardiac problems. - primidone 100 mg twice a day for tremors - quetiapine 50 mg twice a day, which she says she was put on this because she had a lot of anxiety related to the of two of her daughters within a short period time. - She takes vitamin D 50,000 units weekly. ALLERGIES: She is allergic to: 1. SULFA. 2. She indicates that MORPHINE injections do not do a whole lot for her. FAMILY HISTORY: Father in his 50s of his esophageal cancer. Her mother in her 80s, had a heart attack. Brother in 60s of heart attack. A son has hypothyroidism. SOCIAL HISTORY: She lives with her . She is a never smoker. Does not drink alcohol. She is usually seen in the [facility] with Dr. Burgess and Dr. Freed as her listed providers. Interestingly, reviewing her records, she was seen in the office in January, did not keep follow-up appointment a month later and was next seen in August complaining of back pain related to a fall that she took around Jeovanny time. REVIEW OF SYSTEMS: No fevers, chills, sweats, weight-loss. Says her appetite is good. No chewing or swallowing problems. No vision or hearing problems. She denies trouble swallowing. Denies cough or shortness of breath. Denies chest pains or palpitations. Denies nausea, vomiting, abdominal pain, diarrhea, constipation. She has chronic low back pain radiating to the right most of the time. Usually does not have any edema. She does have some chronic tremor. No bruising or bleeding problems. At this point, depression is controlled. PHYSICAL EXAMINATION: On examination this is an older white female with some masked facies, tremor and bradykinesia. She is alert, oriented and cooperative. She is in pain if she has any movement in her left hip. She is normocephalic. Extraocular movements are full. Pupils equal, round regular and react to light. Mouth and throat is unremarkable. Tongue is midline. Speech is clear. There is no neck masses, tenderness or adenopathy. No carotid bruits. Her lungs are clear. Heart has a regular rhythm. Not hearing any murmur, click or gallop. She is mildly tachycardic, but she is in pain at this time. She does have pain in her hip when either leg is maneuvered. There is no edema. Pedal pulses are good. Cranial nerves III-XII within normal limits, but for the masked facies. Salon Stylist are symmetric. Deep tendon reflexes are diminished. Babinski signs are negative bilaterally. She does have the tremor as noted above. Labs done today show hemoglobin of 11.4, WBCs 8400, platelet count 197,000. BUN is 23, creatinine 0.87, sodium 138, potassium 4.0. CPKs are within normal range. Troponin is 0.02. EKG shows sinus tachycardia. Nonspecific ST-T changes evident. She did have some PVCs noted. Her pain x-ray suggested that she had a intertrochanteric fracture on the left. She had a CT that confirms a nondisplaced fracture of the intertrochanteric region anteriorly from the lesser trochanteric in a vertical linear oblique fashion towards the greater trochanter. A smaller nondisplaced fracture line at the greater trochanter perpendicular to this. No other fractures. She also had C-spine CT. Chest x-ray showed left atrial enlargement, borderline heart size. No definite effusion or consolidation, calcified tortuous aorta. Some dextroconvex scoliosis in the thoracic spine. ASSESSMENT: 78-year-old patient who has chronic low back pain radiating to the right hip with recent treatment for same who tripped over her dog this afternoon and now has a fracture of the left hip. She also has a history of hypothyroidism, diabetes, history of strokes or TIAs, depression, chronic tremor. PLAN: The patient be admitted to our facility so she can get her hip surgery done and probably subacute rehab would be best for her. It does not appear that her can be of much help for her. Based upon her current examination I think she is a satisfactory candidate for surgery and for anticoagulation afterwards. Her most recent injections were only trigger point injections. Her lumbar epidural steroid injection was more than 2 weeks ago and should be able to have an anticoagulants for that. Her blood pressure is up at this time, I think that is due mostly to pain. Also, she still in pain despite having gotten 4 mg of morphine approximately an hour ago. I think we would be better off trying to give her some Dilaudid. Looking at her recent history, she is certainly not narcotic naive. [facility]
[2018-09-21] MEDS: CitaloPRAM (CeleXA) 10 MG TABLET PO SCH (10:11)
[2018-09-21] MEDS: NS 1,000 ML IV SCH ×2 (10:11→17:00)
--- NOTE | 2018-09-21 10:35 | HPE ---
DATE OF ADMISSION: 09/20/2018 CHIEF COMPLAINT: Left intertrochanteric hip fracture. HISTORY OF PRESENT ILLNESS: This 78-year-old female sustained a trip and fall injury yesterday afternoon. She tripped and fell, got caught up with her dog in and around the washroom in her house. She was seen in the [facility] ED where she was found to have a left hip intertrochanteric fracture. She was seen by the hospitalist and admitted. She had no prior hip pain or falls prior to this. No chest pain, shortness of breath or problems with loss of consciousness or head injury at the time of injury. PAST MEDICAL HISTORY: Hypothyroidism. Hypertension. Chronic low back pain. Arrhythmia. Right-sided weakness due to apparently a stroke. Abdominal pain. Type 2 diabetes. Kidney pain. Pyelonephritis. Gluteal pain. Now a left hip fracture. MEDICATIONS: - Tylenol - carisoprodol - citalopram - hydromorphone - levothyroxine - lidocaine patch - lorazepam - ondansetron ALLERGIES: 1. SULFA DRUGS/SULF DRUG CROSS REACTORS. PAST SURGICAL HISTORY: Hysterectomy. Pyelogram. Cystoscopy. Spinal canal injections. SOCIAL HISTORY: She lives with her Joe. His number [phone]. Normally ambulates with at least a cane and sometimes with a walker. She is a nonsmoker. REVIEW OF SYSTEMS: Negative for fever, chills, weight loss, weight gain, cough, chest pain, shortness of breath or any other constitutional symptoms. PHYSICAL EXAM: Vital signs this morning 96% on 2 liters nasal prongs. Blood pressure 184/96. Pulse rate 104. Respiratory rate 20. She is alert and oriented times three. A little bit tearful in her affect. No other obvious injuries. She could wiggle both her toes. Examination of the hips revealed pain on the left side. Nothing on the right side. She is able to actively passively move the right lower extremity without difficulty. Both feet were warm and well perfused with good pedal pulses. She is able to wiggle her toes, dorsiflex, plantar flex her foot. No obvious injury of the knee. Radiographs were reviewed. This showed suspicion for an undisplaced intratrochanteric hip fracture right at the base of the neck on the left hip. No other injuries seen. CT scan was also obtained. This shows a intertrochanteric/approximately very low basicervical femur fracture of the left hip. This is undisplaced. Laboratory examination revealed a hemoglobin of 11.2 down to 11.4 the day before. No coagulation factors are back yet. Chemistries reveal normal electrolytes, slightly low calcium at 8.5. ASSESSMENT/PLAN: This 78-year-old female with a nondisplaced left intertrochanteric hip fracture. I have discussed the pros and cons, risks and benefits of going forward with surgery. This surgery would be a short intramedullary nail. Specific surgical risks include but are not limited to infection, neurovascular injury, bleeding, stiffness, instability, need for further surgeries, delayed mal or nonunion as well as anesthetic complications, and other risks. She would like to go ahead and we signed the consent today. I marked her hip. She was okay to get blood products if she needed them and we signed the consent for this as well. She is still waiting on clearance from the hospitalist; however, we will keep her nothing by mouth in chance that we can get this done today. I will also add coagulation factors to her blood work if that is not ordered.
[2018-09-21] MEDS ORDERED: ceFAZolin 2 GM/D5W 50 ML IV BAG (J0690 PER 500MG) As Ordered ONE (13:57)
[2018-09-21] MEDS ORDERED: TRANEXAMIC ACID 100 MG/ML 10ML VIAL As Ordered ONE (14:19)
[2018-09-21] MEDS ORDERED: BUPIVACAINE HCL 0.5% 30 ML VIAL As Ordered ONE (14:34)
[2018-09-21] MEDS ORDERED: PROPOFOL 200 MG/20 ML VIAL As Ordered ONE (14:34)
[2018-09-21] MEDS ORDERED: PHENYLephrine HCL 500 MCG/5 ML (100MCG/ML) SYRINGE (J2370) As Ordered ONE ×2 (14:34→14:36)
[2018-09-21] MEDS ORDERED: KETAMINE HCL 200 MG/20 ML VIAL As Ordered ONE (14:34)
[2018-09-21] MEDS ORDERED: LIDOCAINE 2% INJ 100 MG/5 ML SDV (FOR ANES.) As Ordered ONE (14:34)
[2018-09-21] MEDS ORDERED: MIDAZOLAM INJ 2 MG/2 ML VIAL (J2250) As Ordered ONE (14:34)
[2018-09-21] MEDS ORDERED: ONDANSETRON 4MG/2ML VIAL (J2405) As Ordered ONE ×2 (15:14→15:15)
[2018-09-21] MEDS ORDERED: LR 1,000 ML IV SCH (15:45)
[2018-09-21] MEDS ORDERED: fentaNYL 100 MCG/2 ML INJECTION (J3010) IV PRN (15:45)
[2018-09-21] MEDS ORDERED: PERCOCET 5MG/325MG TAB PO PRN (15:45)
[2018-09-21] MEDS ORDERED: ONDANSETRON 4MG/2ML VIAL (J2405) IV PRN (15:45)
[2018-09-21] MEDS ORDERED: HYDROMORPHONE HCL 0.5 MG/ 0.5 ML SYRINGE (J1170 PER 1) IV PRN (15:45)
[2018-09-21] MEDS ORDERED: ACETAMINOPHEN TAB 650MG DOSE (2X325MG) PO PRN (17:00)
[2018-09-21] MEDS ORDERED: MORPHINE 4 MG/ML 1ML VIAL/SYRINGE (J2270) IV PRN (17:00)
[2018-09-21] MEDS: PERCOCET 5MG/325MG TAB PO PRN (17:23)
[2018-09-21] MEDS: RAMIPRIL 5 MG CAP PO SCH (18:45)
[2018-09-21] MEDS: LIDOCAINE 5% (LIDODERM) PATCH TD SCH (20:37)
[2018-09-22] VITALS (26 sets, daily range): BP systolic 133–184; BP diastolic 62–84; O2SAT 85–98
[2018-09-22] MEDS: NS 1,000 ML IV SCH ×2 (02:16→09:39)
[2018-09-22] MEDS: HYDROMORPHONE HCL 0.5 MG/ 0.5 ML SYRINGE (J1170 PER 1) IV PRN ×2 (02:25→14:52)
[2018-09-22] MEDS: PERCOCET 5MG/325MG TAB PO PRN ×4 (04:14→23:47)
[2018-09-22] MEDS: LEVOTHYROXINE 112MCG TABLET (0.112MG) PO SCH (05:50)
--- NOTE | 2018-09-22 06:30 | RO ---
DATE OF PROCEDURE: 09/20/2018 PREOPERATIVE DIAGNOSIS: Left hip intertrochanteric fracture. POSTOPERATIVE DIAGNOSIS: Left hip intertrochanteric fracture. PROCEDURE: TFN-A left hip PROCEDURE PERFORMED: TFN-A left hip. SURGEON: Dr. Mingo Garnica FLIGHT SUPERINTENDENT: ANESTHESIA: Spinal anesthetic. SENIOR SAFETY MANAGEMENT CONSULTANT: Dr. Balderas IMPLANTS: Synthes TFN-A 200 mm long 125 degrees. 80 mm long helical blade and 40 mm long distal interlock screw. OPERATIVE PREAMBLE: This 78-year-old female had a trip and fall in her home. She sustained a nondisplaced left intertrochanteric hip fracture. This was confirmed on x-rays and CT scan performed in the emergency department. I saw and assessed her. We talked about the pros, cons, risks and benefits of going ahead with surgery in the form of IM nail. Specific surgical risks include but are not limited to infection, neurovascular injury, bleeding, stiffness, delayed, mal or nonunion, as well as, anesthetic complications and . She wished to go ahead and I marked the site and we signed the consent form. OPERATIVE PROCEDURE: The was patient brought to the operating theater and administered a spinal anesthetic. Two grams of IV Ancef and 2 grams of intravenous tranexamic acid were both administered. We confirmed the site of surgery on the left hip as well as the patient. A reoperative time out was performed. The left leg was prepped and draped in the usual sterile fashion after the patient was placed on the fracture table with the left leg in the traction berg without traction and the right leg in the well leg berg. AP and lateral radiographs were taken to confirm the site. There was an undisplaced intratrochanteric hip fracture. Once the prep had thoroughly dried, we placed the shower curtain style drape and then draped that over the opposite side. I began by making a 2-inch incision centered at the level of the greater trochanter and three fingerbreadths proximal to that. I carried this dissection down through skin and subcutaneous tissue to the level of the greater trochanter. I passed a 3.2-mm partially threaded guidewire at the center of the greater trochanter down to the level lesser trochanter on AP and lateral radiographs. I then used the channel reamer over top of this using the soft tissue protector. I then selected a 200 mm long and 125 degrees Synthes TFN-A. This passed down to about just proximal to the isthmus and then became quite tight, so I took out the nail and inserted the ball-tipped guidewire and reamed using 12.5-mm reamer over top of this. I then reinserted the nail and it slid down easily. I malleted this down to an appropriate level. I then used the drop down 125 degrees guide to dominick the skin incision. Using percutaneous stab technique and the drop down guide, I then inserted the 3.2-mm pressure partially threaded guidewire in the center of the femoral head and neck on both the AP and lateral radiographs. This measured approximately 87 mm to the subchondral bone and as such I reamed to 80 mm and then inserted an 80 mm helical blade. I locked the implant proximally. I then used another percutaneous technique to insert the distal interlocking screw. This was 40 mm long. I then removed the guide took final AP and lateral radiographs. The fracture was anatomically reduced and the nail in proper position with the tip to apex distance 125 mm on visual estimation. The wounds were thoroughly irrigated using normal saline with Ancef solution. The subcutaneous tissues closed with interrupted #2-0 Vicryl sutures and the skin with solomon. The skin was cleaned with wet and dry dressing followed by application of sterile Xeroform and small cloth tape dressings. They were taken out of the traction setup and then transferred off the operating table and taken to the postanesthetic care unit in stable condition. All sponge, needle, sponge and instrument counts were correct. There were no complications. Blood loss was estimated about 10 mL. Plan for the patient is to be weight bearing as tolerated. Physical therapy (PT) and occupational therapy (OT) to ensure safety for mobilization. Venous thromboembolism (VTE) prophylaxis will be achieved with Xarelto 10 mg by mouth once daily. Will discontinue the solomon at 2 week follow-up and I will see in followup in 2 weeks time. I will follow while admitted to the hospital.
[2018-09-22] MEDS: ONDANSETRON 4MG/2ML VIAL (J2405) IV PRN ×2 (06:53→13:14)
--- NOTE | 2018-09-22 07:06 | REP ---
C-ARM LEFT HIP: 09/21/2018. Comparison: Left hip and CT 09/20/2018. Clinical history: ORIF for nondisplaced intertrochanteric fracture left hip. Findings: Ten images from C-arm fluoroscopy provided to Dr. Garnica of the orthopedic division. A short intramedullary lilliam to the proximal one-third of the femoral shaft with a single transfixing screw as well as a blade paddle device into the femoral neck and head with anatomic alignment. Fluoroscopy time: 1 minute 50 seconds. Electronically Signed by Edwardo Mota MD 09/22/2018 09:21 A
[2018-09-22] MEDS: MORPHINE 4 MG/ML 1ML VIAL/SYRINGE (J2270) IV PRN ×2 (07:55→20:37)
[2018-09-22 08:12] LABS: HEMATOCRIT 29.7 % (36.0-47.0); HEMOGLOBIN 9.6 g/dl (12.0-15.5); MEAN CORPUSCULAR HEMOGLOBIN 31.1 pg (27.0-33.0); MEAN CORPUSCULAR HGB CONC 32.3 g/dl (32.0-36.5); MEAN CORPUSCULAR VOLUME 96.1 fl (80.0-96.0); PLATELET COUNT, AUTOMATED 130 10^3/uL (150-450); RED BLOOD COUNT 3.09 10^6/uL (4.00-5.40); WHITE BLOOD COUNT 8.7 10^3/uL (4.0-10.0)
--- NOTE | 2018-09-22 08:14 | IPN ---
DATE OF SERVICE: 09/22/2018 CHIEF COMPLAINT: Postoperative day 1 left hip IM nail for undisplaced intertrochanteric hip fracture. HISTORY OF PRESENT ILLNESS: This is a 78-year-old female seen today in the [facility]. She is doing well postoperative day 1. No concerns. Minimal pain. No concerns from the nurses. PHYSICAL EXAMINATION: Vital signs: Blood pressure 142/52. 93% on 2 liters nasal prongs. She is alert and oriented times three. She responds appropriately. She is able to wiggle her toes, dorsiflex and plantarflex her foot. Foot is warm and well perfused. The dressings are dry with no evidence of strike through. Thigh compartment soft. Laboratory exam reveals hemoglobin to be 11.2 down from 11.4. Assessmnent / Plan: 78-year-old female who is postoperative day 1. Weightbearing as tolerated on the left side. VTE prophylaxis Xarelto 10 mg by mouth once daily. MTDD
[2018-09-22 08:21] LABS: BLOOD UREA NITROGEN 12 MG/DL (7-18); CALCIUM LEVEL 7.7 MG/DL (8.8-10.2); CARBON DIOXIDE LEVEL 25 MEQ/L (21-32); CHLORIDE LEVEL 106 MEQ/L (98-107); CREATININE FOR GFR 0.64 MG/DL (0.55-1.30); GLOMERULAR FILTRATION RATE > 60.0 (>39); GLUCOSE, FASTING 136 MG/DL (70-100); POTASSIUM SERUM 3.8 MEQ/L (3.5-5.1); SODIUM LEVEL 137 MEQ/L (136-145)
[2018-09-22] MEDS: **NOTE PATIENT COMMENT** MISC XX SCH (09:00)
[2018-09-22] MEDS: RAMIPRIL 5 MG CAP PO SCH (09:31)
[2018-09-22] MEDS: MOM 30ML SUSPENSION UDC PO SCH (09:31)
[2018-09-22] MEDS: MIRALAX *UNIT DOSE* 17GM PACKET PO SCH (09:31)
[2018-09-22] MEDS: SENOKOT S TAB PO SCH ×2 (09:32→20:37)
--- NOTE | 2018-09-22 09:49 | IPNPDOC ---
Subjective Date Seen The patient was seen on 09/22/18. Subjective Chief Complaint/HPI pt this morning without new concerns. She reports adequate pain control. General: Reports: Fatigue Constitutional: Denies: Chills, Fever Pulmonary: Denies: Dyspnea, Cough Cardiovascular: Denies: Chest Pain, Palpitations Gastrointestinal: Denies: Nausea, Vomiting, Diarrhea Neurological: Denies: Weakness Psych: Reports: Mood Normal Objective Physical Examination General Exam: Positive: Alert, No Acute Distress ENT Exam: Positive: Mucous membr. moist/pink Neck Exam: Positive: Supple; Negative: JVD Chest Exam: Positive: Clear to auscultation, Normal air movement Heart Exam: Positive: Rate Normal, Normal S1, Normal S2 Abdomen Exam: Positive: Normal bowel sounds, Soft; Negative: Tenderness Extremity Exam: Negative: Edema Neuro Exam: Positive: Normal Speech Psych Exam: Positive: Mental status NL, Mood NL Assessment /Plan Problems (1) Closed left hip fracture Status: Acute Response to Treatment: Stable Problem Specific Plan: Monitor Clinically, Repeat Labs Problem Text: OR 2/16, POD 3. Pain control, anticoagulation, PT per Ortho, anticipate either ARU or STR, pt aware, PT anf PFS aware and working with PT on progressing. (2) Hypothyroidism Status: Chronic Problem Specific Plan: Monitor Clinically Problem Text: Cont Synthroid replacement (3) Hypertension Status: Chronic Response to Treatment: Stable Problem Specific Plan: Monitor Clinically Problem Text: Pressures slightly elevated, cont to monitor, suspect pain control related. Plan/VTE VTE Prophylaxis Ordered?: Yes VS, I&O, 24H, Fishbone Vital Signs/I&O Vital Signs Date Time Temp Pulse Resp B/P (MAP) Pulse Ox O2 Delivery O2 Flow Rate FiO2 09/22/18 09:32 16 09/22/18 09:31 150/65 09/22/18 08:00 97.8 85 96 09/22/18 06:00 Nasal Cannula 2.0 I&O- Last 24 Hours up to 6 AM 09/22/18 06:00 Intake Total 3277.5 ml Output Total 810 ml Balance 2467.5 ml Laboratory Data 24H LABS Laboratory Tests 2 09/21/18 12:43: Bedside Glucose (Misc Panel) 126H 09/21/18 17:32: Bedside Glucose (Misc Panel) 181H 09/21/18 20:05: Bedside Glucose (Misc Panel) 155H 09/22/18 06:33: Bedside Glucose (Misc Panel) 137H 09/22/18 07:26: Nucleated Red Blood Cells % (auto) 0.0, Anion Gap 6L, Glomerular Filtration Rate > 60.0, Blood Urea Nitrogen 12, Creatinine 0.64, Sodium Level 137, Potassium Level 3.8, Chloride Level 106, Carbon Dioxide Level 25, Calcium Level 7.7L CBC/BMP Laboratory Tests 09/22/18 07:26 Red Blood Count 3.09 L, Mean Corpuscular Volume 96.1 H, Mean Corpuscular Hemoglobin 31.1, Mean Corpuscular Hemoglobin Concent 32.3, Red Cell Distribution Width 13.9, Calcium Level 7.7 L ARIELLA BURRIS PA-C Sep 22, 2018 09:48
[2018-09-22] MEDS ORDERED: METOPROLOL 5 MG/5 ML VIAL IV PRN (10:30)
[2018-09-22] MEDS ORDERED: METOPROLOL 5 MG/5 ML VIAL As Ordered ONE (10:34)
[2018-09-22] MEDS: CitaloPRAM (CeleXA) 10 MG TABLET PO SCH (10:52)
[2018-09-22] MEDS ORDERED: SLF 3 ML SYR IV PRN (11:00)
[2018-09-22] MEDS: SLF 3 ML SYR IV SCH ×2 (14:00→20:38)
--- NOTE | 2018-09-22 16:24 | ECGEPIP ---
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
[2018-09-22] MEDS: RIVAROXABAN 10 MG TAB (XARELTO) PO SCH (18:09)
[2018-09-22] MEDS: LIDOCAINE 5% (LIDODERM) PATCH TD SCH (20:37)
[2018-09-23] VITALS (24 sets, daily range): BP systolic 136–168; BP diastolic 42–81; O2SAT 84–100
[2018-09-23] MEDS: MORPHINE 4 MG/ML 1ML VIAL/SYRINGE (J2270) IV PRN (04:19)
[2018-09-23] MEDS: ONDANSETRON 4MG/2ML VIAL (J2405) IV PRN ×2 (04:24→17:29)
[2018-09-23] MEDS: SLF 3 ML SYR IV SCH ×3 (04:26→21:52)
[2018-09-23 05:45] LABS: HEMATOCRIT 27.2 % (36.0-47.0); MEAN CORPUSCULAR HEMOGLOBIN 30.8 pg (27.0-33.0); MEAN CORPUSCULAR HGB CONC 33.1 g/dl (32.0-36.5); MEAN CORPUSCULAR VOLUME 93.2 fl (80.0-96.0); PLATELET COUNT, AUTOMATED 130 10^3/uL (150-450); RED BLOOD COUNT 2.92 10^6/uL (4.00-5.40); WHITE BLOOD COUNT 7.2 10^3/uL (4.0-10.0)
[2018-09-23] MEDS: LEVOTHYROXINE 112MCG TABLET (0.112MG) PO SCH (05:57)
[2018-09-23 05:58] LABS: BLOOD UREA NITROGEN 12 MG/DL (7-18); CALCIUM LEVEL 7.7 MG/DL (8.8-10.2); CARBON DIOXIDE LEVEL 29 MEQ/L (21-32); CHLORIDE LEVEL 105 MEQ/L (98-107); CREATININE FOR GFR 0.54 MG/DL (0.55-1.30); GLOMERULAR FILTRATION RATE > 60.0 (>39); GLUCOSE, FASTING 139 MG/DL (70-100); POTASSIUM SERUM 3.6 MEQ/L (3.5-5.1); SODIUM LEVEL 138 MEQ/L (136-145)
--- NOTE | 2018-09-23 07:46 | IPN ---
DATE: 09/23/2018 CHIEF COMPLAINT: Postoperative day #2 left hip intertrochanteric fracture fixed with TFN-A. HISTORY OF PRESENT ILLNESS: This is a 78-year-old female seen today in the [facility]riquez. She is doing well. No complaints of pain. States that she is trying to mobilize. Some concerns from physiotherapy that she is still requiring two assists and a lift to get up. PHYSICAL EXAM: Her vital signs this morning 99% on 2 liters nasal cannula. Blood pressure 164/81. Pulse rate 94. Respiratory 27 to 18. Examination of the left the left hip reveal the Optifoam dressings to be in situ. No strikethrough. Thigh compartments are soft. She is alert and oriented times three. Mood and affect is a little bit flat but she does respond appropriately. She is able to wiggle her toes and dorsiflex and plantarflex her foot. Foot is warm and well perfused. Good pedal pulses. Blood work revealed her hemoglobin to be 90.0. Electrolytes are normal. ASSESSMENT AND PLAN: This 78-year-old female we will ask if she can go eventually to the rehab unit. This is of course in mind that she is a little bit slow to mobilize, however, we did encourage her today. We will try to get an incentive spirometer as well as encouraging sequential compression devices (SCDs) while she is in the bed. Xarelto 10 mg by mouth once a day for deep venous thrombosis (DVT) prophylaxis.
[2018-09-23] MEDS: MIRALAX *UNIT DOSE* 17GM PACKET PO SCH (09:00)
[2018-09-23] MEDS: CitaloPRAM (CeleXA) 10 MG TABLET PO SCH (09:30)
[2018-09-23] MEDS: SENOKOT S TAB PO SCH ×2 (09:31→21:50)
[2018-09-23] MEDS: RAMIPRIL 5 MG CAP PO SCH (09:31)
[2018-09-23] MEDS: MOM 30ML SUSPENSION UDC PO SCH (09:33)
[2018-09-23] MEDS: MORPHINE 15 MG SA TAB PO SCH ×2 (09:33→21:52)
--- NOTE | 2018-09-23 10:10 | IPNPDOC ---
Subjective Date Seen The patient was seen on 09/23/18. Subjective Chief Complaint/HPI Pt this morning is really feeling good. She states that she did well getting up and to the bathroom. Her pain is controlled. She went into a flutter yest am, not recurrence, asymptomatic. General: Denies: Fatigue Constitutional: Denies: Chills, Fever Pulmonary: Denies: Dyspnea, Cough Cardiovascular: Denies: Chest Pain, Palpitations Gastrointestinal: Denies: Nausea, Vomiting Neurological: Reports: Weakness Psych: Reports: Mood Normal Objective Physical Examination General Exam: Positive: Alert, No Acute Distress ENT Exam: Positive: Mucous membr. moist/pink Neck Exam: Positive: Supple; Negative: JVD Chest Exam: Positive: Clear to auscultation, Normal air movement Heart Exam: Positive: Rate Normal, Normal S1, Normal S2 Abdomen Exam: Positive: Normal bowel sounds, Soft; Negative: Tenderness Extremity Exam: Negative: Edema Neuro Exam: Positive: Normal Speech Psych Exam: Positive: Mental status NL, Mood NL Assessment /Plan Assessment Agree with below. Metoprolol ordered for rate control in future episodes of atrial flutter, and better control of current HTN. Discussed likely DC to rehab with patient. -- CDT Problems (1) Closed left hip fracture Status: Acute Response to Treatment: Stable Problem Specific Plan: Monitor Clinically, Repeat Labs Problem Text: 09/23 POD 4, anticipate STR, pt requests Gov[place]ur, PFS aware. 09/22 OR 09/20, POD 3. Pain control, anticoagulation, PT per Ortho, anticipate either ARU or STR, pt aware, PT anf PFS aware and working with PT on progressing. (2) Hypothyroidism Status: Chronic Problem Specific Plan: Monitor Clinically Problem Text: Cont Synthroid replacement (3) Hypertension Status: Chronic Response to Treatment: Stable Problem Specific Plan: Monitor Clinically Problem Text: Pressures slightly elevated, cont to monitor, suspect pain cont rol related. (4) Atrial flutter by electrocardiogram Status: Acute Response to Treatment: Stable Problem Specific Plan: Monitor Clinically Problem Text: Nursing called to report HR 160s, appears pt received 1 dose Lopressor 5 mg, converted, has been in NSR since. She was asymptomatic. ECHO ordered. EKG obtained to confirm. Plan/VTE VTE Prophylaxis Ordered?: Yes VS, I&O, 24H, Fishbone Vital Signs/I&O Vital Signs Date Time Temp Pulse Resp B/P (MAP) Pulse Ox O2 Delivery O2 Flow Rate FiO2 09/23/18 09:33 20 94 1.0 09/23/18 09:31 156/68 09/23/18 08:00 97.9 100 09/23/18 06:00 Nasal Cannula I&O- Last 24 Hours up to 6 AM 09/23/18 06:00 Intake Total 800 ml Output Total 750 ml Balance 50 ml Laboratory Data 24H LABS Laboratory Tests 2 09/23/18 05:20: Nucleated Red Blood Cells % (auto) 0.0, Anion Gap 4L, Glomerular Filtration Rate > 60.0, Blood Urea Nitrogen 12, Creatinine 0.54L, Sodium Level 138, Potassium Level 3.6, Chloride Level 105, Carbon Dioxide Level 29, Calcium Level 7.7L CBC/BMP Laboratory Tests 09/23/18 05:20 Red Blood Count 2.92 L, Mean Corpuscular Volume 93.2, Mean Corpuscular Hemoglobin 30.8, Mean Corpuscular Hemoglobin Concent 33.1, Red Cell Distribution Width 13.5, Calcium Level 7.7 L ARIELLA BURRIS PA-C Sep 23, 2018 10:10 AFSANEH REILLY DO Sep 23, 2018 23:46
[2018-09-23] MEDS: **NOTE PATIENT COMMENT** MISC XX SCH (10:15)
[2018-09-23] MEDS: PERCOCET 5MG/325MG TAB PO PRN ×2 (12:06→16:44)
[2018-09-23] MEDS: RIVAROXABAN 10 MG TAB (XARELTO) PO SCH (18:32)
--- NOTE | 2018-09-23 20:00 | ECHO ---
DATE OF STUDY: 09/23/2018 REFERRING PHYSICIAN: Solitario Stokes MD INDICATION: Abnormal electrocardiogram (ECG). HEIGHT: 158 cm. WEIGHT: 69 kg. DIMENSIONS: IVS 0.9 LV 4.2 LVPW 1.1 LA 3.7 Aorta 2.7 IVC 0.9 Mitral E wave velocity 77 A wave 105 E prime septal 7.3 E prime lateral 6.6 FINDINGS: The study is of rather difficult technical quality with limited visualization. Apparently, only supine examination was performed due to lack of patient's cooperation. The patient is in sinus rhythm. Left ventricle is normal size and grossly preserved systolic function. I estimate ejection fraction (EF) around 60%. No distinct segmental wall motion abnormalities are seen, but due to limitation of the study, they could have been easily missed. Right ventricle appears normal. Both atria appear grossly normal for the patient's age. Aortic root appears normal. Aortic arch and abdominal aorta were not well visualized. There is a pericardial fat pad but no effusion. Aortic valve appears sclerotic but had three cusps and normal mobility. There are also mild degenerative abnormalities of mitral valve with mitral annular calcifications. Tricuspid valve and pulmonic valves appear normal. Doppler interrogation reveals no aortic stenosis or insufficiency. There is trace mitral insufficiency and trace tricuspid insufficiency. Calculated pulmonary artery pressure is within normal limits. Pulmonic valve is functionally competent. Mitral inflow pattern and tissue Doppler imaging of mitral annulus reveal grade 1 diastolic dysfunction. CONCLUSIONS: 1. The study is of limited technical quality. 2. Normal left ventricle (LV) size with grossly preserved LV systolic function and grade 1 diastolic dysfunction. 3. No hemodynamically significant valvular disease. 4. Likely normal central venous pressure and normal pulmonary artery pressure. 5. Prominent pericardial fat pad. COMMENTS: Subacute bacterial endocarditis (SBE) prophylaxis not recommended. [facility]
[2018-09-23] MEDS: METOPROLOL TART 25 MG TABLET PO SCH (21:50)
[2018-09-23] MEDS: LIDOCAINE 5% (LIDODERM) PATCH TD SCH (21:50)
[2018-09-24] VITALS (22 sets, daily range): BP systolic 122–172; BP diastolic 67–78; O2SAT 90–98
[2018-09-24] MEDS: PERCOCET 5MG/325MG TAB PO PRN ×2 (00:23→15:56)
[2018-09-24 05:09] LABS: HEMATOCRIT 29.2 % (36.0-47.0); HEMOGLOBIN 9.7 g/dl (12.0-15.5); MEAN CORPUSCULAR HEMOGLOBIN 31.2 pg (27.0-33.0); MEAN CORPUSCULAR HGB CONC 33.2 g/dl (32.0-36.5); MEAN CORPUSCULAR VOLUME 93.9 fl (80.0-96.0); PLATELET COUNT, AUTOMATED 157 10^3/uL (150-450); RED BLOOD COUNT 3.11 10^6/uL (4.00-5.40); WHITE BLOOD COUNT 6.4 10^3/uL (4.0-10.0)
[2018-09-24 05:33] LABS: BLOOD UREA NITROGEN 13 MG/DL (7-18); CALCIUM LEVEL 7.8 MG/DL (8.8-10.2); CARBON DIOXIDE LEVEL 29 MEQ/L (21-32); CHLORIDE LEVEL 104 MEQ/L (98-107); CREATININE FOR GFR 0.53 MG/DL (0.55-1.30); GLOMERULAR FILTRATION RATE > 60.0 (>39); GLUCOSE, FASTING 133 MG/DL (70-100); POTASSIUM SERUM 3.8 MEQ/L (3.5-5.1); SODIUM LEVEL 137 MEQ/L (136-145)
[2018-09-24] MEDS: LEVOTHYROXINE 112MCG TABLET (0.112MG) PO SCH (05:58)
[2018-09-24] MEDS: SLF 3 ML SYR IV SCH ×3 (05:58→22:00)
[2018-09-24] MEDS: MIRALAX *UNIT DOSE* 17GM PACKET PO SCH (09:00)
[2018-09-24] MEDS: **NOTE PATIENT COMMENT** MISC XX SCH (09:00)
[2018-09-24] MEDS: MOM 30ML SUSPENSION UDC PO SCH (09:00)
[2018-09-24] MEDS: SENOKOT S TAB PO SCH ×2 (09:00→21:00)
[2018-09-24] MEDS: METOPROLOL TART 25 MG TABLET PO SCH ×2 (09:41→21:00)
[2018-09-24] MEDS: CitaloPRAM (CeleXA) 10 MG TABLET PO SCH (09:41)
[2018-09-24] MEDS: RAMIPRIL 5 MG CAP PO SCH (09:42)
[2018-09-24] MEDS: MORPHINE 15 MG SA TAB PO SCH ×2 (09:42→21:01)
--- NOTE | 2018-09-24 13:27 | IPNPDOC ---
Subjective Date Seen The patient was seen on 09/24/18. Subjective Chief Complaint/HPI Patient lying comfortable in bed as I entered the room. She had already worked with PT in the morning. She reported to be feeling well. Constitutional: Denies: Chills, Fever Pulmonary: Denies: Dyspnea, Cough Cardiovascular: Denies: Chest Pain, Palpitations, Orthopnea, Edema Gastrointestinal: Denies: Nausea, Vomiting, Diarrhea Psych: Reports: Mood Normal Objective Physical Examination General Exam: Positive: Alert, No Acute Distress ENT Exam: Positive: Mucous membr. moist/pink Neck Exam: Positive: Supple; Negative: JVD Chest Exam: Positive: Clear to auscultation, Normal air movement Heart Exam: Positive: Rate Normal, Normal S1, Normal S2 Abdomen Exam: Positive: Normal bowel sounds, Soft; Negative: Tenderness Extremity Exam: Negative: Edema Neuro Exam: Positive: Normal Speech Psych Exam: Positive: Mental status NL, Mood NL Assessment /Plan Problems (1) Closed left hip fracture Status: Acute Response to Treatment: Stable Problem Specific Plan: Monitor Clinically, Repeat Labs Problem Text: 09/24/18:PFS is working on STR, possibly [facility]. If unable to secure placement at [facility] we will eval for ARU here. 09/23 POD 4, anticipate STR, pt requests [facility], PFS aware. 09/22 OR 09/20, POD 3. Pain control, anticoagulation, PT per Ortho, anticipate either ARU or STR, pt aware, PT anf PFS aware and working with PT on progressing. (2) Atrial flutter by electrocardiogram Status: Acute Response to Treatment: Stable Problem Specific Plan: Monitor Clinically Problem Text: 09/24/18: HR around 80-100. Patient on Metoprolol 25 mg po bid and 5 mg IV prn for HR >110. I will consult with attending about moving patient to floor from PCU. ECHO CONCLUSIONS: 1. The study is of limited technical quality. 2. Normal left ventricle (LV) size with grossly preserved LV systolic function and grade 1 diastolic dysfunction. 3. No hemodynamically significant valvular disease. 4. Likely normal central venous pressure and normal pulmonary artery pressure. 5. Prominent pericardial fat pad. Nursing called to report HR 160s, appears pt received 1 dose Lopressor 5 mg, converted, has been in NSR since. She was asymptomatic. ECHO ordered. EKG obtained to confirm. (3) Hypothyroidism Status: Chronic Problem Specific Plan: Monitor Clinically Problem Text: Cont Synthroid replacement (4) Hypertension Status: Chronic Response to Treatment: Stable Problem Specific Plan: Monitor Clinically Problem Text: Pressures slightly elevated, cont to monitor, suspect pain control related. Plan/VTE VTE Prophylaxis Ordered?: Yes (Xarelto) VS, I&O, 24H, Fishbone Vital Signs/I&O Vital Signs Date Time Temp Pulse Resp B/P (MAP) Pulse Ox O2 Delivery O2 Flow Rate FiO2 09/24/18 09:42 20 09/24/18 09:42 136/70 09/24/18 09:41 95 09/24/18 08:00 97.4 93 09/24/18 05:00 Nasal Cannula 1.0 I&O- Last 24 Hours up to 6 AM 09/24/18 06:00 Intake Total 240 ml Output Total 500 ml Balance -260 ml Laboratory Data 24H LABS Laboratory Tests 2 09/24/18 04:54: Nucleated Red Blood Cells % (auto) 0.0, Anion Gap 4L, Glomerular Filtration Rate > 60.0, Blood Urea Nitrogen 13, Creatinine 0.53L, Sodium Level 137, Potassium Level 3.8, Chloride Level 104, Carbon Dioxide Level 29, Calcium Level 7.8L CBC/BMP Laboratory Tests 09/24/18 04:54 Red Blood Count 3.11 L, Mean Corpuscular Volume 93.9, Mean Corpuscular Hemoglobin 31.2, Mean Corpuscular Hemoglobin Concent 33.2, Red Cell Distribution Width 13.5, Calcium Level 7.8 L JOLANTA DENTON Sep 24, 2018 10:11
[2018-09-24] MEDS: RIVAROXABAN 10 MG TAB (XARELTO) PO SCH (17:47)
[2018-09-24] MEDS: LIDOCAINE 5% (LIDODERM) PATCH TD SCH (21:00)
[2018-09-25] VITALS (16 sets, daily range): BP systolic 158–176; BP diastolic 68–83; O2SAT 91–97
[2018-09-25] MEDS: PERCOCET 5MG/325MG TAB PO PRN ×2 (04:20→14:38)
[2018-09-25] MEDS: SLF 3 ML SYR IV SCH ×2 (05:23→14:00)
[2018-09-25] MEDS: LEVOTHYROXINE 112MCG TABLET (0.112MG) PO SCH (05:23)
[2018-09-25] MEDS: MOM 30ML SUSPENSION UDC PO SCH (09:00)
[2018-09-25] MEDS: MIRALAX *UNIT DOSE* 17GM PACKET PO SCH (09:00)
[2018-09-25] MEDS: **NOTE PATIENT COMMENT** MISC XX SCH (09:00)
[2018-09-25] MEDS ORDERED: METO1TAB87 PO (09:48)
[2018-09-25] MEDS ORDERED: XARE10TA PO (09:49)
[2018-09-25] MEDS ORDERED: PERCOCET PO (09:49)
[2018-09-25] MEDS: SENOKOT S TAB PO SCH (09:50)
[2018-09-25] MEDS: RAMIPRIL 5 MG CAP PO SCH (09:50)
[2018-09-25] MEDS: METOPROLOL TART 25 MG TABLET PO SCH (09:50)
[2018-09-25] MEDS: CitaloPRAM (CeleXA) 10 MG TABLET PO SCH (09:51)
[2018-09-25] MEDS: MORPHINE 15 MG SA TAB PO SCH (09:51)
== END 2018-09-25 16:36 | DRG 481 ==
LOC: M ED 14:54 → EDBD 14:54 → M ED INP 20:30 → M PCU 09-21 03:56
PROVIDERS: ADMIT Family Medicine; ATTEND Family Medicine
PROC: 0QH706Z Insertion of Intramedullary Internal Fixation Device into Left Upper Femur, Open Approach (ICD-10-PCS; principal; 2018-09-20)
DX: S72.145A Nondisplaced intertrochanteric fracture of left femur, initial encounter for closed fracture (principal); I69.351 Hemiplegia and hemiparesis following cerebral infarction affecting right dominant side; I48.92 Unspecified atrial flutter; W01.0XXA Fall on same level from slipping, tripping and stumbling without subsequent striking against object, initial encounter; Y92.009 Unspecified place in unspecified non-institutional (private) residence as the place of occurrence of the external cause; E11.9 Type 2 diabetes mellitus without complications; I10 Essential (primary) hypertension; R25.1 Tremor, unspecified; E03.9 Hypothyroidism, unspecified; M51.34 Other intervertebral disc degeneration, thoracic region; M51.36 Other intervertebral disc degeneration, lumbar region; Z87.442 Personal history of urinary calculi; Z88.2 Allergy status to sulfonamides; Z79.84 Long term (current) use of oral hypoglycemic drugs; Z79.899 Other long term (current) drug therapy

== ENCOUNTER → 2018-11-27 | Outpatient (CLI) | payer MEDICARE ==
[~2018-11-27] MED LIST changes: -/MOM400 PO; -ASPI1TAB PO; +ASPI81TA26 PO; -CITA-229 PO; +CITA10TA6 PO; -CITA20TA4 PO; +CITA20TA6 PO; -CYCL5TA PO; +CYCL5TAB5 PO; +HYDR-3715 PO; +METO1TAB87 PO; +MILK10SU PO; -MIRA255PW PO; -NORCOTAB PO; +ONDA-228 PO; +POLY1POW4 PO; +XARE10TA PO; -ZOFR4TAB3 PO
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
== END ==
LOC: M PAIN 13:30
PROVIDERS: ATTEND Nurse Practitioner Family
DX: M79.18 Myalgia, other site (principal); E11.9 Type 2 diabetes mellitus without complications; Z86.73 Personal history of transient ischemic attack (TIA), and cerebral infarction without residual deficits; E03.9 Hypothyroidism, unspecified; Z88.2 Allergy status to sulfonamides; Z79.84 Long term (current) use of oral hypoglycemic drugs; Z79.899 Other long term (current) drug therapy

== ENCOUNTER → 2018-12-23 | Outpatient (CLI) | payer MEDICARE ==
[~2018-12-23] MED LIST changes: +BUPIVACAINE HCL 0.25% 10 ML VIAL As Ordered ONE; +BUPIVACAINE HCL 0.25% 30 ML VIAL As Ordered ONE; +TRIAMCINOLONE ACETONIDE SUSP 40 MG/ML VIAL (J3301) As Ordered ONE; +diazePAM 5 MG TAB As Ordered ONE; +oxyCODONE 5MG TAB As Ordered ONE
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
== END ==
LOC: M PAIN 10:15
PROVIDERS: ATTEND Anesthesiology
DX: M79.18 Myalgia, other site (principal); M54.5 Low back pain; E11.9 Type 2 diabetes mellitus without complications; I10 Essential (primary) hypertension; Z79.84 Long term (current) use of oral hypoglycemic drugs; Z79.899 Other long term (current) drug therapy; Z87.828 Personal history of other (healed) physical injury and trauma; Z88.2 Allergy status to sulfonamides; Z88.8 Allergy status to other drugs, medicaments and biological substances; Z86.73 Personal history of transient ischemic attack (TIA), and cerebral infarction without residual deficits; Z86.79 Personal history of other diseases of the circulatory system
CPT/HCPCS: 20552; J3301

== ENCOUNTER → 2019-01-27 | Outpatient (CLI) | payer MEDICARE ==
[~2019-01-27] MED LIST changes: -BUPIVACAINE HCL 0.25% 10 ML VIAL As Ordered ONE; -BUPIVACAINE HCL 0.25% 30 ML VIAL As Ordered ONE; -TRIAMCINOLONE ACETONIDE SUSP 40 MG/ML VIAL (J3301) As Ordered ONE; -diazePAM 5 MG TAB As Ordered ONE; -oxyCODONE 5MG TAB As Ordered ONE
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
== END ==
LOC: M PAIN 13:30
PROVIDERS: ATTEND Nurse Practitioner Family
DX: M79.18 Myalgia, other site (principal); E11.9 Type 2 diabetes mellitus without complications; I10 Essential (primary) hypertension; E03.9 Hypothyroidism, unspecified; M51.36 Other intervertebral disc degeneration, lumbar region; M51.34 Other intervertebral disc degeneration, thoracic region; I48.91 Unspecified atrial fibrillation; Z79.01 Long term (current) use of anticoagulants; Z79.84 Long term (current) use of oral hypoglycemic drugs; Z79.899 Other long term (current) drug therapy; Z98.41 Cataract extraction status, right eye; Z98.42 Cataract extraction status, left eye; Z87.442 Personal history of urinary calculi; Z88.2 Allergy status to sulfonamides; Z88.8 Allergy status to other drugs, medicaments and biological substances

== ENCOUNTER 2019-04-29 11:33 | Emergency (ER) | payer MEDICARE ==
[~2019-04-29] VITALS: Ht 157.5 cm; Wt 76.3 kg
[~2019-04-29 11:33] MED LIST changes: -ECOT81TA5 PO; -ELIQ5TAB PO; -FLEC25TA PO; -GABA300S PO; -LISI-538 PO; -LISI-542 PO; -METO50TA7 PO
[2019-04-29] MEDS ORDERED: ECOT81TA5 PO (12:07)
[2019-04-29] MEDS ORDERED: LISI-542 PO (12:07)
[2019-04-29] MEDS ORDERED: ELIQ5TAB PO (12:07)
[2019-04-29 12:20] LABS: BASO % 0.5 % (0.0-1.0); EOS # 0.2 10^3/uL (0.0-0.5); EOS % 2.5 % (0.0-3.0); HEMATOCRIT 35.8 % (36.0-47.0); HEMOGLOBIN 11.7 g/dl (12.0-15.5); LYMPH # 3.9 10^3/uL (1.5-5.0); MEAN CORPUSCULAR HEMOGLOBIN 31.1 pg (27.0-33.0); MEAN CORPUSCULAR HGB CONC 32.7 g/dl (32.0-36.5); MEAN CORPUSCULAR VOLUME 95.2 fl (80.0-96.0); MONO # 0.7 10^3/uL (0.0-0.8); NEUTROPHILS # 2.8 10^3/uL (1.5-8.5); NEUTROPHILS % 36.7 % (36.0-66.0); PLATELET COUNT, AUTOMATED 240 10^3/uL (150-450); RED BLOOD COUNT 3.76 10^6/uL (4.00-5.40); WHITE BLOOD COUNT 7.7 10^3/uL (4.0-10.0)
[2019-04-29 12:33] LABS: INR 1.26; PROTHROMBIN TIME 15.6 SECONDS (11.8-14.0)
--- NOTE | 2019-04-29 12:36 | REP ---
PORTABLE CHEST: AP portable view of the chest is performed and compared to a prior study of 09/20/2018. Cardiomegaly is noted. There is calcification of the thoracic aorta. Mediastinal silhouette is unchanged. There is no evidence of acute infiltrate or pulmonary edema. IMPRESSION: Cardiomegaly. No acute infiltrate or pulmonary edema. Electronically Signed by James Funez MD 04/29/2019 03:20 P
[2019-04-29 13:00] LABS: ALBUMIN 3.9 GM/DL (3.2-5.2); ALT/SGPT 25 U/L (12-78); BILIRUBIN,DIRECT < 0.1 MG/DL (0.0-0.2); BILIRUBIN,TOTAL 0.2 MG/DL (0.2-1.0); BLOOD UREA NITROGEN 19 MG/DL (7-18); CARBON DIOXIDE LEVEL 25 MEQ/L (21-32); CHLORIDE LEVEL 105 MEQ/L (98-107); CK-MB VALUE MASS 2.1 NG/ML (<3.6); CPK CREATINE PHOSPHOKINASE 92 U/L (26-192); CREATININE FOR GFR 1.01 MG/DL (0.55-1.30); GLOMERULAR FILTRATION RATE 56.4 (>39); GLUCOSE, FASTING 152 MG/DL (70-100); LIPASE 70 U/L (73-393); MB/CK RELATIVE INDEX 2.28 (< OR =4); NT-PRO BNP 186 PG/ML (<450); POTASSIUM SERUM 4.4 MEQ/L (3.5-5.1); SODIUM LEVEL 140 MEQ/L (136-145); TOTAL PROTEIN 8.2 GM/DL (6.4-8.2); TROPONIN I 0.05 NG/ML (< 0.10)
--- NOTE | 2019-04-29 13:37 | REP ---
CT BRAIN WITHOUT CONTRAST: CT brain performed without IV contrast. COMPARISON: 09/20/2018 There is mild atrophy. There is no midline shift or mass effect. There are stable minor periventricular small vessel ischemic changes in the white matter with no acute intracranial hemorrhage or extra-axial fluid collection. There are mild vascular calcifications of the carotid siphons. IMPRESSION: Chronic changes as above with no evidence of acute intracranial hemorrhage, midline shift or mass effect. Electronically Signed by James Funez MD 04/29/2019 03:21 P
[2019-04-29] MEDS ORDERED: MIDAZOLAM INJ 2 MG/2 ML VIAL (J2250) IV STA (14:49)
--- NOTE | 2019-04-29 16:23 | REP ---
MRI brain without contrast: History: Confusion. Staring. Comparison head CT study April 29, 2019. Comparison brain MRI study October 18, 2016. Technique: Axial and sagittal imaging planes are utilized for T1 and T2-weighted scans. Sequences include spin-echo, fast spin echo, FLAIR, and diffusion weighted sequences. MRI findings: Craniocervical junction and upper cervical cord are normal in appearance. No bony calvarial lesion is appreciated. There is no MR evidence of significant paranasal sinus disease. No intraorbital abnormality is appreciated. There are three or four scattered periventricular and subcortical T2 hyperintensities on FLAIR and turbo spin echo images essentially unchanged from the 2017 study and compatible with mild small vessel changes. There is minimal generalized volume loss. Diffusion weighted scans show no evidence to suggest acute ischemia. There is no evidence of intracranial mass or hemorrhage. There is no midline shift is seen. Impression: Minimal generalized volume loss and small vessel changes. No acute intracranial abnormality. Electronically Signed by Vj Clark MD 04/29/2019 04:27 P
--- NOTE | 2019-04-29 16:27 | REP ---
MR angiography the brain without contrast: History: Confusion, staring. Comparison MR ANGIO study of the brain is from April 27, 2014. Technique: 3-D [id number] MR angiography of the brain is acquired in the usual fashion and maximal intensity projection images were generated in rotational format about the vertical and horizontal axes. In addition, source axial T1-weighted images are viewed in cine mode. MR angiographic findings: The distal vertebral arteries are patent and co-dominant. Basilar artery is a little tortuous but widely patent. The posterior cerebral and superior cerebellar vessels are normal and symmetric. There is mild atherosclerosis of the distal internal carotid artery on the right unchanged. 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 No other schwartz aneurysm is seen. Anterior middle cerebral arteries are unremarkable bilaterally. 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 Otherwise unremarkable MR angiography of the brain. Electronically Signed by Vj Clark MD 04/29/2019 05:00 P
[2019-04-29 16:46] VITALS: BP 146/64
--- NOTE | 2019-04-29 20:45 | ECGEPIP ---
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
== END 2019-04-29 17:07 | disposition home or self-care (01) ==
LOC: M ED 11:33
DX: R41.82 Altered mental status, unspecified (principal); I49.3 Ventricular premature depolarization; I67.1 Cerebral aneurysm, nonruptured; I67.82 Cerebral ischemia; M25.559 Pain in unspecified hip; G89.29 Other chronic pain; I48.91 Unspecified atrial fibrillation; I10 Essential (primary) hypertension; E11.9 Type 2 diabetes mellitus without complications; E07.9 Disorder of thyroid, unspecified; M19.90 Unspecified osteoarthritis, unspecified site; Z86.73 Personal history of transient ischemic attack (TIA), and cerebral infarction without residual deficits; Z88.2 Allergy status to sulfonamides; Z79.899 Other long term (current) drug therapy; Z79.01 Long term (current) use of anticoagulants; Z79.84 Long term (current) use of oral hypoglycemic drugs; Z79.82 Long term (current) use of aspirin
CPT/HCPCS: 70450; 70544; 70551; 71045; 80048; 80076; 82140; 82550; 82553; 83690; 83880; 84443; 84484; 85025; 85610; 87040; 93005; 93041; 94760; 96374; 99285; J2250

== ENCOUNTER → 2019-04-29 | Outpatient (CLI) | payer MEDICARE ==
[~2019-04-29] MED LIST changes: +ECOT81TA5 PO; +ELIQ5TAB PO; +FLEC25TA PO; +GABA300S PO; +LISI-538 PO; +LISI-542 PO; +METO50TA7 PO
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
== END ==
LOC: M PAIN 09:45
PROVIDERS: ATTEND Nurse Practitioner Family
DX: M25.552 Pain in left hip (principal); M48.07 Spinal stenosis, lumbosacral region; M46.1 Sacroiliitis, not elsewhere classified; G89.29 Other chronic pain; E11.9 Type 2 diabetes mellitus without complications; Z86.73 Personal history of transient ischemic attack (TIA), and cerebral infarction without residual deficits; I10 Essential (primary) hypertension; E03.9 Hypothyroidism, unspecified; Z88.2 Allergy status to sulfonamides; Z88.8 Allergy status to other drugs, medicaments and biological substances; Z79.82 Long term (current) use of aspirin; Z79.84 Long term (current) use of oral hypoglycemic drugs; Z79.899 Other long term (current) drug therapy

== ENCOUNTER → 2019-05-26 | Outpatient (CLI) | payer MEDICARE ==
[~2019-05-26] MED LIST changes: +ECOT81TA5 PO; +ELIQ5TAB PO; +LISI-542 PO
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
== END ==
LOC: M PAIN 10:00
PROVIDERS: ATTEND Nurse Practitioner Family
DX: M48.07 Spinal stenosis, lumbosacral region (principal); M46.1 Sacroiliitis, not elsewhere classified; G89.29 Other chronic pain; E11.9 Type 2 diabetes mellitus without complications; Z86.73 Personal history of transient ischemic attack (TIA), and cerebral infarction without residual deficits; I10 Essential (primary) hypertension; E03.9 Hypothyroidism, unspecified; Z88.2 Allergy status to sulfonamides; Z88.8 Allergy status to other drugs, medicaments and biological substances; Z79.01 Long term (current) use of anticoagulants; Z79.84 Long term (current) use of oral hypoglycemic drugs; Z79.899 Other long term (current) drug therapy

== ENCOUNTER → 2019-07-01 | Outpatient (CLI) | payer MEDICARE ==
[~2019-07-01] MED LIST changes: +ISOVUE-M 300 61% 15ML VIAL (Q9967) As Ordered ONE; +LIDOCAINE 1% SDV INJ 30 ML VIAL As Ordered ONE; +diazePAM 5 MG TAB As Ordered ONE; +methylPREDNISolone SUSP 40 MG/ML (DEPO-medrol) VIAL (J1030) As Ordered ONE; +oxyCODONE 5MG TAB As Ordered ONE
--- NOTE | 2019-07-01 11:23 | REP ---
Partial lumbar spine series: To views . History: Injection procedure for pain. 18 seconds of fluoroscopy time is reported. Findings: A sequence of two fluoroscopically obtained last image hold procedural spot radiographs of the lumbar spine document needle position and contrast injection associated with injection procedure. Electronically Signed by Vj Clark MD 07/01/2019 11:15 A
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
== END ==
LOC: M PAIN 10:00
PROVIDERS: ATTEND Anesthesiology
DX: M51.16 Intervertebral disc disorders with radiculopathy, lumbar region (principal); E11.9 Type 2 diabetes mellitus without complications; Z86.73 Personal history of transient ischemic attack (TIA), and cerebral infarction without residual deficits; I10 Essential (primary) hypertension; E03.9 Hypothyroidism, unspecified; Z88.2 Allergy status to sulfonamides; Z88.8 Allergy status to other drugs, medicaments and biological substances; Z79.01 Long term (current) use of anticoagulants; Z79.82 Long term (current) use of aspirin; Z79.84 Long term (current) use of oral hypoglycemic drugs; Z79.899 Other long term (current) drug therapy
CPT/HCPCS: 62323; J1030; Q9967

== ENCOUNTER → 2019-07-20 | Outpatient (CLI) | payer MEDICARE ==
[~2019-07-20] MED LIST changes: -ISOVUE-M 300 61% 15ML VIAL (Q9967) As Ordered ONE; -LIDOCAINE 1% SDV INJ 30 ML VIAL As Ordered ONE; -diazePAM 5 MG TAB As Ordered ONE; -methylPREDNISolone SUSP 40 MG/ML (DEPO-medrol) VIAL (J1030) As Ordered ONE; -oxyCODONE 5MG TAB As Ordered ONE
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
== END ==
LOC: M PAIN 10:30
PROVIDERS: ATTEND Nurse Practitioner Family
DX: M51.16 Intervertebral disc disorders with radiculopathy, lumbar region (principal); E11.9 Type 2 diabetes mellitus without complications; Z86.73 Personal history of transient ischemic attack (TIA), and cerebral infarction without residual deficits; I10 Essential (primary) hypertension; E03.9 Hypothyroidism, unspecified; Z88.2 Allergy status to sulfonamides; Z88.8 Allergy status to other drugs, medicaments and biological substances; Z79.01 Long term (current) use of anticoagulants; Z79.82 Long term (current) use of aspirin; Z79.84 Long term (current) use of oral hypoglycemic drugs; Z79.899 Other long term (current) drug therapy

== ENCOUNTER 2019-07-30 12:12 | Inpatient (IN) | payer MEDICARE ==
[~2019-07-30] VITALS: Ht 157.5 cm; Wt 76.7 kg
[2019-07-30] MEDS ORDERED: ISOS30TA4 PO (13:10)
[2019-07-30] MEDS ORDERED: FLEC25TA PO (13:10)
[2019-07-30] MEDS ORDERED: MORPHINE 4 MG/ML 1ML VIAL/SYRINGE (J2270) IV ONE ×2 (13:15→16:45)
[2019-07-30] MEDS ORDERED: NS 1,000 ML IV ONE (13:15)
--- NOTE | 2019-07-30 13:39 | REP ---
Clinical: Right flank pain. Technique: Axial noncontrast images from the lung bases to the pubic symphysis with coronal and sagittal re-formations. Findings: Hepatic steatosis. Spleen, pancreas, gallbladder, bilateral adrenal glands and left kidney appear normal. Right kidney includes multiple 2-3 mm nonobstructing renal calculi without perinephric stranding, hydronephrosis or obstructing ureteral calculus. The enteric system is without obstruction or acute inflammatory process. Normal terminal ileum and cecum identified in the right lower quadrant. Pelvis demonstrates normal bladder and evidence of prior hysterectomy. No ascites. No free air. No adenopathy. Atherosclerotic changes of the aorta and vasculature noted without aneurysm. Osseous structures demonstrate age-related degenerative changes. Lung bases are clear. Impression: 1. Hepatic steatosis. 2. Nonobstructing right renal calculi measuring 2-3 mm. 3. No further acute abdominopelvic pathology appreciated. Electronically Signed by Fernando Garza MD 07/30/2019 01:30 P
[2019-07-30 14:13] LABS: BASO % 0.3 % (0.0-1.0); EOS # 0.2 10^3/uL (0.0-0.5); EOS % 2.2 % (0.0-3.0); HEMATOCRIT 35.8 % (36.0-47.0); HEMOGLOBIN 11.1 g/dl (12.0-15.5); LYMPH # 3.6 10^3/uL (1.5-5.0); LYMPH % 49.4 % (24.0-44.0); MEAN CORPUSCULAR HEMOGLOBIN 29.1 pg (27.0-33.0); MONO # 0.8 10^3/uL (0.0-0.8); MONO % 10.9 % (0.0-5.0); NEUTROPHILS # 2.7 10^3/uL (1.5-8.5); NEUTROPHILS % 36.9 % (36.0-66.0); PLATELET COUNT, AUTOMATED 215 10^3/uL (150-450); RED BLOOD COUNT 3.81 10^6/uL (4.00-5.40); WHITE BLOOD COUNT 7.2 10^3/uL (4.0-10.0)
[2019-07-30 14:36] LABS: ALBUMIN 3.7 GM/DL (3.2-5.2); ALT/SGPT 25 U/L (12-78); BILIRUBIN,DIRECT 0.1 MG/DL (0.0-0.2); BILIRUBIN,TOTAL 0.4 MG/DL (0.2-1.0); BLOOD UREA NITROGEN 11 MG/DL (7-18); CALCIUM LEVEL 8.7 MG/DL (8.8-10.2); CARBON DIOXIDE LEVEL 29 MEQ/L (21-32); CHLORIDE LEVEL 104 MEQ/L (98-107); CREATININE FOR GFR 0.84 MG/DL (0.55-1.30); GLOMERULAR FILTRATION RATE > 60.0 (>39); GLUCOSE, FASTING 111 MG/DL (70-100); LIPASE 54 U/L (73-393); POTASSIUM SERUM 4.2 MEQ/L (3.5-5.1); SODIUM LEVEL 142 MEQ/L (136-145); TOTAL PROTEIN 7.4 GM/DL (6.4-8.2)
[2019-07-30] MEDS ORDERED: PERCOCET 5MG/325MG TAB PO ONE (15:15)
--- NOTE | 2019-07-30 15:55 | REP ---
Clinical: Right lower extremity pain and swelling . Technique: Funez scale and color Doppler evaluation using linear high frequency transducer. Findings: Ultrasound examination of the right lower extremity deep venous structures from the common femoral vein to the popliteal vein demonstrates normal compressibility flow and wave patterns in response to respiration and augmentation. There is no evidence for deep venous thrombosis. Impression: No evidence for deep venous thrombosis. Electronically Signed by Fernando Garza MD 07/30/2019 03:46 P
[2019-07-30] MEDS ORDERED: GLUCAGON FOR INJ 1 MG VIAL (J1610) SC PRN (17:30)
[2019-07-30] MEDS ORDERED: GLUCOSE 4 GM CHEW TABLET PO PRN (17:30)
[2019-07-30] MEDS: HumaLOG INSULIN (NovoLOG) PER UNIT SC SCH ×2 (17:30→20:54)
[2019-07-30] MEDS ORDERED: ONDANSETRON 4MG/2ML VIAL (J2405) IV PRN (17:30)
[2019-07-30] MEDS ORDERED: HYDROMORPHONE HCL 0.5 MG/ 0.5 ML SYRINGE (J1170 PER 1) IV PRN (17:30)
[2019-07-30] MEDS ORDERED: DEXTROSE 50% 50 ML SYRINGE IV PRN (17:30)
[2019-07-30] MEDS ORDERED: METO50TA7 PO (17:37)
[2019-07-30] MEDS ORDERED: TAMSULOSIN 0.4 MG CAP PO ONE (18:00)
--- NOTE | 2019-07-30 18:05 | HPEPDOC ---
General Date of Admission Jul 30, 2019 at 17:25 Date of Service: Jul 30, 2019 Chief Complaint The patient is a 78-year-old female Who presented to the emergency room with complaints of back pain History of Present Illness Patient is a 78-year-old female with a PMHx of Chronic A. 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 Patient has reported that she has been experiencing back pain for last 3-4 years secondary to her spinal stenosis and has been receiving joint injections with the pain clinic. Most recent of which was a proximally 2 weeks ago. She reports that it has helped for a few days but then began to worsen. Patient reports that she called the clinic on Saturday to report the pain and they advised her to continue with Aleve for pain relief despite taking Aleve, there was no improvement of her pain. On (07/30), she had called back to the pain clinic and they had advised her to code the emergency room for further evaluation. Patient was given morphine for pain control, however, this did not relieve her pain. Patient had a CT scan completed that revealed a right-sided kidney stone without any obstructive uropathy as well as a urinalysis that was consistent with possible infection. Hospital services called for further evaluation and treatment. Patient reports that her back pain is located 2 inches right of her lower back . Patient reports that it started on Saturday and worsened into the weekend. Patient is reporting that the pain is limiting the movement of her right leg. She does report some tingling. Patient denies any incontinence of stool or urine. She uses a cane to ambulate at baseline. Patient denies any headache, chest pain, shortness of breath. Current pa lpitations, constipation, diarrhea, or urinary discomfort. Patient does report increased urinary frequency. Denies any fevers / chills. While in the emergency room, during this history, patient experienced an episode of nausea and vomited once. Home Medications Scheduled Apixaban (Eliquis) 5 Mg Tablet, 5 MG PO BID, (Reported) 2ND DOSE AT 1730 Aspirin (Ecotrin) 81 Mg Tablet.dr, 81 MG PO DAILY, (Reported) Citalopram Hydrobromide (Citalopram HBr) 10 Mg Tab, 10 MG PO DAILY, (Reported) Flecainide Acetate (Flecainide Acetate) 50 Mg Tablet, 50 MG PO BID, (Reported) 2ND DOSE AT 1730 Isosorbide Mononitrate (Isosorbide Mononitrate ER) 30 Mg Tab.er.24h, 30 MG PO DAILY, (Reported) Levothyroxine Sodium (Synthroid) 112 Mcg Tab, 112 MCG PO DAILY, (Reported) Lisinopril (Lisinopril) 5 Mg Tablet, 5 MG PO DAILY, (Reported) Metformin HCl (Metformin HCl) 500 Mg Tab, 500 MG PO BID, (Reported) 2ND DOSE AT 1730 Metoprolol Tartrate (Metoprolol Tartrate) 50 Mg Tablet, 50 MG PO BID, (Reported) 2ND DOSE AT 1730 Quetiapine Fumarate (Quetiapine Fumarate) 50 Mg Tab, 50 MG PO BID, (Reported) 2ND DOSE AT 1730 Allergies Coded Allergies: Sulfa (Sulfonamide Antibiotics) (Verified Allergy, Intermediate, HIVES, ) Past Medical History Medical History Chronic A. 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, DLP, DM2, Hx of kidney stones (since age 16, most recent ~1 year ago) and Chronic back pain 2/2 Spinal stenosis (Follows with Jillian Hernandez) Surgical History Left hip fracture July 2018, status post repair Appendectomy Procedures for removal of kidney stones in the past Hysterectomy Multiple broken bones as a child secondary to childhood trauma Family History - Mother with a history of heart disease, at the age of 86 secondary to an MD - Father with a history of laryngeal cancer, at the age of 52 - Brother with a history of heart attack, at age of 62 Social History - Denies the use of alcohol, tobacco or illicit drugs - Denies recent travel or sick contacts - Lives with in [place] - 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; 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 [employer] Review of Systems Other systems 10 point review of systems complete, all negative otherwise stated in HPI Vital Signs - Vitals: BP 152/80, HR 70, RR 18, Sat 96%RA, Temp 97.7F - General: Lying in bed, No acute distress, Speaking in full sentences, AAOx3 - HEENT: NC, AT, PERRLA, EOMI - CVS: IrIr, +S1S2 - Lungs: Fair air entry bilaterally, No appreciable wheezing / rales / rhonchi - Abdomen: Soft, Non-distended, Tenderness appreciated at RLQ - Extremities: No lower extremity edema, No calf tenderness - Neuro: 5/5 strength at LUE and LLE, 4/5 strength at RUE, 4-5/5 strength at RLE - patient appeared to be in extreme pain during physical of RLE - Skin: No visible rashes Laboratory Data Labs 24H Laboratory Tests 2 07/30/19 13:49: Immature Granulocyte % (Auto) 0.3, Neutrophils (%) (Auto) 36.9, Lymphocytes (%) (Auto) 49.4H, Monocytes (%) (Auto) 10.9H, Eosinophils (%) (Auto) 2.2, Basophils (%) (Auto) 0.3, Neutrophils # (Auto) 2.7, Lymphocytes # (Auto) 3.6, Monocytes # (Auto) 0.8, Eosinophils # (Auto) 0.2, Basophils # (Auto) 0.0, Nucleated Red Blood Cells % (auto) 0.0, Urine Color YELLOW, Urine Appearance CLOUDYH, Urine pH 5.0, Urine Specific [place] 1.016, Urine Protein 1+H, Urine Glucose (UA) NEGATIVE, Urine Ketones NEGATIVE, Urine Blood 1+H, Urine Nitrite NEGATIVE, Urine Bilirubin NEGATIVE, Urine Urobilinogen 0.2, Urine Leukocyte Esterase 2+H, Urine WBC (Auto) 103H, Urine RBC (Auto) 16H, Urine Hyaline Casts (Auto) 0, Urine Bacteria (Auto) 1+H, Urine Squamous Epithelial Cells 2, Urine Transitional Epithelial Cells 1, Urine Mucus (Auto) SMALL, Urine Sperm (Auto) , Anion Gap 9, Glomerular Filtration Rate > 60.0, Calcium Level 8.7L, Total Bilirubin 0.4, Direct Bilirubin 0.1, Aspartate Amino Transf (AST/SGOT) 24, Alanine Aminotransferase (ALT/SGPT) 25, Alkaline Phosphatase 60, Total Protein 7.4, Albumin 3.7, Albumin/Globulin Ratio 1.00, Lipase 54L CBC/BMP Laboratory Tests 07/30/19 13:49 Microbiology Microbiology 07/30/19 Urine Culture, Received Pending Plan / VTE VTE Prophylaxis Ordered?: Yes Plan Plan Intractable back pain - possibly 2/2 degenerative disk disease / spinal stenosis / herniated disks - Patient has reported a long-standing history of chronic back pain for last 3 or 4 years and follows with Jillian Hernandez - Presented to the emergency room with worsening back pain - There is no incontinence of urine or stool - Physical reveals 4-5/5 strength at RLE - however appears to be limited 2/2 pain - Patient has received joint injections proximally 2 weeks ago that has helped alleviate some of the pain temporarily - MRI 08/15/2018: Examination is moderately limited by patient motion. Multilevel spondylotic changes as described above. These have shown interval progression compared to previous examination. - Will get MRI to evaluate back - Will admit the patient for IV pain control; will continue with telemetry monitoring while on high doses of pain medication RLQ abdominal pain - possibly 2/2 renal stone - Patient reports that she has a history of kidney stones and notes increased urinary frequency - Patient remains hemodynamically stable and afebrile - No leukocytosis; lactic acid pending - UA consistent with possible infection / stone - CT abdomen / pelvis 07/30: 1. Hepatic steatosis. 2. Non-obstructing right renal calculi measuring 2-3 mm. 3. No further acute abdominopelvic pathology appreciated. - Will start normal saline for gentle hydration at 80cc/hr and Tamsulosin to allow for stone passage - Will start Ceftriaxone pending urine cultures Chronic A. 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
[2019-07-30 20:10] VITALS: BP 190/80
--- NOTE | 2019-07-30 20:29 | REPVR ---
PROCEDURE INFORMATION: Exam: MR Lumbar Spine Without Contrast. Exam date and time: 07/30/2019 7:32 PM Age: 78 years old Clinical indication: Low back pain; Additional info: Lower back pain TECHNIQUE: Imaging protocol: Multiplanar magnetic resonance images of the lumbar spine without intravenous contrast. COMPARISON: MRI-Spine, L.S. without con 08/15/2018 10:22 PM FINDINGS: Vertebrae: Grade 1 anterolisthesis of L5 and S1 secondary to degenerative changes in the facet joints. Stable appearance of a compression deformity previously described at L1 without evidence of bone marrow edema to suggest acute fracture. Spinal cord: Normal signal. No cord compression. L1-L2: Mild annular bulge at L1-L2 without central spinal stenosis. No lateral recess or foraminal stenosis. L2-L3: Mild annular bulge at L2-L3 with a left paracentral disc protrusion extending into the foraminal zone resulting in moderate to severe proximal foraminal stenosis on the left. The right neural foramina is unremarkable. There is no lateral recess stenosis. L3-L4: There is a iymz-[id number] central spinal stenosis at L3-L4 secondary to diffuse annular bulging, thickened ligamentum flavum and facet joint arthropathy. No lateral recess stenosis. Mild bilateral foraminal narrowing secondary to the bulging annulus in the foraminal zones bilaterally. L4-L5: There is a moderate to severe central spinal stenosis at L4-L5 secondary to diffuse annular bulging, thickened ligamentum flavum and facet joint arthropathy. L5-S1: There is a severe central spinal stenosis L5-S1 secondary to diffuse annular bulging, thickened ligamentum flavum and facet joint arthropathy. There is moderate bilateral foraminal narrowing secondary to the foraminal component of the bulging annulus. No lateral recess stenosis. Sacrum/coccyx: Redemonstration of a lumbarized S1 vertebral segment with a small S1-S2 disc. Soft tissues: Unremarkable. IMPRESSION: 1. Grade 1 anterolisthesis of L5 and S1 secondary to degenerative changes in the facet joints. 2. Stable appearance of a compression deformity previously described at L1 without evidence of bone marrow edema to suggest acute fracture. 3. Multilevel degenerative spinal stenoses [id number] L3-L4, moderate to severe at L4-L5 and severe at L5-S1. 4. Bulging annulus with a left posterior and foraminal disc protrusion at L2-L3 which may impinge on the left exiting L2 nerve root. Electronically signed by: Monroe Rooney On 07/30/2019 20:28:57 PM
[2019-07-30 20:30] VITALS: O2SAT 91
[2019-07-30] MEDS: NS 1,000 ML IV SCH (20:47)
[2019-07-30] MEDS: cefTRIAXone SOD 1 GM in D5W MINI-BAG PLUS 50 ML IV SCH (20:48)
[2019-07-30] MEDS: APIXABAN 5 MG TAB (ELIQUIS) PO SCH (20:49)
[2019-07-30] MEDS: METOPROLOL TART 50 MG TAB PO SCH (20:50)
[2019-07-30] MEDS: FLECAINIDE 50MG TABLET PO SCH (20:53)
[2019-07-30] MEDS: QUEtiapine FUMARATE 50 MG TAB PO SCH (20:53)
[2019-07-30 21:00] VITALS: O2SAT 95
[2019-07-30] MEDS: HYDROMORPHONE HCL 0.5 MG/ 0.5 ML SYRINGE (J1170 PER 1) IV PRN (21:01)
--- NOTE | 2019-07-30 21:12 | ECGEPIP ---
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
[2019-07-30 22:00] VITALS: O2SAT 93
[2019-07-30] MEDS: ACETAMINOPHEN TAB 650MG DOSE (2X325MG) PO PRN (22:10)
[2019-07-30 23:00] VITALS: O2SAT 93
[2019-07-31] VITALS (15 sets, daily range): BP systolic 111–182; BP diastolic 54–82; O2SAT 90–96
[2019-07-31] MEDS: HYDROMORPHONE HCL 0.5 MG/ 0.5 ML SYRINGE (J1170 PER 1) IV PRN ×6 (00:07→19:30)
[2019-07-31 05:40] LABS: BASO % 0.3 % (0.0-1.0); EOS # 0.2 10^3/uL (0.0-0.5); EOS % 2.4 % (0.0-3.0); HEMATOCRIT 31.6 % (36.0-47.0); HEMOGLOBIN 9.6 g/dl (12.0-15.5); LYMPH # 3.6 10^3/uL (1.5-5.0); LYMPH % 50.7 % (24.0-44.0); MEAN CORPUSCULAR HGB CONC 30.4 g/dl (32.0-36.5); MEAN CORPUSCULAR VOLUME 95.5 fl (80.0-96.0); MONO # 0.9 10^3/uL (0.0-0.8); NEUTROPHILS # 2.3 10^3/uL (1.5-8.5); NEUTROPHILS % 33.3 % (36.0-66.0); PLATELET COUNT, AUTOMATED 191 10^3/uL (150-450); RED BLOOD COUNT 3.31 10^6/uL (4.00-5.40)
[2019-07-31] MEDS: LEVOTHYROXINE 112MCG TABLET (0.112MG) PO SCH (06:07)
[2019-07-31] MEDS: QUEtiapine FUMARATE 50 MG TAB PO SCH ×2 (06:07→17:22)
[2019-07-31 06:10] LABS: CALCIUM LEVEL 7.7 MG/DL (8.8-10.2); CREATININE FOR GFR 1.07 MG/DL (0.55-1.30); GLOMERULAR FILTRATION RATE 52.8 (>39); MAGNESIUM LEVEL 1.7 MG/DL (1.8-2.4)
[2019-07-31] MEDS: APIXABAN 5 MG TAB (ELIQUIS) PO SCH ×2 (06:10→17:22)
[2019-07-31] MEDS: METOPROLOL TART 50 MG TAB PO SCH ×2 (06:10→17:21)
[2019-07-31] MEDS: NS 1,000 ML IV SCH (08:05)
[2019-07-31] MEDS: ASPIRIN 81 MG ENTERIC TAB PO SCH (08:06)
[2019-07-31] MEDS: FLECAINIDE 50MG TABLET PO SCH ×2 (08:06→17:22)
[2019-07-31] MEDS: TAMSULOSIN 0.4 MG CAP PO SCH (08:06)
[2019-07-31] MEDS: HumaLOG INSULIN (NovoLOG) PER UNIT SC SCH ×4 (08:06→20:58)
[2019-07-31] MEDS: CitaloPRAM (CeleXA) 10 MG TABLET PO SCH (08:06)
[2019-07-31] MEDS: ISOSORBIDE MON. (IMDUR) 30 MG XR TAB PO SCH (08:07)
[2019-07-31] MEDS: lisinopriL 5 MG TAB PO SCH (08:07)
--- NOTE | 2019-07-31 08:23 | IPNPDOC ---
Subjective Date Seen The patient was seen on 07/31/19. Subjective Chief Complaint/HPI intractable back pain Events since last encounter Pain is relieved with Hydromorphone IV. Noted to have some desaturations with Hydromorphone requiring oxygen therapy. BP elevated when pain is rated 7-10. Constitutional: Denies: Chills, Fever, Night Sweats Pulmonary: Denies: Dyspnea, Cough Cardiovascular: Denies: Chest Pain, Palpitations, Orthopnea, Paroxysmal Noc. Dyspnea, Lt Headedness Gastrointestinal: Reports: Abdominal Pain (RIGHT SIDE ABDOMINAL PAIN); Denies: Nausea, Vomiting, Diarrhea, Constipation Genitourinary: Denies: Dysuria, Frequency, Incontinence Psych: Reports: Mood Normal; Denies: Depression, Memory Issues Objective Physical Examination General Exam: Positive: Alert, No Acute Distress Eye Exam: Positive: PERRLA, Conjunctiva & lids normal, EOMI; Negative: Sclera icteric Neck Exam: Positive: Supple; Negative: JVD, thyromegaly Chest Exam: Positive: Clear to auscultation, Normal air movement Heart Exam: Positive: Rate Normal, Irregular Rhythm; Negative: Murmurs, Rubs Telemetry: Positive: Atrial fibrillation Abdomen Exam: Positive: Normal bowel sounds, Soft, Other (tenderness to RUQ and RLQ on light palpation) Psych Exam: Positive: Mental status NL, Mood NL, Oriented x 3 Assessment /Plan Problems (1) Intractable low back pain Onset Date: 03/22/2014 Status: Acute Problem Text: PT ordered. call placed to pain management for consult. message left. Continuous oximetry due to intensity of pain regimen. (2) Renal calculus Problem Text: non-obstructing renal calculus. patient notes her abdominal pain is consistent with prior kidney stone episodes. Taking Flomax. (3) UTI (urinary tract infection) Status: Acute Problem Text: abnormal UA. culture pending. treated empirically with Ceftriaxone. (4) Hypertension Status: Chronic Problem Text: elevated BP with pain. Continue home medications. (5) Hypothyroidism Status: Chronic Problem Text: stable TSH and T4 04/2019. (6) Diabetes mellitus Status: Chronic Problem Text: Regular insulin sliding scale. Metformin on hold. Plan/VTE VTE Prophylaxis Ordered?: Yes VS, I&O, 24H, Fishbone Vital Signs/I&O Vital Signs Date Time Temp Pulse Resp B/P (MAP) Pulse Ox O2 Delivery O2 Flow Rate FiO2 12/27/19 08:08 20 07/31/19 08:07 182/80 07/31/19 07:28 97.3 83 96 Nasal Cannula 2.0 I&O- Last 24 Hours up to 6 AM 07/31/19 05:59 Intake Total 1182 ml Output Total 0 ml Balance 1182 ml Laboratory Data 24H LABS Laboratory Tests 2 07/30/19 13:49: Immature Granulocyte % (Auto) 0.3, Neutrophils (%) (Auto) 36.9, Lymphocytes (%) (Auto) 49.4H, Monocytes (%) (Auto) 10.9H, Eosinophils (%) (Auto) 2.2, Basophils (%) (Auto) 0.3, Neutrophils # (Auto) 2.7, Lymphocytes # (Auto) 3.6, Monocytes # (Auto) 0.8, Eosinophils # (Auto) 0.2, Basophils # (Auto) 0.0, Nucleated Red Blo od Cells % (auto) 0.0, Urine Color YELLOW, Urine Appearance CLOUDYH, Urine pH 5.0, Urine Specific [place] 1.016, Urine Protein 1+H, Urine Glucose (UA) NEGATIVE, Urine Ketones NEGATIVE, Urine Blood 1+H, Urine Nitrite NEGATIVE, Urine Bilirubin NEGATIVE, Urine Urobilinogen 0.2, Urine Leukocyte Esterase 2+H, Urine WBC (Auto) 103H, Urine RBC (Auto) 16H, Urine Hyaline Casts (Auto) 0, Urine Bacteria (Auto) 1+H, Urine Squamous Epithelial Cells 2, Urine Transitional Epithelial Cells 1, Urine Mucus (Auto) SMALL, Urine Sperm (Auto) , Anion Gap 9, Glomerular Filtration Rate > 60.0, Calcium Level 8.7L, Total Bilirubin 0.4, Direct Bilirubin 0.1, Aspartate Amino Transf (AST/SGOT) 24, Alanine Aminotransferase (ALT/SGPT) 25, Alkaline Phosphatase 60, Total Protein 7.4, Albumin 3.7, Albumin/Globulin Ratio 1.00, Lipase 54L 07/30/19 18:23: Lactic Acid Level 2.2*H 07/30/19 20:41: Bedside Glucose (Misc Panel) 174H 07/30/19 22:38: Lactic Acid Followup at 4 Hours 2.1*H 07/31/19 05:07: Immature Granulocyte % (Auto) 0.3, Neutrophils (%) (Auto) 33.3L, Lymphocytes (%) (Auto) 50.7H, Monocytes (%) (Auto) 13.0H, Eosinophils (%) (Auto) 2.4, Basophils (%) (Auto) 0.3, Neutrophils # (Auto) 2.3, Lymphocytes # (Auto) 3.6, Monocytes # (Auto) 0.9H, Eosinophils # (Auto) 0.2, Basophils # (Auto) 0.0, Nucleated Red Blood Cells % (auto) 0.0, Anion Gap 3L, Glomerular Filtration Rate 52.8, Lactic Acid Level 1.6, Calcium Level 7.7L, Magnesium Level 1.7L CBC/BMP Laboratory Tests 07/30/19 13:49 07/31/19 05:07 Microbiology Microbiology 07/30/19 Urine Culture, Received Pending Sherlyn Moore [facility] Jul 31, 2019 08:22
[2019-07-31] MEDS ORDERED: ENOXAPARIN 40 MG/0.4 ML SYRINGE (J1650) SC SCH (09:00)
[2019-07-31] MEDS: ACETAMINOPHEN TAB 650MG DOSE (2X325MG) PO PRN (11:16)
--- NOTE | 2019-07-31 16:55 | CR ---
DATE OF CONSULTATION: 07/31/2019 REFERRING PHYSICIAN: RICHARD Kemp CHIEF COMPLAINT: Right flank pain. HISTORY OF PRESENT ILLNESS Ynes is a 78-year-old female who was admitted to the hospital last night for intractable back pain. She is in obvious discomfort upon arrival this afternoon. Reporting spasms in her right lower back that radiate into her right abdomen. History of kidney stones and currently being treated for urinary tract and possible kidney stone. She follows at the pain center for chronic low back pain issues. This obviously is acute pain due to her kidney infection, which may be exacerbating her low back pain. Despite 0.6 mg of Dilaudid every 3 hours the patient is uncomfortable. She is not reporting significant reduction in pain even 20 minutes after IV Dilaudid. Reviewed her medications and will make some suggestions based on this. PAST MEDICAL HISTORY: Chronic atrial fib/flutter, hypertension, cerebrovascular accident (CVA) at left frontal lobe with residual right upper extremity weakness/tremor, DLP, DM2, history of kidney stones since age 16. Most recent a year ago, chronic back pain secondary to spinal stenosis. ALLERGIES: SULFA. REVIEW OF SYSTEMS: Deferred due to acute pain status at time of exam. PHYSICAL EXAMINATION Lying in bed. Wincing in pain. Extremely uncomfortable. Alert and oriented. Vital signs: 97.4, 70, 20, BP 113/54, pulse oximetry is 91% via nasal cannula at 1 liter. Cardiac: S1, S2, normal rate and rhythm. Respiratory: Increased respiratory rate noted. Lungs: Sounds are clear. Breath sounds are shallow. Abdomen: The patient is tender with light palpation over right abdomen and flank. Tender with light touch over right leg. Inspection of extremities: No swelling or redness noted. Unable to move due to pain. ASSESSMENT: 1. Acute low back pain secondary to urinary tract infection (UTI)/kidney stones. 2. Chronic spinal stenosis. PLAN My recommendations for her complaints of severe pain at this point in time would be for Toradol IV 30 mg every 6 hours times 5 days. Consider using gabapentin 100 mg three times a day. Consider using baclofen 5 mg four times a day. I would not have any further recommendations for her acute pain status at this time. Followup at the pain center for her chronic low back condition once stabilized and discharged.
[2019-07-31] MEDS: cefTRIAXone SOD 1 GM in D5W MINI-BAG PLUS 50 ML IV SCH (17:22)
[2019-07-31] MEDS: KETOROLAC 30 MG/ML VIAL (J1885) IV SCH (20:58)
[2019-07-31] MEDS: BACLOFEN 5MG PER 1/2 TABLET PO SCH (23:10)
[2019-07-31] MEDS: GABAPENTIN 100 MG CAP PO SCH (23:10)
[2019-08-01] VITALS (23 sets, daily range): BP systolic 91–180; BP diastolic 52–90; O2SAT 90–97
[2019-08-01] MEDS: HYDROMORPHONE HCL 0.5 MG/ 0.5 ML SYRINGE (J1170 PER 1) IV PRN (01:43)
[2019-08-01] MEDS: KETOROLAC 30 MG/ML VIAL (J1885) IV SCH ×4 (03:09→22:04)
[2019-08-01 04:11] LABS: BASO % 0.3 % (0.0-1.0); EOS # 0.2 10^3/uL (0.0-0.5); EOS % 2.6 % (0.0-3.0); HEMATOCRIT 28.1 % (36.0-47.0); HEMOGLOBIN 8.6 g/dl (12.0-15.5); LYMPH # 3.2 10^3/uL (1.5-5.0); LYMPH % 52.6 % (24.0-44.0); MEAN CORPUSCULAR HEMOGLOBIN 29.5 pg (27.0-33.0); MEAN CORPUSCULAR HGB CONC 30.6 g/dl (32.0-36.5); MEAN CORPUSCULAR VOLUME 96.2 fl (80.0-96.0); MONO # 0.8 10^3/uL (0.0-0.8); NEUTROPHILS # 1.9 10^3/uL (1.5-8.5); NEUTROPHILS % 31.3 % (36.0-66.0); PLATELET COUNT, AUTOMATED 165 10^3/uL (150-450); RED BLOOD COUNT 2.92 10^6/uL (4.00-5.40); WHITE BLOOD COUNT 6.1 10^3/uL (4.0-10.0)
[2019-08-01 04:32] LABS: CALCIUM LEVEL 7.8 MG/DL (8.8-10.2); CREATININE FOR GFR 1.02 MG/DL (0.55-1.30); GLOMERULAR FILTRATION RATE 55.8 (>39); MAGNESIUM LEVEL 1.7 MG/DL (1.8-2.4); POTASSIUM SERUM 3.9 MEQ/L (3.5-5.1)
[2019-08-01] MEDS: METOPROLOL TART 50 MG TAB PO SCH ×2 (05:41→17:22)
[2019-08-01] MEDS: BACLOFEN 5MG PER 1/2 TABLET PO SCH ×3 (05:41→17:22)
[2019-08-01] MEDS: APIXABAN 5 MG TAB (ELIQUIS) PO SCH ×2 (05:41→17:22)
[2019-08-01] MEDS: LEVOTHYROXINE 112MCG TABLET (0.112MG) PO SCH (05:41)
[2019-08-01] MEDS: QUEtiapine FUMARATE 50 MG TAB PO SCH ×2 (05:41→17:22)
[2019-08-01] MEDS: GABAPENTIN 100 MG CAP PO SCH ×3 (05:41→22:04)
[2019-08-01] MEDS: HumaLOG INSULIN (NovoLOG) PER UNIT SC SCH ×4 (07:30→21:00)
[2019-08-01] MEDS: ISOSORBIDE MON. (IMDUR) 30 MG XR TAB PO SCH (09:00)
[2019-08-01] MEDS: lisinopriL 5 MG TAB PO SCH (09:00)
[2019-08-01] MEDS: TAMSULOSIN 0.4 MG CAP PO SCH (09:16)
[2019-08-01] MEDS: FLECAINIDE 50MG TABLET PO SCH ×2 (09:16→17:24)
[2019-08-01] MEDS: ASPIRIN 81 MG ENTERIC TAB PO SCH (09:16)
[2019-08-01] MEDS: CitaloPRAM (CeleXA) 10 MG TABLET PO SCH (09:16)
[2019-08-01] MEDS ORDERED: SLF 3 ML SYR IV PRN (13:00)
[2019-08-01] MEDS: LIDOCAINE 5% (LIDODERM) PATCH TD SCH (13:54)
[2019-08-01] MEDS: SLF 3 ML SYR IV SCH ×2 (13:54→22:04)
[2019-08-01] MEDS: cefTRIAXone SOD 1 GM in D5W MINI-BAG PLUS 50 ML IV SCH (17:22)
[2019-08-01] MEDS: **NOTE PATIENT COMMENT** MISC XX SCH (21:00)
[2019-08-02] VITALS (28 sets, daily range): BP systolic 127–180; BP diastolic 60–92; O2SAT 88–98
--- NOTE | 2019-08-02 00:42 | IPNPDOC ---
Subjective Date Seen The patient was seen on 08/01/19. Subjective Chief Complaint/HPI She has been seen by pain management, and we have changed medications per their recommendations. She continues to report poorly controlled pain, this time along her right neck/shoulder, as well as her abdomen into her low back. Per nursing, did not try the K pad. Skin: Denies: Rash Pulmonary: Denies: Dyspnea, Cough Cardiovascular: Denies: Chest Pain Gastrointestinal: Reports: Abdominal Pain; Denies: Nausea, Vomiting, Diarrhea, Constipation Psych: Reports: Mood Normal Objective Physical Examination General Exam: Positive: Alert, No Acute Distress Eye Exam: Positive: PERRLA, Conjunctiva & lids normal, EOMI; Negative: Sclera icteric Neck Exam: Positive: Supple; Negative: JVD, thyromegaly Chest Exam: Positive: Clear to auscultation, Normal air movement Heart Exam: Positive: Rate Normal, Irregular Rhythm; Negative: Murmurs, Rubs Telemetry: Positive: Atrial fibrillation Abdomen Exam: Positive: Normal bowel sounds, Soft, Other (tenderness to RUQ and RLQ on light palpation) Psych Exam: Positive: Mental status NL, Mood NL, Oriented x 3 Assessment /Plan Problems (1) Intractable low back pain Onset Date: 03/22/2014 Status: Acute Problem Text: 08/01 -- medication per pain managemen. Added a Lidoderm patch, may increase gabapentin if needed. PT ordered. call placed to pain management for consult. message left. Continuous oximetry due to intensity of pain regimen. 1 (2) Renal calculus Problem Text: non-obstructing renal calculus. patient notes her abdominal pain is consistent with prior kidney stone episodes. Taking Flomax. (3) UTI (urinary tract infection) Status: Acute Problem Text: abnormal UA. culture pending. treated empirically with Ceftriaxone. (4) Hypertension Status: Chronic Problem Text: elevated BP with pain. Continue home medications. (5) Hypothyroidism Status: Chronic Problem Text: stable TSH and T4 04/2019. (6) Diabetes mellitus Status: Chronic Problem Text: Regular insulin sliding scale. Metformin on hold. Plan/VTE VTE Prophylaxis Ordered?: Yes VS, I&O, 24H, Fishbone Vital Signs/I&O Vital Signs Date Time Temp Pulse Resp B/P (MAP) Pulse Ox O2 Delivery O2 Flow Rate FiO2 08/01/19 20:00 97.2 75 16 125/56 (79) 93 Room Air 08/01/19 17:00 1.0 I&O- Last 24 Hours up to 6 AM 08/02/19 06:00 Intake Total 760 ml Output Total 700 ml Balance 60 ml Laboratory Data 24H LABS Laboratory Tests 2 08/01/19 03:53: Immature Granulocyte % (Auto) 0.2, Neutrophils (%) (Auto) 31.3L, Lymphocytes (%) (Auto) 52.6H, Monocytes (%) (Auto) 13.0H, Eosinophils (%) (Auto) 2.6, Basophils (%) (Auto) 0.3, Neutrophils # (Auto) 1.9, Lymphocytes # (Auto) 3.2, Monocytes # (Auto) 0.8, Eosinophils # (Auto) 0.2, Basophils # (Auto) 0.0, Nucleated Red Blood Cells % (auto) 0.0, Anion Gap 4L, Glomerular Filtration Rate 55.8, Calcium Level 7.8L, Magnesium Level 1.7L 08/01/19 11:51: Bedside Glucose (Misc Panel) 136H 08/01/19 16:35: Bedside Glucose (Misc Panel) 121H 08/01/19 20:05: Bedside Glucose (Misc Panel) 163H CBC/BMP Laboratory Tests 08/01/19 03:53 Microbiology Microbiology 07/30/19 Urine Culture - Final, Complete Escherichia Coli AFSANEH REILLY DO Aug 02, 2019 00:42
[2019-08-02] MEDS: BACLOFEN 5MG PER 1/2 TABLET PO SCH ×5 (00:46→23:59)
[2019-08-02] MEDS: KETOROLAC 30 MG/ML VIAL (J1885) IV SCH ×4 (04:25→20:26)
[2019-08-02 05:18] LABS: BASO % 0.2 % (0.0-1.0); EOS # 0.1 10^3/uL (0.0-0.5); EOS % 1.5 % (0.0-3.0); HEMATOCRIT 30.2 % (36.0-47.0); HEMOGLOBIN 9.7 g/dl (12.0-15.5); LYMPH # 3.3 10^3/uL (1.5-5.0); LYMPH % 38.7 % (24.0-44.0); MEAN CORPUSCULAR HEMOGLOBIN 29.9 pg (27.0-33.0); MEAN CORPUSCULAR HGB CONC 32.1 g/dl (32.0-36.5); MEAN CORPUSCULAR VOLUME 93.2 fl (80.0-96.0); MONO # 0.8 10^3/uL (0.0-0.8); MONO % 9.2 % (0.0-5.0); NEUTROPHILS # 4.2 10^3/uL (1.5-8.5); PLATELET COUNT, AUTOMATED 190 10^3/uL (150-450); RED BLOOD COUNT 3.24 10^6/uL (4.00-5.40); WHITE BLOOD COUNT 8.5 10^3/uL (4.0-10.0)
[2019-08-02] MEDS: APIXABAN 5 MG TAB (ELIQUIS) PO SCH ×2 (05:33→17:11)
[2019-08-02] MEDS: METOPROLOL TART 50 MG TAB PO SCH ×2 (05:33→17:11)
[2019-08-02] MEDS: QUEtiapine FUMARATE 50 MG TAB PO SCH ×2 (05:34→17:10)
[2019-08-02] MEDS: GABAPENTIN 100 MG CAP PO SCH ×3 (05:34→20:26)
[2019-08-02] MEDS: SLF 3 ML SYR IV SCH ×3 (05:34→20:28)
[2019-08-02] MEDS: LEVOTHYROXINE 112MCG TABLET (0.112MG) PO SCH (05:34)
[2019-08-02 05:55] LABS: BLOOD UREA NITROGEN 21 MG/DL (7-18); CALCIUM LEVEL 8.6 MG/DL (8.8-10.2); CARBON DIOXIDE LEVEL 27 MEQ/L (21-32); CHLORIDE LEVEL 107 MEQ/L (98-107); GLOMERULAR FILTRATION RATE > 60.0 (>39); GLUCOSE, FASTING 148 MG/DL (70-100); MAGNESIUM LEVEL 1.8 MG/DL (1.8-2.4); POTASSIUM SERUM 4.2 MEQ/L (3.5-5.1); SODIUM LEVEL 140 MEQ/L (136-145)
[2019-08-02] MEDS: CitaloPRAM (CeleXA) 10 MG TABLET PO SCH (08:48)
[2019-08-02] MEDS: TAMSULOSIN 0.4 MG CAP PO SCH (08:48)
[2019-08-02] MEDS: ASPIRIN 81 MG ENTERIC TAB PO SCH (08:49)
[2019-08-02] MEDS: ISOSORBIDE MON. (IMDUR) 30 MG XR TAB PO SCH (08:49)
[2019-08-02] MEDS: lisinopriL 5 MG TAB PO SCH (08:49)
[2019-08-02] MEDS: HumaLOG INSULIN (NovoLOG) PER UNIT SC SCH ×4 (08:50→20:18)
[2019-08-02] MEDS: FLECAINIDE 50MG TABLET PO SCH ×2 (08:50→17:17)
[2019-08-02] MEDS: LIDOCAINE 5% (LIDODERM) PATCH TD SCH (08:52)
--- NOTE | 2019-08-02 12:35 | REP ---
Clinical: New onset upper extremity weakness . Technique: Axial noncontrast images from the skull base to the vertex with coronal re-formations. Comparison: 04/29/2019 Findings: Age-related atrophy and microvascular ischemic changes are appreciated. The ventricles and sulci are symmetric. Funez-white differentiation is maintained. There is no evidence for acute intracranial hemorrhage, mass/mass effect, pathology or infarction. No extra-axial fluid collection. Calvarium is intact. Paranasal sinuses and mastoid air cells are clear. Impression: Age related atrophy and microvascular ischemic changes. No acute intracranial hemorrhage, infarction, or mass/mass effect. Electronically Signed by Fernando Garza MD 08/02/2019 12:27 P
[2019-08-02] MEDS: PERCOCET 5MG/325MG TAB PO PRN ×2 (14:51→20:26)
--- NOTE | 2019-08-02 15:11 | IPNPDOC ---
Subjective Date Seen The patient was seen on 08/02/19. Subjective Chief Complaint/HPI Patient complains of persistent pain in her R lower back and stomach. Last night she received some Dilaudid for pain control, and she became sleepy and sedated, only waking up at midmorning. She no longer complains of neck or shoulder pain. Constitutional: Denies: Chills, Fever ENT: Denies: Head Aches Skin: Denies: Rash Pulmonary: Denies: Dyspnea, Cough Cardiovascular: Denies: Chest Pain, Palpitations, Orthopnea Gastrointestinal: Reports: Abdominal Pain; Denies: Nausea, Vomiting, Diarrhea, Constipation Musculoskeletal: Reports: Back Pain; Denies: Neck Pain Psych: Reports: Mood Normal Objective Physical Examination General Exam: Positive: Alert, No Acute Distress Eye Exam: Positive: PERRLA, Conjunctiva & lids normal, EOMI; Negative: Sclera icteric Neck Exam: Positive: Supple; Negative: JVD, thyromegaly Chest Exam: Positive: Clear to auscultation, Normal air movement Heart Exam: Positive: Rate Normal, Irregular Rhythm; Negative: Murmurs, Rubs Telemetry: Positive: Atrial fibrillation Abdomen Exam: Positive: Normal bowel sounds, Soft, Other (tenderness to RUQ and RLQ on light palpation) Psych Exam: Positive: Mental status NL, Mood NL, Oriented x 3 Assessment /Plan Problems (1) Intractable low back pain Onset Date: 03/22/2014 Status: Acute Problem Text: 08/02 --pain continues. Gabapentin increased, Percocet added, Dilaudid stopped for excessive sedation. May need to reconsult pain 08/01 -- medication per pain managemen. Added a Lidoderm patch, may increase gabapentin if needed. PT ordered. call placed to pain management for consult. message left. Continuous oximetry due to intensity of pain regimen. 1 (2) Renal calculus Problem Text: non-obstructing renal calculus. patient notes her abdominal pain is consistent with prior kidney stone episodes. Taking Flomax. (3) UTI (urinary tract infection) Status: Acute Problem Text: abnormal UA. culture pending. treated empirically with Ceftriaxone. (4) Hypertension Status: Chronic Problem Text: elevated BP with pain. Continue home medications. (5) Hypothyroidism Status: Chronic Problem Text: stable TSH and T4 04/2019. (6) Diabetes mellitus Status: Chronic Problem Text: Regular insulin sliding scale. Metformin on hold. Plan/VTE VTE Prophylaxis Ordered?: Yes VS, I&O, 24H, Fishbone Vital Signs/I&O Vital Signs Date Time Temp Pulse Resp B/P (MAP) Pulse Ox O2 Delivery O2 Flow Rate FiO2 08/02/19 14:51 20 Nasal Cannula 08/02/19 12:00 94 08/02/19 12:00 98.2 88 160/76 (104) 08/02/19 09:00 1.0 I&O- Last 24 Hours up to 6 AM 08/02/19 05:59 Intake Total 1300 ml Output Total 1100 ml Balance 200 ml Laboratory Data 24H LABS Laboratory Tests 2 08/01/19 16:35: Bedside Glucose (Misc Panel) 121H 08/01/19 20:05: Bedside Glucose (Misc Panel) 163H 08/02/19 04:35: Immature Granulocyte % (Auto) 0.4, Neutrophils (%) (Auto) 50.0, Lymphocytes (%) (Auto) 38.7, Monocytes (%) (Auto) 9.2H, Eosinophils (%) (Auto) 1.5, Basophils (%) (Auto) 0.2, Neutrophils # (Auto) 4.2, Lymphocytes # (Auto) 3.3, Monocytes # (Auto) 0.8, Eosinophils # (Auto) 0.1, Basophils # (Auto) 0.0, Nucleated Red Blood Cells % (auto) 0.0, Anion Gap 6L, Glomerular Filtration Rate > 60.0, Calcium Level 8.6L, Magnesium Level 1.8 08/02/19 11:40: Bedside Glucose (Misc Panel) 224H CBC/BMP Laboratory Tests 08/02/19 04:35 Microbiology Microbiology 07/30/19 Urine Culture - Final, Complete Escherichia Coli AFSAENH REILLY DO Aug 02, 2019 15:11
[2019-08-02] MEDS: cefTRIAXone SOD 1 GM in D5W MINI-BAG PLUS 50 ML IV SCH (17:10)
[2019-08-02] MEDS: **NOTE PATIENT COMMENT** MISC XX SCH (20:28)
[2019-08-03] VITALS (26 sets, daily range): BP systolic 128–200; BP diastolic 58–94; O2SAT 92–100
[2019-08-03] MEDS: KETOROLAC 30 MG/ML VIAL (J1885) IV SCH (04:18)
[2019-08-03] MEDS: METOPROLOL TART 50 MG TAB PO SCH ×2 (05:32→17:26)
[2019-08-03] MEDS: LEVOTHYROXINE 112MCG TABLET (0.112MG) PO SCH (05:32)
[2019-08-03] MEDS: QUEtiapine FUMARATE 50 MG TAB PO SCH ×2 (05:32→17:31)
[2019-08-03] MEDS: APIXABAN 5 MG TAB (ELIQUIS) PO SCH ×2 (05:33→17:27)
[2019-08-03] MEDS: BACLOFEN 5MG PER 1/2 TABLET PO SCH ×4 (05:33→23:51)
[2019-08-03] MEDS: GABAPENTIN 100 MG CAP PO SCH ×3 (05:33→20:33)
[2019-08-03] MEDS: PERCOCET 5MG/325MG TAB PO PRN ×3 (05:36→20:33)
[2019-08-03] MEDS: SLF 3 ML SYR IV SCH ×3 (05:36→20:37)
[2019-08-03 05:43] LABS: BASO % 0.3 % (0.0-1.0); EOS # 0.1 10^3/uL (0.0-0.5); EOS % 1.5 % (0.0-3.0); HEMATOCRIT 29.4 % (36.0-47.0); HEMOGLOBIN 9.2 g/dl (12.0-15.5); MEAN CORPUSCULAR HEMOGLOBIN 29.3 pg (27.0-33.0); MEAN CORPUSCULAR HGB CONC 31.3 g/dl (32.0-36.5); MEAN CORPUSCULAR VOLUME 93.6 fl (80.0-96.0); MONO # 0.6 10^3/uL (0.0-0.8); MONO % 8.5 % (0.0-5.0); NEUTROPHILS # 4.7 10^3/uL (1.5-8.5); NEUTROPHILS % 62.3 % (36.0-66.0); PLATELET COUNT, AUTOMATED 178 10^3/uL (150-450); RED BLOOD COUNT 3.14 10^6/uL (4.00-5.40); WHITE BLOOD COUNT 7.6 10^3/uL (4.0-10.0)
[2019-08-03] MEDS ORDERED: hydrALAZINE INJ 20 MG/ML VIAL IV STA (05:50)
[2019-08-03 05:56] LABS: BLOOD UREA NITROGEN 20 MG/DL (7-18); CALCIUM LEVEL 8.4 MG/DL (8.8-10.2); CARBON DIOXIDE LEVEL 27 MEQ/L (21-32); CHLORIDE LEVEL 107 MEQ/L (98-107); CREATININE FOR GFR 0.88 MG/DL (0.55-1.30); GLOMERULAR FILTRATION RATE > 60.0 (>39); GLUCOSE, FASTING 165 MG/DL (70-100); MAGNESIUM LEVEL 1.7 MG/DL (1.8-2.4); POTASSIUM SERUM 3.8 MEQ/L (3.5-5.1); SODIUM LEVEL 140 MEQ/L (136-145)
[2019-08-03 06:20] LABS: TROPONIN I 0.04 NG/ML (< 0.10)
--- NOTE | 2019-08-03 06:46 | REPVR ---
PROCEDURE INFORMATION: Exam: XR Chest, 1 View Exam date and time: 08/03/2019 6:16 AM Age: 78 years old Clinical indication: Shortness of breath; Additional info: SOB TECHNIQUE: Imaging protocol: XR of the chest Views: 1 view. COMPARISON: CR PORTABLE CHEST X-RAY 04/29/2019 12:07 PM FINDINGS: Lungs: Slightly increased right base infiltrate or atelectasis. The left lung is similar. Pleural space: Minimal right pleural effusion which is new. Small left pleural effusion is probably similar. Heart/Mediastinum: The heart and mediastinum are unchanged. Bones/joints: Unremarkable. IMPRESSION: 1. Slightly increased right base infiltrate or atelectasis and new minimal right pleural effusion since 04/29/2019. 2. Otherwise stable chest. Electronically signed by: Raffi Bhagat On 08/03/2019 06:46:03 AM
[2019-08-03] MEDS: ISOSORBIDE MON. (IMDUR) 30 MG XR TAB PO SCH (09:11)
[2019-08-03] MEDS: HumaLOG INSULIN (NovoLOG) PER UNIT SC SCH ×4 (09:11→20:36)
[2019-08-03] MEDS: TAMSULOSIN 0.4 MG CAP PO SCH (09:11)
[2019-08-03] MEDS: lisinopriL 5 MG TAB PO SCH (09:11)
[2019-08-03] MEDS: LIDOCAINE 5% (LIDODERM) PATCH TD SCH (09:12)
[2019-08-03] MEDS: ASPIRIN 81 MG ENTERIC TAB PO SCH (09:12)
[2019-08-03] MEDS: CitaloPRAM (CeleXA) 10 MG TABLET PO SCH (09:12)
--- NOTE | 2019-08-03 09:14 | IPNPDOC ---
Subjective Date Seen The patient was seen on 08/03/19. Subjective Chief Complaint/HPI Pt this morning states that she is feeling a lot better. She states that her pain is better controlled. She slept well last night and thinks this is contributing to her feeling better. General: Reports: Fatigue Constitutional: Denies: Chills, Fever Pulmonary: Denies: Dyspnea, Cough Cardiovascular: Denies: Chest Pain, Palpitations Gastrointestinal: Denies: Nausea, Vomiting, Diarrhea Neurological: Denies: Weakness Psych: Reports: Mood Normal Objective Physical Examination General Exam: Positive: Alert, No Acute Distress Neck Exam: Positive: Supple; Negative: JVD, thyromegaly Chest Exam: Positive: Clear to auscultation, Normal air movement Heart Exam: Positive: Rate Normal, Irregular Rhythm; Negative: Murmurs, Rubs Telemetry: Positive: Atrial fibrillation Abdomen Exam: Positive: Normal bowel sounds, Soft; Negative: Other Extremity Exam: Negative: Edema Psych Exam: Positive: Mental status NL Assessment /Plan Problems (1) Hypertensive urgency Status: Acute Discussed With: Patient Problem Specific Plan: Monitor Clinically, Repeat Labs Problem Text: Pressures have ranged from 91-200 SBP, will DC Toradol as this is likely contributing to her BP spikes, her use of Dilaudid has been reduced, as she was previously taking 0.6 mg, now only has 0.3 mg available and hasn't used this in more than 24 hours, this could be contributing to the hypotensive episodes. \ Cont with lisinopril 5 mg, Lopressor 50 mg BID, Imdur 30 mg daily, adjust as appropriate. (2) Intractable low back pain Onset Date: 03/22/2014 Status: Acute Problem Text: 08/03 Pain improved, she is currently on Toradol, Percocet and Dilaudid. Toradol DC as this could be adversely affecting her BP, cont with Percocet, Dilaudid 0.3 mg q3h prn also available, last use 08/02 at 140 am 08/02 --pain continues. Gabapentin increased, Percocet added, Dilaudid stopped for excessive sedation. May need to reconsult pain 08/01 -- medication per pain managemen. Added a Lidoderm patch, may increase gabapentin if needed. PT ordered. call placed to pain management for consult. message left. Continuous oximetry due to intensity of pain regimen. 1 (3) UTI (urinary tract infection) Status: Acute Problem Text: 08/03 Culture + E coli, alonso sensitive, has received 4 days IV rocephin, will receive last dose today, then DC abx 08/02 abnormal UA. culture pending. treated empirically with Ceftriaxone. (4) Renal calculus Problem Text: non-obstructing renal calculus. patient notes her abdominal pain is consistent with prior kidney stone episodes. Taking Flomax. (5) Hypertension Status: Chronic Problem Text: elevated BP with pain. Continue home medications. (6) Hypothyroidism Status: Chronic Problem Text: stable TSH and T4 04/2019. (7) Diabetes mellitus Status: Chronic Problem Text: Regular insulin sliding scale. Metformin on hold. Plan/VTE VTE Prophylaxis Ordered?: Yes VS, I&O, 24H, Fishbone Vital Signs/I&O Vital Signs Date Time Temp Pulse Resp B/P (MAP) Pulse Ox O2 Delivery O2 Flow Rate FiO2 08/03/19 08:00 97.6 82 18 129/64 (85) 96 Nasal Cannula 1.0 I&O- Last 24 Hours up to 6 AM 08/03/19 06:00 Intake Total 890 ml Output Total 650 ml Balance 240 ml Laboratory Data 24H LABS Laboratory Tests 2 08/02/19 11:40: Bedside Glucose (Misc Panel) 224H 08/02/19 16:25: Bedside Glucose (Misc Panel) 113H 08/02/19 19:42: Bedside Glucose (Misc Panel) 156H 08/03/19 05:18: Immature Granulocyte % (Auto) 0.4, Neutrophils (%) (Auto) 62.3, Lymphocytes (%) (Auto) 27.0, Monocytes (%) (Auto) 8.5H, Eosinophils (%) (Auto) 1.5, Basophils (%) (Auto) 0.3, Neutrophils # (Auto) 4.7, Lymphocytes # (Auto) 2.0, Monocytes # (Auto) 0.6, Eosinophils # (Auto) 0.1, Basophils # (Auto) 0.0, Nucleated Red Blood Cells % (auto) 0.0, Anion Gap 6L, Glomerular Filtration Rate > 60.0, Calcium Level 8.4L, Magnesium Level 1.7L, Troponin I 0.04 CBC/BMP Laboratory Tests 08/03/19 05:18 Microbiology Microbiology 07/30/19 Urine Culture - Final, Complete Escherichia Coli BURRIS,ARIELLA N. PA-C Aug 03, 2019 09:14 Bruno Hollingsworth MD Aug 03, 2019 09:53
[2019-08-03] MEDS: FLECAINIDE 50MG TABLET PO SCH ×2 (09:17→17:27)
[2019-08-03 13:56] LABS: APPEARANCE, URINE HAZY (CLEAR); BACTERIA, URINE AUTO NEGATIVE (NEGATIVE); BILIRUBIN, URINE AUTO NEGATIVE (NEGATIVE); BLOOD, URINE BLOOD NEGATIVE (NEGATIVE); COLOR, URINE YELLOW (YELLOW); GLUCOSE, URINE (UA) AUTO NEGATIVE (NEGATIVE); KETONE, URINE AUTO NEGATIVE (NEGATIVE); LEUKOCYTE ESTERASE, URINE AUTO 1+ (NEGATIVE); NITRITE, URINE AUTO NEGATIVE (NEGATIVE); PROTEIN, URINE AUTO 1+ mg/dL (NEGATIVE); RBC, URINE AUTO 6 /HPF (0-3); SPECIFIC GRAVITY URINE AUTO 1.019 (1.002-1.035); SQUAMOUS EPITHELIAL CELL UR AU 0 /HPF (0-6); UROBILINOGEN, URINE AUTO 0.2 mg/dL (0.0-2.0); WBC, URINE AUTO 9 /HPF (0-3)
[2019-08-03] MEDS: cefTRIAXone SOD 1 GM in D5W MINI-BAG PLUS 50 ML IV SCH (17:49)
[2019-08-03] MEDS: **NOTE PATIENT COMMENT** MISC XX SCH (20:36)
[2019-08-04] VITALS (18 sets, daily range): BP systolic 138–178; BP diastolic 64–87; O2SAT 90–98
[2019-08-04] MEDS: PERCOCET 5MG/325MG TAB PO PRN ×4 (04:07→22:19)
[2019-08-04] MEDS: LEVOTHYROXINE 112MCG TABLET (0.112MG) PO SCH (05:46)
[2019-08-04] MEDS: BACLOFEN 5MG PER 1/2 TABLET PO SCH ×4 (05:46→23:44)
[2019-08-04] MEDS: GABAPENTIN 100 MG CAP PO SCH ×3 (05:47→20:53)
[2019-08-04] MEDS: METOPROLOL TART 50 MG TAB PO SCH ×2 (05:47→17:33)
[2019-08-04] MEDS: QUEtiapine FUMARATE 50 MG TAB PO SCH ×2 (05:47→20:54)
[2019-08-04] MEDS: APIXABAN 5 MG TAB (ELIQUIS) PO SCH ×2 (05:47→17:32)
[2019-08-04] MEDS: SLF 3 ML SYR IV SCH ×3 (05:49→20:55)
[2019-08-04 05:58] LABS: BASO % 0.3 % (0.0-1.0); EOS # 0.2 10^3/uL (0.0-0.5); HEMATOCRIT 27.5 % (36.0-47.0); HEMOGLOBIN 8.8 g/dl (12.0-15.5); LYMPH # 2.2 10^3/uL (1.5-5.0); LYMPH % 30.1 % (24.0-44.0); MEAN CORPUSCULAR HEMOGLOBIN 29.6 pg (27.0-33.0); MEAN CORPUSCULAR VOLUME 92.6 fl (80.0-96.0); MONO # 0.7 10^3/uL (0.0-0.8); MONO % 9.4 % (0.0-5.0); NEUTROPHILS # 4.3 10^3/uL (1.5-8.5); NEUTROPHILS % 57.9 % (36.0-66.0); PLATELET COUNT, AUTOMATED 188 10^3/uL (150-450); RED BLOOD COUNT 2.97 10^6/uL (4.00-5.40); WHITE BLOOD COUNT 7.4 10^3/uL (4.0-10.0)
[2019-08-04 06:24] LABS: BLOOD UREA NITROGEN 12 MG/DL (7-18); CALCIUM LEVEL 8.3 MG/DL (8.8-10.2); CARBON DIOXIDE LEVEL 27 MEQ/L (21-32); CHLORIDE LEVEL 104 MEQ/L (98-107); CREATININE FOR GFR 0.69 MG/DL (0.55-1.30); GLOMERULAR FILTRATION RATE > 60.0 (>39); GLUCOSE, FASTING 141 MG/DL (70-100); MAGNESIUM LEVEL 1.6 MG/DL (1.8-2.4); POTASSIUM SERUM 3.6 MEQ/L (3.5-5.1); SODIUM LEVEL 138 MEQ/L (136-145)
--- NOTE | 2019-08-04 06:58 | ECGEPIP ---
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
[2019-08-04] MEDS: HumaLOG INSULIN (NovoLOG) PER UNIT SC SCH ×4 (08:22→20:54)
[2019-08-04] MEDS: LIDOCAINE 5% (LIDODERM) PATCH TD SCH (08:22)
[2019-08-04] MEDS: ASPIRIN 81 MG ENTERIC TAB PO SCH (08:23)
[2019-08-04] MEDS: TAMSULOSIN 0.4 MG CAP PO SCH (08:23)
[2019-08-04] MEDS: CitaloPRAM (CeleXA) 10 MG TABLET PO SCH (08:23)
[2019-08-04] MEDS: FLECAINIDE 50MG TABLET PO SCH ×2 (08:30→20:54)
[2019-08-04] MEDS: ISOSORBIDE MON. (IMDUR) 30 MG XR TAB PO SCH (08:36)
[2019-08-04] MEDS: lisinopriL 5 MG TAB PO SCH (08:36)
[2019-08-04] MEDS ORDERED: MAG SULF 1GM/100ML (MAG RUN) 1 GM in IV 1 EA IV ONE (09:00)
--- NOTE | 2019-08-04 09:05 | IPNPDOC ---
Subjective Date Seen The patient was seen on 08/04/19. Subjective Chief Complaint/HPI Reports that her back pain is improved - responded to Percocet this am and feels pain is well controlled currently Constitutional: Denies: Chills, Fever Pulmonary: Denies: Dyspnea, Cough Cardiovascular: Denies: Chest Pain, Palpitations Gastrointestinal: Denies: Nausea, Vomiting, Abdominal Pain, Diarrhea, Constipation Objective Physical Examination General Exam: Positive: Alert, No Acute Distress Neck Exam: Positive: Supple; Negative: JVD, thyromegaly Chest Exam: Positive: Clear to auscultation, Normal air movement Heart Exam: Positive: Rate Normal, Irregular Rhythm; Negative: Murmurs, Rubs Telemetry: Positive: Atrial fibrillation Abdomen Exam: Positive: Normal bowel sounds, Soft; Negative: Other Extremity Exam: Negative: Edema Psych Exam: Positive: Mental status NL Assessment /Plan Problems (1) Atelectasis Status: Acute Problem Text: CXR 08/03: IMPRESSION: 1. Slightly increased right base infiltrate or atelectasis and new minimal right pleural effusion since 04/29/2019. Oxygen sats borderline on 1Liter - Will try to wean off oxygen. Increase activity and encourage IS today. (2) Hypertensive urgency Status: Acute Discussed With: Patient Problem Specific Plan: Monitor Clinically, Repeat Labs Problem Text: 08/04- BP remains somewhat variable, but overall improved with better pain control and d/c of Toradol Cont with lisinopril 5 mg, Lopressor 50 mg BID, Imdur 30 mg daily (3) Intractable low back pain Onset Date: 03/22/2014 Status: Acute Problem Text: 08/04 - Pain controlled with Percocet. Last Dilaudid given 08/02 Starting PT. Believes she is taking seroquel as pain control adjunct. Dubious value and she has been sedated during the day so will d/c am dose and then pm dose stepwise. 08/03 Pain improved, she is currently on Toradol, Percocet and Dilaudid. Toradol DC as this could be adversely affecting her BP, cont with Percocet, Dilaudid 0.3 mg q3h prn also available, last use 08/02 at 140 am 08/02 --pain continues. Gabapentin increased, Percocet added, Dilaudid stopped for excessive sedation. May need to reconsult pain 08/01 -- medication per pain managemen. Added a Lidoderm patch, may increase gabapentin if needed. PT ordered. call placed to pain management for consult. message left. Continuous oximetry due to intensity of pain regimen. 1 (4) UTI (urinary tract infection) Status: Acute Problem Text: 08/04 - s/p 5 days IV Rocephin for E. Coli + U/C 08/03 Culture + E coli, alonso sensitive, has received 4 days IV rocephin, will receive last dose today, then DC abx 08/02 abnormal UA. culture pending. treated empirically with Ceftriaxone. (5) Renal calculus Problem Text: non-obstructing renal calculus. patient notes her abdominal pain is consistent with prior kidney stone episodes. Taking Flomax. (6) Hypertension Status: Chronic Problem Text: elevated BP with pain. Continue home medications. Likely needs increase in maintenance bp meds for optimal control. (7) Hypothyroidism Status: Chronic Problem Text: stable TSH and T4 04/2019. (8) Diabetes mellitus Status: Chronic Problem Text: Restart Metformin Plan/VTE VTE Prophylaxis Ordered?: Yes (Sylvia) [facility]O Vital Signs Date Time Temp Pulse Resp B/P (MAP) Pulse Ox O2 Delivery O2 Flow Rate FiO2 08/04/19 08:36 160/70 08/04/19 08:33 1.0 08/04/19 06:00 90 Nasal Cannula 08/04/19 05:47 84 08/04/19 04:37 97.1 22 I&O- Last 24 Hours up to 6 AM 08/04/19 06:00 Intake Total 700 ml Output Total 1000 ml Balance -300 ml Laboratory Data 24H LABS Laboratory Tests 2 08/03/19 12:24: Bedside Glucose (Misc Panel) 160H 08/03/19 13:16: Urine Color YELLOW, Urine Appearance HAZY, Urine pH 5.0, Urine Specific [place] 1.019, Urine Protein 1+H, Urine Glucose (Auto)(UA) NEGATIVE, Urine Ketones (Auto) NEGATIVE, Urine Blood NEGATIVE, Urine Nitrite NEGATIVE, Urine Bilirubin NEGATIVE, Urine Urobilinogen 0.2, Urine Leukocyte Esterase (Auto) 1+H, Urine WBC (Auto) 9H, Urine RBC (Auto) 6H, Urine Hyaline Casts (Auto) 0, Urine Bacteria (Auto) NEGATIVE, Urine Squamous Epithelial Cells 0, Urine Sperm (Auto) 08/03/19 17:06: Bedside Glucose (Misc Panel) 144H 08/03/19 20:36: Bedside Glucose (Misc Panel) 147H 08/04/19 05:36: Immature Granulocyte % (Auto) 0.3, Neutrophils (%) (Auto) 57.9, Lymphocytes (%) (Auto) 30.1, Monocytes (%) (Auto) 9.4H, Eosinophils (%) (Auto) 2.0, Basophils (%) (Auto) 0.3, Neutrophils # (Auto) 4.3, Lymphocytes # (Auto) 2.2, Monocytes # (Auto) 0.7, Eosinophils # (Auto) 0.2, Basophils # (Auto) 0.0, Nucleated Red Blood Cells % (auto) 0.0, Anion Gap 7L, Glomerular Filtration Rate > 60.0, Calcium Level 8.3L, Magnesium Level 1.6L CBC/BMP Laboratory Tests 08/04/19 05:36 Microbiology Microbiology 08/03/19 Urine Culture, Received Pending 07/30/19 Urine Culture - Final, Complete Escherichia Coli CORIN COX PA-C Aug 04, 2019 09:05 Bruno Hollingsworth MD Aug 04, 2019 11:12
[2019-08-04] MEDS: metFORMIN (GLUCOPHAGE) 500 MG TAB PO SCH (17:32)
[2019-08-04] MEDS: **NOTE PATIENT COMMENT** MISC XX SCH (20:54)
[2019-08-05] MEDS: METOPROLOL TART 50 MG TAB PO SCH ×2 (05:37→17:44)
[2019-08-05] MEDS: APIXABAN 5 MG TAB (ELIQUIS) PO SCH ×2 (05:37→17:44)
[2019-08-05] MEDS: GABAPENTIN 100 MG CAP PO SCH ×3 (05:37→21:20)
[2019-08-05] MEDS: LEVOTHYROXINE 112MCG TABLET (0.112MG) PO SCH (05:37)
[2019-08-05] MEDS: BACLOFEN 5MG PER 1/2 TABLET PO SCH ×4 (05:37→23:54)
[2019-08-05] MEDS: SLF 3 ML SYR IV SCH ×3 (05:37→21:21)
[2019-08-05] MEDS: PERCOCET 5MG/325MG TAB PO PRN ×5 (05:38→22:28)
[2019-08-05 06:00] VITALS: BP 170/78
[2019-08-05 06:14] LABS: BASO % 0.3 % (0.0-1.0); EOS # 0.2 10^3/uL (0.0-0.5); EOS % 2.3 % (0.0-3.0); HEMATOCRIT 30.4 % (36.0-47.0); HEMOGLOBIN 9.3 g/dl (12.0-15.5); LYMPH % 45.3 % (24.0-44.0); MEAN CORPUSCULAR HEMOGLOBIN 29.1 pg (27.0-33.0); MEAN CORPUSCULAR HGB CONC 30.6 g/dl (32.0-36.5); MONO # 0.7 10^3/uL (0.0-0.8); MONO % 10.8 % (0.0-5.0); NEUTROPHILS # 2.7 10^3/uL (1.5-8.5); NEUTROPHILS % 40.8 % (36.0-66.0); PLATELET COUNT, AUTOMATED 203 10^3/uL (150-450); WHITE BLOOD COUNT 6.6 10^3/uL (4.0-10.0)
[2019-08-05 06:32] LABS: BLOOD UREA NITROGEN 14 MG/DL (7-18); CALCIUM LEVEL 8.4 MG/DL (8.8-10.2); CARBON DIOXIDE LEVEL 29 MEQ/L (21-32); CHLORIDE LEVEL 105 MEQ/L (98-107); CREATININE FOR GFR 0.78 MG/DL (0.55-1.30); GLOMERULAR FILTRATION RATE > 60.0 (>39); GLUCOSE, FASTING 136 MG/DL (70-100); MAGNESIUM LEVEL 1.7 MG/DL (1.8-2.4); POTASSIUM SERUM 3.5 MEQ/L (3.5-5.1); SODIUM LEVEL 140 MEQ/L (136-145)
[2019-08-05] MEDS: LIDOCAINE 5% (LIDODERM) PATCH TD SCH (08:15)
[2019-08-05] MEDS: metFORMIN (GLUCOPHAGE) 500 MG TAB PO SCH ×2 (08:16→17:44)
[2019-08-05] MEDS: TAMSULOSIN 0.4 MG CAP PO SCH (08:16)
[2019-08-05] MEDS: ACETAMINOPHEN TAB 650MG DOSE (2X325MG) PO PRN (08:16)
[2019-08-05] MEDS: CitaloPRAM (CeleXA) 10 MG TABLET PO SCH (08:16)
[2019-08-05] MEDS: ASPIRIN 81 MG ENTERIC TAB PO SCH (08:16)
[2019-08-05] MEDS: HumaLOG INSULIN (NovoLOG) PER UNIT SC SCH (08:16)
[2019-08-05] MEDS: FLECAINIDE 50MG TABLET PO SCH ×2 (08:18→17:44)
[2019-08-05] MEDS: ISOSORBIDE MON. (IMDUR) 30 MG XR TAB PO SCH (08:18)
[2019-08-05] MEDS: lisinopriL 5 MG TAB PO SCH (08:18)
[2019-08-05] MEDS ORDERED: MAG SULF 1GM/100ML (MAG RUN) 1 GM in IV 1 EA IV ONE (09:00)
[2019-08-05] MEDS ORDERED: HYDROMORPHONE HCL 0.5 MG/ 0.5 ML SYRINGE (J1170 PER 1) IV PRN ×2 (10:45)
--- NOTE | 2019-08-05 11:45 | IPNPDOC ---
Subjective Date Seen The patient was seen on 08/05/19. Subjective Chief Complaint/HPI Had severe pain this am not relieved by Percocet x1 tab. Dilaudid IV given - pain much better now. No other complaints Constitutional: Denies: Chills, Fever Pulmonary: Denies: Dyspnea, Cough Cardiovascular: Denies: Chest Pain, Palpitations Gastrointestinal: Denies: Nausea, Vomiting, Abdominal Pain, Diarrhea, Constipation Objective Physical Examination General Exam: Positive: Alert, No Acute Distress Neck Exam: Positive: Supple; Negative: JVD, thyromegaly Chest Exam: Positive: Clear to auscultation, Normal air movement Heart Exam: Positive: Rate Normal, Irregular Rhythm; Negative: Murmurs, Rubs Telemetry: Positive: Atrial fibrillation Abdomen Exam: Positive: Normal bowel sounds, Soft; Negative: Other Extremity Exam: Negative: Edema Psych Exam: Positive: Mental status NL Assessment /Plan Problems (1) Atelectasis Status: Acute Problem Text: 08/05 - Cont to encourage IS and OOB Weaning oxygen - only on 0.5 L NC currently - sats remain in 90s CXR 08/03: IMPRESSION: 1. Slightly increased right base infiltrate or atelectasis and new minimal right pleural effusion since 04/29/2019. (2) Hypertensive urgency Status: Acute Discussed With: Patient Problem Specific Plan: Monitor Clinically, Repeat Labs Problem Text: 08/05 - BP remains elevated at times - I will increase Lisinopril today 08/04- BP remains somewhat variable, but overall improved with better pain control and d/c of Toradol Cont with lisinopril 5 mg, Lopressor 50 mg BID, Imdur 30 mg daily (3) Intractable low back pain Onset Date: 03/22/2014 Status: Acute Problem Text: 08/04 - Pain controlled with Percocet. Last Dilaudid given 08/02 Starting PT. Believes she is taking seroquel as pain control adjunct. Dubious value and she has been sedated during the day so will d/c am dose and then pm dose stepwise. 08/03 Pain improved, she is currently on Toradol, Percocet and Dilaudid. Toradol DC as this could be adversely affecting her BP, cont with Percocet, Dilaudid 0.3 mg q3h prn also available, last use 08/02 at 140 am 08/02 --pain continues. Gabapentin increased, Percocet added, Dilaudid stopped for excessive sedation. May need to reconsult pain 08/01 -- medication per pain managemen. Added a Lidoderm patch, may increase gabapentin if needed. PT ordered. call placed to pain management for consult. message left. Continuous oximetry due to intensity of pain regimen. 1 (4) UTI (urinary tract infection) Status: Acute Problem Text: 08/04 - s/p 5 days IV Rocephin for E. Coli + U/C 08/03 Culture + E coli, alonso sensitive, has received 4 days IV rocephin, will receive last dose today, then DC abx 08/02 abnormal UA. culture pending. treated empirically with Ceftriaxone. (5) Renal calculus Problem Text: non-obstructing renal calculus. patient notes her abdominal pain is consistent with prior kidney stone episodes. Taking Flomax. (6) Hypertension Status: Chronic Problem Text: elevated BP with pain. Continue home medications. Likely needs increase in maintenance bp meds for optimal control. (7) Hypothyroidism Status: Chronic Problem Text: stable TSH and T4 04/2019. (8) Diabetes mellitus Status: Chronic Problem Text: Restart Metformin Plan/VTE VTE Prophylaxis Ordered?: Yes (Eliquis) Plan Therapy: PT Disposition D/C home once safe per PT VS, I&O, 24H, [place] Vital Signs/I&O Vital Signs Date Time Temp Pulse Resp B/P (MAP) Pulse Ox O2 Delivery O2 Flow Rate FiO2 08/05/19 11:18 17 08/05/19 08:23 0.5 08/05/19 08:18 133/69 08/05/19 06:00 97.9 85 95 Nasal Cannula I&O- Last 24 Hours up to 6 AM 08/05/19 06:00 Intake Total 560 ml Output Total 800 ml Balance -240 ml Laboratory Data 24H LABS Laboratory Tests 2 08/04/19 16:48: Bedside Glucose (Misc Panel) 115H 08/04/19 20:16: Bedside Glucose (Misc Panel) 129H 08/05/19 05:59: Immature Granulocyte % (Auto) 0.5, Neutrophils (%) (Auto) 40.8, Lymphocytes (%) (Auto) 45.3H, Monocytes (%) (Auto) 10.8H, Eosinophils (%) (Auto) 2.3, Basophils (%) (Auto) 0.3, Neutrophils # (Auto) 2.7, Lymphocytes # (Auto) 3.0, Monocytes # (Auto) 0.7, Eosinophils # (Auto) 0.2, Basophils # (Auto) 0.0, Nucleated Red Blood Cells % (auto) 0.0, Anion Gap 6L, Glomerular Filtration Rate > 60.0, Calcium Level 8.4L, Magnesium Level 1.7L CBC/BMP Laboratory Tests 08/05/19 05:59 Microbiology Microbiology 08/03/19 Urine Culture - Final, Complete 07/30/19 Urine Culture - Final, Complete Escherichia Coli CORIN COX PA-C Aug 05, 2019 11:45
[2019-08-05 14:00] VITALS: BP 101/49
[2019-08-05 14:23] VITALS: BP 123/67
[2019-08-05 21:00] VITALS: O2SAT 90
[2019-08-05] MEDS: QUEtiapine FUMARATE 50 MG TAB PO SCH (21:20)
[2019-08-05] MEDS: **NOTE PATIENT COMMENT** MISC XX SCH (21:21)
[2019-08-05 22:00] VITALS: BP 164/76
[2019-08-06] MEDS: BACLOFEN 5MG PER 1/2 TABLET PO SCH ×4 (05:36→23:31)
[2019-08-06] MEDS: LEVOTHYROXINE 112MCG TABLET (0.112MG) PO SCH (05:36)
[2019-08-06] MEDS: APIXABAN 5 MG TAB (ELIQUIS) PO SCH ×2 (05:36→17:39)
[2019-08-06] MEDS: METOPROLOL TART 50 MG TAB PO SCH ×2 (05:36→17:38)
[2019-08-06] MEDS: GABAPENTIN 100 MG CAP PO SCH ×4 (05:36→21:05)
[2019-08-06 06:00] VITALS: BP 172/80
[2019-08-06] MEDS ORDERED: NITROGLYCERIN 0.4 MG SUBL TABLET SL PRN (06:45)
[2019-08-06] MEDS: SLF 3 ML SYR IV SCH ×3 (06:46→21:06)
[2019-08-06 07:22] LABS: BASO % 0.3 % (0.0-1.0); EOS # 0.2 10^3/uL (0.0-0.5); EOS % 3.3 % (0.0-3.0); HEMATOCRIT 28.2 % (36.0-47.0); HEMOGLOBIN 8.8 g/dl (12.0-15.5); LYMPH # 3.1 10^3/uL (1.5-5.0); LYMPH % 48.4 % (24.0-44.0); MEAN CORPUSCULAR HEMOGLOBIN 29.2 pg (27.0-33.0); MEAN CORPUSCULAR HGB CONC 31.2 g/dl (32.0-36.5); MEAN CORPUSCULAR VOLUME 93.7 fl (80.0-96.0); MONO # 0.7 10^3/uL (0.0-0.8); MONO % 10.4 % (0.0-5.0); NEUTROPHILS # 2.4 10^3/uL (1.5-8.5); NEUTROPHILS % 37.3 % (36.0-66.0); PLATELET COUNT, AUTOMATED 227 10^3/uL (150-450); RED BLOOD COUNT 3.01 10^6/uL (4.00-5.40); WHITE BLOOD COUNT 6.3 10^3/uL (4.0-10.0)
[2019-08-06] MEDS: PERCOCET 5MG/325MG TAB PO PRN ×4 (07:39→20:26)
--- NOTE | 2019-08-06 07:42 | IPNPDOC ---
Subjective Date Seen The patient was seen on 08/06/19. Subjective Chief Complaint/HPI Patient had episode of Dyspnea and Left chest pain this am. O2 sats were in the 90s at the time, but SBP in 200s. Also was having back pain. NTG SL x 1 given. CP resolved and BP improved into 150s. Still has some Dyspnea with sats remaining in low 90s on 0.5 L NC. Some fleeting desaturations into 80s overnight, but returns to 90s without intervention within seconds. No known h/o JASON. Constitutional: Denies: Chills, Fever Pulmonary: Reports: Dyspnea; Denies: Cough Cardiovascular: Reports: Chest Pain (as above - resolved now); Denies: Palpitations Gastrointestinal: Denies: Nausea, Vomiting, Abdominal Pain, Diarrhea, Constipation Genitourinary: Denies: Dysuria Musculoskeletal: Reports: Back Pain Objective Physical Examination General Exam: Positive: Alert, No Acute Distress Neck Exam: Positive: Supple; Negative: JVD, thyromegaly Chest Exam: Positive: Diminished Heart Exam: Positive: Rate Normal, Irregular Rhythm; Negative: Murmurs, Rubs Telemetry: Positive: Atrial fibrillation Abdomen Exam: Positive: Normal bowel sounds, Soft; Negative: Other Extremity Exam: Negative: Edema Psych Exam: Positive: Mental status NL Assessment /Plan Problems (1) Chest pain Status: Acute Problem Text: Resolved with NTG SL x 1 this am EKG - NSR with NS ST-T wave abnormalities Get enzymes and monitor (2) Atelectasis Status: Acute Problem Text: 08/06 - Despite IS beingordered on this patient, no IS at bedside - remains in her bagged items that were sent up with her upon moving from PCU 2 days ago. Still requiring a little oxygen with c/o dyspnea this am as per HPI. Get repeat CXR Nurse advised to initiate IS Continue to encourage OOB May have some undiagnosed JASON 08/05 - Cont to encourage IS and OOB Weaning oxygen - only on 0.5 L NC currently - sats remain in 90s CXR 08/03: IMPRESSION: 1. Slightly increased right base infiltrate or atelectasis and new minimal right pleural effusion since 04/29/2019. (3) Hypertensive urgency Status: Acute Discussed With: Patient Problem Specific Plan: Monitor Clinically, Repeat Labs Problem Text: 08/06 - BP variable - monitor trend with higher dose of Lisinopril today cont Lopressor and Imdur 08/05 - BP remains elevated at times - I will increase Lisinopril today 08/04- BP remains somewhat variable, but overall improved with better pain control and d/c of Toradol Cont with lisinopril 5 mg, Lopressor 50 mg BID, Imdur 30 mg daily (4) Intractable low back pain Onset Date: 03/22/2014 Status: Acute Problem Text: 08/06 - Still requiring Dilaudid at times, but will see how she does today with Percocet 2 tabs Q4HP \Normally on Gabapentin 300 mg TID at home. I will increase backt ousual HD Add Aleve BID which she has used at home - monitor BP on NSAIDs May need to reconsult pain management - they follow her as outpatient 08/04 - Pain controlled with Percocet. Last Dilaudid given 08/02 Starting PT. Believes she is taking seroquel as pain control adjunct. Dubious value and she has been sedated during the day so will d/c am dose and then pm dose stepwise. 08/03 Pain improved, she is currently on Toradol, Percocet and Dilaudid. Toradol DC as this could be adversely affecting her BP, cont with Percocet, Dilaudid 0.3 mg q3h prn also available, last use 08/02 at 140 am 08/02 --pain continues. Gabapentin increased, Percocet added, Dilaudid stopped for excessive sedation. May need to reconsult pain 08/01 -- medication per pain managemen. Added a Lidoderm patch, may increase gabapentin if needed. PT ordered. call placed to pain management for consult. message left. Continuous oximetry due to intensity of pain regimen. 1 (5) UTI (urinary tract infection) Status: Acute Problem Text: 08/04 - s/p 5 days IV Rocephin for E. Coli + U/C 08/03 Culture + E coli, alonso sensitive, has received 4 days IV rocephin, will receive last dose today, then DC abx 08/02 abnormal UA. culture pending. treated empirically with Ceftriaxone. (6) Renal calculus Problem Text: non-obstructing renal calculus. patient notes her abdominal pain is consistent with prior kidney stone episodes. Taking Flomax. (7) Hypertension Status: Chronic Problem Text: 08/06 - as above (8) Hypothyroidism Status: Chronic Problem Text: stable TSH and T4 04/2019. (9) Diabetes mellitus Status: Chronic Problem Text: Restarted Metformin Plan/VTE VTE Prophylaxis Ordered?: Yes (Eliquis) Plan Therapy: PT Family Medicine Attending Note: I saw and examined Ms. Pollard, discussed with ANTOLIN Ward. Agree with her note as documented. She was seen by physical therapy today and cleared for home pending medical clearance. Her cardiac enzymes are negative 2 so far. She reports the Percocet is doing and okay job with controlling her pain, but doesn't feel like she be ready to go home tomorrow. I will plan on reconsulting pain management for further evaluation and suggestions tomorrow; she already sees them on an outpatient basis. 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) Disposition Discuss with PT/PFS dispo plan VS, I&O, 24H, Fishbone Vital Signs/I&O Vital Signs Date Time Temp Pulse Resp B/P (MAP) Pulse Ox O2 Delivery O2 Flow Rate FiO2 08/06/19 06:48 210/100 08/06/19 06:00 97.2 80 16 92 Room Air 08/05/19 22:00 1.0 I&O- Last 24 Hours up to 6 AM 08/06/19 06:00 Intake Total 660 ml Output Total 650 ml Balance 10 ml Laboratory Data 24H LABS Laboratory Tests 2 08/05/19 11:31: Bedside Glucose (Misc Panel) 116H 08/06/19 06:33: Immature Granulocyte % (Auto) 0.3, Neutrophils (%) (Auto) 37.3, Lymphocytes (%) (Auto) 48.4H, Monocytes (%) (Auto) 10.4H, Eosinophils (%) (Auto) 3.3H, Basophils (%) (Auto) 0.3, Neutrophils # (Auto) 2.4, Lymphocytes # (Auto) 3.1, Monocytes # (Auto) 0.7, Eosinophils # (Auto) 0.2, Basophils # (Auto) 0.0, Nucleated Red Blood Cells % (auto) 0.0 CBC/BMP Laboratory Tests 08/06/19 06:33 Microbiology Microbiology 08/03/19 Urine Culture - Final, Complete 07/30/19 Urine Culture - Final, Complete Escherichia Coli CORIN COX PA-C Aug 06, 2019 7:42 am Jakub Burgess MD Aug 06, 2019 6:08 pm
[2019-08-06 07:45] LABS: BLOOD UREA NITROGEN 15 MG/DL (7-18); CALCIUM LEVEL 8.4 MG/DL (8.8-10.2); CARBON DIOXIDE LEVEL 26 MEQ/L (21-32); CHLORIDE LEVEL 107 MEQ/L (98-107); GLOMERULAR FILTRATION RATE > 60.0 (>39); GLUCOSE, FASTING 112 MG/DL (70-100); MAGNESIUM LEVEL 1.7 MG/DL (1.8-2.4); POTASSIUM SERUM 4.1 MEQ/L (3.5-5.1); SODIUM LEVEL 142 MEQ/L (136-145)
--- NOTE | 2019-08-06 08:03 | ECGEPIP ---
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
[2019-08-06 08:44] LABS: MB/CK RELATIVE INDEX 2.5 (< OR =4); TROPONIN I 0.06 NG/ML (< 0.10)
[2019-08-06] MEDS: ASPIRIN 81 MG ENTERIC TAB PO SCH (09:05)
[2019-08-06] MEDS: LIDOCAINE 5% (LIDODERM) PATCH TD SCH (09:05)
[2019-08-06] MEDS: metFORMIN (GLUCOPHAGE) 500 MG TAB PO SCH ×2 (09:06→17:39)
[2019-08-06] MEDS: TAMSULOSIN 0.4 MG CAP PO SCH (09:07)
[2019-08-06] MEDS: ISOSORBIDE MON. (IMDUR) 30 MG XR TAB PO SCH (09:07)
[2019-08-06] MEDS: FLECAINIDE 50MG TABLET PO SCH ×2 (09:07→17:39)
[2019-08-06] MEDS: CitaloPRAM (CeleXA) 10 MG TABLET PO SCH (09:07)
[2019-08-06] MEDS: lisinopriL 10 MG TAB PO SCH (09:08)
[2019-08-06 11:20] VITALS: O2SAT 93
[2019-08-06 12:59] LABS: CK-MB VALUE MASS 1.1 NG/ML (<3.6); MB/CK RELATIVE INDEX 2.89 (< OR =4); TROPONIN I 0.05 NG/ML (< 0.10)
[2019-08-06 14:00] VITALS: BP 141/70
[2019-08-06 16:40] LABS: CK-MB VALUE MASS < 1.0 NG/ML (<3.6); CPK CREATINE PHOSPHOKINASE 34 U/L (26-192); MB/CK RELATIVE INDEX 2.94 (< OR =4); TROPONIN I 0.06 NG/ML (< 0.10)
[2019-08-06] MEDS: **NOTE PATIENT COMMENT** MISC XX SCH (20:26)
--- NOTE | 2019-08-06 21:10 | REP ---
Clinical: Shortness of breath. Technique: For PA and lateral. Comparison: 07/17/2019. Findings: Stable cardiomegaly and diffuse chronic interstitial changes are appreciated. Subtle basilar atelectasis and possible small left effusion cannot be excluded. Skeletal structures are stable. Impression: Cardiomegaly and chronic interstitial changes Subtle basilar atelectasis and small left effusion cannot be excluded. Electronically Signed by Fernando Garza MD 08/06/2019 09:01 P
[2019-08-06 22:00] VITALS: O2SAT 95
[2019-08-06 22:05] VITALS: BP 158/72
[2019-08-07] MEDS: PERCOCET 5MG/325MG TAB PO PRN ×5 (03:53→23:29)
[2019-08-07] MEDS: BACLOFEN 5MG PER 1/2 TABLET PO SCH ×4 (05:40→23:28)
[2019-08-07] MEDS: METOPROLOL TART 50 MG TAB PO SCH ×2 (05:40→17:35)
[2019-08-07] MEDS: LEVOTHYROXINE 112MCG TABLET (0.112MG) PO SCH (05:40)
[2019-08-07] MEDS: APIXABAN 5 MG TAB (ELIQUIS) PO SCH ×2 (05:40→17:35)
[2019-08-07] MEDS: GABAPENTIN 100 MG CAP PO SCH ×3 (05:41→19:40)
[2019-08-07] MEDS: SLF 3 ML SYR IV SCH ×3 (05:41→19:40)
[2019-08-07 06:00] VITALS: BP 168/66
[2019-08-07] MEDS: TAMSULOSIN 0.4 MG CAP PO SCH (08:31)
[2019-08-07] MEDS: CitaloPRAM (CeleXA) 10 MG TABLET PO SCH (08:31)
[2019-08-07] MEDS: FLECAINIDE 50MG TABLET PO SCH ×2 (08:31→17:35)
[2019-08-07] MEDS: ISOSORBIDE MON. (IMDUR) 30 MG XR TAB PO SCH (08:31)
[2019-08-07] MEDS: metFORMIN (GLUCOPHAGE) 500 MG TAB PO SCH ×2 (08:31→17:35)
[2019-08-07] MEDS: ASPIRIN 81 MG ENTERIC TAB PO SCH (08:31)
[2019-08-07] MEDS: lisinopriL 10 MG TAB PO SCH (08:31)
[2019-08-07] MEDS: LIDOCAINE 5% (LIDODERM) PATCH TD SCH (08:32)
[2019-08-07 09:00] VITALS: O2SAT 97
--- NOTE | 2019-08-07 10:27 | IPNPDOC ---
Subjective Date Seen The patient was seen on 08/07/19. Subjective Chief Complaint/HPI Still with back pain but fairly well controlled with Pecocet. Ambulated well with PT yesterday Constitutional: Denies: Chills, Fever Pulmonary: Reports: Dyspnea (with ambulation but sats remain in 90s on RA with ambulation per PT notes); Denies: Cough Cardiovascular: Denies: Chest Pain, Palpitations Gastrointestinal: Denies: Nausea, Vomiting, Abdominal Pain, Diarrhea, Constipation Objective Physical Examination General Exam: Positive: Alert, No Acute Distress Neck Exam: Positive: Supple; Negative: JVD, thyromegaly Chest Exam: Positive: Diminished Heart Exam: Positive: Rate Normal, Irregular Rhythm; Negative: Murmurs, Rubs Telemetry: Positive: Atrial fibrillation Abdomen Exam: Positive: Normal bowel sounds, Soft; Negative: Other Extremity Exam: Negative: Edema Psych Exam: Positive: Mental status NL Assessment /Plan Problems (1) Chest pain Status: Acute Problem Text: 08/07 - Cardiac enzymes all negative. No further CP /2Resolved with NTG SL x 1 this am EKG - NSR with NS ST-T wave abnormalities Get enzymes and monitor (2) Atelectasis Status: Acute Problem Text: CXR 2 - Cardiomegaly and chronic interstitial changes Subtle basilar atelectasis and small left effusion cannot be excluded. 08/07 - COntinue IS and ambulation Still on NC 0.5L but sats remain in hte 90s on RA with ambulation per PT documentation She gets anxious and SOB with ambulation but not hypoxic 1/2 - Despite IS beingordered on this patient, no IS at bedside - remains in her bagged items that were sent up with her upon moving from PCU 2 days ago. Still requiring a little oxygen with c/o dyspnea this am as per HPI. Get repeat CXR Nurse advised to initiate IS Continue to encourage OOB May have some undiagnosed JASON 08/05 - Cont to encourage IS and OOB Weaning oxygen - only on 0.5 L NC currently - sats remain in 90s CXR 08/03: IMPRESSION: 1. Slightly increased right base infiltrate or atelectasis and new minimal right pleural effusion since 04/29/2019. (3) Hypertensive urgency Status: Acute Discussed With: Patient Problem Specific Plan: Monitor Clinically, Repeat Labs Problem Text: 08/07 - BP remains elevated despite hihger dose of Lisinopril Increase Firther. COnt Lopressor 50 BID, Imdur 30 daily 08/06 - BP variable - monitor trend with higher dose of Lisinopril today cont Lopressor and Imdur 08/05 - BP remains elevated at times - I will increase Lisinopril today 08/04- BP remains somewhat variable, but overall improved with better pain control and d/c of Toradol Cont with lisinopril 5 mg, Lopressor 50 mg BID, Imdur 30 mg daily (4) Intractable low back pain Onset Date: 03/22/2014 Status: Acute Problem Text: 08/07 - Has not gotten Dilaudid in over 48 hours. COnt PErcocet Consult pain clinic again for further recommendations Unable to give NSAIDs do to anticoagulation 08/06 - Still requiring Dilaudid at times, but will see how she does today with Percocet 2 tabs Q4HP \Normally on Gabapentin 300 mg TID at home. I will increase backt ousual HD Add Aleve BID which she has used at home - monitor BP on NSAIDs May need to reconsult pain management - they follow her as outpatient 08/04 - Pain controlled with Percocet. Last Dilaudid given 08/02 Starting PT. Believes she is taking seroquel as pain control adjunct. Dubious value and she has been sedated during the day so will d/c am dose and then pm dose stepwise. 08/03 Pain improved, she is currently on Toradol, Percocet and Dilaudid. Toradol DC as this could be adversely affecting her BP, cont with Percocet, Di laudid 0.3 mg q3h prn also available, last use 08/02 at 140 am 08/02 --pain continues. Gabapentin increased, Percocet added, Dilaudid stopped for excessive sedation. May need to reconsult pain 08/01 -- medication per pain managemen. Added a Lidoderm patch, may increase gabapentin if needed. PT ordered. call placed to pain management for consult. message left. Continuous oximetry due to intensity of pain regimen. 1 (5) UTI (urinary tract infection) Status: Acute Problem Text: 08/04 - s/p 5 days IV Rocephin for E. Coli + U/C 08/03 Culture + E coli, alonso sensitive, has received 4 days IV rocephin, will receive last dose today, then DC abx 08/02 abnormal UA. culture pending. treated empirically with Ceftriaxone. (6) Renal calculus Problem Text: non-obstructing renal calculus. patient notes her abdominal pain is consistent with prior kidney stone episodes. Taking Flomax. (7) Hypertension Status: Chronic Problem Text: 08/06 - as above (8) Hypothyroidism Status: Chronic Problem Text: stable TSH and T4 04/2019. (9) Diabetes mellitus Status: Chronic Problem Text: Restarted Metformin Plan/VTE VTE Prophylaxis Ordered?: Yes (Eliquis) Plan Therapy: PT Family Medicine Attending Note: I saw and examined Ms. Pollard, discussed with ANTOLIN Ward. Agree with her note as documented. She reports that the Percocet is working adequately for her pain. Jillian Hernandez of interventional pain management did come and see her as reaffirmed our current strategy. They will try to see her in 1-2 weeks in the office for a potential procedure, which the patient reports was very helpful in the past. I anticipate she'll be discharged home tomorrow. 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) Disposition safe per PT but patient feels she would benefit from one more day of PT today - Plan to d/c in am VS, I&O, 24H, Fishbone Vital Signs/I&O Vital Signs Date Time Temp Pulse Resp B/P (MAP) Pulse Ox O2 Delivery O2 Flow Rate FiO2 08/07/19 09:02 16 08/07/19 08:31 168/66 08/07/19 06:00 97.0 61 95 Nasal Cannula 0.5 I&O- Last 24 Hours up to 6 AM 08/07/19 06:00 Intake Total 2050 ml Output Total 500 ml Balance 1550 ml Laboratory Data 24H LABS Laboratory Tests 2 08/06/19 12:12: Total Creatine Kinase 38, Creatine Kinase MB 1.1, Creatine Kinase MB Relative Index 2.89, Troponin I 0.05 08/06/19 15:56: Total Creatine Kinase 34, Creatine Kinase MB < 1.0, Creatine Kinase MB Relative Index 2.94, Troponin I 0.06 Microbiology Microbiology 08/03/19 Urine Culture - Final, Complete 07/30/19 Urine Culture - Final, Complete Escherichia Coli CORIN COX PA-C Aug 07, 2019 10:27 am Jakub Burgess MD Aug 08, 2019 4:09 am
[2019-08-07 14:00] VITALS: BP 178/86
--- NOTE | 2019-08-07 16:08 | CR ---
DATE OF CONSULTATION: 08/07/2019 REFERRING PHYSICIAN: Dr. Jakub Burgess CHIEF COMPLAINT: Right low back pain. HISTORY OF PRESENT ILLNESS: Ynes is a 78-year-old female who was admitted to the hospital 1 week ago for intractable back pain. She was treated for a urinary tract infection and has progressively gotten better, although right low back pain persists. She is finding Percocet somewhat effective at reducing her pain, which allows her to participate with physical therapy. She would like to have another injection because she had such good results with the last injection for her left low back pain approximately 1 month ago at the pain center. We have followed Ynes for several years in regards to her chronic low back pain. Appears comfortable with conversation today, which is a big improvement space, which is a big improvement from my initial evaluation 1 week ago. She admits that she is able to do things with therapy that have been asked of her and that the pain medication is somewhat helpful. Currently receiving Percocet 5-325 two tablets every 8 hours as needed for severe pain episodes. Also, the patient reports that gabapentin 300 mg three times a day is helpful. REVIEW OF SYSTEMS: Denies chest pains or shortness of breath. Reporting normal bowel and bladder function. Neurologic: Denies dizziness. PHYSICAL EXAMINATION: Awake, alert, pleasant. Vital signs: Temperature 97.2, pulse 81, respiratory rate 20, blood pressure 178/86, oxygen saturation (O2) is 94%, room air. Cardiac: S1, S2 normal rate and rhythm. Lung sounds are clear. Respirations nonlabored. Musculoskeletal: Able to move legs freely. No swelling. Lumbosacral spine: Palpation reveals tenderness over the right sacroiliac region and right lumbar facet region. ASSESSMENT: 1. Chronic low back pain. 2. Lumbosacral spinal stenosis. PLAN: I would recommend she be discharged with Percocet 1-2 tablets every 8 hours as needed with maximum daily dose of six. Discharge also with gabapentin 300 mg three times a day. Our office will be contacting her for a followup appointment at the pain center in 1-2 weeks. At that time, will consider injection therapy. Thank you for allowing us to participate in the care of your patient. If you have any questions or concerns, please do not hesitate to contact me. Sincerely, Jillian Hernandez, Family Nurse Practitioner [facility]
[2019-08-07] MEDS ORDERED: MAGNESIUM OXIDE 400 MG TAB (MAG-OX) PO ONE (17:00)
[2019-08-07] MEDS: **NOTE PATIENT COMMENT** MISC XX SCH (19:40)
[2019-08-07 22:00] VITALS: BP 158/70
[2019-08-08 06:00] VITALS: BP 180/78
[2019-08-08] MEDS: LEVOTHYROXINE 112MCG TABLET (0.112MG) PO SCH (06:06)
[2019-08-08] MEDS: BACLOFEN 5MG PER 1/2 TABLET PO SCH ×2 (06:06→12:34)
[2019-08-08] MEDS: GABAPENTIN 100 MG CAP PO SCH ×2 (06:07→14:32)
[2019-08-08] MEDS: SLF 3 ML SYR IV SCH ×2 (06:07→14:00)
[2019-08-08] MEDS: APIXABAN 5 MG TAB (ELIQUIS) PO SCH (06:07)
[2019-08-08] MEDS: METOPROLOL TART 50 MG TAB PO SCH (06:07)
[2019-08-08] MEDS: PERCOCET 5MG/325MG TAB PO PRN ×2 (06:33→10:37)
[2019-08-08 06:37] LABS: HEMATOCRIT 30.3 % (36.0-47.0); HEMOGLOBIN 9.4 g/dl (12.0-15.5); MEAN CORPUSCULAR HEMOGLOBIN 29.3 pg (27.0-33.0); MEAN CORPUSCULAR VOLUME 94.4 fl (80.0-96.0); PLATELET COUNT, AUTOMATED 263 10^3/uL (150-450); RED BLOOD COUNT 3.21 10^6/uL (4.00-5.40); WHITE BLOOD COUNT 7.4 10^3/uL (4.0-10.0)
[2019-08-08 06:56] LABS: BLOOD UREA NITROGEN 15 MG/DL (7-18); CALCIUM LEVEL 8.3 MG/DL (8.8-10.2); CARBON DIOXIDE LEVEL 26 MEQ/L (21-32); CHLORIDE LEVEL 103 MEQ/L (98-107); CREATININE FOR GFR 0.78 MG/DL (0.55-1.30); GLOMERULAR FILTRATION RATE > 60.0 (>39); GLUCOSE, FASTING 134 MG/DL (70-100); MAGNESIUM LEVEL 1.5 MG/DL (1.8-2.4); POTASSIUM SERUM 3.7 MEQ/L (3.5-5.1); SODIUM LEVEL 138 MEQ/L (136-145)
[2019-08-08] MEDS ORDERED: MAG SULF 1GM/100ML (MAG RUN) 1 GM in IV 1 EA IV ONE (08:00)
[2019-08-08 09:00] VITALS: O2SAT 92
[2019-08-08] MEDS ORDERED: MAGNESIUM OXIDE 400 MG TAB (MAG-OX) PO SCH (09:00)
[2019-08-08] MEDS ORDERED: lisinopriL 20 MG TAB PO SCH (09:00)
[2019-08-08 09:23] VITALS: BP 180/78
[2019-08-08] MEDS: FLECAINIDE 50MG TABLET PO SCH (09:23)
[2019-08-08] MEDS: TAMSULOSIN 0.4 MG CAP PO SCH (09:23)
[2019-08-08] MEDS: metFORMIN (GLUCOPHAGE) 500 MG TAB PO SCH (09:23)
[2019-08-08] MEDS: ISOSORBIDE MON. (IMDUR) 30 MG XR TAB PO SCH (09:23)
[2019-08-08] MEDS: ASPIRIN 81 MG ENTERIC TAB PO SCH (09:23)
[2019-08-08] MEDS: CitaloPRAM (CeleXA) 10 MG TABLET PO SCH (09:23)
[2019-08-08] MEDS: LIDOCAINE 5% (LIDODERM) PATCH TD SCH (09:24)
[2019-08-08] MEDS ORDERED: PERCOCET PO (12:22)
[2019-08-08] MEDS ORDERED: GABA300S PO (12:22)
[2019-08-08] MEDS ORDERED: LISI-538 PO (12:22)
--- NOTE | 2019-08-08 14:11 | DSES ---
DATE OF ADMISSION: 07/30/2019 DATE OF DISCHARGE: PRINCIPAL DIAGNOSIS: Hypertensive urgency. SECONDARY DIAGNOSES: 1. Intractable low back pain. 2. Escherichia (E.) coli urinary tract infection. 3. Obstructive renal calculus. 4. Hypertensive heart disease. 5. Hypothyroidism. 6. Type 2 diabetes. 7. Atelectasis secondary to hypoventilation. 8. Noncardiac chest pain. PRIMARY CARE PROVIDER: Jakub Burgess MD HISTORY: The patient was admitted with low back pain, found to have elevated blood pressure. She has chronic back pain. Goes to the pain clinic for this. Has had MRIs done. Showed multilevel spondylitic changes with progression from previous. She was admitted for further treatment. HOSPITAL COURSE: The patient admitted to a progressive care unit (PCU) bed. She was treated. Her blood pressure was treated. She was given analgesics. She was seen by Jillian Hernandez from the pain clinic. She had reached pain control, that she thinks she can go home today. Her blood pressure came under good control. Is still mildly elevated today, but she is having some back pain. Further titration can be done as an outpatient. She had an E. coli urinary tract infection (UTI), and she was treated with Rocephin for 5 days, then it was discontinued. It was a pansensitive E. Coli. She had chest wall pain. Her enzymes were negative. Electrocardiogram (EKG) showed no ischemic changes. She had atelectasis on a chest x-ray. It responded to incentive spirometry and supplemental oxygen for awhile and then weaned that off. SIGNIFICANT LABORATORIES: Today, white count is 7.4, hemoglobin 9.4, platelets 263. Sodium 138, potassium 3.7, BUN 15, creatinine 0.7, glucose 134. Blood sugars have been less than 150 when last checked. DISPOSITION: The patient is discharged home, improved, in stable condition. She will followup with Dr. Burgess in a week. Activity as tolerated. [id number], consistent-carbohydrate diet. MEDICATIONS: Will continue to be Eliquis 5 mg twice a day, aspirin 81 mg daily, citalopram 10 mg daily, and flecainide 50 mg twice a day, isosorbide monohydrate 30 mg, levothyroxine 112 mcg daily, lisinopril 20 mg daily, metformin 500 mg twice a day, metoprolol tartrate 50 mg twice a day, Seroquel 50 mg twice a day. She is on gabapentin 300 mg three times a day every 8 hours. We provided a 10-day supply of this. She was sent home on oxycodone 5/325 one capsule every 4 hours as needed for pain, maximum daily dose six, and she was sent home with 5 days' worth or thirty of the capsules with appropriate precautions reviewed. At the time of this dictation, no pending laboratories.
== END 2019-08-08 14:42 | disposition home or self-care (01) | DRG 552 ==
LOC: M ED 12:12 → M ED INP 17:25 → M PCU 20:04 → M MSPAV 08-04 14:15
PROVIDERS: ADMIT Internal Medicine; ATTEND Family Medicine
DX: M48.061 Spinal stenosis, lumbar region without neurogenic claudication (principal); I48.20 Chronic atrial fibrillation, unspecified; I69.351 Hemiplegia and hemiparesis following cerebral infarction affecting right dominant side; N39.0 Urinary tract infection, site not specified; J98.11 Atelectasis; I48.92 Unspecified atrial flutter; I10 Essential (primary) hypertension; R25.1 Tremor, unspecified; R07.89 Other chest pain; E03.9 Hypothyroidism, unspecified; I16.0 Hypertensive urgency; B96.20 Unspecified Escherichia coli [E. coli] as the cause of diseases classified elsewhere; E78.5 Hyperlipidemia, unspecified; E11.9 Type 2 diabetes mellitus without complications; N20.0 Calculus of kidney; Z79.01 Long term (current) use of anticoagulants; Z79.899 Other long term (current) drug therapy; Z79.84 Long term (current) use of oral hypoglycemic drugs; Z88.2 Allergy status to sulfonamides; Z90.49 Acquired absence of other specified parts of digestive tract

== ENCOUNTER → 2019-08-20 | Outpatient (CLI) | payer MEDICARE ==
[~2019-08-20] MED LIST changes: +FLEC25TA PO; +GABA300S PO; +LISI-538 PO; +METO50TA7 PO
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
== END ==
LOC: M PAIN 10:15
PROVIDERS: ATTEND Nurse Practitioner Family
DX: M51.16 Intervertebral disc disorders with radiculopathy, lumbar region (principal); G89.29 Other chronic pain; E11.9 Type 2 diabetes mellitus without complications; Z86.73 Personal history of transient ischemic attack (TIA), and cerebral infarction without residual deficits; I10 Essential (primary) hypertension; E03.9 Hypothyroidism, unspecified; Z88.2 Allergy status to sulfonamides; Z88.8 Allergy status to other drugs, medicaments and biological substances; Z79.82 Long term (current) use of aspirin; Z79.01 Long term (current) use of anticoagulants; Z79.84 Long term (current) use of oral hypoglycemic drugs; Z79.899 Other long term (current) drug therapy

== ENCOUNTER → 2019-08-28 | Outpatient (REF) | payer MEDICARE ==
[2019-08-28 17:43] LABS: ALBUMIN 3.8 GM/DL (3.2-5.2); ALT/SGPT 21 U/L (12-78); BILIRUBIN,TOTAL 0.3 MG/DL (0.2-1.0); BLOOD UREA NITROGEN 11 MG/DL (7-18); CALCIUM LEVEL 8.6 MG/DL (8.8-10.2); CARBON DIOXIDE LEVEL 29 MEQ/L (21-32); CHLORIDE LEVEL 106 MEQ/L (98-107); CHOLESTEROL LEVEL 188 MG/DL (<200); CHOLESTEROL RISK RATIO 2.937 (<5); GLOMERULAR FILTRATION RATE > 60.0 (>39); GLUCOSE, FASTING 115 MG/DL (70-100); HDL CHOLESTEROL 64 MG/DL (>40); LDL CHOLESTEROL 91 MG/DL (<100); NON-HDL-C 124 MG/DL; POTASSIUM SERUM 3.9 MEQ/L (3.5-5.1); SODIUM LEVEL 140 MEQ/L (136-145); TOTAL PROTEIN 7.4 GM/DL (6.4-8.2); TRIGLYCERIDES LEVEL 163 MG/DL (<150)
[2019-08-28 17:50] LABS: HEMOGLOBIN A1c 7.4 %
[2019-08-28 18:12] LABS: MALB URINE SIEMENS 36.1 MG/L; MAU/CREAT RATIO 19.7 MCG/MG (0.0-30.0)
== END ==
LOC: M SFHCPLAZ 15:25
PROVIDERS: ATTEND Family Medicine
DX: I50.32 Chronic diastolic (congestive) heart failure (principal); E11.8 Type 2 diabetes mellitus with unspecified complications; I65.09 Occlusion and stenosis of unspecified vertebral artery; E03.9 Hypothyroidism, unspecified

== ENCOUNTER 2019-09-09 14:06 | Emergency (ER) | payer MEDICARE ==
[~2019-09-09] VITALS: Ht 157.5 cm; Wt 74.8 kg
[2019-09-09] MEDS ORDERED: CARI1TAB7 PO (14:24)
[2019-09-09] MEDS ORDERED: MYSO50TA5 PO (14:24)
[2019-09-09] MEDS ORDERED: LISI-542 PO (14:24)
[2019-09-09] MEDS ORDERED: NAPR220C14 PO (14:24)
[2019-09-09] MEDS ORDERED: LIDO5DIS41 TOP (14:24)
[2019-09-09] MEDS ORDERED: NS 1,000 ML IV ONE (17:15)
[2019-09-09] MEDS ORDERED: MORPHINE 4 MG/ML 1ML VIAL/SYRINGE (J2270) IV ONE (17:15)
[2019-09-09 17:21] LABS: BASO % 0.6 % (0.0-1.0); EOS # 0.2 10^3/uL (0.0-0.5); EOS % 2.5 % (0.0-3.0); HEMOGLOBIN 10.3 g/dl (12.0-15.5); LYMPH # 4.4 10^3/uL (1.5-5.0); LYMPH % 60.6 % (24.0-44.0); MEAN CORPUSCULAR HEMOGLOBIN 28.5 pg (27.0-33.0); MEAN CORPUSCULAR HGB CONC 30.3 g/dl (32.0-36.5); MEAN CORPUSCULAR VOLUME 94.2 fl (80.0-96.0); MONO # 0.7 10^3/uL (0.0-0.8); MONO % 10.1 % (0.0-5.0); NEUTROPHILS # 1.9 10^3/uL (1.5-8.5); NEUTROPHILS % 26.1 % (36.0-66.0); PLATELET COUNT, AUTOMATED 213 10^3/uL (150-450); RED BLOOD COUNT 3.61 10^6/uL (4.00-5.40); WHITE BLOOD COUNT 7.2 10^3/uL (4.0-10.0)
[2019-09-09 17:39] LABS: ALBUMIN 4.1 GM/DL (3.2-5.2); BILIRUBIN,DIRECT 0.1 MG/DL (0.0-0.2); BILIRUBIN,TOTAL 0.4 MG/DL (0.2-1.0); CALCIUM LEVEL 8.5 MG/DL (8.8-10.2); CREATININE FOR GFR 1.06 MG/DL (0.55-1.30); GLOMERULAR FILTRATION RATE 53.2 (>39); POTASSIUM SERUM 4.4 MEQ/L (3.5-5.1)
--- NOTE | 2019-09-09 18:28 | REPVR ---
PROCEDURE INFORMATION: Exam: CT Lumbar Spine Without Contrast Exam date and time: 09/09/2019 5:52 PM Age: 79 years old Clinical indication: Low back pain and sciatica; Right; Additional info: R sciatica, R flank pain TECHNIQUE: Imaging protocol: Computed tomography images of the lumbar spine without contrast. Radiation optimization: All CT scans at this facility use at least one of these dose optimization techniques: automated exposure control; mA and/or kV adjustment per patient size (includes targeted exams where dose is matched to clinical indication); or iterative reconstruction. COMPARISON: MRI-Spine, L.S. without con 07/30/2019 7:25 PM FINDINGS: Vertebrae: Stable appearance of anterior wedge compression deformity of L1. Discs/Spinal canal/Neural foramina: Moderate to severe central spinal stenosis at L3-L4, progressed in comparison to the prior study. Severe central spinal stenosis L4-L5 progressed in comparison to the prior study. Severe central spinal stenosis L5-S1 stable in comparison to the prior study. Left paracentral and foraminal hard disc protrusion at L2-L3 resulting in marked stenosis of the ipsilateral neural foramen. Sacrum/coccyx: Lumbarized 1st sacral segment. Kidneys and ureters: Punctate nonobstructive calculi right kidney. Soft tissues: Atherosclerotic changes in the aorta and iliac arteries. Unremarkable. IMPRESSION: 1. Multilevel foraminal stenoses, moderate to severe at L3-L4, severe at L4-L5 and severe at L5-S1. Stenosis have progressed at L3-L4 and L4-L5 an apparent to the prior study. 2. Stable left paracentral and foraminal hard disc protrusion it at L2-L3. It in 3. Lumbarization 1st sacral segment. Electronically signed by: Monroe Rooney On 09/09/2019 18:27:50 PM
--- NOTE | 2019-09-09 18:37 | REPVR ---
PROCEDURE INFORMATION: Exam: CT Abdomen And Pelvis Without Contrast Exam date and time: 09/09/2019 5:52 PM Age: 79 years old Clinical indication: Abdominal pain; Additional info: R sciatica, R flank pain TECHNIQUE: Imaging protocol: Computed tomography of the abdomen and pelvis without contrast. Radiation optimization: All CT scans at this facility use at least one of these dose optimization techniques: automated exposure control; mA and/or kV adjustment per patient size (includes targeted exams where dose is matched to clinical indication); or iterative reconstruction. COMPARISON: CT ABD PELVIS W/O CONTRAST 07/30/2019 1:17 PM FINDINGS: Liver: Examination of the liver demonstrates a mildly lobular surface contour, and enlargement of the left lobe, findings which may be consistent with cirrhosis in the appropriate clinical setting. Clinical correlation suggested. There is a diffuse decrease in hepatic parenchymal density, consistent with fatty infiltration. Gallbladder and bile ducts: Normal. No calcified stones. No ductal dilation. Pancreas: There is diffuse pancreatic atrophy and fatty replacement. Spleen: Normal. No splenomegaly. Adrenals: Normal. No mass. Kidneys and ureters: Multiple nonobstructive renal calculi on the right. Stomach and bowel: Unremarkable. No obstruction. No mucosal thickening. Appendix: No evidence of appendicitis. Intraperitoneal space: Unremarkable. No free air. No significant fluid collection. Vasculature: Unremarkable. No abdominal aortic aneurysm. Lymph nodes: Unremarkable. No enlarged lymph nodes. Bladder: Unremarkable as visualized. Reproductive: There has been a hysterectomy. Bones/joints: Spinal stenosis from L3-L4 to L5-S1. Please refer to accompanying lumbar spine CT report for details. Status post ORIF left hip. Soft tissues: Left inguinal hernia. No incarceration. IMPRESSION: 1. Left inguinal hernia. No incarceration. 2. Examination of the liver demonstrates a mildly lobular surface contour, and enlargement of the left lobe, findings which may be consistent with cirrhosis in the appropriate clinical setting. Clinical correlation suggested. 3. There is a diffuse decrease in hepatic parenchymal density, consistent with fatty infiltration. 4. There is diffuse pancreatic atrophy and fatty replacement. 5. Multiple nonobstructive renal calculi on the right. 6. There has been a hysterectomy. Electronically signed by: Monroe Rooney On 09/09/2019 18:36:41 PM
[2019-09-09] MEDS ORDERED: ONDANSETRON 4MG/2ML VIAL (J2405) IV ONE (18:45)
[2019-09-09] MEDS ORDERED: NORC1TAB7 PO (19:19)
[2019-09-09] MEDS ORDERED: PERCOCET 5MG/325MG TAB PO ONE (19:30)
[2019-09-09 19:43] VITALS: BP 164/87
--- NOTE | 2019-09-12 09:30 | ED PDOC ---
Post-Departure Follow-Up dr aldridge faxed formal report of ct abd/p/ls spie for fu Justice Enciso MD Sep 12, 2019 09:30
== END 2019-09-09 19:54 | disposition home or self-care (01) ==
LOC: M ED 14:06
DX: I10 Essential (primary) hypertension (principal); G89.29 Other chronic pain; M54.5 Low back pain; E11.42 Type 2 diabetes mellitus with diabetic polyneuropathy; I48.91 Unspecified atrial fibrillation; Z79.899 Other long term (current) drug therapy; Z79.890 Hormone replacement therapy; Z79.84 Long term (current) use of oral hypoglycemic drugs; Z79.01 Long term (current) use of anticoagulants; Z88.1 Allergy status to other antibiotic agents; Z88.2 Allergy status to sulfonamides; Z87.891 Personal history of nicotine dependence
CPT/HCPCS: 72131; 74176; 80048; 80076; 81001; 83690; 85025; 87086; 96374; 96375; 99284; J2270; J2405

== ENCOUNTER 2019-09-11 12:46 | Emergency (ER) | payer MEDICARE ==
[~2019-09-11] VITALS: Ht 157.5 cm; Wt 74.0 kg
[~2019-09-11 12:46] MED LIST changes: +LIDO5DIS41 TOP; +NAPR220C14 PO; +NORC1TAB7 PO
[2019-09-11] MEDS ORDERED: HYDR-3713 (13:00)
[2019-09-11] MEDS ORDERED: MORPHINE 2 MG/ML 1ML VIAL (J2270) IV ONE (13:45)
[2019-09-11] MEDS ORDERED: MORPHINE 4 MG/ML 1ML VIAL/SYRINGE (J2270) IV ONE (14:15)
[2019-09-11 14:22] LABS: BASO % 0.3 % (0.0-1.0); EOS # 0.2 10^3/uL (0.0-0.5); EOS % 2.6 % (0.0-3.0); HEMATOCRIT 34.8 % (36.0-47.0); HEMOGLOBIN 10.5 g/dl (12.0-15.5); LYMPH # 3.5 10^3/uL (1.5-5.0); LYMPH % 56.5 % (24.0-44.0); MEAN CORPUSCULAR HEMOGLOBIN 28.4 pg (27.0-33.0); MEAN CORPUSCULAR HGB CONC 30.2 g/dl (32.0-36.5); MEAN CORPUSCULAR VOLUME 94.1 fl (80.0-96.0); MONO # 0.7 10^3/uL (0.0-0.8); MONO % 10.6 % (0.0-5.0); NEUTROPHILS # 1.9 10^3/uL (1.5-8.5); NEUTROPHILS % 29.8 % (36.0-66.0); PLATELET COUNT, AUTOMATED 200 10^3/uL (150-450); WHITE BLOOD COUNT 6.2 10^3/uL (4.0-10.0)
[2019-09-11 14:54] LABS: ALT/SGPT 19 U/L (12-78); BILIRUBIN,DIRECT 0.1 MG/DL (0.0-0.2); BILIRUBIN,TOTAL 0.5 MG/DL (0.2-1.0); C REACTIVE PROTEIN QUANTITATIV < 0.30 MG/DL (0.00-0.30); LIPASE 62 U/L (73-393); TOTAL PROTEIN 7.7 GM/DL (6.4-8.2)
[2019-09-11 15:29] LABS: ERYTHROCYTE SEDIMENTATION RATE 21 mm/hr (0-30)
[2019-09-11 15:45] VITALS: BP 169/74
--- NOTE | 2019-09-11 22:03 | ECGEPIP ---
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
== END 2019-09-11 15:50 | disposition home or self-care (01) ==
LOC: M ED 12:46
DX: G89.29 Other chronic pain (principal); M54.5 Low back pain; R10.9 Unspecified abdominal pain; R11.0 Nausea; E11.42 Type 2 diabetes mellitus with diabetic polyneuropathy; I10 Essential (primary) hypertension; I48.91 Unspecified atrial fibrillation; E03.9 Hypothyroidism, unspecified; F41.9 Anxiety disorder, unspecified; Z79.899 Other long term (current) drug therapy; Z79.890 Hormone replacement therapy; Z79.84 Long term (current) use of oral hypoglycemic drugs; Z79.01 Long term (current) use of anticoagulants; Z88.1 Allergy status to other antibiotic agents; Z88.2 Allergy status to sulfonamides
CPT/HCPCS: 80047; 80076; 83605; 83690; 85025; 85652; 86140; 87040; 93005; 93041; 94760; 96374; 99284; J2270

== ENCOUNTER → 2019-09-18 | Outpatient (REF) | payer MEDICARE ==
[~2019-09-18] MED LIST changes: +HYDR-3713
== END ==
LOC: M SFHCPLAZ 15:20
PROVIDERS: ATTEND Family Medicine
DX: R93.2 Abnormal findings on diagnostic imaging of liver and biliary tract (principal); Z53.8 Procedure and treatment not carried out for other reasons

== ENCOUNTER → 2019-09-18 | Outpatient (CLI) | payer MEDICARE ==
[2019-09-18 18:25] LABS: ALBUMIN 4.2 GM/DL (3.2-5.2); ALT/SGPT 19 U/L (12-78); BILIRUBIN,DIRECT 0.1 MG/DL (0.0-0.2); BILIRUBIN,TOTAL 0.4 MG/DL (0.2-1.0); TOTAL PROTEIN 7.7 GM/DL (6.4-8.2)
[2019-09-18 18:42] LABS: HEPATITIS B SURFACE ANTIGEN NEGATIVE (NEGATIVE)
[2019-09-21 11:14] LABS: HEPATITIS B CORE ANTIBODY IGM NEGATIVE (NEGATIVE); HEPATITIS C VIRUS ABY INDEX 0.1 INDEX (<0.8)
[2019-09-21 11:16] LABS: HEPATITIS A ANTIBODY IGM NEGATIVE (NEGATIVE)
== END ==
LOC: M PLALAB 15:43
PROVIDERS: ATTEND Family Medicine
DX: R93.2 Abnormal findings on diagnostic imaging of liver and biliary tract (principal)

== ENCOUNTER → 2019-09-24 | Outpatient (CLI) | payer MEDICARE ==
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
== END ==
LOC: M PAIN 11:00
PROVIDERS: ATTEND Nurse Practitioner Family
DX: M48.062 Spinal stenosis, lumbar region with neurogenic claudication (principal)

== ENCOUNTER → 2019-10-14 | Outpatient (CLI) | payer MEDICARE ==
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
== END ==
LOC: M PAIN 09:45
PROVIDERS: ATTEND Nurse Practitioner Family
DX: M48.062 Spinal stenosis, lumbar region with neurogenic claudication (principal)

== ENCOUNTER → 2019-10-22 | Outpatient (CLI) | payer MEDICARE ==
--- NOTE | 2019-10-22 10:20 | REP ---
QUADRANT SONOGRAPHY: HISTORY: Abnormal findings on imaging of the liver. Comparison CT study September 09, 2019. FINDINGS: There is poor insonation of the liver consistent with fatty infiltration. It demonstrates diffuse increased echogenicity as well. Coarse echotexture. Limited penetration. No focal hepatic mass lesion is seen. Limited views of the pancreas show no abnormality. There is no evidence of ascites. Right renal dimensions are 11.3 x 5.0 x 3.8 cm. No hydronephrosis is seen. Gallbladder is normal in size with a smooth thin wall and no stone or polyp. Common bile duct is normal measuring 0.6 cm in greatest diameter. IMPRESSION: Findings consistent with fatty infiltration of the liver. Poor insonation of the liver. Otherwise negative. Electronically Signed by Vj Clark MD 10/22/2019 12:08 P
== END ==
LOC: M RAD 08:51
PROVIDERS: ATTEND Family Medicine
DX: K76.0 Fatty (change of) liver, not elsewhere classified (principal)

== ENCOUNTER → 2019-11-19 | Outpatient (CLI) | payer MEDICARE ==
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
== END ==
LOC: M PAIN 11:00
PROVIDERS: ATTEND Anesthesiology
DX: M48.061 Spinal stenosis, lumbar region without neurogenic claudication (principal); G89.29 Other chronic pain; E11.9 Type 2 diabetes mellitus without complications; Z86.73 Personal history of transient ischemic attack (TIA), and cerebral infarction without residual deficits; I10 Essential (primary) hypertension; E03.9 Hypothyroidism, unspecified; Z88.2 Allergy status to sulfonamides; Z88.8 Allergy status to other drugs, medicaments and biological substances; Z79.01 Long term (current) use of anticoagulants; Z79.84 Long term (current) use of oral hypoglycemic drugs; Z79.899 Other long term (current) drug therapy

== ENCOUNTER → 2019-11-26 | Outpatient (CLI) | payer MEDICARE ==
[~2019-11-26] MED LIST changes: +BUPIVACAINE HCL 0.25% 10ML VIAL As Ordered ONE; +BUPIVACAINE HCL 0.25% 30ML VIAL As Ordered ONE; +ONDANSETRON 4 MG ORAL DISINTEGRATING TAB As Ordered ONE; +oxyCODONE 5MG TAB As Ordered ONE
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
== END ==
LOC: M PAIN 12:30
PROVIDERS: ATTEND Anesthesiology
DX: M79.18 Myalgia, other site (principal); M48.062 Spinal stenosis, lumbar region with neurogenic claudication; M51.16 Intervertebral disc disorders with radiculopathy, lumbar region; M51.17 Intervertebral disc disorders with radiculopathy, lumbosacral region; E11.9 Type 2 diabetes mellitus without complications; I10 Essential (primary) hypertension; Z79.899 Other long term (current) drug therapy; Z88.2 Allergy status to sulfonamides; Z88.8 Allergy status to other drugs, medicaments and biological substances
CPT/HCPCS: 20552; Q0162

== ENCOUNTER → 2019-11-28 | Outpatient (CLI) | payer MEDICARE ==
[~2019-11-28] MED LIST changes: -BUPIVACAINE HCL 0.25% 10ML VIAL As Ordered ONE; -BUPIVACAINE HCL 0.25% 30ML VIAL As Ordered ONE; -ONDANSETRON 4 MG ORAL DISINTEGRATING TAB As Ordered ONE; -oxyCODONE 5MG TAB As Ordered ONE
== END ==
LOC: M LABSMTC 13:32
PROVIDERS: ATTEND Anesthesiology
DX: Z11.59 Encounter for screening for other viral diseases (principal); Z20.828 Contact with and (suspected) exposure to other viral communicable diseases

== ENCOUNTER → 2019-11-30 | Outpatient (CLI) | payer MEDICARE ==
[~2019-11-30] MED LIST changes: +ISOVUE-M 300 61% 15ML VIAL As Ordered ONE; +LIDOCAINE 1% SDV 30ML VIAL As Ordered ONE; +dexameTHASONE 10MG/1ML VIAL PRES.FREE (J1100 PER 1MG) As Ordered ONE; +diazePAM 2 MG TAB As Ordered ONE; +oxyCODONE 5MG TAB As Ordered ONE
--- NOTE | 2019-11-30 15:17 | REP ---
Partial lumbar spine series: Two views . History: Injection procedure for pain. 16 seconds of fluoroscopy time is reported. Findings: A sequence of two fluoroscopically obtained last image hold procedural spot radiographs of the lumbar spine document needle position and contrast injection associated with injection procedure. Electronically Signed by Vj Clark MD 11/30/2019 03:09 P
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
== END ==
LOC: M PAIN 12:30
PROVIDERS: ATTEND Anesthesiology
DX: M51.16 Intervertebral disc disorders with radiculopathy, lumbar region (principal); M51.17 Intervertebral disc disorders with radiculopathy, lumbosacral region; M48.062 Spinal stenosis, lumbar region with neurogenic claudication; G89.29 Other chronic pain; E11.9 Type 2 diabetes mellitus without complications; I10 Essential (primary) hypertension; Z86.73 Personal history of transient ischemic attack (TIA), and cerebral infarction without residual deficits; E03.9 Hypothyroidism, unspecified; Z88.2 Allergy status to sulfonamides; Z88.8 Allergy status to other drugs, medicaments and biological substances; Z79.01 Long term (current) use of anticoagulants; Z79.84 Long term (current) use of oral hypoglycemic drugs; Z79.899 Other long term (current) drug therapy
CPT/HCPCS: 62323; J1100; Q9967

== ENCOUNTER → 2019-12-11 | Outpatient (CLI) | payer MEDICARE ==
[~2019-12-11] MED LIST changes: -ISOVUE-M 300 61% 15ML VIAL As Ordered ONE; -LIDOCAINE 1% SDV 30ML VIAL As Ordered ONE; -dexameTHASONE 10MG/1ML VIAL PRES.FREE (J1100 PER 1MG) As Ordered ONE; -diazePAM 2 MG TAB As Ordered ONE; -oxyCODONE 5MG TAB As Ordered ONE
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
== END ==
LOC: M PAIN 09:45
PROVIDERS: ATTEND Nurse Practitioner Family
DX: M48.062 Spinal stenosis, lumbar region with neurogenic claudication (principal); E11.9 Type 2 diabetes mellitus without complications; Z79.891 Long term (current) use of opiate analgesic; Z79.899 Other long term (current) drug therapy; Z88.2 Allergy status to sulfonamides; Z88.8 Allergy status to other drugs, medicaments and biological substances

== ENCOUNTER → 2019-12-27 | Outpatient (CLI) | payer MEDICARE | LOC: M LABSMTC 09:47 | PROVIDERS: ATTEND Anesthesiology | DX: Z11.59 Encounter for screening for other viral diseases (principal) ==

== ENCOUNTER → 2019-12-30 | Outpatient (CLI) | payer MEDICARE ==
[~2019-12-30] MED LIST changes: +BUPIVACAINE HCL 0.25% 30ML VIAL As Ordered ONE; +ISOVUE-M 300 61% 15ML VIAL As Ordered ONE; +LIDOCAINE 1% SDV 30ML VIAL As Ordered ONE; +dexameTHASONE 10MG/1ML VIAL PRES.FREE (J1100 PER 1MG) As Ordered ONE; +diazePAM 2 MG TAB As Ordered ONE; +oxyCODONE 5MG TAB As Ordered ONE
--- NOTE | 2019-12-30 14:30 | REP ---
[place] VIEWS LUMBAR SPINE: CLINICAL: Pain. Four C-arm views of the lumbar spine performed during epidural injection by Dr. Badrales. A needle is seen along the lumbar spine. 55 seconds of fluoroscopy time utilized. Electronically Signed by James Funez MD 12/30/2019 02:45 P
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
== END ==
LOC: M PAIN 12:15
PROVIDERS: ATTEND Anesthesiology
DX: M51.16 Intervertebral disc disorders with radiculopathy, lumbar region (principal)
CPT/HCPCS: 64483; J1100; Q9967

== ENCOUNTER → 2020-01-06 | Outpatient (CLI) | payer MEDICARE ==
[~2020-01-06] MED LIST changes: -BUPIVACAINE HCL 0.25% 30ML VIAL As Ordered ONE; -ISOVUE-M 300 61% 15ML VIAL As Ordered ONE; -LIDOCAINE 1% SDV 30ML VIAL As Ordered ONE; -dexameTHASONE 10MG/1ML VIAL PRES.FREE (J1100 PER 1MG) As Ordered ONE; -diazePAM 2 MG TAB As Ordered ONE; -oxyCODONE 5MG TAB As Ordered ONE
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
== END ==
LOC: M PAIN 14:15
PROVIDERS: ATTEND Anesthesiology
DX: M51.16 Intervertebral disc disorders with radiculopathy, lumbar region (principal); M48.062 Spinal stenosis, lumbar region with neurogenic claudication

== ENCOUNTER → 2020-01-17 | Outpatient (CLI) | payer MEDICARE ==
[~2020-01-17] MED LIST changes: +HYDR2TAB2 PO; +POTA1TAB23 PO; +SYNT100T PO; +TIZA2TAB6 PO
== END ==
LOC: M LABSMTC 10:23
PROVIDERS: ATTEND Anesthesiology
DX: Z01.818 Encounter for other preprocedural examination (principal); Z11.59 Encounter for screening for other viral diseases
CPT/HCPCS: C9803; U0003

== ENCOUNTER → 2020-01-20 | Outpatient (CLI) | payer MEDICARE ==
[~2020-01-20] MED LIST changes: +BUPIVACAINE HCL 0.25% 30ML VIAL As Ordered ONE; +ISOVUE-M 300 61% 15ML VIAL As Ordered ONE; +LIDOCAINE 1% SDV 30ML VIAL As Ordered ONE; +dexameTHASONE 10MG/1ML VIAL PRES.FREE (J1100 PER 1MG) As Ordered ONE; +diazePAM 2 MG TAB As Ordered ONE; +oxyCODONE 5MG TAB As Ordered ONE
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
== END ==
LOC: M PAIN 12:15
PROVIDERS: ATTEND Anesthesiology
DX: M51.16 Intervertebral disc disorders with radiculopathy, lumbar region (principal)
CPT/HCPCS: 64483; 64484; J1100; Q9967

== ENCOUNTER 2020-01-23 01:47 | Inpatient (IN) | payer MEDICARE ==
[2020-01-23] VITALS (16 sets, daily range): BP systolic 68–162; BP diastolic 55–72
[~2020-01-23] VITALS: Ht 157.5 cm; Wt 68.0 kg
[~2020-01-23 01:47] MED LIST changes: -BUPIVACAINE HCL 0.25% 30ML VIAL As Ordered ONE; -HYDR2TAB2 PO; -ISOVUE-M 300 61% 15ML VIAL As Ordered ONE; -LIDOCAINE 1% SDV 30ML VIAL As Ordered ONE; -POTA1TAB23 PO; -SYNT100T PO; -TIZA2TAB6 PO; -dexameTHASONE 10MG/1ML VIAL PRES.FREE (J1100 PER 1MG) As Ordered ONE; -diazePAM 2 MG TAB As Ordered ONE; -oxyCODONE 5MG TAB As Ordered ONE
[2020-01-23] MEDS ORDERED: ACETAMINOPHEN TAB 650MG DOSE (2X325MG) PO ONE (02:15)
[2020-01-23 02:25] LABS: BASO % 0.2 % (0.0-1.0); EOS % 0.2 % (0.0-3.0); LYMPH # 2.1 10^3/uL (1.5-5.0); LYMPH % 40.9 % (24.0-44.0); MEAN CORPUSCULAR HEMOGLOBIN 30.5 pg (27.0-33.0); MEAN CORPUSCULAR HGB CONC 33.8 g/dl (32.0-36.5); MEAN CORPUSCULAR VOLUME 90.4 fl (80.0-96.0); MONO # 0.6 10^3/uL (0.0-0.8); MONO % 10.7 % (0.0-5.0); NEUTROPHILS # 2.4 10^3/uL (1.5-8.5); NEUTROPHILS % 46.4 % (36.0-66.0); RED BLOOD COUNT 1.77 10^6/uL (4.00-5.40); WHITE BLOOD COUNT 5.1 10^3/uL (4.0-10.0)
[2020-01-23] MEDS ORDERED: POTA1TAB23 PO (02:36)
[2020-01-23] MEDS ORDERED: HYDR2TAB2 PO (02:36)
[2020-01-23 02:37] LABS: INR 1.25; PROTHROMBIN TIME 15.4 SECONDS (11.8-14.0)
[2020-01-23 02:39] LABS: ALBUMIN 3.5 GM/DL (3.2-5.2); BILIRUBIN,DIRECT 0.2 MG/DL (0.0-0.2); BILIRUBIN,TOTAL 0.7 MG/DL (0.2-1.0)
[2020-01-23 02:47] LABS: HEMOGLOBIN 5.4 g/dl (12.0-15.5)
[2020-01-23 02:48] LABS: PLATELET COUNT, AUTOMATED 40 10^3/uL (150-450)
[2020-01-23] MEDS ORDERED: ISOVUE-370 76% 100ML VIAL As Ordered ONE (03:00)
[2020-01-23] MEDS ORDERED: PIPERACILLIN/TAZOBACTAM SOD 3.375 GM in D5W MINI-BAG PLUS 50 ML IV ONE (03:45)
--- NOTE | 2020-01-23 03:52 | REPVR ---
PROCEDURE INFORMATION: Exam: CT Abdomen And Pelvis Without And With Contrast Exam date and time: 01/23/2020 2:51 AM Age: 79 years old Clinical indication: Abdominal pain; Flank; Right; Additional info: Flank pain, sepsis, low h/h TECHNIQUE: Imaging protocol: Computed tomography of the abdomen and pelvis without and with intravenous contrast. Radiation optimization: All CT scans at this facility use at least one of these dose optimization techniques: automated exposure control; mA and/or kV adjustment per patient size (includes targeted exams where dose is matched to clinical indication); or iterative reconstruction. Contrast material: ISO; Contrast volume: 10 ml; Contrast route: INTRAVENOUS (IV); COMPARISON: CT ABD PELVIS W/O CONTRAST 09/09/2019 5:38 PM FINDINGS: Liver: Normal. No mass. Gallbladder and bile ducts: Trace pericholecystic fluid. No gallbladder wall thickening or calculi are seen. No biliary duct dilation. Gallbladder is nondistended. Pancreas: Normal. No ductal dilation. Spleen: Normal. No splenomegaly. Adrenals: Normal. No mass. Kidneys and ureters: Nonobstructing calyceal stones in the right kidney. No hydronephrosis. No renal masses. Stomach and bowel: Unremarkable. No obstruction. No mucosal thickening. Appendix: No evidence of appendicitis. Intraperitoneal space: Unremarkable. No free air. No significant fluid collection. Vasculature: Unremarkable. No abdominal aortic aneurysm. Lymph nodes: Unremarkable. No enlarged lymph nodes. Bladder: Mildly thickened bladder wall. Reproductive: Unremarkable as visualized. Bones/joints: Prior ORIF of the left femur. There are advanced degenerative changes in the spine and pelvis. Multilevel spinal stenosis. Soft tissues: Unremarkable. IMPRESSION: 1. Trace pericholecystic fluid. No secondary signs of cholecystitis or biliary duct dilation. Consider follow-up gallbladder ultrasound if there is concern for acute cholecystitis. 2. Mild urinary bladder wall thickening suggesting cystitis. 3. Nonobstructing calyceal stones in the kidneys. No hydronephrosis. Electronically signed by: Constantine Bermeo On 01/23/2020 03:51:38 AM
[2020-01-23] MEDS: MORPHINE 4 MG/ML 1ML VIAL/SYRINGE (J2270) IV PRN ×2 (04:02→05:49)
[2020-01-23] MEDS ORDERED: SYNT100T PO (04:22)
[2020-01-23] MEDS ORDERED: TIZA2TAB6 PO (04:22)
--- NOTE | 2020-01-23 04:45 | REPVR ---
PROCEDURE INFORMATION: Exam: US Abdomen Limited, Right Upper Quadrant Exam date and time: 01/23/2020 4:33 AM Age: 79 years old Clinical indication: Abdominal pain; Flank; Right; Additional info: Abd pain TECHNIQUE: Imaging protocol: Real-time ultrasound of the abdomen with image documentation. Examination was focused on the right upper quadrant. COMPARISON: LIVER US 10/22/2019 9:08 AM FINDINGS: Liver: Normal. No masses. Gallbladder: Small echogenic foci are noted in the gallbladder suggesting adenomyomatosis. No gallbladder calculi are seen. Gallbladder wall is mildly thickened at 4 mm. Common bile duct: No biliary duct dilation. Pancreas: The pancreas is not well visualized due to bowel gas. Right kidney: Small calyceal stones are noted in the right kidney. No hydronephrosis. Right kidney is otherwise unremarkable. IMPRESSION: 1. Mild gallbladder wall thickening may be seen in the setting of cholecystitis but is not diagnostic. No biliary duct dilation. Mild gallbladder adenomyomatosis. 2. Nonobstructing calyceal stones in the right kidney. No hydronephrosis. Electronically signed by: Constantine Bermeo On 01/23/2020 04:44:20 AM
[2020-01-23] MEDS ORDERED: GLUCOSE 4GM CHEW TABLET PO PRN (05:45)
[2020-01-23] MEDS ORDERED: DEXTROSE 50% 50 ML SYRINGE IV PRN (05:45)
[2020-01-23] MEDS ORDERED: GLUCAGON INJ 1MG VIAL SC PRN (05:45)
--- NOTE | 2020-01-23 05:52 | HPEPDOC ---
[facility] Medical History & Physical Date of Admission Jan 23, 2020 Date of Service: Jan 23, 2020 Attending Physician: CARLOTTA GOMEZ MD History and Physical CHIEF COMPLAINT: Abdominal pain HISTORY OF PRESENT ILLNESS: 79-year-old female with past medical history of atrial fibrillation (on Eliquis), hypertension, diabetes mellitus, hyperlipidemia, chronic back pain and hypothyroidism presents with abdominal pain. She received injections in her back from pain physician 3 days ago for chronic back pain, has been experiencing diffuse abdominal pain for the past 2 days. She also reports dysuria and increased urinary frequency for the past 5 days along with subjective fevers. She is also been expressing nausea and reports one episode of melena 2 days ago, no bowel movements since then. She denies any chest pain, diarrhea or headaches. 10 point review of system is negative except for above PAST MEDICAL HISTORY: 1. Atrial fibrillation. 2. Hypertension. 3. Diabetes mellitus. 4. Hyperlipidemia. 5. Chronic back pain. 6. Hypothyroidism PAST SURGICAL HISTORY: 1. Appendectomy. 2. Loop recorder SOCIAL HISTORY: Denies smoking. Denies alcohol use. Denies drug use FAMILY HISTORY: Negative for malignancy ALLERGIES: Please see below. HOME MEDICATIONS: Please see below. PHYSICAL EXAMINATION: VITAL SIGNS: Please see below. GENERAL: No distress HEENT: Normocephalic, atraumatic, moist mucous membranes NECK: Supple CARDIOVASCULAR EXAMINATION: S1, S2, no murmurs RESPIRATORY EXAMINATION: Scattered rhonchi, diminished the bases, no wheezing ABDOMINAL EXAMINATION: Soft, diffuse tenderness to palpation, no rebound or guarding, mildly distended, positive bowel sounds EXTREMITIES: Range of motion intact SKIN: No rash NEUROLOGICAL EXAMINATION: Alert and oriented 3, no focal deficits PSYCHIATRIC EXAMINATION: Anxious LABORATORY DATA: See below. IMAGING: CT abdomen and pelvis showing gallbladder wall thickening and evidence of cystitis MICROBIOLOGY: Please see below. ASSESSMENT: 79-year-old female with multiple medical comorbidities, is being admitted for cystitis and GI bleed. PLAN: 1. GI bleed. Likely upper, only reports one episode of melena, on Eliquis, naproxen and Citalopram in the outpatient setting, we'll hold these medications, nothing by mouth, Protonix 40 mg IV twice a day, IV hydration, please consult GI in the morning for eventual EGD/colonoscopy. 2. Cystitis. Symptoms, UA and imaging concerning for cystitis, CT also showing possible gallbladder infection, ceftriaxone/Flagyl, urine and blood cultures pending. 3. Diabetes mellitus Sliding scale insulin coverage every 6 hours 4. Hypertension. Continue Imdur and lisinopril 5. Paroxysmal atrial fibrillation. Currently in normal sinus rhythm, has Loop recorder, continue flecainide, will hold anticoagulation due to bleeding. 6. Hypothyroidism Continue levothyroxine 7. Chronic back pain. Continue home Dilaudid when necessary for pain DVT prophylaxis: SCDs GI prophylaxis: PPI Vital Signs Vital Signs Date Time Temp Pulse Resp B/P (MAP) Pulse Ox O2 Delivery O2 Flow Rate FiO2 01/23/20 04:55 100.0 81 18 149/66 99 Room Air Laboratory Data Labs 24H Laboratory Tests 2 01/23/20 02:00: Immature Granulocyte % (Auto) 1.6, Neutrophils (%) (Auto) 46.4, Lymphocytes (%) (Auto) 40.9, Monocytes (%) (Auto) 10.7H, Eosinophils (%) (Auto) 0.2, Basophils (%) (Auto) 0.2, Neutrophils # (Auto) 2.4, Lymphocytes # (Auto) 2.1, Monocytes # (Auto) 0.6, Eosinophils # (Auto) 0.0, Basophils # (Auto) 0.0, Nucleated Red Blood Cells % (auto) 0.4H, Immature Platelet Fraction 5.6, Prothrombin Time 15.4H, Prothromb Time International Ratio 1.25, Activated Partial Thromboplast Time 32.0, Lactic Acid Level 1.6, Total Bilirubin 0.7, Direct Bilirubin 0.2, Aspartate Amino Transf (AST/SGOT) 24, Alanine Aminotransferase (ALT/SGPT) 20, Alkaline Phosphatase 53, Total Protein 7.0, Albumin 3.5, Albumin/Globulin Ratio 1.0L, Lipase 22L 01/23/20 02:21: POC Glucose (Misc Panel) 146H, POC Sodium (Misc Panel) 136, POC Potassium (Misc Panel) 3.9, POC Chloride (Misc Panel) 99, POC Total CO2 (Misc Panel) 25.0, POC Blood Urea Nitrogen (Misc Panel 22, POC Ionized Calcium (Misc Panel) 4.5, POC Creatinine (Misc Panel) 0.8, POC Hematocrit (Misc Panel) 18.0L 01/23/20 02:45: Urine Color YELLOW, Urine Appearance CLEAR, Urine pH 5.0, Urine Specific [place] 1.011, Urine Protein NEGATIVE, Urine Glucose (UA) NEGATIVE, Urine Ketones NEGATIVE, Urine Blood 1+H, Urine Nitrite POSITIVEH, Urine Bilirubin NEGATIVE, Urine Urobilinogen 0.2, Urine Leukocyte Esterase 2+H, Urine WBC (Auto) 43H, Urine RBC (Auto) 5H, Urine Hyaline Casts (Auto) 0, Urine Bacteria (Auto) 2+H, Urine Squamous Epithelial Cells 0, Urine Sperm (Auto) CBC/BMP Laboratory Tests 01/23/20 02:00 Microbiology Microbiology 01/23/20 Urine Culture, Received Pending 01/23/20 Blood Culture, Received Pending 01/23/20 Blood Culture, Received Pending Home Medications Scheduled Apixaban (Eliquis) 5 Mg Tablet, 5 MG PO BID 2ND DOSE AT 1730 Citalopram Hydrobromide (Citalopram HBr) 10 Mg Tab, 10 MG PO DAILY Flecainide Acetate (Flecainide Acetate) 50 Mg Tablet, 50 MG PO BID 2ND DOSE AT 1730 Isosorbide Mononitrate (Isosorbide Mononitrate ER) 30 Mg Tab.er.24h, 30 MG PO DAILY Levothyroxine Sodium (Synthroid) 100 Mcg Tablet, 100 MCG PO DAILY Lisinopril (Lisinopril) 5 Mg Tablet, 2.5 MG PO DAILY Metformin HCl (Metformin HCl) 500 Mg Tab, 1,000 MG PO BID 2ND DOSE AT 1730 Metoprolol Tartrate (Metoprolol Tartrate) 50 Mg Tablet, 50 MG PO BID 2ND DOSE AT 1730 Potassium Chloride (Potassium Chloride) 10 Meq Tablet.er, 10 MEQ PO BID Quetiapine Fumarate (Quetiapine Fumarate) 50 Mg Tab, 50 MG PO TID 0530, 1200, 1700 Scheduled PRN Hydromorphone HCl (Hydromorphone HCl) 2 Mg Tablet, 2 MG PO QID PRN for PAIN Naproxen Sodium (Aleve) 220 Mg Capsule, 220 MG PO BID PRN for PAIN Tizanidine HCl (Tizanidine HCl) 2 Mg Tablet, 2 MG PO QID PRN for MUSCLE SPASMS Allergies Coded Allergies: Sulfa (Sulfonamide Antibiotics) (Verified Allergy, Intermediate, HIVES, 04/29/19) A-FIB/CHADSVASC A-FIB History Current/History of A-Fib/PAF?: No CARLOTTA GOMEZ MD Jan 23, 2020 05:52
[2020-01-23] MEDS ORDERED: metroNIDAZOLE 500 MG in IV 1 EA IV SCH (06:00)
[2020-01-23] MEDS ORDERED: NS 1,000 ML IV SCH (06:00)
[2020-01-23] MEDS: QUEtiapine FUMARATE 50 MG TAB PO SCH ×3 (06:00→18:34)
[2020-01-23] MEDS: PANTOPRAZOLE 40MG VIAL (C9113 PER 1) IV SCH ×2 (08:03→19:58)
[2020-01-23] MEDS: HumaLOG INSULIN (NovoLOG) PER UNIT SC SCH ×3 (08:04→18:34)
[2020-01-23] MEDS: lisinopriL 5 MG TAB PO SCH (08:05)
[2020-01-23] MEDS: METOPROLOL TART 50 MG TAB PO SCH ×2 (08:06→18:34)
[2020-01-23] MEDS: POTASSIUM CHLORIDE 10 MEQ SR TABLET PO SCH ×2 (08:06→19:58)
[2020-01-23] MEDS: HYDROmorphone 2 MG TAB PO PRN ×3 (08:07→19:58)
--- NOTE | 2020-01-23 08:13 | ECGEPIP ---
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
[2020-01-23] MEDS: FLECAINIDE 50MG TABLET PO SCH ×2 (08:24→18:33)
[2020-01-23] MEDS: ISOSORBIDE MON. (IMDUR) 30 MG XR TAB PO SCH (08:25)
[2020-01-23] MEDS: LEVOTHYROXINE 100MCG TABLET (0.1MG) PO SCH (08:25)
[2020-01-23] MEDS: ONDANSETRON 4MG/2ML VIAL IV PRN (08:33)
[2020-01-23 09:00] LABS: BASO % 0.2 % (0.0-1.0); EOS % 0.2 % (0.0-3.0); HEMOGLOBIN 7.1 g/dl (12.0-15.5); LYMPH # 1.4 10^3/uL (1.5-5.0); LYMPH % 30.9 % (24.0-44.0); MEAN CORPUSCULAR HEMOGLOBIN 30.6 pg (27.0-33.0); MEAN CORPUSCULAR HGB CONC 33.8 g/dl (32.0-36.5); MEAN CORPUSCULAR VOLUME 90.5 fl (80.0-96.0); MONO # 0.3 10^3/uL (0.0-0.8); MONO % 6.1 % (0.0-5.0); NEUTROPHILS # 2.7 10^3/uL (1.5-8.5); NEUTROPHILS % 61.2 % (36.0-66.0); RED BLOOD COUNT 2.32 10^6/uL (4.00-5.40); WHITE BLOOD COUNT 4.4 10^3/uL (4.0-10.0)
[2020-01-23 09:01] LABS: PLATELET COUNT, AUTOMATED 38 10^3/uL (150-450)
[2020-01-23 09:14] LABS: BLOOD UREA NITROGEN 15 MG/DL (7-18); CALCIUM LEVEL 7.7 MG/DL (8.8-10.2); CARBON DIOXIDE LEVEL 27 MEQ/L (21-32); CHLORIDE LEVEL 105 MEQ/L (98-107); CREATININE FOR GFR 0.94 MG/DL (0.55-1.30); GLOMERULAR FILTRATION RATE > 60.0 (>39); GLUCOSE, FASTING 138 MG/DL (70-100); MAGNESIUM LEVEL 1.5 MG/DL (1.8-2.4); POTASSIUM SERUM 3.7 MEQ/L (3.5-5.1); SODIUM LEVEL 140 MEQ/L (136-145)
[2020-01-23] MEDS: cefTRIAXone SOD 1 GM in D5W MINI-BAG PLUS 50 ML IV SCH (10:30)
--- NOTE | 2020-01-23 12:46 | IPNPDOC ---
Text Note Date of Service The patient was seen on 01/23/20. 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 Patient stated also she had a nausea and suprapubic abdominal pain. Patient denied fever or chills, chest pain, diarrhea Objective: PHYSICAL EXAMINATION: VITAL SIGNS: Please see below. GENERAL: In moderate distress HEENT: Normocephalic, atraumatic, moist mucous membranes NECK: Supple CARDIOVASCULAR EXAMINATION: S1, S2, no murmurs RESPIRATORY EXAMINATION: CTA ABDOMINAL EXAMINATION: Soft, diffuse tenderness to palpation, no rebound or guarding, mildly distended, positive bowel sounds EXTREMITIES: Range of motion intact SKIN: No rash NEUROLOGICAL EXAMINATION: Alert and oriented 3, no focal deficits PSYCHIATRIC EXAMINATION: Anxious Assessment and plan Patient 79 years old female with past medical history of chronic back pain, atrial fibrillation, type 2 diabetes, hyperlipidemia presented to the hospital with acute anemia secondary to GI bleed. Acute blood loss anemia Secondary to GI bleed Most likely secondary to NSAIDs and oral anticoagulation PPI IV Continue blood transfusion H&H every 6 hours Appreciate/agree with GI consult CT abdomen and pelvis negative for cholecystitis or biliary duct dilation. I discontinued metronidazole Acute cystitis Patient has dysuria and suprapubic tenderness UA showed pyuria Continue ceftriaxone Hypertension Continue home cardioprotective medications Paroxysmal atrial fibrillation Heart rate is under control Eliquis on hold Hypothyroidism Continue levothyroxine Chronic back pain Continue pain management Diabetes type 2 Diabetes diet Insulin sliding scale VS,Fishbone, I+O VS, Fishbone, I+O Laboratory Tests 01/23/20 02:00 01/23/20 08:28 Vital Signs Date Time Temp Pulse Resp B/P (MAP) Pulse Ox O2 Delivery O2 Flow Rate FiO2 01/23/20 11:41 97.5 76 18 150/70 (96) 100 Nasal Cannula 01/23/20 11:30 2.0 I&O- Last 24 Hours up to 6 AM 01/23/20 06:00 Intake Total 50 ml Balance 50 ml VIRA LOPEZ DO Jan 23, 2020 12:46
[2020-01-23] MEDS ORDERED: MAG SULF 1GM/100ML (MAG RUN) 1 GM in IV 1 EA IV ONE (13:00)
[2020-01-23] MEDS ORDERED: FUROSEMIDE 40MG/4ML VIAL (J1940) As Ordered ONE (15:26)
[2020-01-23] MEDS ORDERED: NITROGLYCERIN 0.4 MG SUBL TABLET As Ordered ONE (15:26)
[2020-01-23] MEDS ORDERED: diphenhydrAMINE 50MG/ML VIAL (J1200) As Ordered ONE (15:27)
[2020-01-23] MEDS ORDERED: methylPREDNISolone INJ 40 MG/1 ML VIAL (J2920) As Ordered ONE (15:41)
--- NOTE | 2020-01-23 15:52 | REP ---
Oral chest x-ray: Single view. History: Chest pain. Comparison chest x-ray: August 06, 2019. Findings: A loop recorder and EKG monitoring electrodes are seen. Cardiomegaly is observed. Pulmonary vasculature is cephalized and congested. There is mild interstitial edema pattern. No pleural effusion is seen. In some increased density in the right upper lobe. I cannot exclude a superimposed right upper lobe infiltrate. Impression: CHF pattern with vascular congestion and interstitial edema. Some increased markings right upper lobe compared to left. Electronically Signed by Vj Clark MD 01/23/2020 03:42 P
[2020-01-23] MEDS ORDERED: NITROGLYCERIN 0.4 MG SUBL TABLET SL STA (16:17)
[2020-01-23] MEDS ORDERED: ALBUTEROL SULFATE 2.5 MG/0.5 ML INH NEB SOLN NEB ONE (16:30)
[2020-01-23] MEDS ORDERED: methylPREDNISolone INJ 40 MG/1 ML VIAL (J2920) IV ONE (17:00)
[2020-01-23] MEDS ORDERED: FUROSEMIDE 40MG/4ML VIAL (J1940) IV ONE (17:00)
[2020-01-23] MEDS ORDERED: diphenhydrAMINE 50MG/ML VIAL (J1200) IV ONE (17:00)
[2020-01-23 17:08] LABS: ABG BASE EXCESS -1.3 (-2.0-2.0); ABG HCO3 21.7 MEQ/L (22.0-26.0); ABG O2 SATURATION 96.1 % (95.0-99.0); ABG PARTIAL PRESSURE CO2 30.6 mmHg (35.0-45.0); ABG PARTIAL PRESSURE O2 80.4 mmHg (75.0-100.0); ABG STANDARD HCO3 23.3 MEQ/L (22.0-26.0); ABG TOTAL CO2 22.7 MEQ/L (23.0-31.0); ABG pH (ARTERIAL) 7.469 UNITS (7.350-7.450)
[2020-01-23 17:53] LABS: CK-MB VALUE MASS 1.8 NG/ML (<3.6); MB/CK RELATIVE INDEX 3.83 (< OR =4); TROPONIN I 0.38 NG/ML (< 0.10)
--- NOTE | 2020-01-23 18:05 | REPVR ---
PROCEDURE INFORMATION: Exam: CT Head Without Contrast Exam date and time: 01/23/2020 4:32 PM Age: 79 years old Clinical indication: Altered mental status/memory loss; Additional info: Mental status change TECHNIQUE: Imaging protocol: Computed tomography of the head without contrast. Radiation optimization: All CT scans at this facility use at least one of these dose optimization techniques: automated exposure control; mA and/or kV adjustment per patient size (includes targeted exams where dose is matched to clinical indication); or iterative reconstruction. COMPARISON: CT Head without contrast 08/02/2019 12:14 PM FINDINGS: Brain: No intracranial mass, focal mass effect or midline shift. No acute intracranial hemorrhage. Mild decreased attenuation in periventricular/centrum semiovale white matter. No focal effacement of cortical sulci to indicate acute cortical infarct. Ventricles: Prominent ventricles and CSF spaces suggest parenchymal volume loss. Bones/joints: No calvarial fracture or destructive process. Sinuses: Visualized paranasal sinuses are unremarkable. Mastoid air cells: Mastoid air cells are normally aerated. Orbits: Visualized globes and orbits are unremarkable. Soft tissues: No focal extracranial soft tissue swelling. IMPRESSION: 1. No acute intracranial abnormality. 2. Atrophy and chronic microangiopathic change in supratentorial white matter. Electronically signed by: Teja Mccormack On 01/23/2020 18:05:48 PM
[2020-01-23] MEDS ORDERED: MORPHINE 2 MG/ML 1ML VIAL (J2270) IV ONE (19:45)
[2020-01-23 21:59] LABS: MB/CK RELATIVE INDEX 12.2 (< OR =4); TROPONIN I 2.97 NG/ML (< 0.10)
[2020-01-24] VITALS (7 sets, daily range): BP systolic 94–139; BP diastolic 52–69
[2020-01-24] MEDS: HumaLOG INSULIN (NovoLOG) PER UNIT SC SCH ×5 (00:35→20:57)
[2020-01-24] MEDS ORDERED: FUROSEMIDE 20MG/2ML VIAL (J1940) IV ONE (02:15)
[2020-01-24] MEDS: HYDROmorphone 2 MG TAB PO PRN ×3 (03:55→20:56)
[2020-01-24] MEDS: QUEtiapine FUMARATE 50 MG TAB PO SCH ×3 (05:45→17:42)
[2020-01-24 06:23] LABS: HEMATOCRIT 26.6 % (36.0-47.0); MEAN CORPUSCULAR HGB CONC 34.6 g/dl (32.0-36.5); MEAN CORPUSCULAR VOLUME 86.6 fl (80.0-96.0); RED BLOOD COUNT 3.07 10^6/uL (4.00-5.40); WHITE BLOOD COUNT 3.4 10^3/uL (4.0-10.0)
[2020-01-24 06:33] LABS: CALCIUM LEVEL 7.6 MG/DL (8.8-10.2); CREATININE FOR GFR 1.21 MG/DL (0.55-1.30); GLOMERULAR FILTRATION RATE 45.7 (>39); POTASSIUM SERUM 3.7 MEQ/L (3.5-5.1); TROPONIN I 3.44 NG/ML (< 0.10)
[2020-01-24 06:45] LABS: PLATELET COUNT, AUTOMATED 27 10^3/uL (150-450)
[2020-01-24 06:46] LABS: HEMOGLOBIN 9.2 g/dl (12.0-15.5)
[2020-01-24] MEDS: PANTOPRAZOLE 40MG VIAL (C9113 PER 1) IV SCH ×2 (08:30→20:54)
[2020-01-24] MEDS: MORPHINE 2 MG/ML 1ML VIAL (J2270) IV PRN ×3 (08:31→22:33)
[2020-01-24] MEDS: cefTRIAXone SOD 1 GM in D5W MINI-BAG PLUS 50 ML IV SCH (08:32)
[2020-01-24] MEDS: POTASSIUM CHLORIDE 10 MEQ SR TABLET PO SCH ×2 (08:35→20:56)
[2020-01-24] MEDS: METOPROLOL TART 50 MG TAB PO SCH ×2 (08:35→17:31)
[2020-01-24] MEDS: ISOSORBIDE MON. (IMDUR) 30 MG XR TAB PO SCH (08:35)
[2020-01-24] MEDS: FLECAINIDE 50MG TABLET PO SCH ×2 (08:38→17:43)
[2020-01-24] MEDS: lisinopriL 5 MG TAB PO SCH (08:38)
[2020-01-24] MEDS: LEVOTHYROXINE 100MCG TABLET (0.1MG) PO SCH (08:38)
--- NOTE | 2020-01-24 08:49 | ECGEPIP ---
[facility] Test Date: 2020-01-23 Pat Name: MARIAH BARAJAS Department: Room: [place] [address] Gender: Female Risk Control Field Representative: : 1940 Requested By: VIRA LOPEZ Order Number: [id number] Reading MD: Solomon Kennedy Measurements Intervals [place] Rate: 114 P: 89 [place]: 183 QRS: 14 QRSD: 98 T: 75 QT: 319 QTc: 441 Interpretive Statements Much artifact Sinus tachycardia Low voltage in the limb leads Nonspecific repolarization abnormalities Compared to prior tracing of earlier this date, heart rate is faster and repolarization abnormalities are more profound Electronically Signed on 01-24-2020 8:49:31 EDT by Solomon Kennedy
--- NOTE | 2020-01-24 08:52 | ECGEPIP ---
[facility] Test Date: 2020-01-23 Pat Name: MARIAH BAARJAS Department: Room: G8984-03 Gender: Female Career Development Counselor: DILLON : 1940 Requested By: CARLOTTA Holt Order Number: [id number] Reading MD: Solomon Kennedy Measurements Intervals [place] Rate: 74 P: 74 [place]: 163 QRS: 22 QRSD: 91 T: 30 QT: 431 QTc: 480 Interpretive Statements Normal sinus rhythm with sinus arrhythmia Nonspecific repolarization abnormalities Compared to prior tracing of earlier this date, heart rate is slower, QRS complex voltage in the limb leads is marginally improved, and repolarization abnormalities are less profound Electronically Signed on 01-24-2020 8:51:47 EDT by Solomon Kennedy
--- NOTE | 2020-01-24 08:57 | ECGEPIP ---
[facility] Test Date: 2020-01-24 Pat Name: MARIAH BARAJAS Department: Room: [place] [address] Gender: Female Insole Doubler: DOLORES : 1940 Requested By: VIRA LOPEZ Order Number: [id number] Reading MD: Solomon Kennedy Measurements Intervals [place] Rate: 75 P: 89 [place]: 160 QRS: 44 QRSD: 92 T: 46 QT: 447 QTc: 501 Interpretive Statements Normal sinus rhythm Incomplete right bundle branch block Consider prior true posterior GA Nonspecific repolarization abnormalities Compared to prior tracing of 01/23/2020, there is no significant change Electronically Signed on 01-24-2020 8:56:59 EDT by Solomon Kennedy
[2020-01-24] MEDS ORDERED: FUROSEMIDE 40MG/4ML VIAL (J1940) IV SCH (09:00)
[2020-01-24 09:26] LABS: INR 1.35; PROTHROMBIN TIME 16.4 SECONDS (11.8-14.0)
[2020-01-24 09:27] LABS: PARTIAL THROMBOPLASTIN TIME 33.2 SECONDS (25.0-38.4)
[2020-01-24 09:29] LABS: D-DIMER QUANT 2131.94 ng/ml (<500)
--- NOTE | 2020-01-24 10:20 | ECHO ---
DATE OF STUDY: 01/23/2020 REFERRING PHYSICIAN: Dr. Familia Russell INDICATION: Chest pain, unspecified. HEIGHT: 157 cm. WEIGHT: 69 kg. 2D MEASUREMENTS: Ventricular septum: 0.98 cm Posterior wall: 1.08 cm Left ventricle diastole: 4.5 cm Left atrium: 3.3 cm Aortic annulus: 2.1 cm Aortic root: 2.9 cm Inferior vena cava: 2.3 cm (less than 50% respiratory variation) DOPPLER MEASUREMENTS: No aortic stenosis. No aortic regurgitation. Aortic valve velocity: 142 cm/s LVOT: 97.3 cm/s LVOT VTI: 16.9 cm Mild mitral regurgitation. No mitral stenosis. Mitral E velocity: 76.3 cm/s Mitral A velocity: 80.1 cm/s Mitral deceleration time: 141 cm/s Mild tricuspid regurgitation. Estimated right ventricle systolic pressure: At least 48 mmHg assuming a right pressure of at least 20 mmHg. No pulmonic regurgitation. Pulmonary acceleration time: 109 ms MITRAL ANNULAR TISSUE DOPPLER: E prime septal: 3.0 cm/s E prime lateral: 7.1 cm/s DESCRIPTION: Rhythm was sinus with frequent premature atrial contractions (PACs). This was a moderately technically difficult echocardiogram. This was a 2D, M-mode, color flow Doppler, and pulse wave Doppler examination including mitral annular tissue Doppler. CONCLUSIONS: 1. Normal left ventricle size and internal dimensions. Mild reduction overall left ventricular (LV) systolic function. Left ventricular ejection fraction (LVEF) 50% by visual estimate. Paradoxes of motion involving the basal anteroseptal and basal inferoseptal segments. Moderate hypokinesis of the basal inferolateral segment. Normal wall motion and wall thickening elsewhere. Grade 1 LV diastolic dysfunction (impaired relaxation filling pattern). 2. Suggestive of moderate elevation of estimated right ventricle systolic pressure. Mild tricuspid regurgitation. Normal right ventricle size and systolic function. Prominent trabeculations in the right ventricle consistent with right ventricle hypertrophy. Inferior vena cava plethora suggestive of elevated central venous pressure of at least 20 mmHg. 3. Severe mitral annular calcification. No aortic stenosis. No aortic regurgitation. 4. Moderate mitral annular calcification. Mild mitral regurgitation. No mitral stenosis. 5. No pericardial effusion.
--- NOTE | 2020-01-24 11:58 | CR.PDOC ---
General Date of Consultation: Jan 24, 2020 Referring Provider: VIRA LOPEZ DO Consultation HEMATOLOGY REASON FOR CONSULTATION/CHIEF COMPLAINT: Leukopenia and thrombocytopenia in setting of GI bleed and NSTEMI with chronic and significant anemia x 8 years HISTORY OF PRESENT ILLNESS: We were asked to evaluate this chronically ill 79-year-old female due to acute illness with resultant leukopenia and thrombocytopenia in setting of acute GI bleed and urosepsis with pyuria. Patient had nausea with melena x 2 days and urinary symptoms with dysuria x 5 days prior to admission. She is on apixaban for paroxysmal atrial fibrillation. Her PMH is significant for long-standing diabetes mellitus. She came in with grade 4 anemia, grade 3 thrombocytopenia and has had troponin release c/w non-STEMI. We were called specifically to address d-dimer and blood counts. Review of the case is consistent with both consumption from acute GI bleed and myelosuppression for acute infection. Technically, we would always expect a positive d-dime in this situation as biologically, we have been having bleeding and clotting. The treatment for DIC is to treat the underlying causing causes, she is currently being treated for those known causes. Given respiratory issues, it is not unreasonable to see if the patient has developed pulmonary embolism. The creatinine did rise to 1.21 this AM, but still acceptable to receive IV contrast. PAST MEDICAL HISTORY: Thrombocytopenia common with acute illness dating back to 2012 Chronic anemia dating back to 2011 with levels 8-11gm/dl since that time. At no time did she ever have one normal hemoglobin value noted in the [facility] system. Low iron stores when last assessed in 2018 Chronic but paroxysmal atrial fibrillation. Hypertension. Long-standing diabetes mellitus. Hyperlipidemia. Chronic back pain with recent injection Hypothyroidism PAST SURGICAL HISTORY: Appendectomy. Loop recorder SOCIAL HISTORY: Denies smoking. Denies alcohol use. Denies drug use FAMILY HISTORY: Negative for malignancy ALLERGIES: Please see below. HOME MEDICATIONS: Please see below. LABORATORY DATA: See below. IMAGING: CT abdomen and pelvis showing gallbladder wall thickening and evidence of cystitis MICROBIOLOGY: Please see below. ASSESSMENT: Chronically ill 79-year-old female with multiple medical comorbidities with recent GI bleed, grade 4 anemia, grade 3 thrombocytopenia and elevated troponin c/w Non-STEMI. elevated D-dimer expected with expected DIC. Has evidence for pyuria. RECOMMENDATIONS: From a hematological standpoint, treatment is mainly supportive. Patient has already been successfully transfused PRBC. Would hold off on platelet transfusion unless actively bleeding or if platelet count goes less than 15,000- 20K. Relatively elevated fibrinogen levels goes again an active process. Can confirm that the DIC is not significantly active with serial fibrin-degradation product testing. Would agree that we should consider ruling out a pulmonary embolism. Would continue broad spectrum antibiotics pending panculture results. Would stop abixaban Given paroxysmal a-fib and loop recorder history, would ask cardiology to weigh in on current cardiac issues with troponin release as well as use or lack thereof of anticoagulation in the future. Would recommend outpatient assessment of chronic anemia if patient survives hospitalization in 3-4 weeks pending clinical outcome. She has had significant anemia documented consistently since 2011 Expect some recovery of platelet count in next 5-7 days Thank you kindly for consult, please do not hesitate to call with questions We will follow with you. Vital Signs/I&O Vital Signs Date Time Temp Pulse Resp B/P (MAP) Pulse Ox O2 Delivery O2 Flow Rate FiO2 01/24/20 08:41 18 93 Room Air 01/24/20 08:38 114/55 01/24/20 08:35 71 01/24/20 07:34 96.7 2.0 I&O- Last 24 Hours up to 6 AM 01/24/20 06:00 Intake Total 1972 ml Output Total 1650 ml Balance 322 ml Laboratory Data Labs 24H Laboratory Tests 2 01/23/20 12:14: Bedside Glucose (Misc Panel) 161H 01/23/20 16:57: Total Creatine Kinase 47, Creatine Kinase MB 1.8, Creatine Kinase MB Relative Index 3.83, Troponin I 0.38H 01/23/20 16:58: Blood Gas Bicarbonate Standard 23.3, Arterial Blood pH 7.469H, Arterial Blood Partial Pressure CO2 30.6L, Arterial Blood Partial Pressure O2 80.4, Arterial Blood Total CO2 22.7L, Arterial Blood HCO3 21.7L, Arterial Blood Base Excess - 1.3, Arterial Blood Oxygen Saturation 96.1 01/23/20 18:27: Bedside Glucose (Misc Panel) 229H 01/23/20 20:59: Total Creatine Kinase 41, Creatine Kinase MB 5.0H, Creatine Kinase MB Relative Index 12.20H, Troponin I 2.97#*H 01/23/20 23:07: Troponin I 3.54*H 01/24/20 00:34: Bedside Glucose (Misc Panel) 226H 01/24/20 05:13: Bedside Glucose (Misc Panel) 154H 01/24/20 05:26: Nucleated Red Blood Cells % (auto) 0.0, Immature Platelet Fraction 4.9 01/24/20 05:30: Anion Gap 9, Glomerular Filtration Rate 45.7, Calcium Level 7.6L, Troponin I 3.44*H 01/24/20 08:24: Prothrombin Time 16.4H, Prothromb Time International Ratio 1.35, Activated Partial Thromboplast Time 33.2, Fibrinogen 462H, D-Dimer, Quantitative 2131.94H CBC/BMP Laboratory Tests 01/24/20 05:26 01/24/20 05:30 01/24/20 08:24 Microbiology Microbiology 01/23/20 Urine Culture, Received Pending 01/23/20 Blood Culture - Preliminary, Resulted No growth after 24 hours . All specim... 01/23/20 Blood Culture - Preliminary, Resulted No growth after 24 hours . All specim... Allergies Coded Allergies: Sulfa (Sulfonamide Antibiotics) (Verified Allergy, Intermediate, HIVES, 04/29/19) Home Medications Scheduled Apixaban (Eliquis) 5 Mg Tablet, 5 MG PO BID, (Reported) 2ND DOSE AT 1730 Citalopram Hydrobromide (Citalopram HBr) 10 Mg Tab, 10 MG PO DAILY, (Reported) Flecainide Acetate (Flecainide Acetate) 50 Mg Tablet, 50 MG PO BID, (Reported) 2ND DOSE AT 1730 Isosorbide Mononitrate (Isosorbide Mononitrate ER) 30 Mg Tab.er.24h, 30 MG PO DAILY, (Reported) Levothyroxine Sodium (Synthroid) 100 Mcg Tablet, 100 MCG PO DAILY, (Reported) Lisinopril (Lisinopril) 5 Mg Tablet, 2.5 MG PO DAILY, (Reported) Metformin HCl (Metformin HCl) 500 Mg Tab, 1,000 MG PO BID, (Reported) 2ND DOSE AT 1730 Metoprolol Tartrate (Metoprolol Tartrate) 50 Mg Tablet, 50 MG PO BID, (Reported) 2ND DOSE AT 1730 Potassium Chloride (Potassium Chloride) 10 Meq Tablet.er, 10 MEQ PO BID, (Reported) Quetiapine Fumarate (Quetiapine Fumarate) 50 Mg Tab, 50 MG PO TID, (Reported) 0530, 1200, 1700 Scheduled PRN Hydromorphone HCl (Hydromorphone HCl) 2 Mg Tablet, 2 MG PO QID PRN for PAIN, (Reported) Naproxen Sodium (Aleve) 220 Mg Capsule, 220 MG PO BID PRN for PAIN, (Reported) Tizanidine HCl (Tizanidine HCl) 2 Mg Tablet, 2 MG PO QID PRN for MUSCLE SPASMS, (Reported) LEN NDIAYE MD Jan 24, 2020 11:58
[2020-01-24] MEDS ORDERED: ISOVUE-370 76% 100ML VIAL As Ordered ONE (12:01)
--- NOTE | 2020-01-24 12:41 | IPNPDOC ---
Text Note Date of Service The patient was seen on 01/24/20. NOTE Subjective: Pt stated that her breathing markedly improved, chest pain resolved. Pt denied any fever, chills, palpitations, diarrhea or dysuria Objective: PHYSICAL EXAMINATION: VITAL SIGNS: Please see below. GENERAL: In moderate distress HEENT: Normocephalic, atraumatic, moist mucous membranes NECK: Supple CARDIOVASCULAR EXAMINATION: S1, S2, no murmurs RESPIRATORY EXAMINATION: CTA ABDOMINAL EXAMINATION: Soft, diffuse tenderness to palpation, no rebound or guarding, mildly distended, positive bowel sounds EXTREMITIES: Range of motion intact SKIN: No rash NEUROLOGICAL EXAMINATION: Alert and oriented 3, no focal deficits PSYCHIATRIC EXAMINATION: Anxious Assessment and plan Patient 79 years old female with past medical history of chronic back pain, atrial fibrillation, type 2 diabetes, hyperlipidemia presented to the hospital with acute anemia secondary to GI bleed. Acute respiratory failure Yesterday during 3d unit of blood transfusion patient developed acute r espiratory failure, she was placed to nonrebreather, there was concern for acute transfusion reaction, however patient did not have any wheezes, chills, fever or itchiness. Chest x-ray was done and showed CHF pattern with vascular congestion and interstitial edema. Most likely patient developed TACO. Patient received Lasix IV with good response. EKG did not show acute ischemic changes. However, patient complained of some chest discomfort, first troponin was increased to 0.3, subsequent troponin was peaked to 3.5 and then trended down to 3.4 at 5 a.m. Repeated EKG did not show acute ischemic changes -echo was done and showed Paradoxes of motion involving the basal anteroseptal and basal inferoseptal segments. Moderate hypokinesis of the basal inferolateral segment. With ejection fraction 50%. There is concern that patient developed non STEMI secondary to acute respiratory distress Non-STEMI Most likely type 2 Patient is not candidate for anticoagulation therapy due to thrombocytopenia and recent GI bleed Continue to monitor troponin, EKG Appreciate/agree with croze machine operator consult Thrombocytopenia Patient has chronic pancytopenia. Overnight platelet count dropped to 28. There is concern for DIC DIC showed increased d-dimer, INR We will proceed with CTA, patient developed PE during blood transfusion. We'll check FDP Appreciate/agree with orthodontist consult Transfusion associated circulatory overload Secondary to blood transfusion We'll check BNP We'll continue Lasix IV Acute blood loss anemia Secondary to GI bleed Most likely secondary to NSAIDs and oral anticoagulation Continue with PPI IV Hemoglobin is stable H&H every [address] abdomen and pelvis negative for cholecystitis or biliary duct dilation. Acute cystitis Patient has dysuria and suprapubic tenderness UA showed pyuria Continue ceftriaxone Hypertension Continue home cardioprotective medications Paroxysmal atrial fibrillation Heart rate is under control Eliquis on hold Hypothyroidism Continue levothyroxine Chronic back pain Continue pain management Diabetes type 2 Diabetes diet Insulin sliding scale VS,Fishbone, I+O VS, Fishbone, I+O Laboratory Tests 01/24/20 05:26 01/24/20 05:30 01/24/20 08:24 Vital Signs Date Time Temp Pulse Resp B/P (MAP) Pulse Ox O2 Delivery O2 Flow Rate FiO2 01/24/20 12:18 18 96 Room Air 01/24/20 08:38 114/55 01/24/20 08:35 71 01/24/20 07:34 96.7 2.0 I&O- Last 24 Hours up to 6 AM 01/24/20 06:00 Intake Total 1972 ml Output Total 1650 ml Balance 322 ml VIRA LOPEZ DO Jan 24, 2020 12:41
--- NOTE | 2020-01-24 13:50 | REP ---
CT PULMONARY ANGIOGRAM: WITH IV CONTRAST. HISTORY: Pulmonary embolus. COMPARISON STUDIES: Comparison is made with previous day's chest x-ray. CONTRAST DOSE: 75 mL of Isovue [address] TECHNIQUE: Helical scanning is acquired and overlapping 1.5 mm and contiguous 3 mm axial images are reformatted. In addition, maximum intensity projection and multiplanar re-formation images are generated in sagittal and coronal imaging projections. CT PULMONARY ANGIOGRAPHIC FINDINGS: There is good opacification in the pulmonary arterial tree. There is no evidence of vessel cutoff or filling defect in the pulmonary arterial tree to suggest pulmonary embolus. Maximum intensity projection images are unremarkable. The thoracic aorta enhances homogeneously and is normal in course and caliber. No aneurysm or dissection is seen. There is a small amount of right pleural effusion. Mild four-chamber cardiomegaly is observed. No pericardial effusion is seen. There are patchy small ground-glass opacities in the upper lobes bilaterally. Findings suggest mild diffuse pulmonary edema. No significant pulmonary nodule or mass lesion is observed. There are some venous collaterals in the left upper quadrant of the abdomen. Normal adrenal glands. The visualized upper abdominal structures are otherwise unremarkable. No bony abnormality is seen. IMPRESSION: No CT evidence of pulmonary embolus. Mild diffuse alveolar edema pattern with cardiomegaly and small right pleural effusion, question CHF. Otherwise no active disease. Electronically Signed by Vj Clark MD 01/24/2020 02:41 P
[2020-01-24 14:31] LABS: MAGNESIUM LEVEL 1.9 MG/DL (1.8-2.4)
[2020-01-24 14:41] LABS: HEMATOCRIT 25.8 % (36.0-47.0); HEMOGLOBIN 8.7 g/dl (12.0-15.5); MEAN CORPUSCULAR HEMOGLOBIN 29.6 pg (27.0-33.0); MEAN CORPUSCULAR HGB CONC 33.7 g/dl (32.0-36.5); MEAN CORPUSCULAR VOLUME 87.8 fl (80.0-96.0); RED BLOOD COUNT 2.94 10^6/uL (4.00-5.40); WHITE BLOOD COUNT 3.6 10^3/uL (4.0-10.0)
[2020-01-24 14:46] LABS: PLATELET COUNT, AUTOMATED 26 10^3/uL (150-450)
[2020-01-24 15:08] LABS: CK-MB VALUE MASS 2.9 NG/ML (<3.6); MB/CK RELATIVE INDEX 9.35 (< OR =4); TROPONIN I 2.12 NG/ML (< 0.10)
[2020-01-24 15:23] LABS: ATYPICAL LYMPH 1 % (0-5); LYMPHOCYTES 37 % (16-44); MONOCYTES 9 % (0-5); NEUTROPHILS 53 % (28-66); PLATELET ESTIMATE MARKED DECREASE (NORMAL)
[2020-01-24 15:26] LABS: OVALOCYTES 1+
--- NOTE | 2020-01-24 16:06 | CR ---
DATE OF CONSULTATION: 01/24/2020 at 01:56 p.m. CONSULTATION REPORT FOR: Dr. Familia Russell REASON FOR CONSULTATION: Bdk-[id number]-[id number] myocardial infarction (NSTEMI). HISTORY OF PRESENT ILLNESS: Ynes Pollard is a 79-year-old woman who is a patient of Dr. Remedios Leija who has paroxysmal atrial fibrillation and status post implantable loop recorder in situ. She has systemic hypertension, hyperlipidemia, thrombocytopenia, peripheral vascular disease, chronic anemia, and diabetes and hypothyroidism. She was hospitalized to [facility] this occasion 01/23/2020 with complaints of abdominal pain. She reports to me that she had a preceding three-week history of dark tarry black bowel movements. No bright red blood per rectum. She completely denies any chest pain, pressure or tightness, wheezing or heaviness with or without exertion. She reports chronic exertional dyspnea that occurs with above ordinary physical activity. She reports occasional palpitations. No pre-syncope or syncope. No embolic events. No peripheral edema. In addition to gastrointestinal (GI) bleed, she was found to have cystitis. Prior to admission, she was on Eliquis 5 mg twice a day, flecainide 50 mg twice a day, isosorbide mononitrate 30 mg daily, and metoprolol tartrate 50 mg twice a day and potassium chloride 10 mg twice a day from the cardiac standpoint. She was also taking as-needed naproxen. See home medications for full listing. ADVERSE DRUG REACTIONS: SULFA (hives). The patient's current medications in the hospital are a follows: - ceftriaxone 1 gram IV daily - flecainide 50 mg twice a day - furosemide 40 mg IV daily - glucagon as needed - glucose as needed - Dilaudid 2 mg four times a day as needed - NovoLog insulin per sliding scale protocol - isosorbide mononitrate 30 mg daily - Synthroid 100 mcg daily - lisinopril 2.5 mg daily - metoprolol tartrate 50 mg twice a day - morphine 2 mg IV as needed - Zofran 2 mg IV as needed - potassium chloride 10 mEq twice a day - Seroquel 50 mg three times a day OTHER PAST MEDICAL AND SURGICAL HISTORY: 1. Thrombocytopenia during episodes of acute illness dating back to 2012. 2. Chronic anemia dating back to 2011. 3. Low iron stores. 4. Paroxysmal atrial fibrillation. 5. Systemic hypertension. 6. Diabetes. 7. Hyperlipidemia. 8. Chronic back pain. 9. Hypothyroidism. 10. Appendectomy. 11. Status post implantable loop recorder by Dr. Kidd in [place]. SOCIAL HISTORY: Nonsmoker. No alcohol. No illicit drug use. FAMILY HISTORY: Negative for malignancy. REVIEW OF SYSTEMS: As per history of present illness (HPI) and past history above. 10-point review of systems otherwise negative. PHYSICAL EXAMINATION: Pleasant, overweight, woman who appears her chronologic age who is not in any respiratory or psychologic distress. Height 62 inches, weight 70 kg, body mass index (BMI) 28.2. No conjunctival pallor or scleral icterus or exophthalmos. Oral mucosa is moist and without pallor or cyanosis. Jugular venous pulsations are at 3 cm. Trachea midline. No crackles or wheezes. No clubbing, nailbed cyanosis, or splinter hemorrhages. No skin lesions, skin pallor, or icterus. Oriented to person, place and time. Mood and affect normal. Gait is not tested as the patient is on bedrest. Gross motor strength and tone appeared normal. No fasciculations, muscle atrophy or tremors. No dullness to percussion. Loop recorder in situ left parasternal region. No palpable apex beat. No lifts, parasternal heaves, thrills, or palpable heart sounds. First and second heart sounds normal. No S3 or S4 or heart murmurs appreciated. Carotids are normal in volume and contour and without bruits. No palpable abdominal aorta. No abdominal bruits. Pedal pulses normal. No peripheral edema in the legs. Abdomen is obese, soft, nontender with normal bowel sounds. No hepatosplenomegaly or organomegaly. Liver span difficult to assess due to abdominal obesity. Stool for occult blood not presently indicated as the patient has known gastrointestinal (GI) bleed. LABORATORY WORK: 01/23/2020 was reviewed. WBC 5.1, hemoglobin 5.4, hematocrit 16.0, platelets 40. Laboratory work 01/24/2020 at 0526 hours shows WBC 3.4, hemoglobin 9.2, platelets 27. Laboratory work 01/24/2020 showed PT/INR of 1.32, fibrinogen elevated at 462, D-dimer elevated at 2131.94. Blood cultures times two from 01/23/2020 have been no growth at 24 hours. Clean catch urine specimen 01/23/2020 currently pending. Echocardiogram Doppler 01/23/2020 has been reported under a separate cover. It showed normal LV size and internal dimensions. Mild reduction in overall LV systolic function. LVEF 50% by visual estimate. Paradoxical septal motion involving the basal anteroseptal and basal inferoseptal segments. Moderate hypokinesis of the basal inferolateral segment. Normal wall motion and wall thickening elsewhere. Grade 1 LV diastolic dysfunction. Suggestive of moderate elevation of estimated RV systolic pressure. Mild TR. Prominent trabeculations in the right ventricle consistent with RVH. IVC plethora suggestive of elevated central venous pressure. Severe aortic valve sclerosis. No aortic stenosis or aortic regurgitation. Moderate mitral annular calcification. Mild mitral regurgitation. No mitral stenosis. No pericardial effusion. Electrocardiogram 01/23/2020 at 0219 hours shows sinus rhythm, 87 beats per minute, nonspecific ST-T abnormalities. Electrocardiogram 09/24/2019 at 2225 hours shows sinus rhythm with sinus arrhythmia, 74 beats per minute, nonspecific ST-T abnormalities. Electrocardiogram 01/24/2020 at 0743 hours shows sinus rhythm, RSR prime V1 (consider RV conduction delay), nonspecific ST-T abnormalities, consider true posterior myocardial infarct (age undetermined). Laboratory work with regards to troponin I values this hospitalization as follows: 0.38 (01/23/2020 at 1657 hours), 2.97 (01/23/2020 at 2059 hours), 3.54 (01/23/2020 at 2307 hours), 3.44 (01/24/2020 at 0530 hours). Laboratory work 01/23/2020 at 2059 hours showed CPK 41, CK-MB 5.0%, CK-MB 12.20. Laboratory work 01/24/2020 at 0530 hours shows sodium 138, potassium 3.7, chloride 100, CO2 29, BUN 17, creatinine 1.21, estimated GFR 45.7, glucose 154, calcium 7.6. ASSESSMENT AND RECOMMENDATIONS: 1. Rcm-GW-vmeockrcz myocardial infarction (NSTEMI). This patient's NSTEMI during this hospitalization was without anginal symptoms. It most likely was secondary to supply and demand mismatch secondary to severe anemia and transient fluid overload secondary to packed red blood cell (RBC) transfusions. She may well have some degree of underlying coronary artery disease to make the situation worse but I think it is highly unlikely to have been a primary NSTEMI. I think she is certainly deserving of an outpatient cardiac nuclear stress test. As I explained by telephone earlier today to Dr. Familia Russell when he spoke to me about the consultation request that given this patient's severe anemia (most likely gastrointestinal bleeding) with thrombocytopenia that it would not be appropriate at this time to be sending the patient to [place] for a cardiac catheterization +/- percutaneous coronary intervention and it would also be inappropriate to be placing the patient on aspirin, clopidogrel, or anticoagulation at this time. I recommend that this patient's cause of anemia be worked up and pursue any source of gastrointestinal (GI) bleeding. Dr. Leija who manages this patient as an outpatient will be taking over his cardiology service tomorrow morning and I will sign out to him to let Dr. Leija know that the patient is here in the hospital for him to followup as he sees fit. 2. Systemic hypertension. Blood pressure currently controlled. At present, she is maintained on furosemide 40 mg IV daily, isosorbide mononitrate 30 mg daily, lisinopril 2.5 mg daily, metoprolol tartrate 50 mg twice a day. At this point, I think it is reasonable to continue the furosemide IV and I will put in an order to stop the furosemide. Other antihypertensive medications are left unchanged. 3. Abnormal electrocardiograms. Electrocardiograms as documented above. I will leave it with Dr. Leija to decide on outpatient cardiac stress testing of his choosing. 4. Paroxysmal atrial fibrillation. The patient is in sinus rhythm now. She is maintained on flecainide and metoprolol tartrate. Eliquis is currently on hold. I agree with having Eliquis on hold for now in view of suspected GI bleeding. I will leave it with Dr. Leija to decide if and when he wishes to reinstitute anticoagulation. Another potential option down the road for this patient would be for a Watchmen left atrial appendage closure device and I will also leave that long-term decision with Dr. Leija.
[2020-01-24 19:57] LABS: HEMATOCRIT 25.4 % (36.0-47.0); HEMOGLOBIN 8.7 g/dl (12.0-15.5); MEAN CORPUSCULAR HEMOGLOBIN 30.1 pg (27.0-33.0); MEAN CORPUSCULAR HGB CONC 34.3 g/dl (32.0-36.5); MEAN CORPUSCULAR VOLUME 87.9 fl (80.0-96.0); RED BLOOD COUNT 2.89 10^6/uL (4.00-5.40); WHITE BLOOD COUNT 3.5 10^3/uL (4.0-10.0)
[2020-01-24 20:03] LABS: PLATELET COUNT, AUTOMATED 24 10^3/uL (150-450)
[2020-01-24] MEDS: MIRALAX *UNIT DOSE* 17GM PACKET PO SCH (21:00)
[2020-01-24 21:05] LABS: LYMPHOCYTES 54 % (16-44); MONOCYTES 4 % (0-5); NEUTROPHILS 42 % (28-66); PLATELET ESTIMATE MARKED DECREASE (NORMAL)
--- NOTE | 2020-01-24 22:41 | CR.PDOC ---
General Date of Consultation: Jan 24, 2020 Referring Provider: VIRA RUSSELL DO Attending Physician: JACQUELIN APRKER MD Consultation Primary physician/ hospitalist: -Dr. Stephon Russell Reason for consult: -Anemia, suspected GI bleeding. HPI: 79-year-old female patient with HTN, DM type II, HLD, chronic back pain, hypothyroidism, atrial fibrillation on Eliquis, recent injections in her back for chronic back pain, presented to ER with complaints of diffuse abdominal pain and increased urinary frequency with generalized weakness. Patient also reported having nausea with 1 episode of dark stool few days prior to ER visit. Patient was noted to have UTI, sepsis, being treated with antibiotics. Patient was also noted to have severe anemia and GI was consulted for the same. Patient when examined reported having formed dark stools few days prior to ER visit and denies any overt external bleeding since then. Patient does report taking few OTC pain medications in the recent weeks. Patient reports having subjective fevers, some increased frequency and discomfort with urination. OFF note: During hospitalization, patient was noted to have chest discomfort, shortness of breath after initiation of blood transfusion and subsequent evaluation showed EKG changes and positive troponins. Patient was evaluated by cardiology and impression was NSTEMI. Pertinent negative GI symptoms: Patient denies fever, sick contacts, recent travel, vomiting, diarrhea, loss of appetite, early satiety or unintentional weight loss. No history of hematemesis, or hematochezia. Patient also denies any skin rash. Review of Systems: GI: as stated above CVS: No chest pain, No palpitations, No leg swelling. RS: No Shortness of breath, No Wheezing, no cough GAS BRAZER: No dizziness, No motor weakness, No sensory problems Hematology: No bruising, No gum bleeding, Musculoskeletal: No joint pain, ambulating well. Skin: No rash : as per HPI ENT: No ear discharge/ pain, No dysphagia. Eyes: No photophobia. Jaundice Home medications: reviewed. Antithrombotic agents: On Eliquis Medical h/o: As above. Surgical h/o: prior appendectomy ( many years ago). Patient had loop recorder implanted. Social h/o: Alcohol: Denies , smoking: Denies, IVDA/ drugs: denies . Family h/o of GI cancers - None Prior Endoscopies: Patient reports having EGD and colonoscopy in the past in [place], no reports available. Normal as per patient. Prior GI evaluations: -None in [facility] Exam: Vitals: reviewed General: Alert and oriented x 3, not in acute distress HEENT: Mild pallor, no icterus. Normal oropharynx, NO cervical lymph nodes. Chest: symmetric with bilateral clear air entry, CVS: S1, S2 heard, normal, no murmurs . Abdomen: non-distended, no surgical scars, soft, non-tender, no palpable masses, normal bowel sounds heard. Rectal exam: Patient refused / Deferred at this time in view of scheduled colonoscopy. Extremities: no pedal edema, pulses palpable. GAS BRAZER: no focal motor or sensory deficits. Moves all extremities Skin: no rash. Labs: reviewed. Imaging: reviewed. Impression: -- Acute drop in hemoglobin and hematocrit with one episode darks tools and prior NSAID and Anticoagulant use, -- DDx- Need to rule out Upper GI bleeding from PUD ( NSAID use related) vs rule out AVMs, vs low GI bleeding from Diverticular bleeding vs Colon polyps. -- Acute onset pancytopenia with severe thrombocytopenia, negative hemolytic work up, DDx-- rule out other hematologic disorders vs parvovirus infection vs sepsis related. -- UTI and NSTEMI -- management as per primary team. Recommendations: - Patient educated about the test results, possible differential diagnoses and All questions answered. - In view of suspected PUD from recent NSAID use, please place the patient on IV pantoprazole 40 gm twice daily for 24- 48 hours and then switch to oral Pa ntoprazole 40 mg twice daily. - Avoid NSAIDs - management of UTI sepsis and NSTEMI as per primary team - Monitor hemoglobin and hematocrit and transfuse as needed to hemoglobin level of around 9gm/dL. - In view of acute NSTEMI and due to pancytopenia the risks and benefits of anticoagulants were discussed in detail with patient. As there is no over active GI bleeding at this time, the GI risk of bleeding is lower the benefits and can consider anticoagulants as per cardiology. - Pancytopenia evaluation by hematology. - Based on the clinical course and after stabilization of acute issues will c onsider elective EGD and Colonoscopy. The procedures, indications, risks (bleeding, perforation, infection, hypotension, respiratory depression, allergy, need for endotracheal intubation, surgery, colostomy, cardiac arrest, even ), benefits, limitations (e.g., missing a lesion), and all other a lternatives (including no intervention) were explained to the patient who understood and agreed for the procedures. Plan of care discussed with patient and primary team. Patient verbalized understanding and agreed with the plan. Vital Signs/I&O Vital Signs Date Time Temp Pulse Resp B/P (MAP) Pulse Ox O2 Delivery O2 Flow Rate FiO2 01/24/20 22:33 18 109/60 01/24/20 20:00 96.8 69 95 Room Air 01/24/20 07:34 2.0 I&O- Last 24 Hours up to 6 AM 01/24/20 06:00 Intake Total 1972 ml Output Total 1650 ml Balance 322 ml Laboratory Data Labs 24H Laboratory Tests 2 01/23/20 23:07: Troponin I 3.54*H 01/24/20 00:34: Bedside Glucose (Misc Panel) 226H 01/24/20 05:13: Bedside Glucose (Misc Panel) 154H 01/24/20 05:26: Nucleated Red Blood Cells % (auto) 0.0, Immature Platelet Fraction 4.9 01/24/20 05:30: Anion Gap 9, Glomerular Filtration Rate 45.7, Calcium Level 7.6L, Magnesium Level 1.9, Troponin I 3.44*H, SP-Xpm-Q-Type Natriuretic Peptide [id number] 01/24/20 08:24: Prothrombin Time 16.4H, Prothromb Time International Ratio 1.35, Activated Partial Thromboplast Time 33.2, Fibrinogen 462H, D-Dimer, Quantitative 2131.94H 01/24/20 12:06: Bedside Glucose (Misc Panel) 150H 01/24/20 12:18: 01/24/20 14:29: Neutrophils (%) (Auto) , Nucleated Red Blood Cells % (auto) 0.6H, Neutrophils 53, Lymphocytes (Manual) 37, Monocytes (Manual) 9H, Atypical Lymphocytes 1, Ovalocytes 1+, Platelet Estimate MARKED DECREASE, Total Creatine Kinase 31, Creatine Kinase MB 2.9, Creatine Kinase MB Relative Index 9.35H, Troponin I 2.12#*H 01/24/20 17:06: Bedside Glucose (Misc Panel) 186H 01/24/20 19:47: Neutrophils (%) (Auto) , Nucleated Red Blood Cells % (auto) 0.6H, Neutrophils 42, Lymphocytes (Manual) 54H, Monocytes (Manual) 4, Platelet Estimate MARKED DECREASE 01/24/20 20:43: Bedside Glucose (Misc Panel) 188H CBC/BMP Laboratory Tests 01/24/20 05:26 01/24/20 05:30 01/24/20 08:24 01/24/20 14:29 01/24/20 19:47 Microbiology Microbiology 01/23/20 Urine Culture, Received Pending 01/23/20 Blood Culture - Preliminary, Resulted No growth after 24 hours . All specim... 01/23/20 Blood Culture - Preliminary, Resulted No growth after 24 hours . All specim... Allergies Coded Allergies: Sulfa (Sulfonamide Antibiotics) (Verified Allergy, Intermediate, HIVES, 04/29/19) Home Medications Scheduled Apixaban (Eliquis) 5 Mg Tablet, 5 MG PO BID, (Reported) 2ND DOSE AT 1730 Citalopram Hydrobromide (Citalopram HBr) 10 Mg Tab, 10 MG PO DAILY, (Reported) Flecainide Acetate (Flecainide Acetate) 50 Mg Tablet, 50 MG PO BID, (Reported) 2ND DOSE AT 1730 Isosorbide Mononitrate (Isosorbide Mononitrate ER) 30 Mg Tab.er.24h, 30 MG PO DAILY, (Reported) Levothyroxine Sodium (Synthroid) 100 Mcg Tablet, 100 MCG PO DAILY, (Reported) Lisinopril (Lisinopril) 5 Mg Tablet, 2.5 MG PO DAILY, (Reported) Metformin HCl (Metformin HCl) 500 Mg Tab, 1,000 MG PO BID, (Reported) 2ND DOSE AT 1730 Metoprolol Tartrate (Metoprolol Tartrate) 50 Mg Tablet, 50 MG PO BID, (Reported) 2ND DOSE AT 1730 Potassium Chloride (Potassium Chloride) 10 Meq Tablet.er, 10 MEQ PO BID, (Reported) Quetiapine Fumarate (Quetiapine Fumarate) 50 Mg Tab, 50 MG PO TID, (Reported) 0530, 1200, 1700 Scheduled PRN Hydromorphone HCl (Hydromorphone HCl) 2 Mg Tablet, 2 MG PO QID PRN for PAIN, (Reported) Naproxen Sodium (Aleve) 220 Mg Capsule, 220 MG PO BID PRN for PAIN, (Reported) Tizanidine HCl (Tizanidine HCl) 2 Mg Tablet, 2 MG PO QID PRN for MUSCLE SPASMS, (Reported) JACQUELIN PARKER MD Jan 24, 2020 22:41
[2020-01-25] VITALS: BP 119/59
[2020-01-25 02:08] LABS: HEMATOCRIT 25.9 % (36.0-47.0); HEMOGLOBIN 8.7 g/dl (12.0-15.5); MEAN CORPUSCULAR HEMOGLOBIN 29.5 pg (27.0-33.0); MEAN CORPUSCULAR HGB CONC 33.6 g/dl (32.0-36.5); MEAN CORPUSCULAR VOLUME 87.8 fl (80.0-96.0); RED BLOOD COUNT 2.95 10^6/uL (4.00-5.40)
[2020-01-25 02:10] LABS: PLATELET COUNT, AUTOMATED 24 10^3/uL (150-450)
[2020-01-25 02:44] LABS: ATYPICAL LYMPH 3 % (0-5); EOSINOPHILS 2 % (0-3); LYMPHOCYTES 53 % (16-44); MONOCYTES 6 % (0-5); NEUTROPHILS 36 % (28-66); PLATELET ESTIMATE MARKED DECREASE (NORMAL)
[2020-01-25 02:45] LABS: ANISOCYTOSIS 1+
[2020-01-25 04:00] VITALS: BP 144/63
[2020-01-25] MEDS: MORPHINE 2 MG/ML 1ML VIAL (J2270) IV PRN ×3 (04:59→22:22)
[2020-01-25] MEDS: QUEtiapine FUMARATE 50 MG TAB PO SCH ×3 (05:00→17:04)
[2020-01-25 05:24] LABS: HEMATOCRIT 26.6 % (36.0-47.0); MEAN CORPUSCULAR HEMOGLOBIN 29.7 pg (27.0-33.0); MEAN CORPUSCULAR HGB CONC 33.8 g/dl (32.0-36.5); MEAN CORPUSCULAR VOLUME 87.8 fl (80.0-96.0); RED BLOOD COUNT 3.03 10^6/uL (4.00-5.40); WHITE BLOOD COUNT 3.8 10^3/uL (4.0-10.0)
[2020-01-25 05:28] LABS: PLATELET COUNT, AUTOMATED 24 10^3/uL (150-450)
[2020-01-25 05:45] LABS: BILIRUBIN,TOTAL 0.6 MG/DL (0.2-1.0); CALCIUM LEVEL 7.9 MG/DL (8.8-10.2); CREATININE FOR GFR 0.97 MG/DL (0.55-1.30); MAGNESIUM LEVEL 1.8 MG/DL (1.8-2.4); POTASSIUM SERUM 3.8 MEQ/L (3.5-5.1); TOTAL PROTEIN 6.3 GM/DL (6.4-8.2)
[2020-01-25 05:54] LABS: ATYPICAL LYMPH 3 % (0-5); LYMPHOCYTES 41 % (16-44); MONOCYTES 4 % (0-5); NEUTROPHILS 51 % (28-66); PLATELET ESTIMATE MARKED DECREASE (NORMAL)
[2020-01-25 05:55] LABS: ANISOCYTOSIS 1+
[2020-01-25] MEDS ORDERED: LevoFLOXacin 500 MG TABLET PO ONE (06:00)
[2020-01-25 08:00] VITALS: BP 144/63
[2020-01-25] MEDS: FUROSEMIDE 40MG/4ML VIAL (J1940) IV SCH ×2 (08:02→17:05)
[2020-01-25] MEDS: PANTOPRAZOLE 40MG VIAL (C9113 PER 1) IV SCH ×2 (08:02→20:11)
[2020-01-25] MEDS: POTASSIUM CHLORIDE 10 MEQ SR TABLET PO SCH ×2 (08:03→20:10)
[2020-01-25] MEDS: HumaLOG INSULIN (NovoLOG) PER UNIT SC SCH ×4 (08:03→21:00)
[2020-01-25] MEDS: LEVOTHYROXINE 100MCG TABLET (0.1MG) PO SCH (08:03)
[2020-01-25] MEDS: METOPROLOL TART 50 MG TAB PO SCH ×2 (08:04→17:09)
[2020-01-25] MEDS: ISOSORBIDE MON. (IMDUR) 30 MG XR TAB PO SCH (08:05)
[2020-01-25] MEDS: lisinopriL 5 MG TAB PO SCH (08:05)
[2020-01-25] MEDS: MIRALAX *UNIT DOSE* 17GM PACKET PO SCH ×2 (08:06→20:10)
[2020-01-25] MEDS: HYDROmorphone 2 MG TAB PO PRN ×3 (08:09→20:11)
[2020-01-25] MEDS: cefTRIAXone SOD 1 GM in D5W MINI-BAG PLUS 50 ML IV SCH (09:36)
[2020-01-25] MEDS ORDERED: MORPHINE 2 MG/ML 1ML VIAL (J2270) IV ONE (10:00)
--- NOTE | 2020-01-25 11:43 | IPN ---
DATE: 01/25/2020 Ms. Pollard is seen and examined at the bedside this morning. She is complaining of lower back and hip pain. She is laying flat. Apparently, over the weekend, she after receiving her first unit of red blood cells for her gastrointestinal (GI) bleed, had a Xge-WD-thqodrnvj myocardial infarction NSTEMI. She was seen by Dr. Brooks but it was determined that she was not able to be put on antiplatelets or anticoagulation due to her GI bleed. Her platelets and her white blood cells remained low throughout the weekend. Looking back at the trend from previous, her last known normal platelets and white blood cells back in September of this year. Today, she has no complaints. She denies any chest pain, shortness of breath, lightheadedness, dizziness, nauseas or vomiting. She states that her belly does hurt. She was previously nothing by mouth but she ate her first meal last night and she tolerated it well. She denies any diarrhea or any further bloody stools but does report that she is constipated. She also reports that she has pain in her bladder from her cystitis. OBJECTIVE: VITALs: Temperature 97.7, pulse 70, respiratory rate 20, blood pressure 144/63, oxygen saturation 97% on room air. She is total net negative 550 mL. She urinated about 1750 mL overnight and her weight is 69.3 kg. Generally, she is laying flat in bed, calm, cooperative, in no acute distress appearing her stated age. HEENT: Extraocular movements are intact. Pupils equal, round and reactive to light. Her mucous membranes are dry. NECK: Supple with no thyromegaly. No lymphadenopathy. RESPIRATORY: She is clear to auscultation bilaterally with no adventitious breath sounds appreciated. CARDIOVASCULAR: She is regular rate and rhythm. No murmurs, rubs or gallops could be auscultated. ABDOMEN: Soft, but tender to deep palpation in both the right lower and left lower quadrants. Positive bowel sounds. No masses or organomegaly. EXTREMITIES: No clubbing, cyanosis or edema. PSYCHIATRIC: Awake, alert, and oriented times three. Normal mood and normal affect. NEURO: No focal deficits could be appreciated. SKIN: Warm and well perfused with no rashes appreciated. LABS: Today her white blood cell count is 3.8, hemoglobin 9.0, hematocrit 26.6, platelet count 24. Chemistries demonstrate sodium 140, potassium 3.8, carbon dioxide 30, BUN 24, creatinine 0.97. Liver enzymes: AST 25, ALT 22. Her alkaline phosphatase is 47 and her LDH is 222. Troponins increased on 01/23/2020 at 2.97, peaked at 3.54 that day and have come down to most recently 2.12. She also had a fibrinogen drawn yesterday which was 462 and a D-dimer which was 2131. Fibrin degradation products is pending for today. Microbiology: She has had E coli growing in her urine which is sensitive for everything. It looks as though she had three units transfused over the weekend of packed red blood cells (PRBCs). Peripheral smear is also pending. She did have a CT angiogram done of the chest yesterday which showed no CT evidence of pulmonary embolus (PE). Mild diffuse alveolar edema pattern with cardiomegaly and small right pleural effusion questionable of congestive heart failure. Otherwise, no active disease. ASSESSMENT: This is a 79-year-old female who presented to the emergency department (ED) with black tarry stools, weakness and shortness of breath. Found to have acute GI bleed and cystitis now complicated by leukocytopenia and thrombocytopenia, concerning for acute malignancy versus infection. Also found to have NSTEMI after blood transfusion. PLAN: At this time, we will continue holding her Eliquis and will not give her aspirin or Plavix for her NSTEMI given that she has history of GI bleed and her thrombocytopenia. In regards to her antibiotics, please be cautious with QTc prolonging agents as her QTc is already quite elevated at 501. It is to my knowledge that her further GI workup is on hold given that she has thrombocytopenia so she will be waiting to have a scope in the nearby future. In regards to her thrombocytopenia, this is most likely related to infection, although we would be expecting it to be going up with her antibiotics at this time. There is a possibility for acute malignancy which would be more unlikely given that her counts were relatively normal prior to this admission. We have stopped her Flecainide as it is contraindicated in coronary artery disease. Certainly, in the residential, after resolution of this GI bleed and the thrombocytopenia, she will need to be transferred to [place] for possible catheterization or at least to have locally a stress test. For now, we will watch and wait and see how her platelets do and her white blood cell counts improve and we will watch her closely. Addendum MD Satinder: I have seen and examined the patient with and we discussed management. She cannot get any antiplatelet agents or anticoagulants due to severe thrombocytopenia. Will stop flecainide due to non- STEMI (very likely type 2 MO). Management of infection as per primary team. It will be difficult to consider any further cardiac evaluation until platelet count recovers. JAMIED
[2020-01-25 12:00] VITALS: BP 142/80
--- NOTE | 2020-01-25 12:46 | IPNPDOC ---
Text Note Date of Service The patient was seen on 01/25/20. NOTE Subjective: No any acute events overnight. Patient stated that she doesn't have any chest pain, palpitations or breathing improved. She didn't notice any blood in the stool or in the urine Objective: PHYSICAL EXAMINATION: VITAL SIGNS: Please see below. GENERAL: In moderate distress HEENT: Normocephalic, atraumatic, moist mucous membranes NECK: Supple CARDIOVASCULAR EXAMINATION: S1, S2, no murmurs RESPIRATORY EXAMINATION: CTA ABDOMINAL EXAMINATION: Soft, diffuse tenderness to palpation over suprapubic area, no rebound or guarding, mildly distended, positive bowel sounds EXTREMITIES: Range of motion intact SKIN: No rash NEUROLOGICAL EXAMINATION: Alert and oriented 3, no focal deficits PSYCHIATRIC EXAMINATION: Anxious Assessment and plan Patient 79 years old female with past medical history of chronic back pain, atrial fibrillation, type 2 diabetes, hyperlipidemia presented to the hospital with acute anemia secondary to GI bleed. Acute respiratory failure On 01/23/20 during 3d unit of blood transfusion patient developed acute respiratory failure, she was placed to nonrebreather, there was concern for acute transfusion reaction, however patient did not have any wheezes, chills, fever or itchiness. Chest x-ray was done and showed CHF pattern with vascular c ongestion and interstitial edema. Most likely patient developed TACO. Patient received Lasix IV with good response. EKG did not show acute ischemic changes. However, patient complained of some chest discomfort, first troponin was increased to 0.3, subsequent troponin was peaked to 3.5 and then trended down to 3.4 at 5 a.m. Repeated EKG did not show acute ischemic changes -echo was done and showed Paradoxes of motion involving the basal anteroseptal and basal inferoseptal segments. Moderate hypokinesis of the basal inferolateral segment. With ejection fraction 50%. There is concern that patient developed non STEMI secondary to acute respiratory distress On 01/25/20 acute respiratory failure resolved Non-STEMI Most likely type 2 Patient is not candidate for anticoagulation therapy due to thrombocytopenia and recent GI bleed Troponin trended down Web Machine Tender recommended after initial stabilization stress test in the outpatient settings. Obviously patient is not candidate for anticoagulation therapy and aspirin due to low platelets count and high risk of GI bleed Thrombocytopenia Most likely patient developed thrombocytopenia secondary to GI bleed or infection. Pathology report showed Chronic normocytic anemia with acute onset thrombocytopenia, likely due to clinical history of GI bleed and acute infection. No schistocytes or features of TTP/DIC is noted CTA negative for PE Online User Experience Strategist recommended to transfuse if platelets count less than 15,000. Continue to monitor Transfusion associated circulatory overload Secondary to blood transfusion BNP elevated to 15,000 Continue Lasix IV Acute blood loss anemia Secondary to GI bleed Most likely secondary to NSAIDs and oral anticoagulation Continue with PPI IV Hemoglobin is stable H&H every [address] abdomen and pelvis negative for cholecystitis or biliary duct dilation. Acute cystitis Patient has dysuria and suprapubic tenderness UA showed pyuria Continue ceftriaxone Hypertension Continue home cardioprotective medications Paroxysmal atrial fibrillation Heart rate is under control Eliquis on hold Hypothyroidism Continue levothyroxine Chronic back pain Continue pain management Diabetes type 2 Diabetes diet Insulin sliding scale Thrombocytopenia Patient has chronic pancytopenia. Overnight platelet count dropped to 28. There is concern for DIC DIC showed increased d-dimer, INR We will proceed with CTA, patient developed PE during blood transfusion. We'll check FDP Appreciate/agree with software clerk consult Transfusion associated circulatory overload Secondary to blood transfusion We'll check BNP We'll continue Lasix IV Acute blood loss anemia Secondary to GI bleed Most likely secondary to NSAIDs and oral anticoagulation Continue with PPI IV Hemoglobin is stable H&H every [address] abdomen and pelvis negative for cholecystitis or biliary duct dilation. Acute cystitis Patient has dysuria and suprapubic tenderness UA showed pyuria Continue ceftriaxone Hypertension Continue home cardioprotective medications Paroxysmal atrial fibrillation Heart rate is under control Eliquis on hold Hypothyroidism Continue levothyroxine Chronic back pain Continue pain management Diabetes type 2 Diabetes diet Insulin sliding scale VS,Fishbone, I+O VS, Fishbone, I+O Laboratory Tests 01/24/20 14:29 01/24/20 19:47 01/25/20 01:57 01/25/20 04:42 Vital Signs Date Time Temp Pulse Resp B/P (MAP) Pulse Ox O2 Delivery O2 Flow Rate FiO2 01/25/20 12:00 97.5 85 18 142/80 (100) 95 Nasal Cannula 2.0 I&O- Last 24 Hours up to 6 AM 01/25/20 06:00 Intake Total 1550 ml Output Total 1500 ml Balance 50 ml VIRA LOPEZ DO Jan 25, 2020 12:46
[2020-01-25] MEDS ORDERED: SLF 3 ML SYR IV PRN (13:15)
[2020-01-25] MEDS: SLF 3 ML SYR IV SCH ×2 (13:19→22:22)
[2020-01-25 14:18] LABS: EOS % 0.6 % (0.0-3.0); HEMATOCRIT 30.5 % (36.0-47.0); HEMOGLOBIN 10.2 g/dl (12.0-15.5); LYMPH # 1.7 10^3/uL (1.5-5.0); LYMPH % 47.2 % (24.0-44.0); MEAN CORPUSCULAR HEMOGLOBIN 29.6 pg (27.0-33.0); MEAN CORPUSCULAR HGB CONC 33.4 g/dl (32.0-36.5); MEAN CORPUSCULAR VOLUME 88.4 fl (80.0-96.0); MONO # 0.4 10^3/uL (0.0-0.8); MONO % 11.3 % (0.0-5.0); NEUTROPHILS # 1.5 10^3/uL (1.5-8.5); NEUTROPHILS % 40.3 % (36.0-66.0); RED BLOOD COUNT 3.45 10^6/uL (4.00-5.40); WHITE BLOOD COUNT 3.6 10^3/uL (4.0-10.0)
[2020-01-25 14:20] LABS: PLATELET COUNT, AUTOMATED 26 10^3/uL (150-450)
[2020-01-25] MEDS ORDERED: METOPROLOL 5 MG/5 ML VIAL IV ONE ×2 (15:45→19:00)
[2020-01-25 16:00] VITALS: BP 123/69
[2020-01-25 20:00] VITALS: BP 116/58
[2020-01-25 20:26] LABS: EOS % 0.9 % (0.0-3.0); HEMATOCRIT 30.8 % (36.0-47.0); HEMOGLOBIN 10.5 g/dl (12.0-15.5); LYMPH # 2.3 10^3/uL (1.5-5.0); LYMPH % 53.9 % (24.0-44.0); MEAN CORPUSCULAR HEMOGLOBIN 29.9 pg (27.0-33.0); MEAN CORPUSCULAR HGB CONC 34.1 g/dl (32.0-36.5); MEAN CORPUSCULAR VOLUME 87.7 fl (80.0-96.0); MONO # 0.7 10^3/uL (0.0-0.8); NEUTROPHILS # 1.3 10^3/uL (1.5-8.5); NEUTROPHILS % 29.5 % (36.0-66.0); RED BLOOD COUNT 3.51 10^6/uL (4.00-5.40); WHITE BLOOD COUNT 4.3 10^3/uL (4.0-10.0)
[2020-01-25 20:28] LABS: PLATELET COUNT, AUTOMATED 29 10^3/uL (150-450)
[2020-01-26] VITALS (12 sets, daily range): BP systolic 90–130; BP diastolic 50–70
[2020-01-26 02:07] LABS: HEMATOCRIT 29.9 % (36.0-47.0); HEMOGLOBIN 9.9 g/dl (12.0-15.5); MEAN CORPUSCULAR HEMOGLOBIN 29.1 pg (27.0-33.0); MEAN CORPUSCULAR HGB CONC 33.1 g/dl (32.0-36.5); MEAN CORPUSCULAR VOLUME 87.9 fl (80.0-96.0); WHITE BLOOD COUNT 4.4 10^3/uL (4.0-10.0)
[2020-01-26 02:13] LABS: PLATELET COUNT, AUTOMATED 26 10^3/uL (150-450)
[2020-01-26] MEDS ORDERED: METOPROLOL 5 MG/5 ML VIAL IV STA ×2 (02:21→06:26)
[2020-01-26 02:47] LABS: CALCIUM LEVEL 8.1 MG/DL (8.8-10.2); CREATININE FOR GFR 1.12 MG/DL (0.55-1.30); MAGNESIUM LEVEL 1.6 MG/DL (1.8-2.4); POTASSIUM SERUM 3.7 MEQ/L (3.5-5.1); TROPONIN I 0.61 NG/ML (< 0.10)
[2020-01-26 02:53] LABS: ATYPICAL LYMPH 3 % (0-5); BASOPHILS 2 % (0-1); LYMPHOCYTES 59 % (16-44); MONOCYTES 11 % (0-5); NEUTROPHILS 25 % (28-66); PLATELET ESTIMATE MARKED DECREASE (NORMAL)
[2020-01-26 02:54] LABS: ANISOCYTOSIS 1+
[2020-01-26] MEDS: MORPHINE 2 MG/ML 1ML VIAL (J2270) IV PRN ×3 (04:38→20:16)
[2020-01-26] MEDS: QUEtiapine FUMARATE 50 MG TAB PO SCH ×3 (04:38→17:29)
[2020-01-26] MEDS: SLF 3 ML SYR IV SCH ×3 (04:39→20:18)
[2020-01-26] MEDS ORDERED: POTASSIUM CHLORIDE 10 MEQ SR TABLET PO ONE (05:30)
[2020-01-26] MEDS: MAG SULF 1GM/100ML (MAG RUN) 1 GM in IV 1 EA IV SCH ×3 (06:02→08:56)
[2020-01-26] MEDS: HYDROmorphone 2 MG TAB PO PRN (07:37)
[2020-01-26 08:25] LABS: HEMOGLOBIN 10.1 g/dl (12.0-15.5); MEAN CORPUSCULAR HEMOGLOBIN 29.4 pg (27.0-33.0); MEAN CORPUSCULAR HGB CONC 33.7 g/dl (32.0-36.5); MEAN CORPUSCULAR VOLUME 87.5 fl (80.0-96.0); RED BLOOD COUNT 3.43 10^6/uL (4.00-5.40); WHITE BLOOD COUNT 3.8 10^3/uL (4.0-10.0)
[2020-01-26 08:28] LABS: PLATELET COUNT, AUTOMATED 25 10^3/uL (150-450)
[2020-01-26] MEDS: LEVOTHYROXINE 100MCG TABLET (0.1MG) PO SCH (08:30)
[2020-01-26] MEDS: cefTRIAXone SOD 1 GM in D5W MINI-BAG PLUS 50 ML IV SCH (08:30)
[2020-01-26] MEDS: PANTOPRAZOLE 40MG VIAL (C9113 PER 1) IV SCH ×2 (08:30→20:17)
[2020-01-26] MEDS: FUROSEMIDE 40MG/4ML VIAL (J1940) IV SCH ×2 (08:30→17:30)
[2020-01-26] MEDS: POTASSIUM CHLORIDE 10 MEQ SR TABLET PO SCH ×2 (08:31→20:18)
[2020-01-26] MEDS: ISOSORBIDE MON. (IMDUR) 30 MG XR TAB PO SCH (08:32)
[2020-01-26] MEDS: lisinopriL 5 MG TAB PO SCH (08:32)
[2020-01-26] MEDS: HumaLOG INSULIN (NovoLOG) PER UNIT SC SCH ×4 (08:33→20:17)
[2020-01-26] MEDS: METOPROLOL TART 50 MG TAB PO SCH ×3 (08:38→17:30)
[2020-01-26] MEDS: MIRALAX *UNIT DOSE* 17GM PACKET PO SCH ×2 (08:38→20:18)
[2020-01-26 08:59] LABS: ALBUMIN 3.3 GM/DL (3.2-5.2); BILIRUBIN,TOTAL 0.9 MG/DL (0.2-1.0); CALCIUM LEVEL 8.1 MG/DL (8.8-10.2); CREATININE FOR GFR 1.01 MG/DL (0.55-1.30); GLOMERULAR FILTRATION RATE 56.3 (>39); MAGNESIUM LEVEL 2.8 MG/DL (1.8-2.4); POTASSIUM SERUM 4.2 MEQ/L (3.5-5.1); TOTAL PROTEIN 6.8 GM/DL (6.4-8.2); TROPONIN I 0.47 NG/ML (< 0.10)
[2020-01-26 09:30] LABS: ATYPICAL LYMPH 3 % (0-5); EOSINOPHILS 2 % (0-3); LYMPHOCYTES 51 % (16-44); MONOCYTES 11 % (0-5); NEUTROPHILS 33 % (28-66); PLATELET ESTIMATE MARKED DECREASE (NORMAL)
[2020-01-26 09:31] LABS: INR 1.14; PROTHROMBIN TIME 14.3 SECONDS (11.8-14.0)
[2020-01-26 09:32] LABS: ANISOCYTOSIS 1+
[2020-01-26 09:32] LABS: PARTIAL THROMBOPLASTIN TIME 29.7 SECONDS (25.0-38.4)
[2020-01-26 09:34] LABS: D-DIMER QUANT 1492.2 ng/ml (<500)
--- NOTE | 2020-01-26 09:40 | REP ---
Chest x-ray: Two views. History: Chest pain. Comparison chest x-ray: January 31, 2020. Findings: Heart size is improved and borderline. CT ratio today measures 45.8%. Pulmonary vascular congestion has resolved. The pleural angles are sharp. The pulmonary edema pattern is essentially resolved as well. There is still a little hazy opacity in the right upper lobe region. Impression: Marked improvement in CHF pattern since the January 23, 2020 study. No pleural effusion or new infiltrate. Heart near the upper range of normal in size. A loop recorder is visible. Electronically Signed by Vj Clark MD 01/26/2020 09:32 A
[2020-01-26 10:02] LABS: CK-MB VALUE MASS 1.2 NG/ML (<3.6); FREE THYROXINE INDEX 2.5 % (1.3-4.8); MB/CK RELATIVE INDEX 6.32 (< OR =4); THYROID STIMULATING HORMONE 4.52 uIU/ML (0.358-3.740)
--- NOTE | 2020-01-26 10:07 | IPNPDOC ---
Date Seen The patient was seen on 01/26/20. Progress Note orthostatic hypotension w complaints of dizziness plan-ns iv bolus 500ml, recheck orthostatic vitals q4hrs until resolved. VS, I&O, [facility]H, [facility] Vital Signs/I&O Vital Signs Date Time Temp Pulse Resp B/P (MAP) Pulse Ox O2 Delivery O2 Flow Rate FiO2 01/26/20 08:38 82 112/62 01/26/20 08:07 20 Room Air 01/26/20 08:00 97.9 97 01/26/20 00:00 2.0 I&O- Last 24 Hours up to 6 AM 01/26/20 06:00 Intake Total 1490 ml Output Total 2100 ml Balance -610 ml Laboratory Data 24H LABS Laboratory Tests 2 01/25/20 11:34: Bedside Glucose (Misc Panel) 153H 01/25/20 14:01: Immature Granulocyte % (Auto) 0.6, Neutrophils (%) (Auto) 40.3, Lymphocytes (%) (Auto) 47.2H, Monocytes (%) (Auto) 11.3H, Eosinophils (%) (Auto) 0.6, Basophils (%) (Auto) 0.0, Neutrophils # (Auto) 1.5, Lymphocytes # (Auto) 1.7, Monocytes # (Auto) 0.4, Eosinophils # (Auto) 0.0, Basophils # (Auto) 0.0, Nucleated Red Blood Cells % (auto) 0.0, Immature Platelet Fraction 4.5 01/25/20 16:48: Bedside Glucose (Misc Panel) 165H 01/25/20 20:07: Immature Granulocyte % (Auto) 0.7, Neutrophils (%) (Auto) 29.5L, Lymphocytes (%) (Auto) 53.9H, Monocytes (%) (Auto) 15.0H, Eosinophils (%) (Auto) 0.9, Basophils (%) (Auto) 0.0, Neutrophils # (Auto) 1.3L, Lymphocytes # (Auto) 2.3, Monocytes # (Auto) 0.7, Eosinophils # (Auto) 0.0, Basophils # (Auto) 0.0, Nucleated Red Blood Cells % (auto) 0.7H 01/25/20 20:28: Bedside Glucose (Misc Panel) 226H 01/26/20 01:53: Anion Gap 5L, Glomerular Filtration Rate 50.0, Calcium Level 8.1L, Magnesium Level 1.6L, Troponin I 0.61#H 01/26/20 01:58: Neutrophils (%) (Auto) , Nucleated Red Blood Cells % (auto) 0.0, Neutrophils 25L, Lymphocytes (Manual) 59H, Monocytes (Manual) 11H, Basophils (Manual) 2H, Atypical Lymphocytes 3, Anisocytosis 1+, Platelet Estimate MARKED DECREASE 01/26/20 05:18: Bedside Glucose (Misc Panel) 161H 01/26/20 08:01: Neutrophils (%) (Auto) , Nucleated Red Blood Cells % (auto) 0.0, Neutrophils 33, Lymphocytes (Manual) 51H, Monocytes (Manual) 11H, Eosinophils (Manual) 2, Atypical Lymphocytes 3, Anisocytosis 1+, Platelet Estimate MARKED DECREASE, Differential Slide Review Report, Peripheral Blood Smear Path Consult PERIPHERAL SMEAR, Anion Gap 9, Glomerular Filtration Rate 56.3, Calcium Level 8.1L, Magnesium Level 2.8H, Total Bilirubin 0.9, Aspartate Amino Transf (AST/SGOT) 27, Alanine Aminotransferase (ALT/SGPT) 23, Alkaline Phosphatase 54, Total Creatine Kinase 19L, Creatine Kinase MB 1.2, Creatine Kinase MB Relative Index 6.32H, Troponin I 0.47#H, Total Protein 6.8, Albumin 3.3, Albumin/Globulin Ratio 0.9L, Thyroid Stimulating Hormone (TSH) 4.520H, Free Thyroxine Index 2.5, Thyroxine (T4) 7.0, Triiodothyronine (T3) Uptake 35 01/26/20 08:31: Prothrombin Time 14.3H, Prothromb Time International Ratio 1.14, Activated Partial Thromboplast Time 29.7, Fibrinogen 480H, D-Dimer, Quantitative 1492.20H CBC/BMP Laboratory Tests 01/25/20 14:01 01/25/20 20:07 01/26/20 01:53 01/26/20 01:58 01/26/20 08:01 01/26/20 08:31 Microbiology Microbiology 01/23/20 Urine Culture - Final, Complete Escherichia Coli 01/23/20 Blood Culture - Preliminary, Resulted No Growth after 72 hours. All specime... 01/23/20 Blood Culture - Preliminary, Resulted No Growth after 72 hours. All specime... RUBY KEY MD 23, 2020 10:07
[2020-01-26] MEDS ORDERED: NS 500 ML IV ONE ×2 (10:15→11:45)
--- NOTE | 2020-01-26 10:52 | IPN ---
DATE: 01/26/2020 Ms Pollard was seen and examined at the bedside this morning. She states that she is feeling somewhat better. Her abdomen is a lot less painful. She is still having pain in her hips and her lower back but this is chronic for her. Her platelets remain low at 26,000. Also yesterday evening, she went into atrial fibrillation, which she does have a history of paroxysmal atrial fibrillation. She was given metoprolol 5 mg times three. This morning, she is still in atrial fibrillation but her rate is much better controlled. Her highest rate in 24 hours was about 150. She did have some chest pain when she got up to go to the bathroom. She got an EKG done overnight which was essentially unchanged. Otherwise, she has no complaints this morning. Upon further questioning, she does report that she has lost about 20 pounds in the past 4 months and she was not trying to do so. She just had decreased appetite. She does occasionally have some nausea and vomiting. But to her knowledge when she was seeing her primary care, her labs were all within normal limits. OBJECTIVE: Vitals: Temperature 97.9, pulse 82, respiratory rate 18, blood pressure 112/62, pulse oximetry is 97% on room air. She has a net negative balance with almost 2000 mL of urine yesterday and her current weight is 67.8 kg. PHYSICAL EXAMINATION: Generally, she laying in bed, calm, cooperative. No acute distress. Appearing her stated age. HEENT: Extraocular movements are intact. Pupils equal, round, and reactive to light. Mucous membranes are moist. Neck is supple with no thyromegaly. No lymphadenopathy. Respiratory is clear to auscultation bilaterally with no adventitious breath sounds appreciated. Cardiovascular: She has an irregularly irregular rate and rhythm. No murmurs, rubs or gallops to be auscultated. Abdomen is soft, nontender to palpation. Positive bowel sounds. No masses or organomegaly. Extremities: No clubbing, cyanosis or edema. Psychiatric: Awake, alert and oriented times three. Normal mood and normal affect. Neurologic: No focal deficits could be appreciated. Skin: Warm and well-perfused with no rashes. LABS: Today a white blood cell count was found to be 3.8, hemoglobin 10.1, hematocrit 30, platelet count 25,000 and then later found to be 27,000. She also had chemistries done. Sodium was 135, potassium 4.2, chloride 97, carbon dioxide 29, BUN 23, and creatinine of 1.01. Magnesium was high at 2.8. Liver enzymes: AST 27, ALT 23, alkaline phosphatase 54. Her troponins early this morning around 2:00 a.m. was checked and was 0.61 and this morning has trended down to 0.47. She had PT/INR which is pending. Fibrinogen level is pending and a D-dimer is pending. A heparin-induced antibiotic is also pending. Microbiology: She has only grown E coli in her urine. She did have a peripheral smear done yesterday which showed chronic normocytic anemia with acute onset of thrombocytopenia likely due to clinical history of GI bleed and acute infection. No schistocytes or features of TTP or DIC is noted. Clinical correlation and followup is recommended. She has had no new imaging. ASSESSMENT: This a 79-year-old female who presented to the emergency department (ED) with black tarry stools, weakness and shortness of breath found to have acute gastrointestinal (GI) bleed with cystitis now complicated by leukocytopenia and thrombocytopenia concerning for acute malignancy versus infection. Her hospital course has been complicated by non-ST elevation myocardial infarction (NSTEMI) and now atrial fibrillation at this time. PLAN: Continue holding her Eliquis given her GI bleed. In regards to her atrial fibrillation, we have increased her metoprolol to 50 mg every 6 hours with hold parameters in place. We have stopped her flecainide as it can cause ventricular tachycardia (VT). Be very cautious with any new medications given that her QTC is quite prolonged. It is quite puzzling why she continues to have thrombocytopenia with no improvement from day to day. On the differential for this is possible GI malignancy, given that she has lost about 20 pounds in the past 4 months. Of course, this will need further workup with possible endoscopy or colonoscopy, which cannot be done due to her thrombocytopenia. We will await the DIC labs that were drawn this morning. But in regards to her cardiovascular function, she appears to be doing well. Her blood pressure is well controlled and this morning her heart rate is better controlled. No indication for antiarrhythmics at this time. We will continue to follow this patient very closely and will answer any questions as needed. Addendum MD Satinder: Patient was seen and examined with . Agree with the note above. MTDD
--- NOTE | 2020-01-26 15:02 | IPNPDOC ---
Date Seen The patient was evaluated on 01/26/20. Progress Note Hematology Peripheral smear evaluated on 01/24 shows small platelets consistent with myel osuppression from infection/acute illness D-dimer levels falling Hb holding Platelet count stable HIT antibodies pending E. Coli noted in urine LABORATORY DATA, IMAGING STUDIES, MICROBIOLOGY: Please see below. ASSESSMENT AND PLAN: Secondary thrombocytopenia with evidence of myelosuppression as participating cause as etiology suspected from infectious origin plus consumption from massive GI bleed. Could take more than 7-14 days to see meaningful recovery of platelet count Await HIT antibodies VS, I&O, 24H, Fishbone Vital Signs/I&O Vital Signs Date Time Temp Pulse Resp B/P (MAP) Pulse Ox O2 Delivery O2 Flow Rate FiO2 01/26/20 12:37 81 110/56 (74) 01/26/20 12:00 98.5 16 98 Nasal Cannula 2.0 I&O- Last 24 Hours up to 6 AM 01/26/20 06:00 Intake Total 1490 ml Output Total 2100 ml Balance -610 ml Laboratory Data 24H LABS Laboratory Tests 2 01/25/20 16:48: Bedside Glucose (Misc Panel) 165H 01/25/20 20:07: Immature Granulocyte % (Auto) 0.7, Neutrophils (%) (Auto) 29.5L, Lymphocytes (%) (Auto) 53.9H, Monocytes (%) (Auto) 15.0H, Eosinophils (%) (Auto) 0.9, Basophils (%) (Auto) 0.0, Neutrophils # (Auto) 1.3L, Lymphocytes # (Auto) 2.3, Monocytes # (Auto) 0.7, Eosinophils # (Auto) 0.0, Basophils # (Auto) 0.0, Nucleated Red Blood Cells % (auto) 0.7H 01/25/20 20:28: Bedside Glucose (Misc Panel) 226H 01/26/20 01:53: Anion Gap 5L, Glomerular Filtration Rate 50.0, Calcium Level 8.1L, Magnesium Level 1.6L, Troponin I 0.61#H 01/26/20 01:58: Neutrophils (%) (Auto) , Nucleated Red Blood Cells % (auto) 0.0, Neutrophils 25L, Lymphocytes (Manual) 59H, Monocytes (Manual) 11H, Basophils (Manual) 2H, Atypical Lymphocytes 3, Anisocytosis 1+, Platelet Estimate MARKED DECREASE 01/26/20 05:18: Bedside Glucose (Misc Panel) 161H 01/26/20 08:01: Neutrophils (%) (Auto) , Nucleated Red Blood Cells % (auto) 0.0, Neutrophils 33, Lymphocytes (Manual) 51H, Monocytes (Manual) 11H, Atypical Lymphocytes 3, Anisocytosis 1+, Platelet Estimate MARKED DECREASE, Eosinophils (Manual) 2, Anion Gap 9, Glomerular Filtration Rate 56.3, Calcium Level 8.1L, Magnesium Level 2.8H, Total Bilirubin 0.9, Aspartate Amino Transf (AST/SGOT) 27, Alanine Aminotransferase (ALT/SGPT) 23, Alkaline Phosphatase 54, Total Creatine Kinase 19L, Creatine Kinase MB 1.2, Creatine Kinase MB Relative Index 6.32H, Troponin I 0.47#H, Total Protein 6.8, Albumin 3.3, Albumin/Globulin Ratio 0.9L, Thyroid Stimulating Hormone (TSH) 4.520H, Free Thyroxine Index 2.5, Thyroxine (T4) 7.0, Triiodothyronine (T3) Uptake 35 01/26/20 08:31: Prothrombin Time 14.3H, Prothromb Time International Ratio 1.14, Activated Partial Thromboplast Time 29.7, Fibrinogen 480H, D-Dimer, Quantitative 1492.20H 01/26/20 11:38: Bedside Glucose (Misc Panel) 226H CBC/BMP Laboratory Tests 01/25/20 20:07 01/26/20 01:53 01/26/20 01:58 01/26/20 08:01 01/26/20 08:31 Microbiology Microbiology 01/23/20 Urine Culture - Final, Complete Escherichia Coli 01/23/20 Blood Culture - Preliminary, Resulted No Growth after 72 hours. All specime... 01/23/20 Blood Culture - Preliminary, Resulted No Growth after 72 hours. All specime... LEN NDIAYE MD Jan 26, 2020 15:02
--- NOTE | 2020-01-26 17:11 | IPN ---
DATE: 01/26/2020 Patient seen and examined at the bedside this morning. She complains of chest heaviness substernally, no radiation, without accompanying shortness of breath, diaphoresis, nausea, vomiting or feeling of impending doom. The patient says that it is there all the time. Cardiac markers have been trending downwards, currently with troponin of 0.61. Overnight she converted to atrial fibrillation, rate of 141 to 148, given IV metoprolol 5 mg. Currently still in atrial fibrillation, rate of 82. Anticoagulation could not be given due to severe thrombocytopenia, as well as gastrointestinal (GI) bleed. Temperature 97.9, pulse 82, respiratory rate 18, blood pressure 112/62, 97% on room air. Generally, awake, alert, oriented times three, answering questions appropriately. No respiratory distress or use of respiratory accessory muscles. Moist mucous membranes. Neck is supple. No jugular venous distention (JVD) or thyromegaly. Lungs are clear to auscultation. No wheezing, rales or rhonchi. Heart: S1, S2, irregularly irregular. Abdomen is soft, nontender, nondistended. Positive bowel sounds. Extremities: No cyanosis or clubbing. LABORATORY DATA: White count 3.8, hemoglobin 10, hematocrit 30, platelet count 25. Sodium 133, potassium 3.7, chloride 98, bicarbonate 30, BUN 25, creatinine 1.12, glucose 152, magnesium of 1.6. ASSESSMENT AND PLAN: A 79-year-old admitted on 01/23/2020 with history of atrial fibrillation, hypertension, diabetes, hyperlipidemia, chronic back pain, and hypothyroidism, admitted due to abdominal pain, was found to have one episode of melena 2 days prior to presentation with an admitting hemoglobin of 5.4 and was transfused three units of red blood cells (RBCs). The patient is also chronically thrombocytopenic with platelet count of 40 and in disseminated intravascular coagulation (DIC), seen by Dr. Olson who recommended no platelet transfusion until patient's platelet count is less than 15 to 20,000 and active bleeding. CURRENT ISSUES ARE FOLLOWS: 1. Type 2 non-ST elevation myocardial infarction. 2. Chronic atrial fibrillation. 3. Acute blood loss anemia secondary to GI bleed. 4. GI bled. 5. Symptomatic anemia. 6. Volume overload secondary to RBC transfusion with acute hypoxic respiratory failure. 7. Transfusion-associated circulatory overload due to blood transfusion, BNP of 15,000. 8. Acute cystitis. 9. Hypothyroidism. 10. Chronic back pain. 11. Type 2 diabetes. 12. Chronic pancytopenia. PLAN: Patient is continued on Lopressor 50 mg every 6 hours, Lasix 40 mg IV twice a day, ceftriaxone for cystitis, hypertension is controlled on isosorbide and lisinopril, continued on Synthroid for hypothyroidism, Protonix 40 mg IV twice a day. Defer to GI for any invasive testing. Due to complaints of recurrent chest discomfort, EKG has been repeated today. Patient is medically stable for medical-surgical transfer with telemetry. [facility]
[2020-01-27] MEDS: METOPROLOL TART 50 MG TAB PO SCH ×4 (00:04→17:36)
[2020-01-27] MEDS: HYDROmorphone 2 MG TAB PO PRN ×3 (00:04→17:34)
[2020-01-27] MEDS: MORPHINE 2 MG/ML 1ML VIAL (J2270) IV PRN ×2 (02:19→12:52)
[2020-01-27 04:00] VITALS: BP 140/65
[2020-01-27] MEDS: QUEtiapine FUMARATE 50 MG TAB PO SCH ×3 (05:32→17:33)
[2020-01-27] MEDS: SLF 3 ML SYR IV SCH ×3 (05:34→21:53)
[2020-01-27 05:56] LABS: ALBUMIN 3.3 GM/DL (3.2-5.2); ALT/SGPT 26 U/L (12-78); BILIRUBIN,TOTAL 0.9 MG/DL (0.2-1.0); BLOOD UREA NITROGEN 26 MG/DL (7-18); CALCIUM LEVEL 8.3 MG/DL (8.8-10.2); CARBON DIOXIDE LEVEL 30 MEQ/L (21-32); CHLORIDE LEVEL 99 MEQ/L (98-107); CREATININE FOR GFR 1.03 MG/DL (0.55-1.30); GLUCOSE, FASTING 141 MG/DL (70-100); MAGNESIUM LEVEL 2.1 MG/DL (1.8-2.4); POTASSIUM SERUM 4.4 MEQ/L (3.5-5.1); SODIUM LEVEL 133 MEQ/L (136-145); TOTAL PROTEIN 6.8 GM/DL (6.4-8.2)
[2020-01-27 08:00] VITALS: BP 102/60
[2020-01-27 08:02] LABS: HEMATOCRIT 26.6 % (36.0-47.0); MEAN CORPUSCULAR HEMOGLOBIN 29.8 pg (27.0-33.0); MEAN CORPUSCULAR HGB CONC 33.8 g/dl (32.0-36.5); MEAN CORPUSCULAR VOLUME 88.1 fl (80.0-96.0); RED BLOOD COUNT 3.02 10^6/uL (4.00-5.40); WHITE BLOOD COUNT 4.1 10^3/uL (4.0-10.0)
[2020-01-27 08:02] LABS: CK-MB VALUE MASS < 1.0 NG/ML (<3.6); CPK CREATINE PHOSPHOKINASE 17 U/L (26-192); MB/CK RELATIVE INDEX 5.88 (< OR =4); NT-PRO BNP 657 PG/ML (<450); TROPONIN I 0.29 NG/ML (< 0.10)
[2020-01-27 08:05] LABS: PLATELET COUNT, AUTOMATED 22 10^3/uL (150-450)
[2020-01-27] MEDS: HumaLOG INSULIN (NovoLOG) PER UNIT SC SCH ×4 (08:19→21:00)
[2020-01-27] MEDS: PANTOPRAZOLE 40MG VIAL (C9113 PER 1) IV SCH ×2 (08:20→21:52)
[2020-01-27] MEDS: LEVOTHYROXINE 100MCG TABLET (0.1MG) PO SCH (08:20)
[2020-01-27] MEDS: FUROSEMIDE 40MG/4ML VIAL (J1940) IV SCH ×2 (08:20→17:35)
[2020-01-27] MEDS: POTASSIUM CHLORIDE 10 MEQ SR TABLET PO SCH ×2 (08:21→21:52)
[2020-01-27] MEDS: lisinopriL 5 MG TAB PO SCH (08:21)
[2020-01-27] MEDS: cefTRIAXone SOD 1 GM in D5W MINI-BAG PLUS 50 ML IV SCH (08:21)
[2020-01-27] MEDS: MIRALAX *UNIT DOSE* 17GM PACKET PO SCH ×2 (08:21→21:00)
[2020-01-27] MEDS: ISOSORBIDE MON. (IMDUR) 30 MG XR TAB PO SCH (08:21)
[2020-01-27 09:30] VITALS: BP_SYST 114; BP_SYST 115; BP_SYST 119; BP_DIAS 60; BP_DIAS 61; BP_DIAS 63
[2020-01-27 12:00] VITALS: BP 109/60
--- NOTE | 2020-01-27 13:02 | IPN ---
DATE: 01/27/2020 Ms. Pollard is seen and examined at the bedside this morning. It appears that she has converted back to normal sinus rhythm, and her rates have been anywhere from in the 80s to low 90s overnight. She has no complaints this morning. She denies any chest pain or shortness of breath. She states that her abdominal pain has improved. She still has pain in her hip, which has not improved despite her medication. Her blood pressures have been within normal limits. She is not requiring any oxygen. All of her questions regarding her low platelets were answered. We did have a short discussion with Dr. Larson, her hospitalist, regarding the plan for today. Otherwise, the patient has no complaints, and no changes overnight were noted. OBJECTIVE: Her temperature is 97.4, pulse 89 and regular, respiratory rate is 18, blood pressure 109/60, pulse oximetry 95% on room air. She is net negative 400 mL with 2400 mL of urine output overnight. GENERAL: She is sitting up in bed. She is calm, cooperative. No acute distress. Appearing stated age. HEENT: Her extraocular movements are intact. Pupils are equally round and reactive to light. Mucous membranes are moist. Her neck is supple with no thyromegaly, no lymphadenopathy. PULMONARY: Her lungs are clear to auscultation bilaterally with no adventitious breath sounds appreciated. CARDIOVASCULAR: She is regular rate and rhythm with no murmurs, rubs, or gallops appreciated. ABDOMEN: Soft and nontender to palpation with positive bowel sounds. No masses or organomegaly. EXTREMITIES: She is has no clubbing, cyanosis, or edema. PSYCHIATRIC: She is awake, alert, and oriented times three with a normal mood and normal affect. NEUROLOGIC: She is no focal deficits appreciated. SKIN: Warm and well perfused with no rashes. LABORATORY DATA: Today, her white blood cell count is 4.1, hemoglobin is 9.0, hematocrit 26.6, and her platelet count has gone down to 22,000 from 27,000 yesterday. Chemistries: Sodium 133, potassium 4.4, chloride 99, BUN 26, and creatinine 1.03. Her magnesium level is 2.1. Her total bilirubin is 0.9. Liver enzymes are within normal limits. A cardiac panel was tested, and her troponin has gone down further from 0.47 to 0.29 today. A BNP was tested and was 657, and her TSH was checked and was elevated 4.52. Her PT was found to be elevated at 14.3. Her fibrinogen level went up from 462 to 480. A fibrin degradation products level is pending. Her D-dimer did go down to 1492 from 2130. She did have a chest x-ray done yesterday, which showed marked improvement in her congestive heart failure (CHF) pattern from the previous study. No pleural effusions and no new infiltrates. Her heart is in upper range of normal size, and a loop recorder is visible. ASSESSMENT: This is a 79-year-old female who presented to the emergency department (ED) with black, tarry stool, weakness, and shortness of breath, found to have acute gastrointestinal (GI) bleed with cystitis, now complicated by leukocytopenia and thrombocytopenia concerning for acute malignancy versus infection. Her hospital course has been complicated by an bam-AW-mpcfdsjeo myocardial infarction (NSTEMI) and now paroxysmal atrial fibrillation. PLAN: Continue to hold her Eliquis due to her gastrointestinal (GI) bleed and her thrombocytopenia. It seems as though the increase in her metoprolol yesterday to 50 mg every 6 hours has worked, and she is back in normal sinus rhythm this morning. The ongoing concern with her is that she continues to have thrombocytopenia, which is worse today. To my knowledge, she is being followed by oncology, who has drawn heparin-induced thrombocytopenia labs, even though she has not received any heparin on this hospitalization. Further along the line she may need a bone marrow biopsy to further study the etiology of this thrombocytopenia. I do believe disseminated intravascular coagulation (DIC) has been ruled out from the DIC labs that were drawn. Otherwise, in terms of her cardiovascular function, she appears to be doing well. Certainly after further workup has been completed, we may consider sending her for a stress test, but none of this can be done until we figure out her thrombocytopenia at this time. Otherwise, her blood pressures is well managed. We will continue to monitor this patient. We will answer any questions as needed.
[2020-01-27 15:24] VITALS: BP 126/60
--- NOTE | 2020-01-27 16:15 | IPN ---
DATE OF SERVICE: 01/27/2020 Yesterday, patient became lightheaded and dizzy and orthostatic. She had two bowel movements yesterday, black and had chest discomfort. Troponins were trending downwards. This morning no dizziness, lightheadedness, nausea or vomiting, or epigastric pain. No chest pain, trouble breathing. No recurrent bleeding from midnight onwards. Platelet count remains at 27,000. Waiting for the HIT panel, which is still pending. Temperature 97.5, pulse 72, respiratory rate 16, blood pressure 140/65, 98%on room air. Generally, awake, alert, oriented, answering questions appropriately. No conversational dyspnea. No jugular venous distention (JVD), thyromegaly, or cervical lymphadenopathy. Lungs: Diminished, bibasilar crackles. Heart: S1, S2, irregularly irregular. Abdomen is soft, nontender, nondistended. Positive bowel sounds. Extremities: Trace edema. LABORATORY DATA: White count 3.8, hemoglobin 10, hematocrit 30, platelet count of 25. 01/27/2020 CBC, metabolic panel still pending. Creatinine is 1.03. Cardiac buenrostro are pending. ASSESSMENT AND PLAN: This is a 79-year-old female admitted on 01/23/2020 with symptomatic anemia and abdominal pain, history of atrial fibrillation, hypertension, diabetes, hyperlipidemia, chronic back pain, and hypothyroidism, status post loop recorder and appendectomy was on Eliquis, Naprosyn as outpatient and was found to have symptomatic anemia, hemoglobin of 5.4, hematocrit of 16. The patient also had findings of cystitis initially treated with Cipro and Flagyl. Blood cultures are pending. Urine culture grew out Escherichia (E) coli, which was pansensitive. Current on ceftriaxone. ACUTE ISSUES: 1. Acute upper gastrointestinal (GI) bleed due to recent use of Eliquis and Naprosyn. Currently on Protonix 40 IV twice a day. Dr. Webb has been consulted. Due to recent non-ST elevation myocardial infarction (CO), congestive heart failure (CHF), evaluation has been postponed. 2. Non-ST elevation CO due to demand mediated ischemia from acute upper GI bleed with symptomatic anemia and GI blood loss. The patient is unable to be given any antiplatelets or anticoagulants due to low platelets, which is currently being investigated by manager nursing home/oncologist Dr. Olson. 3. Thrombocytopenia. Awaiting HIT panel. Per medical oncologist, it could take 7-14 days to see recovery of platelet count. Secondary thrombocytopenia most likely with myelosuppression due to urinary tract infection (UTI) consumption from the massive GI bleed. Per [facility], no platelet count transfusion unless patient is actively bleeding with platelet count of 15-20,000. 4. Cystitis. Currently on ceftriaxone. E coli is pansensitive. The patient has had no fever or chills. 5. Congestive heart failure with preserved systolic function, ejection fraction of 50%, grade 1 LV diastolic dysfunction with remove the normal systolic function with mild reduction in left ventricular systolic function, mild tricuspid regurgitation. The patient cannot be anticoagulated or given antiplatelets due to low platelet count, severe thrombocytopenia with active GI bleed. The patient will need a stress test as outpatient. 6. Atrial fibrillation (AFib). Currently rate controlled. Current rate is 104. Doing well on metoprolol 50 every 6, but did have episodes of orthostatic hypertension yesterday while on lasix, isosorbide and lisinopril. Defer to Dr. Leija for adjustment of medications. 7. Hypertension. The patient had orthostasis yesterday. On lisinopril, isosorbide and Lasix and metoprolol. Defer to Dr. Leija for adjustment of cardiac medications. 8. Type 2 diabetes. On insulin sliding scale, consistent carbohydrate diet. 9. Hypothyroidism. On chronic Synthroid. MTDD
[2020-01-27] MEDS ORDERED: SENOKOT S TAB PO PRN (18:15)
[2020-01-27] MEDS ORDERED: BISACODYL 5 MG TAB PO PRN (18:15)
[2020-01-27] MEDS ORDERED: oxyCODONE 5MG TAB PO ONE (18:15)
[2020-01-27] MEDS ORDERED: ISOVUE-370 76% 100ML VIAL As Ordered ONE (18:50)
--- NOTE | 2020-01-27 19:01 | REPVR ---
PROCEDURE INFORMATION: Exam: CT Angiography Abdomen and Pelvis With Contrast Exam date and time: 01/27/2020 6:41 PM Age: 79 years old Clinical indication: Abdominal pain; Generalized; Additional info: Afib not on ac abd pain R/O acute ischemia TECHNIQUE: Imaging protocol: Computed tomographic angiography of the abdomen and pelvis with intravenous contrast material. 3D rendering: MIP and/or 3D reconstructed images were created by the technologist. Radiation optimization: All CT scans at this facility use at least one of these dose optimization techniques: automated exposure control; mA and/or kV adjustment per patient size (includes targeted exams where dose is matched to clinical indication); or iterative reconstruction. Contrast material: ISOVUE 370; Contrast volume: 100 ml; Contrast route: INTRAVENOUS (IV); COMPARISON: CT ABD PELVIS W/O FOL BY WIT 01/23/2020 3:00 AM FINDINGS: Tubes, catheters and devices: Chun catheter within a collapsed urinary bladder. Aorta: The aorta demonstrates mild atherosclerotic calcification. Celiac trunk and mesenteric arteries: No occlusion or significant stenosis. Renal arteries: Mild atherosclerotic narrowing at the origin of the right renal artery without poststenotic dilatation. Right iliac arteries: No occlusion or significant stenosis. Left iliac arteries: No occlusion or significant stenosis. Liver: There is a diffuse decrease in hepatic parenchymal density, consistent with steatosis. Examination of the liver demonstrates a lobular surface contour, and enlargement of the left and caudate lobes, findings consistent with cirrhosis. Gallbladder and bile ducts: The gallbladder is incompletely distended. This is most likely related to incomplete fasting. Clinical correlation to exclude gallbladder pathology suggested. Pancreas: There is diffuse pancreatic atrophy. Spleen: Unremarkable. No splenomegaly. Adrenals: Unremarkable. No mass. Kidneys and ureters: Punctate nonobstructive calculi right kidney. Stomach and bowel: There is increased fluid demonstrated in the colon consistent with diarrhea. No mass demonstrated. Appendix: No evidence of appendicitis. Intraperitoneal space: Unremarkable. No free air. No significant fluid collection. Lymph nodes: Unremarkable. No enlarged lymph nodes. Bladder: Unremarkable. No mass. Reproductive: There has been a hysterectomy. Bones/joints: Moderate central spinal stenosis at L3-L4, severe central spinal stenosis at L4-L5 and moderate central spinal stenosis at L5-S1. Lumbarized 1st sacral segment. Status post ORIF left hip. Soft tissues: Left inguinal hernia without incarceration. IMPRESSION: 1. There is a diffuse decrease in hepatic parenchymal density, consistent with steatosis. 2. Examination of the liver demonstrates a lobular surface contour, and enlargement of the left and caudate lobes, findings consistent with cirrhosis. 3. The gallbladder is incompletely distended. This is most likely related to incomplete fasting. Clinical correlation to exclude gallbladder pathology suggested. 4. There is diffuse pancreatic atrophy. 5. Punctate nonobstructive calculi right kidney. 6. There has been a hysterectomy. 7. There is increased fluid demonstrated in the colon consistent with diarrhea. No mass demonstrated. Electronically signed by: Monroe Rooney On 01/27/2020 19:00:52 PM
[2020-01-27] MEDS ORDERED: oxyCODONE 15 MG CR TAB PO SCH (21:00)
[2020-01-27] MEDS: PHENAZOPYRIDINE 100 MG TAB PO SCH (21:53)
[2020-01-27 22:00] VITALS: BP 128/92
[2020-01-28] MEDS: METOPROLOL TART 50 MG TAB PO SCH ×4 (00:47→16:43)
[2020-01-28] MEDS: oxyCODONE 5MG TAB PO PRN ×2 (00:50→06:12)
[2020-01-28 01:45] VITALS: BP 137/85
[2020-01-28] MEDS ORDERED: MORPHINE 2 MG/ML 1ML VIAL (J2270) IV ONE (03:00)
[2020-01-28 06:00] VITALS: BP 130/60
[2020-01-28] MEDS: QUEtiapine FUMARATE 50 MG TAB PO SCH ×3 (06:11→17:54)
[2020-01-28] MEDS: SLF 3 ML SYR IV SCH ×3 (06:12→20:14)
[2020-01-28 08:20] LABS: CHOLESTEROL LEVEL 124 MG/DL (<200); CHOLESTEROL RISK RATIO 4.275 (<5); HDL CHOLESTEROL 29 MG/DL (>40); LDL CHOLESTEROL 73 MG/DL (<100); NON-HDL-C 95 MG/DL; TRIGLYCERIDES LEVEL 108 MG/DL (<150)
[2020-01-28 08:21] LABS: FERRITIN 664 NG/ML (8-252); IRON (FE) 197 UG/DL (50-170)
[2020-01-28 08:23] LABS: ALBUMIN 3.4 GM/DL (3.2-5.2); BILIRUBIN,TOTAL 0.7 MG/DL (0.2-1.0); CALCIUM LEVEL 8.5 MG/DL (8.8-10.2); CK-MB VALUE MASS 1.1 NG/ML (<3.6); CREATININE FOR GFR 1.17 MG/DL (0.55-1.30); GLOMERULAR FILTRATION RATE 47.5 (>39); MAGNESIUM LEVEL 1.9 MG/DL (1.8-2.4); MB/CK RELATIVE INDEX 6.47 (< OR =4); POTASSIUM SERUM 4.3 MEQ/L (3.5-5.1); TOTAL PROTEIN 6.9 GM/DL (6.4-8.2); TROPONIN I 0.22 NG/ML (< 0.10)
[2020-01-28] MEDS: MIRALAX *UNIT DOSE* 17GM PACKET PO SCH ×2 (09:00→20:14)
[2020-01-28 09:06] LABS: BASO % 0.2 % (0.0-1.0); EOS # 0.1 10^3/uL (0.0-0.5); EOS % 2.1 % (0.0-3.0); HEMATOCRIT 25.9 % (36.0-47.0); HEMOGLOBIN 8.8 g/dl (12.0-15.5); LYMPH # 2.8 10^3/uL (1.5-5.0); LYMPH % 57.9 % (24.0-44.0); MEAN CORPUSCULAR HEMOGLOBIN 29.9 pg (27.0-33.0); MEAN CORPUSCULAR VOLUME 88.1 fl (80.0-96.0); MONO # 0.6 10^3/uL (0.0-0.8); MONO % 12.6 % (0.0-5.0); NEUTROPHILS # 1.3 10^3/uL (1.5-8.5); RED BLOOD COUNT 2.94 10^6/uL (4.00-5.40); WHITE BLOOD COUNT 4.8 10^3/uL (4.0-10.0)
[2020-01-28 09:07] LABS: PLATELET COUNT, AUTOMATED 23 10^3/uL (150-450)
[2020-01-28] MEDS: HumaLOG INSULIN (NovoLOG) PER UNIT SC SCH ×4 (09:19→21:16)
[2020-01-28] MEDS: AUGMENTIN 875 MG TAB PO SCH ×2 (09:20→20:13)
[2020-01-28] MEDS: LACTOBACILLUS ACIDOPHILUS CAP (BACID) PO SCH ×4 (09:20→20:13)
[2020-01-28] MEDS: LEVOTHYROXINE 100MCG TABLET (0.1MG) PO SCH (09:20)
[2020-01-28] MEDS: PHENAZOPYRIDINE 100 MG TAB PO SCH ×3 (09:20→20:13)
[2020-01-28] MEDS: lisinopriL 5 MG TAB PO SCH (09:20)
[2020-01-28] MEDS: POTASSIUM CHLORIDE 10 MEQ SR TABLET PO SCH ×2 (09:20→20:13)
[2020-01-28] MEDS: PANTOPRAZOLE 40MG VIAL (C9113 PER 1) IV SCH ×2 (09:21→20:11)
[2020-01-28] MEDS: FUROSEMIDE 40MG/4ML VIAL (J1940) IV SCH ×2 (09:21→16:43)
[2020-01-28] MEDS: ISOSORBIDE MON. (IMDUR) 30 MG XR TAB PO SCH (09:21)
[2020-01-28] MEDS ORDERED: HYDROmorphone 2 MG TAB PO ONE (10:00)
[2020-01-28] MEDS ORDERED: tiZANidine 4 MG TAB PO ONE (10:00)
[2020-01-28] MEDS ORDERED: ACETAMINOPHEN 500 MG TAB PO ONE (10:45)
[2020-01-28] MEDS ORDERED: predniSONE 20 MG TAB PO ONE (10:45)
--- NOTE | 2020-01-28 10:48 | IPN ---
DATE: 01/28/2020 Ms. Pollard was seen and examined at the bedside this morning. Overnight, she did complain of some chest pressure and tightness. No pain. No shortness of breath. She did get a stat EKG done which was normal. Her troponins were checked, which were normal. Also she was given some morphine and she is feeling better this morning. She has no complaints other than some generalized abdominal pain. She does not have any palpitations or any other breathing issues. OBJECTIVE: VITALS: Temperature 98.1, pulse 82, respiratory rate 18, blood pressure 130/65, pulse oximetry 94% on room air. She has a net negative balance of 150 mL. She made 2325 mL of urine yesterday. GENERAL: She is laying in bed. She is calm, cooperative. No acute distress. Appearing stated age. Very pleasant. HEENT: Extraocular movements are intact. Pupils equal, round, and reactive to light. Mucous membranes are moist. NECK: Supple with no thyromegaly. No lymphadenopathy. PULMONARY: Her lungs are clear to auscultation bilaterally with no adventitious breath sounds appreciated. CARDIOVASCULAR: She is irregularly irregular with no murmurs, rubs ,or gallops appreciated. ABDOMEN: Soft, nontender to palpation with positive bowel sounds. No masses or organomegaly. EXTREMITIES: She has no clubbing, cyanosis or edema. PSYCHIATRIC: She is awake, alert, and oriented times three with normal mood and normal affect. NEUROLOGIC: She has no focal deficits appreciated. SKIN: Warm and well perfused with no rashes. LABS: Today white blood cell count 4.8, hemoglobin 8.8, hematocrit 25.9, platelet count 23,000 up from 22,000 yesterday. Chemistries: Sodium 135, potassium 4.3, carbon dioxide 28, BUN 31 and creatinine is 1.17. She did have an iron level drawn yesterday which was 197, ferritin 664. She has an AST 49, ALT 33. Her troponin went from 0.23 to 0.22 this morning. Her BNP is 519. Ceruloplasmin is pending. Her triglycerides are normal. Cholesterol and LDL is normal. HDL is low at 29. She did undergo a CT angiography of the abdomen yesterday which showed diffuse decrease in hepatic parenchymal density consistent with steatosis. Examination of the liver demonstrates a lobular surface contour and enlargement of the left and caudate lobes. Findings consistent with cirrhosis. The gallbladder is incompletely distended and this most likely related to incomplete fasting. Clinical correlation to exclude gallbladder pathology is suggested. There is a diffuse pancreatic atrophy punctate on nonobstructive calculi in the right kidney. There has been a hysterectomy and there is increased fluid demonstrated in the colon consistent with diarrhea. No mass is demonstrated. ASSESSMENT: This is a 79-year-old female who presented to the emergency department (ED) with black tarry stool, weakness and shortness of breath, found to have acute gastrointestinal (GI) bleed with gastritis, now complicated by leukocytopenia and thrombocytopenia concerning for acute malignancy versus consumptive process from infection. Her hospital course has been complicated by Raq-HI-siqtnukbj myocardial infarction (NSTEMI) and now paroxysmal atrial fibrillation. PLAN: We will continue to hold her Eliquis at this time due to her GI bleed. She seems to be well controlled with her metoprolol 50 every 6 hours. Although she is still in atrial fibrillation, her rate is sufficiently controlled. Again, the ongoing concern with her continues to be her thrombocytopenia, but per hematology/oncology note, this may take 7-14 days to recover. At that time, we can then entertain further workup for her GI bleed as well. Likely, this thrombocytopenia is secondary to her infection E coli in her urine. We have no other cardiovascular concerns at this time. In the outpatient setting, we will have her do a stress test but otherwise, no changes at this time. Will continue to monitor this patient closely. Feel free to ask us any questions as needed. Addendum MD Satinder: Patient was seen and examined with . Agree with her note. FELICIA
[2020-01-28 11:07] LABS: URIC ACID 8.5 MG/DL (2.6-6.0)
[2020-01-28] MEDS: ONDANSETRON 4MG/2ML VIAL IV PRN (12:22)
[2020-01-28] MEDS: HYDROmorphone 2 MG TAB PO SCH ×3 (12:24→20:12)
--- NOTE | 2020-01-28 12:24 | REP ---
LEFT FOOT SERIES: Four views. HISTORY: Left ankle pain FINDINGS: Four views of the left foot demonstrate mild diffuse osteopenia. There is vascular calcification. Mild osteoarthritic changes seen at the 1st MTP joint. No fracture or subluxation is noted. There is an accessory ossicle formation adjacent to the fibular tip. IMPRESSION: No acute bony abnormality. Vascular calcification and mild osteoarthritic changes. Accessory ossicle adjacent to the distal fibula. Electronically Signed by Vj Clark MD 01/28/2020 12:57 P
[2020-01-28 14:00] VITALS: BP 98/52
--- NOTE | 2020-01-28 17:52 | IPN ---
DATE: 01/28/2020 Patient complains of pain, bilateral lower quadrants, across the suprapubic area radiating to her back. She also complains of left ankle pain and says that her gout acts up and "feels like this." Pain is rated at 10/10 at the left ankle. No fevers or chills overnight. No recurrent gastrointestinal (GI) bleed. Denies hematemesis, bright red blood per rectum. VITAL SIGNS: Temperature 98.1, pulse 97, respiratory rate 16, blood pressure 130/65, 94% on room air. GENERAL: Patient is in some discomfort. She is cringing at the bedside, not moving her left ankle. No jugular venous distention (JVD) or thyromegaly. Anicteric sclerae. No jaundice. LUNGS: Diminished. Crackles at the bases. HEART: S1, S2, irregularly irregular. ABDOMEN: Soft, tender, bilateral lower quadrants/suprapubic area with costovertebral angle (CVA) tenderness. EXTREMITIES: No cyanosis, clubbing, or any pitting edema. Left ankle lateral area is edematous, tender with some erythema on the dorsal aspect of the foot. LABORATORY DATA: White count 4.8, hemoglobin 8.8, hematocrit 25.9, platelet count of 23. Sodium 135, potassium 4.2, chloride 98, bicarbonate 28, BUN 31, creatinine 1.17, glucose 131, calcium 8.5, uric acid is 8.5. AST 49, ALT 33, alkaline phosphatase 67. Total CK 17, MB fraction 6.4, and troponin 0.22. Albumin of 3.4. ASSESSMENT AND PLAN: 1. This is a 79-year-old female with history of atrial fibrillation, on chronic anticoagulation, hypertension, diabetes, hyperlipidemia, chronic back pain, hypothyroidism, presented due to abdominal pain and melena 2 days prior to presentation and found to have a hemoglobin of 5.4, transfused 3 units of red blood cells (RBC) with resultant improvement of hemoglobin to 10.1. Patient at that time was also found to be thrombocytopenic with platelet count of 40,000. Her Eliquis was discontinued. Medical oncologist felt that this was due to sepsis from a urinary tract infection found on admission as well as consumption from the recent gastrointestinal (GI) bleed. Her atrial fibrillation remains stable with ventricular rate ranging from 92-97 and 104. Patient could be anticoagulated for subsequent demand-mediated mzw-TV-vkuekynn myocardial infarction due to low platelet count. Evaluation with esophagogastroduodenoscopy (EGD) could not be performed, as the patient remains with atrial fibrillation with rapid ventricular response (RVR) and a jtk-UI-nytxxaztw myocardial infarction (OR) recently due to demand-mediated ischemia, type 2 OR. CURRENT ISSUES; 1. Acute GI bleed, most likely upper GI bleed with symptomatic anemia. Patient had an admission hemoglobin of 5.4, given 3 units of RBC transfusion with resultant increase to 10.1. Since admission, patient has not had any recurrent upper or lower GI bleed, but hemoglobin continues to trend downward to 8.8 and 25.9. Thrombocytopenia was thought to be secondary to consumption from the recent GI bleed as well as due to sepsis from the urinary tract infection. 2. Sepsis secondary to urinary tract infection. Urine culture showed Escherichia (E) coli, which is pansensitive. She had received 3 days of intravenous (IV) ceftriaxone without any fever or worsening white count. Patient is continued with Augmentin for 4 more days to complete a 7-day course. 3. Left ankle gout. Uric acid is elevated. Patient says that "It felt like this when I had it many, many years ago." Due to the inability to use any nonsteroidal anti-inflammatories due to recent GI bleed, acute blood loss anemia, and thrombocytopenia, patient will be given prednisone 20 mg short course due to recent huz-GX-cqkfinmmb OR. Per Dr. Leija, it is okay to give a short course of prednisone. 4. Anemia and thrombocytopenia. Per Dr. Alicia, this is a result of sepsis and consumption from the massive GI bleed. He was not concerned about possible myelodysplastic syndrome (MDS) and did not recommend bone marrow biopsy. Will continue to monitor for now but will refer to medical oncology for bone marrow biopsy as needed at some point. 5. Bilateral lower quadrant abdominal pain, evaluated yesterday for possible mesenteric ischemia in light of atrial fibrillation, not on anticoagulation. CT angiogram of the abdomen was negative for any acute ischemic symptoms; however, there were findings of cirrhosis and moderate stenosis. Liver had diffuse decrease in hepatic parenchymal density consistent with steatosis, demonstrating and lobular surface contour, enlargement of left and caudate lobes, findings consistent with cirrhosis. Lipid panel has been checked, hepatitis serology, antinuclear antibody (DYLAN), and ceruloplasmin ferritin. 6. Upt-AX-hlraewtod OR secondary to demand-mediated ischemia due to symptomatic anemia, type 2 Patient will need an outpatient stress test and potentially coronary angiogram once platelet count has improved. MTDD
--- NOTE | 2020-01-28 18:13 | ECGEPIP ---
[facility] Test Date: 2020-01-26 Pat Name: MARIAH BARAJAS Department: Room: [place] [address] Gender: Female [employer] Producer: JEFFREY : 1940 Requested By: CARLOTTA Holt Order Number: [id number] Reading MD: Santosh Hernandes Measurements Intervals [place] Rate: 115 P: MA: 0 QRS: 13 QRSD: 76 T: 33 QT: 335 QTc: 464 Interpretive Statements ATRIAL FLUTTER/TACHYCARDIA WITH RAPID VENTRICULAR RESPONSE LOW QRS VOLTAGE IN PRECORDIAL LEADS MODERATE ST DEPRESSION Compared to prior tracings in the system, last time patient was in atrial f fibrillation was on 09/22/18 Electronically Signed on 01-28-2020 18:13:29 EDT by Santosh Hernandes
--- NOTE | 2020-01-28 18:20 | ECGEPIP ---
[facility] Test Date: 2020-01-26 Pat Name: MARIAH BARAJAS Department: Room: [place] [address] Gender: Female Onsite Health Coach: ANGELICA : 1940 Requested By: RUBY Arita Order Number: [id number] Reading MD: Santosh Hernandes Measurements Intervals [place] Rate: 91 P: NM: 0 QRS: 19 QRSD: 76 T: 45 QT: 379 QTc: 469 Interpretive Statements ATRIAL FLUTTER WITH VARIABLE BLOCK MINIMAL ST DEPRESSION ABNORMAL RHYTHM ECG Last tracing on 01/26/20 AT 2:11. Heart rate is now slower Electronically Signed on 01-28-2020 18:19:58 EDT by Santosh Hernandes
[2020-01-28] MEDS: tiZANidine 4 MG TAB PO PRN (20:13)
[2020-01-28 21:00] VITALS: BP 84/46
[2020-01-28 22:16] VITALS: BP 80/40
[2020-01-28 23:25] VITALS: BP 81/42
[2020-01-29] VITALS (11 sets, daily range): BP systolic 93–120; BP diastolic 43–57
[2020-01-29] MEDS ORDERED: NS 500 ML IV ONE (00:30)
[2020-01-29 01:21] LABS: CALCIUM LEVEL 8.1 MG/DL (8.8-10.2); CREATININE FOR GFR 2.25 MG/DL (0.55-1.30); GLOMERULAR FILTRATION RATE 22.3 (>39); POTASSIUM SERUM 4.8 MEQ/L (3.5-5.1)
[2020-01-29] MEDS: METOPROLOL TART 50 MG TAB PO SCH ×4 (06:25→18:04)
[2020-01-29] MEDS: SLF 3 ML SYR IV SCH ×3 (06:25→20:40)
[2020-01-29] MEDS: QUEtiapine FUMARATE 50 MG TAB PO SCH ×3 (06:25→16:29)
[2020-01-29 06:52] LABS: ALBUMIN 3.1 GM/DL (3.2-5.2); BILIRUBIN,TOTAL 0.5 MG/DL (0.2-1.0); CALCIUM LEVEL 8.2 MG/DL (8.8-10.2); CREATININE FOR GFR 1.79 MG/DL (0.55-1.30); GLOMERULAR FILTRATION RATE 29.1 (>39); MAGNESIUM LEVEL 1.9 MG/DL (1.8-2.4); POTASSIUM SERUM 4.8 MEQ/L (3.5-5.1); TOTAL PROTEIN 6.4 GM/DL (6.4-8.2)
[2020-01-29] MEDS: PHENAZOPYRIDINE 100 MG TAB PO SCH ×2 (09:29→16:29)
[2020-01-29] MEDS: HYDROmorphone 2 MG TAB PO SCH ×4 (09:29→20:40)
[2020-01-29] MEDS: FUROSEMIDE 40MG/4ML VIAL (J1940) IV SCH (09:29)
[2020-01-29] MEDS: MIRALAX *UNIT DOSE* 17GM PACKET PO SCH ×2 (09:30→20:42)
[2020-01-29] MEDS: LACTOBACILLUS ACIDOPHILUS CAP (BACID) PO SCH ×4 (09:30→20:39)
[2020-01-29] MEDS: AUGMENTIN 875 MG TAB PO SCH ×2 (09:30→20:39)
[2020-01-29] MEDS: POTASSIUM CHLORIDE 10 MEQ SR TABLET PO SCH ×2 (09:30→20:39)
[2020-01-29] MEDS: PANTOPRAZOLE 40MG VIAL (C9113 PER 1) IV SCH ×2 (09:30→20:40)
[2020-01-29] MEDS: LEVOTHYROXINE 100MCG TABLET (0.1MG) PO SCH (09:30)
[2020-01-29] MEDS: predniSONE 20 MG TAB PO SCH (09:34)
[2020-01-29] MEDS: ISOSORBIDE MON. (IMDUR) 30 MG XR TAB PO SCH (09:35)
[2020-01-29] MEDS: HumaLOG INSULIN (NovoLOG) PER UNIT SC SCH ×4 (09:38→20:42)
--- NOTE | 2020-01-29 09:41 | IPN ---
DATE: 01/29/2020 Mrs. Pollard was starting to feel a little depressed. It has been while since she came to the hospital. Unfortunately, her platelet count remains low. She has a pinkish urine, but no other signs of active bleeding. Last night, she was a little hypotensive and received boluses of fluids. She denies any chest pain or shortness of breath. She continues to have pain in the abdomen and in her right hip. It is mostly in both inguinal areas and in the epigastric area. Vital Signs: Blood pressure 120/54. Last night, it got as low as 80/40. She is afebrile. Saturation is 94% on room air. Heart rate is 74 beats per minute. Fluid balance yesterday was slightly positive. It is recorded that she received 1200 mL of fluids, which probably is not terribly accurate, and that includes 500 mL of bolus she received at night. She made about 1200 mL of urine. Weight was not recorded this morning. She is alert, oriented and appropriate. Her jugular venous pulse (JVP) is not high. Lungs are clear with good air movement. Heart exam reveals irregular rhythm. I do not appreciate any gallop, rub or murmur. Heart rate is controlled. The abdomen is diffusely tender, but especially in the suprapubic areas and in both groins, more right than left. There is no guarding. I do not appreciate any obvious abnormalities on palpation other than tenderness. Extremities are free of edema. Neurologically she is intact. Laboratories; No CBC was drawn today. Basic metabolic panel reveals sodium 135, potassium 4.8, BUN 42, creatinine 1.8 for a GFR of 29 and glucose of 162. Microbiology: Confirmed E. Coli from January 22 on initial cultures. Blood cultures x2 have been negative after 5 days. ASSESSMENT AND PLAN: Mrs. Pollard is a 79-year-old female who has paroxysmal atrial fibrillation who came with gastrointestinal (GI) bleed. She was found to be quite severely thrombocytopenic. She was also on Eliquis for diagnosis of paroxysmal atrial fibrillation, the Eliquis was discontinued. She received 3 units of blood and so far her hemoglobin has been stable. There was no endoscopic evaluation due to severe thrombocytopenia. There was also argument made that she is high risk due to myocardial infarction (MS) because she had troponin elevation on admission, but because of her severe anemia it was almost certainly a type 2 MS and it certainly does not constitute contraindication for endoscopy. At this point, the vasquez problem remains thrombocytopenia. She did not have a CBC today, but as of yesterday there is no signs of turnaround. It is believed to be consumption due to her GI bleeding which has stopped though and also from potentially a urinary tract infection (UTI), but she has been afebrile and received antibiotics. I am hopeful that we will see a turnaround in a day. She had normal platelet count in September so underlying malignancy or mild dysplastic syndrome are less likely, even though she does report that she lost about 30 pounds in the last few months. The management of this issue remains with hematology. As far as management of atrial fibrillation is concerned, she seems to be reasonably well rate controlled on metoprolol 50 every 6 hours. She certainly cannot be anticoagulated due to underlying severe thrombocytopenia. As far as additional problems are concerned, she developed acute renal failure that was likely related to administration of dye for CT of the abdomen with IV contrast. It is improving. The second issue is the finding on CT indicates possibility of liver cirrhosis. The patient denies ever being a heavy alcohol drinker. She also was never severely obese so the potential etiology of liver cirrhosis remains mysterious. From my perspective, unfortunately, I do not have much to contribute here. We will be awaiting recovery of platelet function.
[2020-01-29 09:52] LABS: HEPATITIS B SURFACE ANTIGEN NEGATIVE (NEGATIVE)
[2020-01-29 10:19] LABS: HEPATITIS B CORE ANTIBODY IGM NEGATIVE (NEGATIVE); HEPATITIS C VIRUS ABY INDEX 0.3 INDEX (<0.8)
[2020-01-29 10:22] LABS: HEPATITIS A ANTIBODY IGM NEGATIVE (NEGATIVE)
[2020-01-29] MEDS: tiZANidine 4 MG TAB PO PRN ×2 (10:30→16:29)
--- NOTE | 2020-01-29 10:33 | REP ---
Chest x-ray: Two views. History: Short of breath and CHF. Comparison chest x-ray: January 26, 2020. Findings: Monitoring electrodes are seen. The lungs are well inflated and clear. A loop recorder is seen projecting in the left precordium. The heart is mildly prominent particularly on the lateral radiograph unchanged. Pleural angles are sharp. Pulmonary vasculature is not increased. The aorta is calcific. Impression: Prominent heart. Otherwise no acute disease. No pleural effusion is seen. A loop recorder is visible. Electronically Signed by Vj Clark MD 01/29/2020 10:24 A
--- NOTE | 2020-01-29 12:59 | IPNPDOC ---
Date Seen The patient was seen on 01/29/20. Progress Note EGD saturday per Dr. Webb. plan: npo after midnight on saturday [facility] Vital Signs/I&O Vital Signs Date Time Temp Pulse Resp B/P (MAP) Pulse Ox O2 Delivery O2 Flow Rate FiO2 01/29/20 12:49 96.4 79 17 105/53 95 Room Air 01/27/20 08:00 2.0 I&O- Last 24 Hours up to 6 AM 01/29/20 06:00 Intake Total 1460 ml Output Total 1150 ml Balance 310 ml Laboratory Data 24H LABS Laboratory Tests 2 01/28/20 17:29: Bedside Glucose (Misc Panel) 195H 01/28/20 20:37: Bedside Glucose (Misc Panel) 270H 01/29/20 00:49: Anion Gap 8, Glomerular Filtration Rate 22.3L, Calcium Level 8.1L 01/29/20 06:01: Anion Gap 9, Glomerular Filtration Rate 29.1L, Calcium Level 8.2L, Magnesium Level 1.9, Total Bilirubin 0.5, Aspartate Amino Transf (AST/SGOT) 36, Alanine Aminotransferase (ALT/SGPT) 30, Alkaline Phosphatase 53, Total Protein 6.4, Albumin 3.1L, Albumin/Globulin Ratio 0.9L 01/29/20 11:15: Urine Color PITA, Urine Appearance CLEAR, Urine pH 5.0, Urine Specific [place] 1.005, Urine Protein NEGATIVE, Urine Glucose (UA) NEGATIVE, Urine Ketones NEGA TIVE, Urine Blood 2+H, Urine Nitrite POSITIVEH, Urine Bilirubin NEGATIVE, Urine Urobilinogen 2.0H, Urine Leukocyte Esterase NEGATIVE, Urine WBC (Auto) 2, Urine RBC (Auto) 65H, Urine Hyaline Casts (Auto) 0, Urine Bacteria (Auto) 1+H, Urine Squamous Epithelial Cells 0, Urine Mucus (Auto) SMALL, Urine Sperm (Auto) 01/29/20 11:35: Bedside Glucose (Misc Panel) 162H CBC/BMP Laboratory Tests 01/29/20 00:49 01/29/20 06:01 Microbiology Microbiology 01/29/20 Urine Culture, Received Pending 01/23/20 Urine Culture - Final, Complete Escherichia Coli 01/23/20 Blood Culture - Final, Complete NO GROWTH AFTER 5 DAYS 01/23/20 Blood Culture - Final, Complete NO GROWTH AFTER 5 DAYS RUBY KEY MD Jan 29, 2020 12:59
[2020-01-29 17:07] LABS: ANTI-MITOCHONDRIAL ANTIBODY <20.0 Units (0.0-20.0); ANTINUCLEAR ANTIBODIES DIRECT Negative (Negative)
--- NOTE | 2020-01-29 17:07 | ECGEPIP ---
[facility] Test Date: 2020-01-28 Pat Name: MARIAH BARAJAS Department: Room: [place] [address] Gender: Female Goods Layer: : 1940 Requested By: VIRA LOPEZ Order Number: [id number] Reading MD: Santosh Hernandes Measurements Intervals [place] Rate: 89 P: 82 KS: 150 QRS: 22 QRSD: 78 T: 37 QT: 386 QTc: 471 Interpretive Statements SINUS RHYTHM WITH FREQUENT SUPRAVENTRICULAR AND VENTRICULAR PREMATURE COMPLEXES Compared to prior tracings(2) in the system, Atrial Fib/flutter was present ABNORMAL RHYTHM ECG Electronically Signed on 01-29-2020 17:07:05 EDT by Santosh Hernandes
--- NOTE | 2020-01-29 17:14 | IPNPDOC ---
Date Seen The patient was seen on 01/29/20. Progress Note Hematology Patient is resting in bed. Complaining about pain in the left toe. She is questioning if this is gout Recent melena noted PRBC transfusion given Reviewed peripheral smear Only small platelets were found No platelet clumping There is no evidence of ITP Bone marrow biopsy and aspiration not currently indicated as it will not change advisor at this time. Gastroenterology is proceeding with endoscopy early next week OBJECTIVE PHYSICAL EXAMINATION: VITAL SIGNS: Please see below. GENERAL: Alert and oriented 3, no acute distress HEENT: No thrush or petechiae CARDIOVASCULAR: irregular rhythm. I do not appreciate any gallop, rub ormurmur. Heart rate is controlled RESPIRATORY: bibasilar crackles otherwise clear ABDOMINAL: Diffuse tenderness noted EXTREMITIES: No significant edema LABORATORY DATA, IMAGING STUDIES, MICROBIOLOGY: Please see below. ASSESSMENT AND PLAN: Ongoing thrombocytopenia consistent with myelosuppression plus consumption. Clinical picture is not consistent with a primary production problem such as an underlying myelodysplastic syndrome with normal platelet count in September 2019. Furthermore there is no evidence of ITP based on evaluation of peripheral smear. This does remain a possibility however Patient has ongoing GI bleed and is planned for endoscopy on Saturday May proceed with 1 unit of platelets prior to procedure Would recommend one-hour post transfusion CBC. Would expect a rise in platelet count of 20-30,000. If there is no rise, then clinical picture would be more consistent with a destructive process such as ITP. Dr. Trujillo is covering this weekend and would be happy to answer any calls and address any issues VS, I&O, [facility] Vital Signs/I&O Vital Signs Date Time Temp Pulse Resp B/P (MAP) Pulse Ox O2 Delivery O2 Flow Rate FiO2 01/29/20 16:29 17 01/29/20 15:45 96.1 77 106/52 93 Room Air 01/27/20 08:00 2.0 I&O- Last 24 Hours up to 6 AM 01/29/20 06:00 Intake Total 1460 ml Output Total 1150 ml Balance 310 ml Laboratory Data 24H LABS Laboratory Tests 2 01/28/20 17:29: Bedside Glucose (Misc Panel) 195H 01/28/20 20:37: Bedside Glucose (Misc Panel) 270H 01/29/20 00:49: Anion Gap 8, Glomerular Filtration Rate 22.3L, Calcium Level 8.1L 01/29/20 06:01: Anion Gap 9, Glomerular Filtration Rate 29.1L, Calcium Level 8.2L, Magnesium Level 1.9, Total Bilirubin 0.5, Aspartate Amino Transf (AST/SGOT) 36, Alanine Aminotransferase (ALT/SGPT) 30, Alkaline Phosphatase 53, Total Protein 6.4, Albumin 3.1L, Albumin/Globulin Ratio 0.9L 01/29/20 11:15: Urine Color PITA, Urine Appearance CLEAR, Urine pH 5.0, Urine Specific [place] 1.005, Urine Protein NEGATIVE, Urine Glucose (UA) NEGATIVE, Urine Ketones NEGATIVE, Urine Blood 2+H, Urine Nitrite POSITIVEH, Urine Bilirubin NEGATIVE, Urine Urobilinogen 2.0H, Urine Leukocyte Esterase NEGATIVE, Urine WBC (Auto) 2, Urine RBC (Auto) 65H, Urine Hyaline Casts (Auto) 0, Urine Bacteria (Auto) 1+H, Urine Squamous Epithelial Cells 0, Urine Mucus (Auto) SMALL, Urine Sperm (Auto) 01/29/20 11:35: Bedside Glucose (Misc Panel) 162H 01/29/20 16:33: Bedside Glucose (Misc Panel) 214H CBC/BMP Laboratory Tests 01/29/20 00:49 01/29/20 06:01 Microbiology Microbiology 01/29/20 Urine Culture, Received Pending 01/23/20 Urine Culture - Final, Complete Escherichia Coli 01/23/20 Blood Culture - Final, Complete NO GROWTH AFTER 5 DAYS 01/23/20 Blood Culture - Final, Complete NO GROWTH AFTER 5 DAYS LNE NDIAYE MD Jan 29, 2020 17:14
[2020-01-30] MEDS: tiZANidine 4 MG TAB PO PRN ×4 (00:13→20:45)
[2020-01-30] MEDS: METOPROLOL TART 50 MG TAB PO SCH ×4 (00:15→17:39)
[2020-01-30] MEDS: QUEtiapine FUMARATE 50 MG TAB PO SCH ×3 (05:34→17:37)
[2020-01-30] MEDS: SLF 3 ML SYR IV SCH ×3 (05:36→20:47)
[2020-01-30 06:00] VITALS: BP 134/56
[2020-01-30 06:15] LABS: HEMATOCRIT 24.9 % (36.0-47.0); HEMOGLOBIN 8.4 g/dl (12.0-15.5); MEAN CORPUSCULAR HGB CONC 33.7 g/dl (32.0-36.5); MEAN CORPUSCULAR VOLUME 88.9 fl (80.0-96.0); WHITE BLOOD COUNT 4.1 10^3/uL (4.0-10.0)
[2020-01-30 06:17] LABS: PLATELET COUNT, AUTOMATED 24 10^3/uL (150-450)
[2020-01-30 06:41] LABS: ALBUMIN 3.1 GM/DL (3.2-5.2); CALCIUM LEVEL 8.7 MG/DL (8.8-10.2); CREATININE FOR GFR 1.02 MG/DL (0.55-1.30); GLOMERULAR FILTRATION RATE 55.7 (>39); MAGNESIUM LEVEL 2.1 MG/DL (1.8-2.4); POTASSIUM SERUM 4.5 MEQ/L (3.5-5.1); TOTAL PROTEIN 6.6 GM/DL (6.4-8.2)
[2020-01-30] MEDS: LEVOTHYROXINE 100MCG TABLET (0.1MG) PO SCH (08:55)
[2020-01-30] MEDS: MIRALAX *UNIT DOSE* 17GM PACKET PO SCH ×2 (08:55→20:44)
[2020-01-30] MEDS: LACTOBACILLUS ACIDOPHILUS CAP (BACID) PO SCH ×4 (08:56→20:44)
[2020-01-30] MEDS: predniSONE 20 MG TAB PO SCH (08:56)
[2020-01-30] MEDS: AUGMENTIN 875 MG TAB PO SCH ×2 (08:56→20:44)
[2020-01-30] MEDS: POTASSIUM CHLORIDE 10 MEQ SR TABLET PO SCH ×2 (08:56→20:45)
[2020-01-30] MEDS: ISOSORBIDE MON. (IMDUR) 30 MG XR TAB PO SCH (08:57)
[2020-01-30] MEDS: HYDROmorphone 2 MG TAB PO SCH ×4 (08:58→20:45)
[2020-01-30] MEDS: PANTOPRAZOLE 40MG VIAL (C9113 PER 1) IV SCH ×2 (08:59→20:44)
[2020-01-30] MEDS: HumaLOG INSULIN (NovoLOG) PER UNIT SC SCH ×4 (08:59→20:46)
--- NOTE | 2020-01-30 10:03 | IPN ---
DATE: 01/29/2020 Patient seen and examined at the bedside. Left ankle is still hurts but not as sensitive as it was before. Currently on prednisone. She continues to have some dysuria. Chun catheter for strict Input and output showed 1.2 liter out yesterday, 350 from midnight with orange urine from the Pyridium given for dysuria. The patient said that she continues to have black stools daily with her daily bowel movements. Hemoglobin is decreased at 8.8 from previous 10.1 after blood transfusions, three. Temperature 97, pulse 74, respiratory rate 17, blood pressure 120/57, 94% on room air. Generally awake, alert, oriented. No conversational dyspnea, jugular venous distention (JVD) or thyromegaly. Lungs are diminished but clear. Heart: S1, S2, irregularly, irregular. Abdomen is obese, soft, nondistended. Chun catheter in place with orange urine. The patient has bilateral lower lobe quadrant tenderness and suprapubic. Extremities: No pitting edema. LABORATORY DATA: ASSESSMENT/PLAN: 79-year-old female with chronic atrial fibrillation on chronic anticoagulation, hypertension, diabetes, hyperlipidemia and chronic back pain and hypothyroidism presented to the emergency room with complaints of abdominal pain and melena found to have a hemoglobin of 5.4, transfused 3 units leukocyte reduced red blood cells with improvement in hemoglobin to 10.1 At that time, she was also found to be thrombocytopenic with platelet count of 40,000. Her Eliquis had been discontinued. She was found to have thrombocytopenia which was secondary to urinary tract infection (UTI) sepsis as well as consumption from the recent gastrointestinal (GI) bleed. Atrial fibrillation remained stable. Could not be anticoagulated for the demembriated non-ST elevation myocardial infarction (PR) due to low platelet count. The patient had significant anemia most likely resulting in abnormal troponin. Esophagogastroduodenoscopy (EGD) had been postponed due to atrial fibrillation with rapid ventricular rate (RVR), non-ST elevation PR, diabetes mellitus type 2. Patient over the past 2 days had complained of gout pain in the left ankle evaluation with an x-ray, which was negative. Elevated uric acid treated with a short course of prednisone. She also had acute kidney injury due to complaint of suprapubic bilateral lower quadrant pain 3 days ago, evaluated with CT angio to rule out acute mesenteric ischemia since the patient had not been on anticoagulation for her atrial fibrillation and her pain was out of proportion to her clinical exam. CTA showed no acute emboli but patient developed contrast induced nephropathy in the setting of lisinopril, Lasix use. ACTIVE ISSUES: 1. Acute kidney injury secondary to contrast nephropathy in the setting of use of lisinopril and Lasix. Lasix and lisinopril have been discontinued. The patient is on IV fluids for now, creatinine is improved from 2.5 to 1.7. Await serial metabolic panel for creatinine check. 2. Acute GI bleed: Still complains of black stools daily. Hemoglobin is decreased after transfusion from 10 down to 8.8 currently. Patient will be transfused one more unit of leukocyte reduced red blood cells (RBC). Per Dr. Leija no acute contraindication to endoscopy in order to figure out why the patient is bleeding stabilize. She is currently on proton pump inhibitor (PPI) 40 IV twice a day. 3. Sepsis secondary to urinary tract infection with E coli which is alonso sensitive. Completed 3 days of IV ceftriaxone without any fever or worsening white count. Patient is on Augmentin to complete 4 more days for a total of 7-day course of antibiotics. 4. Left ankle gout: Patient is currently on prednisone with some improvement, still painful. She will continue the course of prednisone for now. 5. Non-ST elevation PR type 2 demembriated ischemia due to symptomatic anemia with hemoglobin of [address] Leija no acute contraindication to proceeding with endoscopy to proceeding with endoscopy to figure out where she is bleeding from. Patient could not be anticoagulated due to low platelet counts. 6. Thrombocytopenia secondary to sepsis from UTI as well as consumption for the GI bleed. Per Dr. Ashton, no need to transfuse platelets unless patient is actively bleeding with platelet count of 15-20,000. MTDD
[2020-01-30 14:00] VITALS: BP 121/67
--- NOTE | 2020-01-30 14:10 | IPN ---
DATE: 01/30/2020 Mrs. Pollard's condition has not appreciably changed. She remains in rate-controlled atrial fibrillation. She still continues to have diffuse pain, most prominent in her hip. She also believes that her stools are mostly dark. No recent chest pain. No shortness of breath. Vital signs: Blood pressure 143/58, heart rate in 60s. She is afebrile. Saturation 96% on room air. Fluid balance yesterday was recorded as positive 1800, weight has not been recorded. She had two bowel movements. She is alert and oriented appropriate. Her jugular venous pressure (JVP) is not high. Lungs are clear. Heart exam reveals irregularly irregular rhythm without appreciable gallop, rub or murmur. Abdomen is still a little tender in the low quadrants. No guarding. Extremities are free of edema. There is mild redness on the dorsum of her left foot that is receding. Neurologically she is intact. LABORATORY: CBC: WBC count 4.1, hemoglobin 8.4, hematocrit 24.9, platelet count 24,000. Basic metabolic panel: Sodium 135, potassium 4.5, BUN 33, creatinine 1.0, glucose 126. ASSESSMENT/PLAN: Mrs. Pollard is a 79-year-old female who has a history of paroxysmal atrial fibrillation who came with gastrointestinal (GI) bleeding and was found to be severely thrombocytopenic. Consequently, all her blood thinners were discontinued; most importantly apixaban. She received 3 units of blood. Currently she is in atrial fibrillation that is rate controlled with the use of metoprolol. Unfortunately, in this setting when her platelet count remains in 20-25,000 range, obviously we cannot safely anticoagulate her. From a cardiac perspective, I do not have much to add. She had likely type 2 myocardial infarction (GA) on presentation, which is not surprising in setting of hemoglobin just north of 5. There is tentative plan to perform esophagogastroduodenoscopy (EGD) on Saturday. From a cardiac perspective, I do not have any objections, but from practical perspective, I believe it probably would be advisable to wait a little bit longer until her platelet count at least starts raising. This has been the most frustrating problem. I am not quite sure why her thrombocytopenia is not improving, assuming that it was triggered by urinary tract infection (UTI) and consumption due to GI bleeding. But hopefully we will see turnaround any day.
--- NOTE | 2020-01-30 15:53 | IPN ---
DATE: 01/30/2020 Patient complains on bright red blood per rectum and black stools this morning. No chest pain, pressure, tightness, shortness of breath. She does complain of weakness. Temperature 97.9, pulse 69, respiratory 17, blood pressure 136/61, 96% on room air. GENERAL: Awake, alert, oriented. Answering questions appropriately. No respiratory distress. No cyanosis. LUNGS: Diminished. Bibasilar crackles. HEART: S1, S2. Sinus rhythm. ABDOMEN: Soft, nontender, nondistended. Positive bowel sounds. EXTREMITIES: No cyanosis or clubbing. White count 4.1, hemoglobin 8.4, hematocrit 24, platelet count 24. Sodium 135, potassium 4.5, chloride 103, bicarbonate 27, BUN 33, creatinine 1.02, glucose of 126. ASSESSMENT AND PLAN: This is a 79-year-old female, history of chronic atrial fibrillation on anticoagulation, hypertension, diabetes, hyperlipidemia, chronic back pain, hypothyroidism, presented to the emergency room with abdominal pain and melena, a hemoglobin of 5.4, transfused 3 units leukocyte reduced red blood cells with improvement in hemoglobin to 10.1. At that time, she was also thrombocytopenic, thought to be due to consumption of platelets from the massive gastrointestinal (GI) bleed, as well as sepsis secondary to urinary tract infection (UTI) with Escherichia (E) coli. Patient's Eliquis has been discontinued. She has been on no anticoagulation. She continues to drop her hemoglobin, now down to 8.4. Patient did develop a type 2 [id number] myocardial infarction, thought to be secondary to demand mediated ischemia. During the hospitalization, she complained of left ankle pain, treated with a short course of prednisone. IMPRESSION: 1. Acute kidney injury secondary to contrast neuropathy. Patient's creatinine is back to normal. Intravenous (IV) fluids have been discontinued. 2. Acute GI bleed with complaints of melena this morning. Patient admits to a bloody bowel movement. She is scheduled for a colonoscopy on Saturday and will receive platelet transfusion prior to colonoscopy. 3. Sepsis secondary to UTI. Patient completed three days of IV ceftriaxone, currently completing four days of Augmentin for a seven day course. 4. Left ankle gout. Prednisone short course. 5. [id number]-MF-rpzlsaadm myocardial infarction (MT). Demand mediated ischemia. Per Dr. Leija, no contraindications to proceeding with colonoscopy. 6. Thrombocytopenia secondary to sepsis from UTI and conception from GI bleed. Possible immune thrombocytopenic purpura (ITP). Therefore, will monitor after platelet therapy on Saturday. Dr. Ashton has been consulted. Await any further recommendations. Will plan for platelet transfusion prior to colonoscopy. FELICIA
[2020-01-30 21:00] VITALS: BP 116/74
[2020-01-30 22:00] VITALS: BP 116/74
[2020-01-31] MEDS ORDERED: MORPHINE 2 MG/ML 1ML VIAL (J2270) IV ONE (01:00)
[2020-01-31] MEDS: METOPROLOL TART 50 MG TAB PO SCH ×4 (01:09→18:08)
[2020-01-31 06:00] VITALS: BP 134/64
[2020-01-31] MEDS: QUEtiapine FUMARATE 50 MG TAB PO SCH ×3 (06:11→18:06)
[2020-01-31] MEDS: SLF 3 ML SYR IV SCH ×3 (06:11→21:26)
[2020-01-31 06:33] LABS: HEMATOCRIT 31.2 % (36.0-47.0); HEMOGLOBIN 10.2 g/dl (12.0-15.5); MEAN CORPUSCULAR HEMOGLOBIN 29.2 pg (27.0-33.0); MEAN CORPUSCULAR HGB CONC 32.7 g/dl (32.0-36.5); MEAN CORPUSCULAR VOLUME 89.4 fl (80.0-96.0); RED BLOOD COUNT 3.49 10^6/uL (4.00-5.40); WHITE BLOOD COUNT 5.2 10^3/uL (4.0-10.0)
[2020-01-31 06:36] LABS: PLATELET COUNT, AUTOMATED 32 10^3/uL (150-450)
[2020-01-31 06:54] LABS: ALBUMIN 3.7 GM/DL (3.2-5.2); BILIRUBIN,TOTAL 0.8 MG/DL (0.2-1.0); CALCIUM LEVEL 9.3 MG/DL (8.8-10.2); CREATININE FOR GFR 1.26 MG/DL (0.55-1.30); GLOMERULAR FILTRATION RATE 43.6 (>39); POTASSIUM SERUM 4.4 MEQ/L (3.5-5.1); TOTAL PROTEIN 7.7 GM/DL (6.4-8.2)
[2020-01-31] MEDS: PANTOPRAZOLE 40MG VIAL (C9113 PER 1) IV SCH ×2 (08:33→21:25)
[2020-01-31] MEDS: predniSONE 20 MG TAB PO SCH (08:33)
[2020-01-31] MEDS: AUGMENTIN 875 MG TAB PO SCH ×2 (08:33→21:24)
[2020-01-31] MEDS: LACTOBACILLUS ACIDOPHILUS CAP (BACID) PO SCH ×4 (08:34→21:24)
[2020-01-31] MEDS: POTASSIUM CHLORIDE 10 MEQ SR TABLET PO SCH ×2 (08:34→21:25)
[2020-01-31] MEDS: HumaLOG INSULIN (NovoLOG) PER UNIT SC SCH ×4 (08:34→21:00)
[2020-01-31] MEDS: LEVOTHYROXINE 100MCG TABLET (0.1MG) PO SCH (08:34)
[2020-01-31] MEDS: ISOSORBIDE MON. (IMDUR) 30 MG XR TAB PO SCH (08:35)
[2020-01-31] MEDS: HYDROmorphone 2 MG TAB PO SCH ×4 (08:35→21:25)
[2020-01-31] MEDS: MIRALAX *UNIT DOSE* 17GM PACKET PO SCH ×2 (08:36→21:25)
[2020-01-31 08:42] LABS: CK-MB VALUE MASS 1.1 NG/ML (<3.6); MB/CK RELATIVE INDEX 6.88 (< OR =4); TROPONIN I 0.14 NG/ML (< 0.10)
--- NOTE | 2020-01-31 11:24 | IPN ---
DATE: 01/31/2020 Mrs. Pollard is feeling a little better. She still had a lot of hip pain yesterday, but overall feels stronger. On a positive sign, her platelet count is finally a little bit up. Vital signs: Blood pressure 134/64, heart rate has been in 60s, irregular, afebrile, 95% on room air saturation. Weight has not been recorded. Alert and oriented appropriate Jugular venous pressure (JVP) is not high. Lungs are clear. Good air movement. Heart exam reveals irregularly irregular rhythm without gallop or rub. Abdomen is soft without obvious tenderness. Extremities are free of edema. LABORATORY: CBC - WBC count 5.2, hemoglobin 10.2, hematocrit 31, platelet count 32,000 and basic metabolic panel is essentially normal. Troponin is down to 0.14, and we should stop checking it. ASSESSMENT/PLAN Mrs. Pollard is a 79-year-old female who has paroxysmal atrial fibrillation for which she has been anticoagulated with apixaban. She presented with gastrointestinal (GI) bleeding and was found to be severely anemic, as a complicated factor developed type 2 myocardial infarction (UT). After transfusing three units of packed red blood cells, her hemoglobin improved and has been essentially stable since. As a probable cause of this event was severe thrombocytopenia, which we believe at this point is most likely a consequence of urinary tract infection (UTI), or possibly even consumption related. She was profoundly thrombocytopenic with counts in 20,000 range. This persisted for quite a few days, but, finally, today the platelet count is over 30,000 and is trending up. If we are correct about the etiology, I do expect that there will be recovery within a few days. But unfortunately the count is still sufficiently low, that precludes use of anticoagulation, and I did not make any changes in her medications today. She is tentatively scheduled to have esophagogastroduodenoscopy (EGD) and colonoscopy tomorrow.
[2020-01-31] MEDS ORDERED: GOLYTELY SOLN 4000 ML BTL PO ONE (12:00)
[2020-01-31] MEDS: tiZANidine 4 MG TAB PO PRN ×3 (12:46→21:26)
[2020-01-31 14:00] VITALS: BP 115/61
[2020-01-31 22:00] VITALS: BP 144/67
[2020-02-01] MEDS: METOPROLOL TART 50 MG TAB PO SCH ×4 (05:38→18:00)
[2020-02-01] MEDS: SLF 3 ML SYR IV SCH ×3 (05:38→21:39)
[2020-02-01] MEDS: QUEtiapine FUMARATE 50 MG TAB PO SCH ×2 (05:38→12:00)
[2020-02-01 06:00] VITALS: BP 149/95
[2020-02-01 07:11] LABS: HEMATOCRIT 28.6 % (36.0-47.0); HEMOGLOBIN 9.5 g/dl (12.0-15.5); MEAN CORPUSCULAR HEMOGLOBIN 29.7 pg (27.0-33.0); MEAN CORPUSCULAR HGB CONC 33.2 g/dl (32.0-36.5); MEAN CORPUSCULAR VOLUME 89.4 fl (80.0-96.0); PLATELET COUNT, AUTOMATED 31 10^3/uL (150-450); WHITE BLOOD COUNT 4.4 10^3/uL (4.0-10.0)
[2020-02-01 07:18] LABS: INR 1.18; PROTHROMBIN TIME 14.7 SECONDS (11.8-14.0)
[2020-02-01 07:19] LABS: PARTIAL THROMBOPLASTIN TIME 26.4 SECONDS (25.0-38.4)
[2020-02-01 07:28] LABS: BLOOD UREA NITROGEN 17 MG/DL (7-18); CALCIUM LEVEL 8.9 MG/DL (8.8-10.2); CARBON DIOXIDE LEVEL 30 MEQ/L (21-32); CHLORIDE LEVEL 102 MEQ/L (98-107); CREATININE FOR GFR 0.94 MG/DL (0.55-1.30); GLOMERULAR FILTRATION RATE > 60.0 (>39); GLUCOSE, FASTING 119 MG/DL (70-100); POTASSIUM SERUM 3.7 MEQ/L (3.5-5.1); SODIUM LEVEL 140 MEQ/L (136-145)
[2020-02-01] MEDS: AUGMENTIN 875 MG TAB PO SCH (08:35)
[2020-02-01] MEDS: PANTOPRAZOLE 40MG VIAL (C9113 PER 1) IV SCH ×2 (08:35→21:39)
[2020-02-01] MEDS: LACTOBACILLUS ACIDOPHILUS CAP (BACID) PO SCH ×4 (08:35→21:38)
[2020-02-01] MEDS: HumaLOG INSULIN (NovoLOG) PER UNIT SC SCH ×4 (08:35→21:00)
[2020-02-01] MEDS: POTASSIUM CHLORIDE 10 MEQ SR TABLET PO SCH ×2 (08:36→21:38)
[2020-02-01] MEDS: ISOSORBIDE MON. (IMDUR) 30 MG XR TAB PO SCH (08:36)
[2020-02-01] MEDS: HYDROmorphone 2 MG TAB PO SCH ×4 (08:36→21:38)
[2020-02-01] MEDS: predniSONE 20 MG TAB PO SCH (08:37)
[2020-02-01] MEDS: LEVOTHYROXINE 100MCG TABLET (0.1MG) PO SCH (08:37)
[2020-02-01] MEDS: MIRALAX *UNIT DOSE* 17GM PACKET PO SCH ×2 (08:37→21:00)
[2020-02-01] MEDS: tiZANidine 4 MG TAB PO PRN ×2 (10:32→21:38)
--- NOTE | 2020-02-01 13:56 | IPN ---
DATE: 02/01/2020 Mrs. Pollard has not had any significant events since yesterday. She received preparation for colonoscopy. So, she did not sleep much and she feels tired and exhausted this morning. She denies any chest pain or shortness of breath or palpitations. Her blood pressure was elevated this morning. I suspect most likely due to the discomfort of the prep and the fact that she could not sleep. On a positive side, she converted to sinus rhythm with occasional ventricular ectopy. On physical exam, she is alert, oriented, appropriate. Blood pressure 149/95. Heart rate is from 60s to 80s. She is afebrile. Saturation 99% on room air. Again, weight was not recorded. Jugular venous pulse (JVP) is not high. Lungs are clear. Heart exam reveals regular rhythm with occasional ectopy. There is no peripheral edema. LABORATORIES: Complete blood count (CBC) this morning reveals hemoglobin 9.5, hematocrit 28.6, and platelet count 31,000. Basic metabolic panel is normal. ASSESSMENT/PLAN: Mrs. Pollard is a 79-year-old female with history of paroxysmal atrial fibrillation who presented with gastrointestinal (GI) bleed in setting of fairly severe thrombocytopenia. We believe that the thrombocytopenia was caused by urinary tract infection (UTI) possibly together with consumption coagulopathy. Platelet count has been quite stubborn. I was optimistic yesterday after increasing the count from 20-30,000 that we would see a very rapid normalization, but platelet count has not changed since yesterday. Consequently, I will await with restarting anticoagulation. I would like to see the platelet count at least 60-70,000 range before we would consider anticoagulating patient again. No new news for me today. We will see what her GI evaluation shows.
[2020-02-01 14:00] VITALS: BP 112/59
[2020-02-01] MEDS ORDERED: propofoL 200 MG/20 ML VIAL As Ordered ONE (16:06)
[2020-02-01] MEDS ORDERED: ONDANSETRON 4MG/2ML VIAL As Ordered ONE (16:06)
[2020-02-01] MEDS ORDERED: fentaNYL 100 MCG/2 ML INJECTION (J3010) As Ordered ONE (16:06)
[2020-02-01] MEDS ORDERED: LIDOCAINE 2% 100MG/5ML SDV (FOR ANES.) As Ordered ONE (16:06)
--- NOTE | 2020-02-01 16:31 | IPNPDOC ---
Date Seen The patient was seen on 02/01/20. Progress Note Interval History: Patient was noted to have persistent low platelets, positive troponins from NS PINKY, and relatively stable hemoglobin till 01/29/2020 and then she had another episode of rectal bleeding with bright red and dark stools. GI was recalled for possible inpatient EGD and Colonoscopy to decide on further management. patient reprots her abdominal pain improved with some intermittent episodes in past few days. Patient completed the bowel prep and denies any further bleeding per rectum. Exam: Vitals: reviewed General: Alert and oriented x 3, not in acute distress HEENT: Mild pallor, no icterus. Normal oropharynx, Chest: symmetric with bilateral clear air entry, CVS: S1, S2 heard, Abdomen: non-distended, soft, non-tender, no palpable masses, normal bowel sounds heard. 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 Moves all extremities Skin: no rash. Labs: reviewed. Imaging: reviewed. Impression: -- Acute drop in hemoglobin and hematocrit with intermittent episodes of darks tools and prior NSAID and Anticoagulant use, -- DDx- Need to rule out Upper GI bleeding from PUD ( NSAID use related) vs rule out AVMs, vs low GI bleeding from Diverticular bleeding vs Colon polyps. -- Acute onset pancytopenia with severe thrombocytopenia -- hematology following the patient. -- UTI and NSTEMI -- management as per primary team. Recommendations: - Patient educated about the test results, possible differential diagnoses and All questions answered. - Avoid NSAIDs - Continue on PPI. - Monitor hemoglobin and hematocrit and transfuse as needed to hemoglobin level of around 9gm/dL. - In view of severely low platelet levels, discussed the possible need for transfusion if needed based on the procedure results. - Due to recurrent drop in hemoglobin and overt external bleeding will schedule for urgent EGD and Colonoscopy. The procedures, indications, risks (bleeding, perforation, infection, hypotension, respiratory depression, allergy, need for endotracheal intubation, surgery, colostomy, cardiac arrest, even ), alee efits, limitations (e.g., missing a lesion), and all other alternatives (including no intervention) were explained to the patient who understood and agreed for the procedures. - Post procedure, please review the operative notes for post operative recommendations. Plan of care discussed with patient and primary team. Patient verbalized understanding and agreed with the plan. VS, I&O, 24H, Fishbone Vital Signs/I&O Vital Signs Date Time Temp Pulse Resp B/P (MAP) Pulse Ox O2 Delivery O2 Flow Rate FiO2 02/01/20 14:00 97.9 83 16 112/59 (76) 100 Room Air 01/27/20 08:00 2.0 I&O- Last 24 Hours up to 6 AM 02/01/20 06:00 Intake Total 5390 ml Output Total 1400 ml Balance 3990 ml Laboratory Data 24H LABS Laboratory Tests 2 01/31/20 16:36: Bedside Glucose (Misc Panel) 174H 01/31/20 20:43: Bedside Glucose (Misc Panel) 168H 02/01/20 06:15: Nucleated Red Blood Cells % (auto) 0.0, Immature Platelet Fraction 6.5, Prothrombin Time 14.7H, Prothromb Time International Ratio 1.18, Activated Partial Thromboplast Time 26.4, Anion Gap 8, Glomerular Filtration Rate > 60.0, Calcium Level 8.9 02/01/20 11:25: Bedside Glucose (Misc Panel) 158H CBC/BMP Laboratory Tests 02/01/20 06:15 Microbiology Microbiology 01/31/20 Respiratory Virus Panel (PCR) ([facility]) - Final, Complete 01/30/20 Stool Occult Blood ([facility]) - Final, Complete 01/29/20 Urine Culture - Final, Complete 01/23/20 Urine Culture - Final, Complete Escherichia Coli 01/23/20 Blood Culture - Final, Complete NO GROWTH AFTER 5 DAYS 01/23/20 Blood Culture - Final, Complete NO GROWTH AFTER 5 DAYS JACQUELIN PARKER MD Feb 01, 2020 16:31
--- NOTE | 2020-02-01 17:27 | ROOR ---
Patient Name: Ynes Pollard Procedure Date: 02/01/2020 3:50 PM Date of : 1940 Age: 79 Room: Main OR Gender: Female Note Status: Finalized Procedure: Upper GI endoscopy Indications: Acute post hemorrhagic anemia, Heme positive stool, Melena Providers: Mason Webb MD Referring MD: Amisha Larson MD Requesting Provider: Medicines: Monitored Anesthesia Care Complications: No immediate complications. Procedure: Pre-Anesthesia Assessment: - Prior to the procedure, a History and Physical was performed, and patient medications and allergies were reviewed. The patient is competent. The risks and benefits of the procedure and the sedation options and risks were discussed with the patient. All questions were answered and informed consent was obtained. Patient identification and proposed procedure were verified by the physician, the nurse and the anesthesiologist in the procedure room. Mental Status Examination: alert and oriented. Airway Examination: normal oropharyngeal airway and neck mobility. Respiratory Examination: clear to auscultation. CV Examination: normal. Prophylactic Antibiotics: The patient does not require prophylactic antibiotics. Prior Anticoagulants: The patient has taken no previous anticoagulant or antiplatelet agents. ASA Grade Assessment: II - A patient with mild systemic disease. After reviewing the risks and benefits, the patient was deemed in satisfactory condition to undergo the procedure. The anesthesia plan was to use monitored anesthesia care (MAC). Immediately prior to administration of medications, the patient was re-assessed for adequacy to receive sedatives. The heart rate, respiratory rate, oxygen saturations, blood pressure, adequacy of pulmonary ventilation, and response to care were monitored throughout the procedure. The physical status of the patient was re-assessed after the procedure. The Endoscope was introduced through the mouth, and advanced to the second part of duodenum. The upper GI endoscopy was accomplished without difficulty. The patient tolerated the procedure well. Findings: The examined esophagus was normal. The Z-line was regular and was found 38 cm from the incisors. The entire examined stomach was normal. The ampulla, first portion of the duodenum, second portion of the duodenum and third portion of the duodenum were normal. Bile is noted in Duodenum, Impression: - Normal esophagus. - Z-line regular, 38 cm from the incisors. - Normal stomach. - Normal ampulla, first portion of the duodenum, second portion of the duodenum and third portion of the duodenum. - No specimens collected. Recommendation: - Patient has a contact number available for emergencies. The signs and symptoms of potential delayed complications were discussed with the patient. Return to normal activities tomorrow. Written discharge instructions were provided to the patient. - Resume previous diet. - Continue present medications. - Can taper off PPI to pepcid 20 mg daily. - [facility]. - Telephone GI clinic if symptomatic. - Return to primary care physician. Mason Webb MD Mason Webb MD 02/01/2020 5:27:16 PM Electronically signed by Mason Webb MD Number of Addenda: 0 Note Initiated On: 02/01/2020 3:50 PM Estimated Blood Loss: Estimated blood loss: none.
[2020-02-01] MEDS ORDERED: ONDANSETRON 4MG/2ML VIAL IV PRN (17:30)
[2020-02-01] MEDS ORDERED: LR 1,000 ML IV SCH (17:30)
--- NOTE | 2020-02-01 17:34 | ROOR ---
Patient Name: Ynes Pollard Procedure Date: 02/01/2020 3:52 PM Date of : 1940 Age: 79 Room: Main OR Gender: Female Note Status: Finalized Procedure: Colonoscopy Indications: Gastrointestinal occult blood loss, Rectal bleeding Providers: Mason Webb MD Referring MD: Amisha Larson MD Requesting Provider: Medicines: Monitored Anesthesia Care Complications: No immediate complications. Procedure: Pre-Anesthesia Assessment: - Prior to the procedure, a History and Physical was performed, and patient medications and allergies were reviewed. The patient is competent. The risks and benefits of the procedure and the sedation options and risks were discussed with the patient. All questions were answered and informed consent was obtained. Patient identification and proposed procedure were verified by the physician, the nurse and the anesthesiologist in the procedure room. Mental Status Examination: alert and oriented. Airway Examination: normal oropharyngeal airway and neck mobility. Respiratory Examination: clear to auscultation. CV Examination: normal. Prophylactic Antibiotics: The patient does not require prophylactic antibiotics. Prior Anticoagulants: The patient has taken no previous anticoagulant or antiplatelet agents. ASA Grade Assessment: II - A patient with mild systemic disease. After reviewing the risks and benefits, the patient was deemed in satisfactory condition to undergo the procedure. The anesthesia plan was to use monitored anesthesia care (MAC). Immediately prior to administration of medications, the patient was re-assessed for adequacy to receive sedatives. The heart rate, respiratory rate, oxygen saturations, blood pressure, adequacy of pulmonary ventilation, and response to care were monitored throughout the procedure. The physical status of the patient was re-assessed after the procedure. The Colonoscope was introduced through the anus and advanced to the terminal ileum, with identification of the appendiceal orifice and IC valve. The colonoscopy was performed without difficulty. The patient tolerated the procedure well. The quality of the bowel preparation was good. The terminal ileum, ileocecal valve, appendiceal orifice, and rectum were photographed. Scope insertion time was 2 minutes. Scope withdrawal time was 10 minutes. The total duration of the procedure was 12 minutes. Findings: The perianal and digital rectal examinations were normal. The terminal ileum appeared normal. Many small-mouthed diverticula were found in the sigmoid colon. There was no evidence of diverticular bleeding. Non-bleeding external and internal hemorrhoids were found during retroflexion. The hemorrhoids were large. The exam was otherwise without abnormality on direct and retroflexion views. Impression: - The examined portion of the ileum was normal. - Mild diverticulosis in the sigmoid colon. There was no evidence of diverticular bleeding. - Non-bleeding external and internal hemorrhoids. - The examination was otherwise normal on direct and retroflexion views. - No specimens collected. Recommendation: - Patient has a contact number available for emergencies. The signs and symptoms of potential delayed complications were discussed with the patient. Return to normal activities tomorrow. Written discharge instructions were provided to the patient. - Resume previous diet. - Continue present medications. - Repeat colonoscopy in 5-10 years for screening purposes. - Telephone GI clinic if symptomatic. - Return to primary care physician. Mason Webb MD Mason Webb MD 02/01/2020 5:33:38 PM Electronically signed by Mason Webb MD Number of Addenda: 0 Note Initiated On: 02/01/2020 3:52 PM Estimated Blood Loss: Estimated blood loss: none.
[2020-02-01 17:45] VITALS: BP 139/71
[2020-02-01 22:00] VITALS: BP 113/66
[2020-02-02] MEDS: METOPROLOL TART 50 MG TAB PO SCH ×5 (00:41→23:59)
[2020-02-02] MEDS: SLF 3 ML SYR IV SCH ×3 (05:40→22:03)
[2020-02-02 06:00] VITALS: BP 130/62
--- NOTE | 2020-02-02 06:39 | IPN ---
DATE OF SERVICE: 01/31/2020 Patient has continued to have black tarry stools with specks of red blood with her bowel movements. Afebrile. No abdominal pain, nausea or vomiting. No shortness of breath. Temperature 98, pulse 65, respiratory rate 18, blood pressure 132/62, 95% on room air. GENERAL: Awake, alert, oriented times three. Answering questions appropriately. LUNGS: Clear to auscultation. No wheezing, rales or rhonchi. HEART: S1, S2. Irregularly irregular. ABDOMEN: Obese. Soft, nontender, nondistended. EXTREMITIES: No cyanosis or clubbing. LABORATORY DATA: Reviewed. ASSESSMENT AND PLAN: This is a 79-year-old female with history of paroxysmal atrial fibrillation on chronic Eliquis as outpatient who was taking Naprosyn for chronic osteoarthritic pain admitted due to complaints of abdominal pain and melena and was found to have a hemoglobin of 5 and was transfused 3 units of leukocyte reduced red blood cells with increase in hemoglobin to 10. The patient was found to be thrombocytopenic on admission with platelet count of 40,000, thought to be secondary due massive GI bleed with secondary consumption of platelets and sepsis secondary to urinary tract infection (UTI) with Escherichia (E) Coli. At that time, the patient was also found to have a type [address] elevation myocardial infarction thought to be secondary to demand mediated ischemia. Bracelet And Brooch Maker and hematology/oncology and GI have been consulted for help in her management. During blood transfusion, the patient developed congestive heart failure with preserved ejection fraction and was diuresed with Lasix. She complained of abdominal pain and was evaluated for acute mesenteric ischemia with CT angio which was negative. The patient had subsequently developed acute nephropathy secondary to contrast nephropathy and her Lasix had to be discontinued. She is now euvolemic with improved creatinine. Due to ongoing GI bleed, she will undergo esophagogastroduodenoscopy (EGD) and colonoscopy in the morning with improving platelet count to 32,000 this morning. Per GI, we may transfuse platelets after the EGD and colonoscopy. She is an add on case tomorrow therefore she is to start a Golytely prep starting at noon today and to complete at 8:00 a.m., clears diet for lunch and nothing by mouth (n.p.o.) after midnight. Timing for the EGD and colonoscopy will be finalized tomorrow morning. For her non-ST elevation myocardial infarction due to low platelet counts, we have been unable to anticoagulate her. Due to GI bleed, low platelet count at this time after stabilizing her for the GI bleed, the patient is to have an outpatient stress test and possible coronary angiogram in [place] and antiplatelet and anticoagulation can be resumed. She is currently at risk of CVA being off anticoagulation and still in atrial fibrillation, therefore, will defer to her athletic gear custodian regarding a Watchman procedure. She has been treated for the UTI with IV ceftriaxone for three days and completing four more days of Augmentin to complete a seven day course. ACUTE ISSUES: 1. Thrombocytopenia secondary to sepsis from UTI and consumption from massive GI bleed with hemoglobin of 5. Per Dr. Olson, the patient may be transfused platelets in order to stabilize biopsies during EGD and colonoscopy. Per Dr. Webb, he would prefer to have the platelet transfusion after the EGD and colonoscopy for stabilization. 2. Non-ST elevation TN, demand mediated ischemia. Per Dr. Leija no contraindications to proceeding with EGD and colonoscopy, which is required to figure out the reason for patient's GI bleed in order to prepare for anticoagulation and antiplatelet therapy once the patient is sent to [place] for coronary angiogram to further evaluate the type 2 non-ST elevation TN. The patient is currently chest pain free. 3. Left ankle gout. Completed short course of prednisone. No NSAIDS due to recent GI bleed. 4. Sepsis secondary to urinary tract infection. To complete a full seven days of antibiotics. 5. Code status is full code.
[2020-02-02 06:50] LABS: HEMATOCRIT 24.8 % (36.0-47.0); HEMOGLOBIN 8.1 g/dl (12.0-15.5); MEAN CORPUSCULAR HEMOGLOBIN 29.3 pg (27.0-33.0); MEAN CORPUSCULAR HGB CONC 32.7 g/dl (32.0-36.5); MEAN CORPUSCULAR VOLUME 89.9 fl (80.0-96.0); RED BLOOD COUNT 2.76 10^6/uL (4.00-5.40); WHITE BLOOD COUNT 4.2 10^3/uL (4.0-10.0)
[2020-02-02 06:52] LABS: PLATELET COUNT, AUTOMATED 30 10^3/uL (150-450)
[2020-02-02 07:13] LABS: BLOOD UREA NITROGEN 16 MG/DL (7-18); CALCIUM LEVEL 8.5 MG/DL (8.8-10.2); CARBON DIOXIDE LEVEL 28 MEQ/L (21-32); CHLORIDE LEVEL 106 MEQ/L (98-107); CREATININE FOR GFR 0.94 MG/DL (0.55-1.30); GLOMERULAR FILTRATION RATE > 60.0 (>39); GLUCOSE, FASTING 120 MG/DL (70-100); POTASSIUM SERUM 3.8 MEQ/L (3.5-5.1); SODIUM LEVEL 142 MEQ/L (136-145)
[2020-02-02] MEDS: LACTOBACILLUS ACIDOPHILUS CAP (BACID) PO SCH ×4 (08:02→20:17)
[2020-02-02] MEDS: LEVOTHYROXINE 100MCG TABLET (0.1MG) PO SCH (08:02)
[2020-02-02] MEDS: predniSONE 20 MG TAB PO SCH (08:02)
[2020-02-02] MEDS: POTASSIUM CHLORIDE 10 MEQ SR TABLET PO SCH ×2 (08:02→20:17)
[2020-02-02] MEDS: PANTOPRAZOLE 40MG VIAL (C9113 PER 1) IV SCH ×2 (08:02→20:17)
[2020-02-02] MEDS: ISOSORBIDE MON. (IMDUR) 30 MG XR TAB PO SCH (08:03)
[2020-02-02] MEDS: HumaLOG INSULIN (NovoLOG) PER UNIT SC SCH ×4 (08:03→20:19)
[2020-02-02] MEDS: HYDROmorphone 2 MG TAB PO SCH ×4 (08:04→20:18)
[2020-02-02] MEDS: MIRALAX *UNIT DOSE* 17GM PACKET PO SCH ×2 (08:09→20:19)
[2020-02-02] MEDS: tiZANidine 4 MG TAB PO PRN (09:18)
--- NOTE | 2020-02-02 09:30 | IPN ---
DATE OF SERVICE: 02/01/2020 Patient had a bowel prep with Golytely last night and said that she still noted some black stools along with some specks of red blood. She complained of some dizziness and lightheadedness this morning and says that she is feeling very weak. No chest pain, pressure or tightness. No oozing along the IV sites. Platelet count is 31,000 this morning. Afebrile. No chills. Temperature 96.2, pulse 83, respiratory rate 18, blood pressure 149/95, 99% on room air. Generally, patient is awake, alert, oriented to person, place and time. Anicteric sclerae. No jaundice. No pallor or icterus. No jugular venous distention (JVD) or thyromegaly. No cervical lymphaenopathy. Moist mucous membranes. Lungs are diminished. No wheezing or rales. Heart: S1, S2. Irregularly irregular. Abdomen: Obese. Soft, nontender, nondistended. Positive bowel sounds. Extremities: No cyanosis or clubbing. LABORATORY DATA: White count 4.4, hemoglobin 9.5, hematocrit 28 and platelet count 31. Sodium 140, potassium 3.7, chloride 102, bicarbonate 30, BUN 17, creatinine 0.94, glucose 119. Calcium 8.9. Troponin 0.14. ASSESSMENT AND PLAN: This is a 79-year-old female with history of paroxysmal atrial fibrillation who is on chronic Apixaban and taking Naprosyn for her osteoarthritis who has history of hypothyroidism and presented to the emergency room with complaints of abdominal pain and melena and found to have a hemoglobin of 5.4 and transfused a total of four units of leukocyte reduced RBCs with continued decrease in hemoglobin requiring re-transfusion. The patient's platelet count was noted to be 40,000, which was thought to be secondary to consumption by the massive GI bleed with persistent levels that are in the 24,0000 range. Yesterday, she went up to 32,000. Still with complaints of black stools and specks of bright red blood. Per community cultural development officer, Dr. Webb, we can proceed with esophagogastroduodenoscopy (EGD) and colonoscopy if cleared by cardiology. Per Dr. Leija, contraindication to EGD and colonoscopy as the patient developed a type 2 non-ST elevation myocardial infarction and not a true right coronary obstruction. CURRENT ISSUES: 1. Acute blood loss anemia secondary to GI bleed. Most likely upper bleed due to complaints of melena and black tarry stools. The patient has received a total of four units of leukocyte reduced RBC with continued decrease. She will undergo EGD and colonoscopy today. Per Dr. Olson, r d engineer, patient can be transfused platelets prior to EGD and colonoscopy, however, Dr. Webb would prefer the transfusion of platelets after the EGD and colonoscopy. Hemoglobin/hematocrit (H/H) has been checked. She is currently on Protonix. Defer to Dr. Webb for any other further management. She is currently nothing by mouth. 2. Sepsis secondary to urinary tract infection. Complete three days of IV ceftriaxone, four days of Augmentin for a total of seven day course. Afebrile. No complaints of dysuria, urgency or frequency, fever, chills, or flank pain. 3. Type 2 demand mediated ischemia with a non-ST elevation OR. Per Dr. Leija, patient may proceed with EGD and colonoscopy. She will need to have a stress test and most likely a coronary angiogram at some point once the platelets have fully recovered and no other signs of active GI bleed and after stabilization after EGD and colonoscopy. 4. Thrombocytopenia. Evaluated by Dr. Olson, thought to be secondary to consumption from the massive GI bleed as well as sepsis from the urinary tract infection. HIT panel was negative. The patient is currently with a platelet count of 31. Per Dr. Webb, he would prefer to have the platelet transfusion after the EGD and colonoscopy. 5. Chronic atrial fibrillation. Currently rate controlled. Unable to be anticoagulated due to GI bleed and low platelet counts. 6. Diabetes. Currently nothing by mouth status. Hypoglycemic protocol. MTDD
--- NOTE | 2020-02-02 11:26 | IPN ---
DATE OF SERVICE: 02/02/2020 Mrs. Pollard is feeling much better. She had her esophagogastroduodenoscopy (EGD) and colonoscopy yesterday without clearcut source of bleeding being found. She denies any chest pain, palpitations, or shortness of breath. She has been ambulating to the bathroom and back without difficulty. On telemetry, she is mostly in sinus rhythm with premature ventricular contractions (PVCs). No long pauses; and when she was in atrial fibrillation, the rate was controlled. Vital signs this morning: Blood pressure 130/62, heart rate has been in 70s and 80s. She is afebrile. Her jugular venous pressure (JVP) is not up. Lungs are clear. Irregularly irregular rhythm but no obvious murmur or gallop. Abdomen is soft, nontender. Extremities: Are free of edema. Neurologically, she is intact. LABORATORY: Still reveal thrombocytopenia with platelet count 30,000, hemoglobin is 8.1 and WBC count 4.2. Basic metabolic panel is normal but for glucose 120. ASSESSMENT AND PLAN: Mrs. Pollard is a 79-year-old female who has known paroxysmal atrial fibrillation and was on Eliquis as an outpatient. She came with gastrointestinal (GI) bleed and was found to have fairly severe thrombocytopenia. It was felt that the cause of thrombocytopenia is a urinary tract infection (UTI) plus the consumption during bleeding. I am still somewhat perplexed that the platelet count is not recovering much faster, but the patient is feeling well. There has not been any bleeding; and consequently, I do believe that she can go home. Obviously, we are not going to leave her on any anticoagulation at this point. I tentatively plan to see her in followup in approximately 2 weeks, but she should be seen sooner by either climatology teacher or by primary care physician to monitor her counts. After she has at least partial recovery of platelet count, then we will talk about restarting anticoagulation and performing further evaluation for potential underlying coronary artery disease (CAD), but I do believe that her elevated troponin during this presentation was principally related to severe anemia and is unlikely to be type 1 myocardial infarction.
[2020-02-02 12:33] LABS: BASO % 0.3 % (0.0-1.0); HEMATOCRIT 25.8 % (36.0-47.0); HEMOGLOBIN 8.4 g/dl (12.0-15.5); LYMPH # 1.4 10^3/uL (1.5-5.0); LYMPH % 42.4 % (24.0-44.0); MEAN CORPUSCULAR HEMOGLOBIN 29.6 pg (27.0-33.0); MEAN CORPUSCULAR HGB CONC 32.6 g/dl (32.0-36.5); MEAN CORPUSCULAR VOLUME 90.8 fl (80.0-96.0); MONO # 0.3 10^3/uL (0.0-0.8); MONO % 7.7 % (0.0-5.0); NEUTROPHILS # 1.7 10^3/uL (1.5-8.5); NEUTROPHILS % 49.3 % (36.0-66.0); PLATELET COUNT, AUTOMATED 32 10^3/uL (150-450); RED BLOOD COUNT 2.84 10^6/uL (4.00-5.40); WHITE BLOOD COUNT 3.4 10^3/uL (4.0-10.0)
--- NOTE | 2020-02-02 12:45 | IPNPDOC ---
Text Note Date of Service The patient was seen on 02/02/20. NOTE Subjective: Patient is a 79-year-old female with a PMHx of Paroxysmal A. fib (on Eliquis), OA (on Naprosyn), Hypothyroidism, who presented to the ER with abdominal pain and melanotic stools. In the emergency room, patient was found to have a hemoglobin of 5.4. Patient was admitted to the hospitalist service for further evaluation and treatment. She received 4 units of PRBC transfusion and was taken for upper and lower endoscopy with Dr. Webb. Throughout hospitalization. Patient was found to have thrombocytopenia, which was thought to be secondary to consumptive etiology secondary to her GI bleeding. Patient was seen and examined at the bedside. . Currently, patient reports that she does not express any nausea, vomiting, chest pain, shortness breath, palpitations, abdominal pain, diarrhea, or urinary discomfort. Objective: Vitals (See below) General: Lying in bed, appears comfortable, awake / alert HEENT: NC, AT CVS: +S1S2 Lungs: Fair air entry b/l, -w/r/r Abdomen: Soft, ND, NT Extremities: - Edema, - Calf tenderness Assessment and plan: s/p Acute blood loss anemia - likely 2/2 GI bleed - Patient reports that she has experienced dark bowel movement this morning at 3 AM - Patient is hemodynamically stable and afebrile - Hemoglobin appears to be stable; will continue to follow trend - s/p 4 units of PRBC - EGD 01/31: Normal esophagus, normal stomach, normal ampulla, first portion of the duodenum, second portion of the day on him and third portion of the duodenum - Colonoscopy 01/31: Portion of the ileum was normal, mild diverticulosis in sigmoid colon, there was no evidence of diverticular bleeding, nonbleeding external, internal hemorrhoids, examination was otherwise normal on direct and retroflexion views - c/w Protonix IV BID - Currently on high fiber diet - Gastroenterology on consultation; appreciate their input s/p Sepsis - 2/2 UTI - Remains hemodynamically stable and afebrile - UA with evidence of infection; Urine culture 01/22: E. Coli - s/p Ceftriaxone x 3 days; s/p Augmentin x 4 days NSTEMI Type II - likely 2/2 symptomatic anemia - Cardiology on consultation; patient will likely require stress testing to be completed as an outpatient Thrombocytopenia - likely 2/2 consumptive etiology - 2/2 GI bleed - Currently, patient's platelet count has remained stable - HIT antibody pending - Avoiding anticoagulation - Oncology / Hematology on consultation; appreciate their input Chronic atrial fibrillation - c/w rate control with metoprolol - currently off full anticoagulation (re: GI bleed / thrombocytopenia) HTN - BP well controlled - c/w Metoprolol and Isosorbide mononitrate Chronic back - Patient follows with pain management as an outpatient - c/w Dilaudid PO / Tizanidine Hypothyroidism - c/w Levothyroxine DM2 - c/w ISS DVT prophylaxis - c/w TEDs/Sequentials VS,Fishbone, I+O VS, Fishbone, I+O Laboratory Tests 02/02/20 06:35 Vital Signs Date Time Temp Pulse Resp B/P (MAP) Pulse Ox O2 Delivery O2 Flow Rate FiO2 02/02/20 08:34 72 18 99 Room Air 02/02/20 06:00 98.4 130/62 (84) 01/27/20 08:00 2.0 I&O- Last 24 Hours up to 6 AM 02/02/20 06:00 Intake Total 500 ml Output Total 0 ml Balance 500 ml KEON HERNANDEZ MD Feb 02, 2020 12:45
[2020-02-02 14:00] VITALS: BP 128/51
[2020-02-02 22:00] VITALS: BP 128/66
[2020-02-03] VITALS (10 sets, daily range): BP systolic 141–161; BP diastolic 71–95
[2020-02-03] MEDS ORDERED: ACETAMINOPHEN TAB 650MG DOSE (2X325MG) PO PRN (02:30)
[2020-02-03] MEDS: METOPROLOL TART 50 MG TAB PO SCH ×3 (05:49→17:48)
[2020-02-03] MEDS: SLF 3 ML SYR IV SCH ×3 (05:50→21:48)
[2020-02-03 06:24] LABS: HEMATOCRIT 24.2 % (36.0-47.0); MEAN CORPUSCULAR HEMOGLOBIN 29.1 pg (27.0-33.0); MEAN CORPUSCULAR HGB CONC 33.1 g/dl (32.0-36.5); RED BLOOD COUNT 2.75 10^6/uL (4.00-5.40); WHITE BLOOD COUNT 5.7 10^3/uL (4.0-10.0)
[2020-02-03 06:25] LABS: PLATELET COUNT, AUTOMATED 30 10^3/uL (150-450)
[2020-02-03 06:37] LABS: BLOOD UREA NITROGEN 17 MG/DL (7-18); CARBON DIOXIDE LEVEL 27 MEQ/L (21-32); CHLORIDE LEVEL 104 MEQ/L (98-107); CREATININE FOR GFR 0.93 MG/DL (0.55-1.30); GLOMERULAR FILTRATION RATE > 60.0 (>39); GLUCOSE, FASTING 109 MG/DL (70-100); SODIUM LEVEL 139 MEQ/L (136-145)
[2020-02-03] MEDS: MIRALAX *UNIT DOSE* 17GM PACKET PO SCH ×2 (09:00→21:00)
[2020-02-03] MEDS: PANTOPRAZOLE 40MG VIAL (C9113 PER 1) IV SCH ×2 (09:07→21:00)
[2020-02-03] MEDS: HumaLOG INSULIN (NovoLOG) PER UNIT SC SCH ×4 (09:07→21:00)
[2020-02-03] MEDS: LEVOTHYROXINE 100MCG TABLET (0.1MG) PO SCH (09:08)
[2020-02-03] MEDS: HYDROmorphone 2 MG TAB PO SCH (09:08)
[2020-02-03] MEDS: POTASSIUM CHLORIDE 10 MEQ SR TABLET PO SCH ×2 (09:08→21:01)
[2020-02-03] MEDS: LACTOBACILLUS ACIDOPHILUS CAP (BACID) PO SCH ×4 (09:08→21:00)
[2020-02-03] MEDS: ISOSORBIDE MON. (IMDUR) 30 MG XR TAB PO SCH (09:10)
--- NOTE | 2020-02-03 11:00 | IPNPDOC ---
Text Note Date of Service The patient was seen on 02/03/20. NOTE Subjective: Patient is a 79-year-old female with a PMHx of Paroxysmal A. fib (on Eliquis), OA (on Naprosyn), Hypothyroidism, who presented to the ER with abdominal pain and melanotic stools. In the emergency room, patient was found to have a hemoglobin of 5.4. Patient was admitted to the hospitalist service for further evaluation and treatment. She received 4 units of PRBC transfusion and was taken for upper and lower endoscopy with Dr. Webb. Throughout hospitalization. Patient was found to have thrombocytopenia, which was thought to be secondary to consumptive etiology secondary to her GI bleeding. Patient was seen and examined at the bedside. Patient reports that earlier this morning she has had dark-colored bowel movement. Patient denies chest pain, lightheadedness, cough, belly pain, or urinary discomfort. Objective: Vitals (See below) General: Lying in bed, remains comfortable, awake / alert HEENT: NC, AT CVS: +S1S2 Lungs: Fair air entry b/l, no appreciable wheezing, rhonchi or crackles Abdomen: Soft, nondistended, nontender Extremities: No evidence of edema, - Calf tenderness Imaging: - CT abdomen / pelvis 01/22: 1. Trace pericholecystic fluid. No secondary signs of cholecystitis or biliary duct dilation. Consider follow-up gallbladder ultrasound if there is concern for acute cholecystitis. 2. Mild urinary bladder wall thickening suggesting cystitis. 3. Nonobstructing calyceal stones in the kidneys. No hydronephrosis. - Gallbladder US 01/22: 1. Mild gallbladder wall thickening may be seen in the setting of cholecystitis but is not diagnostic. No biliary duct dilation. Mild gallbladder adenomyomatosis. 2. Nonobstructing calyceal stones in the right kidney. No hydronephrosis. - CXR 01/22: CHF pattern with vascular congestion and interstitial edema. Some increased markings right upper lobe compared to left. - CT head 01/22: 1. No acute intracranial abnormality. 2. Atrophy and chronic microangiopathic change in supratentorial white matter. - CXR 01/25: Marked improvement in CHF pattern since the January 23, 2020 study. No pleural effusion or new infiltrate. Heart near the upper range of normal in size. A loop recorder is visible. - CT Angio abd/pel 01/26: 1. There is a diffuse decrease in hepatic parenchymal density, consistent with steatosis. 2. Examination of the liver demonstrates a lobular surface contour, and enlargement of the left and caudate lobes, findings consistent with cirrhosis. 3. The gallbladder is incompletely distended. This is most likely related to incomplete fasting. Clinical correlation to exclude gallbladder pathology suggested. 4. There is diffuse pancreatic atrophy. 5. Punctate nonobstructive calculi right kidney. 6. There has been a hysterectomy. 7. There is increased fluid demonstrated in the colon consistent with diarrhea. No mass demonstrated. - CT Angio chest 01/23: No CT evidence of pulmonary embolus. Mild diffuse alveolar edema pattern with cardiomegaly and small right pleural effusion, question CHF. Otherwise no active disease. - XR L foot 01/27: No acute bony abnormality. Vascular calcification and mild osteoarthritic changes. Accessory ossicle adjacent to the distal fibula. - CXR 01/28: Prominent heart. Otherwise no acute disease. No pleural effusion is seen. A loop recorder is visible. Assessment and plan: s/p Acute blood loss anemia - likely 2/2 GI bleed - Patient again reported dark colored bowel movement - Remains hemodynamically stable and afebrile - Hemoglobin has had a slow trend down - s/p 4 units of PRBC - EGD 01/31: Normal esophagus, normal stomach, normal ampulla, first portion of the duodenum, second portion of the day on him and third portion of the duodenum - Colonoscopy 01/31: Portion of the ileum was normal, mild diverticulosis in sig moid colon, there was no evidence of diverticular bleeding, nonbleeding external, internal hemorrhoids, examination was otherwise normal on direct and retroflexion views - c/w Protonix IV BID - c/w high fiber diet - Will transfuse additional 2 units of PRBC to bring count closer to baseline - If Hg continues to drop will get bleeding scan - Gastroenterology on consultation; appreciate their input s/p Sepsis - 2/2 UTI - Remains hemodynamically stable and afebrile - UA with evidence of infection; Urine culture 01/22: E. Coli - s/p Ceftriaxone x 3 days; s/p Augmentin x 4 days NSTEMI Type II - likely 2/2 symptomatic anemia - Cardiology on consultation; patient will likely require stress testing to be completed as an outpatient Thrombocytopenia - likely 2/2 consumptive etiology - 2/2 GI bleed - Currently, patient's platelet count has remained stable - HIT antibody negative - Avoiding anticoagulation - Oncology / Hematology on consultation; appreciate their input Chronic atrial fibrillation - c/w rate control with metoprolol - currently off full anticoagulation (re: GI bleed / thrombocytopenia) HTN - BP well controlled - c/w Metoprolol and Isosorbide mononitrate Chronic back - Patient follows with pain management as an outpatient - c/w Dilaudid PO / Tizanidine Hypothyroidism - c/w Levothyroxine DM2 - c/w ISS DVT prophylaxis - c/w TEDs/Sequentials VS,Fishbone, I+O VS, Fishbone, I+O Laboratory Tests 02/02/20 12:15 02/03/20 05:45 Vital Signs Date Time Temp Pulse Resp B/P (MAP) Pulse Ox O2 Delivery O2 Flow Rate FiO2 02/03/20 10:36 18 02/03/20 09:10 138/68 02/03/20 06:00 98.9 81 99 Room Air I&O- Last 24 Hours up to 6 AM 02/03/20 06:00 Intake Total 600 ml Output Total 0 ml Balance 600 ml KEON HERNANDEZ MD Feb 03, 2020 11:00
[2020-02-03] MEDS: HYDROmorphone 2 MG TAB PO PRN ×3 (14:17→21:01)
[2020-02-03] MEDS: RAMELTEON 8 MG TAB (ROZEREM) PO PRN (22:53)
[2020-02-04] MEDS: METOPROLOL TART 50 MG TAB PO SCH ×5 (00:15→23:53)
[2020-02-04] MEDS: HYDROmorphone 2 MG TAB PO PRN ×6 (01:16→23:52)
[2020-02-04] MEDS: SLF 3 ML SYR IV SCH (05:27)
[2020-02-04 06:00] VITALS: BP 148/79
[2020-02-04 06:13] LABS: HEMATOCRIT 30.5 % (36.0-47.0); MEAN CORPUSCULAR HEMOGLOBIN 30.2 pg (27.0-33.0); MEAN CORPUSCULAR HGB CONC 34.1 g/dl (32.0-36.5); MEAN CORPUSCULAR VOLUME 88.7 fl (80.0-96.0); RED BLOOD COUNT 3.44 10^6/uL (4.00-5.40); WHITE BLOOD COUNT 5.1 10^3/uL (4.0-10.0)
[2020-02-04 06:19] LABS: HEMOGLOBIN 10.4 g/dl (12.0-15.5); PLATELET COUNT, AUTOMATED 30 10^3/uL (150-450)
[2020-02-04 06:25] LABS: BLOOD UREA NITROGEN 16 MG/DL (7-18); CALCIUM LEVEL 8.5 MG/DL (8.8-10.2); CARBON DIOXIDE LEVEL 27 MEQ/L (21-32); CHLORIDE LEVEL 104 MEQ/L (98-107); CREATININE FOR GFR 0.87 MG/DL (0.55-1.30); GLOMERULAR FILTRATION RATE > 60.0 (>39); GLUCOSE, FASTING 138 MG/DL (70-100); SODIUM LEVEL 137 MEQ/L (136-145)
[2020-02-04] MEDS: PANTOPRAZOLE 40MG VIAL (C9113 PER 1) IV SCH (08:10)
[2020-02-04] MEDS: HumaLOG INSULIN (NovoLOG) PER UNIT SC SCH ×4 (08:10→21:00)
[2020-02-04] MEDS: POTASSIUM CHLORIDE 10 MEQ SR TABLET PO SCH ×2 (08:10→21:20)
[2020-02-04] MEDS: LACTOBACILLUS ACIDOPHILUS CAP (BACID) PO SCH ×4 (08:10→21:20)
[2020-02-04] MEDS: LEVOTHYROXINE 100MCG TABLET (0.1MG) PO SCH (08:10)
[2020-02-04] MEDS: ISOSORBIDE MON. (IMDUR) 30 MG XR TAB PO SCH (08:14)
[2020-02-04] MEDS: MIRALAX *UNIT DOSE* 17GM PACKET PO SCH ×2 (08:15→21:00)
[2020-02-04] MEDS: PANTOPRAZOLE 40MG TAB (PROTONIX) PO SCH ×2 (09:52→21:20)
--- NOTE | 2020-02-04 09:56 | IPNPDOC ---
Text Note Date of Service The patient was seen on 02/04/20. NOTE Subjective: Patient is a 79-year-old female with a PMHx of Paroxysmal A. fib (on Eliquis), OA (on Naprosyn), Hypothyroidism, who presented to the ER with abdominal pain and melanotic stools. In the emergency room, patient was found to have a hemoglobin of 5.4. Patient was admitted to the hospitalist service for further evaluation and treatment. She received 4 units of PRBC transfusion and was taken for upper and lower endoscopy with Dr. Webb. Throughout hospitalization. Patient was found to have thrombocytopenia, which was thought to be secondary to consumptive etiology secondary to her GI bleeding. Patient was seen and examined at the bedside. . Currently, patient reports that they're feeling fine. He noted that he had a bowel movement this morning without any evidence of blood. Has denied chest pain, shortness breath, palpitations as has not experienced nausea, vomiting or urinary discomfort. Objective: Vitals (See below) General: Sitting up in chair, appears to be comfortable, awake / alert HEENT: NC, AT CVS: +S1S2 Lungs: Air entry appears to be clear bilaterally, without auscultated rhonchi, crackles or wheezing Abdomen: Soft without distention Extremities: Extremities are without any edema, - Calf tenderness Imaging: - CT abdomen / pelvis 01/22: 1. Trace pericholecystic fluid. No secondary signs of cholecystitis or biliary duct dilation. Consider follow-up gallbladder ultrasound if there is concern for acute cholecystitis. 2. Mild urinary bladder wall thickening suggesting cystitis. 3. Nonobstructing calyceal stones in the kidneys. No hydronephrosis. - Gallbladder US 01/22: 1. Mild gallbladder wall thickening may be seen in the setting of cholecystitis but is not diagnostic. No biliary duct dilation. Mild gallbladder adenomyomatosis. 2. Nonobstructing calyceal stones in the right kidney. No hydronephrosis. - CXR 01/22: CHF pattern with vascular congestion and interstitial edema. Some increased markings right upper lobe compared to left. - CT head 01/22: 1. No acute intracranial abnormality. 2. Atrophy and chronic microangiopathic change in supratentorial white matter. - CXR 01/25: Marked improvement in CHF pattern since the January 23, 2020 study. No pleural effusion or new infiltrate. Heart near the upper range of normal in size. A loop recorder is visible. - CT Angio abd/pel 01/26: 1. There is a diffuse decrease in hepatic parenchymal density, consistent with steatosis. 2. Examination of the liver demonstrates a lobular surface contour, and enlargement of the left and caudate lobes, findings consistent with cirrhosis. 3. The gallbladder is incompletely distended. This is most likely related to incomplete fasting. Clinical correlation to exclude gallbladder pathology suggested. 4. There is diffuse pancreatic atrophy. 5. Punctate nonobstructive calculi right kidney. 6. There has been a hysterectomy. 7. There is increased fluid demonstrated in the colon consistent with diarrhea. No mass demonstrated. - CT Angio chest 01/23: No CT evidence of pulmonary embolus. Mild diffuse alveolar edema pattern with cardiomegaly and small right pleural effusion, question CHF. Otherwise no active disease. - XR L foot 01/27: No acute bony abnormality. Vascular calcification and mild osteoarthritic changes. Accessory ossicle adjacent to the distal fibula. - CXR 01/28: Prominent heart. Otherwise no acute disease. No pleural effusion is seen. A loop recorder is visible. Assessment and plan: s/p Acute blood loss anemia - likely 2/2 GI bleed - Patient is reported that they have had bowel movements yesterday and today without any evidence of blood - Hemodynamically stable and afebrile - s/p 6 units of PRBC; will continue to check and hemoglobin to ensure stability - EGD 01/31: Normal esophagus, normal stomach, normal ampulla, first portion of the duodenum, second portion of the day on him and third portion of the duodenum - Colonoscopy 01/31: Portion of the ileum was normal, mild diverticulosis in sigmoid colon, there was no evidence of diverticular bleeding, nonbleeding external, internal hemorrhoids, examination was otherwise normal on direct and retroflexion views - c/w Protonix; will transition to PO; will transition to Famotidine on discharge - c/w high fiber diet - Patient will likely require - Gastroenterology on consultation; appreciate their input s/p Sepsis - 2/2 UTI - Remains hemodynamically stable and afebrile - UA with evidence of infection; Urine culture 01/22: E. Coli - s/p Ceftriaxone x 3 days; s/p Augmentin x 4 days NSTEMI Type II - likely 2/2 symptomatic anemia - Cardiology on consultation; patient will likely require stress testing to be completed as an outpatient Thrombocytopenia - likely 2/2 consumptive etiology - 2/2 GI bleed - Currently, patient's platelet count has remained stable - HIT antibody negative - Avoiding anticoagulation - Oncology / Hematology on consultation; appreciate their input Chronic atrial fibrillation - c/w rate control with metoprolol - Currently off full anticoagulation (re: GI bleed / thrombocytopenia) - Patient will remain off of anticoagulation on discharge and will have outpatient follow-up with cardiology and oncology HTN - BP well controlled - c/w Metoprolol and Isosorbide mononitrate Chronic back - Patient follows with pain management as an outpatient - c/w Dilaudid PO / Tizanidine Hypothyroidism - c/w Levothyroxine DM2 - c/w ISS DVT prophylaxis - c/w TEDs/Sequentials VS,Fishbone, I+O VS, Fishbone, I+O Laboratory Tests 02/04/20 05:29 Vital Signs Date Time Temp Pulse Resp B/P (MAP) Pulse Ox O2 Delivery O2 Flow Rate FiO2 02/04/20 08:14 181/93 02/04/20 06:18 16 02/04/20 06:00 98.2 62 92 Room Air I&O- Last 24 Hours up to 6 AM 02/04/20 06:00 Intake Total 2145 ml Output Total 650 ml Balance 1495 ml KEON HERNANDEZ MD Feb 04, 2020 09:56
[2020-02-04 12:17] LABS: HEMATOCRIT 30.5 % (36.0-47.0); HEMOGLOBIN 10.6 g/dl (12.0-15.5)
[2020-02-04 14:00] VITALS: BP 141/84
[2020-02-04] MEDS ORDERED: PILL CUTTER 1 EACH XX PRN (18:00)
[2020-02-04 18:14] LABS: HEMATOCRIT 32.6 % (36.0-47.0); HEMOGLOBIN 11.3 g/dl (12.0-15.5)
[2020-02-04 22:00] VITALS: BP 126/72
[2020-02-04] MEDS: RAMELTEON 8 MG TAB (ROZEREM) PO PRN (23:53)
[2020-02-05 00:24] LABS: HEMATOCRIT 32.1 % (36.0-47.0); HEMOGLOBIN 11.1 g/dl (12.0-15.5)
[2020-02-05] MEDS: HYDROmorphone 2 MG TAB PO PRN ×3 (04:12→13:09)
[2020-02-05] MEDS: METOPROLOL TART 50 MG TAB PO SCH ×2 (05:50→13:11)
[2020-02-05 06:00] VITALS: BP 114/79
[2020-02-05] MEDS ORDERED: DICLOFENAC EPOLAMINE 1.3 % PATCH TOP SCH (06:00)
[2020-02-05 06:07] LABS: HEMATOCRIT 30.6 % (36.0-47.0); HEMOGLOBIN 10.4 g/dl (12.0-15.5); MEAN CORPUSCULAR HEMOGLOBIN 30.1 pg (27.0-33.0); MEAN CORPUSCULAR VOLUME 88.4 fl (80.0-96.0); RED BLOOD COUNT 3.46 10^6/uL (4.00-5.40); WHITE BLOOD COUNT 4.5 10^3/uL (4.0-10.0)
[2020-02-05 06:16] LABS: PLATELET COUNT, AUTOMATED 28 10^3/uL (150-450)
[2020-02-05 06:33] LABS: BLOOD UREA NITROGEN 16 MG/DL (7-18); CALCIUM LEVEL 8.7 MG/DL (8.8-10.2); CARBON DIOXIDE LEVEL 27 MEQ/L (21-32); CHLORIDE LEVEL 103 MEQ/L (98-107); CREATININE FOR GFR 0.77 MG/DL (0.55-1.30); GLOMERULAR FILTRATION RATE > 60.0 (>39); GLUCOSE, FASTING 112 MG/DL (70-100); POTASSIUM SERUM 4.3 MEQ/L (3.5-5.1); SODIUM LEVEL 136 MEQ/L (136-145)
[2020-02-05] MEDS: HumaLOG INSULIN (NovoLOG) PER UNIT SC SCH ×2 (08:39→13:11)
[2020-02-05] MEDS: POTASSIUM CHLORIDE 10 MEQ SR TABLET PO SCH (08:40)
[2020-02-05] MEDS: LACTOBACILLUS ACIDOPHILUS CAP (BACID) PO SCH ×2 (08:40→13:09)
[2020-02-05] MEDS: LEVOTHYROXINE 100MCG TABLET (0.1MG) PO SCH (08:40)
[2020-02-05] MEDS: PANTOPRAZOLE 40MG TAB (PROTONIX) PO SCH (08:40)
[2020-02-05] MEDS: MIRALAX *UNIT DOSE* 17GM PACKET PO SCH (08:46)
[2020-02-05] MEDS: ISOSORBIDE MON. (IMDUR) 30 MG XR TAB PO SCH (08:46)
[2020-02-05] MEDS ORDERED: MELA5TAB20 PO (10:16)
[2020-02-05] MEDS ORDERED: PEG1POW PO (10:16)
[2020-02-05] MEDS ORDERED: DICL1PAT6 TOP (10:16)
[2020-02-05] MEDS ORDERED: FAMO40TA3 PO (10:16)
[2020-02-05] MEDS ORDERED: METO50TA7 PO (10:16)
[2020-02-05] MEDS ORDERED: RISATAB3 PO (10:16)
[2020-02-05] MEDS ORDERED: DILA2TAB6 PO (10:16)
[2020-02-05 13:11] VITALS: BP 130/57
[2020-02-05 14:00] VITALS: BP 117/59
--- NOTE | 2020-02-05 14:57 | DS.PDOC ---
Discharge Summary General Date of Admission Jan 23, 2020 at 05:41 Date of Discharge 02/05/2020 Discharge Summary PROCEDURES PERFORMED DURING STAY: EGD and Colonoscopy on 01/[address] Webb ADMITTING DIAGNOSES / DISCHARGE DIAGNOSES: s/p Acute blood loss anemia - likely 2/2 GI bleed in the setting of pancytopenia s/p Sepsis - 2/2 UTI NSTEMI Type II - likely 2/2 symptomatic anemia Thrombocytopenia - possibly 2/2 bone marrow suppression, less likely 2/2 consumptive etiology Chronic atrial fibrillation HTN Chronic back Hypothyroidism DM2 DVT prophylaxis COMPLICATIONS/CHIEF COMPLAINT: Weakness / Blood in stool HISTORY OF PRESENT ILLNESS: Patient is a 79-year-old female with a PMHx of Paroxysmal A. fib (on Eliquis), OA (on Naprosyn), Hypothyroidism, who presented to the ER with abd ominal pain and melanotic stools. In the emergency room, patient was found to have a hemoglobin of 5.4. Patient was admitted to the hospitalist service for further evaluation and treatment. She received 4 units of PRBC transfusion and was taken for upper and lower endoscopy with Dr. Webb. HOSPITAL COURSE: s/p Acute blood loss anemia - likely 2/2 GI bleed in the setting of pancytopenia - Patient is no longer experienced any episodes of bloody bowel movements - Hemodynamically stable and afebrile - s/p 6 units of PRBC; hemoglobin has remained stable - EGD 01/31: Normal esophagus, normal stomach, normal ampulla, first portion of the duodenum, second portion of the day on him and third portion of the duodenum - Colonoscopy 01/31: Portion of the ileum was normal, mild diverticulosis in s igmoid colon, there was no evidence of diverticular bleeding, nonbleeding external, internal hemorrhoids, examination was otherwise normal on direct and retroflexion views - c/w Famotidine on discharge - c/w high fiber diet - Gastroenterology and Oncology on consultation; appreciate their input - Discussed case with both specialties; at this time; here is a thought that she could be having bone marrow suppression, Oncology will continue to follow up with her as an outpatient to determine need for bone marrow biopsy - Currently, patient has not experienced any active bleeding and has remained hemodynamically stable with a stable hemoglobin; patient will ultimately require close follow-up with gastroenterology and oncology - We have discussed the potential for rebleeding and at this point patient feels comfortable going home and following up with him as an outpatient - She has been instructed about alarm symptoms that should be addressed immediately (including returning to the ER) s/p Sepsis - 2/2 UTI - Remains hemodynamically stable and afebrile - UA with evidence of infection; Urine culture 01/22: E. Coli - s/p Ceftriaxone x 3 days; s/p Augmentin x 4 days NSTEMI Type II - likely 2/2 symptomatic anemia - Cardiology on consultation; patient will likely require stress testing to be completed as an outpatient Thrombocytopenia - possibly 2/2 bone marrow suppression, less likely 2/2 consumptive etiology - Currently, patient's platelet count has remained stable - HIT antibody negative - Avoiding anticoagulation - Oncology / Hematology on consultation; appreciate their input Chronic atrial fibrillation - c/w rate control with metoprolol - Currently off full anticoagulation (re: GI bleed / pancytopenia / thrombocytopenia) - Patient will remain off of anticoagulation on discharge and will have outpatient follow-up with cardiology and oncology HTN - BP well controlled - c/w Metoprolol and Isosorbide mononitrate Chronic lower back pain / sciatica - Initially reported lower back pain radiating down leg - Currently patient's back pain has improved significantly with a current regimen - Patient follows with pain management as an outpatient and was prescribed Dilaudid recently by her outpatient provider - c/w Dilaudid PO / Tizanidine - Patient has progressed with PT and ambulating without any difficulty alone - Will provide short duration of pain medications at adjusted regimen until she can follow-up with her primary care provider/ existing pain management provider Hypothyroidism - c/w Levothyroxine DM2 - c/w ISS DVT prophylaxis - c/w TEDs/Sequentials DISCHARGE MEDICATIONS: Please see below. ALLERGIES: Please see below. PHYSICAL EXAMINATION ON DISCHARGE: Vitals (See below) General: Sitting up in chair, appears to be comfortable, awake / alert HEENT: NC, AT CVS: +S1S2 Lungs: There appears to be fair air entry bilaterally without evidence rhonchi, crackles or wheezing Abdomen: No distention, tenderness and does remain soft Extremities: No edema. At lower extremities, - Calf tenderness LABORATORY DATA: Please see below. IMAGING: - CT abdomen / pelvis 01/22: 1. Trace pericholecystic fluid. No secondary signs of cholecystitis or biliary duct dilation. Consider follow-up gallbladder ultrasound if there is concern for acute cholecystitis. 2. Mild urinary bladder wall thickening suggesting cystitis. 3. Nonobstructing calyceal stones in the kidneys. No hydronephrosis. - Gallbladder US 01/22: 1. Mild gallbladder wall thickening may be seen in the setting of cholecystitis but is not diagnostic. No biliary duct dilation. Mild g allbladder adenomyomatosis. 2. Nonobstructing calyceal stones in the right kidney. No hydronephrosis. - CXR 01/22: CHF pattern with vascular congestion and interstitial edema. Some increased markings right upper lobe compared to left. - CT head 01/22: 1. No acute intracranial abnormality. 2. Atrophy and chronic microangiopathic change in supratentorial white matter. - CXR 01/25: Marked improvement in CHF pattern since the January 23, 2020 study. No pleural effusion or new infiltrate. Heart near the upper range of normal in size. A loop recorder is visible. - CT Angio abd/pel 01/26: 1. There is a diffuse decrease in hepatic parenchymal density, consistent with steatosis. 2. Examination of the liver demonstrates a lobular surface contour, and enlargement of the left and caudate lobes, findings consistent with cirrhosis. 3. The gallbladder is incompletely distended. This is most likely related to incomplete fasting. Clinical correlation to exclude gallbladder pathology suggested. 4. There is diffuse pancreatic atrophy. 5. Punctate nonobstructive calculi right kidney. 6. There has been a hysterectomy. 7. There is increased fluid demonstrated in the colon consistent with diarrhea. No mass demonstrated. - CT Angio chest 01/23: No CT evidence of pulmonary embolus. Mild diffuse yulissa eolar edema pattern with cardiomegaly and small right pleural effusion, question CHF. Otherwise no active disease. - XR L foot 01/27: No acute bony abnormality. Vascular calcification and mild osteoarthritic changes. Accessory ossicle adjacent to the distal fibula. - CXR 01/28: Prominent heart. Otherwise no acute disease. No pleural effusion is seen. A loop recorder is visible. ACTIVITY: [As tolerated]. DISCHARGE PLAN: Patient has been advised to follow-up with her primary care provider, gastroenterology, oncology, cardiology, pain management within 7 days She has been advised to remain compliant with treatment plan and medications Patient has been given a prescription for blood work to be completed in 2 days Patient has been advised to return to the ER if she experiences any problems DISPOSITION: Home with services DISCHARGE CONDITION: [Stable]. TIME SPENT ON DISCHARGE: 35 minutes. Vital Signs/I&Os Vital Signs Date Time Temp Pulse Resp B/P (MAP) Pulse Ox O2 Delivery O2 Flow Rate FiO2 02/05/20 14:00 97.6 91 17 117/59 (78) 97 Room Air I&O- Last 24 Hours up to 6 AM 02/05/20 05:59 Intake Total 740 ml Output Total 0 ml Balance 740 ml Laboratory Data Labs 24H Laboratory Tests 2 02/04/20 16:34: Bedside Glucose (Misc Panel) 124H 02/04/20 17:50: Reticulocyte # (auto) 13.6L, Percent Reticulocyte Count 0.4L, Reticulocyte Hemoglobin Equivalent 30.7 02/04/20 21:01: Bedside Glucose (Misc Panel) 135H 02/05/20 05:32: Nucleated Red Blood Cells % (auto) 0.0, Immature Platelet Fraction 6.3, Anion Gap 6L, Glomerular Filtration Rate > 60.0, Calcium Level 8.7L 02/05/20 11:25: Urine Color YELLOW, Urine Appearance CLEAR, Urine pH 5.0, Urine Specific Frontier 1.016, Urine Protein NEGATIVE, Urine Glucose (UA) 1+H, Urine Ketones NEGATIVE, Urine Blood 2+H, Urine Nitrite NEGATIVE, Urine Bilirubin NEGATIVE, Urine Urobilinogen 0.2, Urine Leukocyte Esterase 1+H, Urine WBC (Auto) 12H, Urine RBC (Auto) 12H, Urine Hyaline Casts (Auto) 0, Urine Bacteria (Auto) NEGATIVE, Urine Squamous Epithelial Cells 1, Urine Mucus (Auto) SMALL, Urine Sperm (Auto) 02/05/20 12:00: Bedside Glucose (Misc Panel) 171H CBC/BMP Laboratory Tests 02/04/20 17:50 02/05/20 00:11 02/05/20 05:32 FSBS Laboratory Tests Test 02/04/20 16:34 02/04/20 21:01 02/05/20 12:00 Range/Units Bedside Glucose (Misc Panel) 124 135 171 83-110 MG/DL Microbiology Microbiology 02/05/20 Urine Culture, Received Pending 01/31/20 Respiratory Virus Panel (PCR) (PASQUALE) - Final, Complete 01/30/20 Stool Occult Blood (PASQUALE) - Final, Complete 01/29/20 Urine Culture - Final, Complete Discharge Medications Scheduled Famotidine (Famotidine) 40 Mg Tablet, 40 MG PO DAILY, (Reported) Isosorbide Mononitrate (Isosorbide Mononitrate ER) 30 Mg Tab.er.24h, 30 MG PO DAILY, (Reported) L.acidoph/L.bulg/B.bif/S.therm (Sharon-Bid Caplet) 1 Each Tablet, 1 TAB PO WMHS, (Reported) Levothyroxine Sodium (Synthroid) 100 Mcg Tablet, 100 MCG PO DAILY, (Reported) Melatonin (Melatonin) 5 Mg Tablet, 5 MG PO QHS, (Reported) Metformin HCl (Metformin HCl) 500 Mg Tab, 1,000 MG PO BID, (Reported) 2ND DOSE AT 1730 Metoprolol Tartrate (Metoprolol Tartrate) 50 Mg Tablet, 100 MG PO BID, (Reported) Potassium Chloride (Potassium Chloride) 10 Meq Tablet.er, 10 MEQ PO BID, (Reported) Scheduled PRN Diclofenac Epolamine (Diclofenac Epolamine) 1 Each Patch.td12, 1 PATCH TOP Q12H PRN for PAIN, (Reported) APPLY TO LOWER BACK Hydromorphone HCl (Dilaudid) 2 Mg Tablet, 3 MG PO Q4H PRN for MODERATE/SEVERE PAIN (PS 5-10), (Reported) Polyethylene Glycol 3350 (Polyethylene Glycol 3350) 17 Gm Powd.pack, 17 GRAM PO DAILY PRN for CONSTIPATION, (Reported) Tizanidine HCl (Tizanidine HCl) 2 Mg Tablet, 2 MG PO QID PRN for MUSCLE SPASMS, (Reported) Allergies Coded Allergies: Sulfa (Sulfonamide Antibiotics) (Verified Allergy, Intermediate, HIVES, 04/29/19) KEON HERNANDEZ MD Feb 05, 2020 14:57
[2021-01-27] MEDS ORDERED: NS 500 ML IV ONE (22:16)
== END 2020-02-05 15:18 | disposition home health service (06) | DRG 871 ==
LOC: EDBD 01:47 → M ED 01:47 → M ED INP 05:41 → ENRESERV 06:22 → M PCU 07:07 → M MSPAV 01-27 15:09
PROVIDERS: ADMIT Internal Medicine; ATTEND Internal Medicine
PROC: 30233N1 Transfusion of Nonautologous Red Blood Cells into Peripheral Vein, Percutaneous Approach (ICD-10-PCS; principal; 2020-01-23)
PROC: 0DJ08ZZ Inspection of Upper Intestinal Tract, Via Natural or Artificial Opening Endoscopic (ICD-10-PCS; 2020-02-01)
PROC: 0DJD8ZZ Inspection of Lower Intestinal Tract, Via Natural or Artificial Opening Endoscopic (ICD-10-PCS; 2020-02-01)
DX: A41.9 Sepsis, unspecified organism (principal); I21.A1 Myocardial infarction type 2; J96.00 Acute respiratory failure, unspecified whether with hypoxia or hypercapnia; K92.2 Gastrointestinal hemorrhage, unspecified; D62 Acute posthemorrhagic anemia; N30.00 Acute cystitis without hematuria; D68.32 Hemorrhagic disorder due to extrinsic circulating anticoagulants; D61.818 Other pancytopenia; N17.9 Acute kidney failure, unspecified; I48.20 Chronic atrial fibrillation, unspecified; E87.71 Transfusion associated circulatory overload; I10 Essential (primary) hypertension; E11.9 Type 2 diabetes mellitus without complications; D69.6 Thrombocytopenia, unspecified; R63.4 Abnormal weight loss; D72.819 Decreased white blood cell count, unspecified; E78.5 Hyperlipidemia, unspecified; M54.5 Low back pain; E03.9 Hypothyroidism, unspecified; Z79.01 Long term (current) use of anticoagulants; Z79.84 Long term (current) use of oral hypoglycemic drugs; Z79.899 Other long term (current) drug therapy; Z90.49 Acquired absence of other specified parts of digestive tract; Z88.2 Allergy status to sulfonamides; Z95.818 Presence of other cardiac implants and grafts; Z11.59 Encounter for screening for other viral diseases; K57.30 Diverticulosis of large intestine without perforation or abscess without bleeding; K64.8 Other hemorrhoids; K64.4 Residual hemorrhoidal skin tags

== ENCOUNTER 2020-02-09 07:40 | Inpatient (IN) | payer MEDICARE ==
[~2020-02-09] VITALS: Ht 157.5 cm; Wt 70.5 kg
[~2020-02-09 07:40] MED LIST changes: +DICL1PAT6 TOP; +DILA2TAB6 PO; +FAMO40TA3 PO; +HYDR2TAB2 PO; +MELA5TAB20 PO; +PEG1POW PO; +POTA1TAB23 PO; +RISATAB3 PO; +SYNT100T PO; +TIZA2TAB6 PO
[2020-02-09] MEDS ORDERED: NS 500 ML IV ONE (08:15)
[2020-02-09 08:31] LABS: EOS % 0.4 % (0.0-3.0); HEMOGLOBIN 10.3 g/dl (12.0-15.5); LYMPH # 2.5 10^3/uL (1.5-5.0); LYMPH % 44.5 % (24.0-44.0); MEAN CORPUSCULAR HEMOGLOBIN 29.9 pg (27.0-33.0); MEAN CORPUSCULAR HGB CONC 33.2 g/dl (32.0-36.5); MEAN CORPUSCULAR VOLUME 89.9 fl (80.0-96.0); MONO # 0.8 10^3/uL (0.0-0.8); MONO % 14.1 % (0.0-5.0); NEUTROPHILS # 2.3 10^3/uL (1.5-8.5); NEUTROPHILS % 40.6 % (36.0-66.0); RED BLOOD COUNT 3.45 10^6/uL (4.00-5.40); WHITE BLOOD COUNT 5.7 10^3/uL (4.0-10.0)
[2020-02-09] MEDS: HYDROMORPHONE HCL 0.5 MG/ 0.5 ML SYRINGE (J1170 PER 1) IV PRN ×4 (08:37→13:16)
[2020-02-09 08:38] LABS: PLATELET COUNT, AUTOMATED 28 10^3/uL (150-450)
[2020-02-09 08:40] LABS: INR 1.13; PROTHROMBIN TIME 14.2 SECONDS (11.8-14.0)
[2020-02-09 08:41] LABS: PARTIAL THROMBOPLASTIN TIME 32.8 SECONDS (25.0-38.4)
[2020-02-09 08:59] LABS: ALBUMIN 3.6 GM/DL (3.2-5.2); BILIRUBIN,DIRECT 0.4 MG/DL (0.0-0.2); BILIRUBIN,TOTAL 1.2 MG/DL (0.2-1.0); CK-MB VALUE MASS 1.4 NG/ML (<3.6); MB/CK RELATIVE INDEX 8.75 (< OR =4); TOTAL PROTEIN 7.4 GM/DL (6.4-8.2); TROPONIN I 0.25 NG/ML (< 0.10)
[2020-02-09] MEDS ORDERED: ISOVUE-370 76% 100ML VIAL As Ordered ONE (09:09)
[2020-02-09] MEDS ORDERED: KETOROLAC 30 MG/ML 1ML VIAL IV ONE (11:15)
[2020-02-09 14:08] LABS: CK-MB VALUE MASS 1.2 NG/ML (<3.6); MB/CK RELATIVE INDEX 6.67 (< OR =4); TROPONIN I 0.26 NG/ML (< 0.10)
--- NOTE | 2020-02-09 14:14 | REP ---
REASON: Chest pain. COMPARISON: 01/24/2020 which showed no evidence of and embolus, however, a smaller pleural effusion is seen with possible pulmonary edema. CONTRAST: 100 mL Isovue 370. There is excellent visualization of the pulmonary arterial vasculature. Multiple filling defects have developed that would be considered consistent with acute pulmonary emboli. There is no mediastinal or hilar adenopathy. There are no pleural or pericardial effusions. There is no change in the imaged upper abdomen or imaged osseous structures. Evaluation of the lung kincaid shows evidence of mild chronic fibrotic changes status quo. No significant nodules, masses or abnormal opacity has developed. The suspected edema pattern seen previously has resolved. The thoracic aorta is unremarkable in appearance. IMPRESSION: 1. No pulmonary embolus. 2. Chronic changes are suspected as described above. Electronically Signed by Abebe Skelton DO 02/09/2020 05:26 P
--- NOTE | 2020-02-09 14:19 | REP ---
REASON: Abdominal pain . COMPARISON: 01/27/2020 CONTRAST: 100 mL Isovue 370. There are no enhancing hepatic lesions. The gallbladder, spleen, pancreas adrenal glands and kidneys are unchanged and again seen to be within normal limits for the patient's age. The bowel loops and their mesenteries are within normal limits. No free fluid or free air is seen in the abdomen or pelvis. There is no intra-abdominal or intrapelvic mass or adenopathy. Bone window technique through the examination again shows a grade 2-3 L1 compression fracture which is unchanged. The abdominal aorta and para-aortic regions are unchanged. IMPRESSION: No acute disease or significant change from the prior exam. Electronically Signed by Abebe Skelton DO 02/09/2020 05:26 P
[2020-02-09] MEDS ORDERED: diazePAM 10MG/2ML SYRINGE (J3360 PER 5MG) IV ONE (16:30)
[2020-02-09] MEDS ORDERED: MELA1TAB9 PO (16:47)
[2020-02-09] MEDS ORDERED: RISATAB3 PO (16:47)
[2020-02-09] MEDS ORDERED: DILA2TAB6 PO (16:47)
[2020-02-09] MEDS ORDERED: FAMO40TA3 PO (16:47)
[2020-02-09] MEDS ORDERED: METO50TA7 PO (16:47)
[2020-02-09] MEDS ORDERED: DICL1PAT6 TOP (16:47)
[2020-02-09] MEDS ORDERED: POLY1POW38 PO (16:48)
[2020-02-09] MEDS ORDERED: DEXTROSE 50% 50 ML SYRINGE IV PRN (18:15)
[2020-02-09] MEDS ORDERED: MOM 30ML SUSPENSION UDC PO PRN (18:15)
[2020-02-09] MEDS ORDERED: GLUCOSE 4GM CHEW TABLET PO PRN (18:15)
[2020-02-09] MEDS ORDERED: GLUCAGON INJ 1MG VIAL SC PRN (18:15)
[2020-02-09] MEDS ORDERED: ACETAMINOPHEN TAB 650MG DOSE (2X325MG) PO PRN (18:15)
[2020-02-09] MEDS ORDERED: MAALOX 30 ML SUSP *UDC PO PRN (18:15)
[2020-02-09 18:22] LABS: BILIRUBIN, URINE MANUAL NEGATIVE (NEGATIVE); GLUCOSE, URINE (UA) MANUAL NEGATIVE (NEGATIVE); KETONE, URINE MANUAL NEGATIVE (NEGATIVE); UROBILINOGEN, URINE MANUAL NORMAL (NORMAL)
[2020-02-09 18:24] LABS: BACTERIA, URINE SMALL AMOUNT; RBC, URINE 0-1 /hpf (0-3); RENAL EPITHELIAL CELLS, URINE SMALL AMOUNT /hpf; SQUAMOUS EPITHELIAL CELL URINE LARGE AMOUNT /hpf (SMALL AMT); YEAST, URINE SMALL AMOUNT
[2020-02-09] MEDS ORDERED: PILL CUTTER 1 EACH XX PRN (18:30)
--- NOTE | 2020-02-09 18:50 | HPEPDOC ---
[facility] Medical History & Physical Date of Admission Feb 09, 2020 Date of Service: Feb 09, 2020 Primary Care Physician: Jakub Burgess MD Attending Physician: EUNICE BONILLA MD History and Physical CHIEF COMPLAINT: Neck pain, paresthesias HISTORY OF PRESENT ILLNESS: 79-year-old female who presented to the emergency department today for 3 days of worsening back pain and paresthesias. The patient was recently admitted on 01/23/20 for GI bleed and was subsequently discharged on 02/05/20. She states that when she initially returned home. Her pain was about at her baseline. However, over the past 3 days she has had worsening pain up to a 10 out of 10. She cannot describe the character of the pain to me. She states that she cannot move without having sharp pain. She also endorses paresthesias in bilateral arms and legs, which extended from her fingertips up to her shoulders and from her toes up to the tops of her thighs. She states she has had occasional numbness and tingling in the past but never to this extent. She denies any changes over the past few days at home or any inciting incident prior to her increased pain. She has had multiple doses of pain medications while in the ED without much effect. She states she has been taking her regularly scheduled medications at home, but they have not been helping. She does follow with pain management and has received spine injections. On review of her chart, Dr. Grover had referred her to a neuro surgeon for further evaluation (referral sent 01/07/20), but she has not yet seen the neurosurgeon. She has also been seen previously by orthopedic surgery in [place] for her back pain but denies ever having surgery for this. PAST MEDICAL HISTORY: 1. Type 2 diabetes mellitus 2. TIA. 3. Retention. 4. Atrial fibrillation. 5. Hypothyroidism. 6. Recurrent nephrolithiasis. 7. 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 9. Vertebral artery stenosis. 10. Chronic pain PAST SURGICAL HISTORY: 1., Appendectomy 2., Open removal of kidney stones 2. 3. Left tibial fracture repair 4. Left wrist fracture repair. 5. Exploratory laparotomy. 6. Hysterectomy. 7. Left breast lumpectomy, benign. 8. Right carpal tunnel release. 9. Bilateral cataracts removal. 11. Left hip arthroplasty. 12. Colonoscopy and EGD. 13. Cardiac ablation and loop recorder placement 08/19/19 SOCIAL HISTORY: Never smoker. Occasional alcohol use, less than once a week. Lives at home with her . FAMILY HISTORY: Father age 52, had esophageal cancer Mother age 86, heart attack, history of hypertension. One brother at age 62 of a heart attack. One son with hypothyroidism. ALLERGIES: Please see below. REVIEW OF SYSTEMS: CONSTITUTIONAL: Denies fevers, chills, night sweats, fatigue. HEENT: Denies change in vision, change in hearing. CARDIOVASCULAR: Endorses chest pressure and palpitations. Denies shortness of breath, lightheadedness. RESPIRATORY: Denies dyspnea, cough, wheezing. GASTROINTESTINAL: Denies nausea, vomiting, abdominal pain, diarrhea, constipa tion, blood in stool. GENITOURINARY: Denies dysuria, urinary frequency, urinary urgency. SKIN: Denies rash, lesions. MUSCULOSKELETAL: Endorses pain as per HPI. NEUROLOGICAL: Denies headache, dizziness. PSYCHIATRIC: Denies change in mood. HOME MEDICATIONS: Please see below. PHYSICAL EXAMINATION: VITAL SIGNS: See below GENERAL: Alert, comfortable, in no acute distress HEENT: Normocephalic, atraumatic, PERRLA, EOMI, sclerae anicteric, conjunctiva clear, moist mucous membranes NECK: Supple, trachea midline, no lymphadenopathy, no JVD CARDIOVASCULAR: Tachycardic with regular rhythm, normal S1 and S2. No murmurs, rubs, or gallops RESPIRATORY: Clear to auscultation bilaterally with equal air entry bilaterally. No wheezing, rhonchi, or rales. ABDOMEN: Soft, nontender, nondistended, bowel sounds present, no masses or hepatosplenomegaly appreciated EXTREMITIES: No cyanosis or edema. Pulses 2+/4 in bilateral upper and lower extremities MUSCULOSKELETAL: Tenderness to palpation over the lower cervical spinous processes and paraspinal musculature. SKIN: [place], warm, dry NEUROLOGIC: Alert and oriented x3 to person, place and time. Cranial nerves 2-12 grossly intact. No focal deficits appreciated PSYCHIATRIC: Mood and affect appropriate LABORATORY DATA: See below. IMAGING: - Head CT: Report pending - Cervical spine CT: Report pending - CTA chest: No pulmonary embolus. Chronic changes are suspected as described above - CT abdomen/pelvis: No acute disease or significant change from the prior exam MICROBIOLOGY: Please see below. ASSESSMENT: 79-year-old female with a history of chronic back pain and degenerative disc disease in her spine presents with 3 days of acute on chronic pain, worse in the neck and extending throughout her spine with paresthesias in bilateral upper and lower extremities, admitted for pain control and further evaluation by neurology and orthopedic surgery PLAN: 1. Acute on chronic neck and back pain with new onset paresthesias Acutely worsened over the past 3 days without any clear inciting incident Orthopedic surgery consulted, appreciate their input and recommendations. Neurology consulted, appreciate their input and recommendations. Continue home medications including oral Dilaudid, diclofenac patches, and tizanidine. Additionally started patient on Cymbalta 20 MG daily and gabapentin 100 mg 3 times a day Cannot proceed with MRI for further evaluation as she has a loop recorder which was placed in August 2019 Blood cultures 2 pending to help rule out possible infectious source such as discitis or abscess 2. Chronic anemia, stable Recently admitted for GI bleed, H&H stable from discharge. Continue to monitor H&H daily 3. Thrombocytopenia. Stable from recent admission. Continue to monitor daily. LFTs significant only for mildly elevated bilirubin. HIT antibody negative. Heme consult on prior admission, recommended outpatient follow-up for likely secondary thrombocytopenia with myelosuppression related to infection plus consumption related to GI bleed, expect platelet counts to improve over the course of 2 weeks. 4. Hypertension. Continue home isosorbide mononitrate and metoprolol Likely worsened due to pain, expect improvement with pain control 5. Possible UTI, unlikely as she is asymptomatic. Patient denies urinary symptoms, UA obtained in ED, positive for leukocyte esterase and small amount of bacteria. Urine culture pending. Will hold off on antibiotics as she has a symptomatic. 6. Atrial fibrillation status post ablation. Currently tachycardic, will monitor on telemetry. Continue home metoprolol. No anticoagulation due to GI bleed and low platelet count Mild troponin elevation in the ED which was stable on recheck. 7. Diabetes mellitus Hold home metformin while inpatient. Sliding scale insulin, hypoglycemic protocol, consistent carbohydrate diet 8. Hypothyroidism Continue home levothyroxine DVT prophylaxis: Teds and sequentials. Hold on medical prophylaxis due to low platelet count. Disposition: Admitted inpatient medical/surgical with telemetry pending evaluation by neurology and orthopedic surgery Attending attestation: Patient independently seen and evaluated, agree with resident's plan. Vital Signs Vital Signs Date Time Temp Pulse Resp B/P (MAP) Pulse Ox O2 Delivery O2 Flow Rate FiO2 02/09/20 17:45 102 02/09/20 17:18 142/65 (90) 98 Room Air 02/09/20 15:30 18 02/09/20 14:30 99.1 Laboratory Data Labs 24H Laboratory Tests 2 02/09/20 08:15: Immature Granulocyte % (Auto) 0.4, Neutrophils (%) (Auto) 40.6, Lymphocytes (%) (Auto) 44.5H, Monocytes (%) (Auto) 14.1H, Eosinophils (%) (Auto) 0.4, Basophils (%) (Auto) 0.0, Neutrophils # (Auto) 2.3, Lymphocytes # (Auto) 2.5, Monocytes # (Auto) 0.8, Eosinophils # (Auto) 0.0, Basophils # (Auto) 0.0, Nucleated Red Blood Cells % (auto) 0.0, Immature Platelet Fraction 4.3, Prothrombin Time 14.2 H, Prothromb Time International Ratio 1.13, Activated Partial Thromboplast Time 32.8, Lactic Acid Level 1.7, Total Bilirubin 1.2H, Direct Bilirubin 0.4H, Aspartate Amino Transf (AST/SGOT) 22, Alanine Aminotransferase (ALT/SGPT) 38, Alkaline Phosphatase 66, Total Creatine Kinase 16L, Creatine Kinase MB 1.4, Creatine Kinase MB Relative Index 8.75H, Troponin I 0.25H, Total Protein 7.4, Albumin 3.6, Albumin/Globulin Ratio 0.9L, Lipase 45L 02/09/20 08:36: POC Glucose (Misc Panel) 142H, POC Sodium (Misc Panel) 135L, POC Potassium (Misc Panel) 3.8, POC Chloride (Misc Panel) 95L, POC Total CO2 (Misc Panel) 25.0, POC Blood Urea Nitrogen (Misc Panel 10, POC Ionized Calcium (Misc Panel) 4.7, POC Creatinine (Misc Panel) 0.8, POC Hematocrit (Misc Panel) 29.0L 02/09/20 13:12: Total Creatine Kinase 18L, Creatine Kinase MB 1.2, Creatine Kinase MB Relative Index 6.67H, Troponin I 0.26H CBC/BMP Laboratory Tests 02/09/20 08:15 Microbiology Microbiology 02/09/20 Blood Culture, Received Pending 02/09/20 Blood Culture, Received Pending Home Medications Scheduled Duloxetine HCl (Cymbalta) 20 Mg Capsule.dr, 20 MG PO DAILY Famotidine (Famotidine) 40 Mg Tablet, 40 MG PO DAILY Gabapentin (Gabapentin) 300 Mg Capsule, 300 MG PO TID Isosorbide Mononitrate (Isosorbide Mononitrate ER) 30 Mg Tab.er.24h, 30 MG PO DAILY L.acidoph/L.bulg/B.bif/S.therm (Sharon-Bid Caplet) 1 Each Tablet, 1 TAB PO WMHS Levothyroxine Sodium (Synthroid) 100 Mcg Tablet, 100 MCG PO DAILY Magnesium Chloride (Mag64) 64 Mg Tablet.dr, 64 MG PO DAILY Melatonin (Melatonin) 5 Mg Tablet, 5 MG PO QHS Metformin HCl (Metformin HCl) 500 Mg Tab, 1,000 MG PO BID 2ND DOSE AT 1730 Metoprolol Tartrate (Metoprolol Tartrate) 50 Mg Tablet, 100 MG PO BID Potassium Chloride (Potassium Chloride) 10 Meq Tablet.er, 10 MEQ PO BID Quetiapine Fumarate (Quetiapine Fumarate) 50 Mg Tablet, 50 MG PO BID Scheduled PRN Diclofenac Epolamine (Diclofenac Epolamine) 1 Each Patch.td12, 1 PATCH TOP Q12H PRN for PAIN APPLY TO LOWER BACK Oxycodone/Acetaminophen (Oxycodone-Acetaminophen 5-325) 1 Each Tablet, 2 TAB PO Q6HP PRN for SEVERE PAIN (PS 8-10) Take 1-2 tabs every 6 hours for pain Polyethylene Glycol 3350 (Polyethylene Glycol 3350) 17 Gm Powd.pack, 17 GRAM PO DAILY PRN for CONSTIPATION Tizanidine HCl (Tizanidine HCl) 2 Mg Tablet, 2 MG PO QID PRN for MUSCLE SPASMS Allergies Coded Allergies: Sulfa (Sulfonamide Antibiotics) (Verified Allergy, Intermediate, HIVES, 04/29/19) INDIA GOLDSMITH D.O. Feb 09, 2020 18:50 EUNICE BONILLA MD Feb 13, 2020 10:33
[2020-02-09 18:57] LABS: HYALINE CAST, URINE NONE SEEN /lpf (0-1)
[2020-02-09] MEDS: HYDROmorphone 2 MG TAB PO PRN (19:13)
[2020-02-09] MEDS: tiZANidine 4 MG TAB PO PRN (20:38)
[2020-02-09] MEDS: METOPROLOL TARTRATE 100 MG TAB PO SCH (20:58)
[2020-02-09] MEDS: GABAPENTIN 100 MG CAP PO SCH (20:58)
[2020-02-09] MEDS: DOCUSATE SODIUM 100 MG CAP PO SCH (20:58)
[2020-02-09] MEDS: HumaLOG INSULIN (NovoLOG) PER UNIT SC SCH (21:00)
[2020-02-09] MEDS: LACTOBACILLUS ACIDOPHILUS CAP (BACID) PO SCH (21:00)
--- NOTE | 2020-02-09 21:19 | ECGEPIP ---
[facility] - ED Test Date: 2020-02-09 Pat Name: MARIAH BARAJAS Department: Room: - Gender: Female Channel Program Manager: surekha dumont : 1940 Requested By: JUVE Delaney Order Number: [id number] Reading MD: Andrea Cali Measurements Intervals [place] Rate: 95 P: 75 TX: 144 QRS: 25 QRSD: 78 T: 62 QT: 352 QTc: 444 Interpretive Statements SINUS RHYTHM WITH FREQUENT VENTRICULAR PREMATURE COMPLEXES WITH OCCASIONAL SUPRAVENTRICULAR PREMATURE COMPLEXES NSTTW ABNORMALITIES SIMILAR TO 01/28/20 Electronically Signed on 02-09-2020 21:19:23 EDT by Andrea Cali
[2020-02-09] MEDS: PIPERACILLIN/TAZOBACTAM SOD 3.375 GM in D5W MINI-BAG PLUS 50 ML IV SCH (23:17)
[2020-02-09] MEDS ORDERED: NS 1,000 ML, NS 1,000 ML IV STA (23:20)
[2020-02-09 23:45] LABS: VENOUS BASE EXCESS -1.6 (-2.0-2.0); VENOUS O2 SATURATION 99.4 % (60.0-80.0); VENOUS PARTIAL PRESSURE CO2 28.1 mmHg (38.0-50.0); VENOUS PARTIAL PRESSURE O2 197.8 mmHg (30.0-50.0); VENOUS PH 7.492 UNITS (7.330-7.430); VENOUS STANDARD HCO3 23.2 MEQ/L; VENOUS TOTAL CO2 21.9 MEQ/L (24.0-28.0)
[2020-02-10] VITALS (10 sets, daily range): BP systolic 86–141; BP diastolic 48–65
[2020-02-10] MEDS: HYDROmorphone 2 MG TAB PO PRN ×3 (05:33→16:37)
[2020-02-10] MEDS: LEVOTHYROXINE 100MCG TABLET (0.1MG) PO SCH (05:33)
[2020-02-10] MEDS: PIPERACILLIN/TAZOBACTAM SOD 3.375 GM in D5W MINI-BAG PLUS 50 ML IV SCH ×3 (05:33→18:10)
[2020-02-10 05:35] LABS: HEMATOCRIT 29.6 % (36.0-47.0); HEMOGLOBIN 9.6 g/dl (12.0-15.5); MEAN CORPUSCULAR HEMOGLOBIN 30.6 pg (27.0-33.0); MEAN CORPUSCULAR HGB CONC 32.4 g/dl (32.0-36.5); MEAN CORPUSCULAR VOLUME 94.3 fl (80.0-96.0); RED BLOOD COUNT 3.14 10^6/uL (4.00-5.40); WHITE BLOOD COUNT 5.2 10^3/uL (4.0-10.0)
[2020-02-10 05:36] LABS: PLATELET COUNT, AUTOMATED 28 10^3/uL (150-450)
[2020-02-10 06:10] LABS: ALBUMIN 2.8 GM/DL (3.2-5.2); ALT/SGPT 30 U/L (12-78); BILIRUBIN,TOTAL 1.2 MG/DL (0.2-1.0); BLOOD UREA NITROGEN 9 MG/DL (7-18); CALCIUM LEVEL 7.7 MG/DL (8.8-10.2); CARBON DIOXIDE LEVEL 23 MEQ/L (21-32); CHLORIDE LEVEL 108 MEQ/L (98-107); CREATININE FOR GFR 0.66 MG/DL (0.55-1.30); GLOMERULAR FILTRATION RATE > 60.0 (>39); GLUCOSE, FASTING 135 MG/DL (70-100); MAGNESIUM LEVEL 1.5 MG/DL (1.8-2.4); PHOSPHORUS LEVEL 3.2 MG/DL (2.5-4.9); POTASSIUM SERUM 4.7 MEQ/L (3.5-5.1); SODIUM LEVEL 139 MEQ/L (136-145); TOTAL PROTEIN 6.1 GM/DL (6.4-8.2)
[2020-02-10] MEDS ORDERED: MAG SULF 1GM/100ML (MAG RUN) 1 GM in IV 1 EA IV ONE (07:30)
[2020-02-10] MEDS: FAMOTIDINE 20 MG TAB PO SCH (07:55)
[2020-02-10] MEDS: HumaLOG INSULIN (NovoLOG) PER UNIT SC SCH ×4 (07:55→20:18)
[2020-02-10] MEDS: LACTOBACILLUS ACIDOPHILUS CAP (BACID) PO SCH ×4 (07:55→20:17)
[2020-02-10] MEDS: DOCUSATE SODIUM 100 MG CAP PO SCH ×2 (07:57→20:17)
[2020-02-10] MEDS: ISOSORBIDE MON. (IMDUR) 30 MG XR TAB PO SCH (07:57)
[2020-02-10] MEDS: DULoxetine 20 MG CAP (CYMBALTA) PO SCH (07:57)
[2020-02-10] MEDS: METOPROLOL TARTRATE 100 MG TAB PO SCH ×2 (07:58→20:17)
[2020-02-10] MEDS: GABAPENTIN 100 MG CAP PO SCH ×2 (07:58→16:35)
[2020-02-10] MEDS: tiZANidine 4 MG TAB PO PRN (08:56)
--- NOTE | 2020-02-10 12:09 | ECGEPIP ---
[facility] Test Date: 2020-02-09 Pat Name: MARIAH BARAJAS Department: Room: [place] [address] Gender: Female Environmental Protection Inspector: kyrie : 1940 Requested By: CANDICE KELLY Order Number: [id number] Reading MD: Neelam Fabian Measurements Intervals [place] Rate: 87 P: SD: 0 QRS: 13 QRSD: 72 T: 44 QT: 383 QTc: 462 Interpretive Statements ATRIAL FLUTTER/TACHYCARDIA WITH ABERRANT CONDUCTION OR VENTRICULAR PREMATURE COMPLEXES MODERATE ST DEPRESSION Electronically Signed on 02-10-2020 12:09:08 EDT by Neelam Fabian
--- NOTE | 2020-02-10 15:04 | CR.PDOC ---
[facility] Pain Clinic Consultation General Date of Consultation: 02/10/20 Chief Complaint The patient is a 79-year-old female admitted with a reason for visit of Intractable Back Pain. History of Present Illness 79-year-old female admitted for complaints of intractable back pain. Patient is currently taking 3 mg of hydromorphone every 4 hours as needed and feels this is not covering her pain. She is noted to have hypotension with said medication. Home Medications Scheduled Famotidine (Famotidine) 40 Mg Tablet, 40 MG PO DAILY, (Reported) Isosorbide Mononitrate (Isosorbide Mononitrate ER) 30 Mg Tab.er.24h, 30 MG PO DAILY, (Reported) L.acidoph/L.bulg/B.bif/S.therm (Sharon-Bid Caplet) 1 Each Tablet, 1 TAB PO WMHS, (Reported) Levothyroxine Sodium (Synthroid) 100 Mcg Tablet, 100 MCG PO DAILY, (Reported) Melatonin (Melatonin) 5 Mg Tablet, 5 MG PO QHS, (Reported) Metformin HCl (Metformin HCl) 500 Mg Tab, 1,000 MG PO BID, (Reported) 2ND DOSE AT 1730 Metoprolol Tartrate (Metoprolol Tartrate) 50 Mg Tablet, 100 MG PO BID, (Reported) Potassium Chloride (Potassium Chloride) 10 Meq Tablet.er, 10 MEQ PO BID, (Reported) Scheduled PRN Diclofenac Epolamine (Diclofenac Epolamine) 1 Each Patch.td12, 1 PATCH TOP Q12H PRN for PAIN, (Reported) APPLY TO LOWER BACK Hydromorphone HCl (Dilaudid) 2 Mg Tablet, 3 MG PO Q4H PRN for MODERATE/SEVERE PAIN (PS 5-10), (Reported) Polyethylene Glycol 3350 (Polyethylene Glycol 3350) 17 Gm Powd.pack, 17 GRAM PO DAILY PRN for CONSTIPATION, (Reported) Tizanidine HCl (Tizanidine HCl) 2 Mg Tablet, 2 MG PO QID PRN for MUSCLE SPASMS, (Reported) Allergies Coded Allergies: Sulfa (Sulfonamide Antibiotics) (Verified Allergy, Intermediate, HIVES, 04/29/19) Social History Social History Denies tobacco, alcohol, or illicit substance abuse. Review of Systems Subjective Constitutional: Denies: chills, fever Pulmonary: Denies: shortness of breath Cardiovascular: Denies: chest pain Gastrointestinal: Denies: abdominal pain, constipation, diarrhea Musculoskeletal: Reports: neck pain, other (Back pain ) Physical Examination Physical Examination Vital Signs/I&O Vital Signs Date Time Temp Pulse Resp B/P (MAP) Pulse Ox O2 Delivery O2 Flow Rate FiO2 02/10/20 12:00 97.8 80 19 86/48 (61) 97 Room Air 02/09/20 19:13 2.0 I&O- Last 24 Hours up to 6 AM 02/10/20 06:00 Intake Total 2610 ml Output Total 275 ml Balance 2335 ml General Exam: Positive: alert, talkative, cooperative, no acute distress Chest Exam: Positive: Clear to auscultation Heart Exam: Positive: Regular rate and rhythm Laboratory Data Labs 24H Laboratory Tests 2 02/09/20 18:11: Urine Color (RAFAEL) LT YELLOW, Urine Appearance (RAFAEL) CLEAR, Urine pH (RAFAEL) 5.0, Urine Specific [place] (RAFAEL) 1.015, Urine Protein TRACEH, Bedside Urine Glucose (UA) NEGATIVE, Bedside Urine Ketones (LAB) NEGATIVE, Bedside Urine Blood POSITIVEH, Bedside Urine Nitrite (LAB) NEGATIVE, Bedside Urine Bilirubin (LAB) NEGATIVE, Bedside Urine Urobilinogen (LAB) NORMAL, Bedside Urine Leukocyte Esterase (L POSITIVEH, Urine Sediment Examination PERFORMED, Urine RBC 0-1, Urine WBC 1-3, Urine Squamous Epithelial Cells LARGE AMOUNTH, Urine Renal Epithelial Cells SMALL AMOUNTH, Urine Bacteria SMALL AMOUNTH, Urine Hyaline Casts NONE SEEN, Urine Yeast SMALL AMOUNTH 02/09/20 23:32: Blood Gas Bicarbonate Standard 23.2, Venous Blood pH 7.492H, Venous Blood Partial Pressure CO2 28.1L, Venous Blood Partial Pressure O2 197.8H, Venous Blood Total Carbon Dioxide 21.9L, Venous Blood HCO3 21.0L, Venous Blood Oxygen Saturation 99.4H, Venous Blood Base Excess -1.6, Lactic Acid Level 0.9 02/10/20 00:19: Bedside Glucose (Misc Panel) 156H 02/10/20 05:22: Nucleated Red Blood Cells % (auto) 0.0, Anion Gap 8, Glomerular Filtration Rate > 60.0, Calcium Level 7.7L, Phosphorus Level 3.2, Magnesium Level 1.5L, Total Bilirubin 1.2H, Aspartate Amino Transf (AST/SGOT) 23, Alanine Aminotransferase (ALT/SGPT) 30, Alkaline Phosphatase 48, Total Protein 6.1L, Albumin 2.8#L, Albumin/Globulin Ratio 0.8L 02/10/20 11:36: Bedside Glucose (Misc Panel) 130H CBC/BMP Laboratory Tests 02/10/20 05:22 FSBS Laboratory Tests Test 02/10/20 00:19 02/10/20 11:36 Range/Units Bedside Glucose (Misc Panel) 156 130 83-110 MG/DL Microbiology Microbiology 02/09/20 Urine Culture - Final, Complete 02/09/20 Blood Culture - Preliminary, Resulted No growth after 24 hours . All specim... 02/09/20 Blood Culture - Preliminary, Resulted No growth after 24 hours . All specim... Assessment Given presenting symptoms and discussion with patient recommended stopping hydromorphone and starting Percocet 10/325 mg every 6 hours as needed MDD of 4 and increasing gabapentin to 300 mg 3 times a day. Patient has expressed understanding of and was in agreement with treatment plan. Given time to ask questions and express concerns. Recommendation and Plan Thank you for allowing us to participate in the care of your patient. Should you have any questions we will be glad to discuss this with you at any time please contact us here at the pain center at [phone]. LISA NORIEGA Feb 10, 2020 15:03
--- NOTE | 2020-02-10 19:13 | IPNPDOC ---
Text Note Date of Service The patient was seen on 02/10/20. NOTE SUBJECTIVE: Patient seen and examined this morning lying comfortably in bed. She did have a fever up to 1021 overnight. She was started on Zosyn and given Tylenol for this with good effect. Otherwise, she states her pain is the same this morning rating a 10 out of 10, worse at the base of her neck. She also reports some right shoulder pain. Her pain is worse with any movement of her neck. She states the paresthesias in her hands extend up to her wrist this morning and the paresthesias in her feet, extend up to her knees. OBJECTIVE: VITAL SIGNS: See below GENERAL: Alert, comfortable, in no acute distress HEENT: Normocephalic, atraumatic, sclerae anicteric, conjunctiva clear, moist mucous membranes NECK: Supple, trachea midline, no lymphadenopathy, no JVD CARDIOVASCULAR: Regular rate and rhythm, normal S1 and S2. No murmurs, rubs, or gallops RESPIRATORY: Clear to auscultation bilaterally with equal air entry bilaterally. No wheezing, rhonchi, or rales. ABDOMEN: Soft, nontender, nondistended, bowel sounds present EXTREMITIES: No cyanosis or edema. Pulses 2+/4 in bilateral upper and lower extremities MUSCULOSKELETAL: Tenderness to palpation over the lower cervical spinous processes and paraspinal musculature. NEUROLOGIC: Alert and oriented x3 to person, place and time. No focal deficits appreciated PSYCHIATRIC: Mood and affect appropriate ASSESSMENT/PLAN: # Acute on chronic neck and back pain with new onset paresthesias Acutely worsened over the 3 days prior to admission without any clear inciting incident Orthopedic surgery consulted, appreciate their input and recommendations. Neurology consulted, appreciate their input and recommendations. Additionally started patient on Cymbalta and gabapentin Cannot proceed with MRI for further evaluation as she has an implantable loop recorder which was placed in August 2019 Blood cultures 2 pending to help rule out possible infectious source such as discitis or abscess, which is low on the differential Pain clinic consultation today, appreciate their input and recommendations. Changed her oral Dilaudid to Percocet and increased dose of gabapentin. Will need PT/OT evaluation prior to discharge when her pain is improved enough for evaluation #Fever Patient developed fever up to 102.1 Fahrenheit overnight. Started on empiric IV Zosyn day #1. Blood cultures 2 pending, drawn in the emergency department. Urine culture pending from admission. No recurrent fevers this morning. Lactic acid level normal. No clear source. Discitis or spinal abscess remains low on the differential, unable to rule this out with an MRI due to implantable loop recorder # Chronic anemia, stable Recently admitted for GI bleed, H&H stable from discharge. Continue to monitor H&H daily # Thrombocytopenia. Stable from recent admission. Continue to monitor daily. LFTs significant only for mildly elevated bilirubin. HIT antibody negative. Additional work up ordered from prior admission including parvovirus b19 and babesia pending. Heme consult on prior admission, recommended outpatient follow-up for likely secondary thrombocytopenia with myelosuppression related to infection plus consumption related to GI bleed, expect platelet counts to improve over the course of 2 weeks. # Hypertension Continue home isosorbide mononitrate and metoprolol Was elevated on admission likely secondary pain, improved today. # Possible UTI, unlikely as she is asymptomatic. Patient denies urinary symptoms, UA obtained in ED, positive for leukocyte esterase and small amount of bacteria. Urine culture pending. On zosyn day #1 due to fever. # Atrial fibrillation status post ablation. Continue home metoprolol. No anticoagulation due to GI bleed and low platelet count Mild troponin elevation in the ED which was stable on recheck. # Diabetes mellitus Hold home metformin while inpatient. Sliding scale insulin, hypoglycemic protocol, consistent carbohydrate diet # Hypothyroidism Continue home levothyroxine DVT prophylaxis: Teds and sequentials. Hold on medical prophylaxis due to low platelet count. Disposition: pending clinical improvement, PT/OT eval prior to dc when pain is improved Attending attestation: Patient independently evaluated, agree with resident's plan. VS,Fishbone, I+O VS, Fishbone, I+O Laboratory Tests 02/10/20 05:22 Vital Signs Date Time Temp Pulse Resp B/P (MAP) Pulse Ox O2 Delivery O2 Flow Rate FiO2 02/10/20 17:07 18 02/10/20 16:37 114/56 98 Room Air 02/10/20 16:00 98.1 86 02/09/20 19:13 2.0 I&O- Last 24 Hours up to 6 AM 02/10/20 06:00 Intake Total 2610 ml Output Total 275 ml Balance 2335 ml INDIA GOLDSMITH D.O. Feb 10, 2020 19:13 EUNICE BONILLA MD Feb 13, 2020 10:35
[2020-02-10] MEDS: PERCOCET 5MG/325MG TAB PO PRN (20:17)
[2020-02-10] MEDS: GABAPENTIN 300 MG CAP PO SCH (20:17)
[2020-02-10] MEDS: QUEtiapine FUMARATE 50 MG TAB PO SCH (20:17)
[2020-02-11] VITALS: BP 100/49
--- NOTE | 2020-02-11 00:13 | ECGEPIP ---
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
[2020-02-11] MEDS: PIPERACILLIN/TAZOBACTAM SOD 3.375 GM in D5W MINI-BAG PLUS 50 ML IV SCH ×5 (00:45→23:53)
[2020-02-11 04:00] VITALS: BP 102/55
[2020-02-11 05:26] LABS: HEMATOCRIT 24.7 % (36.0-47.0); HEMOGLOBIN 8.2 g/dl (12.0-15.5); MEAN CORPUSCULAR HGB CONC 33.2 g/dl (32.0-36.5); MEAN CORPUSCULAR VOLUME 90.5 fl (80.0-96.0); RED BLOOD COUNT 2.73 10^6/uL (4.00-5.40); WHITE BLOOD COUNT 4.1 10^3/uL (4.0-10.0)
[2020-02-11 05:31] LABS: PLATELET COUNT, AUTOMATED 30 10^3/uL (150-450)
[2020-02-11] MEDS: LEVOTHYROXINE 100MCG TABLET (0.1MG) PO SCH (05:36)
[2020-02-11] MEDS: PERCOCET 5MG/325MG TAB PO PRN ×4 (05:37→23:54)
[2020-02-11 05:56] LABS: ALBUMIN 2.6 GM/DL (3.2-5.2); ALT/SGPT 21 U/L (12-78); BILIRUBIN,TOTAL 0.5 MG/DL (0.2-1.0); BLOOD UREA NITROGEN 8 MG/DL (7-18); CARBON DIOXIDE LEVEL 29 MEQ/L (21-32); CHLORIDE LEVEL 107 MEQ/L (98-107); CREATININE FOR GFR 0.72 MG/DL (0.55-1.30); GLOMERULAR FILTRATION RATE > 60.0 (>39); GLUCOSE, FASTING 112 MG/DL (70-100); MAGNESIUM LEVEL 1.6 MG/DL (1.8-2.4); POTASSIUM SERUM 3.5 MEQ/L (3.5-5.1); SODIUM LEVEL 141 MEQ/L (136-145)
[2020-02-11] MEDS ORDERED: MAG SULF 1GM/100ML (MAG RUN) 1 GM in IV 1 EA IV ONE (07:30)
[2020-02-11] MEDS: HumaLOG INSULIN (NovoLOG) PER UNIT SC SCH ×4 (07:30→20:48)
[2020-02-11 08:00] VITALS: BP 141/63
[2020-02-11] MEDS: METOPROLOL TARTRATE 100 MG TAB PO SCH ×2 (08:53→20:51)
[2020-02-11] MEDS: GABAPENTIN 300 MG CAP PO SCH ×3 (08:53→20:55)
[2020-02-11] MEDS: DULoxetine 20 MG CAP (CYMBALTA) PO SCH (08:53)
[2020-02-11] MEDS: DOCUSATE SODIUM 100 MG CAP PO SCH ×2 (08:53→20:55)
[2020-02-11] MEDS: FAMOTIDINE 20 MG TAB PO SCH (08:53)
[2020-02-11] MEDS: QUEtiapine FUMARATE 50 MG TAB PO SCH ×2 (08:54→20:55)
[2020-02-11] MEDS: LACTOBACILLUS ACIDOPHILUS CAP (BACID) PO SCH ×4 (08:54→20:55)
[2020-02-11] MEDS: ISOSORBIDE MON. (IMDUR) 30 MG XR TAB PO SCH (08:54)
[2020-02-11] MEDS: DICLOFENAC EPOLAMINE 1.3 % PATCH TOP PRN (09:18)
[2020-02-11 12:00] VITALS: BP 95/55
--- NOTE | 2020-02-11 12:32 | IPNPDOC ---
Text Note Date of Service The patient was seen on 02/11/20. NOTE SUBJECTIVE: Patient seen and examined this morning lying comfortably in bed. She states he pain has improved and she is able to move around a little more. No fevers overnight. She continues to have pain mostly in the base on the neck and the right shoulder. She also reports her lumbar spine pain bothering her this morning. OBJECTIVE: VITAL SIGNS: See below GENERAL: Alert, comfortable, in no acute distress HEENT: Normocephalic, atraumatic, sclerae anicteric, conjunctiva clear, moist mucous membranes NECK: Supple, trachea midline, no lymphadenopathy, no JVD CARDIOVASCULAR: Regular rate and rhythm, normal S1 and S2. No murmurs, rubs, or gallops RESPIRATORY: Clear to auscultation bilaterally with equal air entry bilaterally. No wheezing, rhonchi, or rales. ABDOMEN: Soft, nontender, nondistended, bowel sounds present EXTREMITIES: No cyanosis or edema. Pulses 2+/4 in bilateral upper and lower extremities MUSCULOSKELETAL: Tenderness to palpation over the lower cervical spinous processes and paraspinal musculature. NEUROLOGIC: Alert and oriented x3 to person, place and time. No focal deficits appreciated PSYCHIATRIC: Mood and affect appropriate ASSESSMENT/PLAN: # Acute on chronic neck and back pain with new onset paresthesias Acutely worsened over the 3 days prior to admission without any clear inciting incident Orthopedic surgery consulted, no current indication for surgery Neurology consulted, appreciate their input and recommendations. Additionally started patient on Cymbalta and gabapentin Cannot proceed with MRI for further evaluation as she has an implantable loop recorder which was placed in August 2019 Blood cultures 2 negative at 48h, rule out possible infectious source such as discitis or abscess, which is low on the differential Pain clinic consultation today, appreciate their input and recommendations. Changed her oral Dilaudid to Percocet and increased dose of gabapentin. PT/OT evaluation today #Fever Patient developed fever up to 102.1 Fahrenheit. Started on empiric IV Zosyn day #2. Blood cultures 2 negative at 48 hours, drawn in the emergency department. Urine culture shows contamination. No recurrent fevers. Lactic acid level normal. No clear source. Discitis or spinal abscess remains low on the differential, unable to rule this out with an MRI due to implantable loop recorder # Chronic anemia, stable Recently admitted for GI bleed, H&H down trending, will trend q6h today and obtain type and screen Continue to monitor H&H daily, transfuse for Hg less than 7 # Thrombocytopenia. Stable from recent admission. Continue to monitor daily. LFTs significant only for mildly elevated bilirubin. HIT antibody negative. Additional work up ordered from prior admission including parvovirus b19 and babesia pending. Heme consult on prior admission, recommended outpatient follow-up for likely secondary thrombocytopenia with myelosuppression related to infection plus consumption related to GI bleed, expect platelet counts to improve over the course of 2 weeks. # Hypertension Continue home isosorbide mononitrate and metoprolol Was elevated on admission likely secondary pain, now well controlled. # Possible UTI, unlikely as she is asymptomatic. Patient denies urinary symptoms, UA obtained in ED, positive for leukocyte esterase and small amount of bacteria. Urine culture contaminated. On zosyn day #2 due to fever. # Atrial fibrillation status post ablation. Continue home metoprolol. No anticoagulation due to GI bleed and low platelet count Mild troponin elevation in the ED which was stable on recheck. No chest pain. # Diabetes mellitus Hold home metformin while inpatient. Sliding scale insulin, hypoglycemic protocol, consistent carbohydrate diet # Hypothyroidism Continue home levothyroxine DVT prophylaxis: Teds and sequentials. Hold on medical prophylaxis due to low platelet count. Disposition: pending clinical improvement, PT/OT eval Attending attestation: Patient independently evaluated, agree with resident's plan. VS,Fishbone, I+O VS, Fishbone, I+O Laboratory Tests 02/11/20 05:07 Vital Signs Date Time Temp Pulse Resp B/P (MAP) Pulse Ox O2 Delivery O2 Flow Rate FiO2 02/11/20 11:29 14 02/11/20 08:53 90 141/63 02/11/20 08:00 98.4 96 Room Air 02/11/20 05:37 1.0 02/10/20 20:17 94 I&O- Last 24 Hours up to 6 AM 02/11/20 06:00 Intake Total 630 ml Output Total 775 ml Balance -145 ml [place]IA GOLDSMITH D.O. Feb 11, 2020 12:32 EUNICE BONILLA MD Feb 13, 2020 10:35
[2020-02-11 13:19] LABS: HEMATOCRIT 22.8 % (36.0-47.0); HEMOGLOBIN 7.7 g/dl (12.0-15.5); MEAN CORPUSCULAR HEMOGLOBIN 30.7 pg (27.0-33.0); MEAN CORPUSCULAR HGB CONC 33.8 g/dl (32.0-36.5); MEAN CORPUSCULAR VOLUME 90.8 fl (80.0-96.0); RED BLOOD COUNT 2.51 10^6/uL (4.00-5.40); WHITE BLOOD COUNT 3.6 10^3/uL (4.0-10.0)
[2020-02-11 13:29] LABS: PLATELET COUNT, AUTOMATED 29 10^3/uL (150-450)
[2020-02-11 18:13] VITALS: BP 113/54
[2020-02-11 19:22] LABS: HEMATOCRIT 23.3 % (36.0-47.0); HEMOGLOBIN 7.9 g/dl (12.0-15.5); MEAN CORPUSCULAR HEMOGLOBIN 30.5 pg (27.0-33.0); MEAN CORPUSCULAR HGB CONC 33.9 g/dl (32.0-36.5); RED BLOOD COUNT 2.59 10^6/uL (4.00-5.40)
[2020-02-11 19:23] LABS: PLATELET COUNT, AUTOMATED 32 10^3/uL (150-450)
[2020-02-11 22:00] VITALS: BP 119/53
[2020-02-12] VITALS (14 sets, daily range): BP systolic 97–146; BP diastolic 44–86
[2020-02-12 00:57] LABS: HEMOGLOBIN 7.6 g/dl (12.0-15.5); MEAN CORPUSCULAR HEMOGLOBIN 29.9 pg (27.0-33.0); MEAN CORPUSCULAR VOLUME 90.6 fl (80.0-96.0); RED BLOOD COUNT 2.54 10^6/uL (4.00-5.40); WHITE BLOOD COUNT 3.9 10^3/uL (4.0-10.0)
[2020-02-12 01:00] LABS: PLATELET COUNT, AUTOMATED 34 10^3/uL (150-450)
[2020-02-12] MEDS: PIPERACILLIN/TAZOBACTAM SOD 3.375 GM in D5W MINI-BAG PLUS 50 ML IV SCH ×4 (05:38→23:32)
[2020-02-12] MEDS: LEVOTHYROXINE 100MCG TABLET (0.1MG) PO SCH (05:39)
[2020-02-12 06:10] LABS: HEMATOCRIT 23.1 % (36.0-47.0); HEMOGLOBIN 7.8 g/dl (12.0-15.5); MEAN CORPUSCULAR HEMOGLOBIN 30.4 pg (27.0-33.0); MEAN CORPUSCULAR HGB CONC 33.8 g/dl (32.0-36.5); MEAN CORPUSCULAR VOLUME 89.9 fl (80.0-96.0); RED BLOOD COUNT 2.57 10^6/uL (4.00-5.40); WHITE BLOOD COUNT 3.8 10^3/uL (4.0-10.0)
[2020-02-12 06:16] LABS: PLATELET COUNT, AUTOMATED 31 10^3/uL (150-450)
[2020-02-12 06:30] LABS: ALBUMIN 2.5 GM/DL (3.2-5.2); ALT/SGPT 18 U/L (12-78); BILIRUBIN,TOTAL 0.4 MG/DL (0.2-1.0); BLOOD UREA NITROGEN 9 MG/DL (7-18); CALCIUM LEVEL 8.1 MG/DL (8.8-10.2); CARBON DIOXIDE LEVEL 27 MEQ/L (21-32); CHLORIDE LEVEL 108 MEQ/L (98-107); CREATININE FOR GFR 0.73 MG/DL (0.55-1.30); GLOMERULAR FILTRATION RATE > 60.0 (>39); GLUCOSE, FASTING 108 MG/DL (70-100); MAGNESIUM LEVEL 1.7 MG/DL (1.8-2.4); POTASSIUM SERUM 3.5 MEQ/L (3.5-5.1); SODIUM LEVEL 142 MEQ/L (136-145); TOTAL PROTEIN 6.3 GM/DL (6.4-8.2)
[2020-02-12] MEDS: HumaLOG INSULIN (NovoLOG) PER UNIT SC SCH ×4 (08:34→21:00)
[2020-02-12] MEDS: DICLOFENAC EPOLAMINE 1.3 % PATCH TOP PRN (08:34)
[2020-02-12] MEDS: MAG SULF 1GM/100ML (MAG RUN) 1 GM in IV 1 EA IV SCH ×2 (08:34→10:00)
[2020-02-12] MEDS: PERCOCET 5MG/325MG TAB PO PRN ×2 (08:35→23:33)
[2020-02-12] MEDS: FAMOTIDINE 20 MG TAB PO SCH (08:35)
[2020-02-12] MEDS: tiZANidine 4 MG TAB PO PRN (08:37)
[2020-02-12] MEDS: DULoxetine 20 MG CAP (CYMBALTA) PO SCH (08:38)
[2020-02-12] MEDS: QUEtiapine FUMARATE 50 MG TAB PO SCH ×2 (08:38→21:34)
[2020-02-12] MEDS: DOCUSATE SODIUM 100 MG CAP PO SCH ×2 (08:38→21:34)
[2020-02-12] MEDS: GABAPENTIN 300 MG CAP PO SCH ×3 (08:38→21:34)
[2020-02-12] MEDS: LACTOBACILLUS ACIDOPHILUS CAP (BACID) PO SCH ×4 (08:38→21:34)
[2020-02-12] MEDS: METOPROLOL TARTRATE 100 MG TAB PO SCH ×2 (08:39→21:34)
[2020-02-12] MEDS: ISOSORBIDE MON. (IMDUR) 30 MG XR TAB PO SCH (08:39)
--- NOTE | 2020-02-12 09:26 | CR ---
DATE OF CONSULTATION: 02/10/2020 REFERRING PHYSICIAN: Dr. Kingsley Ornelas REASON FOR CONSULTATION: Neck pain, numbness and tingling of arms and right shoulder pain. HISTORY OF PRESENT ILLNESS: Ynes Pollard is a 79-year-old woman with history of transient ischemic attack (TIA), chronic neck and back pain, diabetes, atrial fibrillation, hemiballismus, and choreoathetosis which has been well controlled with Seroquel 50 mg by mouth three times a day on an outpatient basis. It appears that the patient recently stopped taking Seroquel due to unclear reason. She denies having any side effects from the medication. She was admitted at [facility] due to severe neck pain radiating to shoulder blades numbness and tingling of arms which started 4 days ago without any preceding injuries or illness. The patient had multiple doses of pain medications in the emergency department without much effect. She was prescribed Dilaudid which she states has not been helping. She states that her blood pressure was running low and it was thought it may be due to pain medications. The patient has been following with the pain clinic and had several spine injections. She was referred to a neurosurgeon for further evaluation in January 2020. She was previously seen by orthopedic surgery in [place] for her back pain. PAST MEDICAL HISTORY: Type 2 diabetes, TIA, urinary retention, atrial fibrillation, hypothyroidism, kidney stones, degenerative disk disease of thoracic and lumbar spine, vertebral artery stenosis, chronic neck and back pain, appendectomy, kidney stones which were surgically removed, left tibial and wrist fracture, hysterectomy, breast lumpectomy on left side with benign findings, right carpal tunnel surgery, bilateral cataract surgery, colonoscopy, loop recorder placement in August 2019. SOCIAL HISTORY: The patient denies smoking or illicit drugs. She drinks alcohol occasionally. She lives with her . FAMILY HISTORY: Father had esophageal cancer. Mother with history of heart disease and hypertension. Brother with history of heart disease. REVIEW OF SYSTEMS: All systems were reviewed with the patient and were found to be noncontributory except as mentioned in history of present illness. ALLERGIES: SULFA. HOME MEDICATIONS: - Pepcid 40 mg by mouth daily - isosorbide mononitrate 30 mg by mouth daily - levothyroxine 100 mcg by mouth daily - melatonin 5 mg by mouth daily - metformin 1000 mg by mouth twice a day - metoprolol 100 mg by mouth twice a day - potassium chloride 10 mEq by mouth twice a day - Dilaudid 3 mg by mouth every 4 hours as needed - tizanidine 2 mg by mouth four times a day as needed - diclofenac patch every 12 hours as needed PHYSICAL EXAMINATION: Temperature 97.8, pulse 80, respiratory rate 19, blood pressure 86/48, 97% saturation on room air. Heart: Irregularly irregular. Lungs: Clear to auscultation. Abdomen: Soft, nontender, nondistended. No pedal edema. No musculoskeletal abnormalities. No rash. No signs of meningeal irritation. The patient is awake, alert, oriented to place, person and time. Normal speech, comprehension and repetition. Extraocular muscles are intact. No facial weakness. Tongue and uvula are midline. 5/5 strength in all four extremities with intermittent activation of arms due to pain, worse on right side. Deep tendon flexes are 1+ in arms and knees and absent at ankles. She has decreased cold pinprick vibration sensation in her feet. Gait was not tested. There is no dysmetria. There is no tremor. There are no abnormal movements currently. DIAGNOSTIC STUDIES: CT scan of cervical spine showed multilevel degenerative disk disease and osteoarthritis without spinal canal stenosis. CT angiography of the chest and CT scan of head were unremarkable. Hemoglobin was 9.6 with platelet count 28 and normal metabolic profile. ASSESSMENT: 1. Chronic neck and back pain due to cervical, thoracic and lumbosacral degenerative disk disease and spondylosis. 2. Atrial fibrillation. 3. History of choreoathetosis and hemiballismus. 4. Diabetic peripheral neuropathy. 5. History of transient ischemic attack. PLAN: 1. Cymbalta 20 mg by mouth daily. 2. Tizanidine 2 mg by mouth four times a day as needed. 3. Gabapentin 100 mg by mouth three times a day and slowly increase it as tolerated. 4. Restart her Seroquel 50 mg by mouth twice a day. 5. EMG nerve conduction study of arms and legs on outpatient basis. 6. Close followup with orthopedics, neurosurgery and pain clinic. 7. Physical and occupational therapy.
--- NOTE | 2020-02-12 09:52 | IPNPDOC ---
Text Note Date of Service The patient was seen on 02/12/20. NOTE SUBJECTIVE: Patient seen and examined this morning lying comfortably in bed. She states her pain is about the same as yesterday, still limiting her function but improved from when she was admitted. She has had significant improvement in her paresthesias. No fevers overnight. She did work with OT yesterday and will work with PT today. No BM yet. OBJECTIVE: VITAL SIGNS: See below GENERAL: Alert, comfortable, in no acute distress HEENT: Normocephalic, atraumatic, sclerae anicteric, conjunctiva clear, moist mucous membranes NECK: Supple, trachea midline, no lymphadenopathy, no JVD CARDIOVASCULAR: Regular rate and rhythm, normal S1 and S2. No murmurs, rubs, or gallops RESPIRATORY: Clear to auscultation bilaterally with equal air entry bilaterally. No wheezing, rhonchi, or rales. ABDOMEN: Soft, nontender, nondistended, bowel sounds present EXTREMITIES: No cyanosis or edema. Pulses 2+/4 in bilateral upper and lower extremities MUSCULOSKELETAL: Tenderness to palpation over the lower cervical spinous processes and paraspinal musculature. NEUROLOGIC: Alert and oriented x3 to person, place and time. No focal deficits appreciated PSYCHIATRIC: Mood and affect appropriate ASSESSMENT/PLAN: # Acute on chronic neck and back pain with new onset paresthesias Acutely worsened over the 3 days prior to admission without any clear inciting incident Orthopedic surgery consulted, no current indication for surgery Neurology consulted, appreciate their input and recommendations. Started patient on Cymbalta and gabapentin Cannot proceed with MRI for further evaluation as she has an implantable loop recorder which was placed in August 2019 Blood cultures 2 negative at 48h, rule out possible infectious source such as discitis or abscess, which is low on the differential Pain clinic consulted, appreciate their input and recommendations. Changed her oral Dilaudid to Percocet and increased dose of gabapentin. PT/OT #Fever Patient developed fever up to 102.1 Fahrenheit. Started on empiric IV Zosyn day #3. Blood cultures 2 negative at 48 hours, drawn in the emergency department. Urine culture shows contamination. No recurrent fevers. Lactic acid level normal. No clear source. Discitis or spinal abscess remains low on the differential, unable to rule this out with an MRI due to implantable loop recorder # Acute on chronic anemia Recently admitted for GI bleed, H&H down trending, stable throughout the day yesterday and this morning. stool occult pending. Continue to monitor H&H daily, transfuse for Hg less than 7 # Thrombocytopenia. Stable from recent admission. Continue to monitor daily. LFTs significant only for mildly elevated bilirubin. HIT antibody negative. Additional work up ordered from prior admission including parvovirus b19 and babesia pending. Heme consult on prior admission, recommended outpatient follow-up for likely secondary thrombocytopenia with myelosuppression related to infection plus consumption related to GI bleed, expect platelet counts to improve over the course of 2 weeks. # Hypertension Continue home isosorbide mononitrate and metoprolol Was elevated on admission likely secondary pain, now well controlled. # Possible UTI, unlikely as she is asymptomatic. Patient denies urinary symptoms, UA obtained in ED, positive for leukocyte esterase and small amount of bacteria. Urine culture contaminated. On zosyn day #3 due to fever. # Atrial fibrillation status post ablation. Continue home metoprolol. No anticoagulation due to GI bleed and low platelet count Mild troponin elevation in the ED which was stable on recheck. No chest pain. # Diabetes mellitus Hold home metformin while inpatient. Sliding scale insulin, hypoglycemic protocol, consistent carbohydrate diet # Hypothyroidism Continue home levothyroxine DVT prophylaxis: Teds and sequentials. Hold on medical prophylaxis due to low platelet count. Disposition: pending clinical improvement, PT/OT evals and treatment to determine if rehab is needed Attending attestation: Patient independently evaluated, agree with resident's plan. VS,Fishbone, I+O VS, Fishbone, I+O Laboratory Tests 02/11/20 12:40 02/11/20 19:05 02/12/20 00:39 02/12/20 05:52 Vital Signs Date Time Temp Pulse Resp B/P (MAP) Pulse Ox O2 Delivery O2 Flow Rate FiO2 02/12/20 08:39 87 123/58 02/12/20 08:35 20 02/12/20 06:00 97.9 95 Room Air 02/11/20 05:37 1.0 02/10/20 20:17 94 I&O- Last 24 Hours up to 6 AM 02/12/20 06:00 Intake Total 800 ml Output Total 400 ml Balance 400 ml INDIA GOLDSMITH D.O. Feb 12, 2020 09:52 EUNICE BONILLA MD Feb 13, 2020 10:39
[2020-02-12] MEDS ORDERED: PROHANCE 279.3MG/ML 15ML VIAL As Ordered ONE (15:44)
--- NOTE | 2020-02-12 17:51 | REPVR ---
PROCEDURE INFORMATION: Exam: MR Cervical Spine Without and With Contrast Exam date and time: 02/12/2020 4:35 PM Age: 79 years old Clinical indication: Neck pain and other: Neck/shoulder pain TECHNIQUE: Imaging protocol: Multiplanar magnetic resonance images of the cervical spine without and with intravenous contrast. Contrast material: PROHANCE; Contrast volume: 14 ml; Contrast route: INTRAVENOUS (IV); COMPARISON: CT Spine,cervical w/o contrast 02/09/2020 9:03 AM FINDINGS: Cervical vertebral body heights are intact. Straightening of the cervical lordosis. The dens is intact. No abnormal marrow signal. No cord compression, expansion, or abnormal cord signal. Visualized structures of the posterior fossa are unremarkable. Soft tissues are unremarkable. No abnormal enhancement within the cervical spine. C2-C3: No significant canal or foraminal narrowing. C3-C4: No significant canal or foraminal narrowing. C4-C5: No significant canal or foraminal narrowing. C5-C6: Posterior disc protrusion and uncovertebral spurring cause mild canal narrowing with mild left and moderate right foraminal narrowing. C6-C7: Uncovertebral spurring causes mild left foraminal narrowing. No significant canal narrowing. C7-T1: No significant canal or foraminal narrowing. IMPRESSION: 1. No acute findings in the cervical spine. 2. Chronic findings, as above. Electronically signed by: Jaswinder Machuca On 02/12/2020 17:51:01 PM
[2020-02-13] MEDS: PERCOCET 5MG/325MG TAB PO PRN ×3 (04:26→18:31)
[2020-02-13] MEDS: PIPERACILLIN/TAZOBACTAM SOD 3.375 GM in D5W MINI-BAG PLUS 50 ML IV SCH ×4 (05:58→23:28)
[2020-02-13] MEDS: LEVOTHYROXINE 100MCG TABLET (0.1MG) PO SCH (05:58)
[2020-02-13 06:00] VITALS: BP 143/70
[2020-02-13 06:33] LABS: HEMATOCRIT 28.9 % (36.0-47.0); MEAN CORPUSCULAR HEMOGLOBIN 29.9 pg (27.0-33.0); MEAN CORPUSCULAR HGB CONC 33.9 g/dl (32.0-36.5); MEAN CORPUSCULAR VOLUME 88.1 fl (80.0-96.0); RED BLOOD COUNT 3.28 10^6/uL (4.00-5.40); WHITE BLOOD COUNT 4.3 10^3/uL (4.0-10.0)
[2020-02-13 06:39] LABS: HEMOGLOBIN 9.8 g/dl (12.0-15.5); PLATELET COUNT, AUTOMATED 32 10^3/uL (150-450)
[2020-02-13 06:47] LABS: ALBUMIN 2.6 GM/DL (3.2-5.2); ALT/SGPT 17 U/L (12-78); BILIRUBIN,TOTAL 0.7 MG/DL (0.2-1.0); BLOOD UREA NITROGEN 11 MG/DL (7-18); CALCIUM LEVEL 7.8 MG/DL (8.8-10.2); CARBON DIOXIDE LEVEL 28 MEQ/L (21-32); CHLORIDE LEVEL 106 MEQ/L (98-107); GLOMERULAR FILTRATION RATE > 60.0 (>39); GLUCOSE, FASTING 102 MG/DL (70-100); MAGNESIUM LEVEL 1.7 MG/DL (1.8-2.4); POTASSIUM SERUM 3.4 MEQ/L (3.5-5.1); SODIUM LEVEL 139 MEQ/L (136-145); TOTAL PROTEIN 5.7 GM/DL (6.4-8.2)
[2020-02-13] MEDS ORDERED: POTASSIUM CHLORIDE 10 MEQ SR TABLET PO ONE ×2 (08:00→12:00)
[2020-02-13] MEDS ORDERED: MAG SULF 1GM/100ML (MAG RUN) 1 GM in IV 1 EA IV ONE (08:00)
[2020-02-13] MEDS: HumaLOG INSULIN (NovoLOG) PER UNIT SC SCH ×4 (08:51→21:00)
[2020-02-13] MEDS: QUEtiapine FUMARATE 50 MG TAB PO SCH ×2 (08:52→20:56)
[2020-02-13] MEDS: ISOSORBIDE MON. (IMDUR) 30 MG XR TAB PO SCH (08:52)
[2020-02-13] MEDS: FAMOTIDINE 20 MG TAB PO SCH (08:52)
[2020-02-13] MEDS: GABAPENTIN 300 MG CAP PO SCH ×3 (08:53→20:56)
[2020-02-13] MEDS: DOCUSATE SODIUM 100 MG CAP PO SCH (08:53)
[2020-02-13] MEDS: DULoxetine 20 MG CAP (CYMBALTA) PO SCH (08:53)
[2020-02-13] MEDS: LACTOBACILLUS ACIDOPHILUS CAP (BACID) PO SCH ×4 (08:53→20:56)
[2020-02-13] MEDS: METOPROLOL TARTRATE 100 MG TAB PO SCH ×2 (08:54→20:56)
[2020-02-13] MEDS ORDERED: FLEET ENEMA PR ONE (09:00)
--- NOTE | 2020-02-13 09:24 | IPNPDOC ---
Text Note Date of Service The patient was seen on 02/13/20. NOTE SUBJECTIVE: Patient seen and examined this morning lying comfortably in bed. She states her pain is somewhat improved today. She feels her low back pain is worse then when she was admitted, despite the neck feeling better. She is nervous that she will still feel dizzy when standing today. She received two units of blood yesterday. She has not had a BM since admission. OBJECTIVE: VITAL SIGNS: See below GENERAL: Alert, comfortable, in no acute distress HEENT: Normocephalic, atraumatic, sclerae anicteric, conjunctiva clear, moist mucous membranes NECK: Supple, trachea midline, no lymphadenopathy, no JVD CARDIOVASCULAR: Regular rate and rhythm, normal S1 and S2. No murmurs, rubs, or gallops RESPIRATORY: Clear to auscultation bilaterally with equal air entry bilaterally. No wheezing, rhonchi, or rales. ABDOMEN: Soft, nontender, nondistended, bowel sounds present EXTREMITIES: No cyanosis or edema. Pulses 2+/4 in bilateral upper and lower extremities MUSCULOSKELETAL: Tenderness to palpation over the lower cervical spinous processes and paraspinal musculature. NEUROLOGIC: Alert and oriented x3 to person, place and time. No focal deficits appreciated PSYCHIATRIC: Mood and affect appropriate ASSESSMENT/PLAN: # Acute on chronic neck and back pain with new onset paresthesias Acutely worsened over the 3 days prior to admission without any clear inciting incident Orthopedic surgery consulted, no current indication for surgery Neurology consulted, appreciate their input and recommendations. Started patient on Cymbalta and gabapentin neck MRI negative for any acute source of pain, chronic changes present Blood cultures 2 negative at 48h, rule out possible infectious source such as discitis or abscess, which is low on the differential Pain clinic consulted, appreciate their input and recommendations. Changed her oral Dilaudid to Percocet and increased dose of gabapentin. PT/OT suggesting rehab placement after discharge # Urinary retention - pt requiring straight cath due to retention - no BM since admission, constipation may be causing urinary retention, fleet enema today to relieve this. - medications reviewed, opiates can cause retention but she is a chronic opiate user and this is new problem so that is an unlikely cause in her case #Fever Patient developed fever up to 102.1 Fahrenheit. Started on empiric IV Zosyn day #4. Blood cultures 2 negative at 48 hours, drawn in the emergency department. Urine culture shows contamination. No recurrent fevers. Lactic acid level normal. No clear source. Discitis or spinal abscess unlikely, neck MRI negative. # Acute on chronic anemia Recently admitted for GI bleed, H&H down trending, stable throughout the day yesterday and this morning. stool occult pending. -s/p 2 units PRBCs give on 02/11 Continue to monitor H&H daily, transfuse for Hg less than 7 # Thrombocytopenia. Stable from recent admission. Continue to monitor daily. LFTs significant only for mildly elevated bilirubin. HIT antibody negative. Additional work up ordered from prior admission including parvovirus b19 and babesia pending. Heme consult on prior admission, recommended outpatient follow-up for likely secondary thrombocytopenia with myelosuppression related to infection plus consumption related to GI bleed, expect platelet counts to improve over the course of 2 weeks. # Hypertension Continue home isosorbide mononitrate and metoprolol Was elevated on admission likely secondary pain, now well controlled. # Possible UTI, unlikely as she is asymptomatic. Patient denies urinary symptoms, UA obtained in ED, positive for leukocyte esterase and small amount of bacteria. Urine culture contaminated. On zosyn day #4 due to fever. # Atrial fibrillation status post ablation. Continue home metoprolol. No anticoagulation due to GI bleed and low platelet count Mild troponin elevation in the ED which was stable on recheck. No chest pain. # Diabetes mellitus Hold home metformin while inpatient. Sliding scale insulin, hypoglycemic protocol, consistent carbohydrate diet # Hypothyroidism Continue home levothyroxine DVT prophylaxis: Teds and sequentials. Hold on medical prophylaxis due to low platelet count. Disposition: pending clinical improvement, suspect d/c to rehab when clinically stable Attending attestation: Patient independently evaluated, agree with resident's plan. VS,Fishbone, I+O VS, Fishbone, I+O Laboratory Tests 02/13/20 05:42 Vital Signs Date Time Temp Pulse Resp B/P (MAP) Pulse Ox O2 Delivery O2 Flow Rate FiO2 02/13/20 08:52 156/57 02/13/20 06:00 97.9 76 17 95 Room Air 02/11/20 05:37 1.0 02/10/20 20:17 94 I&O- Last 24 Hours up to 6 AM 02/13/20 05:59 Intake Total 1714 ml Output Total 1400 ml Balance 314 ml INDIA GOLDSMITH D.O. Feb 13, 2020 09:24 EUNICE BONILLA MD Feb 13, 2020 10:40
[2020-02-13] MEDS ORDERED: FLEET ENEMA PR PRN (13:00)
[2020-02-13] MEDS ORDERED: SENNA 8.6 MG TAB (SENOKOT) PO ONE (13:00)
[2020-02-13] MEDS ORDERED: ISOVUE-370 76% 100ML VIAL As Ordered ONE (13:41)
[2020-02-13 14:00] VITALS: BP 140/65
[2020-02-13] MEDS: DICLOFENAC EPOLAMINE 1.3 % PATCH TOP PRN (16:01)
[2020-02-13] MEDS: SENOKOT S TAB PO SCH (20:56)
[2020-02-13 22:00] VITALS: BP 146/63
[2020-02-14] MEDS: PERCOCET 5MG/325MG TAB PO PRN ×4 (00:56→22:57)
[2020-02-14] MEDS: PIPERACILLIN/TAZOBACTAM SOD 3.375 GM in D5W MINI-BAG PLUS 50 ML IV SCH ×3 (05:30→17:59)
[2020-02-14] MEDS: LEVOTHYROXINE 100MCG TABLET (0.1MG) PO SCH (05:31)
[2020-02-14 06:00] VITALS: BP 136/66
[2020-02-14 06:56] LABS: HEMATOCRIT 28.7 % (36.0-47.0); HEMOGLOBIN 9.6 g/dl (12.0-15.5); MEAN CORPUSCULAR HEMOGLOBIN 30.2 pg (27.0-33.0); MEAN CORPUSCULAR HGB CONC 33.4 g/dl (32.0-36.5); MEAN CORPUSCULAR VOLUME 90.3 fl (80.0-96.0); RED BLOOD COUNT 3.18 10^6/uL (4.00-5.40); WHITE BLOOD COUNT 4.1 10^3/uL (4.0-10.0)
[2020-02-14 07:16] LABS: PLATELET COUNT, AUTOMATED 29 10^3/uL (150-450)
[2020-02-14 07:27] LABS: ALBUMIN 2.6 GM/DL (3.2-5.2); ALT/SGPT 18 U/L (12-78); BILIRUBIN,TOTAL 0.4 MG/DL (0.2-1.0); BLOOD UREA NITROGEN 12 MG/DL (7-18); CALCIUM LEVEL 7.8 MG/DL (8.8-10.2); CARBON DIOXIDE LEVEL 26 MEQ/L (21-32); CHLORIDE LEVEL 108 MEQ/L (98-107); GLOMERULAR FILTRATION RATE > 60.0 (>39); GLUCOSE, FASTING 121 MG/DL (70-100); MAGNESIUM LEVEL 1.6 MG/DL (1.8-2.4); POTASSIUM SERUM 3.9 MEQ/L (3.5-5.1); SODIUM LEVEL 140 MEQ/L (136-145)
[2020-02-14] MEDS: FAMOTIDINE 20 MG TAB PO SCH (08:36)
[2020-02-14] MEDS: GABAPENTIN 300 MG CAP PO SCH ×3 (08:37→20:49)
[2020-02-14] MEDS: QUEtiapine FUMARATE 50 MG TAB PO SCH ×2 (08:37→20:50)
[2020-02-14] MEDS: METOPROLOL TARTRATE 100 MG TAB PO SCH ×2 (08:37→20:50)
[2020-02-14] MEDS: LACTOBACILLUS ACIDOPHILUS CAP (BACID) PO SCH ×4 (08:37→20:49)
[2020-02-14] MEDS: DULoxetine 20 MG CAP (CYMBALTA) PO SCH (08:37)
[2020-02-14] MEDS: SENOKOT S TAB PO SCH ×2 (08:37→20:50)
[2020-02-14] MEDS: ISOSORBIDE MON. (IMDUR) 30 MG XR TAB PO SCH (08:37)
[2020-02-14] MEDS: HumaLOG INSULIN (NovoLOG) PER UNIT SC SCH ×4 (08:38→20:50)
--- NOTE | 2020-02-14 11:03 | IPNPDOC ---
Text Note Date of Service The patient was seen on 02/14/20. NOTE SUBJECTIVE: Patient seen and examined at bedside. No acute overnight events reported. No new medical complaints this morning. Still notes abdominal pain, feels it has improved from yesterday. OBJECTIVE: VITAL SIGNS: See below GENERAL: Alert, comfortable, in no acute distress HEENT: Normocephalic, atraumatic, sclerae anicteric, conjunctiva clear, moist mucous membranes NECK: Supple, trachea midline, no lymphadenopathy, no JVD CARDIOVASCULAR: Regular rate and rhythm, normal S1 and S2. No murmurs, rubs, or gallops RESPIRATORY: Clear to auscultation bilaterally with equal air entry bilaterally. No wheezing, rhonchi, or rales. ABDOMEN: Soft, nontender, nondistended, bowel sounds present EXTREMITIES: No cyanosis or edema. NEUROLOGIC: Alert and oriented x3 to person, place and time. No focal deficits appreciated PSYCHIATRIC: Mood and affect appropriate ASSESSMENT/PLAN: # Acute on chronic neck and back pain with new onset paresthesias Acutely worsened over the 3 days prior to admission without any clear inciting incident Orthopedic surgery consulted - no further intervention at this time Neurology consulted, appreciate their input and recommendations. Started patient on Cymbalta and gabapentin neck MRI negative for any acute source of pain, chronic changes present Blood cultures 2 negative at 48h, rule out possible infectious source such as discitis or abscess, which is low on the differential Pain clinic consulted, appreciate their input and recommendations. Changed her oral Dilaudid to Percocet and increased dose of gabapentin. PT/OT suggesting rehab placement after discharge - oral analgesic therapy has been adjusted secondary to episodes of severe lethargy # Urinary retention/abdominal pain - pt has required straight cath due to retention - possibly secondary to constipation - CT A/P obtained - still pending official report - denies any saddle parasthesia/lower extremity numbness - continue to follow clinically #Fever Patient developed fever up to 102.1 Fahrenheit. Started on empiric IV Zosyn day #12/07. - no clear source - BCx negative to date, UCx contaminated, lactic acid WNL, neck MRI no acute pathology # Acute on chronic anemia - was symptomatic -s/p 2 units PRBCs give on 02/11 Continue to monitor H&H daily # Thrombocytopenia - still grossly at baseline - no clear etiology at this time Additional work up ordered from prior admission including parvovirus b19 and babesia pending. Heme consult on prior admission, recommended outpatient follow-up for likely secondary thrombocytopenia with myelosuppression related to infection plus consumption related to GI bleed, expect platelet counts to improve over the course of 2 weeks. # HTN Continue home isosorbide mononitrate and metoprolol Was elevated on admission likely secondary pain, now well controlled. # Possible UTI UA obtained in ED, positive for leukocyte esterase and small amount of bacteria. Urine culture contaminated. On zosyn day #12/07 # Atrial fibrillation status post ablation. rate controlled - Continue home metoprolol. No anticoagulation due to GI bleed and low platelet count Mild troponin elevation in the ED which was stable on recheck. No chest pain. # Diabetes mellitus Hold home metformin while inpatient. Sliding scale insulin, hypoglycemic protocol, consistent carbohydrate diet # Hypothyroidism Continue home levothyroxine DVT prophylaxis: Teds and sequentials. Hold on medical prophylaxis due to thrombocytopenia/GI bleed Disposition: pending clinical improvement, d/c to rehab when clinically stable; requesting facility in [facility] if possible Extensive discussion with Joe, and nephew Dr. Parry. VS,Fishbone, I+O VS, Fishbone, I+O Laboratory Tests 02/14/20 06:42 Vital Signs Date Time Temp Pulse Resp B/P (MAP) Pulse Ox O2 Delivery O2 Flow Rate FiO2 02/14/20 09:10 19 Room Air 02/14/20 08:37 71 139/65 02/14/20 06:00 97.7 94 02/11/20 05:37 1.0 02/10/20 20:17 94 I&O- Last 24 Hours up to 6 AM 02/14/20 05:59 Intake Total 1410 ml Output Total 475 ml Balance 935 ml EUNICE BONILLA MD Feb 14, 2020 11:03
--- NOTE | 2020-02-14 12:01 | REP ---
CT ABDOMEN AND PELVIS WITH IV CONTRAST ONLY: 02/13/2020. COMPARISON: 02/09/2020, 01/27/2020. CLINICAL HISTORY: Back pain, urinary retention, right lower quadrant pain. TECHNIQUE: The patient received 100 mL Isovue 370, scanning through the abdomen and pelvis and with both coronal and sagittal reconstructions. FINDINGS: CT ABDOMEN: Lung bases show some minor atelectatic and fibrotic changes on the left but stable and without acute finding. Heart size unchanged with left atrium and left ventricle mildly prominent. No pericardial thickening or effusion. There is no hiatal hernia. Liver is not enlarged. There is no hepatic mass or intrahepatic biliary dilatation. Overall slight decrease in liver density may reflect fatty liver change. There is mild prominence of the left hepatic lobe and caudate lobe and questionable lobulation of contour of the liver, as before. There is no adjacent ascites. Gallbladder partially filled without mass, wall thickening, calcified stone, or sludge. Spleen unremarkable. Stomach with retained recent meal. It is not abnormally distended. Adrenal glands normal. Kidney shows fatty atrophy , sparing only the distal portion of the tail. This is unchanged. There is one tiny 2 mm stone in the left kidney collecting system, unchanged. No left hydronephrosis, hydroureter or ureteral stone. Right kidney shows no stone and has some scarring posterolaterally in the mid and lower pole region. The aorta is without aneurysm and has calcifications. No dissection. No periaortic, other retroperitoneal or pathologic sized mesenteric lymphadenopathy. Stool and gas are seen throughout the abdominal portion of the colon without inflammatory changes to suggest colitis or diverticulitis. Small bowel loops are unremarkable. The does appear to be a proximal stricture from calcifications at the origin of the celiac axis, but not the SMA, and KULWANT is visible. There is an accessory renal artery on the left but not the right. This represents anatomic variation. There is no evidence of perforation or free, air on lung window review of the entire abdomen and pelvis. No ascites. Bones are unchanged. A T12 superior endplate compression deformity, as seen on multiple previous studies. The visualized ribs also intact. CT PELVIS: The bony sacrum, SI joints, pelvis, and hips show only minimal degenerative change. There is an intermedullary lilliam and a blade paddle fixation device through the proximal left femur into the hip, unchanged. No ureteral dilatation in the pelvis and no ureteral stones visible. Bladder well distended without wall thickening, mass, or stone. Multiple pelvic phleboliths are seen. Vaginal cuff intact. No adnexal or pelvic mass, pelvic lymphadenopathy, or free fluid. Distal left colon, sigmoid, and rectum without any acute finding. Small bowel loops grossly intact. No inflammatory changes about the cecum. There is no ventral or inguinal hernia nor pathologic sized inguinal adenopathy. IMPRESSION: 1. Some fatty infiltration of the liver without focal hepatic mass, stable exam. Findings of enlarged left lobe and caudate lobe along with slight lobulations of contour may reflect chronic liver disease. No ascites. Stable findings. 2. Diffuse atrophy in pancreas and a single nonobstructive punctate stone in the interpolar region right kidney without hydronephrosis or hydroureter. No ureteral or bladder stone. 3. Small bowel loops without any acute finding. No mesenteric inflammatory change, colitis, diverticulitis, or obstruction. 4. Prior hysterectomy. Essentially stable CT. Electronically Signed by Edwardo Mota MD 02/14/2020 06:52 P
[2020-02-14 14:00] VITALS: BP 147/67
[2020-02-14] MEDS: MAG SULF 1GM/100ML (MAG RUN) 1 GM in IV 1 EA IV SCH (15:50)
[2020-02-14] MEDS: MAGNESIUM CHLORIDE 64 MG TABCR (SLO MAG) PO SCH (17:49)
[2020-02-14 22:00] VITALS: BP 166/80
[2020-02-15] MEDS: LEVOTHYROXINE 100MCG TABLET (0.1MG) PO SCH (05:51)
[2020-02-15] MEDS: PERCOCET 5MG/325MG TAB PO PRN ×2 (05:51→12:08)
[2020-02-15 06:00] VITALS: BP 138/80
[2020-02-15 06:03] LABS: HEMATOCRIT 29.9 % (36.0-47.0); HEMOGLOBIN 10.1 g/dl (12.0-15.5); MEAN CORPUSCULAR HEMOGLOBIN 30.3 pg (27.0-33.0); MEAN CORPUSCULAR HGB CONC 33.8 g/dl (32.0-36.5); MEAN CORPUSCULAR VOLUME 89.8 fl (80.0-96.0); RED BLOOD COUNT 3.33 10^6/uL (4.00-5.40); WHITE BLOOD COUNT 4.3 10^3/uL (4.0-10.0)
[2020-02-15 06:13] LABS: PLATELET COUNT, AUTOMATED 31 10^3/uL (150-450)
[2020-02-15 06:35] LABS: ALBUMIN 2.8 GM/DL (3.2-5.2); ALT/SGPT 18 U/L (12-78); BILIRUBIN,TOTAL 0.4 MG/DL (0.2-1.0); BLOOD UREA NITROGEN 11 MG/DL (7-18); CALCIUM LEVEL 7.9 MG/DL (8.8-10.2); CARBON DIOXIDE LEVEL 28 MEQ/L (21-32); CHLORIDE LEVEL 105 MEQ/L (98-107); CREATININE FOR GFR 0.78 MG/DL (0.55-1.30); GLOMERULAR FILTRATION RATE > 60.0 (>39); GLUCOSE, FASTING 121 MG/DL (70-100); MAGNESIUM LEVEL 1.6 MG/DL (1.8-2.4); SODIUM LEVEL 139 MEQ/L (136-145); TOTAL PROTEIN 6.1 GM/DL (6.4-8.2)
[2020-02-15] MEDS ORDERED: MAG SULF 1GM/100ML (MAG RUN) 1 GM in IV 1 EA IV ONE (07:45)
[2020-02-15] MEDS: HumaLOG INSULIN (NovoLOG) PER UNIT SC SCH ×4 (08:51→20:04)
[2020-02-15] MEDS: FAMOTIDINE 20 MG TAB PO SCH (08:52)
[2020-02-15] MEDS: LACTOBACILLUS ACIDOPHILUS CAP (BACID) PO SCH ×4 (08:52→20:19)
[2020-02-15] MEDS: GABAPENTIN 300 MG CAP PO SCH ×3 (08:52→20:19)
[2020-02-15] MEDS: SENOKOT S TAB PO SCH ×2 (08:52→20:19)
[2020-02-15] MEDS: DULoxetine 20 MG CAP (CYMBALTA) PO SCH (08:52)
[2020-02-15] MEDS: MAGNESIUM CHLORIDE 64 MG TABCR (SLO MAG) PO SCH (08:52)
[2020-02-15] MEDS: QUEtiapine FUMARATE 50 MG TAB PO SCH ×2 (08:52→20:19)
[2020-02-15] MEDS: tiZANidine 4 MG TAB PO PRN (08:53)
[2020-02-15] MEDS: METOPROLOL TARTRATE 100 MG TAB PO SCH ×2 (09:02→20:20)
[2020-02-15] MEDS: ISOSORBIDE MON. (IMDUR) 30 MG XR TAB PO SCH (09:02)
--- NOTE | 2020-02-15 10:37 | IPNPDOC ---
Text Note Date of Service The patient was seen on 02/15/20. NOTE SUBJECTIVE: Patient seen and examined this morning sitting up comfortably in a chair. She states her pain has improved, especially in her neck and right shoulder. She continues to have low back pain which is a chronic issue. She has been able to work more with PT as her pain is improved. Her urinary retention resolved after she was able to have a BM, but she is now complaining of burning when she urinates. Denies urinary frequency or urgency. OBJECTIVE: VITAL SIGNS: See below GENERAL: Alert, comfortable, in no acute distress HEENT: Normocephalic, atraumatic, sclerae anicteric, conjunctiva clear, moist mucous membranes NECK: Supple, trachea midline, no lymphadenopathy, no JVD CARDIOVASCULAR: Regular rate and rhythm, normal S1 and S2. No murmurs, rubs, or gallops RESPIRATORY: Clear to auscultation bilaterally with equal air entry bilaterally. No wheezing, rhonchi, or rales. ABDOMEN: Soft, nontender, nondistended, bowel sounds present EXTREMITIES: No cyanosis or edema. Pulses 2+/4 in bilateral upper and lower extremities MUSCULOSKELETAL: Tenderness to palpation over the lower cervical spinous processes and paraspinal musculature. NEUROLOGIC: Alert and oriented x3 to person, place and time. No focal deficits appreciated PSYCHIATRIC: Mood and affect appropriate ASSESSMENT/PLAN: # Acute on chronic neck and back pain with new onset paresthesias Acutely worsened over the 3 days prior to admission without any clear inciting incident Orthopedic surgery consulted, no current indication for surgery Neurology consulted, appreciate their input and recommendations. Started patient on Cymbalta and gabapentin neck MRI negative for any acute source of pain, chronic changes present Blood cultures 2 negative at 48h, rule out possible infectious source such as discitis or abscess, which is low on the differential Pain clinic consulted, appreciate their input and recommendations. Changed her oral Dilaudid to Percocet and increased dose of gabapentin. PT/OT suggesting rehab placement after discharge, pending placement, ARU screen # Dysuria s/p 5 days of zosyn for possible UTI UA obtained in ED, positive for leukocyte esterase and small amount of bacteria. No symptoms at that time. Urine culture contaminated. Completed 5 day course of Zosyn - Today complained of dysuria, recheck UA, reflex culture # Urinary retention, resolved - pt requiring straight cath due to retention - no BM since admission, constipation may be causing urinary retention, fleet enema today to relieve this. - medications reviewed, opiates can cause retention but she is a chronic opiate user and this is new problem so that is an unlikely cause in her case #Fever, resolved Patient developed fever up to 102.1 Fahrenheit. Blood cultures 2 negative at 48 hours. Urine culture shows contamination. No recurrent fevers. Lactic acid level normal. No clear source. Discitis or spinal abscess unlikely, neck MRI negative. - s/p 5 days empiric IV zosyn # Acute on chronic anemia Recently admitted for GI bleed, H&H down trending, stable throughout the day yesterday and this morning. stool occult pending. -s/p 2 units PRBCs give on 02/11 Continue to monitor H&H daily, transfuse for Hg less than 7 # Thrombocytopenia. Stable from recent admission. Continue to monitor daily. LFTs significant only for mildly elevated bilirubin. HIT antibody negative. Additional work up ordered from prior admission including parvovirus b19 and babesia pending. Heme consult on prior admission, recommended outpatient follow-up for likely secondary thrombocytopenia with myelosuppression related to infection plus consumption related to GI bleed, expect platelet counts to improve over the course of 2 weeks. # Hypertension Continue home isosorbide mononitrate and metoprolol Was elevated on admission likely secondary pain, now well controlled. # Atrial fibrillation status post ablation. Continue home metoprolol. No anticoagulation due to GI bleed and low platelet count Mild troponin elevation in the ED which was stable on recheck. No chest pain. # Diabetes mellitus Hold home metformin while inpatient. Sliding scale insulin, hypoglycemic protocol, consistent carbohydrate diet # Hypothyroidism Continue home levothyroxine DVT prophylaxis: Teds and sequentials. Hold on medical prophylaxis due to low platelet count. Disposition: plan for d/c to rehab pending placement Attending attestation: Patient independently seen and evaluated, agree with resident's plan. Alice VELASCO, I+O VSAlice, I+O Laboratory Tests 02/15/20 05:35 Vital Signs Date Time Temp Pulse Resp B/P (MAP) Pulse Ox O2 Delivery O2 Flow Rate FiO2 02/15/20 09:02 70 138/60 02/15/20 06:21 20 02/15/20 06:00 98.1 94 Room Air 02/11/20 05:37 1.0 02/10/20 20:17 94 I&O- Last 24 Hours up to 6 AM 02/15/20 06:00 Intake Total 2625 ml Output Total 1725 ml Balance 900 ml [place]IA GOLDSMITH D.O. Feb 15, 2020 10:37 EUNICE BONILLA MD Feb 21, 2020 22:00
[2020-02-15 14:00] VITALS: BP 93/47
[2020-02-15] MEDS ORDERED: NS 500 ML IV ONE (15:00)
[2020-02-15 17:30] VITALS: BP 117/69
[2020-02-15 22:00] VITALS: BP 124/65
[2020-02-16] MEDS: PERCOCET 5MG/325MG TAB PO PRN ×3 (00:54→15:32)
[2020-02-16 06:00] VITALS: BP 152/74
[2020-02-16] MEDS: LEVOTHYROXINE 100MCG TABLET (0.1MG) PO SCH (06:02)
[2020-02-16 06:39] LABS: HEMATOCRIT 28.2 % (36.0-47.0); HEMOGLOBIN 9.4 g/dl (12.0-15.5); MEAN CORPUSCULAR HEMOGLOBIN 29.8 pg (27.0-33.0); MEAN CORPUSCULAR HGB CONC 33.3 g/dl (32.0-36.5); MEAN CORPUSCULAR VOLUME 89.5 fl (80.0-96.0); RED BLOOD COUNT 3.15 10^6/uL (4.00-5.40)
[2020-02-16 06:44] LABS: PLATELET COUNT, AUTOMATED 28 10^3/uL (150-450)
[2020-02-16 07:00] LABS: ALBUMIN 2.5 GM/DL (3.2-5.2); ALT/SGPT 16 U/L (12-78); BILIRUBIN,TOTAL 0.5 MG/DL (0.2-1.0); BLOOD UREA NITROGEN 12 MG/DL (7-18); CALCIUM LEVEL 8.3 MG/DL (8.8-10.2); CARBON DIOXIDE LEVEL 27 MEQ/L (21-32); CHLORIDE LEVEL 105 MEQ/L (98-107); CREATININE FOR GFR 0.73 MG/DL (0.55-1.30); GLOMERULAR FILTRATION RATE > 60.0 (>39); GLUCOSE, FASTING 100 MG/DL (70-100); MAGNESIUM LEVEL 1.6 MG/DL (1.8-2.4); SODIUM LEVEL 139 MEQ/L (136-145); TOTAL PROTEIN 6.3 GM/DL (6.4-8.2)
[2020-02-16] MEDS: HumaLOG INSULIN (NovoLOG) PER UNIT SC SCH ×4 (07:30→21:00)
[2020-02-16] MEDS: MAGNESIUM CHLORIDE 64 MG TABCR (SLO MAG) PO SCH (08:51)
[2020-02-16] MEDS: GABAPENTIN 300 MG CAP PO SCH ×3 (08:51→21:37)
[2020-02-16] MEDS: LACTOBACILLUS ACIDOPHILUS CAP (BACID) PO SCH ×4 (08:51→21:37)
[2020-02-16] MEDS: QUEtiapine FUMARATE 50 MG TAB PO SCH ×2 (08:51→21:37)
[2020-02-16] MEDS: DULoxetine 20 MG CAP (CYMBALTA) PO SCH (08:51)
[2020-02-16] MEDS: METOPROLOL TARTRATE 100 MG TAB PO SCH ×2 (08:51→21:39)
[2020-02-16] MEDS: ISOSORBIDE MON. (IMDUR) 30 MG XR TAB PO SCH (08:52)
[2020-02-16] MEDS: SENOKOT S TAB PO SCH ×2 (08:52→21:00)
[2020-02-16] MEDS: FAMOTIDINE 20 MG TAB PO SCH (08:52)
[2020-02-16 14:00] VITALS: BP 150/66
--- NOTE | 2020-02-16 14:31 | IPNPDOC ---
Text Note Date of Service The patient was seen on 02/16/20. NOTE SUBJECTIVE: Patient seen and examined this morning sitting up comfortably in a chair. She states her low back pain continues to bother her the most. Her neck pain has improved greatly. She still feels somewhat sore in her right shoulder. She continues to work with PT. States her dysuria from yesterday has complete resolved. OBJECTIVE: VITAL SIGNS: See below GENERAL: Alert, comfortable, in no acute distress HEENT: Normocephalic, atraumatic, sclerae anicteric, conjunctiva clear, moist mucous membranes NECK: Supple, trachea midline, no lymphadenopathy, no JVD CARDIOVASCULAR: Regular rate and rhythm, normal S1 and S2. No murmurs, rubs, or gallops RESPIRATORY: Clear to auscultation bilaterally with equal air entry bilaterally. No wheezing, rhonchi, or rales. ABDOMEN: Soft, nontender, nondistended, bowel sounds present EXTREMITIES: No cyanosis or edema. Pulses 2+/4 in bilateral upper and lower extremities MUSCULOSKELETAL: Tenderness to palpation over the lower cervical spinous processes and paraspinal musculature. NEUROLOGIC: Alert and oriented x3 to person, place and time. No focal deficits appreciated PSYCHIATRIC: Mood and affect appropriate ASSESSMENT/PLAN: # Acute on chronic neck and back pain with new onset paresthesias Acutely worsened over the 3 days prior to admission without any clear inciting incident Orthopedic surgery consulted, no current indication for surgery Neurology consulted, appreciate their input and recommendations. Started patie nt on Cymbalta and gabapentin neck MRI negative for any acute source of pain, chronic changes present Blood cultures 2 negative at 48h, rule out possible infectious source such as discitis or abscess, which is low on the differential Pain clinic consulted, appreciate their input and recommendations. Changed her oral Dilaudid to Percocet and increased dose of gabapentin. PT/OT suggesting rehab placement after discharge, pending placement, ARU screen # Dysuria s/p 5 days of zosyn for possible UTI, resolved today UA obtained in ED, positive for leukocyte esterase and small amount of bacter ia. No symptoms at that time. Urine culture contaminated. Completed 5 day course of Zosyn - Yesterday complained of dysuria, recheck UA, reflex culture pending, no abx at this time, dysuria resolved today - 1 day of dysuria may have been secondary to irritation from straight cath # Urinary retention, resolved - pt requiring straight cath due to retention - no BM since admission, constipation may be causing urinary retention, fleet enema today to relieve this. - medications reviewed, opiates can cause retention but she is a chronic opiate user and this is new problem so that is an unlikely cause in her case #Fever, resolved Patient developed fever up to 102.1 Fahrenheit. Blood cultures 2 negative at 48 hours. Urine culture shows contamination. No recurrent fevers. Lactic acid level normal. No clear source. Discitis or spinal abscess unlikely, neck MRI negative. - s/p 5 days empiric IV zosyn # Acute on chronic anemia Recently admitted for GI bleed, H&H down trending, stable throughout the day yesterday and this morning. stool occult pending. -s/p 2 units PRBCs give on 02/11 Continue to monitor H&H daily, transfuse for Hg less than 7 # Thrombocytopenia. Stable from recent admission. Continue to monitor daily. LFTs significant only for mildly elevated bilirubin. HIT antibody negative. Additional work up ordered from prior admission including parvovirus b19 and babesia pending. Heme consult on prior admission, recommended outpatient follow-up for likely secondary thrombocytopenia with myelosuppression related to infection plus consumption related to GI bleed, expect platelet counts to improve over the course of 2 weeks. # Hypertension Continue home isosorbide mononitrate and metoprolol Was elevated on admission likely secondary pain, now well controlled. # Atrial fibrillation status post ablation. Continue home metoprolol. No anticoagulation due to GI bleed and low platelet count Mild troponin elevation in the ED which was stable on recheck. No chest pain. # Diabetes mellitus Hold home metformin while inpatient. Sliding scale insulin, hypoglycemic protocol, consistent carbohydrate diet # Hypothyroidism Continue home levothyroxine DVT prophylaxis: Teds and sequentials. Hold on medical prophylaxis due to low platelet count. Disposition: plan for d/c to rehab pending placement VS,Alice, I+O VS, Alice, I+O Laboratory Tests 02/16/20 06:20 Vital Signs Date Time Temp Pulse Resp B/P (MAP) Pulse Ox O2 Delivery O2 Flow Rate FiO2 02/16/20 09:23 17 Room Air 02/16/20 08:51 72 165/77 02/16/20 06:00 98.8 98 02/11/20 05:37 1.0 02/10/20 20:17 94 I&O- Last 24 Hours up to 6 AM 02/16/20 06:00 Intake Total 2070 ml Output Total 950 ml Balance 1120 ml GME ATTESTATION I have personally evaluated and examined the patient. Discussed with resident/student regarding plan of care and agree with the above assessment and plan. INDIA GOLDSMITH D.O. Feb 16, 2020 14:30 ROBERTO QUIÑONES MD Feb 16, 2020 18:28
[2020-02-16] MEDS ORDERED: PERCOCET PO (15:18)
[2020-02-16] MEDS ORDERED: GABA-843 PO (15:18)
[2020-02-16] MEDS ORDERED: QUET5TAB PO (15:18)
[2020-02-16] MEDS ORDERED: CYMB1CAP4 PO (15:18)
--- NOTE | 2020-02-16 17:02 | DS.PDOC ---
Discharge Summary General Date of Admission Feb 09, 2020 at 17:33 Date of Discharge 02/23/2020 Primary Care Physician: Jakub Burgess MD Attending Physician: ROBERTO QUIÑONES MD Discharge Summary PROCEDURES PERFORMED DURING STAY: None. ADMITTING DIAGNOSES: 1. Acute on chronic neck and back pain with new onset paresthesias 2. Chronic anemia, stable 3. Thrombocytopenia. 4. Hypertension. 5. Type 2 diabetes mellitus 6. Atrial fibrillation status post ablation. 7. Hypothyroidism. 8. Recurrent nephrolithiasis. 9. 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 11. Vertebral artery stenosis. DISCHARGE DIAGNOSES: 1. Acute on chronic neck and back pain with new onset paresthesias 2. Chronic anemia, stable 3. Thrombocytopenia. 4. Hypertension. 5. Type 2 diabetes mellitus 6. Atrial fibrillation status post ablation. 7. Hypothyroidism. 8. Recurrent nephrolithiasis. 9. 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 11. Vertebral artery stenosis. COMPLICATIONS/CHIEF COMPLAINT: Intractable Back Pain. HISTORY OF PRESENT ILLNESS: 79-year-old female who presented to the emergency department today for 3 days of worsening back pain and paresthesias. The patient was recently admitted on 01/23/20 for GI bleed and was subsequently discharged on 02/05/20. She states that when she initially returned home. Her pain was about at her baseline. However, over the past 3 days she has had worsening pain up to a 10 out of 10. She cannot describe the character of the pain to me. She states that she cannot move without having sharp pain. She also endorses paresthesias in bilateral arms and legs, which extended from her fingertips up to her shoulders and from her toes up to the tops of her thighs. She states she has had occasional numbness and tingling in the past but never to this extent. She denies any changes over the past few days at home or any inciting incident prior to her increased pain. She has had multiple doses of pain medications while in the ED without much effect. She states she has been taking her regularly scheduled medications at home, but they have not been helping. She does follow with pain management and has received spine injections. On review of her chart, Dr. Grover had referred her to a neuro surgeon for further evaluation (referral sent 6/4/20), but she has not yet seen the neurosurgeon. She has also been seen previously by orthopedic surgery in [place] for her back pain but denies ever having surgery for this. HOSPITAL COURSE: The patient was admitted to the hospital and consults were placed for neurology and orthopedic surgery. Neurology suggested adding Cymbalta and gabapentin. 2. The patient's pain management regimen as well as restarting the patient on Seroquel, which she had been taking in the past. Orthopedic surge ry did not see any indication for surgical intervention. Patient continued to have complaints of acute pain and pain management consult was placed. The recommendations were to increase the dosing of gabapentin and switch the patient's home. Hydromorphone to Percocet. Over the course of following days, her pain did improve. She did spike a fever on her first night of admission and was started on empiric antibiotics with IV Zosyn which she was maintained on for 5 days. She did not have any recurrent fever. There was some difficulty obtaining a neck MRI because the patient had an implantable loop recorder placed in August 2019. However, we were able to obtain the operative report for the implantable loop recorder and it was 1 that allowed for MRI. Neck MRI did not show any acute disease. During the patient's admission, her hemoglobin level trended down and she required 2 units PRBCs due to lethargy with a hemoglobin of 7.6. At that time, stool occult was checked and was negative. She did recently have an admission for GI bleeding. After the blood transfusion, her H&H has remained stable. Throughout her admission, her platelet count has been stable around 30. This is stable from her prior admission where she was seen by hematology/oncology who recommended outpatient follow-up. The workup obtained during her last admission was negative for any clear source of the thrombocytopenia. During the patient's admission, she did have some urinary retention which required straight catheterization. This occurred in conjunction with over 5 days of constipation. Her urinary retention, resolved after she was able to have a bowel movement. She did have some dysuria after the straight catheterization was performed. UA was not concerning for infection, so no antibiotics were started. Her dysuria resolved the following day. The patient worked with physical therapy and occupational therapy who suggested discharge to acute rehabilitation unit for further rehabilitation prior to returning home. DISCHARGE MEDICATIONS: Please see below. ALLERGIES: Please see below. PHYSICAL EXAMINATION ON DISCHARGE: VITAL SIGNS: Please see below. GENERAL: Alert, comfortable, in no acute distress HEENT: Normocephalic, atraumatic, sclerae anicteric, conjunctiva clear, moist mucous membranes NECK: Supple, trachea midline, no lymphadenopathy, no JVD CARDIOVASCULAR: Regular rate and rhythm, normal S1 and S2. No murmurs, rubs, or gallops RESPIRATORY: Clear to auscultation bilaterally with equal air entry bilaterally. No wheezing, rhonchi, or rales. ABDOMEN: Soft, nontender, nondistended, bowel sounds present EXTREMITIES: No cyanosis or edema. Pulses 2+/4 in bilateral upper and lower extremities MUSCULOSKELETAL: Tenderness to palpation over the lower cervical spinous processes and paraspinal musculature. NEUROLOGIC: Alert and oriented x3 to person, place and time. No focal deficits appreciated PSYCHIATRIC: Mood and affect appropriate LABORATORY DATA: Please see below. IMAGING: - Head CT: Report pending - Cervical spine CT: Report pending - CTA chest: No pulmonary embolus. Chronic changes are suspected as described above - CT abdomen/pelvis: No acute disease or significant change from the prior exam PROGNOSIS: Fair ACTIVITY: Per PT DIET: As tolerated DISCHARGE PLAN: Transfer to acute rehab unit DISPOSITION: [place] DISCHARGE INSTRUCTIONS: 1. Follow up with PCP 7-10 days after discharge 2. Follow up with pain management as scheduled ITEMS TO FOLLOWUP ON ON OUTPATIENT: 1. Chronic pain management DISCHARGE CONDITION: Stable. TIME SPENT ON DISCHARGE: 35 minutes. Vital Signs/I&Os Vital Signs Date Time Temp Pulse Resp B/P (MAP) Pulse Ox O2 Delivery O2 Flow Rate FiO2 02/16/20 15:32 17 Room Air 02/16/20 14:00 98.5 60 150/66 (94) 95 02/11/20 05:37 1.0 02/10/20 20:17 94 I&O- Last 24 Hours up to 6 AM 02/16/20 05:59 Intake Total 2070 ml Output Total 800 ml Balance 1270 ml Laboratory Data Labs 24H Laboratory Tests 2 02/15/20 20:02: Bedside Glucose (Misc Panel) 169H 02/15/20 20:41: Urine Color YELLOW, Urine Appearance CLEAR, Urine pH 5.0, Urine Specific [place] 1.020, Urine Protein NEGATIVE, Urine Glucose (UA) NEGATIVE, Urine Ketones NEGATIVE, Urine Blood NEGATIVE, Urine Nitrite NEGATIVE, Urine Bilirubin NEGATIVE, Urine Urobilinogen 0.2, Urine Leukocyte Esterase TRACEH, Urine WBC (Auto) 28H, Urine RBC (Auto) 9H, Urine Hyaline Casts (Auto) 0, Urine Bacteria (Auto) NEGATIVE, Urine Squamous Epithelial Cells 1, Urine Mucus (Auto) SMALL, Urine Yeast-Like Cells (Auto) MODERATEH, Urine Sperm (Auto) 02/16/20 06:20: Nucleated Red Blood Cells % (auto) 0.0, Immature Platelet Fraction 5.2, Anion Gap 7L, Glomerular Filtration Rate > 60.0, Calcium Level 8.3L, Magnesium Level 1.6L, Total Bilirubin 0.5, Aspartate Amino Transf (AST/SGOT) 15, Alanine Aminotransferase (ALT/SGPT) 16, Alkaline Phosphatase 56, Total Protein 6.3L, Albumin 2.5L, Albumin/Globulin Ratio 0.7L 02/16/20 11:20: Bedside Glucose (Misc Panel) 106 CBC/BMP Laboratory Tests 02/16/20 06:20 FSBS Laboratory Tests Test 02/15/20 20:02 02/16/20 11:20 Range/Units Bedside Glucose (Misc Panel) 169 106 83-110 MG/DL Microbiology Microbiology 02/15/20 Urine Culture, Received Pending 02/13/20 Stool Occult Blood (PASQUALE) - Final, Complete 02/09/20 Urine Culture - Final, Complete 02/09/20 Blood Culture - Final, Complete NO GROWTH AFTER 5 DAYS 02/09/20 Blood Culture - Final, Complete NO GROWTH AFTER 5 DAYS Discharge Medications Scheduled Duloxetine HCl (Cymbalta) 20 Mg Capsule.dr, 20 MG PO DAILY Famotidine (Famotidine) 40 Mg Tablet, 40 MG PO DAILY, (Reported) Gabapentin (Gabapentin) 300 Mg Capsule, 300 MG PO TID Isosorbide Mononitrate (Isosorbide Mononitrate ER) 30 Mg Tab.er.24h, 30 MG PO DAILY, (Reported) L.acidoph/L.bulg/B.bif/S.therm (Sharon-Bid Caplet) 1 Each Tablet, 1 TAB PO WMHS, (Reported) Levothyroxine Sodium (Synthroid) 100 Mcg Tablet, 100 MCG PO DAILY, (Reported) Magnesium Chloride (Mag64) 64 Mg Tablet.dr, 64 MG PO DAILY Melatonin (Melatonin) 5 Mg Tablet, 5 MG PO QHS, (Reported) Metformin HCl (Metformin HCl) 500 Mg Tab, 1,000 MG PO BID, (Reported) 2ND DOSE AT 1730 Metoprolol Tartrate (Metoprolol Tartrate) 50 Mg Tablet, 100 MG PO BID, (Reported) Potassium Chloride (Potassium Chloride) 10 Meq Tablet.er, 10 MEQ PO BID, (Reported) Quetiapine Fumarate (Quetiapine Fumarate) 50 Mg Tablet, 50 MG PO BID Scheduled PRN Diclofenac Epolamine (Diclofenac Epolamine) 1 Each Patch.td12, 1 PATCH TOP Q12H PRN for PAIN, (Reported) APPLY TO LOWER BACK Oxycodone/Acetaminophen (Oxycodone-Acetaminophen 5-325) 1 Each Tablet, 2 TAB PO Q6HP PRN for SEVERE PAIN (PS 8-10) Take 1-2 tabs every 6 hours for pain Polyethylene Glycol 3350 (Polyethylene Glycol 3350) 17 Gm Powd.pack, 17 GRAM PO DAILY PRN for CONSTIPATION, (Reported) Tizanidine HCl (Tizanidine HCl) 2 Mg Tablet, 2 MG PO QID PRN for MUSCLE SPASMS, (Reported) Allergies Coded Allergies: Sulfa (Sulfonamide Antibiotics) (Verified Allergy, Intermediate, HIVES, 04/29/19) GME ATTESTATION I have personally evaluated and examined the patient. Discussed with resident/student regarding plan of care and agree with the above assessment and plan. INDIA GOLDSMITH D.O. Feb 16, 2020 17:02 ROBERTO QUIÑONES MD Feb 23, 2020 11:21
[2020-02-16 22:00] VITALS: BP 145/60
[2020-02-17] MEDS: PERCOCET 5MG/325MG TAB PO PRN ×3 (02:13→21:34)
[2020-02-17 06:00] VITALS: BP 149/60
[2020-02-17] MEDS: LEVOTHYROXINE 100MCG TABLET (0.1MG) PO SCH (06:00)
[2020-02-17] MEDS ORDERED: MAGN64TASA PO (07:34)
[2020-02-17] MEDS: MAG SULF 1GM/100ML (MAG RUN) 1 GM in IV 1 EA IV SCH ×2 (08:49→09:53)
[2020-02-17] MEDS: FAMOTIDINE 20 MG TAB PO SCH (08:50)
[2020-02-17] MEDS: HumaLOG INSULIN (NovoLOG) PER UNIT SC SCH ×4 (08:50→21:00)
[2020-02-17] MEDS: QUEtiapine FUMARATE 50 MG TAB PO SCH ×2 (08:50→21:35)
[2020-02-17] MEDS: LACTOBACILLUS ACIDOPHILUS CAP (BACID) PO SCH ×4 (08:50→21:34)
[2020-02-17] MEDS: SENOKOT S TAB PO SCH ×2 (08:50→21:33)
[2020-02-17] MEDS: METOPROLOL TARTRATE 100 MG TAB PO SCH ×2 (08:51→21:37)
[2020-02-17] MEDS: DULoxetine 20 MG CAP (CYMBALTA) PO SCH (08:51)
[2020-02-17] MEDS: GABAPENTIN 300 MG CAP PO SCH ×3 (08:51→21:35)
[2020-02-17] MEDS: MAGNESIUM CHLORIDE 64 MG TABCR (SLO MAG) PO SCH (08:51)
[2020-02-17] MEDS: ISOSORBIDE MON. (IMDUR) 30 MG XR TAB PO SCH (08:51)
[2020-02-17 14:00] VITALS: BP 112/46
--- NOTE | 2020-02-17 17:38 | IPNPDOC ---
Text Note Date of Service The patient was seen on 02/17/20. NOTE SUBJECTIVE: Patient seen and examined this morning sitting up comfortably in a chair. She continues to complain mainly of low back pain. Her neck pain has remained resolved and she does have some aching in the right shoulder which is much improved from admission. She has no additional complaints or concerns today. OBJECTIVE: VITAL SIGNS: See below GENERAL: Alert, comfortable, in no acute distress HEENT: Normocephalic, atraumatic, sclerae anicteric, conjunctiva clear, moist mucous membranes NECK: Supple, trachea midline, no lymphadenopathy, no JVD CARDIOVASCULAR: Regular rate and rhythm, normal S1 and S2. No murmurs, rubs, or gallops RESPIRATORY: Clear to auscultation bilaterally with equal air entry bilaterally. No wheezing, rhonchi, or rales. ABDOMEN: Soft, nontender, nondistended, bowel sounds present EXTREMITIES: No cyanosis or edema. Pulses 2+/4 in bilateral upper and lower extremities MUSCULOSKELETAL: Tenderness to palpation over the lower cervical spinous processes and paraspinal musculature. NEUROLOGIC: Alert and oriented x3 to person, place and time. No focal deficits appreciated PSYCHIATRIC: Mood and affect appropriate ASSESSMENT/PLAN: # Acute on chronic neck and back pain with new onset paresthesias Acutely worsened over the 3 days prior to admission without any clear inciting incident Orthopedic surgery consulted, no current indication for surgery Neurology consulted, appreciate their input and recommendations. Started patient on Cymbalta and gabapentin neck MRI negative for any acute source of pain, chronic changes present Blood cultures 2 negative at 48h, rule out possible infectious source such as discitis or abscess, which is low on the differential Pain clinic consulted, appreciate their input and recommendations. Changed her oral Dilaudid to Percocet and increased dose of gabapentin. PT/OT suggesting rehab placement after discharge, pending placement, ARU screen # Dysuria s/p 5 days of zosyn for possible UTI, resolved today UA obtained in ED, positive for leukocyte esterase and small amount of bacteria. No symptoms at that time. Urine culture contaminated. Completed 5 day course of Zosyn - Yesterday complained of dysuria, recheck UA, reflex culture pending, no abx, dysuria resolved, culture negative - 1 day of dysuria may have been secondary to irritation from straight cath # Urinary retention, resolved - pt requiring straight cath due to retention - no BM since admission, constipation may be causing urinary retention, fleet enema today to relieve this. - medications reviewed, opiates can cause retention but she is a chronic opiate user and this is new problem so that is an unlikely cause in her case #Fever, resolved Patient developed fever up to 102.1 Fahrenheit. Blood cultures 2 negative at 48 hours. Urine culture shows contamination. No recurrent fevers. Lactic acid level normal. No clear source. Discitis or spinal abscess unlikely, neck MRI negative. - s/p 5 days empiric IV zosyn # Acute on chronic anemia Recently admitted for GI bleed, H&H down trending, stable throughout the day yesterday and this morning. stool occult pending. -s/p 2 units PRBCs give on 02/11 Continue to monitor H&H daily, transfuse for Hg less than 7 # Thrombocytopenia. Stable from recent admission. Continue to monitor daily. LFTs significant only for mildly elevated bilirubin. HIT antibody negative. Additional work up ordered from prior admission including parvovirus b19 and babesia pending. Heme consult on prior admission, recommended outpatient follow-up for likely secondary thrombocytopenia with myelosuppression related to infection plus consumption related to GI bleed, expect platelet counts to improve over the course of 2 weeks. # Hypertension Continue home isosorbide mononitrate and metoprolol Was elevated on admission likely secondary pain, now well controlled. # Atrial fibrillation status post ablation. Continue home metoprolol. No anticoagulation due to GI bleed and low platelet count Mild troponin elevation in the ED which was stable on recheck. No chest pain. # Diabetes mellitus Hold home metformin while inpatient. Sliding scale insulin, hypoglycemic protocol, consistent carbohydrate diet # Hypothyroidism Continue home levothyroxine DVT prophylaxis: Teds and sequentials. Hold on medical prophylaxis due to low platelet count. Disposition: plan for d/c to ARU or other rehab GME ATTESTATION I have personally evaluated and examined the patient. Discussed with resident/student regarding plan of care and agree with the above assessment and plan. VS,Fishbone, I+O VS, Fishbone, I+O Vital Signs Date Time Temp Pulse Resp B/P (MAP) Pulse Ox O2 Delivery O2 Flow Rate FiO2 02/17/20 14:00 98.5 57 20 112/46 (68) 95 Room Air 02/11/20 05:37 1.0 I&O- Last 24 Hours up to 6 AM 02/17/20 06:00 Intake Total 1020 ml Output Total 1500 ml Balance -480 ml INDIA GOLDSMITH D.O. Feb 17, 2020 17:38 ROBERTO QUIÑONES MD Feb 17, 2020 18:20
[2020-02-17 22:00] VITALS: BP 170/72
[2020-02-18] MEDS: LEVOTHYROXINE 100MCG TABLET (0.1MG) PO SCH (05:42)
[2020-02-18] MEDS: PERCOCET 5MG/325MG TAB PO PRN ×2 (05:43→17:32)
[2020-02-18 06:00] VITALS: BP 147/63
[2020-02-18 06:08] LABS: HEMATOCRIT 25.8 % (36.0-47.0); HEMOGLOBIN 8.7 g/dl (12.0-15.5); MEAN CORPUSCULAR HEMOGLOBIN 29.8 pg (27.0-33.0); MEAN CORPUSCULAR HGB CONC 33.7 g/dl (32.0-36.5); MEAN CORPUSCULAR VOLUME 88.4 fl (80.0-96.0); PLATELET COUNT, AUTOMATED 27 10^3/uL (150-450); RED BLOOD COUNT 2.92 10^6/uL (4.00-5.40); WHITE BLOOD COUNT 3.9 10^3/uL (4.0-10.0)
[2020-02-18 06:30] LABS: BLOOD UREA NITROGEN 13 MG/DL (7-18); CALCIUM LEVEL 7.7 MG/DL (8.8-10.2); CARBON DIOXIDE LEVEL 29 MEQ/L (21-32); CHLORIDE LEVEL 105 MEQ/L (98-107); CREATININE FOR GFR 0.74 MG/DL (0.55-1.30); GLOMERULAR FILTRATION RATE > 60.0 (>39); GLUCOSE, FASTING 107 MG/DL (70-100); MAGNESIUM LEVEL 1.7 MG/DL (1.8-2.4); POTASSIUM SERUM 3.8 MEQ/L (3.5-5.1); SODIUM LEVEL 142 MEQ/L (136-145)
[2020-02-18] MEDS: HumaLOG INSULIN (NovoLOG) PER UNIT SC SCH ×4 (08:48→21:00)
[2020-02-18] MEDS: FAMOTIDINE 20 MG TAB PO SCH (08:49)
[2020-02-18] MEDS: METOPROLOL TARTRATE 100 MG TAB PO SCH ×2 (08:49→22:02)
[2020-02-18] MEDS: DULoxetine 20 MG CAP (CYMBALTA) PO SCH (08:49)
[2020-02-18] MEDS: LACTOBACILLUS ACIDOPHILUS CAP (BACID) PO SCH ×4 (08:49→22:01)
[2020-02-18] MEDS: SENOKOT S TAB PO SCH ×2 (08:49→22:01)
[2020-02-18] MEDS: MAGNESIUM CHLORIDE 64 MG TABCR (SLO MAG) PO SCH (08:49)
[2020-02-18] MEDS: GABAPENTIN 300 MG CAP PO SCH ×3 (08:49→22:01)
[2020-02-18] MEDS: QUEtiapine FUMARATE 50 MG TAB PO SCH ×2 (08:50→22:02)
[2020-02-18] MEDS: ISOSORBIDE MON. (IMDUR) 30 MG XR TAB PO SCH (08:50)
[2020-02-18] MEDS: tiZANidine 4 MG TAB PO PRN ×2 (09:04→22:03)
--- NOTE | 2020-02-18 11:03 | IPNPDOC ---
Text Note Date of Service The patient was seen on 02/18/20. NOTE SUBJECTIVE: Patient seen and examined this morning sitting up comfortably in bed. She states she is still having a lot of low back pain. She is hoping that being up moving more during rehab will be helpful. OBJECTIVE: VITAL SIGNS: See below GENERAL: Alert, comfortable, in no acute distress HEENT: Normocephalic, atraumatic, sclerae anicteric, conjunctiva clear, moist mucous membranes NECK: Supple, trachea midline, no lymphadenopathy, no JVD CARDIOVASCULAR: Regular rate and rhythm, normal S1 and S2. No murmurs, rubs, or gallops RESPIRATORY: Clear to auscultation bilaterally with equal air entry bilaterally. No wheezing, rhonchi, or rales. ABDOMEN: Soft, nontender, nondistended, bowel sounds present EXTREMITIES: No cyanosis or edema. Pulses 2+/4 in bilateral upper and lower extremities MUSCULOSKELETAL: Tenderness to palpation over the lower cervical spinous process es and paraspinal musculature. NEUROLOGIC: Alert and oriented x3 to person, place and time. No focal deficits appreciated PSYCHIATRIC: Mood and affect appropriate ASSESSMENT/PLAN: # Acute on chronic neck and back pain with new onset paresthesias Acutely worsened over the 3 days prior to admission without any clear inciting incident Orthopedic surgery consulted, no current indication for surgery Neurology consulted, appreciate their input and recommendations. Started patient on Cymbalta and gabapentin neck MRI negative for any acute source of pain, chronic changes present Blood cultures 2 negative at 48h, rule out possible infectious source such as discitis or abscess, which is low on the differential Pain clinic consulted, appreciate their input and recommendations. Changed her oral Dilaudid to Percocet and increased dose of gabapentin. PT/OT suggesting rehab placement after discharge, pending placement, ARU screen # Dysuria s/p 5 days of zosyn for possible UTI, resolved today UA obtained in ED, positive for leukocyte esterase and small amount of bacteria. No symptoms at that time. Urine culture contaminated. Completed 5 day course of Zosyn - Yesterday complained of dysuria, recheck UA, reflex culture pending, no abx, dysuria resolved, culture negative - 1 day of dysuria may have been secondary to irritation from straight cath # Urinary retention, resolved - pt requiring straight cath due to retention - no BM since admission, constipation may be causing urinary retention, fleet enema today to relieve this. - medications reviewed, opiates can cause retention but she is a chronic opiate user and this is new problem so that is an unlikely cause in her case #Fever, resolved Patient developed fever up to 102.1 Fahrenheit. Blood cultures 2 negative at 48 hours. Urine culture shows contamination. No recurrent fevers. Lactic acid level normal. No clear source. Discitis or spinal abscess unlikely, neck MRI negative. - s/p 5 days empiric IV zosyn # Acute on chronic anemia Recently admitted for GI bleed, H&H down trending, stable throughout the day yesterday and this morning. stool occult pending. -s/p 2 units PRBCs give on 02/11 Continue to monitor H&H daily, transfuse for Hg less than 7 # Thrombocytopenia. Stable from recent admission. Continue to monitor daily. LFTs significant only for mildly elevated bilirubin. HIT antibody negative. Additional work up ordered from prior admission including parvovirus b19 and babesia pending. Heme consult on prior admission, recommended outpatient follow-up for likely secondary thrombocytopenia with myelosuppression related to infection plus consumption related to GI bleed, expect platelet counts to improve over the course of 2 weeks. # Hypertension Continue home isosorbide mononitrate and metoprolol Was elevated on admission likely secondary pain, now well controlled. # Atrial fibrillation status post ablation. Continue home metoprolol. No anticoagulation due to GI bleed and low platelet count Mild troponin elevation in the ED which was stable on recheck. No chest pain. # Diabetes mellitus Hold home metformin while inpatient. Sliding scale insulin, hypoglycemic protocol, consistent carbohydrate diet # Hypothyroidism Continue home levothyroxine DVT prophylaxis: Teds and sequentials. Hold on medical prophylaxis due to low platelet count. Disposition: plan for d/c to ARU or other rehab I have personally evaluated and examined the patient. Discussed with resident/student regarding plan of care and agree with the above assessment and plan. VS,Pipoe, I+O VS, Fishbone, I+O Laboratory Tests 02/18/20 05:36 Vital Signs Date Time Temp Pulse Resp B/P (MAP) Pulse Ox O2 Delivery O2 Flow Rate FiO2 02/18/20 08:49 61 156/84 02/18/20 06:13 18 Room Air 02/18/20 06:00 96.3 93 I&O- Last 24 Hours up to 6 AM 02/18/20 06:00 Intake Total 1110 ml Output Total 1275 ml Balance -165 ml INDIA GOLDSMITH D.O. Feb 18, 2020 11:03 ROBERTO QUIÑONES MD Feb 18, 2020 18:08
[2020-02-18] MEDS ORDERED: MAG SULF 1GM/100ML (MAG RUN) 1 GM in IV 1 EA IV ONE (11:15)
[2020-02-18 14:00] VITALS: BP 160/70
[2020-02-18] MEDS: MORPHINE 2 MG/ML 1ML VIAL (J2270) IV PRN ×2 (18:29→22:42)
[2020-02-18 22:00] VITALS: BP 166/68
[2020-02-19] MEDS: LEVOTHYROXINE 100MCG TABLET (0.1MG) PO SCH (05:33)
[2020-02-19] MEDS: PERCOCET 5MG/325MG TAB PO PRN ×3 (05:34→20:37)
[2020-02-19 06:00] VITALS: BP 123/60
[2020-02-19 08:46] LABS: HEMATOCRIT 26.4 % (36.0-47.0); HEMOGLOBIN 8.7 g/dl (12.0-15.5); MEAN CORPUSCULAR HEMOGLOBIN 29.5 pg (27.0-33.0); MEAN CORPUSCULAR VOLUME 89.5 fl (80.0-96.0); RED BLOOD COUNT 2.95 10^6/uL (4.00-5.40); WHITE BLOOD COUNT 3.2 10^3/uL (4.0-10.0)
[2020-02-19 08:55] LABS: PLATELET COUNT, AUTOMATED 27 10^3/uL (150-450)
[2020-02-19] MEDS: METOPROLOL TARTRATE 100 MG TAB PO SCH ×2 (09:00→20:38)
[2020-02-19] MEDS: MAGNESIUM CHLORIDE 64 MG TABCR (SLO MAG) PO SCH (09:00)
[2020-02-19] MEDS: ISOSORBIDE MON. (IMDUR) 30 MG XR TAB PO SCH (09:00)
[2020-02-19] MEDS: HumaLOG INSULIN (NovoLOG) PER UNIT SC SCH ×4 (09:00→20:39)
[2020-02-19] MEDS: GABAPENTIN 300 MG CAP PO SCH ×3 (09:01→20:37)
[2020-02-19] MEDS: FAMOTIDINE 20 MG TAB PO SCH (09:01)
[2020-02-19] MEDS: SENOKOT S TAB PO SCH ×2 (09:01→20:39)
[2020-02-19] MEDS: DULoxetine 20 MG CAP (CYMBALTA) PO SCH (09:02)
[2020-02-19] MEDS: LACTOBACILLUS ACIDOPHILUS CAP (BACID) PO SCH ×4 (09:02→20:37)
[2020-02-19] MEDS: QUEtiapine FUMARATE 50 MG TAB PO SCH ×2 (09:02→21:46)
[2020-02-19 09:13] LABS: BLOOD UREA NITROGEN 13 MG/DL (7-18); CALCIUM LEVEL 8.1 MG/DL (8.8-10.2); CARBON DIOXIDE LEVEL 30 MEQ/L (21-32); CHLORIDE LEVEL 106 MEQ/L (98-107); CREATININE FOR GFR 0.74 MG/DL (0.55-1.30); GLOMERULAR FILTRATION RATE > 60.0 (>39); GLUCOSE, FASTING 113 MG/DL (70-100); POTASSIUM SERUM 4.1 MEQ/L (3.5-5.1); SODIUM LEVEL 143 MEQ/L (136-145)
[2020-02-19] MEDS: MORPHINE 2 MG/ML 1ML VIAL (J2270) IV PRN ×3 (09:19→21:53)
[2020-02-19 14:46] LABS: MAGNESIUM LEVEL 1.8 MG/DL (1.8-2.4)
--- NOTE | 2020-02-19 14:55 | IPNPDOC ---
Text Note Date of Service The patient was seen on 02/19/20. NOTE SUBJECTIVE: Patient seen and examined this morning sitting up comfortably in bed. She states she is still having a lot of low back pain, but she feels better when working with PT. She did notice something on her left breast that felt like it might be a lump that she wanted looked a this morning. OBJECTIVE: VITAL SIGNS: See below GENERAL: Alert, comfortable, in no acute distress HEENT: Normocephalic, atraumatic, sclerae anicteric, conjunctiva clear, moist mucous membranes NECK: Supple, trachea midline, no lymphadenopathy, no JVD CARDIOVASCULAR: Regular rate and rhythm, normal S1 and S2. No murmurs, rubs, or gallops RESPIRATORY: Clear to auscultation bilaterally with equal air entry bilaterally. No wheezing, rhonchi, or rales. BREAST: There is a hard foreign body palpated over the left medial chest in the third intercostal space just lateral to the sternum, in the location where her loop recorder is expected to be. ABDOMEN: Soft, nontender, nondistended, bowel sounds present EXTREMITIES: No cyanosis or edema. Pulses 2+/4 in bilateral upper and lower extremities MUSCULOSKELETAL: Tenderness to palpation over the lower cervical spinous processes and paraspinal musculature. NEUROLOGIC: Alert and oriented x3 to person, place and time. No focal deficits appreciated PSYCHIATRIC: Mood and affect appropriate ASSESSMENT/PLAN: # Acute on chronic neck and back pain with new onset paresthesias Acutely worsened over the 3 days prior to admission without any clear inciting incident Orthopedic surgery consulted, no current indication for surgery Neurology consulted, appreciate their input and recommendations. Started patient on Cymbalta and gabapentin neck MRI negative for any acute source of pain, chronic changes present Blood cultures 2 negative at 48h, rule out possible infectious source such as discitis or abscess, which is low on the differential Pain clinic consulted, appreciate their input and recommendations. Changed her oral Dilaudid to Percocet and increased dose of gabapentin. PT/OT suggesting rehab placement after discharge, pending placement, ARU screen #Breast concern - Object in breast feels like the implantable loop recorder she had placed. I do not suspect this is a breast mass. # Dysuria s/p 5 days of zosyn for possible UTI, resolved today UA obtained in ED, positive for leukocyte esterase and small amount of bacteria. No symptoms at that time. Urine culture contaminated. Completed 5 day course of Zosyn - Yesterday complained of dysuria, recheck UA, reflex culture pending, no abx, dysuria resolved, culture negative - 1 day of dysuria may have been secondary to irritation from straight cath # Urinary retention, resolved - pt requiring straight cath due to retention - no BM since admission, constipation may be causing urinary retention, fleet enema today to relieve this. - medications reviewed, opiates can cause retention but she is a chronic opiate user and this is new problem so that is an unlikely cause in her case #Fever, resolved Patient developed fever up to 102.1 Fahrenheit. Blood cultures 2 negative at 48 hours. Urine culture shows contamination. No recurrent fevers. Lactic acid level normal. No clear source. Discitis or spinal abscess unlikely, neck MRI negative. - s/p 5 days empiric IV zosyn # Acute on chronic anemia Recently admitted for GI bleed, H&H down trending, stable throughout the day yesterday and this morning. stool occult pending. -s/p 2 units PRBCs give on 02/11 Continue to monitor H&H daily, transfuse for Hg less than 7 # Thrombocytopenia. Stable from recent admission. Continue to monitor daily. LFTs significant only for mildly elevated bilirubin. HIT antibody negative. Additional work up ordered from prior admission including parvovirus b19 and Babesia pending. Heme consult on prior admission, recommended outpatient follow-up for likely secondary thrombocytopenia with myelosuppression related to infection plus consumption related to GI bleed, expect platelet counts to improve over the course of 2 weeks. # Hypertension Continue home isosorbide mononitrate and metoprolol Was elevated on admission likely secondary pain, now well controlled. # Atrial fibrillation status post ablation. Continue home metoprolol. No anticoagulation due to GI bleed and low platelet count Mild troponin elevation in the ED which was stable on recheck. No chest pain. # Diabetes mellitus Hold home metformin while inpatient. Sliding scale insulin, hypoglycemic protocol, consistent carbohydrate diet # Hypothyroidism Continue home levothyroxine DVT prophylaxis: Teds and sequentials. Hold on medical prophylaxis due to low platelet count. Disposition: plan for d/c to rehab pending placement GME ATTESTATION I have personally evaluated and examined the patient. Discussed with resident/student regarding plan of care and agree with the above assessment and plan. VS,Fishbone, I+O VS, Fishbone, I+O Laboratory Tests 02/19/20 08:28 Vital Signs Date Time Temp Pulse Resp B/P (MAP) Pulse Ox O2 Delivery O2 Flow Rate FiO2 02/19/20 12:46 18 02/19/20 09:00 68 119/46 02/19/20 06:04 Room Air 02/19/20 06:00 96.3 96 I&O- Last 24 Hours up to 6 AM 02/19/20 05:59 Intake Total 2370 ml Output Total 200 ml Balance 2170 ml INDIA GOLDSMITH D.O. Feb 19, 2020 14:55 ROBERTO QUIÑONES MD Feb 19, 2020 19:16
[2020-02-19] MEDS: tiZANidine 4 MG TAB PO PRN (21:46)
[2020-02-19 22:00] VITALS: BP 142/60
[2020-02-20] MEDS: LEVOTHYROXINE 100MCG TABLET (0.1MG) PO SCH (05:38)
[2020-02-20] MEDS: PERCOCET 5MG/325MG TAB PO PRN ×3 (05:39→18:54)
[2020-02-20 06:00] VITALS: BP 121/53
[2020-02-20 07:01] LABS: HEMATOCRIT 24.5 % (36.0-47.0); HEMOGLOBIN 8.2 g/dl (12.0-15.5); MEAN CORPUSCULAR HEMOGLOBIN 29.8 pg (27.0-33.0); MEAN CORPUSCULAR HGB CONC 33.5 g/dl (32.0-36.5); MEAN CORPUSCULAR VOLUME 89.1 fl (80.0-96.0); RED BLOOD COUNT 2.75 10^6/uL (4.00-5.40); WHITE BLOOD COUNT 3.8 10^3/uL (4.0-10.0)
[2020-02-20 07:05] LABS: PLATELET COUNT, AUTOMATED 27 10^3/uL (150-450)
[2020-02-20 07:18] LABS: BLOOD UREA NITROGEN 13 MG/DL (7-18); CALCIUM LEVEL 8.1 MG/DL (8.8-10.2); CARBON DIOXIDE LEVEL 28 MEQ/L (21-32); CHLORIDE LEVEL 106 MEQ/L (98-107); CREATININE FOR GFR 0.74 MG/DL (0.55-1.30); GLOMERULAR FILTRATION RATE > 60.0 (>39); GLUCOSE, FASTING 127 MG/DL (70-100); MAGNESIUM LEVEL 1.5 MG/DL (1.8-2.4); POTASSIUM SERUM 3.6 MEQ/L (3.5-5.1); SODIUM LEVEL 142 MEQ/L (136-145)
[2020-02-20] MEDS: METOPROLOL TARTRATE 100 MG TAB PO SCH ×2 (08:59→21:16)
[2020-02-20] MEDS: MAG SULF 1GM/100ML (MAG RUN) 1 GM in IV 1 EA IV SCH ×2 (09:09→10:42)
[2020-02-20] MEDS: MORPHINE 2 MG/ML 1ML VIAL (J2270) IV PRN ×2 (09:10→21:19)
[2020-02-20] MEDS: FAMOTIDINE 20 MG TAB PO SCH (09:14)
[2020-02-20] MEDS: QUEtiapine FUMARATE 50 MG TAB PO SCH ×2 (09:14→21:16)
[2020-02-20] MEDS: MAGNESIUM CHLORIDE 64 MG TABCR (SLO MAG) PO SCH (09:14)
[2020-02-20] MEDS: GABAPENTIN 300 MG CAP PO SCH ×3 (09:14→21:16)
[2020-02-20] MEDS: ISOSORBIDE MON. (IMDUR) 30 MG XR TAB PO SCH (09:14)
[2020-02-20] MEDS: LACTOBACILLUS ACIDOPHILUS CAP (BACID) PO SCH ×4 (09:14→21:16)
[2020-02-20] MEDS: DULoxetine 20 MG CAP (CYMBALTA) PO SCH (09:14)
[2020-02-20] MEDS: SENOKOT S TAB PO SCH ×2 (09:14→21:16)
[2020-02-20] MEDS: HumaLOG INSULIN (NovoLOG) PER UNIT SC SCH ×4 (09:15→21:00)
--- NOTE | 2020-02-20 12:17 | IPNPDOC ---
Text Note Date of Service The patient was seen on 02/20/20. NOTE SUBJECTIVE: Patient seen and examined this morning sitting up comfortably in bed. Her low back pain continues to bother her, but she states it feels better when she is up moving instead of laying in bed or sitting for long periods. She is optimistic about going to rehab and feels this will continue to help her. OBJECTIVE: VITAL SIGNS: See below GENERAL: Alert, comfortable, in no acute distress HEENT: Normocephalic, atraumatic, sclerae anicteric, conjunctiva clear, moist mucous membranes NECK: Supple, trachea midline, no lymphadenopathy, no JVD CARDIOVASCULAR: Regular rate and rhythm, normal S1 and S2. No murmurs, rubs, or gallops RESPIRATORY: Clear to auscultation bilaterally with equal air entry bilaterally. No wheezing, rhonchi, or rales. ABDOMEN: Soft, nontender, nondistended, bowel sounds present EXTREMITIES: No cyanosis or edema. Pulses 2+/4 in bilateral upper and lower extremities MUSCULOSKELETAL: Tenderness to palpation over the lower cervical spinous pr ocesses and paraspinal musculature. NEUROLOGIC: Alert and oriented x3 to person, place and time. No focal deficits appreciated PSYCHIATRIC: Mood and affect appropriate ASSESSMENT/PLAN: # Acute on chronic neck and back pain with new onset paresthesias Acutely worsened over the 3 days prior to admission without any clear inciting incident Orthopedic surgery consulted, no current indication for surgery Neurology consulted, appreciate their input and recommendations. Started patient on Cymbalta and gabapentin neck MRI negative for any acute source of pain, chronic changes present Blood cultures 2 negative at 48h, rule out possible infectious source such as discitis or abscess, which is low on the differential Pain clinic consulted, appreciate their input and recommendations. Changed her oral Dilaudid to Percocet and increased dose of gabapentin. PT/OT suggesting rehab placement after discharge, pending placement, ARU screen #Breast concern - Object in breast feels like the implantable loop recorder she had placed. I do not suspect this is a breast mass. # Dysuria s/p 5 days of zosyn for possible UTI, resolved today UA obtained in ED, positive for leukocyte esterase and small amount of bacteria. No symptoms at that time. Urine culture contaminated. Completed 5 day course of Zosyn - Yesterday complained of dysuria, recheck UA, reflex culture pending, no abx, dysuria resolved, culture negative - 1 day of dysuria may have been secondary to irritation from straight cath # Urinary retention, resolved - pt requiring straight cath due to retention - no BM since admission, constipation may be causing urinary retention, fleet enema today to relieve this. - medications reviewed, opiates can cause retention but she is a chronic opiate user and this is new problem so that is an unlikely cause in her case #Fever, resolved Patient developed fever up to 102.1 Fahrenheit. Blood cultures 2 negative at 48 hours. Urine culture shows contamination. No recurrent fevers. Lactic acid level normal. No clear source. Discitis or spinal abscess unlikely, neck MRI negative. - s/p 5 days empiric IV zosyn # Acute on chronic anemia Recently admitted for GI bleed, H&H down trending, stable throughout the day yesterday and this morning. stool occult pending. -s/p 2 units PRBCs give on 02/11 Continue to monitor H&H daily, transfuse for Hg less than 7 # Thrombocytopenia. Stable from recent admission. Continue to monitor daily. LFTs significant only for mildly elevated bilirubin. HIT antibody negative. Additional work up ordered from prior admission including parvovirus b19 and Babesia negative. Heme consult on prior admission, recommended outpatient follow-up for likely secondary thrombocytopenia with myelosuppression related to infection plus consumption related to GI bleed, expect platelet counts to improve over the course of 2 weeks. # Hypertension Continue home isosorbide mononitrate and metoprolol Was elevated on admission likely secondary pain, now well controlled. # Atrial fibrillation status post ablation. Continue home metoprolol. No anticoagulation due to GI bleed and low platelet count Mild troponin elevation in the ED which was stable on recheck. No chest pain. # Diabetes mellitus Hold home metformin while inpatient. Sliding scale insulin, hypoglycemic protocol, consistent carbohydrate diet # Hypothyroidism Continue home levothyroxine DVT prophylaxis: Teds and sequentials. Hold on medical prophylaxis due to low platelet count. Disposition: plan for d/c to rehab pending placement, made ALC status today. GME ATTESTATION I have personally evaluated and examined the patient. Discussed with res ident/student regarding plan of care and agree with the above assessment and plan. VS,Fishbone, I+O VS, Fishbone, I+O Laboratory Tests 02/20/20 06:03 Vital Signs Date Time Temp Pulse Resp B/P (MAP) Pulse Ox O2 Delivery O2 Flow Rate FiO2 02/20/20 09:20 18 Room Air 02/20/20 09:14 134/52 02/20/20 08:59 59 02/20/20 06:00 97.8 98 I&O- Last 24 Hours up to 6 AM 02/20/20 06:00 Intake Total 1920 ml Output Total 900 ml Balance 1020 ml INDIA GOLDSMITH D.O. Feb 20, 2020 12:17 ROBERTO QUIÑONES MD Feb 20, 2020 15:21
[2020-02-20] MEDS: tiZANidine 4 MG TAB PO PRN (17:00)
[2020-02-21] MEDS: tiZANidine 4 MG TAB PO PRN ×2 (05:37→17:30)
[2020-02-21] MEDS: LEVOTHYROXINE 100MCG TABLET (0.1MG) PO SCH (05:37)
[2020-02-21] MEDS: PERCOCET 5MG/325MG TAB PO PRN ×3 (05:38→20:42)
[2020-02-21 06:00] VITALS: BP 122/52
[2020-02-21 06:38] LABS: HEMATOCRIT 24.2 % (36.0-47.0); HEMOGLOBIN 7.9 g/dl (12.0-15.5); MEAN CORPUSCULAR HEMOGLOBIN 29.5 pg (27.0-33.0); MEAN CORPUSCULAR HGB CONC 32.6 g/dl (32.0-36.5); MEAN CORPUSCULAR VOLUME 90.3 fl (80.0-96.0); PLATELET COUNT, AUTOMATED 24 10^3/uL (150-450); RED BLOOD COUNT 2.68 10^6/uL (4.00-5.40); WHITE BLOOD COUNT 3.3 10^3/uL (4.0-10.0)
[2020-02-21 06:57] LABS: BLOOD UREA NITROGEN 11 MG/DL (7-18); CALCIUM LEVEL 7.8 MG/DL (8.8-10.2); CARBON DIOXIDE LEVEL 29 MEQ/L (21-32); CHLORIDE LEVEL 107 MEQ/L (98-107); CREATININE FOR GFR 0.82 MG/DL (0.55-1.30); GLOMERULAR FILTRATION RATE > 60.0 (>39); GLUCOSE, FASTING 112 MG/DL (70-100); MAGNESIUM LEVEL 1.8 MG/DL (1.8-2.4); SODIUM LEVEL 143 MEQ/L (136-145)
[2020-02-21] MEDS: ISOSORBIDE MON. (IMDUR) 30 MG XR TAB PO SCH (08:36)
[2020-02-21] MEDS: METOPROLOL TARTRATE 100 MG TAB PO SCH ×2 (08:36→20:41)
[2020-02-21] MEDS: FAMOTIDINE 20 MG TAB PO SCH (08:48)
[2020-02-21] MEDS: GABAPENTIN 300 MG CAP PO SCH ×3 (08:48→20:42)
[2020-02-21] MEDS: DULoxetine 20 MG CAP (CYMBALTA) PO SCH (08:48)
[2020-02-21] MEDS: LACTOBACILLUS ACIDOPHILUS CAP (BACID) PO SCH ×4 (08:48→20:42)
[2020-02-21] MEDS: QUEtiapine FUMARATE 50 MG TAB PO SCH ×2 (08:48→20:41)
[2020-02-21] MEDS: HumaLOG INSULIN (NovoLOG) PER UNIT SC SCH ×4 (08:48→20:44)
[2020-02-21] MEDS: SENOKOT S TAB PO SCH ×2 (08:49→20:43)
[2020-02-21] MEDS: MAGNESIUM CHLORIDE 64 MG TABCR (SLO MAG) PO SCH (08:49)
[2020-02-21] MEDS: MORPHINE 2 MG/ML 1ML VIAL (J2270) IV PRN ×2 (08:49→22:56)
[2020-02-22] MEDS: LEVOTHYROXINE 100MCG TABLET (0.1MG) PO SCH (05:54)
[2020-02-22] MEDS: PERCOCET 5MG/325MG TAB PO PRN ×3 (05:55→19:01)
[2020-02-22 06:00] VITALS: BP 103/47
[2020-02-22 06:13] LABS: HEMATOCRIT 23.8 % (36.0-47.0); HEMOGLOBIN 7.9 g/dl (12.0-15.5); MEAN CORPUSCULAR HEMOGLOBIN 29.9 pg (27.0-33.0); MEAN CORPUSCULAR HGB CONC 33.2 g/dl (32.0-36.5); MEAN CORPUSCULAR VOLUME 90.2 fl (80.0-96.0); RED BLOOD COUNT 2.64 10^6/uL (4.00-5.40); WHITE BLOOD COUNT 3.6 10^3/uL (4.0-10.0)
[2020-02-22 06:15] LABS: PLATELET COUNT, AUTOMATED 25 10^3/uL (150-450)
[2020-02-22 06:32] LABS: BLOOD UREA NITROGEN 12 MG/DL (7-18); CALCIUM LEVEL 8.1 MG/DL (8.8-10.2); CARBON DIOXIDE LEVEL 30 MEQ/L (21-32); CHLORIDE LEVEL 108 MEQ/L (98-107); CREATININE FOR GFR 0.79 MG/DL (0.55-1.30); GLOMERULAR FILTRATION RATE > 60.0 (>39); GLUCOSE, FASTING 138 MG/DL (70-100); MAGNESIUM LEVEL 1.6 MG/DL (1.8-2.4); POTASSIUM SERUM 4.1 MEQ/L (3.5-5.1); SODIUM LEVEL 142 MEQ/L (136-145)
[2020-02-22] MEDS ORDERED: IPRATROPIUM 0.5MG/ALBUTEROL 2.5MG INH SOL UD 3ML (DUONEB) NEB PRN (08:00)
[2020-02-22 08:05] VITALS: O2SAT 97
[2020-02-22] MEDS: MAGNESIUM CHLORIDE 64 MG TABCR (SLO MAG) PO SCH (08:33)
[2020-02-22] MEDS: FAMOTIDINE 20 MG TAB PO SCH (08:33)
[2020-02-22] MEDS: HumaLOG INSULIN (NovoLOG) PER UNIT SC SCH ×4 (08:33→21:00)
[2020-02-22] MEDS: ISOSORBIDE MON. (IMDUR) 30 MG XR TAB PO SCH (08:35)
[2020-02-22] MEDS: DULoxetine 20 MG CAP (CYMBALTA) PO SCH (08:36)
[2020-02-22] MEDS: QUEtiapine FUMARATE 50 MG TAB PO SCH ×2 (08:36→20:07)
[2020-02-22] MEDS: METOPROLOL TARTRATE 100 MG TAB PO SCH ×2 (08:36→20:07)
[2020-02-22] MEDS: SENOKOT S TAB PO SCH ×2 (08:36→20:06)
[2020-02-22] MEDS: LACTOBACILLUS ACIDOPHILUS CAP (BACID) PO SCH ×4 (08:36→20:06)
[2020-02-22] MEDS: GABAPENTIN 300 MG CAP PO SCH ×3 (08:37→20:07)
[2020-02-22] MEDS: MORPHINE 2 MG/ML 1ML VIAL (J2270) IV PRN (08:38)
--- NOTE | 2020-02-22 18:49 | IPNPDOC ---
Date Seen The patient was seen on 02/22/20. Progress Note SUBJECTIVE: Patient reported an episode of SOB this morning that completely resolved after one duoneb treatment. She states that her pain medication has been helping but continue to ask for the doses to be increased. Patient saturating well throughout the day despite complaints of SOB in AM. OBJECTIVE PHYSICAL EXAMINATION: VITAL SIGNS: Please see below. General: No acute distress, Alert Eyes: Normal sclera, EOMI HENT: Atraumatic Cardiovascular: Normal rate, normal rhythm. Pulmonary: Clear to auscultation b/l, no wheezing GI: Soft, nontender, nondistended MSK: Reported tenderness over cervical and lower lumbar spine when palpated. Skin: Warm and dry Neuro: CN grossly intact. No focal deficits. Psych: oriented x 3 LABORATORY DATA, IMAGING STUDIES, MICROBIOLOGY: Please see below. DVT prophylaxis ordered?: KAYCE ASSESSMENT AND PLAN: # Acute on chronic neck and back pain with new onset paresthesias Acutely worsened over the 3 days prior to admission without any clear inciting incident Orthopedic surgery consulted, no current indication for surgery Neurology consulted, appreciate their input and recommendations. Started patient on Cymbalta and gabapentin neck MRI negative for any acute source of pain, chronic changes present Blood cultures negative. Pain clinic consulted. Changed her oral Dilaudid to Percocet and increased dose of gabapentin. PT[facility]OT[facility] - Patient continues to ask for increase in pain medications to take the edge off. Seem to be very specific about pain meds, somewhat suspicious. #Breast concern - Object in breast feels like the implantable loop recorder she had placed. I do not suspect this is a breast mass. # Dysuria s/p 5 days of zosyn for possible UTI, resolved # Urinary retention, resolved #Fever, resolved Patient developed fever up to 102.1 Fahrenheit. Blood cultures 2 negative at 48 hours. Urine culture shows contamination. No recurrent fevers. Lactic acid level normal. No clear source. Discitis or spinal abscess unlikely, neck MRI negative. - s/p 5 days empiric IV zosyn # Acute on chronic anemia Recently admitted for GI bleed, H&H down trending, stable throughout the day yesterday and this morning. stool occult negative. -s/p 2 units PRBCs give on 02/11 transfuse for Hg less than 7 # Thrombocytopenia. Stable from recent admission. Continue to monitor daily. LFTs significant only for mildly elevated bilirubin. HIT antibody negative. Additional work up ordered from prior admission including parvovirus b19 and Babesia negative. Heme consult on prior admission, recommended outpatient follow-up for likely secondary thrombocytopenia with myelosuppression related to infection plus consumption related to GI bleed, expect platelet counts to improve over the course of 2 weeks. # Hypertension Continue home isosorbide mononitrate and metoprolol Was elevated on admission likely secondary pain, now well controlled. # Atrial fibrillation status post ablation. Continue home metoprolol. No anticoagulation due to GI bleed and low platelet count Mild troponin elevation in the ED which was stable on recheck. No chest pain. # Diabetes mellitus Hold home metformin while inpatient. Sliding scale insulin, hypoglycemic protocol, consistent carbohydrate diet # Hypothyroidism Continue home levothyroxine DVT prophylaxis: Teds and sequentials. Hold on medical prophylaxis due to low platelet count. Disposition: plan for d/c to rehab pending placement, ALC status. VS, I&O, 24H, [facility] Vital Signs/I&O Vital Signs Date Time Temp Pulse Resp B/P (MAP) Pulse Ox O2 Delivery O2 Flow Rate FiO2 02/22/20 13:09 17 02/22/20 08:36 67 02/22/20 08:35 134/50 02/22/20 08:05 97 Room Air 02/22/20 06:00 98.0 I&O- Last 24 Hours up to 6 AM 02/22/20 06:00 Intake Total 1410 ml Output Total 0 ml Balance 1410 ml Laboratory Data 24H LABS Laboratory Tests 2 02/21/20 20:04: Bedside Glucose (Misc Panel) 119H 02/22/20 05:27: Nucleated Red Blood Cells % (auto) 0.6H, Anion Gap 4L, Glomerular Filtration Rate > 60.0, Calcium Level 8.1L, Magnesium Level 1.6L 02/22/20 11:24: Bedside Glucose (Misc Panel) 137H 02/22/20 16:20: Bedside Glucose (Misc Panel) 88 CBC/BMP Laboratory Tests 02/22/20 05:27 Microbiology Microbiology 02/15/20 Urine Culture - Final, Complete 02/13/20 Stool Occult Blood (PASQUALE) - Final, Complete ROBERTO QUIÑONES MD Feb 22, 2020 18:49
[2020-02-23] MEDS: LEVOTHYROXINE 100MCG TABLET (0.1MG) PO SCH (05:34)
[2020-02-23] MEDS: PERCOCET 5MG/325MG TAB PO PRN ×3 (05:34→14:47)
[2020-02-23 05:56] LABS: HEMATOCRIT 27.1 % (36.0-47.0); HEMOGLOBIN 8.9 g/dl (12.0-15.5); MEAN CORPUSCULAR HEMOGLOBIN 29.9 pg (27.0-33.0); MEAN CORPUSCULAR HGB CONC 32.8 g/dl (32.0-36.5); MEAN CORPUSCULAR VOLUME 90.9 fl (80.0-96.0); RED BLOOD COUNT 2.98 10^6/uL (4.00-5.40); WHITE BLOOD COUNT 3.8 10^3/uL (4.0-10.0)
[2020-02-23 06:00] VITALS: BP 127/87
[2020-02-23 06:06] LABS: PLATELET COUNT, AUTOMATED 27 10^3/uL (150-450)
[2020-02-23 06:19] LABS: BLOOD UREA NITROGEN 14 MG/DL (7-18); CALCIUM LEVEL 8.2 MG/DL (8.8-10.2); CARBON DIOXIDE LEVEL 28 MEQ/L (21-32); CHLORIDE LEVEL 106 MEQ/L (98-107); CREATININE FOR GFR 0.85 MG/DL (0.55-1.30); GLOMERULAR FILTRATION RATE > 60.0 (>39); GLUCOSE, FASTING 117 MG/DL (70-100); MAGNESIUM LEVEL 1.6 MG/DL (1.8-2.4); POTASSIUM SERUM 4.1 MEQ/L (3.5-5.1); SODIUM LEVEL 141 MEQ/L (136-145)
[2020-02-23] MEDS ORDERED: MAG SULF 1GM/100ML (MAG RUN) 1 GM in IV 1 EA IV ONE (08:00)
[2020-02-23] MEDS: HumaLOG INSULIN (NovoLOG) PER UNIT SC SCH ×2 (08:18→12:00)
[2020-02-23] MEDS: SENOKOT S TAB PO SCH (08:19)
[2020-02-23] MEDS: FAMOTIDINE 20 MG TAB PO SCH (08:19)
[2020-02-23] MEDS: MAGNESIUM CHLORIDE 64 MG TABCR (SLO MAG) PO SCH (08:19)
[2020-02-23] MEDS: GABAPENTIN 300 MG CAP PO SCH (08:20)
[2020-02-23] MEDS: LACTOBACILLUS ACIDOPHILUS CAP (BACID) PO SCH ×2 (08:20→12:24)
[2020-02-23] MEDS: QUEtiapine FUMARATE 50 MG TAB PO SCH (08:20)
[2020-02-23] MEDS: DULoxetine 20 MG CAP (CYMBALTA) PO SCH (08:20)
[2020-02-23 08:26] VITALS: BP 151/62
[2020-02-23] MEDS: ISOSORBIDE MON. (IMDUR) 30 MG XR TAB PO SCH (08:26)
[2020-02-23] MEDS: METOPROLOL TARTRATE 100 MG TAB PO SCH (08:26)
[2020-02-23 14:00] VITALS: BP 115/55
== END 2020-02-23 15:44 | DRG 552 ==
LOC: M ED 07:40 → EDBD 07:40 → M ED INP 17:33 → ENRESERV 02-10 00:38 → M ICU 02-10 01:52 → M MSPAV 02-11 18:19
PROVIDERS: ADMIT Internal Medicine; ATTEND Student in an Organized Health Care Education/Training Program
DX: M51.36 Other intervertebral disc degeneration, lumbar region (principal); E11.9 Type 2 diabetes mellitus without complications; I48.91 Unspecified atrial fibrillation; I10 Essential (primary) hypertension; E03.9 Hypothyroidism, unspecified; I72.8 Aneurysm of other specified arteries; G83.9 Paralytic syndrome, unspecified; M54.2 Cervicalgia; M51.34 Other intervertebral disc degeneration, thoracic region; Z79.899 Other long term (current) drug therapy; Z88.2 Allergy status to sulfonamides; Z86.73 Personal history of transient ischemic attack (TIA), and cerebral infarction without residual deficits; Z96.642 Presence of left artificial hip joint; D64.9 Anemia, unspecified; D69.6 Thrombocytopenia, unspecified; R33.9 Retention of urine, unspecified

== ENCOUNTER → 2020-04-22 | Outpatient (REF) | payer MEDICARE ==
[~2020-04-22] MED LIST changes: +AMLO1TAB24 PO; -AMLO5TAB6 PO; +CYMB1CAP4 PO; +MAGN64TASA PO; +MELA1TAB9 PO; +POLY1POW38 PO
[2020-04-22 14:55] LABS: BASO % 0.3 % (0.0-1.0); EOS % 0.6 % (0.0-3.0); HEMATOCRIT 23.2 % (36.0-47.0); HEMOGLOBIN 7.9 g/dl (12.0-15.5); LYMPH % 60.8 % (24.0-44.0); MEAN CORPUSCULAR HEMOGLOBIN 30.3 pg (27.0-33.0); MEAN CORPUSCULAR HGB CONC 34.1 g/dl (32.0-36.5); MEAN CORPUSCULAR VOLUME 88.9 fl (80.0-96.0); MONO # 0.4 10^3/uL (0.0-0.8); MONO % 11.2 % (0.0-5.0); NEUTROPHILS % 26.5 % (36.0-66.0); RED BLOOD COUNT 2.61 10^6/uL (4.00-5.40); WHITE BLOOD COUNT 3.3 10^3/uL (4.0-10.0)
[2020-04-22 15:12] LABS: NEUTROPHILS # 0.9 10^3/uL (1.5-8.5); PLATELET COUNT, AUTOMATED 22 10^3/uL (150-450)
[2020-04-22 15:15] LABS: ERYTHROCYTE SEDIMENTATION RATE 74 mm/hr (0-30)
[2020-04-22 15:26] LABS: HEMATOCRIT 22.7 % (36.0-47.0)
[2020-04-22 15:27] LABS: PERCENT SATURATION 96.2 % (13.2-45.0)
== END ==
LOC: M LAB REF 14:43
PROVIDERS: ATTEND Internal Medicine Hematology & Oncology
DX: D64.9 Anemia, unspecified (principal)